=== PATIENT | female | born 1945 | race Caucasian/White ===

== ENCOUNTER → 2016-09-10 | Outpatient (CLI) | payer OTHER | END | disposition home or self-care (01) | LOC: C.CPL 12:58 | DX: Z01.810 Encounter for preprocedural cardiovascular examination (principal) ==

== ENCOUNTER → 2016-10-15 | Outpatient (CLI) | payer OTHER ==
[2016-10-15 13:09] LABS: HEMATOCRIT 36.5 % (37-47); MEAN CELL VOLUME 85.1 fL (80-100); MEAN CORPUSCULAR HEMOGLOBIN 28.9 pg (25-34); PLATELET COUNT 279 K/uL (130-400); RED BLOOD COUNT 4.29 M/uL (4.2-5.4); WHITE BLOOD COUNT 6.83 K/uL (4.8-10.8)
[2016-10-15 13:27] LABS: URINE APPEARANCE CLEAR (CLEAR); URINE BILIRUBIN NEG (NEG); URINE COLOR YELLOW; URINE NITRITE NEG (NEG); URINE SPECIFIC GRAVITY 1.014 (1.000-1.030); UROBILINOGEN NEG (NEG)
[2016-10-15 13:32] LABS: MANUAL MICROSCOPIC REQUIRED? NO; REVIEW REQ? NO
[2016-10-15 13:35] LABS: BLOOD UREA NITROGEN 19 mg/dl (7-18); CALCIUM 9.3 mg/dl (8.5-10.1); CARBON DIOXIDE 31 mmol/L (21-32); CHLORIDE 100 mmol/L (98-107); GLUCOSE 98 mg/dl (70-99); PHOSPHORUS 3.1 mg/dl (2.5-4.9); POTASSIUM 3.6 mmol/L (3.5-5.1); SODIUM 138 mmol/L (136-145)
[2016-10-15 13:52] LABS: URINE PROTIEN/CREAT RATIO 0.1 (0-0.2); URINE TOTAL PROTEIN 12.5 mg/dl (0-11.9)
== END | disposition home or self-care (01) ==
LOC: C.LAB1850 11:29
PROVIDERS: ATTEND Internal Medicine Nephrology
DX: I12.9 Hypertensive chronic kidney disease with stage 1 through stage 4 chronic kidney disease, or unspecified chronic kidney disease (principal); N18.3 Chronic kidney disease, stage 3 (moderate); E55.9 Vitamin D deficiency, unspecified; N25.81 Secondary hyperparathyroidism of renal origin; D64.9 Anemia, unspecified

== ENCOUNTER → 2016-11-20 | Outpatient (CLI) | payer OTHER ==
[2016-11-28 19:49] LABS: ALBUMIN 4.3 G/DL (3.8-4.8); ANTI-CENTROMERE AB <1.0 NEG AI (<1.0 NEG); ANTI-SS-A <1.0 NEG AI (<1.0 NEG); ANTI-SS-B <1.0 NEG AI (<1.0 NEG); Sm Antibody <1.0 NEG AI (<1.0 NEG); TOTAL PROTEIN 7.1 G/DL (6.2-8.3)
== END | disposition home or self-care (01) ==
LOC: C.LAB1850 15:03
PROVIDERS: ATTEND Internal Medicine Rheumatology
DX: R76.8 Other specified abnormal immunological findings in serum (principal)

== ENCOUNTER → 2017-04-22 | Outpatient (CLI) | payer OTHER ==
[2017-04-22 14:18] LABS: HEMATOCRIT 37.1 % (37-47); MEAN CELL VOLUME 88.1 fL (80-100); MEAN CORPUSCULAR HEMOGLOBIN 29.9 pg (25-34); PLATELET COUNT 265 K/uL (130-400); RED BLOOD COUNT 4.21 M/uL (4.2-5.4); WHITE BLOOD COUNT 6.67 K/uL (4.8-10.8)
[2017-04-22 14:27] LABS: URINE APPEARANCE CLEAR (CLEAR); URINE BILIRUBIN NEG (NEG); URINE COLOR YELLOW; URINE EPITHELIAL CELL AUTO 0-5 /lpf (0-5); URINE NITRITE NEG (NEG); URINE SPECIFIC GRAVITY 1.014 (1.000-1.030); UROBILINOGEN NEG (NEG)
[2017-04-22 14:32] LABS: ALT/SGPT 13 U/L (12-78); AST/SGOT 17 U/L (15-37); BLOOD UREA NITROGEN 21 mg/dl (7-18); CALCIUM 9.5 mg/dl (8.5-10.1); CARBON DIOXIDE 28 mmol/L (21-32); CHLORIDE 101 mmol/L (98-107); GLUCOSE 98 mg/dl (70-99); MANUAL MICROSCOPIC REQUIRED? NO; POTASSIUM 3.5 mmol/L (3.5-5.1); REVIEW REQ? NO; SODIUM 138 mmol/L (136-145)
[2017-04-22 14:35] LABS: ALB/GLOB RATIO 1.1 (0.9-2); ALKALINE PHOSPHATASE 74 U/L (45-117); URINE PROTIEN/CREAT RATIO 0.1 (0-0.2); URINE TOTAL PROTEIN 10.2 mg/dl (0-11.9)
== END | disposition home or self-care (01) ==
LOC: C.LAB1850 12:18
PROVIDERS: ATTEND Internal Medicine Nephrology
DX: I12.9 Hypertensive chronic kidney disease with stage 1 through stage 4 chronic kidney disease, or unspecified chronic kidney disease (principal); N18.3 Chronic kidney disease, stage 3 (moderate); E55.9 Vitamin D deficiency, unspecified; N25.81 Secondary hyperparathyroidism of renal origin; D64.9 Anemia, unspecified

== ENCOUNTER → 2017-07-03 | Outpatient (CLI) | payer OTHER | END | disposition home or self-care (01) | LOC: C.LAB1850 15:51 | PROVIDERS: ATTEND Internal Medicine Rheumatology | DX: R76.8 Other specified abnormal immunological findings in serum (principal) ==

== ENCOUNTER → 2017-10-18 | Outpatient (CLI) | payer OTHER ==
[2017-10-18 12:23] LABS: HEMATOCRIT 36.1 % (37-47); HEMOGLOBIN 12.1 g/dL (12.0-16.0); MEAN CELL VOLUME 87.6 fL (80-100); MEAN CORPUSCULAR HEMOGLOBIN 29.4 pg (25-34); MEAN CORPUSCULAR HGB CONC 33.5 g/dl (32-36); MEAN PLATELET VOLUME 10.1 fL (7.4-10.4); PLATELET COUNT 274 K/uL (130-400); RED CELL DISTRIBUTION WIDTH CV 13.6 % (11.5-14.5); RED CELL DISTRIBUTION WIDTH SD 43.9 fL (36.4-46.3); WHITE BLOOD COUNT 6.69 K/uL (4.8-10.8)
[2017-10-18 12:31] LABS: ALBUMIN 3.9 gm/dl (3.4-5.0); ALT/SGPT 19 U/L (12-78); AST/SGOT 18 U/L (15-37); BLOOD UREA NITROGEN 23 mg/dl (7-18); CALCIUM 10.4 mg/dl (8.5-10.1); CARBON DIOXIDE 28 mmol/L (21-32); CREATININE 1.37 mg/dl (0.60-1.20); GLUCOSE 95 mg/dl (70-99); POTASSIUM 3.5 mmol/L (3.5-5.1); SODIUM 132 mmol/L (136-145)
[2017-10-18 12:32] LABS: ALKALINE PHOSPHATASE 68 U/L (45-117); TOTAL PROTEIN 7.4 gm/dl (6.4-8.2)
== END | disposition home or self-care (01) ==
LOC: C.LAB1850 10:35
PROVIDERS: ATTEND Internal Medicine Nephrology
DX: N18.3 Chronic kidney disease, stage 3 (moderate) (principal); I12.9 Hypertensive chronic kidney disease with stage 1 through stage 4 chronic kidney disease, or unspecified chronic kidney disease; N25.81 Secondary hyperparathyroidism of renal origin; D64.9 Anemia, unspecified; I73.9 Peripheral vascular disease, unspecified; E55.9 Vitamin D deficiency, unspecified; R76.8 Other specified abnormal immunological findings in serum

== ENCOUNTER → 2017-12-17 | Outpatient (CLI) | payer OTHER ==
[2017-12-17 11:07] LABS: ALBUMIN 3.6 gm/dl (3.4-5.0); BLOOD UREA NITROGEN 23 mg/dl (7-18); CALCIUM 9.3 mg/dl (8.5-10.1); CARBON DIOXIDE 32 mmol/L (21-32); GLUCOSE 92 mg/dl (70-99); PHOSPHORUS 3.4 mg/dl (2.5-4.9); SODIUM 138 mmol/L (136-145)
== END | disposition home or self-care (01) ==
LOC: C.LAB1850 09:53
PROVIDERS: ATTEND Internal Medicine Nephrology
DX: N18.3 Chronic kidney disease, stage 3 (moderate) (principal); I12.9 Hypertensive chronic kidney disease with stage 1 through stage 4 chronic kidney disease, or unspecified chronic kidney disease; E55.9 Vitamin D deficiency, unspecified; N25.81 Secondary hyperparathyroidism of renal origin; D64.9 Anemia, unspecified; E87.1 Hypo-osmolality and hyponatremia

== ENCOUNTER 2023-08-05 08:13 | Inpatient (IN) ==
--- OUTSIDE RECORDS SUMMARY | 2023-08-05 08:34 | External Medical Summary | Continuity of Care Document ---
Author Name Unknown Organization [facility] Address [address] [place] [id number] Care Team Providers Care Blood And Plasma Laboratory Assistant Name Role Phone Peter Stark Primary Care Physician [phone] Encounter [facility] [id number] Date(s): 08/01/23 - 08/01/[address] [phone] Discharge Disposition: Home or Self Care Attending Physician: DOMINIQUE Garcia Ashley Referring Physician: DOMINIQUE Garcia Ashley Allergies, Adverse Reactions, Alerts Substance Reaction Severity Status doxycycline Heartburn Moderate Active diltiazem Active doxepin Active Macrobid Active Zestril Hives Active Tagamet Active Active Orudis Active Protonix Active IVP dye Active Cymbalta Active HYDROcodone Dizzy Moderate Active Tagamet HB Hives Moderate Active regadenoson Loss of vision of ri ght eye Loss of vision of left eye Moderate Active Immunizations Given and Recorded Vaccine Date Status Refusal Reason SARS-CoV-2 (COVID-19) mRNA-1273 vaccine 1 10/08/20 Recorded SARS-CoV-2 (COVID-19) mRNA-1273 vaccine 2 09/10/20 Recorded pneumococcal 23-valent vaccine 3 07/02/07 Recorded 1Result Comment: 2021-03-10: Historical information-source unspecified 2Result Comment: 2021-03-10: Historical information-source unspecified 3Result Comment: 2021-03-10: Historical information-source unspecified Medications amLODIPine 5 mg oral tablet Start: 04/21/20 14:48:00 EDT, 1 tab, PO, bid Start Date: 04/21/20 Status: Ordered Dulcolax Laxative 5 mg oral delayed release tablet Start: 03/11/21 10:54:00 EDT, 1 tab, PO, Daily Start Date: 03/11/21 Status: Ordered furosemide Start: 01/14/23 14:25:00 EDT Start Date: 01/14/23 Status: Ordered gabapentin 300 mg oral capsule Start: 08/30/22 10:24:00 EST, 1 cap, PO, Daily Start Date: 08/30/22 Status: Ordered Linzess 72 mcg oral capsule Start: 03/04/23 14:25:00 EDT, 1 cap, PO, Daily Start Date: 03/04/23 Status: Ordered LORazepam 0.5 mg oral tablet Start: 03/04/23 14:27:00 EDT, 1 tab, PO, Daily, PRN: as needed for anxiety Start Date: 03/04/23 Status: Ordered losartan 50 mg oral tablet Start: 08/30/22 10:25:00 EST, 1 tab, PO, Daily Start Date: 08/30/22 Status: Ordered Medrol Dosepak 4 mg oral tablet Start: 10/08/22 11:02:00 EDT, See Instructions, Disp# 21 tab, Take as directed on package labeling for 6 days., Pharmacy: [id number] Start Date: 10/08/22 Stop Date: 10/14/22 Status: Ordered metoprolol succinate 25 mg oral tablet, extended release Start: 03/09/21 13:29:00 EDT, 1 tab, PO, bid Start Date: 03/09/21 Status: Ordered simethicone 80 mg oral tablet, chewable Start: 03/11/21 10:54:00 EDT, 1 tab, PO, ac and hs, PRN: Abdominal bloating - gas pain Start Date: 03/11/21 Status: Ordered Tylenol 500 mg oral tablet Start: 03/11/21 10:54:00 EDT, 2 tab, PO, q6h, PRN: fever/mild pain (1-3) Start Date: 03/11/21 Status: Ordered Vitamin D3 50,000 intl units (1250 mcg) oral capsule Start: 04/21/20 14:49:00 EDT, 1 cap, PO, [id number] Start Date: 04/21/20 Status: Ordered Problem List Condition Confirmation Course Effective Dates Status H ealth Status Informant ANXIETY Confirmed Active Varghese esophagus Confirmed Active Constipation Confirmed Active DEPRESSION Confirmed Active GERD Confirmed Active HTN (hypertension) Confirmed Active Hyperlipidemia Confirmed Active Liver lesion Confirmed Active Low back pain Confirmed Active Right lumbar radiculopathy Confirmed Active Pain Confirmed Active Odynophagia Confirmed Active Procedures Procedure Date Related Diagnosis Body Site Status Benign tumor of breast 1982 Completed Hysterectomy 1973 Completed Appendectomy 1953 Completed Tonsillectomy 1948 Completed Colonoscopy Completed Endoscopy Completed 1removed Results Radiology Reports * Exam Date Time Procedure Performing Provider Status 08/01/23 11:09 AM NVI Epi Steroid Inj Lumb Or Sacral Spi Shira Pratt; Final Notes: (NVI Epi Steroid Inj Lumb Or Sacral Spine) Reason For Exam: L3/L4 IL TASHI lumbar spine (To use Gadavist) NVI Epi Steroid Inj Lumb Or Sacral Spine PROCEDURE: FLUOROSCOPY-GUIDED INTERLAMINAR EPIDURAL STEROID INJECTION L3-L4 LUMBOSACRAL SPINE CLINICAL HISTORY: M54.16: Radiculopathy, lumbar region; L3/L4 IL TASHI lumbar spine (To use Gadavist) PHYSICIAN: Jules Gonzalez M.D. FLUOROSCOPY TIME: 1.3 minutes TECHNIQUE: After explaining the risks which include but are not limited to pain, infection, bleeding, headacheand nerve injury, benefits, and alternatives of the procedure verbal consent was obtained from the patient. She was placed prone on the fluoroscopy table. The skin was marked at L3-L4 to target the epidural space through the interlaminar access. A timeout was performed. She was prepped and draped in the usual sterile manner. Local anesthetic was administered at the needle placement site. Next, a 3.5 inch 22-gauge spinal needle was taken and guided under fluoroscopy into the posterior epidural space through the interlaminar access at L3-L4. The needle position was verified with injection of 1cc of Gadavist. Next, 4cc mixture of Kenalog 40 mg mixed with lidocaine 1% was injected into the epidural space. The needle was withdrawn, hemostasis was achieved and sterile dressing was applied. She tolerated the procedure well. She was given a pain log to document the pain response over a period of 7 days. Finally, she left the fluoroscopy suite in stable condition. IMPRESSION: Fluoroscopy guided interlaminar epidural steroid injection lumbar spine at L3-L4 as described above. Workstation ID: [id number] Final Dictated by:MD CarlosHina Dictated DT/TM:08/01/2023 3:53 Signed by:MD Gonzalez Krishnamoorthy Signed (Electronic Signature):08/01/2023 3:52 p Social History Social History Type Response Smoking Status Never smoked cigaret richard Sex Female Patient Care team information Care Team Personnel Name: DOMINIQUE Garcia Ashley Position: Physician Campus Recruiting Coordinator - Neurosurgery Member Role: Lifetime Relationship Address: Address: [address] [place] [address] [place] [id number] Name: MD Stark Robert C Position: Referring Member Role: Primary Care Provider Address: Address: [address] [place] [address] [place] [id number] Care Team Related Persons Name: SENAIT LIMA Address: home [address] [facility] [place] [phone] Name: VAN POWELL Address: home NO ADDRESS PROVIDED
[2023-08-05 10:05] LABS: Basophils # (auto) 0.06 K/uL (0.00-0.20); Basophils % (auto) 0.6 %; Eosinophils # (auto) 0.03 K/uL (0.00-0.50); Eosinophils % (auto) 0.3 %; Hematocrit (blood only) 41.7 % (37.0-47.0); Hemoglobin 13.6 g/dl (12.0-16.0); Immature Granulocytes # (auto) 0.04 K/uL (0.01-0.20); Immature Granulocytes % (auto) 0.4 %; Lymphocytes # (auto) 2.45 K/uL (1.20-3.40); Lymphocytes % (auto) 23.8 %; Mean Corpuscular Hemoglobin 29.1 pg (25.0-34.0); Mean Corpuscular Hgb Conc 32.6 g/dL (32.0-36.0); Mean Corpuscular Volume 89.3 fL (80.0-100.0); Mean Platelet Volume 9.8 fL (9.4-12.4); Monocytes # (auto) 0.85 K/uL (0.11-0.59); Monocytes % (auto) 8.3 %; Neutrophils # (auto) 6.85 K/uL (1.40-6.50); Neutrophils % (auto) 66.6 %; Platelet Count 308 K/uL (130-400); RDW Coefficient of Variation 13.2 % (11.5-14.5); RDW Standard Deviation 43.2 fL (36.4-46.3); Red Blood Count 4.67 M/uL (4.20-5.40); White Blood Count 10.28 K/ul (4.8-10.8)
[2023-08-05 10:06] LABS: Appearance Urine Clear (Clear); Bilirubin Urine Negative (Negative); Blood Urine Negative (Negative); Color Urine Yellow; Glucose Urine UA Negative (Negative); Ketones Urine Negative (Negative); Leukocyte Esterase Urine Negative (Negative); Nitrite Urine Negative (Negative); Protein Urine Negative (Negative); Specific Gravity Urine 1.011 (1.000-1.030); Urobilinogen Urine Negative (Negative)
--- NOTE | 2023-08-05 10:25 | Emergency Department Note ---
History of Present Illness General Chief complaint: Flank Pain Stated complaint: RIGHT SIDE PAIN Time Seen by Provider: 08/05/23 10:06 Source: patient and old records reviewed Mode of arrival: ambulatory Limitations: no limitations History of Present Illness This patient is 77-year-old female who comes in complaining of right flank pain since Saturday its gotten worse overnight no shortness breath or pleurisy no injury no chest pain she felt like she could have a low-grade temperature of 98 8 which is high for her she says no nausea or vomiting. She has chronic constipation was no different no new numbness or weakness she wears a brace on her legs secondary to back pain but no acute swelling or pain in her leg. She did have an ultrasound a couple months ago for chronic bloating and she said that there were no stones but her gallbladder looked a little distended. No rash. Home Medications Medication Instructions Recorded Confirmed Type lorazepam 0.5 mg tablet 0.5 mg PO DAILY PRN Anxiety 04/14/21 08/05/23 History metoprolol succinate 25 mg 25 mg PO BID 04/14/21 08/05/23 History tablet,extended release 24 hr acetaminophen 500 mg tablet 1,000 mg PO Q6H PRN Back Pain 04/27/21 08/05/23 History (Tylenol Extra Strength) ergocalciferol (vitamin D2) 1,250 50,000 unit PO Q30D 05/13/23 08/05/23 History mcg (50,000 unit) capsule furosemide 20 mg tablet 20 - 40 mg PO DAILY PRN Fluid 05/13/23 08/05/23 History Retention linaclotide 72 mcg capsule 72 mcg PO QAM 05/13/23 08/05/23 History (Linzess) losartan 100 mg tablet 100 mg PO QAM 05/13/23 08/05/23 History amlodipine 10 mg tablet 10 mg PO DAILY 08/05/23 08/05/23 History Allergies Allergy/AdvReac Type Severity Reaction Status Date / Time atropine [From ] Allergy Intermediate Hives Verified 06/05/23 11:57 cimetidine [From Tagamet] Allergy Intermediate Hives Verified 06/05/23 11:57 hyoscyamine [From ] Allergy Intermediate Hives Verified 06/05/23 11:57 Iodinated Contrast Media Allergy Intermediate Hives Verified 06/05/23 11:57 [Iodinated Contrast- Oral and IV Dye] nitrofurantoin Allergy Intermediate Rash Verified 06/05/23 11:57 [From Macrobid] phenobarbital [From ] Allergy Intermediate Hives Verified 06/05/23 11:57 regadenoson Allergy Intermediate loss of Verified 06/05/23 11:57 vision, low Blood pressure scopolamine [From ] Allergy Intermediate Hives Verified 06/05/23 11:57 ketoprofen [From Orudis] Allergy Mild Rash Verified 06/05/23 11:57 duloxetine [From Cymbalta] AdvReac Intermediate Swelling Verified 06/05/23 11:57 diltiazem AdvReac Mild Hallucinati Verified 06/05/23 11:57 ng doxepin AdvReac Mild Hallucinati Verified 06/05/23 11:57 ng doxycycline AdvReac Mild Heartburn Verified 06/05/23 11:57 hydrocodone AdvReac Mild Dizziness Verified 06/05/23 11:57 lisinopril [From Zestril] AdvReac Mild Swelling Verified 06/05/23 11:57 pantoprazole [From Protonix] AdvReac Mild Dizziness Verified 06/05/23 11:57 Past Med/Surg History Medical History Hx of cardiac murmur has had since age 3, "it comes and goes"; f/u dr. 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"; F/U DR PATEL Surgical History History of left cataract extraction History of dilatation and curettage History of esophagogastroduodenoscopy (EGD) History of breast biopsy RIGHT BENIGN History of hysterectomy History of appendectomy History of tonsillectomy H/O colonoscopy Family History Other No known health problems Social History Smoking Status: Never smoker Second Hand Exposure: No; Do You Dip or Chew Tobacco: No; Hx Alcohol Use: No Hx Substance Use: Yes (medical marijuana) Last Used Substance Other:: none for over 1 year Substance Use Type Other:: MEDICAL MARIJUANA CARD Preferred Language: Lao Communication Ability: Effective Flake Cutter Operator Required: No Beliefs That Will Affect Care: None Current Living Situation: Spouse current occupational status: retired Feels Safe at Home: Yes Assistive Devices: Brace/Splint/Immobilizer, Cane and Glasses Review of Systems A total of 10 systems reviewed and were otherwise negative Physical Exam Vital Signs Vital Signs - 24 hr 08/05/23 08:24 08/05/23 14:20 Temperature 36.8 C Temperature Source Temporal Artery Scan Pulse Rate 65 Pulse Rate [Right Finger] 68 Respiratory Rate 18 18 Respiratory Effort / Characteristics Non-Labored Spontaneous Non-Labored Spontaneous Respiratory Depth Normal Normal Respiratory Pattern Regular Blood Pressure 211/95 H Blood Pressure [Right Arm] 198/84 H Blood Pressure Mean 133 Blood Pressure Mean [Right Arm] 122 Blood Pressure Position Sitting Pulse Oximetry 100 98 Oxygen Delivery Method Room Air Room Air Sepsis Recent Fever Within 48 Hours No Sepsis New/Unexplained Change in Mental Status N/A Sepsis Action Taken by Nursing No Action Required General: Well developed well nourished older female who appears in no acute distress, breathing comfortably on room air. Normal speech HEENT: Normal cephalic atraumatic. Pupils are equal round and reactive to light. Extraocular movements are intact. Oropharynx is pink with moist mucous membranes. No swelling of the mouth lips or tongue. Neck: Supple with a midline trachea. No meningeal signs or stiffness, no JVD or bruits. No Stridor. Chest: Clear to auscultation bilaterally. No wheezes or rhonchi. No increased work of breathing. Heart: Regular rate and rhythm without murmurs or gallops. Abdomen: Soft nontender, nondistended without rebound guarding or rigidity. She is moderately tender palpation the right lateral abdomen Extremities: No cyanosis clubbing or edema. No calf tenderness or assymetry Spine/Back. Non tender to palpation. No CVA tenderness Skin: Good turgor without rashes. Neurologic exam: Cranial nerves two through 12 are intact. Motor and sensation are intact and symmetrical throughout. Course Administered Medications Discontinued Medications Sodium Chloride (Nss) 500 mls @ 999 mls/hr IV .Q31M ONE Stop: 08/05/23 14:36 Last Admin: 08/05/23 14:17 Dose: 999 mls/hr Documented By: JAMEY Morphine Sulfate (Morphine Sulfate 2 Mg/Ml Carp) 2 mg IV NOW STA Stop: 08/05/23 13:32 Last Admin: 08/05/23 14:17 Dose: 2 mg Documented By: JAMEY Ondansetron HCl (Ondansetron Inj 2 Mg/Ml 2 Ml Vial) 4 mg IV NOW STA Stop: 08/05/23 13:32 Last Admin: 08/05/23 14:17 Dose: 4 mg Documented By: JAMEY Medical Decision Making Differential Diagnosis Kidney stone, kidney infection, gallbladder disease, musculoskeletal, pulmonary disease, electrolyte or metabolic abnormality Medical Records Attestation: I reviewed the patient's medical records. Home Medications Current Medication List: was personally reviewed by me Laboratory Data Attestation: I reviewed the patient's lab results. 08/05/23 09:45 08/05/23 Unknown Lab Results 08/05/23 08/05/23 08/05/23 Range/Units 09:45 14:53 Unknown WBC 10.28 (4.8-10.8) K/ul RBC 4.67 (4.20-5.40) M/uL Hgb 13.6 (12.0-16.0) g/dl Hct 41.7 (37.0-47.0) % MCV 89.3 (80.0-100.0) fL MCH 29.1 (25.0-34.0) pg MCHC 32.6 (32.0-36.0) g/dL RDW Std Deviation 43.2 (36.4-46.3) fL RDW Coeff of Jordi 13.2 (11.5-14.5) % Plt Count 308 (130-400) K/uL MPV 9.8 (9.4-12.4) fL Immature Gran % (Auto) 0.4 % Neut % (Auto) 66.6 % Lymph % (Auto) 23.8 % [place] % (Auto) 8.3 % Eos % (Auto) 0.3 % Baso % (Auto) 0.6 % Neut # (Auto) 6.85 H (1.40-6.50) K/uL Lymph # (Auto) 2.45 (1.20-3.40) K/uL [place] # (Auto) 0.85 H (0.11-0.59) K/uL Eos # (Auto) 0.03 (0.00-0.50) K/uL Baso # (Auto) 0.06 (0.00-0.20) K/uL Immature Gran # (Auto) 0.04 (0.01-0.20) K/uL ESR 50 H (0-30) mm/hr PT 10.5 (9.0-12.0) Seconds INR 1.0 (0.9-1.1) Sodium TNP 140 Potassium TNP 3.5 Chloride 105 (98-107) mmol/L Carbon Dioxide 24 (21-32) mmol/L Anion Gap TNP BUN 18 (6-23) mg/dl Creatinine 1.18 (0.6-1.2) mg/dl Est Cr Clr Drug Dosing 33.4 ml/min Est GFR ( Amer) 50.8 ml/min Est GFR (Non-Af Amer) 43.8 ml/min BUN/Creatinine Ratio 15.3 (10-20) Glucose 100 H (70-99(Fasting)) mg/dl Lactate 0.8 (0.4-2.0) mmol/L Calcium 10.0 (8.6-10.3) mg/dl Total Bilirubin 0.5 (0.2-1.0) mg/dl AST TNP 16 ALT 13 (7-52) U/L Alkaline Phosphatase 60 (34-104) U/L C-Reactive Protein < 0.50 (0-0.5) mg/dl Total Protein 8.3 (6.0-8.3) gm/dl Albumin 4.7 (3.4-5.0) gm/dl Globulin 3.6 (2.5-4.0) gm/dl Albumin/Globulin Ratio 1.3 (0.9-2) Triglycerides 250 H (0-150) mg/dl Lipase 487 H (11-82) U/L Urine Color Yellow Urine Appearance Clear (Clear) Urine pH 8.0 H (4.5-7.5) Ur Specific [place] 1.011 (1.000-1.030) Urine Protein Negative (Negative) Urine Glucose (UA) Negative (Negative) Urine Ketones Negative (Negative) Urine Blood Negative (Negative) Urine Nitrite Negative (Negative) Urine Bilirubin Negative (Negative) Urine Urobilinogen Negative (Negative) Ur Leukocyte Esterase Negative (Negative) Imaging Data Attestation: I personally reviewed and interpreted this imaging study as follows: My Impression: CT stone studyno obstructive uropathy seen . no gallstones seen Radiologist's Impression: Abdomen/Pelvis CT 08/05/23 10:[address] WITHOUT CONTRAST CT DOSE: 584.53 mGy.cm HISTORY: rt flank pain TECHNIQUE: Multiaxial CT images of the abdomen and pelvis were performed without contrast. A dose lowering technique was utilized adhering to the principles of ALARA. COMPARISON STUDY: Abdomen and pelvis CT 04/27/2021. FINDINGS: Mild dependent changes again noted within the lung bases. No pneumoperitoneum. No pneumatosis. Degenerative changes within the lower lumbar spine and mild levoscoliosis. No acute fractures identified. Stable 12 mm cyst within the liver. There is sludge layering within the gallbladder. No gallbladder wall thickening. Mild dilatation of the main pancreatic duct which is new compared to the prior study. This measures up to 4.5 mm in diameter. The unenhanced spleen and adrenal glands unremarkable. Moderate cortical scarring within the right kidney, unchanged. Normal left kidney. No renal or ureteral stones. No hydronephrosis. Moderate calcified plaque within the normal caliber abdominal aorta. No retroperitoneal or pelvic lymphadenopathy. No pelvic free fluid. Normal bladder. Prior hysterectomy. Suboptimal evaluation for bowel pathology due to the lack of intravenous and oral contrast. However, there is no definite bowel wall thickening or obstruction. Colonic diverticulosis. No evidence for acute diverticulitis. Submucosal fat deposition again noted within the ascending colon and transverse colon which is likely chronic. The appendix is surgically absent. IMPRESSION: 1. No renal or ureteral stones. No hydronephrosis. 2. No bowel wall thickening or obstruction. 3. Colonic diverticulosis. No evidence for acute diverticulitis. 4. There is sludge within the gallbladder, unchanged. No gallbladder wall thickening. 5. Mild dilatation of main pancreatic duct which has progressed in the interval. This measures up to 4.5 mm in diameter. Follow-up GI consultation recommended for further evaluation. ACT 112: Positive. There are findings on this exam that require communication between the performing entity and the patient following Patient Test Result Information Act ([place] Act 112) guidelines. Electronically signed by: Mukesh Nicholson M.D. 08/05/2023 12:56 PM Chest X-Ray 08/05/23 14:56 SINGLE VIEW CHEST CLINICAL HISTORY: Right sided chest/upper abdominal pain. FINDINGS: An AP, portable, upright chest radiograph is obtained. No prior studies are available for comparison at the time of dictation. The heart is enlarged. The pulmonary vasculature is noncongested. Nonspecific interstitial thickening is likely chronic. There is mild bibasilar scarring/atelectasis. The lungs and pleural spaces are otherwise clear. No pneumothorax is seen. The skeletal structures are osteopenic. The bony thorax is grossly intact. IMPRESSION: Mild cardiomegaly with no active disease in the chest. ACT 112: Negative or not required by law. Electronically signed by: Yang Wolfe M.D. 08/05/2023 3:21 PM ECG Data Attestation: I personally reviewed and interpreted this ECG as follows: Indication: + abdominal pain and + back/shoulder pain Rate (beats per minute): 64 Rhythm: + normal sinus ECG Intervals/blocks: + Normal QRS, + Normal QT and + Normal UT ECG Henriette: + Normal ECG ST segments: + Normal ST segments ECG Findings: + PACs; no PVCs Comparison ECG Date: from (09/10/16) Change: no significant change MDM Narrative This patient comes in as described above. I did see her out in triage to help expedite her care. She is having persistent pain under her right ribs laterally . She is reproducibly tender there. There is no rash. She has a history of potentially gallbladder distention she has multiple allergies to medications. IV access was established and blood work was obtained, I did order CAT scan without contrast. She has no white count or fever to suggest infection/sepsis . She has no significant anemia. Her lipase is significantly elevated in the 400 range. She has no elevation of her liver function test. She has no elevation of her white count. EKG does not show any ischemic changes or ectopy. She has no elevation of her troponin. I did discuss the case at length with Dr. Wilkins. He feels we should admit the patient to the medical team and he will talk to one of the other GI docs about doing ERCP on her given her elevated lipase as well as her dilated pancreatic duct. He did not recommend antibiotics at this point. I have consulted and discussed the case with the [facility] hospitalist team and they will see her in the ER for these measures. Impression & Plan Pancreatitis, Abdominal pain, Back pain, Chronic kidney disease, stage III (moderate) Discharge Plan Visit Data Chief Complaint: Flank Pain Stated Complaint: RIGHT SIDE PAIN ED Provider: Giuliano Ballesteros Discharge Problem: Pancreatitis, Abdominal pain, Back pain, Chronic kidney disease, stage III (moderate) Forms Stand Alone Forms: My [facility] Prescriptions Prescriptions: No Action lorazepam 0.5 mg tablet 0.5 mg PO DAILY PRN (Reason: Anxiety) metoprolol succinate 25 mg tablet extended release 24 hr 25 mg PO BID acetaminophen [Tylenol Extra Strength] 500 mg Tablet 1,000 mg PO Q6H PRN (Reason: Back Pain) furosemide 20 mg Tablet 20 - 40 mg PO DAILY PRN (Reason: Fluid Retention) losartan 100 mg Tablet 100 mg PO QAM Linzess 72 mcg capsule 72 mcg PO QAM ergocalciferol (vitamin D2) 1,250 mcg (50,000 unit) capsule 50,000 unit PO Q30D amlodipine 10 mg tablet 10 mg PO DAILY Referrals Referrals: Peter Stark [Primary Care Provider] -
[2023-08-05 10:36] LABS: Alanine Aminotransferase 13 U/L (7-52); Albumin Globulin Ratio 1.3 (0.9-2); Albumin Level 4.7 gm/dl (3.4-5.0); Alkaline Phosphatase 60 U/L (34-104); BUN Creatinine Ratio 15.3 (10-20); Bilirubin,Total 0.5 mg/dl (0.2-1.0); Blood Urea Nitrogen 18 mg/dl (6-23); Carbon Dioxide 24 mmol/L (21-32); Chloride 105 mmol/L (98-107); Creatinine Clr Calc Pharmacy 33.4 ml/min; Est GFR (African American) 50.8 ml/min; Est GFR (Non-African American) 43.8 ml/min; Globulin 3.6 gm/dl (2.5-4.0); Glucose 100 mg/dl (70-99(Fasting)); Lipase 487 U/L (11-82); Total Protein 8.3 gm/dl (6.0-8.3)
[2023-08-05 11:47] LABS: Aspartate Aminotransferase 16 U/L (13-39); Potassium 3.5 mmol/L (3.5-5.1); Sodium 140 mmol/L (136-145)
--- NOTE | 2023-08-05 12:57 | CT Scan Report ---
ABDOMEN AND PELVIS CT WITHOUT CONTRAST CT DOSE: 584.53 mGy.cm HISTORY: rt flank pain TECHNIQUE: Multiaxial CT images of the abdomen and pelvis were performed without contrast. A dose lo wering technique was utilized adhering to the principles of ALARA. COMPARISON STUDY: Abdomen and pelvis CT 04/27/2021. FINDINGS: Mild dependent changes again noted within the lung bases. No pneumoperitoneum. No pneumatos is. Degenerative changes within the lower lumbar spine and mild levoscoliosis. No acute fractures yadiel ntified. Stable 12 mm cyst within the liver. There is sludge layering within the gallbladder. No gall bladder wall thickening. Mild dilatation of the main pancreatic duct which is new compared to the ajay or study. This measures up to 4.5 mm in diameter. The unenhanced spleen and adrenal glands unremarkab le. Moderate cortical scarring within the right kidney, unchanged. Normal left kidney. No renal or ur eteral stones. No hydronephrosis. Moderate calcified plaque within the normal caliber abdominal aorta . No retroperitoneal or pelvic lymphadenopathy. No pelvic free fluid. Normal bladder. Prior hysterect zenaida. Suboptimal evaluation for bowel pathology due to the lack of intravenous and oral contrast. Love walter, there is no definite bowel wall thickening or obstruction. Colonic diverticulosis. No evidence f or acute diverticulitis. Submucosal fat deposition again noted within the ascending colon and transve rse colon which is likely chronic. The appendix is surgically absent. IMPRESSION: 1. No renal or ureteral stones. No hydronephrosis. 2. No bowel wall thickening or obstruction. 3. Colonic diverticulosis. No evidence for acute diverticulitis. 4. There is sludge within the gallbladder, unchanged. No gallbladder wall thickening. 5. Mild dilatation of main pancreatic duct which has progressed in the interval. This measures up to 4.5 mm in diameter. Follow-up GI consultation recommended for further evaluation. ACT 112: Positive. There are findings on this exam that require communication between the performing entity and the patient following Patient Test Result Information Act ([place] Act 112) guidelines. Electronically signed by: Mukesh Nicholson M.D. 08/05/2023 12:56 PM
[2023-08-05] MEDS ORDERED: MoRPHine SULFATE 2 MG/ML CARP IV STA (13:31)
[2023-08-05] MEDS ORDERED: ONDANSETRON INJ 2 MG/ML 2 ML VIAL IV STA (13:31)
[2023-08-05] MEDS ORDERED: SODIUM CHLORIDE 0.9% 500 ML IV ONE (14:06)
[2023-08-05] MEDS ORDERED: LACTATED RINGER'S 1,000 ML IV ONE (14:17)
--- NOTE | 2023-08-05 14:19 | History & Physical Report ---
Date of Service August 05, 2023 Assessment & Plan (1) Abdominal pain: Plan: -Admit to the PCU on tele -Currently hypertensive at 198/84 but otherwise stable -Presented to the ED with multiple days of progressive epigastric/right upper quadrant/right flank pain -CT of the abd/pelvis wo con shows "mild dilatation of main pancreatic duct which has progressed in the interval. This measures up to 4.5 mm in diameter" without other acute findings -Lipase is significantly elevated at 487 -Findings are concerning for possible pancreatic duct obstruction causing acute pancreatitis -Spoke with [facility], appreciate their assistance: >They confirmed that [facility] will have someone available for ERCP if needed tomorrow >Admit, NPO at midnight, pain control, no abx at this time >Agrees with obtaining MRCP on admission -Will obtain STAT MRCP for further evaluation -Will also obtain STAT CXR to rule out other possible etiologies of her pain -BISAP Score at the time of admission is 1; Patient is currently at an increased risk of mortality with pancreatitis. However, mortality does not significantly increase until a score of 3 or greater is reached. -She is without other signs of end organ damage, does not meet SIRS criteria, has been hemodynamically stable, and is non-toxic on appearing -GI consult placed -Will obtain triglyceride level, ESR, CRP -S/P 2mg IV morphine, 250 mL NSS, and 4 mg zofran in the ED -Will give 1L LR on admission and continue with LR at 100 mL/hr while NPO -Hold chemical DVT PPX for now with likely ERCP tomorrow -NPO until symptoms improve -AM CBC, CMP, mag, PT/INR (2) Acute pancreatitis: Plan: -See abdominal pain (3) Hypertension: Plan: -Patient noted to be hypertensive at 211/95 on arrival -Patient notes significant hx of white coat syndrome -Did not have her am medications which include amlodipine, metoprolol, and losartan -Likely multifactorial including acute pain, not taking am antihypertensives, and increased anxiety due to white coat syndrome -Denies other symptoms such as headache, vision changes, chest pain -Will see if her BP is better controlled after pain is adequately controlled, if still hypertensive will order IV antihypertensives while NPO (4) GERD without esophagitis: Plan: -Will start 40 mg IV pantoprazole daily while NPO (5) Chronic kidney disease, stage III (moderate): Plan: -Stable Plan The patient was discussed with Dr. Jeffers at the time of the admission History of Present Illness Chief Complaint: Right back/flank pain Primary Care Provider: Peter Joiner is a 77 year old female with a PMH significant for HTN, stage III CKD, anemia, fibromyalgia, sow transit constipation, and GERD who presented to the [facility] ED on 08/05 with complaints of right sided flank/abd pain. She was noted to be hypertensive on arrival at 211/95 but otherwise stable. Labs were significant for a lipase of 487. CT of the abd/pelvis wo con was read as "1. No renal or ureteral stones. No hydronephrosis. 2. No bowel wall thickening or obstruction. 3. Colonic diverticulosis. No evidence for acute diverticulitis. 4. There is sludge within the gallbladder, unchanged. No gallbladder wall thickening. 5. Mild dilatation of main pancreatic duct which has progressed in the interval. This measures up to 4.5 mm in diameter. Follow-up GI consultation recommended for further evaluation. ". The ED staff spoke with [facility] who is coordinating with [facility] for likely ERCP tomorrow. Prior to admission the patient was given 2gm IV morphine, 4 mg IV zofran, and 500 mL NSS. At the time of the exam the patient was sitting in bed in no acute distress with her and daughter sitting bedside. She states that she was in her normal state of health when she develop acute onset of 8/10, dull/aching RUQ/right flank pain which woke her from sleep on 08/03. Since then the pain has been constant. She denies radiation of the pain to other areas of her body. She has not had much to eat or drink since the onset of the pain, she does not think that eating exacerbates the pain. Her pain continued overnight and was severe this am causing them to come to the ED for evaluation. She did not have her am meds today prior to arrival. She states that the dose of morphine she received at the time of my exam is starting to kick in and reduce her pain. She denies recent fever, chills, chest pain, nausea, vomiting, changes in bowel habits, dysuria, hematuria, melena, worsening LE swelling, and recent trauma. She did have a lumbar spine pain injection last week but denies any complications after. She is a full code and would want her daughter and to make medical decisions for her if she cannot make them herself. She denies tobacco and alcohol use and denies a previous history of compilations with her pancreas. Please refer to Dr. Jeffers's attestation for any changes to the treatment plan Allergies Allergy/AdvReac Type Severity Reaction Status Date / Time atropine [From ] Allergy Intermediate Hives Verified 06/05/23 11:57 cimetidine [From Tagamet] Allergy Intermediate Hives Verified 06/05/23 11:57 hyoscyamine [From ] Allergy Intermediate Hives Verified 06/05/23 11:57 Iodinated Contrast Media Allergy Intermediate Hives Verified 06/05/23 11:57 [Iodinated Contrast- Oral and IV Dye] nitrofurantoin Allergy Intermediate Rash Verified 06/05/23 11:57 [From Macrobid] phenobarbital [From ] Allergy Intermediate Hives Verified 06/05/23 11:57 regadenoson Allergy Intermediate loss of Verified 06/05/23 11:57 vision, low Blood pressure scopolamine [From ] Allergy Intermediate Hives Verified 06/05/23 11:57 ketoprofen [From Orudis] Allergy Mild Rash Verified 06/05/23 11:57 duloxetine [From Cymbalta] AdvReac Intermediate Swelling Verified 06/05/23 11:57 diltiazem AdvReac Mild Hallucinati Verified 06/05/23 11:57 ng doxepin AdvReac Mild Hallucinati Verified 06/05/23 11:57 ng doxycycline AdvReac Mild Heartburn Verified 06/05/23 11:57 hydrocodone AdvReac Mild Dizziness Verified 06/05/23 11:57 lisinopril [From Zestril] AdvReac Mild Swelling Verified 06/05/23 11:57 pantoprazole [From Protonix] AdvReac Mild Dizziness Verified 06/05/23 11:57 Home Medications Medication Instructions Recorded Confirmed Type lorazepam 0.5 mg tablet 0.5 mg PO DAILY PRN Anxiety 04/14/21 08/05/23 History metoprolol succinate 25 mg 25 mg PO BID 04/14/21 08/05/23 History tablet,extended release 24 hr acetaminophen 500 mg tablet 1,000 mg PO Q6H PRN Back Pain 04/27/21 08/05/23 History (Tylenol Extra Strength) ergocalciferol (vitamin D2) 1,250 50,000 unit PO Q30D 05/13/23 08/05/23 History mcg (50,000 unit) capsule furosemide 20 mg tablet 20 - 40 mg PO DAILY PRN Fluid 05/13/23 08/05/23 History Retention linaclotide 72 mcg capsule 72 mcg PO QAM 05/13/23 08/05/23 History (Linzess) losartan 100 mg tablet 100 mg PO QAM 05/13/23 08/05/23 History amlodipine 10 mg tablet 10 mg PO DAILY 08/05/23 08/05/23 History Past Med/Surg History Medical History Hx of cardiac murmur has had since age 3, "it comes and goes"; f/u dr. 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"; F/U DR PATEL Surgical History History of left cataract extraction History of dilatation and curettage History of esophagogastroduodenoscopy (EGD) History of breast biopsy RIGHT BENIGN History of hysterectomy History of appendectomy History of tonsillectomy H/O colonoscopy Family History Other No known health problems Social History Smoking Status: Never smoker Second Hand Exposure: No; Do You Dip or Chew Tobacco: No; Hx Alcohol Use: No Hx Substance Use: Yes (medical marijuana) Last Used Substance Other:: none for over 1 year Substance Use Type Other:: MEDICAL MARIJUANA CARD Preferred Language: Burmese Communication Ability: Effective Transit Planning Manager Required: No Beliefs That Will Affect Care: None Current Living Situation: Spouse current occupational status: retired Feels Safe at Home: Yes Assistive Devices: Brace/Splint/Immobilizer, Cane and Glasses Physical Exam Physical Exam: Physical Exam: General: In no acute distress, stated age, well-nourished, non-toxic hilario earing HEENT: Normocephalic, atraumatic, no scleral icterus, pupils around round, symmetrical, and reactive to light, dry mucus membranes, trachea midline, no thyromegaly Chest/Pulm: No respiratory distress, symmetrical chest expansion, clear breath sounds throughout Cardiac: RRR, no murmurs noted Abdomen: Chronic abdominal distention, hyperactive bowel sounds, soft, tender to palpation in the epigastric region/RUQ/Right flank without rebound tenderness, otherwise non-tender Musculoskeletal: Knee brace located on the Right knee for chronic nerve damage, no acute trauma on inspection and palpation of the chest, BL upper and lower extremities, thoracic, and lumbar spine Extremities: Radial, dorsalis pedis, and posterior tibial pulses are intact and symmetrical, no edema noted in the BL LE's Skin: No signs of rash or bruising on inspection of the abdomen, right chest, and right flank/back Neuro: Alert and oriented to person, place, month, year, and president, no focal defects, CN II-XII tested and intact, no tremors noted Psych: No acute distress but mild distress due to pain, calm and cooperative during the exam Results & Data Results & Data Vital Signs (Past 12 Hours) Vital Signs Temp Pulse Resp BP Pulse Ox O2 Del Method 08/05/23 08:24 36.8 C 65 18 211/95 H 100 Room Air Laboratory Results Abnormal lab results 08/05/23 08/05/23 Range/Units 09:45 Unknown Neut # (Auto) 6.85 H (1.40-6.50) K/uL [place] # (Auto) 0.85 H (0.11-0.59) K/uL ESR 50 H (0-30) mm/hr Glucose 100 H (70-99(Fasting)) mg/dl Triglycerides 250 H (0-150) mg/dl Lipase 487 H (11-82) U/L Urine pH 8.0 H (4.5-7.5) Diagnostic Findings Abdomen/Pelvis CT 08/05/23 10:[address] WITHOUT CONTRAST CT DOSE: 584.53 mGy.cm HISTORY: rt flank pain TECHNIQUE: Multiaxial CT images of the abdomen and pelvis were performed without contrast. A dose lowering technique was utilized adhering to the principles of ALARA. COMPARISON STUDY: Abdomen and pelvis CT 04/27/2021. FINDINGS: Mild dependent changes again noted within the lung bases. No pneumoperitoneum. No pneumatosis. Degenerative changes within the lower lumbar spine and mild levoscoliosis. No acute fractures identified. Stable 12 mm cyst within the liver. There is sludge layering within the gallbladder. No gallbladder wall thickening. Mild dilatation of the main pancreatic duct which is new compared to the prior study. This measures up to 4.5 mm in diameter. The unenhanced spleen and adrenal glands unremarkable. Moderate cortical scarring within the right kidney, unchanged. Normal left kidney. No renal or ureteral stones. No hydronephrosis. Moderate calcified plaque within the normal caliber abdominal aorta. No retroperitoneal or pelvic lymphadenopathy. No pelvic free fluid. Normal bladder. Prior hysterectomy. Suboptimal evaluation for bowel pa thology due to the lack of intravenous and oral contrast. However, there is no definite bowel wall thickening or obstruction. Colonic diverticulosis. No evidence for acute diverticulitis. Submucosal fat deposition again noted within the ascending colon and transverse colon which is likely chronic. The appendix is surgically absent. IMPRESSION: 1. No renal or ureteral stones. No hydronephrosis. 2. No bowel wall thickening or obstruction. 3. Colonic diverticulosis. No evidence for acute diverticulitis. 4. There is sludge within the gallbladder, unchanged. No gallbladder wall thickening. 5. Mild dilatation of main pancreatic duct which has progressed in the interval. This measures up to 4.5 mm in diameter. Follow-up GI consultation recommended for further evaluation. ACT 112: Positive. There are findings on this exam that require communication between the performing entity and the patient following Patient Test Result Information Act ([place] Act 112) guidelines. Electronically signed by: Mukesh Nicholson M.D. 08/05/2023 12:56 PM ECG Additional Comments: Obtaining at the time of the admission Code Status & VTE Plan Code Status Full code VTE Prophylaxis Plan VTE Prophylaxis will be ordered: Yes Supervising Physician Co-Signing Physician Notes Patient seen and examined, chart reviewed, case discussed with Harjit Madrigal PA-C and I agree with the assessment and plan as above except as otherwise noted Labs and images reviewed 77-year-old female presents with abdominal pain and is found to have pancreatic duct dilation progressive from prior and gallbladder sludge. NPO. Fluid resuscitation given, and IV FM continued at 100 cc/h. GI consulted for ERCP, MRCP is pending. Gallbladder is with sludge and no obvious stones, surgical consultation deferred pending evaluation of MRCP/ERCP results. Lipase is elevated without transaminitis. Hemodynamically stable. No anginal symptoms/ shortness of breath. Pain is reproducible on palpation. Agree with assessment and management above PG Care Time/CCT Total # of Minutes Spent Total Time Spent with Patient: Total time spent is greater than 50% in coordination of care (as documented) at patient's floor/unit and/or counseling patient: Coding [place] [address] INT INP/OBS CARE 2/55MIN Patient Type Established Medical Decision Making Moderate Complexity Diagnoses Abdominal pain R10.9 Acute pancreatitis K85.90 Hypertension I10 GERD without esophagitis K21.9 Chronic kidney disease, stage III (moderate) N18.30
[2023-08-05 14:35] LABS: C Reactive Protein < 0.50 mg/dl (0-0.5); Triglycerides 250 mg/dl (0-150)
--- NOTE | 2023-08-05 15:22 | XRay Report ---
SINGLE VIEW CHEST CLINICAL HISTORY: Right sided chest/upper abdominal pain. FINDINGS: An AP, portable, upright chest radiograph is obtained. No prior studies are available for c omparison at the time of dictation. The heart is enlarged. The pulmonary vasculature is noncongested. Nonspecific interstitial thickening is likely chronic. There is mild bibasilar scarring/atelectasis. The lungs and pleural spaces are otherwise clear. No pneumothorax is seen. The skeletal structures a re osteopenic. The bony thorax is grossly intact. IMPRESSION: Mild cardiomegaly with no active disease in the chest. ACT 112: Negative or not required by law. Electronically signed by: Yang Wolfe M.D. 08/05/2023 3:21 PM
--- NOTE | 2023-08-05 15:28 | Electrocardiogram Report ---
Test Reason : Blood Pressure : / mmHG Vent. Rate : 064 BPM Atrial Rate : 064 BPM P-R Int : 166 ms QRS Dur : 070 ms QT Int : 426 ms P-R-T Axes : 000 017 111 degrees QTc Int : 439 ms Sinus rhythm with Premature supraventricular complexes Cannot rule out Old Anterior infarct Chronic T-wave inversion in Lateral leads Abnormal ECG When compared with ECG of 10-SEP-2016 13:06, Premature supraventricular complexes are now Present IL interval has decreased Minimal criteria for Inferior infarct are no longer Present Borderline Criteria for Anterior infarct now present Confirmed by Reilly Gilliland ([id number]) on 08/05/2023 3:28:38 PM Referred By: REFERRED SELF Confirmed By:Reilly Gilliland
[2023-08-05 15:42] LABS: Prothrombin Time 10.5 Seconds (9.0-12.0)
--- NOTE | 2023-08-05 16:59 | Magnetic Resonance Report ---
MR MRCP HISTORY: Concern for gallstone pancreatitis TECHNIQUE: MRCP the abdomen was performed without contrast according to standard department protocol. COMPARISON STUDY: Abdomen and pelvis CT 08/05/2023. FINDINGS: Suboptimal evaluation due to the motion artifact. Levoscoliosis and degenerative changes ag ain noted within the lumbar spine. The lung bases appear clear. Stable 11 mm cyst within the liver. T he visualized spleen and adrenal glands are unremarkable. There are few left peripelvic renal cysts. Right greater than left cortical renal scarring again noted. No retroperitoneal lymphadenopathy. Norm al caliber abdominal aorta. The visualized loops of bowel show no wall thickening or obstruction. The common bile is is not well assessed due to the motion artifact but appears to be normal in caliber m easuring 3 mm in diameter. No definite filling defects within the common bile duct. No intrahepatic b ile duct dilatation. No definite gallstones. Probable sludge within the gallbladder. No peripancreati c edema to suggest acute pancreatitis at this time. The main portal vein appears patent. There is con firmation of the dilated main pancreatic duct measuring up to 4.6 mm in diameter. There is focal sten osis within the distal main pancreatic duct at the pancreatic neck which is suboptimally assessed due to motion artifact but likely accounts for the dilated duct. This favors a stricture. An occult obst ructing pancreatic lesion also remains in the differential diagnosis. No pancreatic atrophy identifie d. IMPRESSION: 1. There is confirmation of the dilated main pancreatic duct measuring up to 4.6 mm in diameter. Ther e is focal stenosis within the distal main pancreatic duct at the pancreatic neck which is suboptimal ly assessed due to motion artifact but likely accounts for the dilated duct. This favors a stricture. An occult obstructing pancreatic lesion also remains in the differential diagnosis. Therefore, follo w-up GI consultation recommended. 2. No definite gallstones. Probable sludge within the gallbladder. 3. The common bile duct is normal in caliber. 4. Additional findings as described above. ACT 112: Positive. There are findings on this exam that require communication between the performing entity and the patient following Patient Test Result Information Act ([place] Act 112) guidelines. Electronically signed by: Mukesh Nicholson M.D. 08/05/2023 4:57 PM
[2023-08-05] MEDS: MoRPHine SULFATE 2 MG/ML CARP IV PRN (18:01)
[2023-08-05] MEDS: LABETALOL HCL IV 5 MG/ML 20ML IV PRN (18:02)
[2023-08-05] MEDS: LACTATED RINGER'S 1,000 ML IV SCH (18:41)
[2023-08-06] MEDS ORDERED: FAMOTIDINE 20 MG in SYRINGE 3 ML IV ONE (00:30)
[2023-08-06] MEDS: CALCIUM CARBONATE 500 MG CHEWABLE TAB PO PRN (00:44)
[2023-08-06] MEDS: MoRPHine SULFATE 2 MG/ML CARP IV PRN ×4 (00:46→23:54)
[2023-08-06] MEDS: LACTATED RINGER'S 1,000 ML IV SCH ×2 (00:50→10:43)
[2023-08-06] MEDS: LABETALOL HCL IV 5 MG/ML 20ML IV PRN ×2 (03:29→15:10)
[2023-08-06 07:09] LABS: Prothrombin Time 10.9 Seconds (9.0-12.0)
[2023-08-06 07:15] LABS: Albumin Globulin Ratio 1.3 (0.9-2); Albumin Level 3.5 gm/dl (3.4-5.0); BUN Creatinine Ratio 13.1 (10-20); Bilirubin,Total 0.5 mg/dl (0.2-1.0); Calcium 9.1 mg/dl (8.6-10.3); Creatinine Clr Calc Pharmacy 39.8 ml/min; Est GFR (African American) 62.8 ml/min; Est GFR (Non-African American) 54.2 ml/min; Globulin 2.6 gm/dl (2.5-4.0); Magnesium 1.8 mg/dl (1.7-2.4); Potassium 3.7 mmol/L (3.5-5.1); Total Protein 6.1 gm/dl (6.0-8.3)
[2023-08-06 07:21] LABS: Basophils # (auto) 0.02 K/uL (0.00-0.20); Basophils % (auto) 0.3 %; Eosinophils # (auto) 0.02 K/uL (0.00-0.50); Eosinophils % (auto) 0.3 %; Hematocrit (blood only) 33.3 % (37.0-47.0); Hemoglobin 10.8 g/dl (12.0-16.0); Immature Granulocytes # (auto) 0.02 K/uL (0.01-0.20); Immature Granulocytes % (auto) 0.3 %; Lymphocytes % (auto) 24.6 %; Mean Corpuscular Hemoglobin 28.8 pg (25.0-34.0); Mean Corpuscular Hgb Conc 32.4 g/dL (32.0-36.0); Mean Corpuscular Volume 88.8 fL (80.0-100.0); Mean Platelet Volume 10.1 fL (9.4-12.4); Monocytes # (auto) 0.64 K/uL (0.11-0.59); Monocytes % (auto) 8.7 %; Neutrophils # (auto) 4.83 K/uL (1.40-6.50); Neutrophils % (auto) 65.8 %; Platelet Count 235 K/uL (130-400); RDW Coefficient of Variation 13.2 % (11.5-14.5); RDW Standard Deviation 43.3 fL (36.4-46.3); Red Blood Count 3.75 M/uL (4.20-5.40); White Blood Count 7.33 K/ul (4.8-10.8)
--- NOTE | 2023-08-06 09:42 | Gastrointestinal Consultation ---
Date of Consultation August 06, 2023 Assessment & Plan (1) Pancreatitis: (2) Dilated pancreatic duct: Plan Patient is a 77 year old female admitted with new onset abdominal pain. Imaging suggestive of dilated pancreatic duct as well as stenosis. Overall, she feels pain medications are controlling pain and she does feel somewhat improved since admission. Discussed case with Dr. Wilkins, as well as Aida Menard NP and Dr. Doss of the [facility] GI team. -[facility] is going to coordinate an outpatient EUS for the patient due to findings on imaging. -For now, continue with medications for pain control and IV fluids. - Continue with pantoprazole 40mg IV once daily. Supervising Physician Co-Signing Physician Notes I saw the patient and agree with the findings as documented by KIRTI Weldon History of Present Illness Reason for Consultation: Acute pancreatitis, will likely need ERCP Requesting Physician: Harjit Madrigal PA-C Attending Physician: Angelika Saha MD History of Present Illness Patient is a 77 year old female with a past medical history significant for HTN, stage III CKD, anemia, fibromyalgia, slow transit constipation, and GERD who presented to the [facility] ED on 08/05/23 with complaints of 8/10 right sided flank/abdominal pain which developed suddenly 2 days prior to admission and gradually had gotten worse. Labs were significant for a lipase of 487. CT of the abd/pelvis was read as "1. No renal or ureteral stones. No hydronephrosis. 2. No bowel wall thickening or obstruction. 3. Colonic diverticulosis. No evidence for acute diverticulitis. 4. There is sludge within the gallbladder, unchanged. No gallbladder wall thickening. 5. Mild dilatation of main pancreatic duct which has progressed in the interval. This measures up to 4.5 mm in diameter. Follow- up GI consultation recommended for further evaluation. ". She also underwent a MRCP showing dilation of pancreatic duct of 4.6mm with focal stenosis in distal main duct favoring a stricture. she tells me she does have some baseline constipation, but this is controlled as an outpatient with linzess 72mcg as needed. she admits she uses the linzess every other day due to cost of the medication. She also admits to some rare heartburn as outpatient, but has had some since inpatient. she recently was started on protonix 40mg IV once daily. She tells me that since admission, her pain is controlled with pain medications though still present. she overall feels somewhat improved since admission. she denies any nausea, vomiting, dysphagia, unintentional weight loss, change in bowels, melena, or bright red blood per rectum. Allergies Allergy/AdvReac Type Severity Reaction Status Date / Time atropine [From ] Allergy Intermediate Hives Verified 08/05/23 16:36 cimetidine [From Tagamet] Allergy Intermediate Hives Verified 08/05/23 16:36 hyoscyamine [From ] Allergy Intermediate Hives Verified 08/05/23 16:36 Iodinated Contrast Media Allergy Intermediate Hives Verified 08/05/23 16:36 [Iodinated Contrast- Oral and IV Dye] nitrofurantoin Allergy Intermediate Rash Verified 08/05/23 16:36 [From Macrobid] phenobarbital [From ] Allergy Intermediate Hives Verified 08/05/23 16:36 regadenoson Allergy Intermediate loss of Verified 08/05/23 16:36 vision, low Blood pressure scopolamine [From ] Allergy Intermediate Hives Verified 08/05/23 16:36 ketoprofen [From Orudis] Allergy Mild Rash Verified 08/05/23 16:36 duloxetine [From Cymbalta] AdvReac Intermediate Swelling Verified 08/05/23 16:36 diltiazem AdvReac Mild Hallucinati Verified 08/05/23 16:36 ng doxepin AdvReac Mild Hallucinati Verified 08/05/23 16:36 ng doxycycline AdvReac Mild Heartburn Verified 08/05/23 16:36 hydrocodone AdvReac Mild Dizziness Verified 08/05/23 16:36 lisinopril [From Zestril] AdvReac Mild Swelling Verified 08/05/23 16:36 pantoprazole [From Protonix] AdvReac Mild Dizziness Verified 08/05/23 16:36 Home Medications Medication Instructions Recorded Confirmed Type lorazepam 0.5 mg tablet 0.5 mg PO DAILY PRN Anxiety 04/14/21 08/05/23 History metoprolol succinate 25 mg 25 mg PO BID 04/14/21 08/05/23 History tablet,extended release 24 hr acetaminophen 500 mg tablet 1,000 mg PO Q6H PRN Back Pain 04/27/21 08/05/23 History (Tylenol Extra Strength) ergocalciferol (vitamin D2) 1,250 50,000 unit PO Q30D 05/13/23 08/05/23 History mcg (50,000 unit) capsule furosemide 20 mg tablet 20 - 40 mg PO DAILY PRN Fluid 05/13/23 08/05/23 History Retention linaclotide 72 mcg capsule 72 mcg PO QAM 05/13/23 08/05/23 History (Linzess) losartan 100 mg tablet 100 mg PO QAM 05/13/23 08/05/23 History amlodipine 10 mg tablet 10 mg PO DAILY 08/05/23 08/05/23 History Patient History Medical History Hx of cardiac murmur has had since age 3, "it comes and goes"; f/u dr. 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"; F/U DR PATEL Surgical History History of left cataract extraction History of dilatation and curettage History of esophagogastroduodenoscopy (EGD) History of breast biopsy RIGHT BENIGN History of hysterectomy History of appendectomy History of tonsillectomy H/O colonoscopy Family History Other No known health problems Social History Smoking Status: Never smoker Second Hand Exposure: No; Do You Dip or Chew Tobacco: No; Hx Alcohol Use: No Hx Substance Use: No Preferred Language: Turkmen Communication Ability: Effective Material Liaison Required: No Beliefs That Will Affect Care: None Current Living Situation: Spouse current occupational status: retired Feels Safe at Home: Yes Assistive Devices: Brace/Splint/Immobilizer, Cane and Walker Review of Systems Review of Systems: All systems reviewed & are unremarkable except as noted in HPI & below Physical Exam Constitutional: WD/WN, vitals as above Respiratory: normal respiratory effort, lungs clear to auscultation Cardiovascular: RRR, no murmur, no edema Gastrointestinal (Abdomen): mild RUQ tenderness, no guarding, soft, normal bowel sounds. Skin: no rashes, warm and dry Psychiatric: Orientation: alert and oriented x 3 Affect: euthymic affect Results & Data Vital Signs (Past 12 Hours) Vital Signs Temp Pulse Pulse Resp BP BP BP 08/06/23 08:01 61 08/06/23 07:32 98.6 F 62 17 175/72 H 08/06/23 04:00 99.0 F 66 18 200/101 H 08/06/23 03:48 150/71 H 08/06/23 03:44 61 150/71 H 08/06/23 03:29 61 188/69 H 08/06/23 03:27 61 182/72 H 188/69 H 08/06/23 03:17 98.1 F 66 18 200/101 H 08/05/23 23:12 63 08/05/23 23:07 98.1 F 62 18 167/78 H Pulse Ox O2 Del Method 08/06/23 08:01 08/06/23 07:32 97 Room Air 08/06/23 04:00 96 Room Air 08/06/23 03:48 08/06/23 03:44 08/06/23 03:29 08/06/23 03:27 08/06/23 03:17 96 Room Air 08/05/23 23:12 08/05/23 23:07 95 Room Air Coding Level of Care Code 07823 INT INP/OBS CARE 2/55MIN Diagnoses Pancreatitis K85.90 Acute pancreatitis complication: unspecified Chronicity: acute Pancreatitis type: unspecified pancreatitis type Dilated pancreatic duct K86.89 Time Spent (min) 55 Comment (1) Pancreatitis Acute pancreatitis complication: unspecified Chronicity: acute Pancreatitis type: unspecified pancreatitis type Qualified Code(s): K85.90 - Acute pancreatitis without necrosis or infection, unspecified
[2023-08-06] MEDS: PANTOprazole 40 MG in SYRINGE 0 ML IV SCH (10:43)
[2023-08-06] MEDS ORDERED: PANTOprazole 40 MG in SYRINGE 0 ML IV SCH (11:00)
[2023-08-06] MEDS: ACETAMINOPHEN 1,000 MG/100 ML VIAL IV PRN (12:09)
[2023-08-06] MEDS: LORazepam 0.5 MG TAB PO PRN ×2 (16:06→21:10)
[2023-08-06] MEDS ORDERED: hydrALAZINE HCL 20 MG/ML VIAL IV ONE (16:53)
[2023-08-06] MEDS ORDERED: hydrALAZINE HCL 20 MG/ML VIAL IV PRN (16:53)
--- NOTE | 2023-08-06 16:53 | Hospitalist Progress Note ---
Date of Service August 06, 2023 Assessment & Plan (1) Abdominal pain: Plan: Secondary to acute pancreatitis MRCP confirms pancreatic ductal dilatation with concern for stenosis of the pancreatic duct Patient will eventually need an EUS/ERCP GI plans to do endoscopy procedures outpatient after this acute pancreatitis is resolved Will treat conservatively with bowel rest, analgesics, antiemetics, IV fluids N.p.o. (2) Acute pancreatitis: Plan: -See abdominal pain (3) Hypertension: Plan: Patient is noted to be quite hypertensive Ordered IV hydralazine every 8 as needed Oral medications including amlodipine, metoprolol and losartan on hold Ordered IV enalapril every 8 (4) GERD without esophagitis: Plan: -Will start 40 mg IV pantoprazole daily while NPO (5) Chronic kidney disease, stage III (moderate): Plan: -Stable Admission and Anticipated Discharge Date Admission Date: August 05, 2023 Subjective Patient feels better overall. Her belly pain is improving. Denies chest pain or shortness of breath. Review of Systems Review of Systems: All systems reviewed & are unremarkable except as noted in Subjective Physical Exam Physical Exam: General: Awake, conversant Heart: S1, S2/regular rate and rhythm, no murmur rubs or gallops Lungs: Clear to auscultation bilaterally. Normal effort Abdomen: Soft/nontender/nondistended. No hepatosplenomegaly Extremities: No clubbing/cyanosis. No edema Behavior: Appropriate, cooperative Results & Data Results & Data Vital Signs (Past 12 Hours) Vital Signs Temp Pulse Pulse Resp BP BP BP 08/06/23 15:49 65 194/71 H 08/06/23 15:42 62 08/06/23 15:10 73 212/82 H 08/06/23 15:06 36.9 C 73 18 212/82 H 08/06/23 11:32 36.7 C 63 18 189/74 H 08/06/23 08:01 61 08/06/23 07:32 37.0 C 62 17 175/72 H Pulse Ox O2 Del Method 08/06/23 15:49 08/06/23 15:42 08/06/23 15:10 08/06/23 15:06 99 Room Air 08/06/23 11:32 99 Room Air 08/06/23 08:01 08/06/23 07:32 97 Room Air Laboratory Results Abnormal lab results 08/06/23 Range/Units 06:21 RBC 3.75 L (4.20-5.40) M/uL Hgb 10.8 L (12.0-16.0) g/dl Hct 33.3 L (37.0-47.0) % [place] # (Auto) 0.64 H (0.11-0.59) K/uL Glucose 106 H (70-99(Fasting)) mg/dl AST 12 L (13-39) U/L Diagnostic Findings Cholangiopancreatography MRI 08/05/23 14:46 MR MRCP HISTORY: Concern for gallstone pancreatitis TECHNIQUE: MRCP the abdomen was performed without contrast according to standard department protocol. COMPARISON STUDY: Abdomen and pelvis CT 08/05/2023. FINDINGS: Suboptimal evaluation due to the motion artifact. Levoscoliosis and degenerative changes again noted within the lumbar spine. The lung bases appear clear. Stable 11 mm cyst within the liver. The visualized spleen and adrenal glands are unremarkable. There are few left peripelvic renal cysts. Right greater than left cortical renal scarring again noted. No retroperitoneal lymphadenopathy. Normal caliber abdominal aorta. The visualized loops of bowel show no wall thickening or obstruction. The common bile is is not well assessed due to the motion artifact but appears to be normal in caliber measuring 3 mm in diameter. No definite filling defects within the common bile duct. No intrahepatic bile duct dilatation. No definite gallstones. Probable sludge within the gallbladder. No peripancreatic edema to suggest acute pancreatitis at this time. The main portal vein appears patent. There is confirmation of the dilated main pancreatic duct measuring up to 4.6 mm in diameter. There is focal stenosis within the distal main pancreatic duct at the pancreatic neck which is suboptimally assessed due to motion artifact but likely accounts for the dilated duct. This favors a stricture. An occult obstructing pancreatic lesion also remains in the differential diagnosis. No pancreatic atrophy identified. IMPRESSION: 1. There is confirmation of the dilated main pancreatic duct measuring up to 4.6 mm in diameter. There is focal stenosis within the distal main pancreatic duct at the pancreatic neck which is suboptimally assessed due to motion artifact but likely accounts for the dilated duct. This favors a stricture. An occult obstructing pancreatic lesion also remains in the differential diagnosis. Therefore, follow-up GI consultation recommended. 2. No definite gallstones. Probable sludge within the gallbladder. 3. The common bile duct is normal in caliber. 4. Additional findings as described above. ACT 112: Positive. There are findings on this exam that require communication between the performing entity and the patient following Patient Test Result Information Act ([place] Act 112) guidelines. Electronically signed by: Mukesh Nicholson M.D. 08/05/2023 4:57 PM PG Care Time/CCT Total # of Minutes Spent Total Time Spent with Patient: Total time spent is greater than 50% in coordination of care (as documented) at patient's floor/unit and/or counseling patient: Coding Level of Care Code 34530 SUB INP/OBS CARE 2/35MIN Diagnoses Abdominal pain R10.30 Abdominal location: lower abdomen, unspecified Acute pancreatitis K85.90 Hypertension I10 GERD without esophagitis K21.9 Chronic kidney disease, stage III (moderate) N18.30 Chronic kidney disease stage 3 subtype: unspecified whether 3a or 3b (1) Abdominal pain Abdominal location: lower abdomen, unspecified Qualified Code(s): R10.30 - Lower abdominal pain, unspecified (5) Chronic kidney disease, stage III (moderate) Chronic kidney disease stage 3 subtype: unspecified whether 3a or 3b Qualified Code(s): N18.30 - Chronic kidney disease, stage 3 unspecified
[2023-08-06] MEDS ORDERED: ENALAPRILAT 1.25 MG in DEXTROSE 5% 25 ML IV SCH (22:00)
[2023-08-07] MEDS: LABETALOL HCL IV 5 MG/ML 20ML IV PRN (03:22)
[2023-08-07] MEDS: MoRPHine SULFATE 2 MG/ML CARP IV PRN ×4 (03:47→19:59)
[2023-08-07 06:40] LABS: Basophils # (auto) 0.04 K/uL (0.00-0.20); Basophils % (auto) 0.7 %; Eosinophils # (auto) 0.04 K/uL (0.00-0.50); Eosinophils % (auto) 0.7 %; Hematocrit (blood only) 34.4 % (37.0-47.0); Hemoglobin 11.2 g/dl (12.0-16.0); Immature Granulocytes # (auto) 0.02 K/uL (0.01-0.20); Immature Granulocytes % (auto) 0.3 %; Lymphocytes # (auto) 1.57 K/uL (1.20-3.40); Lymphocytes % (auto) 26.6 %; Mean Corpuscular Hgb Conc 32.6 g/dL (32.0-36.0); Mean Corpuscular Volume 89.1 fL (80.0-100.0); Mean Platelet Volume 9.6 fL (9.4-12.4); Monocytes # (auto) 0.48 K/uL (0.11-0.59); Monocytes % (auto) 8.1 %; Neutrophils # (auto) 3.75 K/uL (1.40-6.50); Neutrophils % (auto) 63.6 %; Platelet Count 233 K/uL (130-400); RDW Coefficient of Variation 13.2 % (11.5-14.5); Red Blood Count 3.86 M/uL (4.20-5.40)
[2023-08-07] MEDS: ACETAMINOPHEN 1,000 MG/100 ML VIAL IV PRN (06:47)
[2023-08-07 07:12] LABS: Albumin Globulin Ratio 1.3 (0.9-2); Albumin Level 3.6 gm/dl (3.4-5.0); BUN Creatinine Ratio 14.3 (10-20); Bilirubin,Total 0.4 mg/dl (0.2-1.0); Calcium 9.1 mg/dl (8.6-10.3); Creatinine Clr Calc Pharmacy 43.3 ml/min; Est GFR (African American) 69.5 ml/min; Globulin 2.7 gm/dl (2.5-4.0); Magnesium 1.9 mg/dl (1.7-2.4); Potassium 3.8 mmol/L (3.5-5.1); Total Protein 6.3 gm/dl (6.0-8.3)
[2023-08-07 07:14] LABS: Prothrombin Time 10.9 Seconds (9.0-12.0)
[2023-08-07] MEDS: SODIUM CHLORIDE 0.9% 1,000 ML IV SCH ×2 (09:36→19:59)
[2023-08-07] MEDS: PANTOprazole 40 MG in SYRINGE 0 ML IV SCH (11:55)
[2023-08-07] MEDS ORDERED: METOPROLOL TARTRATE 1 MG/ML VIAL IV SCH (12:00)
[2023-08-07] MEDS: hydrALAZINE HCL 20 MG/ML VIAL IV PRN (14:00)
--- NOTE | 2023-08-07 16:45 | Hospitalist Progress Note ---
Date of Service August 07, 2023 Assessment & Plan (1) Abdominal pain: Plan: Secondary to acute pancreatitis MRCP confirms pancreatic ductal dilatation with concern for stenosis of the pancreatic duct Patient will eventually need an EUS/ERCP GI plans to do endoscopy procedures outpatient after this acute pancreatitis is resolved Will treat conservatively with bowel rest, analgesics, antiemetics, IV fluids N.p.o. (2) Acute pancreatitis: Plan: -See abdominal pain (3) Hypertension: Plan: Patient is noted to be quite hypertensive Ordered IV hydralazine every 8 as needed Oral medications including amlodipine, metoprolol and losartan on hold Enalapril discontinued because of a history of swelling with GLENNA inhibitor's Ordered IV metoprolol every 4 hours (4) GERD without esophagitis: Plan: -Patient says that Protonix makes her dizzy. Discontinue (5) Chronic kidney disease, stage III (moderate): Plan: -Stable Admission and Anticipated Discharge Date Admission Date: August 05, 2023 Subjective Patient still is complaining of right upper quadrant and flank pain. She has been requiring IV morphine quite frequently. Review of Systems Review of Systems: All systems reviewed & are unremarkable except as noted in Subjective Physical Exam Physical Exam: General: Awake, conversant Heart: S1, S2/regular rate and rhythm, no murmur rubs or gallops Lungs: Clear to auscultation bilaterally. Normal effort Abdomen: Soft/nondistended. Tenderness to palpation in the right upper quadrant. No rebound, rigidity or guarding. No hepatosplenomegaly Extremities: No clubbing/cyanosis. No edema Behavior: Appropriate, cooperative Results & Data Results & Data Vital Signs (Past 12 Hours) Vital Signs Temp Pulse Pulse Resp BP BP Pulse Ox 08/07/23 15:42 36.7 C 79 18 184/72 H 98 08/07/23 12:09 67 177/80 H 08/07/23 11:54 70 186/70 H 08/07/23 11:10 37.1 C 67 16 186/68 H 97 08/07/23 07:18 36.8 C 66 16 182/77 H 98 O2 Del Method 08/07/23 15:42 Room Air 08/07/23 12:09 08/07/23 11:54 08/07/23 11:10 Room Air 08/07/23 07:18 Room Air Laboratory Results Abnormal lab results 01/10/24 Range/Units 06:16 RBC 3.86 L (4.20-5.40) M/uL Hgb 11.2 L (12.0-16.0) g/dl Hct 34.4 L (37.0-47.0) % [place] 108 H (98-107) mmol/L AST 12 L (13-39) U/L PG Care Time/CCT Total # of Minutes Spent Total Time Spent with Patient: Total time spent is greater than 50% in coordination of care (as documented) at patient's floor/unit and/or counseling patient: Coding Level of Care Code 31168 SUB INP/OBS CARE 2/35MIN Diagnoses Abdominal pain R10.30 Abdominal location: lower abdomen, unspecified Acute pancreatitis K85.90 Hypertension I10 GERD without esophagitis K21.9 Chronic kidney disease, stage III (moderate) N18.30 Chronic kidney disease stage 3 subtype: unspecified whether 3a or 3b (1) Abdominal pain Abdominal location: lower abdomen, unspecified Qualified Code(s): R10.30 - Lower abdominal pain, unspecified (5) Chronic kidney disease, stage III (moderate) Chronic kidney disease stage 3 subtype: unspecified whether 3a or 3b Qualified Code(s): N18.30 - Chronic kidney disease, stage 3 unspecified
[2023-08-07] MEDS: METOPROLOL TARTRATE 1 MG/ML VIAL IV SCH (20:04)
[2023-08-08] MEDS: METOPROLOL TARTRATE 1 MG/ML VIAL IV SCH ×6 (00:18→20:23)
[2023-08-08] MEDS: MoRPHine SULFATE 2 MG/ML CARP IV PRN ×3 (00:30→10:04)
[2023-08-08] MEDS: hydrALAZINE HCL 20 MG/ML VIAL IV PRN ×2 (04:49→18:12)
[2023-08-08] MEDS: SODIUM CHLORIDE 0.9% 1,000 ML IV SCH (06:09)
[2023-08-08] MEDS ORDERED: MoRPHine SULFATE 2 MG/ML CARP IV STA (06:17)
[2023-08-08 06:31] LABS: Basophils # (auto) 0.04 K/uL (0.00-0.20); Basophils % (auto) 0.5 %; Eosinophils # (auto) 0.11 K/uL (0.00-0.50); Eosinophils % (auto) 1.3 %; Hematocrit (blood only) 37.1 % (37.0-47.0); Hemoglobin 11.9 g/dl (12.0-16.0); Immature Granulocytes # (auto) 0.05 K/uL (0.01-0.20); Immature Granulocytes % (auto) 0.6 %; Lymphocytes # (auto) 2.08 K/uL (1.20-3.40); Mean Corpuscular Hemoglobin 29.2 pg (25.0-34.0); Mean Corpuscular Hgb Conc 32.1 g/dL (32.0-36.0); Mean Corpuscular Volume 91.2 fL (80.0-100.0); Mean Platelet Volume 9.8 fL (9.4-12.4); Monocytes # (auto) 0.75 K/uL (0.11-0.59); Monocytes % (auto) 8.7 %; Neutrophils # (auto) 5.63 K/uL (1.40-6.50); Neutrophils % (auto) 64.9 %; Platelet Count 283 K/uL (130-400); RDW Coefficient of Variation 13.5 % (11.5-14.5); RDW Standard Deviation 44.7 fL (36.4-46.3); Red Blood Count 4.07 M/uL (4.20-5.40); White Blood Count 8.66 K/ul (4.8-10.8)
[2023-08-08 07:00] LABS: Prothrombin Time 11.3 Seconds (9.0-12.0)
[2023-08-08 07:06] LABS: Albumin Globulin Ratio 1.3 (0.9-2); Albumin Level 3.6 gm/dl (3.4-5.0); BUN Creatinine Ratio 16.2 (10-20); Bilirubin,Total 0.5 mg/dl (0.2-1.0); Creatinine Clr Calc Pharmacy 39.8 ml/min; Est GFR (African American) 62.8 ml/min; Est GFR (Non-African American) 54.2 ml/min; Globulin 2.7 gm/dl (2.5-4.0); Magnesium 1.9 mg/dl (1.7-2.4); Potassium 4.3 mmol/L (3.5-5.1); Total Protein 6.3 gm/dl (6.0-8.3)
--- NOTE | 2023-08-08 14:35 | Hospitalist Progress Note ---
Date of Service August 08, 2023 Assessment & Plan (1) Abdominal pain: Plan: Secondary to acute pancreatitis MRCP confirms pancreatic ductal dilatation with concern for stenosis of the pancreatic duct Patient will eventually need an EUS/ERCP GI plans to do endoscopy procedures outpatient after this acute pancreatitis is resolved Will treat conservatively with bowel rest, analgesics, antiemetics, IV fluids N.p.o. Will change IV fluids to include D5 as her blood sugar is dropping slowly Will change from 2 mg of morphine 2.5 mg of Dilaudid to control her pain better. (2) Acute pancreatitis: Plan: -See abdominal pain (3) Hypertension: Plan: Patient is noted to be quite hypertensive Ordered IV hydralazine every 8 as needed Oral medications including amlodipine, metoprolol and losartan on hold Enalapril discontinued because of a history of swelling with GLENNA inhibitor's Ordered IV metoprolol every 4 hours Most likely reduced Will treat her pain more aggressively (4) GERD without esophagitis: Plan: -Patient says that Protonix makes her dizzy. Discontinue (5) Chronic kidney disease, stage III (moderate): Plan: -Stable Admission and Anticipated Discharge Date Admission Date: August 05, 2023 Subjective Patient is still complaining of pain that is causing her blood pressure to go up. She says that the 2 mg of morphine brings her pain down from 9/10 to 6/10 and then the pain level goes up again before she is due for her next dose. No chest pain or shortness of breath. Review of Systems Review of Systems: All systems reviewed & are unremarkable except as noted in Subjective Physical Exam Physical Exam: General: Awake, conversant Heart: S1, S2/regular rate and rhythm, no murmur rubs or gallops Lungs: Clear to auscultation bilaterally. Normal effort Abdomen: Soft/nondistended. Tenderness to palpation in the right upper quadrant. No rebound, rigidity or guarding. No hepatosplenomegaly Extremities: No clubbing/cyanosis. No edema Behavior: Appropriate, cooperative Results & Data Results & Data Vital Signs (Past 12 Hours) Vital Signs Temp Pulse Pulse Resp BP BP Pulse Ox 08/08/23 13:18 70 157/78 H 08/08/23 11:32 36.8 C 74 18 157/78 H 97 08/08/23 08:24 60 170/50 H 08/08/23 08:09 74 171/62 H 08/08/23 07:55 36.8 C 74 16 171/62 H 98 08/08/23 06:07 72 155/66 H 08/08/23 05:29 73 160/64 H 08/08/23 04:55 67 193/71 H 08/08/23 04:45 65 191/67 H 08/08/23 04:30 67 191/70 H 08/08/23 04:15 76 180/67 H 08/08/23 04:13 76 180/67 H 08/08/23 03:00 37.0 C 69 16 164/66 H 94 O2 Del Method 08/08/23 13:18 08/08/23 11:32 Room Air 08/08/23 08:24 08/08/23 08:09 08/08/23 07:55 Room Air 08/08/23 06:07 08/08/23 05:29 08/08/23 04:55 08/08/23 04:45 08/08/23 04:30 08/08/23 04:15 08/08/23 04:13 08/08/23 03:00 Room Air Laboratory Results Abnormal lab results 08/08/23 Range/Units 05:42 RBC 4.07 L (4.20-5.40) M/uL Hgb 11.9 L (12.0-16.0) g/dl [place] # (Auto) 0.75 H (0.11-0.59) K/uL Chlor[place] 108 H (98-107) mmol/L Glucose 66 L (70-99(Fasting)) mg/dl PG Care Time/CCT Total # of Minutes Spent Total Time Spent with Patient: Total time spent is greater than 50% in coordination of care (as documented) at patient's floor/unit and/or counseling patient: Coding Level of Care Code 28491 SUB INP/OBS CARE 2/35MIN Diagnoses Abdominal pain R10.30 Abdominal location: lower abdomen, unspecified Acute pancreatitis K85.90 Hypertension I10 GERD without esophagitis K21.9 Chronic kidney disease, stage III (moderate) N18.30 Chronic kidney disease stage 3 subtype: unspecified whether 3a or 3b (1) Abdominal pain Abdominal location: lower abdomen, unspecified Qualified Code(s): R10.30 - Lower abdominal pain, unspecified (5) Chronic kidney disease, stage III (moderate) Chronic kidney disease stage 3 subtype: unspecified whether 3a or 3b Qualified Code(s): N18.30 - Chronic kidney disease, stage 3 unspecified
[2023-08-08] MEDS: HYDROmorphone INJ 0.5 MG/0.5 ML SYR IV PRN ×2 (14:39→19:45)
[2023-08-08] MEDS: D5W AND NSS 1,000 ML IV SCH ×2 (15:12→23:17)
[2023-08-08] MEDS: LORazepam 0.5 MG TAB PO PRN (19:45)
[2023-08-09] MEDS: METOPROLOL TARTRATE 1 MG/ML VIAL IV SCH ×6 (00:05→20:40)
[2023-08-09] MEDS: HYDROmorphone INJ 0.5 MG/0.5 ML SYR IV PRN ×7 (00:32→20:40)
[2023-08-09] MEDS: D5W AND NSS 1,000 ML IV SCH ×2 (06:21→14:00)
[2023-08-09] MEDS: hydrALAZINE HCL 20 MG/ML VIAL IV PRN (11:48)
--- NOTE | 2023-08-09 14:02 | Hospitalist Progress Note ---
Date of Service August 09, 2023 Assessment & Plan (1) Abdominal pain: Plan: Secondary to acute pancreatitis MRCP confirms pancreatic ductal dilatation with concern for stenosis of the pancreatic duct Patient will eventually need an EUS/ERCP GI plans to do endoscopy procedures outpatient after this acute pancreatitis is resolved Will treat conservatively with bowel rest, analgesics, antiemetics, IV fluids N.p.o. Continue D5 normal saline Continue 0.5 mg of IV Dilaudid but increase the frequency to every 3 hours as needed (2) Acute pancreatitis: Plan: -See abdominal pain (3) Hypertension: Plan: Patient is noted to be quite hypertensive Ordered IV hydralazine every 8 as needed Oral medications including amlodipine, metoprolol and losartan on hold Enalapril discontinued because of a history of swelling with GLENNA inhibitor's Ordered IV metoprolol every 4 hours Most likely pain related Will treat her pain more aggressively (4) GERD without esophagitis: Plan: -Patient says that Protonix makes her dizzy. Discontinue (5) Chronic kidney disease, stage III (moderate): Plan: -Stable Admission and Anticipated Discharge Date Admission Date: August 05, 2023 Subjective Patient was in significant pain this morning with elevated blood pressures. She was given IV Dilaudid with improvement in pain. She tells me that she did not get the IV pain medications as frequently as she had wanted it yesterday. But she stated that the IV Dilaudid was more effective than the morphine for pain control but it did not last long enough for the next dose. Review of Systems Review of Systems: All systems reviewed & are unremarkable except as noted in Subjective Physical Exam Physical Exam: General: Awake, conversant Heart: S1, S2/regular rate and rhythm, no murmur rubs or gallops Lungs: Clear to auscultation bilaterally. Normal effort Abdomen: Soft/nondistended. Tenderness to palpation in the right upper quadrant. No rebound, rigidity or guarding. No hepatosplenomegaly Extremities: No clubbing/cyanosis. No edema Behavior: Appropriate, cooperative Results & Data Results & Data Vital Signs (Past 12 Hours) Vital Signs Temp Pulse Pulse Resp BP BP BP 08/09/23 12:10 36.8 C 64 17 151/62 H 08/09/23 12:07 66 08/09/23 11:55 36.8 C 72 18 205/64 H 08/09/23 11:45 76 08/09/23 09:52 69 173/61 H 08/09/23 09:00 64 08/09/23 08:33 36.7 C 69 18 173/61 H 08/09/23 08:10 36.8 C 79 18 208/74 H 204/77 H 08/09/23 08:07 78 08/09/23 04:35 62 08/09/23 04:20 64 08/09/23 03:57 37.0 C 72 16 185/68 H Pulse Ox O2 Del Method 08/09/23 12:10 97 Room Air 08/09/23 12:07 08/09/23 11:55 99 Room Air 08/09/23 11:45 08/09/23 09:52 08/09/23 09:00 08/09/23 08:33 93 Room Air 08/09/23 08:10 98 Room Air 08/09/23 08:07 08/09/23 04:35 08/09/23 04:20 08/09/23 03:57 97 Room Air PG Care Time/CCT Total # of Minutes Spent Total Time Spent with Patient: Total time spent is greater than 50% in coordination of care (as documented) at patient's floor/unit and/or counseling patient: Coding Level of Care Code 08616 SUB INP/OBS CARE 2/35MIN Diagnoses Abdominal pain R10.30 Abdominal location: lower abdomen, unspecified Acute pancreatitis K85.90 Hypertension I10 GERD without esophagitis K21.9 Chronic kidney disease, stage III (moderate) N18.30 Chronic kidney disease stage 3 subtype: unspecified whether 3a or 3b (1) Abdominal pain Abdominal location: lower abdomen, unspecified Qualified Code(s): R10.30 - Lower abdominal pain, unspecified (5) Chronic kidney disease, stage III (moderate) Chronic kidney disease stage 3 subtype: unspecified whether 3a or 3b Qualified Code(s): N18.30 - Chronic kidney disease, stage 3 unspecified
[2023-08-09] MEDS ORDERED: CALCIUM CARBONATE 500 MG CHEWABLE TAB PO PRN (18:18)
[2023-08-10] MEDS: HYDROmorphone INJ 0.5 MG/0.5 ML SYR IV PRN ×4 (01:13→11:18)
[2023-08-10] MEDS: LORazepam 0.5 MG TAB PO PRN ×3 (01:13→22:50)
[2023-08-10] MEDS: D5W AND NSS 1,000 ML IV SCH ×4 (01:15→20:54)
[2023-08-10] MEDS: METOPROLOL TARTRATE 1 MG/ML VIAL IV SCH ×6 (04:07→19:45)
[2023-08-10 08:00] LABS: Hematocrit (blood only) 30.1 % (37.0-47.0); Hemoglobin 9.7 g/dl (12.0-16.0); Mean Corpuscular Hemoglobin 29.3 pg (25.0-34.0); Mean Corpuscular Hgb Conc 32.2 g/dL (32.0-36.0); Mean Corpuscular Volume 90.9 fL (80.0-100.0); Platelet Count 218 K/uL (130-400); RDW Coefficient of Variation 13.9 % (11.5-14.5); RDW Standard Deviation 45.8 fL (36.4-46.3); Red Blood Count 3.31 M/uL (4.20-5.40); White Blood Count 6.65 K/ul (4.8-10.8)
[2023-08-10] MEDS: CALCIUM CARBONATE 500 MG CHEWABLE TAB PO PRN (09:47)
[2023-08-10] MEDS ORDERED: bisacodyL 10 MG SUPP PR STA (12:14)
[2023-08-10] MEDS: hydrALAZINE HCL 20 MG/ML VIAL IV PRN (12:50)
--- NOTE | 2023-08-10 14:21 | Hospitalist Progress Note ---
Date of Service August 10, 2023 Assessment & Plan (1) Abdominal pain: Plan: Secondary to acute pancreatitis MRCP confirms pancreatic ductal dilatation with concern for stenosis of the pancreatic duct Patient will eventually need an EUS/ERCP GI plans to do endoscopy procedures outpatient after this acute pancreatitis is resolved Will treat conservatively with bowel rest, analgesics, antiemetics, IV fluids N.p.o. Continue D5 normal saline Continue 0.5 mg of IV Dilaudid but increase the frequency to every 3 hours as needed. Added 1 mg of IV Dilaudid every 3 hours as needed for severe pain (2) Acute pancreatitis: Plan: -See abdominal pain (3) Hypertension: Plan: Patient is noted to be quite hypertensive Ordered IV hydralazine every 8 as needed Oral medications including amlodipine, metoprolol and losartan on hold Enalapril discontinued because of a history of swelling with GLENNA inhibitor's Ordered IV metoprolol every 4 hours Most likely pain related Will treat her pain more aggressively (4) GERD without esophagitis: Plan: -Patient says that Protonix makes her dizzy. Discontinue (5) Chronic kidney disease, stage III (moderate): Plan: -Stable Admission and Anticipated Discharge Date Admission Date: August 05, 2023 Subjective Patient feels better today. Says that her pain is better controlled. Dilaudid half a milligram every 3 hours is controlling her pain better. She is still not hungry. Last bowel movement was 7 days ago. Review of Systems Review of Systems: All systems reviewed & are unremarkable except as noted in Subjective Physical Exam Physical Exam: General: Awake, conversant Heart: S1, S2/regular rate and rhythm, no murmur rubs or gallops Lungs: Clear to auscultation bilaterally. Normal effort Abdomen: Soft/nondistended. Tenderness to palpation in the right upper quadrant. No rebound, rigidity or guarding. No hepatosplenomegaly Extremities: No clubbing/cyanosis. No edema Behavior: Appropriate, cooperative Results & Data Results & Data Vital Signs (Past 12 Hours) Vital Signs Temp Pulse Pulse Resp BP BP Pulse Ox 08/10/23 12:36 62 186/72 H 08/10/23 12:12 36.8 C 60 18 97 08/10/23 12:11 62 08/10/23 11:20 77 08/10/23 08:10 65 08/10/23 07:55 78 08/10/23 07:50 36.7 C 63 17 170/71 H 96 08/10/23 07:12 55 L 08/10/23 05:57 68 08/10/23 04:14 36.9 C 73 18 167/62 H 94 O2 Del Method 08/10/23 12:36 08/10/23 12:12 Room Air 08/10/23 12:11 08/10/23 11:20 08/10/23 08:10 08/10/23 07:55 08/10/23 07:50 Room Air 08/10/23 07:12 08/10/23 05:57 08/10/23 04:14 Room Air PG Care Time/CCT Total # of Minutes Spent Total Time Spent with Patient: Total time spent is greater than 50% in coordination of care (as documented) at patient's floor/unit and/or counseling patient: Coding Level of Care Code 19774 SUB INP/OBS CARE 2/35MIN Diagnoses Abdominal pain R10.30 Abdominal location: lower abdomen, unspecified Acute pancreatitis K85.90 Hypertension I10 GERD without esophagitis K21.9 Chronic kidney disease, stage III (moderate) N18.30 Chronic kidney disease stage 3 subtype: unspecified whether 3a or 3b (1) Abdominal pain Abdominal location: lower abdomen, unspecified Qualified Code(s): R10.30 - Lower abdominal pain, unspecified (5) Chronic kidney disease, stage III (moderate) Chronic kidney disease stage 3 subtype: unspecified whether 3a or 3b Qualified Code(s): N18.30 - Chronic kidney disease, stage 3 unspecified
[2023-08-10] MEDS: HYDROmorphone INJ 1 MG/ML SYRINGE IV PRN ×3 (14:54→22:51)
[2023-08-11] MEDS: HYDROmorphone INJ 1 MG/ML SYRINGE IV PRN ×7 (03:59→22:17)
[2023-08-11] MEDS: METOPROLOL TARTRATE 1 MG/ML VIAL IV SCH ×6 (04:00→19:12)
[2023-08-11] MEDS: D5W AND NSS 1,000 ML IV SCH ×3 (05:00→22:17)
[2023-08-11 07:23] LABS: Hematocrit (blood only) 31.1 % (37.0-47.0); Hemoglobin 10.1 g/dl (12.0-16.0); Mean Corpuscular Hemoglobin 29.4 pg (25.0-34.0); Mean Corpuscular Hgb Conc 32.5 g/dL (32.0-36.0); Mean Corpuscular Volume 90.7 fL (80.0-100.0); Mean Platelet Volume 9.9 fL (9.4-12.4); Platelet Count 216 K/uL (130-400); RDW Coefficient of Variation 13.8 % (11.5-14.5); Red Blood Count 3.43 M/uL (4.20-5.40); White Blood Count 7.15 K/ul (4.8-10.8)
[2023-08-11 08:24] LABS: C Reactive Protein 0.95 mg/dl (0-0.5)
--- NOTE | 2023-08-11 11:23 | CT Scan Report ---
CT SCAN OF THE ABDOMEN AND PELVIS WITHOUT IV CONTRAST CLINICAL HISTORY: Right-sided abdominal pain. Pancreatitis. COMPARISON STUDY: Abdominal CT dated 08/05/2023. MRCP dated 08/05/2023. TECHNIQUE: CT scan of the abdomen and pelvis is performed from the lung bases to the proximal femora. Images are reviewed in the axial, sagittal, and coronal planes. IV contrast was not administered for this examination as per the referring clinician. Note that the examination was performed in suboptim al fashion without oral and IV contrast. A dose lowering technique was utilized adhering to the princ iplrosio of RADHA. CT DOSE: 761.96 mGy.cm FINDINGS: Lung bases: The heart is mildly enlarged and without pericardial effusion. There are small pleural ef fusions with dependent atelectasis. A small hiatal hernia is noted. Liver: The unenhanced liver is normal in size, contour, and attenuation. There is no intrahepatic marysol iary ductal dilatation. An 11 mm hepatic cyst is incidentally noted and unchanged. Gallbladder: The gallbladder is mildly distended and there is faint pericholecystic infiltration. Spleen: Normal in size and attenuation. Pancreas: The unenhanced pancreas is mildly atrophic and grossly unremarkable. Prominence of the panc reatic duct is again noted. This measures up to 4.5 mm. No peripancreatic fluid collection is identif ied. Adrenal glands: Unremarkable. Kidneys: There is asymmetric cortical atrophy of the right kidney as compared to the left. No hydrone phrosis is seen. There are no renal calculi identified. There is no evidence of contour deforming herson al mass lesion. Abdominal vasculature: There is advanced atherosclerotic calcification and mild ectasia of the abdomi nal aorta. Bowel: No bowel obstruction is seen. There is advanced colonic diverticulosis without CT evidence of acute diverticulitis. There is mild rectal wall thickening with surrounding infiltration. The appendi x is not identified and reported surgically absent. Peritoneum: There is trace perisplenic and pelvic ascites. No intraperitoneal free air is identified. Lymphadenopathy: None. Pelvic viscera: The bladder is normal as visualized. The uterus is surgically absent. No adnexal lesi on is seen. Skeletal structures: The skeletal structures are osteopenic. There is moderate lumbosacral spondylosi s and mild scoliosis. No lytic or blastic lesions are seen. IMPRESSION: 1. There is no CT evidence of acute pancreatitis as clinically queried. Correlate with clinical and l aboratory findings. 2. Prominence of the pancreatic duct is similar to previous and was better assessed on the 08/05/2023 [employer]. 3. No peripancreatic fluid collection is seen. 4. There is minimal infiltration identified around the gallbladder. Correlate with clinical end labor atory findings. If there is clinical concern for acute cholecystitis this could be further assessed w ith a right upper quadrant ultrasound. 5. Small pleural effusions with dependent atelectasis. 6. Question a mild proctitis. Correlate clinically. 7. Advanced colonic diverticulosis without CT evidence of acute diverticulitis. 8. Trace abdominopelvic ascites. 9. Additional findings as above. ACT 112: Negative or not required by law. Electronically signed by: Yang Wolfe M.D. 08/11/2023 11:20 AM
[2023-08-11] MEDS: LORazepam 0.5 MG TAB PO PRN ×2 (11:30→22:17)
[2023-08-11] MEDS: hydrALAZINE HCL 20 MG/ML VIAL IV PRN (12:08)
[2023-08-11] MEDS ORDERED: PIPER/TAZO 4.5g in D5W MINI-B 100 ML IV ONE (12:30)
--- NOTE | 2023-08-11 13:19 | Hospitalist Progress Note ---
Date of Service August 11, 2023 Assessment & Plan (1) Abdominal pain: Plan: Initially thought to be secondary to acute pancreatitis with elevated lipase and finding of pancreatic duct stenosis MRCP confirms pancreatic ductal dilatation with concern for stenosis of the pancreatic duct Patient will eventually need an EUS/ERCP GI plans to do endoscopy procedures outpatient after this acute pancreatitis is resolved GI recommended to continue to treat acute pancreatitis conservatively However despite 6 days of conservative treatment, patient continues to have severe pain. Lipase repeated today has normalized ERCP is normal CRP is raised Abdominal CT was repeated today that did not show any findings of acute pancreatitis but raising questions about acute cholecystitis The patient was started on IV Zosyn. Right upper quadrant ultrasound ordered Consult general surgery Continue D5 normal saline Continue IV Dilaudid for pain control (2) Acute pancreatitis: Plan: -See abdominal pain (3) Hypertension: Plan: Patient is noted to be quite hypertensive Ordered IV hydralazine every 8 as needed Oral medications including amlodipine, metoprolol and losartan on hold Enalapril discontinued because of a history of swelling with GLENNA inhibitor's Ordered IV metoprolol every 4 hours Most likely pain related Will treat her pain more aggressively (4) GERD without esophagitis: Plan: -Patient says that Protonix makes her dizzy. Discontinue (5) Chronic kidney disease, stage III (moderate): Plan: -Stable Admission and Anticipated Discharge Date Admission Date: August 05, 2023 Subjective Patient says that her pain is rather slightly worse today. She has required 1 mg of Dilaudid quite frequently in the last 24 hours. She still has no appetite. Has been n.p.o. for days. Since there has been no improvement in the last 6 days, labs were repeated. Her LFTs have been normal. ESR is now normal. CRP is elevated. His lipase has normalized. CT abdomen was repeated that raise questions about acute cholecystitis. She was started on IV Zosyn. Right upper quadrant ultrasound ordered. Consulted general surgery. Review of Systems Review of Systems: All systems reviewed & are unremarkable except as noted in Subjective Physical Exam Physical Exam: General: Awake, conversant Heart: S1, S2/regular rate and rhythm, no murmur rubs or gallops Lungs: Clear to auscultation bilaterally. Normal effort Abdomen: Soft/nondistended. Tenderness to palpation in the right upper quadrant. No rebound, rigidity or guarding. No hepatosplenomegaly Extremities: No clubbing/cyanosis. No edema Behavior: Appropriate, cooperative Results & Data Results & Data Vital Signs (Past 12 Hours) Vital Signs Temp Pulse Pulse Resp BP BP BP 08/11/23 12:34 36.8 C 71 17 169/65 H 08/11/23 12:15 56 L 08/11/23 12:07 36.7 C 62 18 212/69 H 08/11/23 11:28 68 08/11/23 08:38 58 L 157/80 H 08/11/23 08:31 64 08/11/23 08:06 68 08/11/23 08:00 54 L 08/11/23 08:00 36.8 C 64 17 171/67 H 08/11/23 04:40 157/69 H 08/11/23 04:39 157/69 H 08/11/23 03:45 36.9 C 65 18 192/73 H Pulse Ox O2 Del Method 08/11/23 12:34 96 Room Air 08/11/23 12:15 08/11/23 12:07 95 Room Air 08/11/23 11:28 08/11/23 08:38 08/11/23 08:31 08/11/23 08:06 08/11/23 08:00 08/11/23 08:00 95 Room Air 08/11/23 04:40 08/11/23 04:39 08/11/23 03:45 95 Room Air Laboratory Results Abnormal lab results 08/11/23 08/11/23 Range/Units 06:27 07:56 RBC 3.43 L (4.20-5.40) M/uL Hgb 10.1 L (12.0-16.0) g/dl Hct 31.1 L (37.0-47.0) % C-Reactive Protein 0.95 H (0-0.5) mg/dl Diagnostic Findings Abdomen/Pelvis CT 08/11/23 10:22 CT SCAN OF THE ABDOMEN AND PELVIS WITHOUT IV CONTRAST CLINICAL HISTORY: Right-sided abdominal pain. Pancreatitis. COMPARISON STUDY: Abdominal CT dated 08/05/2023. MRCP dated 08/05/2023. TECHNIQUE: CT scan of the abdomen and pelvis is performed from the lung bases to the proximal femora. Images are reviewed in the axial, sagittal, and coronal planes. IV contrast was not administered for this examination as per the referring clinician. Note that the examination was performed in suboptimal fashion without oral and IV contrast. A dose lowering technique was utilized adhering to the principles of ALARA. CT DOSE: 761.96 mGy.cm FINDINGS: Lung bases: The heart is mildly enlarged and without pericardial effusion. There are small pleural effusions with dependent atelectasis. A small hiatal hernia is noted. Liver: The unenhanced liver is normal in size, contour, and attenuation. There is no intrahepatic biliary ductal dilatation. An 11 mm hepatic cyst is incidentally noted and unchanged. Gallbladder: The gallbladder is mildly distended and there is faint pericholecystic infiltration. Spleen: Normal in size and attenuation. Pancreas: The unenhanced pancreas is mildly atrophic and grossly unremarkable. Prominence of the pancreatic duct is again noted. This measures up to 4.5 mm. No peripancreatic fluid collection is identified. Adrenal glands: Unremarkable. Kidneys: There is asymmetric cortical atrophy of the right kidney as compared to the left. No hydronephrosis is seen. There are no renal calculi identified. There is no evidence of contour deforming renal mass lesion. Abdominal vasculature: There is advanced atherosclerotic calcification and mild ectasia of the abdominal aorta. Bowel: No bowel obstruction is seen. There is advanced colonic diverticulosis without CT evidence of acute diverticulitis. There is mild rectal wall thickening with surrounding infiltration. The appendix is not identified and reported surgically absent. Peritoneum: There is trace perisplenic and pelvic ascites. No intraperitoneal free air is identified. Lymphadenopathy: None. Pelvic viscera: The bladder is normal as visualized. The uterus is surgically absent. No adnexal lesion is seen. Skeletal structures: The skeletal structures are osteopenic. There is moderate lumbosacral spondylosis and mild scoliosis. No lytic or blastic lesions are seen. IMPRESSION: 1. There is no CT evidence of acute pancreatitis as clinically queried. Correlate with clinical and laboratory findings. 2. Prominence of the pancreatic duct is similar to previous and was better assessed on the 08/05/2023 MRCP. 3. No peripancreatic fluid collection is seen. 4. There is minimal infiltration identified around the gallbladder. Correlate with clinical end laboratory findings. If there is clinical concern for acute cholecystitis this could be further assessed with a right upper quadrant ultrasound. 5. Small pleural effusions with dependent atelectasis. 6. Question a mild proctitis. Correlate clinically. 7. Advanced colonic diverticulosis without CT evidence of acute diverticulitis. 8. Trace abdominopelvic ascites. 9. Additional findings as above. ACT 112: Negative or not required by law. Electronically signed by: Yang Wolfe M.D. 08/11/2023 11:20 AM PG Care Time/CCT Total # of Minutes Spent Total Time Spent with Patient: Total time spent is greater than 50% in coordination of care (as documented) at patient's floor/unit and/or counseling patient: Coding Level of Care Code 26916 SUB INP/OBS CARE 2/35MIN Diagnoses Abdominal pain R10.30 Abdominal location: lower abdomen, unspecified Acute pancreatitis K85.90 Hypertension I10 GERD without esophagitis K21.9 Chronic kidney disease, stage III (moderate) N18.30 Chronic kidney disease stage 3 subtype: unspecified whether 3a or 3b (1) Abdominal pain Abdominal location: lower abdomen, unspecified Qualified Code(s): R10.30 - Lower abdominal pain, unspecified (5) Chronic kidney disease, stage III (moderate) Chronic kidney disease stage 3 subtype: unspecified whether 3a or 3b Qualified Code(s): N18.30 - Chronic kidney disease, stage 3 unspecified
--- NOTE | 2023-08-11 13:31 | Surgery Consultation ---
Date of Consultation August 11, 2023 Assessment & Plan (1) Acute pancreatitis: sludge is possible source of pancreatitis CT scan with possible cholecystitis also has continued pain will check HIDA discuss possible lap nick on Saturday History of Present Illness Attending Physician: Angelika Saha MD History of Present Illness This is an 78YO female who came with complaints of 8/10 right sided flank/abdominal pain and a lipase of 487. CT abd with sludge within the gallbladder. It also had mild dilatation of main pancreatic duct 4.5 mm in diameter. She is scheduled for outpatient EUS to work up pancreatic duct abnormality. Still having pain and recent CT abd with some possible signs of cholecystitis although could just be reactive. Allergies Allergy/AdvReac Type Severity Reaction Status Date / Time atropine [From ] Allergy Intermediate Hives Verified 08/05/23 16:36 cimetidine [From Tagamet] Allergy Intermediate Hives Verified 08/05/23 16:36 hyoscyamine [From ] Allergy Intermediate Hives Verified 08/05/23 16:36 Iodinated Contrast Media Allergy Intermediate Hives Verified 08/05/23 16:36 [Iodinated Contrast- Oral and IV Dye] nitrofurantoin Allergy Intermediate Rash Verified 08/05/23 16:36 [From Macrobid] phenobarbital [From ] Allergy Intermediate Hives Verified 08/05/23 16:36 regadenoson Allergy Intermediate loss of Verified 08/05/23 16:36 vision, low Blood pressure scopolamine [From ] Allergy Intermediate Hives Verified 08/05/23 16:36 ketoprofen [From Orudis] Allergy Mild Rash Verified 08/05/23 16:36 duloxetine [From Cymbalta] AdvReac Intermediate Swelling Verified 08/05/23 16:36 diltiazem AdvReac Mild Hallucinati Verified 08/05/23 16:36 ng doxepin AdvReac Mild Hallucinati Verified 08/05/23 16:36 ng doxycycline AdvReac Mild Heartburn Verified 08/05/23 16:36 hydrocodone AdvReac Mild Dizziness Verified 08/05/23 16:36 lisinopril [From Zestril] AdvReac Mild Swelling Verified 08/05/23 16:36 pantoprazole [From Protonix] AdvReac Mild Dizziness Verified 08/05/23 16:36 Home Medications Medication Instructions Recorded Confirmed Type lorazepam 0.5 mg tablet 0.5 mg PO DAILY PRN Anxiety 04/14/21 08/05/23 History metoprolol succinate 25 mg 25 mg PO BID 04/14/21 08/05/23 History tablet,extended release 24 hr acetaminophen 500 mg tablet 1,000 mg PO Q6H PRN Back Pain 04/27/21 08/05/23 History (Tylenol Extra Strength) ergocalciferol (vitamin D2) 1,250 50,000 unit PO Q30D 05/13/23 08/05/23 History mcg (50,000 unit) capsule furosemide 20 mg tablet 20 - 40 mg PO DAILY PRN Fluid 05/13/23 08/05/23 History Retention linaclotide 72 mcg capsule 72 mcg PO QAM 05/13/23 08/05/23 History (Linzess) losartan 100 mg tablet 100 mg PO QAM 05/13/23 08/05/23 History amlodipine 10 mg tablet 10 mg PO DAILY 08/05/23 08/05/23 History Patient History Medical History Hx of cardiac murmur has had since age 3, "it comes and goes"; f/u dr. 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"; F/U DR PATEL Surgical History History of left cataract extraction History of dilatation and curettage History of esophagogastroduodenoscopy (EGD) History of breast biopsy RIGHT BENIGN History of hysterectomy History of appendectomy History of tonsillectomy H/O colonoscopy Family History Other No known health problems Social History Smoking Status: Never smoker Second Hand Exposure: No; Do You Dip or Chew Tobacco: No; Hx Alcohol Use: No Hx Substance Use: No Preferred Language: Hungarian Communication Ability: Effective Engine Hostler Required: No Beliefs That Will Affect Care: None Current Living Situation: Spouse current occupational status: retired Feels Safe at Home: Yes Assistive Devices: Brace/Splint/Immobilizer, Cane and Walker Review of Systems Constitutional: no fever, no chills and no anorexia Eyes: no problem reported Ear, Nose, Mouth, Throat: no problem reported Respiratory: no cough and no dyspnea Cardiovascular: no chest pain Gastrointestinal: + abdominal pain and + nausea; no vomiti ng and no diarrhea/loose stools Genitourinary: no dysuria Musculoskeletal: + back pain Integumentary: no problem reported Neurologic: no problem reported Psychiatric: no behavioral changes Hematologic / Lymphatic: no easy bleeding and no easy bruising Physical Exam Constitutional: WD/WN, vitals as above Eyes: PERRL, conjunctivae normal, anicteric sclerae Neck: trachea midline Respiratory: normal respiratory effort, lungs clear to auscultation Cardiovascular: RRR, no murmur, no edema Gastrointestinal (Abdomen): Inspection/Auscultation: abdomen normal to inspection and normal bowel sounds; abdomen not distended Percussion/Palpation: + abdomen tender and abdomen soft; no guarding and abdomen not rigid Musculoskeletal: Head/Neck/Chest: normocephalic and head atraumatic Skin: no rashes, warm and dry Results & Data Vital Signs (Past 12 Hours) Vital Signs Temp Pulse Pulse Resp BP BP BP 08/11/23 12:34 36.8 C 71 17 169/65 H 08/11/23 12:15 56 L 08/11/23 12:07 36.7 C 62 18 212/69 H 08/11/23 11:28 68 08/11/23 08:38 58 L 157/80 H 08/11/23 08:31 64 08/11/23 08:06 68 08/11/23 08:00 54 L 08/11/23 08:00 36.8 C 64 17 171/67 H 08/11/23 04:40 157/69 H 08/11/23 04:39 157/69 H 08/11/23 03:45 36.9 C 65 18 192/73 H Pulse Ox O2 Del Method 08/11/23 12:34 96 Room Air 08/11/23 12:15 08/11/23 12:07 95 Room Air 08/11/23 11:28 08/11/23 08:38 08/11/23 08:31 08/11/23 08:06 08/11/23 08:00 08/11/23 08:00 95 Room Air 08/11/23 04:40 08/11/23 04:39 08/11/23 03:45 95 Room Air Diagnostic Findings CT SCAN OF THE ABDOMEN AND PELVIS WITHOUT IV CONTRAST CLINICAL HISTORY: Right-sided abdominal pain. Pancreatitis. COMPARISON STUDY: Abdominal CT dated 08/05/2023. MRCP dated 08/05/2023. TECHNIQUE: CT scan of the abdomen and pelvis is performed from the lung bases to the proximal femora. Images are reviewed in the axial, sagittal, and coronal planes. IV contrast was not administered for this examination as per the referring clinician. Note that the examination was performed in suboptimal fashion without oral and IV contrast. A dose lowering technique was utilized adhering to the principles of ALARA. CT DOSE: 761.96 mGy.cm FINDINGS: Lung bases: The heart is mildly enlarged and without pericardial effusion. There are small pleural effusions with dependent atelectasis. A small hiatal hernia is noted. Liver: The unenhanced liver is normal in size, contour, and attenuation. There is no intrahepatic biliary ductal dilatation. An 11 mm hepatic cyst is incidentally noted and unchanged. Gallbladder: The gallbladder is mildly distended and there is faint pericholecystic infiltration. Spleen: Normal in size and attenuation. Pancreas: The unenhanced pancreas is mildly atrophic and grossly unremarkable. Prominence of the pancreatic duct is again noted. This measures up to 4.5 mm. No peripancreatic fluid collection is identified. Adrenal glands: Unremarkable. Kidneys: There is asymmetric cortical atrophy of the right kidney as compared to the left. No hydronephrosis is seen. There are no renal calculi identified. There is no evidence of contour deforming renal mass lesion. Abdominal vasculature: There is advanced atherosclerotic calcification and mild ectasia of the abdominal aorta. Bowel: No bowel obstruction is seen. There is advanced colonic diverticulosis without CT evidence of acute diverticulitis. There is mild rectal wall thickening with surrounding infiltration. The appendix is not identified and reported surgically absent. Peritoneum: There is trace perisplenic and pelvic ascites. No intraperitoneal free air is identified. Lymphadenopathy: None. Pelvic viscera: The bladder is normal as visualized. The uterus is surgically absent. No adnexal lesion is seen. Skeletal structures: The skeletal structures are osteopenic. There is moderate lumbosacral spondylosis and mild scoliosis. No lytic or blastic lesions are seen. IMPRESSION: 1. There is no CT evidence of acute pancreatitis as clinically queried. Correlate with clinical and laboratory findings. 2. Prominence of the pancreatic duct is similar to previous and was better assessed on the 08/05/2023 MRCP. 3. No peripancreatic fluid collection is seen. 4. There is minimal infiltration identified around the gallbladder. Correlate with clinical end laboratory findings. If there is clinical concern for acute cholecystitis this could be further assessed with a right upper quadrant ultrasound. 5. Small pleural effusions with dependent atelectasis. 6. Question a mild proctitis. Correlate clinically. 7. Advanced colonic diverticulosis without CT evidence of acute diverticulitis. 8. Trace abdominopelvic ascites. 9. Additional findings as above.
[2023-08-11] MEDS: PIPERACILLIN/TAZOBACTAM 4.5 GM in DEXTROSE 5% MINI-B 100 ML IV SCH (17:10)
--- NOTE | 2023-08-11 17:27 | Ultrasound Report ---
ULTRASOUND RIGHT UPPER QUADRANT ABDOMEN CLINICAL HISTORY: Right quadrant abdominal pain. COMPARISON STUDY: Abdominal CT dated 08/11/2023. TECHNIQUE: Real-time, grayscale, and color flow sonography of the right upper quadrant of the abdomen was performed. Images are reviewed in the transverse and longitudinal planes. FINDINGS: Liver: The liver is normal in size and heterogeneous in echotexture. There is no intrahepatic biliary ductal dilatation. The main portal vein is patent. Gallbladder: The gallbladder is distended, and the wall is thickened and edematous measuring up to 3. 5 cm. There is biliary sludge and small gallstones. There is trace pericholecystic fluid. A sonograph ic Ruodlph's sign is reportedly absent. The common bile duct measures up to 0.5 cm in diameter. Pancreas: Not visualized due to overlying bowel gas. Right kidney: Survey images of the right kidney demonstrate cortical atrophy/parenchymal scarring. Ec hotexture is normal. There is no hydronephrosis. Ascites: None. Pleural spaces: A right pleural effusion is noted. IMPRESSION: 1. Distended gallbladder containing stones and sludge. The wall is abnormally thickened and edematous with trace pericholecystic fluid. Acute cholecystitis is not excluded. Clinical and laboratory corre lation will be required. A nuclear hepatobiliary scan could be considered for further assessment. 2. There is no intra or extrahepatic biliary ductal dilatation. 3. Nonvisualization pancreas. 4. Right pleural effusion. ACT 112: Negative or not required by law. Electronically signed by: Yang Wolfe M.D. 08/11/2023 5:25 PM
[2023-08-12] MEDS: METOPROLOL TARTRATE 1 MG/ML VIAL IV SCH ×7 (00:10→23:27)
[2023-08-12] MEDS: PIPERACILLIN/TAZOBACTAM 4.5 GM in DEXTROSE 5% MINI-B 100 ML IV SCH ×3 (01:11→17:16)
[2023-08-12] MEDS: HYDROmorphone INJ 1 MG/ML SYRINGE IV PRN ×5 (03:57→23:23)
[2023-08-12] MEDS: D5W AND NSS 1,000 ML IV SCH ×3 (05:44→23:20)
[2023-08-12 07:40] LABS: Hematocrit (blood only) 30.1 % (37.0-47.0); Hemoglobin 9.8 g/dl (12.0-16.0); Mean Corpuscular Hemoglobin 29.4 pg (25.0-34.0); Mean Corpuscular Hgb Conc 32.6 g/dL (32.0-36.0); Mean Corpuscular Volume 90.4 fL (80.0-100.0); Mean Platelet Volume 10.3 fL (9.4-12.4); Platelet Count 193 K/uL (130-400); RDW Coefficient of Variation 14.1 % (11.5-14.5); RDW Standard Deviation 46.2 fL (36.4-46.3); Red Blood Count 3.33 M/uL (4.20-5.40); White Blood Count 6.41 K/ul (4.8-10.8)
[2023-08-12 10:02] LABS: Albumin Globulin Ratio 1.3 (0.9-2); Albumin Level 2.9 gm/dl (3.4-5.0); BUN Creatinine Ratio 2.8 (10-20); Bilirubin,Total 0.5 mg/dl (0.2-1.0); Calcium 7.9 mg/dl (8.6-10.3); Creatinine Clr Calc Pharmacy 35.9 ml/min; Est GFR (African American) 56.1 ml/min; Est GFR (Non-African American) 48.4 ml/min; Globulin 2.2 gm/dl (2.5-4.0); Potassium 3.5 mmol/L (3.5-5.1); Total Protein 5.1 gm/dl (6.0-8.3)
--- NOTE | 2023-08-12 10:42 | Surgery Progress Note ---
Date of Service August 12, 2023 Assessment & Plan (1) Acute pancreatitis: Plan: still with pain ergo HERIBERTO recommend lap nick with sludge being the likely source of her acute pancreatitis lap nick in AM Admission and Anticipated Discharge Date Admission Date: August 05, 2023 Subjective still having pain HIDA today Review of Systems Constitutional: no fever and no chills Respiratory: no cough and no dyspnea Cardiovascular: no chest pain Gastrointestinal: + abdominal pain; no nausea and no vomit ing Genitourinary: no dysuria Musculoskeletal: + back pain Psychiatric: no behavioral changes Hematologic / Lymphatic: no easy bleeding and no easy bruising Physical Exam Constitutional: WD/WN, vitals as above Neck: trachea midline Respiratory: normal respiratory effort, lungs clear to auscultation Cardiovascular: RRR, no murmur, no edema Gastrointestinal (Abdomen): Inspection/Auscultation: abdomen normal to inspection and normal bowel sounds; abdomen not distended Percussion/Palpation: + abdomen tender and abdomen soft; no guarding and abdomen not rigid Musculoskeletal: Head/Neck/Chest: normocephalic and head atraumatic Skin: no rashes, warm and dry Results & Data Vital Signs (Past 12 Hours) Vital Signs Temp Pulse Pulse Resp BP BP Pulse Ox 08/12/23 08:16 67 08/12/23 08:00 53 L 08/12/23 07:53 68 08/12/23 07:10 36.8 C 64 18 147/71 H 95 08/12/23 05:43 76 08/12/23 03:56 82 08/12/23 03:49 37.2 C 82 18 175/86 H 96 08/12/23 01:07 63 08/12/23 00:30 68 08/11/23 23:10 37.1 C 68 16 135/67 94 O2 Del Method 08/12/23 08:16 08/12/23 08:00 08/12/23 07:53 08/12/23 07:10 Room Air 08/12/23 05:43 08/12/23 03:56 08/12/23 03:49 Room Air 08/12/23 01:07 08/12/23 00:30 08/11/23 23:10 Room Air
[2023-08-12] MEDS: hydrALAZINE HCL 20 MG/ML VIAL IV PRN (11:34)
[2023-08-12] MEDS ORDERED: SINCALIDE 1.3 MCG in 0.9 % SODIUM CHLORIDE 100 ML IV ONE (12:30)
--- NOTE | 2023-08-12 13:00 | Hospitalist Progress Note ---
Date of Service August 12, 2023 Assessment & Plan (1) Gallstones: Plan: in light of clinical presentation - acute pancreatitis, abdominal symptoms, gallstones/sludge on imaging, etc - there is heavy suspicion Ms Galarza has acute cholecystitis. NPO after MN tonight for lap nick tomorrow by gen surg. cont IV zosyn. cont IV pain meds. cont IV fluids. LFTs remain stable. other labs are acceptable. (2) Abdominal pain: Plan: at time of admission symptoms were thought 2nd to acute pancreatitis. despite supportive care and improvement in her lipase level her abdominal symptoms never abated. repeat imaging yesterday with concerns for developing acute cholecystitis. antibiotics changed to IV zosyn yesterday by prior attending hospitalist. gen surg has seen in consult and has posted Mrs Galarza for lap nick tomorrow. although HIDA scan is negative her clinical picture is highly suspicious for acute cholecystitis. cont IV zosyn, pain meds, fluids, etc. NPO after MN tonight for lap nick in am by Dr Ruggiero. (3) Acute pancreatitis: Plan: peak lipase level 487 on 08/05, with normal level 08/11. despite normalization her abdominal pain persisted. imaging on 08/11 concerning for acute cholecystitis. see above. (4) Dilated pancreatic duct: Plan: imaging especially her MRCP shows a dilated pancreatic duct. cause of such is uncertain. will need EUS/ERCP by [facility] in the outpatient setting in the near-future once the gall bladder has been taken care of. need to r/o stricture vs mass vs other cause of the ductal dilatation. (5) Hypertension: Plan: Oral BP medications including amlodipine, metoprolol and losartan on hold In petros using IV lopressor 5mg q4h scheduled BPs still high - likely due to pain - but many SBPs have been >200 Thus, will schedule hydralazine 10mg IV q8h Treat abdominal pain (6) GERD without esophagitis: Plan: Has allergy / intolerance to PPIs thus, if GERD Rx is needed --> use famotidine IV (7) Chronic kidney disease, stage III (moderate): Plan: Stage 3B CrCl at baseline low 30s BMP am for stability Plan DVT proph - hold chemical means due to lap nick tomorrow daughter updated at bedside Admission and Anticipated Discharge Date Admission Date: August 05, 2023 Subjective patient lying in bed awaiting HIDA scan daughter present continues with RUQ pain - fairly constant, pain relieved with pain meds patient reports having had a reaction during a nuclear stress test years ago in [place] near-syncopal episode with blurry vision/loss of vision nothing permanent came about from that event she denies any dyspnea or chest pain no vomiting only 1 BM since admission to the hospital - needed a suppository for such Review of Systems Review of Systems: gen - no fevers cv - no chest pain pulm - no cough or dyspnea GI - ongoing RUQ pain Physical Exam Physical Exam: gen - NAD, lying comfortably in bed eyes - no icterus mouth - MMM neck - no JVD heart - RRR, s1 s2 lungs - CTA b/l abd - tender RUQ, BS+, ND, no peritoneal signs ext - no edema, pulses 2+ b/l Results & Data Results & Data Vital Signs (Past 12 Hours) Vital Signs Temp Pulse Pulse Resp BP BP Pulse Ox 08/12/23 12:10 165/77 H 08/12/23 12:09 71 08/12/23 11:34 68 08/12/23 11:26 36.7 C 67 18 209/71 H 217/77 H 97 08/12/23 08:16 67 08/12/23 08:00 53 L 08/12/23 07:53 68 08/12/23 07:10 36.8 C 64 18 147/71 H 95 08/12/23 05:43 76 08/12/23 03:56 82 08/12/23 03:49 37.2 C 82 18 175/86 H 96 08/12/23 01:07 63 O2 Del Method 08/12/23 12:10 08/12/23 12:09 08/12/23 11:34 08/12/23 11:26 Room Air 08/12/23 08:16 08/12/23 08:00 08/12/23 07:53 08/12/23 07:10 Room Air 08/12/23 05:43 08/12/23 03:56 08/12/23 03:49 Room Air 08/12/23 01:07 Laboratory Results Laboratory Results - last 24 hr 08/12/23 08/12/23 06:30 06:33 WBC 6.41 RBC 3.33 L Hgb 9.8 L Hct 30.1 L MCV 90.4 MCH 29.4 MCHC 32.6 RDW Std Deviation 46.2 RDW Coeff of Jordi 14.1 Plt Count 193 MPV 10.3 Sodium 141 Potassium 3.5 Chloride 113 H Carbon Dioxide 24 Anion Gap 4 BUN 3 L Creatinine 1.08 Est Cr Clr Drug Dosing 35.9 Est GFR ( Amer) 56.1 Est GFR (Non-Af Amer) 48.4 BUN/Creatinine Ratio 2.8 L Glucose 120 H Calcium 7.9 L Total Bilirubin 0.5 AST 12 L ALT 7 Alkaline Phosphatase 37 Total Protein 5.1 L Albumin 2.9 L Globulin 2.2 L Albumin/Globulin Ratio 1.3 Diagnostic Findings Hepatobiliary Scan Nuclear Medicine 08/12/23 13:43 NM hepatobiliary EF CLINICAL HISTORY: cholecystitis TECHNIQUE: Following the intravenous injection of 5.20 mCi of Tc-99m labeled Technetium 99m mebrofenin, multiple images of the upper abdomen were obtained in the anterior projection with uptake measurements of the gallbladder obtained. Once the gallbladder and small bowel were visualized, the patient was intravenously infused over 30 minutes with 0.02 mcg/kg of Sincalide (CCK), and imaging and uptakes were again obtained. Comparison: None available at the time of this dictation. FINDINGS: Sequential images demonstrate normal uptake in the liver, common bile duct, gallbladder, and small bowel. No defects in uptake are identified. Subsequent imaging after the administration of sincalide demonstrates prompt elimination of the radiotracer from the gallbladder. The calculated gallbladder ejection fraction based on uptake measurements is 37%. IMPRESSION: Normal uptake and excretion of contrast by the gallbladder. Reference: Normal gallbladder ejection fraction is greater than 33%. ACT 112: Negative or not required by law. Electronically signed by: Gianluca Jones M.D. 08/12/2023 4:33 PM PG Care Time/CCT Total # of Minutes Spent Total Time Spent with Patient: Total time spent is greater than 50% in coordination of care (as documented) at patient's floor/unit and/or counseling patient: Coding Level of Care Code 44060 SUB INP/OBS CARE 2/35MIN Diagnoses Gallstones K80.20 Abdominal pain R10.30 Abdominal location: lower abdomen, unspecified Acute pancreatitis K85.90 Dilated pancreatic duct K86.89 Hypertension I10 GERD without esophagitis K21.9 Chronic kidney disease, stage III (moderate) N18.30 Chronic kidney disease stage 3 subtype: unspecified whether 3a or 3b (2) Abdominal pain Abdominal location: lower abdomen, unspecified Qualified Code(s): R10.30 - Lower abdominal pain, unspecified (7) Chronic kidney disease, stage III (moderate) Chronic kidney disease stage 3 subtype: unspecified whether 3a or 3b Qualified Code(s): N18.30 - Chronic kidney disease, stage 3 unspecified
--- NOTE | 2023-08-12 16:34 | Nuclear Medicine Report ---
NM hepatobiliary EF CLINICAL HISTORY: cholecystitis TECHNIQUE: Following the intravenous injection of 5.20 mCi of Tc-99m labeled Technetium 99m mebrofen in, multiple images of the upper abdomen were obtained in the anterior projection with uptake measure ments of the gallbladder obtained. Once the gallbladder and small bowel were visualized, the patient was intravenously infused over 30 minutes with 0.02 mcg/kg of Sincalide (CCK), and imaging and uptake s were again obtained. Comparison: None available at the time of this dictation. FINDINGS: Sequential images demonstrate normal uptake in the liver, common bile duct, gallbladder, an d small bowel. No defects in uptake are identified. Subsequent imaging after the administration of si ncalide demonstrates prompt elimination of the radiotracer from the gallbladder. The calculated gallbladder ejection fraction based on uptake measurements is 37%. IMPRESSION: Normal uptake and excretion of contrast by the gallbladder. Reference: Normal gallbladder ejection fraction is greater than 33%. ACT 112: Negative or not required by law. Electronically signed by: Gianluca Jones M.D. 08/12/2023 4:33 PM
[2023-08-12] MEDS: LORazepam 0.5 MG TAB PO PRN ×2 (17:18→23:21)
[2023-08-12] MEDS: hydrALAZINE HCL 20 MG/ML VIAL IV SCH ×2 (20:21→21:45)
[2023-08-13] MEDS: PIPERACILLIN/TAZOBACTAM 4.5 GM in DEXTROSE 5% MINI-B 100 ML IV SCH ×3 (02:00→17:11)
[2023-08-13] MEDS: METOPROLOL TARTRATE 1 MG/ML VIAL IV SCH ×5 (04:15→19:40)
[2023-08-13] MEDS: HYDROmorphone INJ 1 MG/ML SYRINGE IV PRN ×3 (05:07→19:41)
[2023-08-13] MEDS ORDERED: ceFAZolin 2000MG 2,000 MG/15 ML SYR IV SCH (06:00)
[2023-08-13] MEDS: hydrALAZINE HCL 20 MG/ML VIAL IV SCH ×3 (06:11→22:47)
[2023-08-13 06:35] LABS: Hematocrit (blood only) 28.5 % (37.0-47.0); Hemoglobin 9.3 g/dl (12.0-16.0); Mean Corpuscular Hemoglobin 29.2 pg (25.0-34.0); Mean Corpuscular Hgb Conc 32.6 g/dL (32.0-36.0); Mean Corpuscular Volume 89.6 fL (80.0-100.0); Mean Platelet Volume 10.5 fL (9.4-12.4); Platelet Count 195 K/uL (130-400); Red Blood Count 3.18 M/uL (4.20-5.40); White Blood Count 7.18 K/ul (4.8-10.8)
[2023-08-13 06:58] LABS: BUN Creatinine Ratio 3.3 (10-20); Calcium 7.7 mg/dl (8.6-10.3); Creatinine Clr Calc Pharmacy 35.1 ml/min; Est GFR (African American) 49.4 ml/min; Est GFR (Non-African American) 42.7 ml/min
[2023-08-13] MEDS: D5W AND NSS 1,000 ML IV SCH (07:16)
[2023-08-13] MEDS ORDERED: POTASSIUM CHLORIDE CRTAB 20 MEQ TABCR PO STA (07:23)
[2023-08-13] MEDS: POTASSIUM CHLORIDE / WTR 10 MEQ/100 ML PLCT IV SCH ×2 (07:38→08:30)
[2023-08-13 08:49] LABS: Magnesium 1.4 mg/dl (1.7-2.4)
[2023-08-13] MEDS: MAGNESIUM SULFATE / D5W 1 GM/100 ML BAG IV SCH ×2 (09:28→13:45)
--- NOTE | 2023-08-13 09:35 | History & Physical Bridge Note ---
Date of Service August 13, 2023 History & Physical Bridge Note I have examined the patient, reviewed the History & Physical and in the interval since the performance of the History & Physical I have noted the following changes of clinical significance: no changes noted
[2023-08-13] MEDS ORDERED: LACTATED RINGER'S 1,000 ML IV SCH (10:00)
[2023-08-13] MEDS ORDERED: fentaNYL citrate PF 100 MCG/2 ML VIAL ONE (10:26)
[2023-08-13] MEDS ORDERED: ROCURONIUM BROMIDE 10 MG/ML 5 ML VIAL IV ONE (10:26)
[2023-08-13] MEDS ORDERED: PROPOFOL IV EMULSION 10 MG/ML 20 ML VIAL IV ONE (10:26)
[2023-08-13] MEDS ORDERED: BUPIVACAINE/EPINEPHRINE 0.5% MPF 1:200,000 30 ML VIAL ONE (11:11)
--- NOTE | 2023-08-13 11:16 | Anesthesiology Consultation ---
Date of Service August 13, 2023 Assessment & Plan Chart Review Chart Review: Acceptable Risk for Surgery and Patient NOT seen in Pre Admission Testing Consults Requested none History Surgery Operation Date: 08/13/23 10:40 Proposed Procedures p Laparoscopic Cholecystectomy - Alvin Ruggiero MD Height/Weight Height: 5 ft 4 in Weight: 66.6 kg Allergies Allergy/AdvReac Type Severity Reaction Status Date / Time atropine [From ] Allergy Intermediate Hives Verified 08/05/23 16:36 cimetidine [From Tagamet] Allergy Intermediate Hives Verified 08/05/23 16:36 hyoscyamine [From ] Allergy Intermediate Hives Verified 08/05/23 16:36 Iodinated Contrast Media Allergy Intermediate Hives Verified 08/05/23 16:36 [Iodinated Contrast- Oral and IV Dye] nitrofurantoin Allergy Intermediate Rash Verified 08/05/23 16:36 [From Macrobid] phenobarbital [From ] Allergy Intermediate Hives Verified 08/05/23 16:36 regadenoson Allergy Intermediate loss of Verified 08/05/23 16:36 vision, low Blood pressure scopolamine [From ] Allergy Intermediate Hives Verified 08/05/23 16:36 ketoprofen [From Orudis] Allergy Mild Rash Verified 08/05/23 16:36 duloxetine [From Cymbalta] AdvReac Intermediate Swelling Verified 08/05/23 16:36 diltiazem AdvReac Mild Hallucinati Verified 08/05/23 16:36 ng doxepin AdvReac Mild Hallucinati Verified 08/05/23 16:36 ng doxycycline AdvReac Mild Heartburn Verified 08/05/23 16:36 hydrocodone AdvReac Mild Dizziness Verified 08/05/23 16:36 lisinopril [From Zestril] AdvReac Mild Swelling Verified 08/05/23 16:36 pantoprazole [From Protonix] AdvReac Mild Dizziness Verified 08/05/23 16:36 Medications Home Medications Medication Instructions Recorded Confirmed Last Taken lorazepam 0.5 mg tablet 0.5 mg PO DAILY PRN Anxiety 04/14/21 08/05/23 05/22/23 07:30 metoprolol succinate 25 mg 25 mg PO BID 04/14/21 08/05/23 06/05/23 tablet,extended release 24 hr acetaminophen 500 mg tablet 1,000 mg PO Q6H PRN Back Pain 04/27/21 08/05/23 08/21/21 (Tylenol Extra Strength) ergocalciferol (vitamin D2) 1,250 50,000 unit PO Q30D 05/13/23 08/05/23 Unknown mcg (50,000 unit) capsule furosemide 20 mg tablet 20 - 40 mg PO DAILY PRN Fluid 05/13/23 08/05/23 05/21/23 Retention linaclotide 72 mcg capsule 72 mcg PO QAM 05/13/23 08/05/23 05/21/23 (Linzess) losartan 100 mg tablet 100 mg PO QAM 05/13/23 08/05/23 06/05/23 amlodipine 10 mg tablet 10 mg PO DAILY 08/05/23 08/05/23 Unknown Active Medications Generic Name Dose Route Start Last Admin Trade Name Freq PRN Reason Stop Dose Admin Calcium Carbonate 500 mg 08/06/23 00:23 08/10/23 09:47 Calcium Carbonate 500 Mg Chewable Tab PO 09/05/23 00:22 500 mg Q6H PRN Administration Indigestion Hydralazine HCl 10 mg 08/12/23 20:00 08/13/23 06:11 Hydralazine Hcl 20 Mg/Ml Vial IV 09/11/23 19:59 10 mg Q8 JAYLIN Administration Hydromorphone HCl 0.5 mg 08/09/23 11:49 08/10/23 11:18 Hydromorphone Inj 0.5 Mg/0.5 Ml Syr IV 08/22/23 13:48 0.5 mg Q3HWA PRN Administration Pain (1-6) Hydromorphone HCl 1 mg 08/10/23 12:13 08/13/23 07:40 Hydromorphone Inj 1 Mg/Ml Syringe IV 08/24/23 12:12 1 mg Q3H PRN Administration Severe Pain (Scale 7, 8, 9,10) Piperacillin Sod/Tazobactam 100 mls @ 25 mls/hr 08/11/23 18:00 08/13/23 09:57 Sod 4.5 gm/ Dextrose IV 08/21/23 17:59 25 mls/hr Q8H JAYLIN Administration Protocol Cefazolin Sodium 2,000 mg in 15 mls @ 3.75 mls/min 08/13/23 06:00 08/13/23 05:07 Ancef 2000mg IV 3.75 mls/min PREOP JAYLIN Administration Protocol Magnesium Sulfate/Dextrose 1 gm in 100 mls @ 50 mls/hr 08/13/23 09:15 08/13/23 09:28 Magnesium Sulfate / D5w IV 08/13/23 13:14 50 mls/hr Q2H JAYLIN Administration Lactated Ringer's 1,000 mls @ 15 mls/hr 08/13/23 10:00 08/13/23 10:38 Lr IV 09/12/23 09:59 15 mls/hr .Q24H JAYLIN Administration Lorazepam 0.5 mg 08/06/23 15:55 08/12/23 23:21 Lorazepam 0.5 Mg Tab PO 09/05/23 15:54 0.5 mg BID PRN Administration Anxiety Metoprolol Tartrate 5 mg 08/07/23 20:00 08/13/23 07:17 Metoprolol Tartrate 1 Mg/Ml Vial IV 09/06/23 19:59 5 mg Q4 JAYLIN Administration NPO Date Last Intake of Fluids: 08/12/23 Time Last Intake of Fluids: 21:00 Last Intake of Fluids Comment: sip of water 0738 w/med Date Last Intake of Solids: 08/04/23 Time Last Intake of Solids: 20:00 Past Medical History Medical History Hx of cardiac murmur has had since age 3, "it comes and goes"; f/u dr. 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"; F/U DR PATEL Past Family History Family History Other No known health problems Past Surgical History Surgical History History of left cataract extraction History of dilatation and curettage History of esophagogastroduodenoscopy (EGD) History of breast biopsy RIGHT BENIGN History of hysterectomy History of appendectomy History of tonsillectomy H/O colonoscopy Social History Smoking Status: Never smoker Do You Dip or Chew Tobacco: No Hx Alcohol Use: No alcohol intake frequency: holidays/special occasions only Hx Substance Use: No substance use type: former substance user and marijuana Substance Use Type Other:: MEDICAL MARIJUANA CARD Last Used Substance Other:: none for over 1 year Review of Systems Constitutional: no fever and no chills Eyes: no problem reported Ear, Nose, Mouth, Throat: no problem reported Respiratory: no cough and no dyspnea Cardiovascular: no chest pain Gastrointestinal: + abdominal pain; no nausea and no vomiting Genitourinary (Female): no dysuria Musculoskeletal: + back pain Integumentary: no problem reported Neurologic: no problem reported Psychiatric: no behavioral changes Hematologic / Lymphatic: no easy bleeding and no easy bruising Physical Exam Vital Signs Last Vital Signs Temp 37.3 C 08/13/23 10:30 Pulse 82 08/13/23 10:30 Resp 18 08/13/23 10:30 BP 186/80 H 08/13/23 10:30 Pulse Ox 96 08/13/23 10:30 O2 Del Method Room Air 08/13/23 10:30 Constitutional WD/WN, vitals as above Eyes PERRL, conjunctivae normal, anicteric sclerae Neck trachea midline Respiratory normal respiratory effort, lungs clear to auscultation Cardiovascular RRR, no murmur, no edema Gastrointestinal (Abdomen) Inspection/Auscultation: abdomen normal to inspection and normal bowel sounds; abdomen not distended Percussion/Palpation: + abdomen tender and abdomen soft; no guarding and abdomen not rigid Musculoskeletal Head/Neck/Chest: normocephalic and head atraumatic Skin no rashes, warm and dry Psychiatric Orientation: alert and oriented x 3 Affect: euthymic affect Testing Laboratory Results 08/13/23 05:46 08/13/23 05:46 PT 11.3 Seconds (9.0-12.0) 08/08/23 05:42 INR 1.0 (0.9-1.1) 08/08/23 05:42 Urine Color Yellow 08/05/23 09:45 Urine Appearance Clear (Clear) 01/08/24 09:45 Urine pH 8.0 (4.5-7.5) H 08/05/23 09:45 Ur Specific [place] 1.011 (1.000-1.030) 08/05/23 09:45 Urine Protein Negative (Negative) 08/05/23 09:45 Urine Glucose (UA) Negative (Negative) 08/05/23 09:45 Urine Ketones Negative (Negative) 08/05/23 09:45 Urine Nitrite Negative (Negative) 08/05/23 09:45 Ur Leukocyte Esterase Negative (Negative) 08/05/23 09:45
[2023-08-13] MEDS ORDERED: PHENYLEPHRINE HCL 10 MG/ML VIAL ONE (11:31)
[2023-08-13] MEDS ORDERED: ePHEDrine sulfate 50 MG/ML AMP IV PRN (11:38)
[2023-08-13] MEDS ORDERED: ONDANSETRON INJ 2 MG/ML 2 ML VIAL ONE (12:14)
[2023-08-13] MEDS ORDERED: DEXAMETHASONE SOD INJ 4 MG/ML VIAL ONE (12:14)
[2023-08-13] MEDS ORDERED: SUGAMMADEX SODIUM 200 MG/2 ML VIAL IV ONE (12:25)
--- NOTE | 2023-08-13 12:31 | Post Operative Brief Note ---
Immediate Post Op Note v1 Date of Surgery August 13, 2023 Pre & Post Diagnosis Operation Date: 08/13/23 10:40 Pre-Op Diagnosis: Acute pancreatitis. Post-Op Diagnosis: Acute pancreatitis. I identified the patient and participated in the time-out.: Yes Procedure Operation Date: 08/13/23 10:40 Actual Procedures p Laparoscopic Cholecystectomy - Alvin Ruggiero MD Surgeon Alvin Ruggiero MD Market Consultant none Estimated Blood Loss 10 Findings Consistent with Post-Op Diagnosis
--- NOTE | 2023-08-13 12:37 | Operative Report ---
Post Operative Report Pre & Post Diagnosis Operation Date: 08/13/23 10:40 Pre-Op Diagnosis: Acute pancreatitis. Post-Op Diagnosis: Acute pancreatitis. I identified the patient and participated in the time-out.: Yes Procedure Operation Date: 08/13/23 10:40 Actual Procedures p Laparoscopic Cholecystectomy - Alvin Ruggiero MD Surgeon Alvin Ruggiero MD Wool Buyer none Estimated Blood Loss 10 Findings Consistent with Post-Op Diagnosis Acute inflammatory changes Specimens Gallbladder to pathology Drains None Anesthesia Type General Complications None Indications This is a 78-year-old female admitted with acute pancreatitis. Her ultrasound showed sludge in her gallbladder. She continued to have pain and therefore HIDA was done which was negative. I recommended a laparoscopic cholecystectomy to remove the sludge in the likely source of her acute pancreatitis. She agrees and we will plan on doing laparoscopic cholecystectomy. Description of Procedure The patient was taken the OR and underwent excellent general endotracheal anesthesia. Their abdomen is prepped and draped normal sterile fashion. Transverse supraumbilical incision was made and dissection was taken down to identify the anterior fascia. Two Vicryl's were placed on either side of the midline and his midline was then incised. The peritoneal cavity was entered bluntly with Riana clamp. A 12mm Jackson trocar was then inserted and secured. Good pneumoperitoneum was achieved to 15 mmHg pressure. Patient is placed in head up and rolled to the left. A 11mm subxiphoid and two 5mm lateral ports were placed in the normal fashion. The gallbladder was identified and had some reactive inflammation from her pancreatitis. The fundus of the gallbladder which was retracted superiorly. The neck of the gallbladder was grasped and then retracted laterally. This splayed open the hepatocystic triangle. Attention was then to taking down the peritoneal attachments to identify the cystic duct and cystic artery. Once these were skeletonized and a medial and lateral window was created between the gallbladder fossa and the duct, thereby ensuring the critical view. Three clips were then placed distally on cystic duct 1 proximally the cystic duct was transected. Two clips were then placed approximately cystic artery one distally, the cystic artery was transected. An electrocautery hook was then used to move the gallbladder off the gallbladder fossa. There was no bile spillage. The gallbladder was then placed in Endobag and brought out through the supraumbilical incision. The pneumoperitoneum was re-established and abdomen was irrigated out until the suction fluid was clear. There were some areas on the gallbladder fossa which were raw and were cauterized. The ports were then removed and the abdomen decompressed. The fascia of the supraumbilical incision was closed with Vicryls. 0.5% Marcaine with epinephrine local was to create a local field block. Interrupted Vicryl was used to close the skin. Steri-Strips and benzoin were used to reinforce the incisions. Sterile dressings were applied. Patient tolerated the procedure without complication and sent to the postop recovery period of observation. He will then be sent to the floor for the rest of his care. I attest to the content of the Intraoperative Record and any orders documented therein. Any exceptions are noted below.
[2023-08-13] MEDS: fentaNYL citrate PF 100 MCG/2 ML VIAL IV PRN ×4 (12:47→13:10)
[2023-08-13] MEDS ORDERED: DROPERIDOL 5 MG/2 ML VIAL ONE (12:56)
[2023-08-13] MEDS ORDERED: DROPERIDOL 5 MG/2 ML VIAL IV STA (12:57)
[2023-08-13] MEDS ORDERED: MoRPHine SULFATE 2 MG/ML CARP IV PRN (13:46)
[2023-08-13] MEDS ORDERED: ACETAMINOPHEN 325 MG TAB PO PRN (13:46)
[2023-08-13] MEDS ORDERED: oxyCODONE/ACETAMINOPHEN 5mg/325mg TAB PO PRN (13:46)
[2023-08-13] MEDS ORDERED: MoRPHine SULFATE 4 MG/ML 1 ML CARP\\VIAL IV PRN (13:46)
--- NOTE | 2023-08-13 14:11 | Anesthesiology Progress Note ---
Date of Service August 13, 2023 Anesthesia Post Procedure Vital Signs Vital Signs: Temp Pulse Pulse Pulse Pulse Resp BP 08/13/23 13:55 36.7 C 74 16 08/13/23 13:45 36.7 C 82 15 08/13/23 13:20 36.7 C 70 14 08/13/23 13:10 74 14 08/13/23 13:00 78 18 08/13/23 12:50 76 18 08/13/23 12:40 37.7 C H 82 16 08/13/23 10:30 37.3 C 82 18 08/13/23 08:00 67 08/13/23 07:54 80 08/13/23 07:17 63 08/13/23 07:12 37.1 C 79 16 08/13/23 05:00 77 08/13/23 04:20 37.5 C 77 16 08/13/23 04:15 169/69 H 08/12/23 23:52 138/63 08/12/23 23:44 08/12/23 23:27 82 08/12/23 23:17 36.8 C 82 18 08/12/23 23:03 82 08/12/23 20:40 79 08/12/23 20:21 186/63 H 08/12/23 20:00 37.2 C 81 17 08/12/23 18:00 08/12/23 16:49 82 08/12/23 16:13 36.9 C 69 18 08/12/23 16:00 82 BP BP Pulse Ox O2 Del Method O2 Flow Rate 08/13/23 13:55 163/76 H 97 Nasal Cannula 2 08/13/23 13:45 189/73 H 97 Nasal Cannula 2 08/13/23 13:20 167/67 H 97 Nasal Cannula 2 08/13/23 13:10 163/69 H 97 Nasal Cannula 4 08/13/23 13:00 177/70 H 98 Nasal Cannula 4 08/13/23 12:50 174/73 H 96 Nasal Cannula 4 08/13/23 12:40 196/82 H 96 Nasal Cannula 4 08/13/23 10:30 186/80 H 96 Room Air 08/13/23 08:00 08/13/23 07:54 08/13/23 07:17 08/13/23 07:12 145/56 H 93 Room Air 08/13/23 05:00 08/13/23 04:20 169/69 H 95 Room Air 08/13/23 04:15 08/12/23 23:52 08/12/23 23:44 138/63 08/12/23 23:27 08/12/23 23:17 181/64 H 97 Room Air 08/12/23 23:03 08/12/23 20:40 08/12/23 20:21 08/12/23 20:00 186/63 H 95 Room Air 08/12/23 18:00 166/63 H 08/12/23 16:49 08/12/23 16:13 207/83 H 95 Room Air 08/12/23 16:00 Pain Intensity Right Medial Back: Pain Intensity: 7 Abdomen: Pain Intensity: 5 Transfer of Care Handoff Completed per policy Notes Mental Status: alert / awake / arousable Patient Amnestic to Procedure: Yes Nausea / Vomiting: adequately controlled Pain: adequately controlled Airway Patency, RR, SpO2: stable & adequate BP & HR: stable & adequate Hydration State: stable & adequate Anesthetic Complications: no major complications apparent and Pt Satisfied with anesthetic care
--- NOTE | 2023-08-13 17:14 | Hospitalist Progress Note ---
Date of Service August 13, 2023 Assessment & Plan (1) Gallstones: Plan: with concern for acute cholecystitis s/p lap nick by Dr Ruggiero today - appreciate his assistance cont IV zosyn for now but likely can d/c cont IV pain meds cont IV fluids but will lower the rate LFTs remain stable; repeat in am replace low K and lag mag (2) Abdominal pain: Plan: initially 2nd to acute pancreatitis which then biochemically resolved however, pain never fully resolved and ultimately settled in the RUQ - concerning for acute cholecystitis - see #1 above repeat labs in am (3) Acute pancreatitis: Plan: peak lipase level 487 on 08/05, with normal level 08/11. despite normalization her abdominal pain persisted. imaging on 08/11 concerning for acute cholecystitis. see above. (4) Dilated pancreatic duct: Plan: imaging especially her MRCP shows a dilated pancreatic duct. cause of such is uncertain. will need EUS/ERCP by [facility] in the outpatient setting in the near-future once the gall bladder has been taken care of. need to r/o stricture vs mass vs other cause of the ductal dilatation. (5) Hypertension: Plan: Oral BP medications including amlodipine, metoprolol and losartan on hold Cont IV lopressor 5mg q4h scheduled Cont scheduled hydralazine 10mg IV q8h Can likely d/c IV meds tomorrow and transition back to PO meds (6) GERD without esophagitis: Plan: Has allergy / intolerance to PPIs thus, if GERD Rx is needed --> use famotidine IV (7) Chronic kidney disease, stage III (moderate): Plan: Stage 3B CrCl at baseline low 30s BMP am for stability (8) Hypokalemia: Plan: replace PO + IV repeat BMP am replace low mag repeat mag level am (9) Hypomagnesemia: Plan: replace with IV mag sulfate 2gms repeat level am Plan DVT proph - resume heparin SC or similar tomorrow if ok with gen surg updated by phone this evening Admission and Anticipated Discharge Date Admission Date: August 05, 2023 Subjective saw patient post-op from her lap nick she was resting comfortably she c/o surgical pain over the surgical sites however, the original RUQ pain she had been having prior to surgery seemed bet ter no nausea or emesis has only had sips of liquids since returning from the OR very tired and resting since the OR denied any dyspnea or chest pain tele overnight - wnl Review of Systems Review of Systems: CV - no chest pain, no orthopnea pulm - no dyspnea, no cough GI - no vomiting Physical Exam Physical Exam: gen - NAD, lying comfortably in bed, resting mouth - MM dry neck - no JVD heart - RRR, s1 s2, no murmur lungs - CTA b/l abd - mildly distended, BS+ but decreased, tender RUQ (incisional pain), no peritoneal signs ext - no edema of ankles but mild dependent edema of hands, pulses 2+ b/l Results & Data Results & Data Vital Signs (Past 12 Hours) Vital Signs Temp Pulse Pulse Pulse Pulse Resp BP 08/13/23 15:52 36.7 C 72 20 08/13/23 15:41 70 08/13/23 15:11 70 167/77 H 08/13/23 15:01 36.2 C L 77 16 08/13/23 14:41 36.7 C 78 16 08/13/23 14:12 36.7 C 82 18 08/13/23 13:55 36.7 C 74 16 08/13/23 13:45 36.7 C 82 15 08/13/23 13:20 36.7 C 70 14 08/13/23 13:10 74 14 08/13/23 13:00 78 18 08/13/23 12:50 76 18 08/13/23 12:40 37.7 C H 82 16 08/13/23 10:30 37.3 C 82 18 08/13/23 08:00 67 08/13/23 07:54 80 08/13/23 07:17 63 08/13/23 07:12 37.1 C 79 16 BP BP Pulse Ox O2 Del Method O2 Flow Rate 08/13/23 15:52 165/75 H 98 Nasal Cannula 2 08/13/23 15:41 08/13/23 15:11 08/13/23 15:01 169/76 H 96 Nasal Cannula 2 08/13/23 14:41 168/76 H 97 Nasal Cannula 2 08/13/23 14:12 170/76 H 96 Nasal Cannula 2 08/13/23 13:55 163/76 H 97 Nasal Cannula 2 08/13/23 13:45 189/73 H 97 Nasal Cannula 2 08/13/23 13:20 167/67 H 97 Nasal Cannula 2 08/13/23 13:10 163/69 H 97 Nasal Cannula 4 08/13/23 13:00 177/70 H 98 Nasal Cannula 4 08/13/23 12:50 174/73 H 96 Nasal Cannula 4 08/13/23 12:40 196/82 H 96 Nasal Cannula 4 08/13/23 10:30 186/80 H 96 Room Air 08/13/23 08:00 08/13/23 07:54 08/13/23 07:17 08/13/23 07:12 145/56 H 93 Room Air Laboratory Results Laboratory Results - last 24 hr 08/13/23 05:46 WBC 7.18 RBC 3.18 L Hgb 9.3 L Hct 28.5 L MCV 89.6 MCH 29.2 MCHC 32.6 RDW Std Deviation 46.0 RDW Coeff of Jordi 14.0 Plt Count 195 MPV 10.5 Sodium 143 Potassium 3.0 L Chloride 115 H Carbon Dioxide 23 Anion Gap 5 BUN 4 L Creatinine 1.20 Est Cr Clr Drug Dosing 35.1 Est GFR ( Amer) 49.4 Est GFR (Non-Af Amer) 42.7 BUN/Creatinine Ratio 3.3 L Glucose 124 H Calcium 7.7 L Magnesium 1.4 L PG Care Time/CCT Total # of Minutes Spent Total Time Spent with Patient: Total time spent is greater than 50% in coordination of care (as documented) at patient's floor/unit and/or counseling patient: Coding Level of Care Code 04710 SUB INP/OBS CARE 235MIN Diagnoses Gallstones K80.20 Abdominal pain R10.30 Abdominal location: lower abdomen, unspecified Acute pancreatitis K85.90 Dilated pancreatic duct K86.89 Hypertension I10 GERD without esophagitis K21.9 Chronic kidney disease, stage III (moderate) N18.30 Chronic kidney disease stage 3 subtype: unspecified whether 3a or 3b Hypokalemia E87.6 Hypomagnesemia E83.42 (2) Abdominal pain Abdominal location: lower abdomen, unspecified Qualified Code(s): R10.30 - Lower abdominal pain, unspecified (7) Chronic kidney disease, stage III (moderate) Chronic kidney disease stage 3 subtype: unspecified whether 3a or 3b Qualified Code(s): N18.30 - Chronic kidney disease, stage 3 unspecified
[2023-08-13] MEDS ORDERED: D5W AND 1/2NSS + 20MEQ KCL 20 MEQ/1,000 ML BAG IV SCH (17:15)
[2023-08-13] MEDS: ONDANSETRON INJ 2 MG/ML 2 ML VIAL IV PRN (19:40)
[2023-08-13] MEDS: oxyCODONE/ACETAMINOPHEN 5mg/325mg TAB PO PRN (22:50)
[2023-08-13] MEDS: LORazepam 0.5 MG TAB PO PRN (22:50)
[2023-08-14] MEDS: METOPROLOL TARTRATE 1 MG/ML VIAL IV SCH ×7 (00:57→23:10)
[2023-08-14] MEDS: PIPERACILLIN/TAZOBACTAM 4.5 GM in DEXTROSE 5% MINI-B 100 ML IV SCH ×3 (00:57→17:13)
[2023-08-14] MEDS: hydrALAZINE HCL 20 MG/ML VIAL IV SCH ×3 (05:36→20:33)
[2023-08-14] MEDS: oxyCODONE/ACETAMINOPHEN 5mg/325mg TAB PO PRN (05:40)
[2023-08-14 07:17] LABS: Alanine Aminotransferase 13 U/L (7-52); Albumin Globulin Ratio 1.1 (0.9-2); Alkaline Phosphatase 37 U/L (34-104); Anion Gap 5 (3-11); BUN Creatinine Ratio 5.2 (10-20); Bilirubin,Total 0.5 mg/dl (0.2-1.0); Blood Urea Nitrogen 6 mg/dl (6-23); Calcium 8.3 mg/dl (8.6-10.3); Carbon Dioxide 20 mmol/L (21-32); Chloride 113 mmol/L (98-107); Creatinine Clr Calc Pharmacy 33.7 ml/min; Est GFR (Non-African American) 44.9 ml/min; Globulin 2.7 gm/dl (2.5-4.0); Glucose 128 mg/dl (70-99(Fasting)); Magnesium 1.9 mg/dl (1.7-2.4); Sodium 138 mmol/L (136-145); Total Protein 5.7 gm/dl (6.0-8.3)
[2023-08-14 07:55] LABS: Hematocrit (blood only) 30.9 % (37.0-47.0); Mean Corpuscular Hgb Conc 32.4 g/dL (32.0-36.0); Mean Corpuscular Volume 89.6 fL (80.0-100.0); Mean Platelet Volume 10.6 fL (9.4-12.4); Platelet Count 203 K/uL (130-400); RDW Coefficient of Variation 14.2 % (11.5-14.5); RDW Standard Deviation 45.9 fL (36.4-46.3); Red Blood Count 3.45 M/uL (4.20-5.40); White Blood Count 8.89 K/ul (4.8-10.8)
[2023-08-14 08:06] LABS: Potassium 3.4 mmol/L (3.5-5.1)
[2023-08-14] MEDS: HYDROmorphone INJ 1 MG/ML SYRINGE IV PRN (08:12)
[2023-08-14] MEDS: ONDANSETRON INJ 2 MG/ML 2 ML VIAL IV PRN ×2 (10:15→18:54)
[2023-08-14] MEDS: POTASSIUM CHLORIDE 20 MEQ in LACTATED RINGER'S 1,000 ML IV SCH ×2 (10:26→19:15)
[2023-08-14] MEDS ORDERED: PROMETHAZINE HCL 6.25 MG in SODIUM CHLORIDE 0.9% 50 ML IV STA (12:15)
--- NOTE | 2023-08-14 12:17 | Hospitalist Progress Note ---
Date of Service August 14, 2023 Assessment & Plan (1) Gallstones: Plan: with concern for acute cholecystitis POD #1 - s/p lap nick by Dr Ruggiero - appreciate his assistance path pending remains on IV zosyn but suspect we can d/c soon; however, hold off for now with her intractable nausea and emesis cont IV pain meds but lower the dose - getting large quantities of dilaudid - stop the 1mg and 0.5mg doses; lower to 0.25mg q6h prn cont IV fluids LFTs again stable today replace low K again (2) Nausea and vomiting: Plan: started this morning over her protracted hospitalization (day #9 of her stay today) she has had only 1 small stool and that was induced by use of dulcolax suppos she otherwise is passing limited flatus she is distended on examination today suspect she has ileus in the setting of an already poorly mobile GI tract (has h/o slow-transit constipation) check x-rays to r/o obstruction or impaction NPO zofran prn phenergan in tiny doses (6.25mg q6h) prn cont IV fluids unfortunately she has allergy or intolerance to H2 bruce and PPI thus add carafate 1gm qid await other recs from gen surg to ensure her nausea/emesis is not cardiac check an EKG (3) Abdominal pain: Plan: initially 2nd to acute pancreatitis which then biochemically resolved however, pain never fully resolved and ultimately settled in the RUQ - concerning for acute cholecystitis - see #1 above now POD #1 s/p lap nick (4) Acute pancreatitis: Plan: peak lipase level 487 on 08/05, with normal level 08/11. despite normalization her abdominal pain persisted. imaging on 08/11 concerning for acute cholecystitis. see above. (5) Dilated pancreatic duct: Plan: imaging especially her MRCP shows a dilated pancreatic duct. cause of such is uncertain. will need EUS/ERCP by [facility] in the outpatient setting in the near-future once the gall bladder has been taken care of. need to r/o stricture vs mass vs other cause of the ductal dilatation. (6) Hypertension: Plan: Oral BP medications including amlodipine, metoprolol and losartan on hold Cont IV lopressor 5mg q4h scheduled Cont scheduled hydralazine 10mg IV q8h Since she cannot take PO will keep IV anti-hypertensives on board for now. (7) GERD without esophagitis: Plan: Has allergy / intolerance to PPIs and H2 bruce carafate 1gm QID added see above (8) Chronic kidney disease, stage III (moderate): Plan: Stage 3B CrCl at baseline -- low 30s BMP am for stability (9) Hypokalemia: Plan: replace IV - give 20meq IV KCL x 1 basal IV fluids also has KCL in it repeat BMP am replaced low mag level now normal (10) Hypomagnesemia: Plan: replaced resolved Plan DVT proph - resume heparin SC 5000 BID updated by phone yesterday evening will update him again tonight Admission and Anticipated Discharge Date Admission Date: August 05, 2023 Subjective starting early this morning has had intractable nausea did not respond to zofran ordered small dose of IV phenergan I saw her a short time after she received the phenergan - nausea is better with such original RUQ abd pain from her acute cholecystitis is resolved; now just having mild incisional pain passing little flatus last stool was 08/10 or 08/11 - only 1 stool the entire hospitalization she has chronic constipation and takes multiple meds for such including Linzess has little appetite tried taking a few sips of liquids last pm and it "didn't go well" tele - wn overnight Review of Systems Review of Systems: cv - no chest pain pulm - no dyspnea, no cough GI - having some "heartburn"; takes tums at home prn for such; she isn't sure if she has ever taken pepcid gen - no fevers; weak Physical Exam Physical Exam: gen - NAD, but holding an emesis basis, is able to follow commands and answer questions mouth - MM more moist today neck - no JVD heart - RRR, s1 s2, no murmur lungs - CTA b/l abd - moderate distension, BS+ but decreased, tender RUQ (incisional pain), no peritoneal signs, abdominal incisions covered w/ clean dressings ext - no edema of ankles but mild dependent edema of hands, pulses 2+ b/l psych - a/o x 3 skin - no jaundice Results & Data Results & Data Vital Signs (Past 12 Hours) Vital Signs Temp Pulse Pulse Pulse Resp BP BP 08/14/23 11:17 36.5 C 69 16 08/14/23 09:31 65 151/65 H 08/14/23 09:28 65 151/65 H 08/14/23 08:13 73 166/69 H 08/14/23 08:04 36.8 C 73 17 08/14/23 05:35 70 08/14/23 03:37 36.9 C 74 18 08/14/23 01:48 70 08/14/23 00:57 68 BP Pulse Ox O2 Del Method 08/14/23 11:17 159/69 H 99 Room Air 08/14/23 09:31 08/14/23 09:28 08/14/23 08:13 08/14/23 08:04 166/69 H 98 Room Air 08/14/23 05:35 08/14/23 03:37 154/64 H 95 Room Air 08/14/23 01:48 08/14/23 00:57 Laboratory Results Laboratory Results - last 24 hr 08/14/23 08/14/23 06:20 07:36 WBC Cancelled 8.89 RBC Cancelled 3.45 L Hgb Cancelled 10.0 L Hct Cancelled 30.9 L MCV Cancelled 89.6 MCH Cancelled 29.0 MCHC Cancelled 32.4 RDW Std Deviation Cancelled 45.9 RDW Coeff of Jordi Cancelled 14.2 Plt Count Cancelled 203 MPV Cancelled 10.6 Absolute Nucleated RBC Cancelled Nucleated RBC % (auto) Cancelled Platelet Estimate Cancelled Sodium 138 Potassium TNP 3.4 L Chloride 113 H Carbon Dioxide 20 L Anion Gap 5 BUN 6 Creatinine 1.15 Est Cr Clr Drug Dosing 33.7 Est GFR ( Amer) 52.0 Est GFR (Non-Af Amer) 44.9 BUN/Creatinine Ratio 5.2 L Glucose 128 H Calcium 8.3 L Magnesium 1.9 Total Bilirubin 0.5 AST TNP 23 ALT 13 Alkaline Phosphatase 37 Total Protein 5.7 L Albumin 3.0 L Globulin 2.7 Albumin/Globulin Ratio 1.1 PG Care Time/CCT Total # of Minutes Spent Total Time Spent with Patient: Total time spent is greater than 50% in coordination of care (as documented) at patient's floor/unit and/or counseling patient: Coding Level of Care Code 80199 SUB INP/OBS CARE 2/35MIN Diagnoses Gallstones K80.20 Nausea and vomiting R11.2 Abdominal pain R10.30 Abdominal location: lower abdomen, unspecified Acute pancreatitis K85.90 Dilated pancreatic duct K86.89 Hypertension I10 GERD without esophagitis K21.9 Chronic kidney disease, stage III (moderate) N18.30 Chronic kidney disease stage 3 subtype: unspecified whether 3a or 3b Hypokalemia E87.6 Hypomagnesemia E83.42 (3) Abdominal pain Abdominal location: lower abdomen, unspecified Qualified Code(s): R10.30 - Lower abdominal pain, unspecified (8) Chronic kidney disease, stage III (moderate) Chronic kidney disease stage 3 subtype: unspecified whether 3a or 3b Qualified Code(s): N18.30 - Chronic kidney disease, stage 3 unspecified
--- NOTE | 2023-08-14 14:05 | Surgery Progress Note ---
Date of Service August 14, 2023 Assessment & Plan (1) Pancreatitis: Plan: discharge per medical team appt my clinic two weeks Admission and Anticipated Discharge Date Admission Date: August 05, 2023 Subjective c/o reflux taking po pain controlled Review of Systems Constitutional: no fever and no chills Respiratory: no cough and no dyspnea Cardiovascular: no chest pain Gastrointestinal: + abdominal pain and + heartburn; no franki sea and no vomiting Physical Exam Gastrointestinal (Abdomen): Inspection/Auscultation: abdomen normal to inspection and normal bowel sounds; abdomen not distended Percussion/Palpation: + abdomen tender and abdomen soft; no guarding and abdomen not rigid Results & Data Vital Signs (Past 12 Hours) Vital Signs Temp Pulse Pulse Pulse Resp BP BP 08/14/23 12:16 70 159/69 H 08/14/23 11:17 36.5 C 69 16 08/14/23 09:31 65 151/65 H 08/14/23 09:28 65 151/65 H 08/14/23 08:13 73 166/69 H 08/14/23 08:04 36.8 C 73 17 08/14/23 05:35 70 08/14/23 03:37 36.9 C 74 18 BP Pulse Ox O2 Del Method 08/14/23 12:16 08/14/23 11:17 159/69 H 99 Room Air 08/14/23 09:31 08/14/23 09:28 08/14/23 08:13 08/14/23 08:04 166/69 H 98 Room Air 08/14/23 05:35 08/14/23 03:37 154/64 H 95 Room Air (1) Pancreatitis Acute pancreatitis complication: unspecified Chronicity: acute Pancreatitis type: unspecified pancreatitis type Qualified Code(s): K85.90 - Acute pancreatitis without necrosis or infection, unspecified
[2023-08-14] MEDS: POTASSIUM CHLORIDE / WTR 10 MEQ/100 ML PLCT IV SCH ×2 (14:53→15:59)
[2023-08-14] MEDS: SUCRALFATE 1 GM/10 ML UDC PO SCH ×2 (15:59→20:36)
[2023-08-14] MEDS ORDERED: PROMETHAZINE HCL 6.25 MG in SODIUM CHLORIDE 0.9% 50 ML IV PRN (16:34)
[2023-08-14] MEDS ORDERED: HYDROmorphone INJ 0.5 MG/0.5 ML SYR IV PRN (18:13)
[2023-08-14] MEDS ORDERED: ACETAMINOPHEN 1,000 MG/100 ML VIAL IV PRN (18:14)
--- NOTE | 2023-08-14 20:13 | Hospitalist Progress Note ---
Date of Service August 15, 2023 Assessment & Plan (1) Gallstones: Plan: with concern for acute cholecystitis -- path report returned with chronic cholecystitis POD #2 - s/p lap nick by Dr Ruggiero - appreciate his assistance stop IV zosyn LFTs again stable today ileus improved/resolving cont clear diet as tolerated; hopefully can advance tomorrow (2) Nausea and vomiting: Plan: 2nd clinical & radiographic ileus improved today less nausea less vomiting passed numerous stools today multiple risk factors for ileus - recent acute pancreatitis, low K and low mag issues, poor mobility, prolonged hospitalization, surgery -- all in the setting of an already poorly mobile GI tract (has h/o slow-transit constipation) added reglan 5mg IV scheduled ac/hs stop phenergan zofran prn carafate + prevacid BID for GERD/upper GI symptoms re-eval tomorrow (3) Abdominal pain: Plan: initially 2nd to acute pancreatitis which then biochemically resolved however, pain never fully resolved and ultimately settled in the RUQ - concerning for cholecystitis - see #1 above now POD #2 s/p lap nick (4) Acute pancreatitis: Plan: resolved 2nd to gallstone or gall bladder sludge (5) Dilated pancreatic duct: Plan: imaging especially her MRCP shows a dilated pancreatic duct. cause of such is uncertain. will need EUS/ERCP by [facility] in the outpatient setting in the near-future once the gall bladder has been taken care of. need to r/o stricture vs mass vs other cause of the ductal dilatation. (6) Hypertension: Plan: resume amlodipine resume metoprolol cont to hold losartan stop IV lopressor cont scheduled hydralazine 10mg IV q8h likely resume the losartan tomorrow and stop IV hydralazine then (7) GERD without esophagitis: Plan: Has allergy / intolerance to PPIs and H2 bruce carafate 1gm QID added PPI is an intolerance (dizziness with protonix) will try prevacid 30mg BID (8) Chronic kidney disease, stage III (moderate): Plan: Stage 3B CrCl at baseline -- low 30s BMP again stable today (9) Hypokalemia: Plan: replaced resolved (10) Hypomagnesemia: Plan: replaced resolved Plan DVT proph - heparin SC 5000 BID updated by phone again this evening PT/OT if patient unable to advance diet beyond clears in the next 24 hours will start PPN however, she has had considerable IV fluids throughout her protracted stay, has b/l effusions on imaging, has gained considerable fluid weight - would have to do the PPN with caution Admission and Anticipated Discharge Date Admission Date: August 05, 2023 Subjective overnight she had vomiting once again still with nausea no bowel movement overnight I ordered a dulcolax suppos this am and she had a large stool with such she is trying to take sips of liquids but it is hard because of the nausea having mild incisional pain no worse than prior denies any dyspnea denies any chest pain denies orthopnea tele - stable, NSR is walking around the room per staff I performed a 2nd visit in the late afternoon and patient reports at least 4-5 stools since the morning her bloating is better - but still with nausea she did vomit up some of her jello after dinner Review of Systems Review of Systems: gen - no fevers cv - no PND/orthopnea/edema of legs GI - see HPI - no voiding issues pulm - no cough or dyspnea Physical Exam Physical Exam: gen - NAD, looks better than yesterday, looks more comfortable mouth - MMM neck - no JVD heart - RRR, s1 s2, no murmur lungs - CTA b/l but decreased BS bases abd - distension much improved today, BS+ and very active; minimal tenderness RUQ (incisional pain), no peritoneal signs, abdominal incisions covered w/ clean dressings ext - no edema of ankles but mild dependent edema of hands, pulses 2+ b/l psych - a/o x 3 Results & Data Results & Data Vital Signs (Past 12 Hours) Vital Signs Temp Pulse Pulse Pulse Pulse Resp BP 08/15/23 09:04 72 189/79 H 08/15/23 08:00 72 189/79 H 08/15/23 07:37 36.8 C 72 18 08/15/23 05:00 71 08/15/23 04:45 70 181/80 H 08/15/23 03:45 36.9 C 70 16 08/15/23 02:27 179/52 H 08/15/23 02:24 37.3 C 69 18 08/14/23 23:18 67 08/14/23 23:10 83 203/88 H 08/14/23 23:00 36.9 C 83 17 08/14/23 21:32 77 185/70 H 08/14/23 20:32 76 207/96 H 08/14/23 20:04 37.1 C 76 20 08/14/23 16:44 68 189/82 H 08/14/23 16:23 36.7 C 84 16 08/14/23 16:00 69 195/75 H 08/14/23 14:40 159/69 H 08/14/23 12:16 70 159/69 H 08/14/23 11:17 36.5 C 69 16 BP BP Pulse Ox O2 Del Method 08/15/23 09:04 08/15/23 08:00 08/15/23 07:37 186/79 H 189/79 H 97 Room Air 08/15/23 05:00 08/15/23 04:45 08/15/23 03:45 181/80 H 94 Room Air 08/15/23 02:27 08/15/23 02:24 179/52 H 94 Room Air 08/14/23 23:18 08/14/23 23:10 08/14/23 23:00 203/88 H 94 Room Air 08/14/23 21:32 08/14/23 20:32 08/14/23 20:04 207/96 H 97 Room Air 08/14/23 16:44 08/14/23 16:23 199/83 H 93 Room Air 08/14/23 16:00 08/14/23 14:40 08/14/23 12:16 08/14/23 11:17 159/69 H 99 Room Air Intake and Output 08/14/23 08/15/23 08/15/23 22:59 06:59 14:59 Intake Total 829 / 2419.25 440 / 2419.25 901 / 901 Output Total 425 / 425 Balance / 1993. 440 / 1993.25 901 / 901 Intake: IV 829 / 2179.25 200 / 2179.25 901 / 901 Acetaminophen 1,000 mg In 100 100 / 100 ml @ 400 mls/hr IV Q8H PRN Rx#: [id number] Piperacillin/Tazobactam 4.5 gm 100 / 300 100 / 300 In Dextrose 5% Mini-B 100 ml @ 25 mls/hr IV Q8H JAYLIN Rx#: [id number] Potassium Chloride / Wtr 10 meq 200 / 200 In 100 ml @ 100 mls/hr IV Q1H JAYLIN Rx#:[id number] Potassium Chloride 20 meq In 529 / 529 901 / 901 Lactated Ringer's 1,000 ml @ 60 mls/hr IV .[id number] JAYLIN Rx#: [id number] Oral 240 / 240 Output: Urine 425 / 425 Other: # Unmeasured Voids 1 Weight 67.5 kg Weight Measurement Method Built in [facility] Laboratory Results Laboratory Results - last 24 hr 08/15/23 06:34 WBC 9.99 RBC 3.40 L Hgb 9.9 L Hct 30.2 L MCV 88.8 MCH 29.1 MCHC 32.8 RDW Std Deviation 45.6 RDW Coeff of Jordi 14.0 Plt Count 221 MPV 10.3 Sodium 139 Potassium 3.7 Chloride 111 H Carbon Dioxide 22 Anion Gap 6 BUN 10 Creatinine 1.14 Est Cr Clr Drug Dosing 37.2 Est GFR ( Amer) 52.6 Est GFR (Non-Af Amer) 45.4 BUN/Creatinine Ratio 8.8 L Glucose 98 Calcium 8.2 L Total Bilirubin 0.4 Direct Bilirubin 0.1 AST 16 ALT 9 Alkaline Phosphatase 41 Total Protein 5.4 L Albumin 2.9 L Lipase 40 PG Care Time/CCT Total # of Minutes Spent Total Time Spent with Patient: Total time spent is greater than 50% in coordination of care (as documented) at patient's floor/unit and/or counseling patient: Coding Level of Care Code 62193 SUB INP/OBS CARE 3/50MIN Diagnoses Gallstones K80.20 Nausea and vomiting R11.2 Abdominal pain R10.30 Abdominal location: lower abdomen, unspecified Acute pancreatitis K85.90 Dilated pancreatic duct K86.89 Hypertension I10 GERD without esophagitis K21.9 Chronic kidney disease, stage III (moderate) N18.30 Chronic kidney disease stage 3 subtype: unspecified whether 3a or 3b Hypokalemia E87.6 Hypomagnesemia E83.42 (3) Abdominal pain Abdominal location: lower abdomen, unspecified Qualified Code(s): R10.30 - Lower abdominal pain, unspecified (8) Chronic kidney disease, stage III (moderate) Chronic kidney disease stage 3 subtype: unspecified whether 3a or 3b Qualified Code(s): N18.30 - Chronic kidney disease, stage 3 unspecified
[2023-08-14] MEDS: HEPARIN SOD 5,000 UNIT/0.5 ML VIAL SQ SCH (20:43)
[2023-08-15] MEDS: PIPERACILLIN/TAZOBACTAM 4.5 GM in DEXTROSE 5% MINI-B 100 ML IV SCH ×3 (02:34→17:11)
[2023-08-15] MEDS: METOPROLOL TARTRATE 1 MG/ML VIAL IV SCH ×4 (04:45→17:10)
[2023-08-15] MEDS: hydrALAZINE HCL 20 MG/ML VIAL IV SCH ×3 (05:09→20:43)
[2023-08-15 06:48] LABS: Hematocrit (blood only) 30.2 % (37.0-47.0); Hemoglobin 9.9 g/dl (12.0-16.0); Mean Corpuscular Hemoglobin 29.1 pg (25.0-34.0); Mean Corpuscular Hgb Conc 32.8 g/dL (32.0-36.0); Mean Corpuscular Volume 88.8 fL (80.0-100.0); Mean Platelet Volume 10.3 fL (9.4-12.4); Platelet Count 221 K/uL (130-400); RDW Standard Deviation 45.6 fL (36.4-46.3); White Blood Count 9.99 K/ul (4.8-10.8)
[2023-08-15 07:06] LABS: Albumin Level 2.9 gm/dl (3.4-5.0); BUN Creatinine Ratio 8.8 (10-20); Bilirubin Direct 0.1 mg/dl (0-0.2); Bilirubin,Total 0.4 mg/dl (0.2-1.0); Calcium 8.2 mg/dl (8.6-10.3); Creatinine Clr Calc Pharmacy 37.2 ml/min; Est GFR (African American) 52.6 ml/min; Est GFR (Non-African American) 45.4 ml/min; Potassium 3.7 mmol/L (3.5-5.1); Total Protein 5.4 gm/dl (6.0-8.3)
[2023-08-15] MEDS ORDERED: bisacodyL 10 MG SUPP PR STA (07:27)
[2023-08-15] MEDS: HEPARIN SOD 5,000 UNIT/0.5 ML VIAL SQ SCH ×2 (08:00→20:42)
[2023-08-15] MEDS: SUCRALFATE 1 GM/10 ML UDC PO SCH ×4 (08:00→20:42)
[2023-08-15] MEDS: amLODIPine BESYLATE 5 MG TAB PO SCH (09:05)
--- NOTE | 2023-08-15 09:08 | XRay Report ---
XR abdomen 2V w PA chest HISTORY: 78 years-old Female recent pancreatitis, recent lap nick, N/V acute has abdominal pain wit h nausea and vomiting COMPARISON: Chest radiograph 08/05/2023, CT 08/11/2023 TECHNIQUE: PA view of the chest with erect and supine views of the abdomen FINDINGS: Cardiac silhouette is unchanged. No pneumothorax. Small pleural effusions with mild bibasilar densiti es. The bones appear grossly intact. No free air. Nonobstructive bowel gas pattern. Right upper abdominal surgical clips. Scattered large and small bowel air-fluid levels. No acute fracture. Lumbar levoscoliosis. IMPRESSION: 1. Cardiomegaly without pulmonary edema. 2. Small pleural effusions with mild bibasilar atelectasis. 3. Suggested ileus. 4. No free air identified. ACT 112: Negative or not required by law. The above report was generated using voice recognition software. It may contain grammatical, syntax o r spelling errors. Electronically signed by: Devin Rich M.D. 08/15/2023 9:07 AM
[2023-08-15] MEDS: METOCLOPRAMIDE HCL INJ 5 MG/ML 2 ML VIAL IV SCH ×3 (11:34→20:43)
[2023-08-15] MEDS: POTASSIUM CHLORIDE 20 MEQ in LACTATED RINGER'S 1,000 ML IV SCH (14:08)
[2023-08-15] MEDS: METOPROLOL TARTRATE 50 MG TAB PO SCH (20:40)
[2023-08-15] MEDS: LANSOPRAZOLE 30 MG SOLTAB PO SCH (20:41)
[2023-08-15] MEDS: THIAMINE HCL 200 MG in SODIUM CHLORIDE 0.9% 50 ML IV SCH (21:27)
[2023-08-16] MEDS: hydrALAZINE HCL 20 MG/ML VIAL IV SCH (05:28)
[2023-08-16 07:09] LABS: BUN Creatinine Ratio 9.1 (10-20); Calcium 8.2 mg/dl (8.6-10.3); Creatinine Clr Calc Pharmacy 42.5 ml/min; Est GFR (African American) 62.4 ml/min; Est GFR (Non-African American) 53.8 ml/min
[2023-08-16 08:58] LABS: Magnesium 1.6 mg/dl (1.7-2.4)
[2023-08-16] MEDS: METOCLOPRAMIDE HCL INJ 5 MG/ML 2 ML VIAL IV SCH ×4 (09:15→20:39)
[2023-08-16] MEDS: METOPROLOL TARTRATE 50 MG TAB PO SCH ×2 (09:15→20:39)
[2023-08-16] MEDS: SUCRALFATE 1 GM/10 ML UDC PO SCH ×3 (09:15→20:39)
[2023-08-16] MEDS: HEPARIN SOD 5,000 UNIT/0.5 ML VIAL SQ SCH ×2 (09:16→20:38)
[2023-08-16] MEDS: THIAMINE HCL 200 MG in SODIUM CHLORIDE 0.9% 50 ML IV SCH ×2 (09:16→20:40)
[2023-08-16] MEDS: LOSARTAN POTASSIUM 50 MG TAB PO SCH (09:16)
[2023-08-16] MEDS: amLODIPine BESYLATE 5 MG TAB PO SCH (09:16)
[2023-08-16] MEDS: POTASSIUM CHLORIDE / WTR 10 MEQ/100 ML PLCT IV SCH ×3 (09:17→13:42)
[2023-08-16] MEDS: MAGNESIUM SULFATE / D5W 1 GM/100 ML BAG IV SCH ×2 (09:29→12:39)
--- NOTE | 2023-08-16 10:43 | Hospitalist Progress Note ---
Date of Service August 16, 2023 Assessment & Plan (1) Gallstones: Plan: POD #3 - s/p lap nick by Dr Ruggiero - appreciate his assistance stopped IV zosyn LFTs stable the entire stay path report returned with chronic cholecystitis ileus resolved advance diet to full liquids today, then low fat diet tomorrow (2) Nausea and vomiting: Plan: 2nd clinical & radiographic ileus resolved numerous stools last 24-36 hours multiple risk factors for ileus - recent acute pancreatitis, low K and low mag issues, poor mobility, prolonged hospitalization, surgery -- all in the setting of an already poorly mobile GI tract (has h/o slow-transit constipation) remains on reglan 5mg IV scheduled ac/hs - cont today, then try and d/c tomorrow zofran prn carafate + prevacid BID for GERD/upper GI symptoms (3) Abdominal pain: Plan: initially 2nd to acute pancreatitis which then biochemically resolved however, pain never fully resolved and ultimately settled in the RUQ - concerning for cholecystitis - see #1 above now POD #3 s/p lap nick (4) Acute pancreatitis: Plan: resolved 2nd to gallstone or gall bladder sludge (5) Dilated pancreatic duct: Plan: imaging especially her MRCP shows a dilated pancreatic duct. cause of such is uncertain. will need EUS/ERCP by [facility] in the outpatient setting in the near-future once the gall bladder has been taken care of. need to r/o stricture vs mass vs other cause of the ductal dilatation. (6) Hypertension: Plan: cont amlodipine 10mg qam cont metoprolol 50mg BID resume losartan 100mg daily stopped all scheduled IV BP meds follow BPs (7) GERD without esophagitis: Plan: Has allergy / intolerance to PPIs and H2 bruce carafate 1gm QID added PPI is an intolerance (dizziness with protonix) added prevacid 30mg BID and thus far tolerating such (8) Chronic kidney disease, stage III (moderate): Plan: Stage 3B CrCl at baseline -- low 30s BMP again stable today (9) Hypokalemia: Plan: replace and repeat level am replace low mag (10) Hypomagnesemia: Plan: replace with IV mag again and repeat level am (11) Weight gain: Plan: has had significant weight gain in the hospital imaging with pleural effusions, etc effusions likely due to 3rd spacing albumin is <3 tomorrow will give lasix IV and start to remove some of this volume consider echo but I don't think this is from CHF Plan DVT proph - heparin SC 5000 BID updated by phone again this evening cont PT/OT dispo - rehab? home with HH? Admission and Anticipated Discharge Date Admission Date: August 05, 2023 Subjective tele overnight wnl NSR no vomiting last pm or today thus far just minimal nausea tolerating clears minimal RUQ abd pain she overall feels better ambulating to bathroom moving bowels Review of Systems Review of Systems: cv - no chest pain, no orthopnea pulm - denies dyspnea on exertion GI - no further reflux symptoms neuro - no dizziness Physical Exam Physical Exam: gen - NAD, looks well today mouth - MMM neck - no JVD heart - RRR, s1 s2, no murmur lungs - CTA b/l but decreased BS bases abd - soft, mild incisional tenderness only, ND, no HSM, no peritoneal signs ext - no edema of ankles but mild dependent edema of hands, pulses 2+ b/l psych - a/o x 3 skin - dressings intact RUQ from recent lap nick Results & Data Results & Data Vital Signs (Past 12 Hours) Vital Signs Temp Pulse Pulse Resp BP BP Pulse Ox 08/16/23 07:38 37.0 C 68 18 171/63 H 94 08/16/23 03:25 36.7 C 67 18 185/73 H 95 08/16/23 00:17 66 08/15/23 22:58 36.8 C 64 18 172/73 H 94 O2 Del Method 08/16/23 07:38 Room Air 08/16/23 03:25 Room Air 08/16/23 00:17 08/15/23 22:58 Room Air Laboratory Results Laboratory Results - last 24 hr 08/16/23 05:43 Sodium 139 Potassium 3.0 L Chloride 108 H Carbon Dioxide 23 Anion Gap 8 BUN 9 Creatinine 0.99 Est Cr Clr Drug Dosing 42.5 Est GFR ( Amer) 62.4 Est GFR (Non-Af Amer) 53.8 BUN/Creatinine Ratio 9.1 L Glucose 90 Calcium 8.2 L Magnesium 1.6 L PG Care Time/CCT Total # of Minutes Spent Total Time Spent with Patient: Total time spent is greater than 50% in coordination of care (as documented) at patient's floor/unit and/or counseling patient: Coding Level of Care Code 22952 SUB INP/OBS CARE 2MIN Diagnoses Gallstones K80.20 Nausea and vomiting R11.2 Abdominal pain R10.30 Abdominal location: lower abdomen, unspecified Acute pancreatitis K85.90 Dilated pancreatic duct K86.89 Hypertension I10 GERD without esophagitis K21.9 Chronic kidney disease, stage III (moderate) N18.30 Chronic kidney disease stage 3 subtype: unspecified whether 3a or 3b Hypokalemia E87.6 Hypomagnesemia E83.42 Weight gain R63.5 (3) Abdominal pain Abdominal location: lower abdomen, unspecified Qualified Code(s): R10.30 - Lower abdominal pain, unspecified (8) Chronic kidney disease, stage III (moderate) Chronic kidney disease stage 3 subtype: unspecified whether 3a or 3b Qualified Code(s): N18.30 - Chronic kidney disease, stage 3 unspecified
[2023-08-16] MEDS: LANSOPRAZOLE 30 MG SOLTAB PO SCH ×2 (11:50→20:39)
[2023-08-16] MEDS ORDERED: ACETAMINOPHEN 500 MG TAB PO PRN (17:55)
--- NOTE | 2023-08-16 22:12 | Electrocardiogram Report ---
Test Reason : Blood Pressure : / mmHG Vent. Rate : 074 BPM Atrial Rate : 074 BPM P-R Int : 154 ms QRS Dur : 072 ms QT Int : 370 ms P-R-T Axes : 017 035 104 degrees QTc Int : 410 ms Normal sinus rhythm Nonspecific T wave abnormality Abnormal ECG When compared with ECG of 05-AUG-2023 15:05, Premature supraventricular complexes are no longer Present Nonspecific T wave abnormality has replaced inverted T waves in Lateral leads Confirmed by Brendan Poole ([id number] on 08/16/2023 10:12:23 PM Referred By: REFERRED SELF Confirmed By:Brendan Poole
--- NOTE | 2023-08-16 22:46 | Electrocardiogram Report ---
Test Reason : Blood Pressure : / mmHG Vent. Rate : 070 BPM Atrial Rate : 070 BPM P-R Int : 166 ms QRS Dur : 068 ms QT Int : 388 ms P-R-T Axes : 008 042 093 degrees QTc Int : 419 ms Sinus rhythm with Premature supraventricular complexes Nonspecific T wave abnormality When compared with ECG of 14-AUG-2023 15:15, Premature supraventricular complexes are now Present Confirmed by Brendan Poole ([id number] on 08/16/2023 10:46:37 PM Referred By: REFERRED SELF Confirmed By:Brendan Poole
[2023-08-17] MEDS: LORazepam 0.5 MG TAB PO PRN (03:24)
[2023-08-17] MEDS ORDERED: hydrALAZINE HCL 20 MG/ML VIAL IV STA (04:39)
[2023-08-17] MEDS ORDERED: hydrALAZINE HCL 20 MG/ML VIAL ONE (05:02)
[2023-08-17] MEDS ORDERED: FUROSEMIDE INJ 20 MG/2 ML VIAL IV ONE (08:59)
[2023-08-17] MEDS: SUCRALFATE 1 GM/10 ML UDC PO SCH ×4 (09:38→21:38)
[2023-08-17] MEDS: HEPARIN SOD 5,000 UNIT/0.5 ML VIAL SQ SCH ×2 (09:38→21:39)
[2023-08-17] MEDS: THIAMINE HCL 200 MG in SODIUM CHLORIDE 0.9% 50 ML IV SCH ×2 (09:38→21:39)
[2023-08-17] MEDS: METOCLOPRAMIDE HCL INJ 5 MG/ML 2 ML VIAL IV SCH ×2 (09:38→12:39)
[2023-08-17] MEDS: METOPROLOL TARTRATE 50 MG TAB PO SCH ×2 (09:39→21:38)
[2023-08-17] MEDS: amLODIPine BESYLATE 5 MG TAB PO SCH (09:39)
[2023-08-17] MEDS: LANSOPRAZOLE 30 MG SOLTAB PO SCH ×2 (09:39→21:38)
[2023-08-17] MEDS: LOSARTAN POTASSIUM 50 MG TAB PO SCH (09:39)
[2023-08-17] MEDS: POTASSIUM CHLORIDE CRTAB 20 MEQ TABCR PO SCH ×3 (09:46→21:38)
[2023-08-17] MEDS: MAGNESIUM OXIDE 400 MG TAB PO SCH ×2 (10:07→21:38)
[2023-08-17 11:20] LABS: BUN Creatinine Ratio 7.8 (10-20); Calcium 8.9 mg/dl (8.6-10.3); Est GFR (African American) 60.2 ml/min; Est GFR (Non-African American) 51.9 ml/min; Magnesium 1.9 mg/dl (1.7-2.4)
[2023-08-17] MEDS: SPIRONOLACTONE 12.5 MG TAB PO SCH (12:41)
[2023-08-17] MEDS ORDERED: METOCLOPRAMIDE HCL INJ 5 MG/ML 2 ML VIAL IV PRN (15:17)
[2023-08-17] MEDS ORDERED: LORazepam 0.5 MG TAB PO PRN (15:17)
--- NOTE | 2023-08-17 15:18 | Hospitalist Progress Note ---
Date of Service August 17, 2023 Assessment & Plan (1) Gallstones: Plan: POD #4 - s/p lap nick by Dr Ruggiero - appreciate his assistance LFTs stable the entire stay path report returned with chronic cholecystitis ileus resolved advanced diet to low fat diet and tolerating such making nice recovery from her lap nick (2) Nausea and vomiting: Plan: 2nd clinical & radiographic ileus resolved numerous stools last 48 hours multiple risk factors for ileus - recent acute pancreatitis, low K and low mag issues, poor mobility, prolonged hospitalization, surgery -- all in the setting of an already poorly mobile GI tract (has h/o slow-transit constipation) remains on reglan 5mg IV scheduled ac/hs - change to PRN dosing zofran prn carafate + prevacid BID for GERD/upper GI symptoms (3) Abdominal pain: Plan: present on admission --> initially 2nd to acute pancreatitis which then bio chemically resolved however, pain never fully resolved and ultimately settled in the RUQ - concerning for cholecystitis - see #1 above now POD #4 s/p lap nick (4) Acute pancreatitis: Plan: resolved 2nd to gallstone or gall bladder sludge (5) Dilated pancreatic duct: Plan: imaging especially her MRCP shows a dilated pancreatic duct. cause of such is uncertain. will need EUS/ERCP by [facility] in the outpatient setting in the near-future once the gall bladder has been taken care of. need to r/o stricture vs mass vs other cause of the ductal dilatation. (6) Hypertension: Plan: cont amlodipine 10mg qam cont metoprolol 50mg BID cont losartan 100mg daily stopped all scheduled IV BP meds BPs still high EVERY BP since admission has been high patient reports she often has high readings in medical settings her BPs at home run 120-130 systolic I am reluctant to be overly aggressive with BPs as she is not symptomatic from them will add low-dose aldactone - this will help with diuresis and help with keeping potassium level in normal range (7) GERD without esophagitis: Plan: Has allergy / intolerance to PPIs and H2 bruce carafate 1gm QID added PPI is an intolerance (dizziness with protonix) added prevacid 30mg BID and thus far tolerating such (8) Chronic kidney disease, stage III (moderate): Plan: Stage 3B CrCl at baseline -- low 30s BMP again stable today repeat BMP am (9) Hypokalemia: Plan: replace repeat BMP am mag noted to be normal today adding aldactone (10) Hypomagnesemia: Plan: replaced resolved (11) Weight gain: Plan: has had significant weight gain in the hospital imaging with pleural effusions, etc effusions likely due to 3rd spacing albumin is <3 lasix 20mg IV x 1 will obtain echo in am but I don't think this is from CHF Plan DVT proph - heparin SC 5000 BID updated by phone again this evening cont PT/OT dispo - rehab? home with HH? should be ready for d/c home - hopefully 08/19/23 Admission and Anticipated Discharge Date Admission Date: August 05, 2023 Subjective no nausea or emesis minimal surgical/incisional abd pain tolerating solids appetite has improved moving her bowels no bloating ambulating in bathroom tele overnight wnl only complaint is that of a cough but she denies dyspnea at rest or dyspnea with walking to bathroom Review of Systems Review of Systems: gen - no fevers cv - no chest pain pulm - no significant sputum Physical Exam Physical Exam: gen - NAD, best she has looked this week mouth - MMM neck - no JVD heart - RRR, s1 s2, no murmur lungs - CTA b/l; no rales; decreased BS in the bases only abd - soft, NT, ND, no HSM, no peritoneal signs ext - no edema of ankles; dependent edema of hands improved, pulses 2+ b/l psych - a/o x 3 skin - dressings intact RUQ from recent lap nick Results & Data Results & Data Vital Signs (Past 12 Hours) Vital Signs Temp Pulse Pulse Pulse Resp BP BP 08/17/23 11:44 36.6 C 71 96 H 16 182/72 H 08/17/23 07:23 37.2 C 81 17 181/76 H 08/17/23 04:31 190/77 H 08/17/23 03:33 37.0 C 63 17 200/79 H Pulse Ox O2 Del Method 08/17/23 11:44 96 Room Air 08/17/23 07:23 95 Room Air 08/17/23 04:31 08/17/23 03:33 97 Room Air Laboratory Results Laboratory Results - last 24 hr 08/17/23 10:34 Sodium 140 Potassium 3.0 L Chloride 107 Carbon Dioxide 25 Anion Gap 8 BUN 8 Creatinine 1.02 Est Cr Clr Drug Dosing 38.0 Est GFR ( Amer) 60.2 Est GFR (Non-Af Amer) 51.9 BUN/Creatinine Ratio 7.8 L Glucose 137 H Calcium 8.9 Magnesium 1.9 PG Care Time/CCT Total # of Minutes Spent Total Time Spent with Patient: Total time spent is greater than 50% in coordination of care (as documented) at patient's floor/unit and/or counseling patient: Coding Level of Care Code 58202 SUB INP/OBS CARE 2/35MIN Diagnoses Gallstones K80.20 Nausea and vomiting R11.2 Abdominal pain R10.30 Abdominal location: lower abdomen, unspecified Acute pancreatitis K85.90 Dilated pancreatic duct K86.89 Hypertension I10 GERD without esophagitis K21.9 Chronic kidney disease, stage III (moderate) N18.30 Chronic kidney disease stage 3 subtype: unspecified whether 3a or 3b Hypokalemia E87.6 Hypomagnesemia E83.42 Weight gain R63.5 (3) Abdominal pain Abdominal location: lower abdomen, unspecified Qualified Code(s): R10.30 - Lower abdominal pain, unspecified (8) Chronic kidney disease, stage III (moderate) Chronic kidney disease stage 3 subtype: unspecified whether 3a or 3b Qualified Code(s): N18.30 - Chronic kidney disease, stage 3 unspecified
[2023-08-17] MEDS: LORazepam 0.5 MG TAB PO SCH (21:38)
[2023-08-18 07:02] LABS: BUN Creatinine Ratio 10.1 (10-20); Calcium 8.9 mg/dl (8.6-10.3); Creatinine Clr Calc Pharmacy 39.1 ml/min; Est GFR (African American) 62.4 ml/min; Est GFR (Non-African American) 53.8 ml/min; Magnesium 1.8 mg/dl (1.7-2.4); Potassium 3.5 mmol/L (3.5-5.1)
[2023-08-18] MEDS ORDERED: FUROSEMIDE INJ 20 MG/2 ML VIAL IV ONE (08:16)
[2023-08-18] MEDS: THIAMINE HCL 200 MG in SODIUM CHLORIDE 0.9% 50 ML IV SCH ×2 (09:38→21:24)
[2023-08-18] MEDS: POTASSIUM CHLORIDE CRTAB 20 MEQ TABCR PO SCH ×3 (09:38→21:23)
[2023-08-18] MEDS: SUCRALFATE 1 GM/10 ML UDC PO SCH ×4 (09:38→21:23)
[2023-08-18] MEDS: LANSOPRAZOLE 30 MG SOLTAB PO SCH ×2 (09:38→21:23)
[2023-08-18] MEDS: amLODIPine BESYLATE 5 MG TAB PO SCH (09:42)
[2023-08-18] MEDS: LOSARTAN POTASSIUM 50 MG TAB PO SCH (09:42)
[2023-08-18] MEDS: SPIRONOLACTONE 12.5 MG TAB PO SCH (09:42)
[2023-08-18] MEDS: MAGNESIUM OXIDE 400 MG TAB PO SCH ×2 (09:42→21:23)
[2023-08-18] MEDS: HEPARIN SOD 5,000 UNIT/0.5 ML VIAL SQ SCH ×2 (09:42→21:22)
[2023-08-18] MEDS: METOPROLOL TARTRATE 50 MG TAB PO SCH ×2 (10:18→21:23)
--- NOTE | 2023-08-18 12:19 | XCELERA ---
[id number] [id number]
--- NOTE | 2023-08-18 14:05 | Hospitalist Progress Note ---
Date of Service August 18, 2023 Assessment & Plan (1) Gallstones: Plan: POD #5 - s/p lap nick by Dr Ruggiero - appreciate his assistance LFTs stable the entire stay path report returned with chronic cholecystitis ileus resolved tolerating low fat diet (2) Nausea and vomiting: Plan: 2nd clinical & radiographic ileus resolved (3) Abdominal pain: Plan: present on admission --> initially 2nd to acute pancreatitis which then biochemically resolved however, pain never fully resolved and ultimately settled in the RUQ - concerning for cholecystitis - see #1 above now POD #5 s/p lap nick (4) Acute pancreatitis: Plan: resolved 2nd to gallstone or gall bladder sludge (5) Dilated pancreatic duct: Plan: imaging especially her MRCP shows a dilated pancreatic duct. cause of such is uncertain. will need EUS/ERCP by [facility] in the outpatient setting in the near-future once the gall bladder has been taken care of. need to r/o stricture vs mass vs other cause of the ductal dilatation. (6) Hypertension: Plan: cont amlodipine 10mg qam cont metoprolol 50mg BID cont losartan 100mg daily BPs still high EVERY BP since admission has been high patient reports she often has high readings in medical settings c/w white-coat HTN her BPs at home run 120-130 systolic I am reluctant to be overly aggressive with BPs as she is not symptomatic from them with that said added low-dose aldactone - increase to 25mg from 12.5mg (7) GERD without esophagitis: Plan: cont prevacid 30mg BID - tolerating cont carafate QID (8) Chronic kidney disease, stage III (moderate): Plan: Stage 3B CrCl at baseline -- low 30s BMP stable repeat BMP am (9) Hypokalemia: Plan: replaced resolved (10) Hypomagnesemia: Plan: replaced resolved (11) Weight gain: Plan: has had significant weight gain in the hospital imaging with pleural effusions, etc effusions likely due to 3rd spacing albumin is <3 lasix 20mg IV x 1 again today cont aldactone - increase to 25mg echo today - LV function wnl Plan DVT proph - heparin SC 5000 BID updated by phone yesterday evening daughter updated at bedside cont PT/OT should be ready for d/c home - hopefully 08/19/23 needs PT/OT evals 1 more time Admission and Anticipated Discharge Date Admission Date: August 05, 2023 Subjective tele overnight wnl feels good dyspnea resolved eating well no n/v/abd pain +stools pt reports she has been taking 40mg of PO lasix at home pre-hospitalization Review of Systems Review of Systems: cv - no orthopnea, no edema, no chest pain pulm - no dyspnea; no [facility] - no abd pain/nausea/emesis Physical Exam Physical Exam: gen - NAD, looks well mouth - MMM neck - no JVD heart - RRR, s1 s2, no murmur lungs - CTA b/l; decreased BS in the bases only abd - soft, NT, ND, no HSM, no peritoneal signs ext - no edema of ankles; pulses 2+ b/l psych - a/o x 3 skin - dressings intact RUQ from recent lap nick Results & Data Results & Data Vital Signs (Past 12 Hours) Vital Signs Temp Pulse Pulse Resp BP Pulse Ox O2 Del Method 08/18/23 11:34 36.8 C 80 16 177/75 H 97 Room Air 08/18/23 07:59 36.8 C 65 16 194/79 H 96 Room Air 08/18/23 03:16 36.6 C 67 18 195/82 H 97 Room Air Laboratory Results Laboratory Results - last 24 hr 08/18/23 06:12 Sodium 140 Potassium 3.5 Chloride 106 Carbon Dioxide 26 Anion Gap 8 BUN 10 Creatinine 0.99 Est Cr Clr Drug Dosing 39.1 Est GFR ( Amer) 62.4 Est GFR (Non-Af Amer) 53.8 BUN/Creatinine Ratio 10.1 Glucose 101 H Calcium 8.9 Magnesium 1.8 PG Care Time/CCT Total # of Minutes Spent Total Time Spent with Patient: Total time spent is greater than 50% in coordination of care (as documented) at patient's floor/unit and/or counseling patient: Coding Level of Care Code 76931 SUB INP/OBS CARE 2/35MIN Diagnoses Gallstones K80.20 Nausea and vomiting R11.2 Abdominal pain R10.30 Abdominal location: lower abdomen, unspecified Acute pancreatitis K85.90 Dilated pancreatic duct K86.89 Hypertension I10 GERD without esophagitis K21.9 Chronic kidney disease, stage III (moderate) N18.30 Chronic kidney disease stage 3 subtype: unspecified whether 3a or 3b Hypokalemia E87.6 Hypomagnesemia E83.42 Weight gain R63.5 (3) Abdominal pain Abdominal location: lower abdomen, unspecified Qualified Code(s): R10.30 - Lower abdominal pain, unspecified (8) Chronic kidney disease, stage III (moderate) Chronic kidney disease stage 3 subtype: unspecified whether 3a or 3b Qualified Code(s): N18.30 - Chronic kidney disease, stage 3 unspecified
[2023-08-18] MEDS ORDERED: SPIRONOLACTONE 12.5 MG TAB PO ONE (16:24)
[2023-08-18] MEDS ORDERED: MELATONIN 3 MG TAB PO PRN (19:27)
[2023-08-18] MEDS: LORazepam 0.5 MG TAB PO SCH (21:24)
[2023-08-19 07:13] LABS: BUN Creatinine Ratio 11.9 (10-20); Calcium 9.3 mg/dl (8.6-10.3); Creatinine Clr Calc Pharmacy 32.8 ml/min; Est GFR (African American) 50.4 ml/min; Est GFR (Non-African American) 43.5 ml/min; Magnesium 1.9 mg/dl (1.7-2.4); Potassium 4.1 mmol/L (3.5-5.1)
[2023-08-19] MEDS ORDERED: FUROSEMIDE 40 MG TAB PO SCH (09:00)
[2023-08-19] MEDS ORDERED: THIAMINE HCL 100 MG TAB PO SCH (09:00)
[2023-08-19] MEDS: METOPROLOL TARTRATE 50 MG TAB PO SCH (09:13)
[2023-08-19] MEDS: SUCRALFATE 1 GM/10 ML UDC PO SCH ×2 (09:13→13:04)
[2023-08-19] MEDS: MAGNESIUM OXIDE 400 MG TAB PO SCH (09:13)
[2023-08-19] MEDS: SPIRONOLACTONE 12.5 MG TAB PO SCH (09:13)
[2023-08-19] MEDS: HEPARIN SOD 5,000 UNIT/0.5 ML VIAL SQ SCH (09:13)
[2023-08-19] MEDS: POTASSIUM CHLORIDE CRTAB 20 MEQ TABCR PO SCH (09:13)
[2023-08-19] MEDS: amLODIPine BESYLATE 5 MG TAB PO SCH (09:14)
[2023-08-19] MEDS: LOSARTAN POTASSIUM 50 MG TAB PO SCH (09:14)
[2023-08-19] MEDS: LANSOPRAZOLE 30 MG SOLTAB PO SCH (09:36)
--- NOTE | 2023-08-19 12:55 | Discharge Summary ---
Date of Service August 19, 2023 Admission HPI Per Admitting Provider Marisel is a 77 year old female with a PMH significant for HTN, stage III CKD, anemia, fibromyalgia, sow transit constipation, and GERD who presented to the [facility] ED on 08/05 with complaints of right sided flank/abd pain. She was noted to be hypertensive on arrival at 211/95 but otherwise stable. Labs were significant for a lipase of 487. CT of the abd/pelvis wo con was read as "1. No renal or ureteral stones. No hydronephrosis. 2. No bowel wall thickening or obstruction. 3. Colonic diverticulosis. No evidence for acute diverticulitis. 4. There is sludge within the gallbladder, unchanged. No gallbladder wall thickening. 5. Mild dilatation of main pancreatic duct which has progressed in the interval. This measures up to 4.5 mm in diameter. Follow-up GI consultation recommended for further evaluation. ". The ED staff spoke with [facility] who is coordinating with [facility] for likely ERCP tomorrow. Prior to admission the patient was given 2gm IV morphine, 4 mg IV zofran, and 500 mL NSS. At the time of the exam the patient was sitting in bed in no acute distress with her and daughter sitting bedside. She states that she was in her normal state of health when she develop acute onset of 8/10, dull/aching RUQ/right flank pain which woke her from sleep on 08/03. Since then the pain has been constant. She denies radiation of the pain to other areas of her body. She has not had much to eat or drink since the onset of the pain, she does not think that eating exacerbates the pain. Her pain continued overnight and was severe this am causing them to come to the ED for evaluation. She did not have her am meds today prior to arrival. She states that the dose of morphine she received at the time of my exam is starting to kick in and reduce her pain. She denies recent fever, chills, chest pain, nausea, vomiting, changes in bowel habits, dysuria, hematuria, melena, worsening LE swelling, and recent trauma. She did have a lumbar spine pain injection last week but denies any complications after. She is a full code and would want her daughter and to make medical decisions for her if she cannot make them herself. She denies tobacco and alcohol use and denies a previous history of compilations with her pancreas. Please refer to Dr. Jeffers's attestation for any changes to the treatment plan Discharge Exam gen - NAD, looks well mouth - MMM neck - no JVD heart - RRR, s1 s2, no murmur lungs - CTA b/l; decreased BS in the bases only abd - soft, NT, ND, no HSM, no peritoneal signs ext - no edema of ankles; pulses 2+ b/l psych - a/o x 3 skin - dressings intact RUQ from recent lap nick Discharge Data Allergies Allergy/AdvReac Type Severity Reaction Status Date / Time atropine [From ] Allergy Intermediate Hives Verified 08/05/23 16:36 cimetidine [From Tagamet] Allergy Intermediate Hives Verified 08/05/23 16:36 hyoscyamine [From ] Allergy Intermediate Hives Verified 08/05/23 16:36 Iodinated Contrast Media Allergy Intermediate Hives Verified 08/05/23 16:36 [Iodinated Contrast- Oral and IV Dye] nitrofurantoin Allergy Intermediate Rash Verified 08/05/23 16:36 [From Macrobid] phenobarbital [From ] Allergy Intermediate Hives Verified 08/05/23 16:36 regadenoson Allergy Intermediate loss of Verified 08/05/23 16:36 vision, low Blood pressure scopolamine [From ] Allergy Intermediate Hives Verified 08/05/23 16:36 ketoprofen [From Orudis] Allergy Mild Rash Verified 08/05/23 16:36 duloxetine [From Cymbalta] AdvReac Intermediate Swelling Verified 08/05/23 16:36 diltiazem AdvReac Mild Hallucinati Verified 08/05/23 16:36 ng doxepin AdvReac Mild Hallucinati Verified 08/05/23 16:36 ng doxycycline AdvReac Mild Heartburn Verified 08/05/23 16:36 hydrocodone AdvReac Mild Dizziness Verified 08/05/23 16:36 lisinopril [From Zestril] AdvReac Mild Swelling Verified 08/05/23 16:36 pantoprazole [From Protonix] AdvReac Mild Dizziness Verified 08/05/23 16:36 Consultations 08/05/23 14:04 ED Decision to Admit Stat 08/05/23 15:07 Consult Gastroenterology Routine 08/11/23 13:15 Consult General Surgery Routine Procedures Performed Operation Date: 08/13/23 10:40 Actual Procedures p Laparoscopic Cholecystectomy(Not Applicable) - Alvin Ruggiero MD Ordered Studies 08/05/23 10:22 CT stones [CT abd pelvis wo con] Stat 08/05/23 14:46 MR MRCP Stat 08/11/23 10:22 CT Abd and Pelvis [CT abd pelvis wo con] Stat 08/11/23 12:16 US RUQ [US liver] Urgent Hospital Course (1) Gallstones: POD #5 - s/p lap nick by Dr Ruggiero - appreciate his assistance LFTs stable the entire stay path report returned with chronic cholecystitis ileus resolved tolerating low fat diet (2) Nausea and vomitinnd clinical & radiographic ileus resolved (3) Abdominal pain: present on admission --> initially 2nd to acute pancreatitis which then biochemically resolved however, pain never fully resolved and ultimately settled in the RUQ - concerning for cholecystitis - see #1 above now POD #5 s/p lap nick (4) Acute pancreatitis: resolved 2nd to gallstone or gall bladder sludge (5) Dilated pancreatic duct: imaging especially her MRCP shows a dilated pancreatic duct. cause of such is uncertain. will need EUS/ERCP by [facility] in the outpatient setting in the near-future once the gall bladder has been taken care of. need to r/o stricture vs mass vs other cause of the ductal dilatation. (6) Hypertension: cont amlodipine 10mg qam cont metoprolol 50mg BID cont losartan 100mg daily BPs still high EVERY BP since admission has been high patient reports she often has high readings in medical settings c/w white-coat HTN her BPs at home run 120-130 systolic I am reluctant to be overly aggressive with BPs as she is not symptomatic from them with that said added low-dose aldactone - increase to 25mg from 12.5mg (7) GERD without esophagitis: cont prevacid 30mg BID - tolerating cont carafate QID (8) Chronic kidney disease, stage III (moderate): Stage 3B CrCl at baseline -- low 30s BMP stable repeat BMP am (9) Hypokalemia: replaced resolved (10) Hypomagnesemia: replaced resolved (11) Weight gain: has had significant weight gain in the hospital imaging with pleural effusions, etc effusions likely due to 3rd spacing albumin is <3 lasix 20mg IV x 1 again today cont aldactone - increase to 25mg echo today - LV function wnl Plan DVT proph - heparin SC 5000 BID updated by phone yesterday evening daughter updated at bedside cont PT/OT should be ready for d/c home - hopefully 08/19/23 needs PT/OT evals 1 more time Discharge Plan Discharge Items Patient Disposition: Home - Self-Care Reason For Visit: ACUTE PANCREATITIS Discharge Diagnosis: 1. acute pancreatitis likely due to passed gallstone or gall bladder sludge 2. chronic cholecystitis (chronically inflamed gall bladder with gallstones & sludge) - laparoscopic cholecystectomy by Dr Alvin Ruggiero 3. possible ileus - resolved; was likely due to your pancreatitis as well as narcotics and low potassium/low magnesium 4. chronic constipation 5. high blood pressure 6. fluid overload - resolved with diuretics 7. dilated pancreatic duct - follow-up with [facility] for this - additional tests needed 8. low potassium & low magnesium - resolved Activity: Per Instructions section Lifting: No more than 25 pounds Bathing: No limitations Sexual Activity: When tolerated Exercise/Sports: Wait until after follow-up appointment Driving/Machine Use: Resume 3 days after discharge Weightbearing: Full weightbearing Non-emergency contact: Primary Care Provider, Surgeon and Extractor And Wringer Operator Call non-emergency contact if: your pain is unusual for you, you have a fever, your wound has increased redness, your wound has increased drainage and your wound pain has increased Follow-up/Referrals: Alvin Ruggiero MD [Physician] - 08/22/23 9:30 am (7-10 days ) Peter Stark [Primary Care Provider] - 08/26/23 9:20 am (5-7 days ) Aida Rashid CRNP [Nurse Practitioner] - 10/07/23 ([facility]. Please call [facility] office with any questions pertaining to this procedure. ) Diet: Heart Healthy and Low Fat Addtl Attending Provider Instructions: Marito Zamudio were admitted to the hospital with abdominal pain that was due to acute pancreatitis. This is when the pancreas becomes inflamed. The top 2 causes of pancreatitis include alcohol abuse and gallstones/gall bladder sludge. You likely passed a small gallstone or some sludge that caused the pancreatitis. The pancreatitis was treated with bowel rest, IV fluids, and supportive care. Later in the stay it became apparent that your gall bladder was inflamed and Dr Al[facility] removed your gall bladder. During your stay it seemed as if you had an ileus. Ileus is when the bowels get very sleepy. The pancreatitis itself can cause ileus and narcotic pain killers can also contribute. You had low potassium and low magnesium at times and this also makes an ileus worse. The ileus resolved with bowel rest and time. You are now moving your bowels nicely and tolerating a low fat diet. Recommendations - 1. ok to shower at this time. The steri-strips will get wet in the shower and that is ok. The steri-strips will ultimately just fall off over time on their own. No need to remove them manually or by a certain date. 2. for any heartburn you can take lansoprazole 30mg every morning as needed. Prescription sent to your pharmacy for you. 3. resume your normal blood pressure regimen. 4. resume your normal furosemide water pill; start this tomorrow, 08/20/23. 5. follow a low-fat diet for about 5 days (see handout). After that you can resume a regular diet. Follow-up - see separate section Return to [facility] if - * you have fever over 100 degrees * you have any concerns about your abdominal wall incisions * you have shortness of breath * you have chest pains * you have persistent nausea and/or vomiting * you have recurrent abdominal pains * you have yellowing of the eyes or skin * any other concerns It was our pleasure to care for you! Best wishes for a speedy recovery! Pending Studies at Discharge: No Stand-Alone Forms: My [facility] [employer], Smoking Cessation Medications and DC Order Prescriptions: New lansoprazole [Prevacid SoluTab] 30 mg Tablet,Disintegrat, Delay Rel 30 mg PO QAM PRN (Reason: Acid Reflux) Qty: 30 1RF Continued lorazepam 0.5 mg tablet 0.5 mg PO DAILY PRN (Reason: Anxiety) metoprolol succinate 25 mg tablet extended release 24 hr 25 mg PO BID acetaminophen [Tylenol Extra Strength] 500 mg Tablet 1,000 mg PO Q6H PRN (Reason: Back Pain) losartan 100 mg Tablet 100 mg PO QAM Linzess 72 mcg capsule 72 mcg PO QAM ergocalciferol (vitamin D2) 1,250 mcg (50,000 unit) capsule 50,000 unit PO Q30D amlodipine 10 mg tablet 10 mg PO DAILY Changed furosemide 20 mg Tablet 40 mg PO DAILY Qty: 1 0RF Discharge Orders: Discharge Order (Routine); Ordered 08/19/23 Ordered By: Giovanny Murguia/Other Patient Handouts: ED Diet, Low Fat Admission Data Admit Date/Time: 08/05/23 14:19 Attending Provider: Giovanny Perry Admit Provider: Jarod Jeffers Primary Care Provider: Peter Stark Other Providers: Mike Wilkins; Alvin Ruggiero Other Interventions: Discharge Summary Assessment (RN) Last Done: 08/19/23 13:10 Coding Diagnoses Gallstones K80.20 Nausea and vomiting R11.2 Abdominal pain R10.30 Abdominal location: lower abdomen, unspecified Acute pancreatitis K85.90 Dilated pancreatic duct K86.89 Hypertension I10 GERD without esophagitis K21.9 Chronic kidney disease, stage III (moderate) N18.30 Chronic kidney disease stage 3 subtype: unspecified whether 3a or 3b Hypokalemia E87.6 Hypomagnesemia E83.42 Weight gain R63.5
--- NOTE | 2023-08-22 09:56 | Coding Query ---
MALNUTRITION To promote full compliance with coding requirements relating to patient care, physician participation is requested in all cases of head worker uncertainty. Please assist us with the question(s) below: Please place an X within the parenthesis (x). If other, please document: "Malnutrition" is documented in this record on the 08/19 Progress Note with 08/19 Addendum. If possible, please check the box that provides a more specific diagnosis: ( ) Mild malnutrition ( ) Moderate malnutrition ( ) Severe malnutrition ( ) Protein malnutrition (kwashiorkor) ( ) Severe protein calorie malnutrition (x ) Protein calorie malnutrition, unspecified ( ) Other (please specify): Was this diagnosis present on admission? Please place an X within the parenthesis (x). ( ) Present on admission ( x) Not present on admission ( ) Unable to be clinically determined Thank you Sharon Mays [facility]
== END 2023-08-19 13:51 | disposition home or self-care (01) | DRG 418 ==
LOC: ED 08:13 → EDINP 14:19 → SUATTDRO 14:19 → 2S 17:19

== ENCOUNTER 2024-01-04 16:51 | Inpatient (IN) ==
--- NOTE | 2024-01-04 17:20 | Emergency Department Note ---
Impression & Plan LLQ abdominal pain, Lyme disease, Diverticulitis, Leukocytosis, Failure of outpatient treatment, Hypokalemia, GINA (acute kidney injury) ED Provider Note NAME: LULÚ LIMA AGE: 78 SEX: F : 1945 ARRIVES VIA: Walk-In INFORMANT: [Patient] ED PROVIDER(S): [Yang Hairston MD] CHIEF COMPLAINT: Abdominal pain HISTORY OF PRESENT ILLNESS: The patient is an 78-year-old female who states that she just finished Augmentin for diverticulitis. Her last pill was yesterday. She was feeling fairly well and then this morning, developed increased left lower quadrant abdominal pain and some bloating. She had a low-grade fever. There has been no vomiting, she has had some diarrhea she thinks from the Augmentin. No urinary complaints. The patient adds that about a week ago, she was bitten by a tick. Today, she was referred by her doctors office for workup. PMHx/PSHx/Social Hx: See Below PHYSICAL EXAM: GENERAL: Patient is in no acute distress. HEENT: No acute trauma, normocephalic atraumatic, mucous membranes moist, no nasal congestion. NECK: No stridor, no adenopathy, no meningismus, trachea is midline. LUNGS: Clear to auscultation bilaterally, no wheeze, no rhonchi, breath sounds equal. HEART: 2/6 systolic murmur, regular rate and rhythm. ABDOMEN: Soft, mildly tender in the left lower quadrant, there is some mild abdominal distention. EXTREMITIES: No cyanosis, full range of motion of all the joints without pain or difficulty. NEUROLOGIC: Oriented x 3, no acute motor or sensory deficits, no focal weakness. SKIN: No jaundice, no diaphoresis. DIFFERENTIAL DIAGNOSIS: Diverticulitis, abscess, colitis, UTI, obstruction, constipation, tickborne illness, among others. EMERGENCY DEPARTMENT PROCEDURES: MEDICAL DECISION MAKING: There is a moderate leukocytosis, this would be consistent with infection. No concerning anemia. There was a normal platelet count. Potassium is low at 3.1, creatinine somewhat elevated at 1.29. The creatinine elevation is consistent with some dehydration and mild acute kidney injury. No liver enzyme elevation. No evidence for pancreatitis. Cardiac enzyme testing x 1 is not consistent with acute cardiac injury. Urinalysis did not show findings of infection. Lyme disease testing returned positive, the breakdown showed a positive IgG, this would be more consistent with previous Lyme infection. Anaplasmosis and Babesia smears were negative. Abdominal and pelvis CT shows diverticulitis without abscess. On exam, the patient was tender in the left lower quadrant. She was not febrile or toxic. The patient was given IV saline, IV potassium. The patient is in need of a hospital stay. She will require IV antibiotic therapy. She may even require treatment for Lyme disease. I did speak with case management, I spoke with the patient, the on-call hospitalist has been consulted. In short, the patient has failed outpatient treatment for diverticulitis. Prior/Outside records/notes reviewed: Today's note from the outpatient services describing her presentation and the reason for the ED referral. Imaging/x-ray results per my interpretation: Chronic Medical/Social conditions affecting care: Advanced age Care/Management discussed with: Case management, the on-call hospitalist. Level of care consideration(s): After review of the information above and other included data: --I believe the patient requires escalation of care to admission DISPOSITION: Admission Past Med/Surg History Problem List (Updated 01/04/24 @ 21:26 by Yang Hairston MD) GINA (acute kidney injury) (Acute) Hypokalemia (Acute) Failure of outpatient treatment (Acute) Leukocytosis (Acute) Diverticulitis (Acute) Lyme disease (Acute) LLQ abdominal pain (Acute) Lyme disease Cholecystitis Weight gain Nausea and vomiting Hypomagnesemia Hypokalemia Gallstones Dilated pancreatic duct Back pain (Acute) Pancreatitis (Acute) Acute pancreatitis Abdominal pain (Acute) Abnormal weight loss Odynophagia Encounter for pre-operative examination Acute diverticulitis Chronic kidney disease, stage III (moderate) (Acute) Peripheral vascular disease Hyperlipidemia GERD without esophagitis Fibromyalgia Depression Scleroderma Hyponatremia (Chronic) Slow transit constipation Vitamin D deficiency (Chronic) Chronic kidney disease, stage III (moderate) (Chronic) 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 augustine, s Scleroderma Diverticulitis hx Peripheral vascular disease Depression Fibromyalgia GERD (gastroesophageal reflux disease) Spinal stenosis Anxiety "has white coat syndrome and blood pressure can get really high" Secondary hyperparathyroidism Positive NAREN (antinuclear antibody) Hyperkalemia Hypercalcemia Anemia HX Hypertension Surgical History History of left cataract extraction History of dilatation and curettage History of esophagogastroduodenoscopy (EGD) History of breast biopsy RIGHT BENIGN History of hysterectomy History of appendectomy History of tonsillectomy H/O colonoscopy Family History Other No known health problems Social History Smoking Status: Never smoker Second Hand Exposure: No; Do You Dip or Chew Tobacco: No; Hx Alcohol Use: No Hx Substance Use: No Preferred Language: Maltese Communication Ability: Effective 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 Beliefs That Will Affect Care: None Current Living Situation: Spouse current occupational status: retired Feels Safe at Home: Yes Assistive Devices: Brace/Splint/Immobilizer, Cane and Walker Allergies Allergies Allergy/AdvReac Type Severity Reaction Status Date / Time atropine [From ] Allergy Intermediate Hives Verified 01/04/24 17:53 cimetidine [From Tagamet] Allergy Intermediate Hives Verified 01/04/24 17:53 hyoscyamine [From ] Allergy Intermediate Hives Verified 01/04/24 17:53 Iodinated Contrast Media Allergy Intermediate Hives Verified 01/04/24 17:53 [Iodinated Contrast- Oral and IV Dye] nitrofurantoin Allergy Intermediate Rash Verified 01/04/24 17:53 [From Macrobid] phenobarbital [From ] Allergy Intermediate Hives Verified 01/04/24 17:53 regadenoson Allergy Intermediate loss of Verified 01/04/24 17:53 vision, low Blood pressure scopolamine [From ] Allergy Intermediate Hives Verified 01/04/24 17:53 ketoprofen [From Orudis] Allergy Mild Rash Verified 01/04/24 17:53 diltiazem AdvReac Intermediate Hallucinati Verified 01/04/24 17:53 ng doxepin AdvReac Intermediate Hallucinati Verified 01/04/24 17:53 ng doxycycline AdvReac Intermediate Heartburn Verified 01/04/24 17:53 duloxetine [From Cymbalta] AdvReac Intermediate Swelling Verified 01/04/24 17:53 hydrocodone AdvReac Intermediate Dizziness Verified 01/04/24 17:53 lisinopril [From Zestril] AdvReac Intermediate Swelling Verified 01/04/24 17:53 pantoprazole [From Protonix] AdvReac Intermediate Dizziness Verified 01/04/24 17:53 Home Meds Home Medications Medication Instructions Recorded Confirmed lorazepam 0.5 mg tablet 0.5 mg PO DAILY PRN Anxiety 04/14/21 01/04/24 metoprolol succinate 25 mg 25 mg PO BID 04/14/21 01/04/24 tablet,extended release 24 hr acetaminophen 500 mg tablet 1,000 mg PO Q6H PRN Back Pain 04/27/21 01/04/24 (Tylenol Extra Strength) ergocalciferol (vitamin D2) 1,250 50,000 unit PO MONTHLY 05/13/23 01/04/24 mcg (50,000 unit) capsule linaclotide 72 mcg capsule 72 mcg PO QAM 05/13/23 01/04/24 (Linzess) losartan 100 mg tablet 100 mg PO QAM 05/13/23 01/04/24 amlodipine 10 mg tablet 10 mg PO DAILY 08/05/23 01/04/24 lansoprazole 30 mg delayed 30 mg PO QPM 01/04/24 01/04/24 release,disintegrating tablet (Prevacid SoluTab) Previous Rx's Medication Instructions Recorded furosemide 20 mg tablet 40 mg (2 x 20 mg) PO DAILY Fluid 08/19/23 Retention #1 tab Results & Data (ED) Vital Signs Vital Signs - 24 hr 01/04/24 16:59 01/04/24 17:22 01/04/24 17:23 Temperature 36.5 C Temperature Source Temporal Artery Scan Pulse Rate 83 87 Pulse Rate [Apical] 80 Pulse Rhythm Regular Pulse Rhythm [Apical] Regular Pulse Strength [Apical] Normal Respiratory Rate 18 16 Respiratory Effort / Characteristics Non-Labored Non-Labored Spontaneous Respiratory Depth Normal Normal Respiratory Pattern Regular Regular Blood Pressure 160/81 H Blood Pressure [Right Arm] 173/88 H Blood Pressure Mean 107 Blood Pressure Mean [Right Arm] 116 Blood Pressure Position [Right Arm] Sitting Pulse Oximetry 98 99 99 Oxygen Delivery Method Room Air Room Air Room Air Sepsis Recent Fever Within 48 Hours No Sepsis New/Unexplained Change in Mental Status N/A Sepsis Action Taken by Nursing No Action Required 01/04/24 17:24 Temperature Temperature Source Pulse Rate 84 Pulse Rate [Apical] Pulse Rhythm Pulse Rhythm [Apical] Pulse Strength [Apical] Respiratory Rate Respiratory Effort / Characteristics Respiratory Depth Respiratory Pattern Blood Pressure Blood Pressure [Right Arm] Blood Pressure Mean Blood Pressure Mean [Right Arm] Blood Pressure Position [Right Arm] Pulse Oximetry Oxygen Delivery Method Sepsis Recent Fever Within 48 Hours Sepsis New/Unexplained Change in Mental Status Sepsis Action Taken by [facility] Medications Current Medication List: was personally reviewed by nd Laboratory Data Attestation: I reviewed the patient's lab results. 01/04/24 17:25 01/04/24 17:25 Lab Results 01/04/24 01/04/24 Range/Units 17:25 19:44 WBC 18.43 H (4.8-10.8) K/ul RBC 4.04 L (4.20-5.40) M/uL Hgb 11.8 L (12.0-16.0) g/dl Hct 35.2 L (37.0-47.0) % MCV 87.1 (80.0-100.0) fL MCH 29.2 (25.0-34.0) pg MCHC 33.5 (32.0-36.0) g/dL RDW Std Deviation 41.4 (36.4-46.3) fL RDW Coeff of Jordi 13.1 (11.5-14.5) % Plt Count 217 (130-400) K/uL MPV 10.1 (9.4-12.4) fL Immature Gran % (Auto) 0.4 % Neut % (Auto) 79.9 % Lymph % (Auto) 10.7 % Tompkins % (Auto) 8.1 % Eos % (Auto) 0.6 % Baso % (Auto) 0.3 % Neut # (Auto) 14.72 H (1.40-6.50) K/uL Lymph # (Auto) 1.98 (1.20-3.40) K/uL Tompkins # (Auto) 1.49 H (0.11-0.59) K/uL Eos # (Auto) 0.11 (0.00-0.50) K/uL Baso # (Auto) 0.06 (0.00-0.20) K/uL Immature Gran # (Auto) 0.07 (0.01-0.20) K/uL Sodium 138 (136-145) mmol/L Potassium 3.1 L (3.5-5.1) mmol/L Chloride 102 (98-107) mmol/L Carbon Dioxide 29 (21-32) mmol/L Anion Gap 7 (3-11) BUN 14 (6-23) mg/dl Creatinine 1.29 H (0.6-1.2) mg/dl Est Cr Clr Drug Dosing 30.0 ml/min Est GFR ( Amer) 45.3 ml/min Est GFR (Non-Af Amer) 39.1 ml/min BUN/Creatinine Ratio 10.9 (10-20) Glucose 111 H (70-99(Fasting)) mg/dl Calcium 9.5 (8.6-10.3) mg/dl Magnesium 1.7 (1.7-2.4) mg/dl Total Bilirubin 0.5 (0.2-1.0) mg/dl AST 18 (13-39) U/L ALT 14 (7-52) U/L Alkaline Phosphatase 77 (34-104) U/L Troponin I High Sens 10.6 (0-14) pg/ml Total Protein 7.6 (6.0-8.3) gm/dl Albumin 4.2 (3.4-5.0) gm/dl Globulin 3.4 (2.5-4.0) gm/dl Albumin/Globulin Ratio 1.2 (0.9-2) Lipase 18 (11-82) U/L Urine Color Yellow Urine Appearance Clear (Clear) Urine pH 7.0 (4.5-7.5) Ur Specific [place] 1.008 (1.000-1.030) Urine Protein Negative (Negative) Urine Glucose (UA) Negative (Negative) Urine Ketones Negative (Negative) Urine Blood Negative (Negative) Urine Nitrite Negative (Negative) Urine Bilirubin Negative (Negative) Urine Urobilinogen Negative (Negative) Ur Leukocyte Esterase Negative (Negative) Anaplasma Smear See Comment Babesia Smear See Comment Lyme Disease Screen Positive H (Negative) Lyme Disease IgG Ab Positive H (Negative) Lyme Disease IgM Ab Negative (Negative) Administered Medications Discontinued Medications Sodium Chloride (Nss) 1,000 mls @ 999 mls/hr IV .Q1H1M ONE Stop: 01/04/24 19:23 Last Infusion: 01/04/24 19:34 Dose: Infused Documented By: Admin: 01/04/24 18:34 Dose: 999 mls/hr Documented By: RAYNA Potassium Chloride (K Ravi / Wtr) 10 meq in 100 mls @ 100 mls/hr IV ONE ONE Stop: 01/04/24 19:22 Last Infusion: 01/04/24 20:24 Dose: Infused Documented By: Admin: 01/04/24 18:34 Dose: 100 mls/hr Documented By: RAYNA Ceftriaxone Sodium (Rocephin) 2,000 mg in 50 mls @ 100 mls/hr IV NOW STA Stop: 01/04/24 19:55 Last Admin: 01/04/24 20:35 Dose: 100 mls/hr Documented By: DAVID Imaging Data Radiologist's Impression: Abdomen/Pelvis CT 01/04/24 17:10 CT SCAN OF THE ABDOMEN AND PELVIS WITHOUT IV CONTRAST CLINICAL HISTORY: Generalized abdominal pain. COMPARISON STUDY: Prior abdominal CT scans, most recently dated 08/11/2023. TECHNIQUE: CT scan of the abdomen and pelvis is performed from the lung bases to the proximal femora. Images are reviewed in the axial, sagittal, and coronal planes. IV contrast was not administered for this examination due to a reported history of contrast allergy. Note that the examination is suboptimal without oral and IV contrast. A dose lowering technique was utilized adhering to the principles of ALARA. CT DOSE: 592.47 mGy.cm FINDINGS: Lung bases: The heart is mildly enlarged and without pericardial effusion. There is bibasilar scarring/atelectasis. No airspace consolidation or pleural effusion is identified. A small hiatal hernia is noted. Liver: The unenhanced liver is normal in size, contour, and attenuation. There is no intrahepatic biliary ductal dilatation. An 11 mm hepatic cyst is incidentally noted and unchanged. Gallbladder: Surgically absent noting clips in the gallbladder fossa. This is new from previous Spleen: Normal in size and attenuation. Pancreas: The unenhanced pancreas is mildly atrophic and grossly unremarkable. Prominence of the pancreatic duct is less apparent than previous. Adrenal glands: Unremarkable. Kidneys: There is asymmetric cortical atrophy of the right kidney as compared to the left. No hydronephrosis is seen. There are no renal calculi identified. There is no evidence of contour deforming renal mass lesion. Abdominal vasculature: There is advanced atherosclerotic calcification and mild ectasia of the abdominal aorta. Bowel: No bowel obstruction is seen. There is advanced colonic diverticulosis. Mild inflammatory change is seen around the proximal sigmoid colon. This likely represents mild acute diverticulitis. No fluid collection is seen to suggest abscess. The appendix is not identified and reported surgically absent. Peritoneum: No intraperitoneal free air or abdominal ascites is seen. Lymphadenopathy: None. Pelvic viscera: The bladder is normal as visualized. The uterus is surgically absent. No adnexal lesion is seen. Skeletal structures: The skeletal structures are osteopenic. There is moderate lumbosacral spondylosis and mild scoliosis. No lytic or blastic lesions are seen. IMPRESSION: 1. There is advanced colonic diverticulosis. Mild inflammation around the proximal sigmoid colon likely represents acute diverticulitis. 2. No intraperitoneal free air is identified and no fluid collection is seen to suggest abscess. 3. There is no postsurgical change from interval cholecystectomy. 4. Additional findings as above. ACT 112: Negative or not required by law. Electronically signed by: Yang Wolfe M.D. 01/04/2024 6:25 PM Discharge Plan Visit Data Chief Complaint: Abdominal Pain Stated Complaint: BLOATING IN ABD/CRAMPING ED Provider: Yang Hairston Discharge Problem: LLQ abdominal pain, Lyme disease, Diverticulitis, Leukocytosis, Failure of outpatient treatment, Hypokalemia, GINA (acute kidney injury) Patient Disposition: Admitted As Inpatient Condition: Fair Forms Stand Alone Forms: [facility] Prescriptions Prescriptions: No Action lorazepam 0.5 mg tablet 0.5 mg PO DAILY PRN (Reason: Anxiety) metoprolol succinate 25 mg tablet extended release 24 hr 25 mg PO BID acetaminophen [Tylenol Extra Strength] 500 mg Tablet 1,000 mg PO Q6H PRN (Reason: Back Pain) losartan 100 mg Tablet 100 mg PO QAM Linzess 72 mcg capsule 72 mcg PO QAM ergocalciferol (vitamin D2) 1,250 mcg (50,000 unit) capsule 50,000 unit PO MONTHLY Rx Instructions: MIDDLE OF THE MONTH amlodipine 10 mg tablet 10 mg PO DAILY furosemide 20 mg Tablet 40 mg PO DAILY Qty: 1 0RF lansoprazole [Prevacid SoluTab] 30 mg tablet,disintegrat, delay rel 30 mg PO QPM Referrals Referrals: Peter Stark [Primary Care Provider] - Discharge Problem: Leukocytosis Qualifiers: Leukocytosis type: unspecified Qualified Code(s): D72.829 - Elevated white blood cell count, unspecified
[2024-01-04 17:41] LABS: Basophils # (auto) 0.06 K/uL (0.00-0.20); Basophils % (auto) 0.3 %; Eosinophils # (auto) 0.11 K/uL (0.00-0.50); Eosinophils % (auto) 0.6 %; Hematocrit (blood only) 35.2 % (37.0-47.0); Hemoglobin 11.8 g/dl (12.0-16.0); Immature Granulocytes # (auto) 0.07 K/uL (0.01-0.20); Immature Granulocytes % (auto) 0.4 %; Lymphocytes # (auto) 1.98 K/uL (1.20-3.40); Lymphocytes % (auto) 10.7 %; Mean Corpuscular Hemoglobin 29.2 pg (25.0-34.0); Mean Corpuscular Hgb Conc 33.5 g/dL (32.0-36.0); Mean Corpuscular Volume 87.1 fL (80.0-100.0); Mean Platelet Volume 10.1 fL (9.4-12.4); Monocytes # (auto) 1.49 K/uL (0.11-0.59); Monocytes % (auto) 8.1 %; Neutrophils # (auto) 14.72 K/uL (1.40-6.50); Neutrophils % (auto) 79.9 %; Platelet Count 217 K/uL (130-400); RDW Coefficient of Variation 13.1 % (11.5-14.5); RDW Standard Deviation 41.4 fL (36.4-46.3); Red Blood Count 4.04 M/uL (4.20-5.40); White Blood Count 18.43 K/ul (4.8-10.8)
[2024-01-04 17:58] LABS: Albumin Globulin Ratio 1.2 (0.9-2); Albumin Level 4.2 gm/dl (3.4-5.0); BUN Creatinine Ratio 10.9 (10-20); Bilirubin,Total 0.5 mg/dl (0.2-1.0); Calcium 9.5 mg/dl (8.6-10.3); Est GFR (African American) 45.3 ml/min; Est GFR (Non-African American) 39.1 ml/min; Globulin 3.4 gm/dl (2.5-4.0); Magnesium 1.7 mg/dl (1.7-2.4); Potassium 3.1 mmol/L (3.5-5.1); Total Protein 7.6 gm/dl (6.0-8.3)
[2024-01-04 18:04] LABS: Troponin I High Sensitivity 10.6 pg/ml (0-14)
--- NOTE | 2024-01-04 18:27 | CT Scan Report ---
CT SCAN OF THE ABDOMEN AND PELVIS WITHOUT IV CONTRAST CLINICAL HISTORY: Generalized abdominal pain. COMPARISON STUDY: Prior abdominal CT scans, most recently dated 08/11/2023. TECHNIQUE: CT scan of the abdomen and pelvis is performed from the lung bases to the proximal femora. Images are reviewed in the axial, sagittal, and coronal planes. IV contrast was not administered for this examination due to a reported history of contrast allergy. Note that the examination is subopti mal without oral and IV contrast. A dose lowering technique was utilized adhering to the principles o f ALARA. CT DOSE: 592.47 mGy.cm FINDINGS: Lung bases: The heart is mildly enlarged and without pericardial effusion. There is bibasilar scarrin g/atelectasis. No airspace consolidation or pleural effusion is identified. A small hiatal hernia is noted. Liver: The unenhanced liver is normal in size, contour, and attenuation. There is no intrahepatic marysol iary ductal dilatation. An 11 mm hepatic cyst is incidentally noted and unchanged. Gallbladder: Surgically absent noting clips in the gallbladder fossa. This is new from previous Spleen: Normal in size and attenuation. Pancreas: The unenhanced pancreas is mildly atrophic and grossly unremarkable. Prominence of the panc reatic duct is less apparent than previous. Adrenal glands: Unremarkable. Kidneys: There is asymmetric cortical atrophy of the right kidney as compared to the left. No hydrone phrosis is seen. There are no renal calculi identified. There is no evidence of contour deforming herson al mass lesion. Abdominal vasculature: There is advanced atherosclerotic calcification and mild ectasia of the abdomi nal aorta. Bowel: No bowel obstruction is seen. There is advanced colonic diverticulosis. Mild inflammatory lizama ge is seen around the proximal sigmoid colon. This likely represents mild acute diverticulitis. No fl uid collection is seen to suggest abscess. The appendix is not identified and reported surgically ab sent. Peritoneum: No intraperitoneal free air or abdominal ascites is seen. Lymphadenopathy: None. Pelvic viscera: The bladder is normal as visualized. The uterus is surgically absent. No adnexal lesi on is seen. Skeletal structures: The skeletal structures are osteopenic. There is moderate lumbosacral spondylosi s and mild scoliosis. No lytic or blastic lesions are seen. IMPRESSION: 1. There is advanced colonic diverticulosis. Mild inflammation around the proximal sigmoid colon like ly represents acute diverticulitis. 2. No intraperitoneal free air is identified and no fluid collection is seen to suggest abscess. 3. There is no postsurgical change from interval cholecystectomy. 4. Additional findings as above. ACT 112: Negative or not required by law. Electronically signed by: Yang Wolfe M.D. 01/04/2024 6:25 PM
[2024-01-04 18:31] LABS: Lyme Screen Rflx Confirmation Positive (Negative)
[2024-01-04] MEDS: SODIUM CHLORIDE 0.9% 1,000 ML IV ONE (18:34)
[2024-01-04] MEDS: POTASSIUM CHLORIDE / WTR 10 MEQ/100 ML PLCT IV ONE ×2 (18:34→23:46)
--- OUTSIDE RECORDS SUMMARY | 2024-01-04 18:48 | External Medical Summary | Summary of Care ---
Author Name Unknown Organization [facility] Address [address] [facility] [place] [address] Phone [phone] Care Team Providers Care Electric Deicer Inspector Name Role Phone Peter Stark MD Primary Care Provider [phone] Reason for Visit * Reason Onset Date Comments Information 11/28/2023 Encounter Details Date Type Department Care Team (Late st Contact Info) Description 11/28/2023 Telephone Gastroenterology, [address] [address] She Garcia MD [address] [place] [address] Information Allergies Active Allergy Reactions Criticality Noted Date Comments Atropine 07/13/2022 Cimetidine Medium 07/13/2022 Other reaction(s): Hives Duloxetine Hcl 12/12/2018 swelling Diltiazem 07/19/2005 Nightmares Doxepin 07/19/2005 Nightmares Doxycycline 06/17/2020 " severe heartburn" Duloxetine 07/13/2022 Hydrocodone Medium 07/13/2022 Other reaction(s): Dizziness, Dizzy Hyoscyamine Hives High 07/13/2022 Iodinated Contrast Media Hives High 12/12/2018 Iodine 07/13/2022 Ketoprofen Rash Low 06/17/2020 Lisinopril Low 07/19/2005 Swelling Other Reaction(s): Swelling Nitrofuran Derivatives 07/19/2005 rash Nitrofurantoin Rash High 05/22/2023 Nsaids 07/19/2005 Pantoprazole Low 07/19/2005 Dizzy Other Reaction(s): Dizziness Phenobarbital-Belladonna Alk 020 Phenobarbital-Belladonna Alk 023 Regadenoson High 12/12/2018 Loss of vision, B/P dropped Other Reaction(s): loss of vision, low Blood pressure Scopolamine Hives High 07/13/2022 Cimetidine 07/19/2005 Hydrocodone-Acetaminophen 12/12/2018 Dizziness, diaphoretic documented as of this encounter (statuses as of 11/28/2023) Medications Medication Sig Dispensed Refills Start Date End Date Status NEXIUM 40 MG PO CPDR Take by mouth daily before dinner. 30 0 07/19/2005 Active LORAzepam (ATIVAN) 0.5 MG Tablet 1 twice daily 0 11/24/2018 Active Cholecalciferol (VITAMIN D3) 60113 units Capsule Take 1 Capsule by mouth. 1 monthly 0 Active amLODIPine Besylate 5 MG Oral Tablet (NORVASC) 1 Tablet every morning. 1 daily 0 04/21/2020 Active Metoprolol Succinate ER 25 MG Oral Tablet Extended Release 24 Hour (toPROL XL) 2 times a day. 0 02/01/2021 Acti ve Amoxicillin 500 MG Oral Capsule (Amoxil) As needed for dentist 0 06/12/2021 Active Linzess 145 MCG Oral Capsule 1 daily 0 05/29/2021 Active Gabapentin 300 MG Oral Capsule (Neurontin) As needed 0 07/04/2022 Activ e Losartan Potassium 50 MG Oral Tablet (Cozaar) at bedtime. 0 05/09/2022 Active Furosemide 20 MG Oral Tablet (Lasix) Take by mouth daily. 0 Active documented as of this encounter (statuses as of 11/28/2023) Active Problems Problem Noted Date Diagnosed Date Medical marijuana use 06/16/2021 Raynaud's disease without gangrene 06/12/2019 Primary osteoarthritis of both knees 12/12/2018 Scleroderma 12/12/2018 Fibromyalgia Kidney disease, chronic, stage III (GFR 30-59 ml /min) IBS (irritable bowel syndrome) HTN (hypertension) GERD (gastroesophageal reflux disease) Anxiety documented as of this encounter (statuses as of 11/28/2023) Immunizations Name Administration Dates Next Due COVID-19 mRNA, LNP-s, No Pre serve, 2-Dose Series (Moderna) 10/08/2020,09/10/2020 Pneumococcal Polysaccharide PPV23 (Pneumovax) 07/02/2007 Season Influenza, Quad, PF, Adjuvanted, 65+ Yrs, IM (FLUAD) 06/12/2023 Seasonal Influenza Virus Vac cine, Unspecified Formulation 04/28/2018,05/29/2017,07/02/2007,06/19,05/28/2005,08/29/2004 Seasonal Influenza, Quadriva lent Hd, 65+ Yrs 05/07/2022 Seasonal Influenza, Trivalen t, Adjuvanted, 65+ yrs 05/31/2020 documented as of this encounter Social History Tobacco Use Types Packs/Day Years Used Date Smoking Tobacco: Never Smokeless Tobacco: Never Alcohol Use Standard Drinks/Week Comments No 0 (1 standard drink = 0.6 oz pur e alcohol) AUDIT-C Answer Date Recorded Frequency of Alcohol Consumption Never 12/12/2018 Average Number of Drinks Not on file 019 Frequency of Binge Drinking Not on file 11/26 Sex and Gender Information Value Date Recorded Sex Assigned at Not on file Gender Identity Not on file Sexual Orientation Not on file Job Start Date Occupation Industry Not on file Not on file Not on file documented as of this encounter Miscellaneous Notes * Telephone Encounter - Adriana Francisco OSA - 11/28/2023 10:40 AM EDT Received new notes from [facility]. Please review and see what patient needs. Thank you.(Sending to scanning) documented in this encounter Plan of Treatment Upcoming Encounters Date Type Department Care Team (Late st Contact Info) Description 01/07/2024 11:00 AM EDT Imaging Radiology [facility] [address] [facility], [place] [address] [place] [address] 07/17/2024 1:00 PM EST Office Visit Rheumatology [place] Federico Felix [address] [place] [address] Giuliano Tolentino MD [address] [facility] [place] [address] Health Maintenance Due Date Last Done Comments DXA Scan 1945 GFR 1943 Depression Screening 1955 Albumin/Creatinine Ratio 1961 CKD HGB USE SMARTSET 64923 1961 CKD PHOS USE SMARTSET 25512 1961 DTaP,Tdap,and Td Vaccines (1 - Tdap) 1962 Zoster Vaccines (1 of 2) 1993 Pneumococcal Vaccine: 65+ Years (2 of 2 - PCV) 2008 07/02/2007 COVID-19 Vaccine (3 - season) 2023 10/08/2020, 09/10/2020 Influenza Vaccine (FLU shot) Completed , 05/07/2022, 05/31/2020, Additional history exists GARDASIL-HPV IMMUNIZATION SERIES Aged Out No longer eligible based on patient's age to complete this topic Hepatitis B Aged Out No longer eligi ble based on patient's age to complete this topic MENINGOCOCCAL (MENACTRA/MENVEO) Aged Out No longer eligible based on patient's age to complete this topic documented as of this encounter Medical Devices Not on filedocumented as of this encounter Care Teams Electric Deicer Inspector Relationship Specialty Start Date End Date Peter Stark MD [address] [place] [address] PCP - General 07/12/05 documented as of this encounter
--- OUTSIDE RECORDS SUMMARY | 2024-01-04 18:48 | External Medical Summary | Summary of Care ---
Author Name Unknown Organization [facility] Address [address] [facility] [place] [address] Phone [phone] Care Team Providers Care Design Sales Consultant Name Role Phone Peter Stark MD Primary Care Provider [phone] Reason for Visit * Reason Onset Date Comments Information 11/28/2023 Encounter Details Date Type Department Care Team (Late st Contact Info) Description 11/28/2023 Telephone Gastroenterology, [address] [address] She Garcia MD [address] [place] [address] Information Allergies Active Allergy Reactions Criticality Noted [...] daily 0 11/24/2018 Active Cholecalciferol (VITAMIN D3) 69574 units Capsule Take 1 Capsule by mouth. [...] Encounter - Adriana Francisco OSA - 11/28/2023 12:42 PM EDT Notes pt scheduled for MRI. Thank you * Telephone Encounter - She Garcia MD - 11/28/2023 12:05 PM EDT Records reviewed, no change in plan which is MRI of the pancreas next month. * Telephone Encounter - Bonnie Suarez OSA - 11/28/2023 11:57 AM EDT Notes scanned. * Telephone Encounter - Adriana Francisco OSA - 11/28/2023 10:40 AM EDT Received new notes from [facility]. Please review and see what patient needs. Thank you.(Sending to scanning) documented in this encounter Plan of Treatment Upcoming Encounters Date Type Department Care Team (Late st Contact Info) Description 01/07/2024 11:00 AM EDT Imaging Radiology [facility] [address] [facility], [place] [address] [place] [address] 07/17/2024 1:00 PM EST Office Visit Rheumatology [place] Federico Felix [address] [place] [address] Giuliano Tolentino MD [address] [place] [address] Health Maintenance Due Date Last Done Comments DXA Scan 1943 GFR 1943 Depression Screening 1955 Albumin/Creatinine Ratio 1961 CKD HGB USE SMARTSET 81718 1961 CKD PHOS USE SMARTSET 96378 1961 DTaP,Tdap,and Td Vaccines (1 - Tdap) [...] filedocumented as of this encounter Care Teams Design Sales Consultant Relationship Specialty Start Date End Date Peter Stark MD [address] [place] [address] PCP - General 07/12/05 documented as of this encounter
--- OUTSIDE RECORDS SUMMARY | 2024-01-04 18:48 | External Medical Summary | Summary of Care ---
Author Name Unknown Organization [facility] Address [address] [facility] [place] [address] Phone [phone] Care Team Providers Care Service Crew Leader Name Role Phone Peter Stark MD Primary Care Provider [phone] Reason for Visit * Reason Onset Date Comments Information 11/28/2023 Encounter Details Date Type Department Care Team (Late st Contact Info) Description 11/28/2023 Telephone Gastroenterology, [address] [address] She Garcia MD [address] [place] [address] Information Allergies Active Allergy Reactions Criticality Noted [...] daily 0 11/24/2018 Active Cholecalciferol (VITAMIN D3) 63246 units Capsule Take 1 Capsule by mouth. [...] encounter Miscellaneous Notes * Telephone Encounter - Bonnie Suarez OSA - 11/28/2023 11:57 AM EDT Notes scanned. * Telephone Encounter - Adriana Francisco OSA - 11/28/2023 10:40 AM EDT Received new notes from [facility]. Please review and see what patient needs. Thank you.(Sending to scanning) documented in this encounter Plan of Treatment Upcoming Encounters Date Type Department Care Team (Late st Contact Info) Description 01/07/2024 11:00 AM EDT Imaging Radiology [address] [place] [address] 07/17/2024 1:00 PM EST Office Visit [facility] [place] [address] [facility] [address] Giuliano Tolentino MD [address] [place] [address] Health Maintenance Due Date Last Done Comments DXA Scan 1943 GFR 1943 Depression Screening 1955 Albumin/Creatinine Ratio 1961 CKD HGB USE SMARTSET 23880 1961 CKD PHOS USE SMARTSET 69924 1961 DTaP,Tdap,and Td Vaccines (1 - Tdap) [...] filedocumented as of this encounter Care Teams Service Crew Leader Relationship Specialty Start Date End Date [facility] Stark [facility] [address] [facility] [address] PCP - General 07/12/05 documented as of this encounter
--- OUTSIDE RECORDS SUMMARY | 2024-01-04 18:48 | External Medical Summary | Summary of Care ---
Author Name Unknown Organization [facility] [address] [facility] [address] Phone [phone] Care Team Providers Care Electronic Musical Instrument Repairer Name Role Phone Peter Stark MD Primary Care Provider [phone] Reason for Visit * Auth/Cert Specialty Diagnoses / Procedures Referred By Andrew hickey Referred To Contact Diagnoses Pancreatitis Pancreatitis [K85.90] Procedures EGD, W/ENDOSCOPIC US ESOPHAGOGASTRODUODENOSCOPY (EGD), FLEXIBLE, TRANSORAL, ENDOSCOPIC ULTRASOUND Referral ID Status Reason Start Date Expiration Date Visits Re quested Visits Authorized [id number] Encounter Details Date Type Department Care Team (Latest Contact Info) Description 10/07/2023 9:52 AM EDT - 10/07/2023 11:50 AM EDT Hospital Encounter [facility], Endoscopy Room [facility] [address] [place] [address] She Garcia MD [address] [place] [id number] Upper Endoscopic US Discharge Disposition: Home - Self Care Allergies Active Allergy Reactions Criticality Noted Date [...] as of this encounter (statuses as of 10/08/2023) Medications Medication Sig Dispensed Refills Start Date End Date Status NEXIUM 40 MG PO CPDR Take by mouth daily before dinner. 30 0 07/19/2005 Active LORAzepam (ATIVAN) 0.5 MG Tablet 1 twice daily 0 11/24/2018 Active Cholecalciferol (VITAMIN D3) 30680 units Capsule Take 1 Capsule by mouth. [...] as of this encounter (statuses as of 10/08/2023) Active Problems Problem Noted Date Diagnosed Date Medical marijuana use 06/16/2021 Raynaud's disease without gangrene 06/12/2019 Primary osteoarthritis of both knees 12/12/2018 Scleroderma 12/12/2018 Fibromyalgia Kidney disease, chronic, stage III (GFR 30-59 ml /min) IBS (irritable bowel syndrome) HTN (hypertension) GERD (gastroesophageal reflux disease) Anxiety documented as of this encounter (statuses as of 10/08/2023) Immunizations Name Administration Dates Next Due COVID-19 [...] on file documented as of this encounter Last Filed Vital Signs Vital Sign Reading Time Taken Comments Blood Pressure 116/49 10/07/2023 11:28 AM EDT Pulse 60 10/07/2023 11:28 AM EDT Temperature 36.4 C (97.6 F) 10/07/2023 11:13 AM E DT Respiratory Rate 16 10/07/2023 11:28 AM EDT Oxygen Saturation 97% 10/07/2023 11:28 AM EDT Inhaled Oxygen Concentration - - Weight 54 kg (119 lb 0.8 oz) 10/07/2023 10:17 AM EDT Height 162.6 cm (5' 4.02") 10/07/2023 10:17 AM E DT Body Mass Index 20.42 10/07/2023 10:17 AM EDT documented in this encounter H&P Notes * She Garcia MD - 10/07/2023 10:18 AM EDT Endoscopy Pre-Procedure Assessment Name: Marisel Galarza Date: 10/07/2023 Time: 10:18 AM Procedure(s): Endoscopic Ultrasound; with Indication(s) of evaluation of abnormalities on radiologic study Endoscopy Pre-Procedure Assessment: Prior to the procedure, the patient was identified. The patient's history, medications and allergies were reviewed as per the Anesthesia Assessment. The patient is competent. The risks and benefits of the proposed procedure and the planned sedation were discussed with the patient. All questions were answered and informed consent for the procedure was obtained. BP 159/60 | Pulse 67 | Temp 36.3 C (97.4 F) (Tympanic) | Resp 16 | Ht 1.626 m (5' 4.02") | Wt 54 kg (119 lb 0.8 oz) | SpO2 100% | BMI 20.42 kg/m | BSA 1.56 m Review of patient's allergies indicates: Allergen Reactions Hyoscyamine Hives Iodinated Contrast Media Hives Nitrofurantoin Rash Regadenoson Loss of vision, B/P dropped Other Reaction(s): loss of vision, low Blood pressure Scopolamine Hives Cimetidine Other reaction(s): Hives Hydrocodone Other reaction(s): Dizziness, Dizzy Atropine Cymbalta [Duloxetine Hcl] swelling Diltiazem Nightmares Doxepin Nightmares Doxycycline " severe heartburn" Duloxetine Iodine Macrobid [Nitrofuran Derivatives] rash Orudis [Nsaids] Phenobarbital-Belladonna Alk Phenobarbital-Belladonna Alk Tagamet [Cimetidine] Vicodin [Hydrocodone-Acetaminophen] Dizziness, diaphoretic Ketoprofen Rash Lisinopril Swelling Other Reaction(s): Swelling Pantoprazole Dizzy Other Reaction(s): Dizziness Prior to Admission medications Medication Sig Last Dose Discont. Furosemide 20 MG Oral Tablet (Lasix) Take by mouth daily. 10/06/2023 Gabapentin 300 MG Oral Capsule (Neurontin) As needed Past Month Losartan Potassium 50 MG Oral Tablet (Cozaar) at bedtime. 10/06/2023 Linzess 145 MCG Oral Capsule 1 daily Past Week Metoprolol Succinate ER 25 MG Oral Tablet Extended Release 24 Hour (toPROL XL) 2 times a day. 10/07/2023 amLODIPine Besylate 5 MG Oral Tablet (NORVASC) 1 Tablet every morning. 1 daily 10/07/2023 Cholecalciferol (VITAMIN D3) 57178 units Capsule Take 1 Capsule by mouth. 1 monthly Past Month LORAzepam (ATIVAN) 0.5 MG Tablet 1 twice daily 10/06/2023 NEXIUM 40 MG PO CPDR Take by mouth daily before dinner. 10/06/2023 Amoxicillin 500 MG Oral Capsule (Amoxil) As needed for dentist Patient not taking: Reported on 07/13/2022 Physical Exam: Mental Status Examination: alert and oriented. Airway Examination: normal oropharyngeal airway and neck mobility. Respiratory Examination: clear to auscultation. CV Examination: Regular rate and rythm, no murmurs. ASA Grade: II - A patient with mild systemic disease. After reviewing the risks and benefits, the patient was deemed in satisfactory condition to undergothe procedure. The anesthesia plan was to use sedation. Patient was explained in detail regarding risks, benefits, limitations and alternatives of the above endoscopic procedure. Risks of intravenous sedation used for procedure were also explained. Risks include, but not limited to perforation, bleeding, infection, respiratory distress, cardiac arrest and . Risk of acute pancreatitis and necrosis if ERCP is done. Patient is also aware about the possibility of missed lesion. Patient's questions were answered. The patient verbalized understandingthe information and agreed to undergo the procedure. Discussed with the patient that he/she is at an explicit higher risk for complications in comparison to other patients She Garcia MD 10/07/2023 documented in this encounter Procedure Notes * Peter Stark MD - 10/07/2023 10:35 AM EDTAssociated Order(s): UPPER ENDOSCOPIC U/S [facility] Patient Name: Marisel Galarza Procedure Date: 10/07/2023 10:35 AM Date of : 1945 Admit Type: Outpatient Note Status: Finalized Date of : 1945 Admit Type: Outpatient Age: 78 Room: Advanced Endo Gender: Female Note Status: Finalized Procedure: Upper EUS Indications: Dilated pancreatic duct on CT scan Providers: She Garcia MD (Doctor), Cayetano Easley RN Referring MD: Peter Stark MD (Referring MD) Medicines: Propofol per Anesthesia Complications: No immediate complications. Procedure: Pre-Anesthesia Assessment: - Prior to the procedure, a History and Physical was performed, and patient medications, allergies and sensitivities were reviewed. The patient's tolerance of previous anesthesia was reviewed. - The risks and benefits of the procedure and the sedation options and risks were discussed with the patient. All questions were answered and informed consent was obtained. - Patient identification and proposed procedure were verified prior to the procedure by the physician and the nurse. The procedure was verified in the procedure room. - Pre-procedure physical examination revealed no contraindications to sedation. After obtaining informed consent, the endoscope was passed under direct vision. All instruments were visually inspected immediately before and after removal from the patient to ensure they are fully intact. Throughout the procedure, the patient's blood pressure, pulse, and oxygen saturations were monitored continuously. The Endosonoscope was introduced through the mouth, and advanced to the second part of duodenum. The upper EUS was accomplished without difficulty. The patient tolerated the procedure well. The [id number]-[id number] Endoscope ([id number]) was introduced through the mouth, and advanced to the second part of duodenum. Findings & Specimens: ENDOSCOPIC FINDING: : The examined esophagus was normal. The entire examined stomach was normal. The duodenal bulb and second portion of the duodenum were normal. ENDOSONOGRAPHIC FINDING: : There was no sign of significant endosonographic abnormality in the ampulla. No masses were identified. There was no sign of significant endosonographic abnormality in the common bile duct. The maximum diameter of the duct was 5 mm. No stones were identified. Evidence of a previous cholecystectomy was identified endosonographically. There was no sign of significant endosonographic abnormality in the visualized portion of the liver. Homogeneous parenchyma was identified. Pancreatic parenchymal abnormalities were noted in the entire pancreas. These consisted of atrophy, hyperechoic strands and hyperechoic foci. PD measured 4 mm in the head and 3 mm in the body. No mass seen in the neck and the duct had normal caliber there. Impression: - Normal esophagus. - Normal stomach. - Normal duodenal bulb and second portion of the duodenum. - There was no sign of significant pathology in the ampulla. - There was no sign of significant pathology in the common bile duct. - Evidence of a cholecystectomy. - There was no evidence of significant pathology in the visualized portion of the liver. - Pancreatic parenchymal abnormalities consisting of atrophy, hyperechoic strands and hyperechoic foci were noted in the entire pancreas. PD slightly prominent but no discrete mass seen. - No specimens collected. Recommendation: - Discharge patient to home. - Obtain CT scan or MRI of the pancreas in 3 months for follow up. - Return to referring physician. She Garcia MD 10/07/2023 11:11:57 AM This report has been signed electronically. documented in this encounter Nursing Notes * Jonatan Loya RN - 10/07/2023 11:39 AM EDT Patient is alert, pain free and tolerating po fluids prior to discharge. Patient has been visited by Dr. Garcia. Patient has received and demonstrates understanding of discharge instructions. Patient ambulated to private auto accompanied by endo staff. * Jonatan Loya RN - 10/07/2023 11:18 AM EDT Patient transferred to post endo s/p EUS. Patient awake, sleepy Respirations are even and unlabored on room air. NSR on the monitor. Abdomen soft and non distended. Vital signs stable. * Jarod Leija RN - 10/07/2023 11:09 AM EDT See anesthesia record for medication administered during procedure. Jarod Leija RN Pre cleaning of scope at the bedside started by chemical waste management technician. * Maria Esther Segundo RN - 10/07/2023 10:19 AM EDT The following pt discharge instructions reviewed with pt prior to prodedure: No driving today. No alcohol today. No signing of legal documents. Rest as much as possible today and can return to normal activities tomorrow. No operating any heavy equipment today. Diet as tolerated. Pt verbalized understanding. documented in this encounter Plan of Treatment Upcoming Encounters Date Type Department Care Team (Late st Contact Info) Description 07/17/2024 1:00 PM EST Office Visit Rheumatology [facility] Federico Felix [address] [facility] [place] [address] Giuliano Tolentino MD [address] [place] [address] Health Maintenance Due Date Last Done Comments DXA Scan 1945 GFR 1945 Depression Screening 1955 Albumin/Creatinine Ratio 1961 CKD HGB USE SMARTSET 22886 1961 CKD PHOS USE SMARTSET 15238 1961 DTaP,Tdap,and Td Vaccines (1 - Tdap) [...] Not on filedocumented as of this encounter Procedures Procedure Name Priority Date/Time Associated Diagnosis Comments UPPER ENDOSCOPIC U/S 10/07/2023 10:35 AM EDT documented in this encounter Results * UPPER ENDOSCOPIC U/S (10/07/2023 10:35 AM EDT) 10/07/2023 10:3 5 AM EDT Narrative Procedure Note Peter Stark MD - 10/07/2023 10:35 AM EDT [facility] Patient Name: Marisel Galarza Procedure Date: 10/07/2023 10:35 AM Date of : 1945 Admit Type: Outpatient Note Status:Finalized Date of : 1945 Admit Type: Outpatient Age: 78 Room: Advanced Endo Gender: Female Note Status: Finalized Procedure: Upper EUS Indications: Dilated pancreatic duct on CT scan Providers: She Garcia MD (Doctor), Cayetano Easley RN Referring MD: Peter Stark MD (Referring MD) Medicines: Propofol per Anesthesia Complications: No immediate complications. Procedure: Pre-Anesthesia Assessment: - Prior to the procedure, a History and Physicalwas performed, and patient medications, allergies and sensitivities werereviewed. The patient's tolerance of previous anesthesia was reviewed. - The risks and benefits of the procedure and thesedation options and risks were discussed with the patient. All questions wereanswered and informed consent was obtained. - Patient identification and proposed procedurewere verified prior to the procedure by the physician and the nurse. The procedure wasverified in the procedure room. - Pre-procedure physical examination revealed nocontraindications to sedation. After obtaining informed consent, the endoscope waspassed under direct vision. All instruments were visually inspected immediatelybefore and after removal from the patient to ensure they are fully intact. Throughout the procedure, the patient's bloodpressure, pulse, and oxygen saturations were monitored continuously. The Endosonoscope wasintroduced through the mouth, and advanced to the second part of duodenum. The upperEUS was accomplished without difficulty. The patient tolerated the procedurewell. The [id number]-[id number] Endoscope ([id number]) was introduced through the mouth, andadvanced to the second part of duodenum. Findings & Specimens: ENDOSCOPIC FINDING: : The examined esophagus was normal. The entire examined stomach was normal. The duodenal bulb and second portion of the duodenum were normal. ENDOSONOGRAPHIC FINDING: : There was no sign of significant endosonographic abnormality in theampulla. No masses were identified. There was no sign of significant endosonographic abnormality in thecommon bile duct. The maximum diameter of the duct was 5 mm. No stones were identified. Evidence of a previous cholecystectomy was identifiedendosonographically. There was no sign of significant endosonographic abnormality in thevisualized portion of the liver. Homogeneous parenchyma was identified. Pancreatic parenchymal abnormalities were noted in the entirepancreas. These consisted of atrophy, hyperechoic strands and hyperechoic foci. PD measured 4 mm in thehead and 3 mm in the body. No mass seen in the neck and the duct had normal caliber there. Impression: - Normal esophagus. - Normal stomach. - Normal duodenal bulb and second portion of theduodenum. - There was no sign of significant pathology in theampulla. - There was no sign of significant pathology in thecommon bile duct. - Evidence of a cholecystectomy. - There was no evidence of significant pathology inthe visualized portion of the liver. - Pancreatic parenchymal abnormalities consistingof atrophy, hyperechoic strands and hyperechoic foci were noted in the entire pancreas.PD slightly prominent but no discrete mass seen. - No specimens collected. Recommendation: - Discharge patient to home. - Obtain CT scan or MRI of the pancreas in 3 monthsfor follow up. - Return to referring physician. She Garcia MD 10/07/2023 11:11:57 AM This report has been signed electronically. Peter Stark MD GASTRO [facility]ER documented in this encounter Administered Medications Inactive Administered Medications - up to 3 most recent administrations Medication Order MAR Action Action Date Dose Rate Site isolyte-S pH 7.4 infusion Intravenous, at 100 mL/hr, Plasma-LYTE 148, isolyte-S, and isolyte-S pH 7.4 are considered equivalent - including for MAR barcode scanning., CONTINUOUS, Starting on Sat10/07/23 at 1030, Until Sat10/07/23 at 1646, Pre-Op New Bag 10/07/2023 10:44 AM EDT 100 mL/hr documented in this encounter Active and Recently Administered Medications Due to Daylight Saving Time, this section may contain times in both EST and EDT. Continuous Medication Order 10/05/2023 10/06/2023 10/07/2023 isolyte-S pH 7.4 infusion Intravenous, at 100 mL/hr, Plasma-LYTE 148, isolyte-S, and isolyte-S pH 7.4 are considered equivalent - including for MAR barcode scanning., CONTINUOUS, Starting on Sat10/07/23 at 1030, Until Sat10/07/23 at 1646, Pre-Op 1044 (New Bag - Prov ider: Yang Gann CRNA)1115 (Anes Intra-Op Fluid - Provider: Yang Gann CRNA) documented in this encounter Care Teams Electronic Musical Instrument Repairer Relationship Specialty Start Date End Date Peter Stark MD [address] [facility] [place] [address] PCP - General 07/12/05 documented as of this encounter
--- OUTSIDE RECORDS SUMMARY | 2024-01-04 18:48 | External Medical Summary | Summary of Care ---
Author Name Unknown Organization [facility] Address [address] [facility] [place] [address] Phone [phone] Care Team Providers Care Province Archivist Name Role Phone Peter Stark MD Primary Care Provider [phone] Reason for Referral * Precert (Within 10 days (routine)) - Authorized Specialty Diagnoses / Procedures Referred By Andrew ihckey Referred To Contact Radiology Diagnoses Other acute pancreatitis without infection or necrosis Procedures MRI PANCREAS W WO CONTRAST She Garcia MD [address] [place] [address] Referral ID Status Reason Start Date Expiration Date V isits Requested Visits Authorized [id number] Authorized 01/07/[phone] Encounter Details Date Type Department Care Team (Late st Contact Info) Description 10/07/2023 Telephone Gastroenterology, [facility] [address] [place] [address] She Garcia MD [address] [place] [address] Allergies Active Allergy Reactions Criticality Noted Date [...] as of this encounter (statuses as of 10/25/2023) Medications Medication Sig Dispensed Refills Start Date End Date Status NEXIUM 40 MG PO CPDR Take by mouth daily before dinner. 30 0 07/19/2005 Active LORAzepam (ATIVAN) 0.5 MG Tablet 1 twice daily 0 11/24/2018 Active Cholecalciferol (VITAMIN D3) 27372 units Capsule Take 1 Capsule by mouth. [...] as of this encounter (statuses as of 10/25/2023) Active Problems Problem Noted Date Diagnosed Date Medical marijuana use 06/16/2021 Raynaud's disease without gangrene 06/12/2019 Primary osteoarthritis of both knees 12/12/2018 Scleroderma 12/12/2018 Fibromyalgia Kidney disease, chronic, stage III (GFR 30-59 ml /min) IBS (irritable bowel syndrome) HTN (hypertension) GERD (gastroesophageal reflux disease) Anxiety documented as of this encounter (statuses as of 10/25/2023) Immunizations Name Administration Dates Next Due COVID-19 [...] encounter Miscellaneous Notes * Telephone Encounter - Digna Schafer OSA - 10/25/2023 12:05 PM EDT Pt is scheduled on 01/07/24 @ 11 AM for MRI * Telephone Encounter - She Garcia MD - 10/07/2023 11:12 AM EDT Please schedule MRI of the pancreas in 3 months. documented in this encounter Plan of Treatment Upcoming Encounters Date Type Department Care Team (Late st Contact Info) Description 01/07/2024 11:00 AM EDT Imaging Radiology [address] [place] [address] 07/17/2024 1:00 PM EST Office Visit Rheumatology [place], Federico [address] [place] [place] [address] Giuliano Tolentino MD [address] [facility] [place] [address] Scheduled Orders Name Type Priority Associated Diagnoses Orde r Schedule MRI PANCREAS W WO CONTRAST Medical Imaging Routine Other acute pancreatitis without infection or necrosis Expected: 01/07/2024, Expires: 11/06/2024 Health Maintenance Due Date Last Done Comments DXA Scan 1945 GFR 1945 Depression Screening 1955 Albumin/Creatinine Ratio 1961 CKD HGB USE SMARTSET 78488 1961 CKD PHOS USE SMARTSET 55448 1961 DTaP,Tdap,and Td Vaccines (1 - Tdap) [...] Not on filedocumented as of this encounter Visit Diagnoses Diagnosis Other acute pancreatitis without infection or necrosis- Primary documented in this encounter Care Teams Province Archivist Relationship Specialty Start Date End Date Peter Stark MD [address] [place] [address] PCP - General 07/12/05 documented as of this encounter
--- OUTSIDE RECORDS SUMMARY | 2024-01-04 18:48 | External Medical Summary | Summary of Care ---
Author Name Unknown Organization [facility] Address [address] [place] [address] Phone [phone] Care Team Providers Care Director [employer] Name Role Phone Peter Stark MD Primary Care Provider [phone] Reason for Visit * Reason Onset Date Comments Other 10/02/2023 Encounter Details Date Type Department Care Team (Late st Contact Info) Description 10/02/2023 Telephone Gastroenterology, [address] [place] [address] Services, Scheduling [address] [place] [address] Other Allergies Active Allergy Reactions Criticality Noted Date [...] as of this encounter (statuses as of 01/01/2024) Medications Medication Sig Dispensed Refills Start Date End Date Status NEXIUM 40 MG PO CPDR Take by mouth daily before dinner. 30 0 07/19/2005 Active LORAzepam (ATIVAN) 0.5 MG Tablet 1 twice daily 11/24/2018 Active Cholecalciferol (VITAMIN D3) 31236 units Capsule Take 1 Capsule by mouth. 1 monthly Active amLODIPine Besylate 5 MG Oral Tablet (NORVASC) 1 Tablet every morning. 1 daily 04/21/2020 Active Metoprolol Succinate ER 25 MG Oral Tablet Extended Release 24 Hour (toPROL XL) 2 times a day. 02/01/2021 Acti ve Amoxicillin 500 MG Oral Capsule (Amoxil) As needed for dentist 06/12/2021 Active Linzess 145 MCG Oral Capsule 1 daily 05/29/2021 Active Gabapentin 300 MG Oral Capsule (Neurontin) As needed 07/04/2022 Activ e Losartan Potassium 50 MG Oral Tablet (Cozaar) at bedtime. 05/09/2022 Active Furosemide 20 MG Oral Tablet (Lasix) Take by mouth daily. Active documented as of this encounter (statuses as of 01/01/2024) Active Problems Problem Noted Date Diagnosed Date Medical marijuana use 06/16/2021 Raynaud's disease without gangrene 06/12/2019 Primary osteoarthritis of both knees 12/12/2018 Scleroderma 12/12/2018 Fibromyalgia Kidney disease, chronic, stage III (GFR 30-59 ml /min) IBS (irritable bowel syndrome) HTN (hypertension) GERD (gastroesophageal reflux disease) Anxiety documented as of this encounter (statuses as of 01/01/2024) Immunizations Name Administration Dates Next Due COVID-19 [...] encounter Miscellaneous Notes * Telephone Encounter - Darlyn Piña RN - 10/02/2023 1:19 PM EST Reviewed med list. This is on there. * Telephone Encounter - Melissa Caicedo OSA - 10/02/2023 9:45 AM EST Patient is just calling to make sure that they are aware she is allergic to the dye used for Cat scans she is having a procedure done on 10/[address] Garcia, she is having a EUS, she said it wasscheduled and ordered by [facility] documented in this encounter Plan of Treatment Upcoming Encounters Date Type Department Care Team (Late st Contact Info) Description 01/07/2024 11:00 AM EDT Imaging Radiology [address] [place] [address] 07/17/2024 1:00 PM EST Office [address] [address] [place] [address] Giuliano Tolentino MD [address] [place] [address] Health Maintenance Due Date Last Done Comments DXA Scan 1945 GFR 1945 Depression Screening 1955 Albumin/Creatinine Ratio 1961 CKD HGB USE SMARTSET 27467 1961 CKD PHOS USE SMARTSET 61362 1961 DTaP,Tdap,and Td Vaccines (1 - Tdap) [...] filedocumented as of this encounter Care Teams Director [employer] Relationship Specialty Start Date End Date Peter Stark MD [address] [facility] [place] [address] PCP - General 07/12/05 documented as of this encounter
--- OUTSIDE RECORDS SUMMARY | 2024-01-04 18:48 | External Medical Summary | Summary of Care ---
Author Name Unknown Organization [facility] Address [address] [facility] [place] [address] Phone [phone] Care Team Providers Care Glass Designer Name Role Phone Peter Stark MD Primary Care Provider [phone] [phone] Reason for Visit * Reason Onset Date Comments Information 11/28/2023 Encounter Details Date Type Department Care Team (Late st Contact Info) Description 11/28/2023 Telephone Gastroenterology, [address] [address] She Garcia MD [address] [place] [address] Information Allergies Active Allergy Reactions Criticality Noted [...] daily 0 11/24/2018 Active Cholecalciferol (VITAMIN D3) 75928 units Capsule Take 1 Capsule by mouth. [...] encounter Miscellaneous Notes * Telephone Encounter - She Garcia MD - 11/28/2023 12:05 PM EDT Records reviewed, no change in plan which is MRI of the pancreas next month. * Telephone Encounter - Bonnie Suarez OSA - 11/28/2023 11:57 AM EDT Notes scanned. * Telephone Encounter - Adriana Francisco OSA - 11/28/2023 10:40 AM EDT Received new notes from [facility]. Please review and see what patient needs. Thank you.(Sending to scanning) documented in this encounter Plan of Treatment Upcoming Encounters Date Type Department Care Team (Late st Contact Info) Description 01/07/2024 11:00 AM EDT Imaging Radiology [facility] [place] [address] [place] [address] 07/17/2024 1:00 PM EST Office Visit Rheumatology [place] Federico Felix [address] [facility] [place] [address] Giuliano Tolentino MD [address] [facility] [address] Health Maintenance Due Date Last Done Comments DXA Scan 1943 GFR 1943 Depression Screening 1955 Albumin/Creatinine Ratio 1961 CKD HGB USE SMARTSET 35444 1961 CKD PHOS USE SMARTSET 69361 1961 DTaP,Tdap,and Td Vaccines (1 - Tdap) [...] filedocumented as of this encounter Care Teams Glass Designer Relationship Specialty Start Date End Date Peter Stark MD [address] [place] [address] PCP - General 07/12/05 documented as of this encounter
--- OUTSIDE RECORDS SUMMARY | 2024-01-04 18:49 | External Medical Summary | Summary of Care ---
Author Name Unknown Organization [facility] Address [address] [facility] 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 Encounter Details Date Type Department Care Team (Latest Contact Info) Description 07/12/2023 10:40 AM EST Office Visit Rheumatology [place] Federico Felix [address] [facility] [place] [address] Giuliano Tolentino MD [address] [place] [address] Scleroderma (HCC)*; Stage 3 chronic kidney disease, unspecified whether stage 3a or 3b CKD (HCC); Raynaud's disease without gangrene; Primary osteoarthritis of both knees Allergies Active Allergy Reactions Criticality Noted Date Comments Atropine 07/13/2022 Cimetidine Medium 07/13/2022 Other reaction(s): Hives Duloxetine Hcl 12/12/2018 swelling Diltiazem 07/19/2005 Nightmares Doxepin 07/19/2005 Nightmares Doxycycline 06/17/2020 " severe heartburn" Duloxetine 07/13/2022 Hydrocodone Medium 07/13/2022 Other reaction(s): Dizziness, Dizzy Hyoscyamine 07/13/2022 Iodinated Contrast Media 12/12/2018 Iodine 07/13/2022 Ketoprofen 06/17/2020 Nitrofuran Derivatives 07/19/2005 rash Nsaids 07/19/2005 Phenobarbital-Belladonna Alk 06/17/2020 Phenobarbital-Belladonna Alk 07/12/2023 Pantoprazole 07/19/2005 Dizzy Regadenoson 12/12/2018 Loss of vision, B/P dropped Scopolamine 07/13/2022 Cimetidine 07/19/2005 Hydrocodone-Acetaminophen 12/12/2018 Dizziness, diaphoretic Lisinopril 07/19/2005 Swelling documented as of this encounter (statuses as of 07/12/2023) Medications Medication Sig Dispensed Refills Start Date End Date Status NEXIUM 40 MG PO CPDR 1 tablet daily 30 0 07/19/2005 Active LORAzepam (ATIVAN) 0.5 MG Tablet 1 twice daily 0 11/24/2018 Active Cholecalciferol (VITAMIN D3) 58537 units Capsule Take 1 Capsule by mouth. 1 monthly 0 Active amLODIPine Besylate 5 MG Oral Tablet (NORVASC) 1 Tablet. 1 daily 0 04/21/2020 Active Metoprolol Succinate ER 25 MG Oral Tablet Extended Release 24 Hour (toPROL XL) 0 02/01/2021 Active Amoxicillin 500 MG Oral Capsule (Amoxil) As needed for dentist 0 06/12/2021 Active Linzess 145 MCG Oral Capsule 1 daily 0 05/29/2021 Active Gabapentin 300 MG Oral Capsule (Neurontin) 0 07/04/2022 Active Losartan Potassium 50 MG Oral Tablet (Cozaar) 0 05/09/2022 Active Furosemide 20 MG Oral Tablet (Lasix) Take by mouth daily. 0 Active hydrochlorothiazid e (HYDRODIURIL) 12.5 MG Tablet Take 1 Tablet by mouth in the morning. 0 07/12/2023 Discontinued( Medication List Clean Up) documented as of this encounter (statuses as of 07/12/2023) Active Problems Problem Noted Date Diagnosed Date Medical marijuana use 06/16/2021 Raynaud's disease without gangrene 06/12/2019 Primary osteoarthritis of both knees 12/12/2018 Scleroderma 12/12/2018 Fibromyalgia Kidney disease, chronic, stage III (GFR 30-59 ml /min) IBS (irritable bowel syndrome) HTN (hypertension) GERD (gastroesophageal reflux disease) Anxiety documented as of this encounter (statuses as of 07/12/2023) Immunizations Name Administration Dates Next Due COVID-19 [...] Date Smoking Tobacco: Never Smokeless Tobacco: Never Tobacco Cessation:Counseling Given: Not Answered Alcohol Use Standard Drinks/Week Comments No 0 [...] Sign Reading Time Taken Comments Blood Pressure 160/70 07/12/2023 10:47 AM EST Pulse - - Temperature 36.6 C (97.9 F) 07/12/2023 10:[address] Respiratory Rate - - Oxygen Saturation - - Inhaled Oxygen Concentration - - Weight - - Height - - Body Mass Index - - documented in this encounter Progress Notes * Giuliano Tolentino MD - 07/12/2023 10:56 AM EST Subjective: Patient seen today for further follow up evaluation of osteoarthritis, raynaud's, scleroderma - limited. Since the last visit she is now wearing a knee brace. She was having issues with falls and sees ortho ([facility]) for her knees and then evaluated for the weakness and noted to have back disease. She states [place] neurosurgery suggested surgery but she is holding off. Getting epidurals. Note scanned in stated L3-4 radiculopathy. She has numbness around her right knee. As for her scleroderma - raynaud's is pretty stable. Remains on Norvasc. She does not have any shortness of breath or dysphagia.No significant skin thickening to her hands. She does not recall the last time she had a bone density test but seeing her PCP shortly. Reports that she did get her flu vaccine but not any recent COVID vaccines. No RSV vaccine. Musculoskeletal ROS: . Abnormal: joint pain and back pain . Pain scale (0-10): 0 Other ROS: . Constitutional: normal . Head normal . Eyes: normal . Ears, nose, throat, mouth: normal . Cardiovascular: normal . Respiratory: normal . Gastrointestinal: normal . Genitourinary: normal . Skin: fingers turning white and cyanosis of fingers . Neurologic: numbness All other ROS reviewed and negative Social History: Social History Tobacco Use Smoking status: Never Smokeless tobacco: Never Substance Use Topics Alcohol use: No Vaping/E-Cigarette Use Vaping/E-Cigarette Use Never User Vaping/E-Cigarette Substances Vaping/E-Cigarette Devices Current Outpatient Medications Medication Sig Dispense Refill LORAzepam (ATIVAN) 0.5 MG Tablet 1 twice daily Cholecalciferol (VITAMIN D3) 17477 units Capsule Take 1 Capsule by mouth. 1 monthly amLODIPine Besylate 5 MG Oral Tablet (NORVASC) 1 Tablet. 1 daily Metoprolol Succinate ER 25 MG Oral Tablet Extended Release 24 Hour (toPROL XL) Linzess 145 MCG Oral Capsule 1 daily Gabapentin 300 MG Oral Capsule (Neurontin) Losartan Potassium 50 MG Oral Tablet (Cozaar) Furosemide 20 MG Oral Tablet (Lasix) Take by mouth daily. NEXIUM 40 MG PO CPDR 1 tablet daily (Patient not taking: Reported on 07/13/2022) 30 0 Amoxicillin 500 MG Oral Capsule (Amoxil) As needed for dentist (Patient not taking: Reported on 07/13/2022) No current facility-administered medications for this visit. Physical Exam: BP 160/70 (BP Site: Right Arm, BP Position: Sitting) | Temp 36.6 C (97.9 F) (Tympanic) General: alert, no distress, and well nourished HENT: normocephalic, external ears normal, no mucosal erythema, no mucosal edema, moist mucosa, no oral ulcers Eye Exam: PERRL, EOMI, conjunctiva are pink and non-injected, sclera clear Neck: supple, no adenopathy, thyroid normal size, non-tender, without nodularity Lymph: no palpable lymphadenopathy Heart: regular rate & rhythm and no gallops Lungs: clear to auscultation , no rales, wheezes or rhonchi Abdomen: abdomen soft, non-tender, and normal bowel sounds Skin: No significant skin thickening noted to the hands. No white color or bluish discoloration to the fingers. Musculoskeletal Exam: \\Right knee in hinged brace Good hip flexor strength along with deltoid strength Mild thoracic kyphosis Assessment: M34.9 Scleroderma ([facility]) (primary encounter diagnosis) N18.30 Stage 3 chronic kidney disease, unspecified whether stage 3a or 3b CKD ([facility]) I73.00 Raynaud's disease without gangrene M17.0 Primary osteoarthritis of both knees Her Raynaud's and scleroderma are stable. She will continue with Norvasc and conservative measures for Raynaud's. Continue care with Orthopedics and Neurosurgery for her back and knee. Asked her to discuss bone density testing with her PCP given her falls. She may need to consider treatment for oste oporosis pending DEXA results. Also spent time discussing getting the updated COVID vaccine and RSVvaccine. Plan: 1. Continue conservative measures for Raynaud's 2. Continue Norvasc 3. Continue care with Orthopedics and Neurosurgery 4. Would get updated DEXA if she has not had 1 in the last 2 years has given her fall risk she may need treatment for osteoporosis. 5. Return to clinic in 1 year Giuliano Tolentino MD Department of Rheumatology documented in this encounter Nursing Notes * Desire Alvares LPN - 07/12/2023 10:45 AM EST Chief Complaint Patient presents with Rheum Follow Up Follow up - scleroderma documented in this encounter Plan of Treatment Upcoming Encounters Date Type Department Care Team (Late st Contact Info) Description 07/17/2024 1:00 PM EST Office [place] [address] [place] [address] Giuliano Tolentino MD [address] [facility] [address] Health Maintenance Due Date Last Done Comments DXA Scan 1943 GFR 1943 Depression Screening 1955 Albumin/Creatinine Ratio 1961 CKD HGB USE SMARTSET 90264 1961 CKD PHOS USE SMARTSET 75255 1961 Hepatitis C Screening 1961 DTaP,Tdap,and Td Vaccines (1 - Tdap) 1962 Zoster Vaccines (1 of 2) 1993 Pneumococcal Vaccine: 65+ Years (2 - PCV) 2008 07/02/2007 COVID-19 Vaccine (3 [...] as of this encounter Visit Diagnoses Diagnosis Scleroderma (HCC)- Primary Systemic sclerosis Stage 3 chronic kidney disease, unspecified whether stage 3a or 3b CKD (HCC) Raynaud's disease without gangrene Primary osteoarthritis of both knees Primary localized osteoarthrosis, lower leg documented in this encounter Care Teams Panel Machine Tender Relationship Specialty Start Date End Date Peter Stark MD [address] [facility] [address] PCP - General 07/12/05 documented as of this encounter
--- OUTSIDE RECORDS SUMMARY | 2024-01-04 18:49 | External Medical Summary | Summary of Care ---
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 Encounter Details Date Type Department Care Team (Latest Contact Info) Description 07/12/2023 10:40 AM EST Office Visit Rheumatology [place] Federico Felix [address] [facility] [place] [address] Giuliano Tolentino MD [address] [place] [address] Scleroderma (HCC)*; Stage 3 chronic kidney disease, [...] as of this encounter (statuses as of 07/18/2023) Medications Medication Sig Dispensed Refills Start Date End Date Status NEXIUM 40 MG PO CPDR 1 tablet daily 30 0 07/19/2005 Active LORAzepam (ATIVAN) 0.5 MG Tablet 1 twice daily 0 11/24/2018 Active Cholecalciferol (VITAMIN D3) 76287 units Capsule Take 1 Capsule by mouth. [...] as of this encounter (statuses as of 07/18/2023) Active Problems Problem Noted Date Diagnosed Date Medical marijuana use 06/16/2021 Raynaud's disease without gangrene 06/12/2019 Primary osteoarthritis of both knees 12/12/2018 Scleroderma 12/12/2018 Fibromyalgia Kidney disease, chronic, stage III (GFR 30-59 ml /min) IBS (irritable bowel syndrome) HTN (hypertension) GERD (gastroesophageal reflux disease) Anxiety documented as of this encounter (statuses as of 07/18/2023) Immunizations Name Administration Dates Next Due COVID-19 [...] noted to have back disease. She states [place] neurosurgery suggested surgery but she is holding [...] Tablet 1 twice daily Cholecalciferol (VITAMIN D3) 42970 units Capsule Take 1 Capsule by mouth. [...] strength Mild thoracic kyphosis Assessment: M34.9 Scleroderma ([facility]) (primary encounter diagnosis) N18.30 Stage 3 chronic kidney disease, unspecified whether stage 3a or 3b CKD ([facility]) I73.00 Raynaud's disease without gangrene M17.0 Primary [...] 07/17/2024 1:00 PM EST Office [address]ology [address] [place] [address] Giuliano Tolentino MD [address] [facility] [address] Health Maintenance Due Date Last Done Comments DXA Scan 1943 GFR 1943 Depression Screening 1955 Albumin/Creatinine Ratio 1961 CKD HGB USE SMARTSET 35664 1961 CKD PHOS USE SMARTSET 49742 1961 Hepatitis C Screening 1961 DTaP,Tdap,and Td [...] leg documented in this encounter Care Teams House Steward/Stewardess Relationship Specialty Start Date End Date Peter Stark MD [address] [facility] [address] PCP - General 07/12/05 documented as of this encounter
--- OUTSIDE RECORDS SUMMARY | 2024-01-04 18:49 | External Medical Summary | Summary of Care ---
Author Name Unknown Organization [facility] Address [address] [facility] [address] Phone [phone] Care Team Providers Care Mower Sharpener Name Role Phone Peter Stark MD Primary Care Provider [phone] Reason for Visit * Reason Onset Date Comments Appointment 08/06/2023 Encounter Details Date Type Department Care Team (Late st Contact Info) Description 08/06/2023 Telephone Gastroenterology, [facility] [address] [place] [address] Aida Rashid CRNP [address] [place] [address] Appointment Allergies Active Allergy Reactions Criticality Noted Date [...] as of this encounter (statuses as of 08/06/2023) Medications Medication Sig Dispensed Refills Start Date End Date Status NEXIUM 40 MG PO CPDR 1 tablet daily 30 0 07/19/2005 Active LORAzepam (ATIVAN) 0.5 MG Tablet 1 twice daily 0 11/24/2018 Active Cholecalciferol (VITAMIN D3) 91606 units Capsule Take 1 Capsule by mouth. [...] 300 MG Oral Capsule (Neurontin) 0 07/04/2022 Activ e Losartan Potassium 50 MG Oral Tablet (Cozaar) 0 05/09/2022 Active Furosemide 20 MG Oral Tablet (Lasix) Take by mouth daily. 0 Active documented as of this encounter (statuses as of 08/06/2023) Active Problems Problem Noted Date Diagnosed Date Medical marijuana use 06/16/2021 Raynaud's disease without gangrene 06/12/2019 Primary osteoarthritis of both knees 12/12/2018 Scleroderma 12/12/2018 Fibromyalgia Kidney disease, chronic, stage III (GFR 30-59 ml /min) IBS (irritable bowel syndrome) HTN (hypertension) GERD (gastroesophageal reflux disease) Anxiety documented as of this encounter (statuses as of 08/06/2023) Immunizations Name Administration Dates Next Due COVID-19 [...] encounter Miscellaneous Notes * Telephone Encounter - Aida Rashid CRNP - 08/06/2023 9:23 AM EST Pls arrange EUS in 6 to 8 weeks for this pt. Admitted recently at [facility] w pancreatitis, MRCP showed pancreas duct dilation w stricture. FILIPPO Alexander documented in this encounter Plan of Treatment Upcoming Encounters Date Type Department Care Team (Late st Contact Info) Description 07/17/2024 1:00 PM EST Office Visit Rheumatology [place] Federico Felix [address] [place] [address] Giuliano Tolentino MD [address] [facility], [place] [id number] Scheduled Orders Name Type Priority Associated Diagnoses Orde r Schedule US ENDOSCOPIC Medical Imaging Routine Other acute pancreatitis without infection or necrosis Ordered: 08/06/2023 Health Maintenance Due Date Last Done Comments DXA Scan 1943 GFR 1943 Depression Screening 1955 Albumin/Creatinine Ratio 1961 CKD HGB USE SMARTSET 66849 1961 CKD PHOS USE SMARTSET 32495 1961 Hepatitis C Screening 1961 DTaP,Tdap,and Td [...] Primary documented in this encounter Care Teams Mower Sharpener Relationship Specialty Start Date End Date Peter Stark MD [address] [place] [address] PCP - General 07/12/05 documented as of this encounter
--- OUTSIDE RECORDS SUMMARY | 2024-01-04 18:49 | External Medical Summary | Summary of Care ---
Author Name Unknown Organization [facility] Address [address] [facility] [address] Phone [phone] Care Team Providers Care Supervisor Riprap Placing Name Role Phone Peter Stark MD Primary Care Provider [phone] [phone] Reason for Visit * Reason Onset Date Comments Appointment 08/06/2023 Encounter Details Date Type Department Care Team (Late st Contact Info) Description 08/06/2023 Telephone Gastroenterology, [facility] [address] [place] [address] Aida Rashid CRNP [address] [place] [address] Appointment Allergies Active Allergy Reactions Criticality Noted [...] as of this encounter (statuses as of 08/08/2023) Medications Medication Sig Dispensed Refills Start Date End Date Status NEXIUM 40 MG PO CPDR 1 tablet daily 30 0 07/19/2005 Active LORAzepam (ATIVAN) 0.5 MG Tablet 1 twice daily 0 11/24/2018 Active Cholecalciferol (VITAMIN D3) 94438 units Capsule Take 1 Capsule by mouth. [...] as of this encounter (statuses as of 08/08/2023) Active Problems Problem Noted Date Diagnosed Date Medical marijuana use 06/16/2021 Raynaud's disease without gangrene 06/12/2019 Primary osteoarthritis of both knees 12/12/2018 Scleroderma 12/12/2018 Fibromyalgia Kidney disease, chronic, stage III (GFR 30-59 ml /min) IBS (irritable bowel syndrome) HTN (hypertension) GERD (gastroesophageal reflux disease) Anxiety documented as of this encounter (statuses as of 08/08/2023) Immunizations Name Administration Dates Next Due COVID-19 [...] Telephone Encounter - Bonnie Suarez OSA - 08/08/2023 3:11 PM EST Per PAT can be done at . Spoke to pt's , states pt is still inpt at [facility] and doesn't expect her to be discharged for several days. Pollo'd EUS 10/07/23 at . * Telephone Encounter - Bonnie Suarez OSA - 08/08/2023 1:47 PM EST Checking with PAT to see where pt needs to be done, or [facility]. * Telephone Encounter - Aida Rashid CRNP - 08/06/2023 9:23 AM EST Pls arrange EUS in 6 to 8 weeks for this pt. Admitted recently at [facility] w pancreatitis, MRCP showed pancreas duct dilation w stricture. FILIPPO Alexander documented in this encounter Plan of Treatment Upcoming Encounters Date Type Department Care Team (Latest Contact Info) Description 10/07/2023 11:15 AM EDT Hospital Encounter ENDO [facility], Endoscopy Room [facility] [address] [place] [phone] She Garcia MD [address] [place] [address] 10/07/2023 11:15 AM EDT - 10/07/2023 12:15 PM EDT Surgery ENDO [facility], Endoscopy Room [facility] [address] [place] [phone] She Garcia MD [address] [place] [address] ESOPHAGOGASTRODUODENOSCOPY (EGD), FLEXIBLE, TRANSORAL, ENDOSCOPIC ULTRASOUND 07/17/2024 1:00 PM EST Office Visit Rheumatology [place] Federico Felix [address] [place] [address] Giuliano Tolentino MD [address] [facility], [place] [address] Scheduled Orders Name Type Priority Associated Diagnoses Orde r Schedule US ENDOSCOPIC Medical Imaging Routine Other acute pancreatitis without infection or necrosis Ordered: 08/06/2023 Scheduled Procedures Name Priority Associated Diagnoses Date/Ti me ESOPHAGOGASTRODUODENOSCOPY ( EGD), FLEXIBLE, TRANSORAL, ENDOSCOPIC ULTRASOUND Pancreatitis 10/07/2023 11:15 AM EDT Health Maintenance Due Date Last Done Comments DXA Scan 1943 GFR 1943 Depression Screening 1955 Albumin/Creatinine Ratio 1961 CKD HGB USE SMARTSET 71877 1961 CKD PHOS USE SMARTSET 08641 1961 Hepatitis C Screening 1961 DTaP,Tdap,and Td Vaccines (1 - Tdap) 1962 Zoster Vaccines (1 of 2) 1993 Pneumococcal Vaccine: 65+ Years (2 - PCV) 2008 07/02/2007 COVID-19 Vaccine (3 - 2022-24 season) 2023 10/08/2020, 09/10/2020 Influenza Vaccine (FLU [...] acute pancreatitis without infection or necrosis- Primary Pancreatitis Acute pancreatitis documented in this encounter Care Teams Supervisor Riprap Placing Relationship Specialty Start Date End Date Peter Stark MD [address] [place] [address] PCP - General 07/12/05 documented as of this encounter
--- OUTSIDE RECORDS SUMMARY | 2024-01-04 18:49 | External Medical Summary | Summary of Care ---
Author Name Unknown Organization [facility] Address [address] [facility] [place] [address] Phone [phone] Care Team Providers Care Cut Off Saw Operator Name Role Phone Peter Stark MD Primary Care Provider [phone] Reason for Referral * Precert (Within 10 days (routine)) - Authorized Specialty Diagnoses / Procedures Referred By Andrew hickey Referred To Contact Radiology Diagnoses Other acute pancreatitis without infection or necrosis Procedures MRI PANCREAS W WO CONTRAST She Garcia MD [email or web address] [place] [id number] Referral ID Status Reason Start Date Expiration Date V isits Requested Visits Authorized [id number] Authorized 01/07/2024 999 [id number] Encounter Details Date Type Department Care Team (Late st Contact Info) Description 10/07/2023 Telephone Gastroenterology, [facility] [address] [place] [address] She Garcia MD [email or web address] [place] [address] Allergies Active Allergy Reactions Criticality Noted Date [...] as of this encounter (statuses as of 10/07/2023) Medications Medication Sig Dispensed Refills Start Date End Date Status NEXIUM 40 MG PO CPDR Take by mouth daily before dinner. 30 0 07/19/2005 Suspended LORAzepam (ATIVAN) 0.5 MG Tablet 1 twice daily 0 11/24/2018 Suspende d Cholecalciferol (VITAMIN D3) 60227 units Capsule Take 1 Capsule by mouth. 1 monthly 0 Suspended amLODIPine Besylate 5 MG Oral Tablet (NORVASC) 1 Tablet every morning. 1 daily 0 04/21/2020 Suspended Metoprolol Succinate ER 25 MG Oral Tablet Extended Release 24 Hour (toPROL XL) 2 times a day. 0 02/01/2021 Susp ended Amoxicillin 500 MG Oral Capsule (Amoxil) As needed for dentist 0 06/12/2021 Suspended Linzess 145 MCG Oral Capsule 1 daily 0 05/29/2021 Suspended Gabapentin 300 MG Oral Capsule (Neurontin) As needed 0 07/04/2022 Suspended Losartan Potassium 50 MG Oral Tablet (Cozaar) at bedtime. 0 05/09/2022 Suspended Furosemide 20 MG Oral Tablet (Lasix) Take by mouth daily. 0 Suspended documented as of this encounter (statuses as of 10/07/2023) Active Problems Problem Noted Date Diagnosed Date Medical marijuana use 06/16/2021 Raynaud's disease without gangrene 06/12/2019 Primary osteoarthritis of both knees 12/12/2018 Scleroderma 12/12/2018 Fibromyalgia Kidney disease, chronic, stage III (GFR 30-59 ml /min) IBS (irritable bowel syndrome) HTN (hypertension) GERD (gastroesophageal reflux disease) Anxiety documented as of this encounter (statuses as of 10/07/2023) Immunizations Name Administration Dates Next Due COVID-19 [...] 07/17/2024 1:00 PM EST Office Visit Rheumatology [address], [place] [address] [place] [address] Giuliano Tolentino MD [address] [place] [address] Scheduled Orders Name Type Priority Associated Diagnoses Orde r Schedule MRI PANCREAS W WO CONTRAST Medical Imaging Routine Other acute pancreatitis without infection or necrosis Expected: 01/07/2024, Expires: 11/06/2024 Scheduled Procedures Name Priority Associated Diagnoses Date/Ti me ESOPHAGOGASTRODUODENOSCOPY ( EGD), FLEXIBLE, TRANSORAL, ENDOSCOPIC ULTRASOUND Pancreatitis 10/07/2023 10:49 AM EDT Health Maintenance Due Date Last Done Comments DXA Scan 1943 GFR 1943 Depression Screening 1955 Albumin/Creatinine Ratio 1961 CKD HGB USE SMARTSET 26600 1961 CKD PHOS USE SMARTSET 92958 1961 DTaP,Tdap,and Td Vaccines (1 - Tdap) [...] Primary documented in this encounter Care Teams Cut Off Saw Operator Relationship Specialty Start Date End Date Peter Stark MD [address] [facility] [place] [address] PCP - General 07/12/05 documented as of this encounter
--- OUTSIDE RECORDS SUMMARY | 2024-01-04 18:49 | External Medical Summary | Summary of Care ---
Author Name Unknown Organization [facility] Address [address] [facility] [place] [address] Phone [phone] Care Team Providers Care Telehealth Case Manager Name Role Phone Peter Stark MD Primary Care Provider [phone] Reason for Visit * Reason Comments Post-Op Lap nick Encounter Details Date Type Department Care Team (Late st Contact Info) Description 08/22/2023 9:30 AM EST Office Visit General Surgery, [facility] [address] [place] [address] Alvin Ruggiero MD [address] [place] [address] S/P laparoscopic cholecystectomy* Allergies Active Allergy Reactions Criticality Noted Date [...] as of this encounter (statuses as of 08/22/2023) Medications Medication Sig Dispensed Refills Start Date End Date Status NEXIUM 40 MG PO CPDR Take by mouth. 30 0 07/19/2005 Active LORAzepam (ATIVAN) 0.5 MG Tablet 1 twice daily 0 11/24/2018 Active Cholecalciferol (VITAMIN D3) 72891 units Capsule Take 1 Capsule by mouth. [...] as of this encounter (statuses as of 08/22/2023) Active Problems Problem Noted Date Diagnosed Date Medical marijuana use 06/16/2021 Raynaud's disease without gangrene 06/12/2019 Primary osteoarthritis of both knees 12/12/2018 Scleroderma 12/12/2018 Fibromyalgia Kidney disease, chronic, stage III (GFR 30-59 ml /min) IBS (irritable bowel syndrome) HTN (hypertension) GERD (gastroesophageal reflux disease) Anxiety documented as of this encounter (statuses as of 08/22/2023) Immunizations Name Administration Dates Next Due COVID-19 [...] Sign Reading Time Taken Comments Blood Pressure 193/77 08/22/2023 9:28 AM EST Pulse 69 08/22/2023 9:28 AM EST Temperature 36.2 C (97.2 F) 08/22/2023 9:28 AM ES T Respiratory Rate - - Oxygen Saturation 100% 08/22/2023 9:28 AM EST Inhaled Oxygen Concentration - - Weight 55.1 kg (121 lb 6.4 oz) 08/22/2023 9:28 A M EST Height - - Body Mass Index 20.84 02/23/2021 8:27 AM EDT documented in this encounter Progress Notes * Alvin Ruggiero MD - 08/22/2023 9:36 AM EST Marisel Galarza is s/p a laparascopic cholecystectomy on 08/13/2023. This female is doing well post-op. Pt. is tolerating a regular diet, having bowel movements, and has good pain control. No postoperative concerns. PE: Blood pressure 193/77, pulse 69, temperature 36.2 C (97.2 F), weight 55.1 kg (121 lb 6.4 oz), SpO2 100%. Gen: looks well, alert Abdomen: soft, nontender, non-distended, incisions clean, dry and intact Path: Chronic cholecystitis Assessment: No issues following laparascopic cholecystectomy. Return to full activity in three weeks following surgery. If diarrhea occurs, discussed benefit of a low fat diet for six weeks. Plan: Followup in the office PRN or if questions arise. Alvin Ruggiero MD 08/22/2023 9:36 AM documented in this encounter Nursing Notes * Andreia Vasquez LPN - 08/22/2023 9:25 AM EST Patient is s/p lap nick on 08/13. C/o weakness, mild nausea without vomiting. Stools have been loose but patient states that is her baseline. documented in this encounter Plan of Treatment Upcoming Encounters Date Type Department Care Team (Latest Contact Info) Description 10/07/2023 11:15 AM EDT Hospital Encounter ENDO [facility], Endoscopy Room [facility] [address] [place] [phone] She Garcia MD [address] [place] [address] 10/07/2023 11:15 AM EDT - 10/07/2023 12:15 PM EDT Surgery ENDO [facility], Endoscopy Room [facility] [address] [phone] She Garcia MD [address] [place] [address] ESOPHAGOGASTRODUODENOSCOPY (EGD), FLEXIBLE, TRANSORAL, ENDOSCOPIC ULTRASOUND 07/17/2024 1:00 PM EST Office Visit Rheumatology [employer] Federico Felix [address] [place] [address] Giul[facility] [address] [facility] [address] Scheduled Procedures Name Priority Associated Diagnoses Date/Ti me ESOPHAGOGASTRODUODENOSCOPY ( EGD), FLEXIBLE, TRANSORAL, ENDOSCOPIC ULTRASOUND Pancreatitis 10/07/2023 11:15 AM EDT Health Maintenance Due Date Last Done Comments DXA Scan 1943 GFR 1943 Depression Screening 1955 Albumin/Creatinine Ratio 1961 CKD HGB USE SMARTSET 21202 1961 CKD PHOS USE SMARTSET 36926 1961 DTaP,Tdap,and Td Vaccines (1 - Tdap) [...] as of this encounter Visit Diagnoses Diagnosis S/P laparoscopic cholecystectomy- Primary Other postprocedural status Pancreatitis Acute pancreatitis documented in this encounter Care Teams Telehealth Case Manager Relationship Specialty Start Date End Date ePter Stark MD [address] [place] [address] PCP - General 07/12/05 documented as of this encounter
--- OUTSIDE RECORDS SUMMARY | 2024-01-04 18:49 | External Medical Summary | Summary of Care ---
Author Name Unknown Organization [facility] [address] [facility] [place] [address] Phone [phone] Care Team Providers Care Merchandising Lead Name Role Phone Peter Stark MD Primary Care Provider [phone] Reason for Visit * Reason Onset Date Comments Appointment 08/06/2023 Encounter Details Date Type Department Care Team (Late st Contact Info) Description 08/06/2023 Telephone Gastroenterology, [facility] [address] [place] [address] Aida Rashid CRNP [address] [place] [address] Appointment Allergies Active Allergy Reactions Criticality Noted [...] daily 0 11/24/2018 Active Cholecalciferol (VITAMIN D3) 87542 units Capsule Take 1 Capsule by mouth. [...] see where pt needs to be done, [place] or [place]. * Telephone Encounter - Aida Rashid CRNP - 08/06/2023 9:23 AM EST Pls arrange EUS in 6 to 8 weeks for this pt. Admitted recently at [facility] w pancreatitis, MRCP showed pancreas duct dilation w stricture. FILIPPO Alexander documented in this encounter Plan of Treatment Upcoming Encounters Date Type Department Care Team (Late st Contact Info) Description 07/17/2024 1:00 PM EST Office Visit Rheumatology [address] [place] [address] [place] [address] Giuliano Tolentino MD [address] [facility] [place] [address] Scheduled Orders Name Type Priority Associated Diagnoses Orde r Schedule US ENDOSCOPIC Medical Imaging Routine Other acute pancreatitis without infection or necrosis Ordered: 08/06/2023 Health Maintenance Due Date Last Done Comments DXA Scan 1943 GFR 1943 Depression Screening 1955 Albumin/Creatinine Ratio 1961 CKD HGB USE SMARTSET 41712 1961 CKD PHOS USE SMARTSET 68247 1961 Hepatitis C Screening 1961 DTaP,Tdap,and Td [...] Primary documented in this encounter Care Teams Merchandising Lead Relationship Specialty Start Date End Date Peter Stark MD [address] [place] [address] PCP - General 07/12/05 documented as of this encounter
--- OUTSIDE RECORDS SUMMARY | 2024-01-04 18:49 | External Medical Summary | Summary of Care ---
Author Name Unknown Organization [facility] Address [address] [facility] [place] [address] Phone [phone] Care Team Providers Care Conveyor Weigher Operator Name Role Phone Peter Stark MD Primary Care Provider [phone] [phone] Reason for Visit * Reason Onset Date Comments Pre Op Discussion 09/24/2023 Encounter Details Date Type Department Care Team (Late st Contact Info) Description 09/24/2023 Telephone OR [facility], Operating Room [facility] [address] [place] [phone] She Garcia MD [address] [place] [address] Pre Op Discussion Allergies Active Allergy Reactions Criticality Noted Date [...] as of this encounter (statuses as of 09/26/2023) Medications Medication Sig Dispensed Refills Start Date End Date Status NEXIUM 40 MG PO CPDR Take by mouth daily before dinner. 30 0 07/19/2005 Active LORAzepam (ATIVAN) 0.5 MG Tablet 1 twice daily 0 11/24/2018 Active Cholecalciferol (VITAMIN D3) 48192 units Capsule Take 1 Capsule by mouth. [...] as of this encounter (statuses as of 09/26/2023) Active Problems Problem Noted Date Diagnosed Date Medical marijuana use 06/16/2021 Raynaud's disease without gangrene 06/12/2019 Primary osteoarthritis of both knees 12/12/2018 Scleroderma 12/12/2018 Fibromyalgia Kidney disease, chronic, stage III (GFR 30-59 ml /min) IBS (irritable bowel syndrome) HTN (hypertension) GERD (gastroesophageal reflux disease) Anxiety documented as of this encounter (statuses as of 09/26/2023) Immunizations Name Administration Dates Next Due COVID-19 [...] on file documented as of this encounter Plan of Treatment Upcoming Encounters Date Type Department Care Team (Latest Contact Info) Description 10/07/2023 11:15 AM EDT Hospital Encounter ENDO [facility], Endoscopy Room [facility] [address] [place] [phone] She Garcia MD [address] [place] [address] 10/07/2023 11:15 AM EDT - 10/07/2023 12:15 PM EDT Surgery ENDO [facility], Endoscopy Room [facility] [address] [place] [phone] She Garcia MD [address] [place] [address] ESOPHAGOGASTRODUODENOSCOPY (EGD), FLEXIBLE, TRANSORAL, ENDOSCOPIC ULTRASOUND 07/17/2024 1:00 PM EST [facility] [place] [address] [place] [address] Giuliano Tolentino MD [facility] [facility], [place] [address] Scheduled Procedures Name Priority Associated Diagnoses Date/Ti me ESOPHAGOGASTRODUODENOSCOPY ( EGD), FLEXIBLE, TRANSORAL, ENDOSCOPIC ULTRASOUND Pancreatitis 10/07/2023 11:15 AM EDT Health Maintenance Due Date Last Done Comments DXA Scan 1943 GFR 1943 Depression Screening 1955 Albumin/Creatinine Ratio 1961 CKD HGB USE SMARTSET 03412 1961 CKD PHOS USE SMARTSET 95395 1961 DTaP,Tdap,and Td Vaccines (1 - Tdap) [...] filedocumented as of this encounter Care Teams Conveyor Weigher Operator Relationship Specialty Start Date End Date Peter Stark MD [address] [place] [address] PCP - General 07/12/05 documented as of this encounter
--- NOTE | 2024-01-04 19:01 | History & Physical Report ---
Date of Service January 04, 2024 Assessment & Plan (1) Acute diverticulitis: Plan: Abdominal pain x 2 weeks, with an acute exacerbation the evening of 01/02 Patient recently completed an outpatient course of Augmentin x 7 days for diverticulitis; failure of outpatient treatment Leukocytosis at 18.43 with neutrophil predominance; afebrile, but patient reports low-grade fever at home before coming in A/P CT re-confirmed acute diverticulitis Keep n.p.o. for now except p.o. meds IVF resuscitation with Plasma-Lyte at 100mL/hr x 4 bags Ceftriaxone 2000 mg IV q24h Metronidazole 500 mg IV q8h Pain control: Acetaminophen IV q8h as needed for pain 15 Dilaudid IV q4h as needed for pain 6-10 A.m. CBC, BMP, mag (2) Lyme disease: Plan: Patient was bit by a tick 1 week ago Intial Lyme screen (+) on arrival Tickborne panel ordered, pending Doxycycline 100 mg IV BID (3) Hypokalemia: Plan: Mild; K 3.1 on arrival K rider 10mEq x 1 Hold am Lasix AM BMP (4) Chronic kidney disease, stage III (moderate): Plan: BUN 14, creatinine 1.29 (around baseline), EGFR 39.1 Avoid nephrotoxic agents where possible Hold losartan for now (CrCl ~ 30.0) (5) GERD without esophagitis: Plan: Continue lansoprazole or equivalent Tums as needed for heartburn Plan [facility]: [facility] Full code Keep n.p.o. except p.o. medications, then advance diet in 24-48 hours as tolerated VTE PX: Heparin 5000u SQ q12h History of Present Illness Chief Complaint: Abdominal pain Primary Care Provider: Peter Joiner is a pleasant 78-year-old female with PMH stage III CKD, PVD, hyperlipidemia, GERD, fibromyalgia, depression, pancreatitis, gallstones, and diverticulitis. She presented for fever, bloating, diarrhea, and abdominal pain that began yesterday on 01/02. Patient first developed abdominal pain 2 weeks ago and was diagnosed with diverticulitis. She was given a course of Augmentin for her diverticulitis which she completed yesterday. She endorses LLQ pain, which she rates 6/10 in the ED, and even worse when she has intermittent abdominal cramping. She characterized the pain as dull, achy, and constant. She took Tylenol last night for the fever, which helped with the fever but not the pain. Pain is not positional. She has not had anything to eat since last night. No recent change in diet since July. Patient is normally on a low fiber diet. She does have a history of diverticulitis, with the last occurrence occurring 2 years ago at [place]. Temperature last night at home was low-grade (99.3 F), but she normally runs fairly low. Of note, she also notes that she was bit by a tick bite 1 week ago. She was not prescribed doxycycline by her PCP, she does have a history of severe heartburn when taking doxycycline; instead was covered with Augmentin. No history of Lyme disease to her knowledge. She has not noticed any rashes or bull's-eye's on her body. She does have an upcoming appointment on Saturday; she was post to have an MRI outpatient to follow-up for her pancreatitis, which she had in July 2023. She denies smoking, tobacco use, and alcohol use. Patient is hypertensive at 173/88 at time of admission; vitals otherwise stable. ED course: Maribel blackwell 10mEq x 1 NSS 1000 mL IV ROS: Patient endorses fever, chills, PORTILLO, bloating, LLQ abdominal pain, abdominal cramping, intermittent heartburn (a couple times per week; often resolves with Tums or GasEx), or diarrhea (started after Augmentin; was constipated before this). Patient denies night-sweats, dizziness, lightheadedness, change in vision, rashes, new joint pain, chest pain, chest palpitations, SOB, cough, N/V, blood in urine/stool, dysuria, burning with urination, or numbness/tingling in the arms or legs. Allergies Allergy/AdvReac Type Severity Reaction Status Date / Time atropine [From ] Allergy Intermediate Hives Verified 01/04/24 17:53 cimetidine [From Tagamet] Allergy Intermediate Hives Verified 01/04/24 17:53 hyoscyamine [From ] Allergy Intermediate Hives Verified 01/04/24 17:53 Iodinated Contrast Media Allergy Intermediate Hives Verified 01/04/24 17:53 [Iodinated Contrast- Oral and IV Dye] nitrofurantoin Allergy Intermediate Rash Verified 01/04/24 17:53 [From Macrobid] phenobarbital [From ] Allergy Intermediate Hives Verified 01/04/24 17:53 regadenoson Allergy Intermediate loss of Verified 01/04/24 17:53 vision, low Blood pressure scopolamine [From ] Allergy Intermediate Hives Verified 01/04/24 17:53 ketoprofen [From Orudis] Allergy Mild Rash Verified 01/04/24 17:53 diltiazem AdvReac Intermediate Hallucinati Verified 01/04/24 17:53 ng doxepin AdvReac Intermediate Hallucinati Verified 01/04/24 17:53 ng doxycycline AdvReac Intermediate Heartburn Verified 01/04/24 17:53 duloxetine [From Cymbalta] AdvReac Intermediate Swelling Verified 01/04/24 17:53 hydrocodone AdvReac Intermediate Dizziness Verified 01/04/24 17:53 lisinopril [From Zestril] AdvReac Intermediate Swelling Verified 01/04/24 17:53 pantoprazole [From Protonix] AdvReac Intermediate Dizziness Verified 01/04/24 17:53 Home Medications Medication Instructions Recorded Confirmed Type lorazepam 0.5 mg tablet 0.5 mg PO DAILY PRN Anxiety 04/14/21 01/04/24 History metoprolol succinate 25 mg 25 mg PO BID 04/14/21 01/04/24 History tablet,extended release 24 hr acetaminophen 500 mg tablet 1,000 mg PO Q6H PRN Back Pain 04/27/21 01/04/24 History (Tylenol Extra Strength) ergocalciferol (vitamin D2) 1,250 50,000 unit PO MONTHLY 05/13/23 01/04/24 History mcg (50,000 unit) capsule linaclotide 72 mcg capsule 72 mcg PO QAM 05/13/23 01/04/24 History (Linzess) losartan 100 mg tablet 100 mg PO QAM 05/13/23 01/04/24 History amlodipine 10 mg tablet 10 mg PO DAILY 08/05/23 01/04/24 History furosemide 20 mg tablet 40 mg (2 x 20 mg) PO DAILY Fluid 08/19/23 01/04/24 Rx Retention #1 tab lansoprazole 30 mg delayed 30 mg PO QPM 01/04/24 01/04/24 History release,disintegrating tablet (Prevacid SoluTab) Past Med/Surg History Problem List (Updated 01/04/24 @ 19:47 by Mukesh Echevarria PA-C) Lyme disease Cholecystitis Weight gain Nausea and vomiting Hypomagnesemia Hypokalemia Gallstones Dilated pancreatic duct Back pain (Acute) Pancreatitis (Acute) Acute pancreatitis Abdominal pain (Acute) Abnormal weight loss Odynophagia Encounter for pre-operative examination Acute diverticulitis Chronic kidney disease, stage III (moderate) (Acute) Peripheral vascular disease Hyperlipidemia GERD without esophagitis Fibromyalgia Depression Scleroderma Hyponatremia (Chronic) Slow transit constipation Vitamin D deficiency (Chronic) Chronic kidney disease, stage III (moderate) (Chronic) 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"; F/U DR PATEL Surgical History History of left cataract extraction History of dilatation and curettage History of esophagogastroduodenoscopy (EGD) History of breast biopsy RIGHT BENIGN History of hysterectomy History of appendectomy History of tonsillectomy H/O colonoscopy Family History Other No known health problems Social History Smoking Status: Never smoker Second Hand Exposure: No; Do You Dip or Chew Tobacco: No; Hx Alcohol Use: No Hx Substance Use: No Preferred Language: [place] Island[place] Communication Ability: Effective Legal Counsel Required: No Beliefs That Will Affect Care: None Current Living Situation: Spouse current occupational status: retired Feels Safe at Home: Yes Assistive Devices: Brace/Splint/Immobilizer, Cane and Walker Review of Systems Review of Systems: See HPI above Physical Exam Physical Exam: General: no acute distress; pleasant affect; non-toxic appearing; well- nourished; cooperative; SpO2 99% on RA HEENT: normocephalic, atraumatic; no scleral icterus; PERRLA; moist mucus membrane; vision and hearing intact Neck: supple; no lymphadenopathy; trachea midline Skin: warm, dry without signs of tenting; no cyanosis; no rashes, bruising, lesions, or erythema noted CV: chest wall NTP; RRR; S1/S2 normal; no murmurs/rubs/gallops; pulses intact and symmetric at radial, DP, and PT Lungs: no acute respiratory distress; symmetrical chest wall expansion; clear breath sounds across all lung jaffe w/o adventitious sounds; no wheezing ABD: Soft; LLQ is TTP; BS present; no rebound/guarding; moderate abdominal distention and bloating; no signs of rashes, bruising, or erythema on the abdomen or flanks MSK: no tics or fasciculations; no edema noted in the LEs b/l, nonerythematous Neuro: A&Ox3; normal mood and affect; fluent speech; no focal deficits; sensation intact in the LEs b/l Results & Data Results & Data Vital Signs (Past 12 Hours) Vital Signs Temp Pulse Pulse Resp BP BP Pulse Ox 01/04/24 17:24 84 01/04/24 17:23 80 16 173/88 H 99 01/04/24 17:22 87 99 01/04/24 16:59 36.5 C 83 18 160/81 H 98 O2 Del Method 01/04/24 17:24 01/04/24 17:23 Room Air 01/04/24 17:22 Room Air 01/04/24 16:59 Room Air Laboratory Results Abnormal lab results 01/04/24 Range/Units 17:25 WBC 18.43 H (4.8-10.8) K/ul RBC 4.04 L (4.20-5.40) M/uL Hgb 11.8 L (12.0-16.0) g/dl Hct 35.2 L (37.0-47.0) % Neut # (Auto) 14.72 H (1.40-6.50) K/uL [place] # (Auto) 1.49 H (0.11-0.59) K/uL Potassium 3.1 L (3.5-5.1) mmol/L Creatinine 1.29 H (0.6-1.2) mg/dl Glucose 111 H (70-99(Fasting)) mg/dl Lyme Disease Screen Positive H (Negative) Diagnostic Findings Abdomen/Pelvis CT 01/04/24 17:10 CT SCAN OF THE ABDOMEN AND PELVIS WITHOUT IV CONTRAST CLINICAL HISTORY: Generalized abdominal pain. COMPARISON STUDY: Prior abdominal CT scans, most recently dated 08/11/2023. TECHNIQUE: CT scan of the abdomen and pelvis is performed from the lung bases to the proximal femora. Images are reviewed in the axial, sagittal, and coronal planes. IV contrast was not administered for this examination due to a reported history of contrast allergy. Note that the examination is suboptimal without oral and IV contrast. A dose lowering technique was utilized adhering to the principles of ALARA. CT DOSE: 592.47 mGy.cm FINDINGS: Lung bases: The heart is mildly enlarged and without pericardial effusion. There is bibasilar scarring/atelectasis. No airspace consolidation or pleural effusion is identified. A small hiatal hernia is noted. Liver: The unenhanced liver is normal in size, contour, and attenuation. There is no intrahepatic biliary ductal dilatation. An 11 mm hepatic cyst is incidentally noted and unchanged. Gallbladder: Surgically absent noting clips in the gallbladder fossa. This is new from previous Spleen: Normal in size and attenuation. Pancreas: The unenhanced pancreas is mildly atrophic and grossly unremarkable. Prominence of the pancreatic duct is less apparent than previous. Adrenal glands: Unremarkable. Kidneys: There is asymmetric cortical atrophy of the right kidney as compared to the left. No hydronephrosis is seen. There are no renal calculi identified. There is no evidence of contour deforming renal mass lesion. Abdominal vasculature: There is advanced atherosclerotic calcification and mild ectasia of the abdominal aorta. Bowel: No bowel obstruction is seen. There is advanced colonic diverticulosis. Mild inflammatory change is seen around the proximal sigmoid colon. This likely represents mild acute diverticulitis. No fluid collection is seen to suggest abscess. The appendix is not identified and reported surgically absent. Peritoneum: No intraperitoneal free air or abdominal ascites is seen. Lymphadenopathy: None. Pelvic viscera: The bladder is normal as visualized. The uterus is surgically absent. No adnexal lesion is seen. Skeletal structures: The skeletal structures are osteopenic. There is moderate lumbosacral spondylosis and mild scoliosis. No lytic or blastic lesions are seen. IMPRESSION: 1. There is advanced colonic diverticulosis. Mild inflammation around the proximal sigmoid colon likely represents acute diverticulitis. 2. No intraperitoneal free air is identified and no fluid collection is seen to suggest abscess. 3. There is no postsurgical change from interval cholecystectomy. 4. Additional findings as above. ACT 112: Negative or not required by law. Electronically signed by: Yang Wolfe M.D. 01/04/2024 6:25 PM ECG Additional Comments: ECG revealed NSR at 80 bpm; QTc 429 Code Status & VTE Plan Code Status Full code VTE Prophylaxis Plan VTE Prophylaxis will be ordered: Yes Supervising Physician Co-Signing Physician Notes Patient seen and examined, chart reviewed, case discussed with Mukesh Echevarria PA-C and I agree with the assessment and plan as above except as otherwise noted Labs and images reviewed 78-year-old female who presents with diverticulitis without abscess or perforation which has persisted despite outpatient Augmentin treatment. She is also found to be Lyme positive. Anaplasma testing is pending. Transition to IV antibiotics, ceftriaxone/Flagyl with adjunct Doxy for tickborne coverage. Patient is nontoxic and nondistressed at the bedside. Does endorse lower abdominal tenderness at bedside. No other questions or concerns. Initially was concerned about doxycycline as she had an episode of heartburn/gastritis from this, discussed pill esophagitis in particular with doxycycline and that this is unlikely to represent an allergy and in the future doxycycline should be taken with a full glass of water and food. For now can use IV formulation. No other questions. Agree with assessment and management above PG Care Time/CCT Total # of Minutes Spent Total Time Spent with Patient: Total time spent is greater than 50% in coordination of care (as documented) at patient's floor/unit and/or counseling patient: C[place] [address] INT INP/OBS CARE 3/75MIN Patient Type Established Medical Decision Making High Complexity Diagnoses Acute diverticulitis K57.92 Lyme disease A69.20 Hypokalemia E87.6 Chronic kidney disease, stage III (moderate) N18.30 Chronic kidney disease stage 3 subtype: unspecified whether 3a or 3b GERD without esophagitis K21.9 (4) Chronic kidney disease, stage III (moderate) Chronic kidney disease stage 3 subtype: unspecified whether 3a or 3b Qualified Code(s): N18.30 - Chronic kidney disease, stage 3 unspecified
[2024-01-04 19:05] LABS: Lyme Ab IgG 2nd Tier Confirm Positive (Negative)
[2024-01-04 19:06] LABS: Lyme Ab IgM 2nd Tier Confirm Negative (Negative)
[2024-01-04 20:00] LABS: Appearance Urine Clear (Clear); Bilirubin Urine Negative (Negative); Blood Urine Negative (Negative); Color Urine Yellow; Glucose Urine UA Negative (Negative); Ketones Urine Negative (Negative); Leukocyte Esterase Urine Negative (Negative); Nitrite Urine Negative (Negative); Protein Urine Negative (Negative); Specific Gravity Urine 1.008 (1.000-1.030); Urobilinogen Urine Negative (Negative)
[2024-01-04] MEDS: cefTRIAXone SODIUM 2,000 MG/50 ML BAG IV STA (20:35)
[2024-01-04] MEDS: DOXYCYCLINE HYCLATE 100 MG in DEXTROSE 5% MINI-B 100 ML IV STA (21:14)
[2024-01-04] MEDS ORDERED: LORazepam 0.5 MG TAB PO PRN (21:42)
[2024-01-04] MEDS ORDERED: CALCIUM CARBONATE 500 MG CHEWABLE TAB PO PRN (21:42)
[2024-01-04] MEDS: LANSOPRAZOLE 30 MG SOLTAB PO SCH (22:08)
[2024-01-04] MEDS: METOPROLOL SUCC 25MG EXT REL TAB PO SCH (22:09)
[2024-01-04] MEDS: HEPARIN SOD 5,000 UNIT/0.5 ML VIAL SQ SCH (22:10)
[2024-01-04] MEDS: metroNIDAZOLE 500 MG/100 ML BAG IV STA (23:21)
[2024-01-04] MEDS: MAGNESIUM SULFATE / D5W 1 GM/100 ML BAG IV ONE (23:47)
[2024-01-05] MEDS: PLASMA-LYTE A 1,000 ML IV SCH (01:47)
[2024-01-05] MEDS: metroNIDAZOLE 500 MG/100 ML BAG IV SCH (05:18)
[2024-01-05 07:14] LABS: Basophils # (auto) 0.04 K/uL (0.00-0.20); Basophils % (auto) 0.2 %; Eosinophils # (auto) 0.02 K/uL (0.00-0.50); Eosinophils % (auto) 0.1 %; Hematocrit (blood only) 32.5 % (37.0-47.0); Hemoglobin 10.9 g/dl (12.0-16.0); Immature Granulocytes # (auto) 0.15 K/uL (0.01-0.20); Immature Granulocytes % (auto) 0.7 %; Lymphocytes # (auto) 1.69 K/uL (1.20-3.40); Mean Corpuscular Hemoglobin 29.6 pg (25.0-34.0); Mean Corpuscular Hgb Conc 33.5 g/dL (32.0-36.0); Mean Corpuscular Volume 88.3 fL (80.0-100.0); Mean Platelet Volume 10.2 fL (9.4-12.4); Monocytes # (auto) 1.49 K/uL (0.11-0.59); Monocytes % (auto) 7.1 %; Neutrophils # (auto) 17.63 K/uL (1.40-6.50); Neutrophils % (auto) 83.9 %; Platelet Count 192 K/uL (130-400); RDW Coefficient of Variation 13.2 % (11.5-14.5); RDW Standard Deviation 42.9 fL (36.4-46.3); Red Blood Count 3.68 M/uL (4.20-5.40); White Blood Count 21.02 K/ul (4.8-10.8)
--- NOTE | 2024-01-05 07:18 | Electrocardiogram Report ---
Test Reason : Blood Pressure : / mmHG Vent. Rate : 080 BPM Atrial Rate : 080 BPM P-R Int : 160 ms QRS Dur : 070 ms QT Int : 372 ms P-R-T Axes : 055 033 105 degrees QTc Int : 429 ms Normal sinus rhythm with sinus arrhythmia Nonspecific ST and T wave abnormality Abnormal ECG When compared with ECG of 14-AUG-2023 20:50, Premature supraventricular complexes are no longer Present Confirmed by Zen Bender ([id number]) on 01/05/2024 7:17:57 AM Referred By: REFERRED SELF Confirmed By:Lauro Bender
[2024-01-05 07:36] LABS: Calcium 8.5 mg/dl (8.6-10.3); Magnesium 1.9 mg/dl (1.7-2.4); Potassium 3.3 mmol/L (3.5-5.1)
[2024-01-05 07:41] LABS: BUN Creatinine Ratio 11.7 (10-20); Creatinine Clr Calc Pharmacy 37.6 ml/min; Est GFR (African American) 59.5 ml/min; Est GFR (Non-African American) 51.3 ml/min
[2024-01-05] MEDS ORDERED: LORazepam 0.5 MG TAB PO PRN (07:46)
[2024-01-05] MEDS ORDERED: DOXYCYCLINE HYCLATE 100 MG in DEXTROSE 5% MINI-B 100 ML IV SCH (08:00)
[2024-01-05] MEDS: linaCLOtide 72 MCG CAPSULE PO SCH (08:05)
[2024-01-05] MEDS: amLODIPine BESYLATE 5 MG TAB PO SCH (08:05)
[2024-01-05] MEDS: POTASSIUM CHLORIDE 10 MEQ TABCR PO SCH (08:17)
[2024-01-05] MEDS: D5NSS + 20MEQ KCL 20 MEQ/1,000 ML BAG IV SCH (09:08)
[2024-01-05] MEDS: HYDROmorphone INJ 0.5 MG/0.5 ML SYR IV PRN (11:58)
[2024-01-05] MEDS: ACETAMINOPHEN 1,000 MG/100 ML VIAL IV PRN (15:37)
[2024-01-05] MEDS: ONDANSETRON INJ 2 MG/ML 2 ML VIAL IV PRN (15:37)
--- NOTE | 2024-01-05 15:44 | Hospitalist Progress Note ---
Date of Service January 05, 2024 Assessment & Plan (1) Acute diverticulitis: Plan: Continue Rocephin and Flagyl, day 2. Clear liquids for now. Continue IV fluids. If white blood cell count continues to trend upward, she will need repeat abdominal CT scan (2) Lyme disease: Plan: IgM is negative. Doxycycline has been discontinued. (3) Hypokalemia: Plan: Continue oral and IV replacement. Serial labs. Lasix is on hold (4) Chronic kidney disease, stage III (moderate): Plan: Monitor intake and output. Serial labs. Losartan and Lasix are on hold (5) GERD without esophagitis: Plan: Stable. Continue PPI therapy Plan Hopeful discharge to home within the next 2 to 3 days Admission and Anticipated Discharge Date Admission Date: January 04, 2024 Subjective Alert and oriented. She does not feel any better since admission. Son is at the bedside. White count on admission was 18,000. Today, January 05, 2020 1000, will monitor again tomorrow. If white count continues to go up, abdomen CT scan will need to be repeated. Potassium remains low and she is receiving replacement in the IV fluids along with oral potassium. She remains on Rocephin and Flagyl, day 2. Lyme IgM is negative. Intravenous doxycycline has been discontinued. Review of Systems 2 Review of Systems: Constitutional-no fever or chills ENT-no blurred vision, no double vision, no epistaxis, no sore throat Respiratory-no cough, no wheezing, no shortness of breath Cardiac-no palpitations, no chest pain, no syncope GI-nausea and anorexia. Abdominal distention and diffuse discomfort. No melena, no hematochezia -no urinary retention, no urinary incontinence, no dysuria, no hematuria Musculoskeletal-no joint pain, no muscle tenderness Skin-no bruising, no rashes, no pruritus Neuro-no isolated weakness, no paresthesia Psych-no depression, no anxiety Physical Exam 2 Physical Exam: General-alert and oriented x3, no fever, no chills HEENT-head atraumatic and normocephalic, pupils equal and reactive to light, extraocular muscles intact Neck-no lymphadenopathy or thyromegaly, trachea midline Chest-clear to auscultation. No rales, wheezing or rhonchi Cardiac-regular rate and rhythm, normal S1 and S2 Abdomen-normal bowel sounds, no hepatosplenomegaly. Left lower quadrant tenderness to palpation. No masses. No rebound or guarding Extremities-no cyanosis, clubbing, or edema Neuro-cranial nerves II through XII intact, motor and sensory function within normal limits, strength symmetrical, no focal deficits Psych-normal affect, normal mood Results & Data Results & Data Vital Signs (Past 12 Hours) Vital Signs Temp Pulse Pulse Resp BP Pulse Ox O2 Del Method 01/05/24 15:33 38.1 C H 76 18 136/67 94 Room Air 01/05/24 11:29 37.9 C H 82 18 130/69 94 Room Air 01/05/24 07:39 38.0 C H 80 18 126/70 95 Room Air 01/05/24 07:21 76 Laboratory Results 01/05/24 06:20 01/05/24 06:20 PG Care Time/CCT Total # of Minutes Spent Total Time Spent with Patient: Total time spent is greater than 50% in coordination of care (as documented) at patient's floor/unit and/or counseling patient: Coding Level of Care Code 16901 SUB INP/OBS CARE 3/50MIN Diagnoses Acute diverticulitis K57.92 Lyme disease A69.20 Hypokalemia E87.6 Chronic kidney disease, stage III (moderate) N18.30 Chronic kidney disease stage 3 subtype: unspecified whether 3a or 3b GERD without esophagitis K21.9 (4) Chronic kidney disease, stage III (moderate) Chronic kidney disease stage 3 subtype: unspecified whether 3a or 3b Qualified Code(s): N18.30 - Chronic kidney disease, stage 3 unspecified
[2024-01-05] MEDS: cefTRIAXone SODIUM 2,000 MG/50 ML BAG IV SCH (20:03)
[2024-01-06 07:27] LABS: Basophils # (auto) 0.07 K/uL (0.00-0.20); Basophils % (auto) 0.3 %; Eosinophils # (auto) 0.02 K/uL (0.00-0.50); Eosinophils % (auto) 0.1 %; Hematocrit (blood only) 33.6 % (37.0-47.0); Hemoglobin 10.9 g/dl (12.0-16.0); Immature Granulocytes % (auto) 1.3 %; Lymphocytes # (auto) 1.67 K/uL (1.20-3.40); Lymphocytes % (auto) 7.1 %; Mean Corpuscular Hemoglobin 29.3 pg (25.0-34.0); Mean Corpuscular Hgb Conc 32.4 g/dL (32.0-36.0); Mean Corpuscular Volume 90.3 fL (80.0-100.0); Mean Platelet Volume 10.2 fL (9.4-12.4); Monocytes # (auto) 1.62 K/uL (0.11-0.59); Monocytes % (auto) 6.9 %; Neutrophils # (auto) 19.76 K/uL (1.40-6.50); Neutrophils % (auto) 84.3 %; Platelet Count 195 K/uL (130-400); RDW Coefficient of Variation 13.4 % (11.5-14.5); RDW Standard Deviation 44.2 fL (36.4-46.3); Red Blood Count 3.72 M/uL (4.20-5.40); White Blood Count 23.44 K/ul (4.8-10.8)
[2024-01-06 07:43] LABS: BUN Creatinine Ratio 9.9 (10-20); Calcium 8.4 mg/dl (8.6-10.3); Creatinine Clr Calc Pharmacy 34.9 ml/min; Est GFR (African American) 54.3 ml/min; Est GFR (Non-African American) 46.9 ml/min; Potassium 3.1 mmol/L (3.5-5.1)
[2024-01-06] MEDS: POTASSIUM CHLORIDE / WTR 10 MEQ/100 ML PLCT IV SCH (08:28)
--- NOTE | 2024-01-06 09:49 | CT Scan Report ---
CT abd pelvis wo con CLINICAL HISTORY: diverticulitis, rising WBC TECHNIQUE: Helical axial images of the abdomen and pelvis were obtained. Automated dose lowering tech niques and/or adjustment according to patient size were utilized for this exam. This exam was perfor med without intravenous contrast. CT DOSE: 633.22 mGy.cm COMPARISON: Comparison is made to CT chest 01/04/2024 FINDINGS: Lower chest: Bibasilar atelectasis versus scarring is seen. Liver: Hepatic cyst is seen. Gallbladder and biliary tree: Patient is status post cholecystectomy. No intra- or extrahepatic bilia ry ductal dilation. Pancreas: Unremarkable, no focal lesions. Spleen: Unremarkable. Adrenals: Unremarkable. Kidneys and ureters: Perinephric stranding is noted bilaterally. Bladder: Unremarkable. Reproductive organs: Patient is status post hysterectomy. Bowel: Prominent thickening of the rectum and sigmoid colon is seen with numerous diverticula and sydney rounding fat stranding. Lymph nodes Retroperitoneal: A hernia is seen. Pelvic: Unremarkable. Mesenteric: Mesenteric lymph nodes are seen in the left lower quadrant. Peritoneum: Fat stranding is seen in the left lower quadrant. There is trace free fluid. No drainable fluid collection or pneumoperitoneum is seen. Vessels: Unremarkable. Abdominal wall: Unremarkable. Bones: Degenerative changes in the visualized spine. IMPRESSION: Interval worsening of bowel wall thickening, particularly in the rectum, with increased fat stranding about the sigmoid colon as well. Findings are compatible with worsening diverticulitis, however ther e is no evidence of perforation or abscess formation. ACT 112: Negative or not required by law. Electronically signed by: Gianluca Jones M.D. 01/06/2024 9:48 AM
[2024-01-06] MEDS: AMPICILLIN/SULBACTAM SOD 3,000 MG in SODIUM CHLOR 0.9% MINI-B 100 ML IV SCH (10:31)
--- NOTE | 2024-01-06 12:56 | Hospitalist Progress Note ---
Date of Service January 06, 2024 Assessment & Plan (1) Acute diverticulitis: Plan: Repeat abdominal CT scan done today, January 05, looks worse. Antibiotics have been switched over to Unasyn, day 1. Clear liquids only for now. Continue IV fluids. (2) Lyme disease: Plan: IgM is negative. Doxycycline has been discontinued. (3) Hypokalemia: Plan: Parenteral replacement. Serial labs. Lasix is on hold (4) Chronic kidney disease, stage III (moderate): Plan: Monitor intake and output. Serial labs. Losartan and Lasix are on hold (5) GERD without esophagitis: Plan: Stable. Continue PPI therapy Plan To be determined. Admission and Anticipated Discharge Date Admission Date: January 04, 2024 Subjective Alert and oriented. No distress. Unfortunately, her white blood cell count increased further today, January 05. Abdominal pelvic CT scan was repeated and it appears worse but there is no perforation. Rocephin and Flagyl have been switched to Unasyn, day 1. Potassium replacement continues parenterally. Review of Systems 2 Review of Systems: Constitutional-no fever or chills ENT-no blurred vision, no double vision, no epistaxis, no sore throat Respiratory-no cough, no wheezing, no shortness of breath Cardiac-no palpitations, no chest pain, no syncope GI-nausea and anorexia. Abdominal distention and diffuse discomfort. No melena, no hematochezia -no urinary retention, no urinary incontinence, no dysuria, no hematuria Musculoskeletal-no joint pain, no muscle tenderness Skin-no bruising, no rashes, no pruritus Neuro-no isolated weakness, no paresthesia Psych-no depression, no anxiety Physical Exam 2 Physical Exam: General-alert and oriented x3, no fever, no chills HEENT-head atraumatic and normocephalic, pupils equal and reactive to light, extraocular muscles intact Neck-no lymphadenopathy or thyromegaly, trachea midline Chest-clear to auscultation. No rales, wheezing or rhonchi Cardiac-regular rate and rhythm, normal S1 and S2 Abdomen-hypoactive bowel sounds, no hepatosplenomegaly. Left lower quadrant tenderness to palpation. Distended. No masses. No rebound or guarding Extremities-no cyanosis, clubbing, or edema Neuro-cranial nerves II through XII intact, motor and sensory function within normal limits, strength symmetrical, no focal deficits Psych-normal affect, normal mood Results & Data Results & Data Vital Signs (Past 12 Hours) Vital Signs Temp Pulse Pulse Resp BP Pulse Ox O2 Del Method 01/06/24 12:18 71 01/06/24 11:52 38.0 C H 91 H 18 165/55 H 94 Room Air 01/06/24 07:37 36.7 C 97 H 125/60 96 Room Air 01/06/24 03:45 79 01/06/24 02:43 38.9 C H 84 16 130/58 L 92 Room Air Laboratory Results 01/06/24 06:55 01/06/24 06:55 PG Care Time/CCT Total # of Minutes Spent Total Time Spent with Patient: Total time spent is greater than 50% in coordination of care (as documented) at patient's floor/unit and/or counseling patient: Coding Level of Care Code 27094 SUB INP/OBS CARE 3/50MIN Diagnoses Acute diverticulitis K57.92 Lyme disease A69.20 Hypokalemia E87.6 Chronic kidney disease, stage III (moderate) N18.30 Chronic kidney disease stage 3 subtype: unspecified whether 3a or 3b GERD without esophagitis K21.9 (4) Chronic kidney disease, stage III (moderate) Chronic kidney disease stage 3 subtype: unspecified whether 3a or 3b Qualified Code(s): N18.30 - Chronic kidney disease, stage 3 unspecified
[2024-01-07 06:22] LABS: Basophils # (auto) 0.05 K/uL (0.00-0.20); Basophils % (auto) 0.3 %; Eosinophils # (auto) 0.07 K/uL (0.00-0.50); Eosinophils % (auto) 0.4 %; Hematocrit (blood only) 31.3 % (37.0-47.0); Hemoglobin 10.2 g/dl (12.0-16.0); Immature Granulocytes # (auto) 0.13 K/uL (0.01-0.20); Immature Granulocytes % (auto) 0.7 %; Lymphocytes # (auto) 1.46 K/uL (1.20-3.40); Lymphocytes % (auto) 7.3 %; Mean Corpuscular Hemoglobin 29.3 pg (25.0-34.0); Mean Corpuscular Hgb Conc 32.6 g/dL (32.0-36.0); Mean Corpuscular Volume 89.9 fL (80.0-100.0); Mean Platelet Volume 10.5 fL (9.4-12.4); Monocytes # (auto) 1.23 K/uL (0.11-0.59); Monocytes % (auto) 6.2 %; Neutrophils # (auto) 17.02 K/uL (1.40-6.50); Neutrophils % (auto) 85.1 %; Platelet Count 198 K/uL (130-400); RDW Coefficient of Variation 13.4 % (11.5-14.5); RDW Standard Deviation 44.2 fL (36.4-46.3); Red Blood Count 3.48 M/uL (4.20-5.40); White Blood Count 19.96 K/ul (4.8-10.8)
[2024-01-07 06:30] LABS: BUN Creatinine Ratio 7.1 (10-20); Calcium 7.9 mg/dl (8.6-10.3); Creatinine Clr Calc Pharmacy 39.5 ml/min; Est GFR (African American) 63.1 ml/min; Est GFR (Non-African American) 54.5 ml/min; Potassium 3.3 mmol/L (3.5-5.1)
[2024-01-07] MEDS: POTASSIUM CHLORIDE / WTR 10 MEQ/100 ML PLCT IV SCH (10:30)
--- NOTE | 2024-01-07 14:02 | Hospitalist Progress Note ---
Date of Service January 07, 2024 Assessment & Plan (1) Acute diverticulitis: Plan: Repeat abdominal CT scan done on January 05 looked worse. Antibiotics were switched to Unasyn, day 2. White blood cell count today looks better, January 06. She also feels better. (2) Lyme disease: Plan: IgM is negative. Doxycycline has been discontinued. (3) Hypokalemia: Plan: Continue parenteral replacement. Serial labs. Lasix is on hold (4) Chronic kidney disease, stage III (moderate): Plan: Monitor intake and output. Serial labs. Losartan and Lasix are on hold (5) GERD without esophagitis: Plan: Stable. Continue PPI therapy Plan To be determined. Admission and Anticipated Discharge Date Admission Date: January 04, 2024 Subjective Alert and oriented. She states she is beginning to feel better. Fortunately, the white blood cell count is now trending down. She is on Unasyn, day 2. Potassium remains low at 3.3. Parenteral potassium replacement ordered. She remains on a clear liquid diet and IV fluids. Her oral intake is not very good however Review of Systems 2 Review of Systems: Constitutional-no fever or chills ENT-no blurred vision, no double vision, no epistaxis, no sore throat Respiratory-no cough, no wheezing, no shortness of breath Cardiac-no palpitations, no chest pain, no syncope GI-nausea and anorexia. Abdominal distention and diffuse discomfort. No melena, no hematochezia -no urinary retention, no urinary incontinence, no dysuria, no hematuria Musculoskeletal-no joint pain, no muscle tenderness Skin-no bruising, no rashes, no pruritus Neuro-no isolated weakness, no paresthesia Psych-no depression, no anxiety Physical Exam 2 Physical Exam: General-alert and oriented x3, no fever, no chills HEENT-head atraumatic and normocephalic, pupils equal and reactive to light, extraocular muscles intact Neck-no lymphadenopathy or thyromegaly, trachea midline Chest-clear to auscultation. No rales, wheezing or rhonchi Cardiac-regular rate and rhythm, normal S1 and S2 Abdomen-hypoactive bowel sounds, no hepatosplenomegaly. Left lower quadrant tenderness to palpation. Distended. No masses. No rebound or guarding Extremities-no cyanosis, clubbing, or edema Neuro-cranial nerves II through XII intact, motor and sensory function within normal limits, strength symmetrical, no focal deficits Psych-normal affect, normal mood Results & Data Results & Data Vital Signs (Past 12 Hours) Vital Signs Temp Pulse Pulse Resp BP Pulse Ox O2 Del Method 01/07/24 12:03 37.5 C 85 18 129/64 94 Room Air 01/07/24 11:02 01/07/24 09:52 80 01/07/24 08:04 37.1 C 78 18 129/67 99 Room Air O2 Del Method O2 Flow Rate 01/07/24 12:03 01/07/24 11:02 Nasal Cannula 3 01/07/24 09:52 01/07/24 08:04 Laboratory Results 01/07/24 05:45 01/07/24 05:45 PG Care Time/CCT Total # of Minutes Spent Total Time Spent with Patient: Total time spent is greater than 50% in coordination of care (as documented) at patient's floor/unit and/or counseling patient: Coding Level of Care Code 09429 SUB INP/OBS CARE 3/50MIN Diagnoses Acute diverticulitis K57.92 Lyme disease A69.20 Hypokalemia E87.6 Chronic kidney disease, stage III (moderate) N18.30 Chronic kidney disease stage 3 subtype: unspecified whether 3a or 3b GERD without esophagitis K21.9 (4) Chronic kidney disease, stage III (moderate) Chronic kidney disease stage 3 subtype: unspecified whether 3a or 3b Qualified Code(s): N18.30 - Chronic kidney disease, stage 3 unspecified
[2024-01-07] MEDS: POTASSIUM CHLORIDE CRTAB 20 MEQ TABCR PO SCH (20:33)
[2024-01-08 07:18] LABS: BUN Creatinine Ratio 5.4 (10-20); Calcium 7.7 mg/dl (8.6-10.3); Creatinine Clr Calc Pharmacy 42.1 ml/min; Est GFR (African American) 68.2 ml/min; Est GFR (Non-African American) 58.8 ml/min; Potassium 3.6 mmol/L (3.5-5.1)
[2024-01-08 07:44] LABS: Basophils # (auto) 0.05 K/uL (0.00-0.20); Basophils % (auto) 0.3 %; Eosinophils # (auto) 0.14 K/uL (0.00-0.50); Eosinophils % (auto) 0.8 %; Hematocrit (blood only) 28.7 % (37.0-47.0); Hemoglobin 9.3 g/dl (12.0-16.0); Immature Granulocytes % (auto) 0.5 %; Lymphocytes # (auto) 1.61 K/uL (1.20-3.40); Lymphocytes % (auto) 8.8 %; Mean Corpuscular Hemoglobin 28.8 pg (25.0-34.0); Mean Corpuscular Hgb Conc 32.4 g/dL (32.0-36.0); Mean Corpuscular Volume 88.9 fL (80.0-100.0); Monocytes # (auto) 1.36 K/uL (0.11-0.59); Monocytes % (auto) 7.4 %; Neutrophils # (auto) 15.06 K/uL (1.40-6.50); Neutrophils % (auto) 82.2 %; Platelet Count 188 K/uL (130-400); RDW Coefficient of Variation 13.5 % (11.5-14.5); RDW Standard Deviation 44.2 fL (36.4-46.3); Red Blood Count 3.23 M/uL (4.20-5.40); White Blood Count 18.32 K/ul (4.8-10.8)
[2024-01-08] MEDS: PSYLLIUM or GUAR GUM FIBER 4GM PACKET PO SCH (11:17)
--- NOTE | 2024-01-08 13:24 | Hospitalist Progress Note ---
Date of Service January 08, 2024 Assessment & Plan (1) Acute diverticulitis: Plan: Repeat abdominal CT scan done on January 05 looked worse. Antibiotics were switched to Unasyn, now day 3. She appears to be getting better. White blood cell count is downtrending now. Diet has been advanced to full liquids and IV fluids taper down. (2) Lyme disease: Plan: IgM is negative. Doxycycline has been discontinued. (3) Hypokalemia: Plan: Improved with parenteral replacement. Serial labs. Lasix is on hold (4) Chronic kidney disease, stage III (moderate): Plan: Monitor intake and output. Serial labs. Losartan and Lasix are on hold (5) GERD without esophagitis: Plan: Stable. Continue PPI therapy Plan Will request OT and PT assessments tomorrow, January 08. To be determined. Admission and Anticipated Discharge Date Admission Date: January 04, 2024 Subjective Complaining of frequent loose stools. This is not unexpected with underlying diverticulitis and antibiotic therapy. C. difficile toxin assay requested. Metamucil twice daily has been added. Will advance diet and taper down IV fluids further. OT and PT have been requested. Review of Systems 2 Review of Systems: Constitutional-no fever or chills ENT-no blurred vision, no double vision, no epistaxis, no sore throat Respiratory-no cough, no wheezing, no shortness of breath Cardiac-no palpitations, no chest pain, no syncope GI-nausea and anorexia. Abdominal distention and diffuse discomfort. No melena, no hematochezia -no urinary retention, no urinary incontinence, no dysuria, no hematuria Musculoskeletal-no joint pain, no muscle tenderness Skin-no bruising, no rashes, no pruritus Neuro-no isolated weakness, no paresthesia Psych-no depression, no anxiety Physical Exam 2 Physical Exam: General-alert and oriented x3, no fever, no chills HEENT-head atraumatic and normocephalic, pupils equal and reactive to light, extraocular muscles intact Neck-no lymphadenopathy or thyromegaly, trachea midline Chest-clear to auscultation. No rales, wheezing or rhonchi Cardiac-regular rate and rhythm, normal S1 and S2 Abdomen-active bowel sounds, no hepatosplenomegaly. Left lower quadrant tenderness to palpation. Mildly distended. No masses. No rebound or guarding Extremities-no cyanosis, clubbing, or edema Neuro-cranial nerves II through XII intact, motor and sensory function within normal limits, strength symmetrical, no focal deficits Psych-normal affect, normal mood Results & Data Results & Data Vital Signs (Past 12 Hours) Vital Signs Temp Pulse Pulse Resp BP Pulse Ox O2 Del Method 01/08/24 13:00 37.5 C 86 20 143/66 H 94 Room Air 01/08/24 12:38 01/08/24 08:23 85 01/08/24 07:46 37.2 C 78 18 129/63 93 Room Air 01/08/24 02:47 37.0 C 87 18 153/66 H 94 Room Air O2 Del Method 01/08/24 13:00 01/08/24 12:38 Room Air 01/08/24 08:23 01/08/24 07:46 01/08/24 02:47 Laboratory Results 01/08/24 06:14 01/08/24 06:14 PG Care Time/CCT Total # of Minutes Spent Total Time Spent with Patient: Total time spent is greater than 50% in coordination of care (as documented) at patient's floor/unit and/or counseling patient: Coding Level of Care Code 20151 SUB INP/OBS CARE 3/50MIN Diagnoses Acute diverticulitis K57.92 Lyme disease A69.20 Hypokalemia E87.6 Chronic kidney disease, stage III (moderate) N18.30 Chronic kidney disease stage 3 subtype: unspecified whether 3a or 3b GERD without esophagitis K21.9 (4) Chronic kidney disease, stage III (moderate) Chronic kidney disease stage 3 subtype: unspecified whether 3a or 3b Qualified Code(s): N18.30 - Chronic kidney disease, stage 3 unspecified
[2024-01-08 16:23] LABS: Cdiff Toxin B Gene (2yr or >) Positive Cdiff Gene (Neg)
[2024-01-08 16:24] LABS: Cdiff Antigen Positive; Cdiff Toxin A+B Negative Cdiff Toxin (Negative)
[2024-01-08 20:18] LABS: Babesia microti DNA Not Detected (Not Detected)
[2024-01-09 07:28] LABS: Basophils # (auto) 0.05 K/uL (0.00-0.20); Basophils % (auto) 0.4 %; Eosinophils # (auto) 0.29 K/uL (0.00-0.50); Eosinophils % (auto) 2.4 %; Hematocrit (blood only) 29.7 % (37.0-47.0); Hemoglobin 9.6 g/dl (12.0-16.0); Immature Granulocytes # (auto) 0.07 K/uL (0.01-0.20); Immature Granulocytes % (auto) 0.6 %; Lymphocytes # (auto) 1.65 K/uL (1.20-3.40); Lymphocytes % (auto) 13.7 %; Mean Corpuscular Hemoglobin 28.8 pg (25.0-34.0); Mean Corpuscular Hgb Conc 32.3 g/dL (32.0-36.0); Mean Corpuscular Volume 89.2 fL (80.0-100.0); Monocytes # (auto) 0.91 K/uL (0.11-0.59); Monocytes % (auto) 7.5 %; Neutrophils # (auto) 9.09 K/uL (1.40-6.50); Neutrophils % (auto) 75.4 %; Platelet Count 247 K/uL (130-400); RDW Coefficient of Variation 13.7 % (11.5-14.5); Red Blood Count 3.33 M/uL (4.20-5.40); White Blood Count 12.06 K/ul (4.8-10.8)
[2024-01-09 07:46] LABS: BUN Creatinine Ratio 3.1 (10-20); Calcium 7.8 mg/dl (8.6-10.3); Creatinine Clr Calc Pharmacy 43.4 ml/min; Est GFR (African American) 63.1 ml/min; Est GFR (Non-African American) 54.5 ml/min; Potassium 3.7 mmol/L (3.5-5.1)
--- NOTE | 2024-01-09 12:04 | Hospitalist Progress Note ---
Date of Service January 09, 2024 Assessment & Plan (1) Acute diverticulitis: Plan: Repeat abdominal CT scan done on January 05 looked worse. Antibiotics were switched to Unasyn, now day 4. She appears to be getting better. White blood cell count is downtrending now. Diet has been advanced to full liquids and IV fluids tapered down. (2) Lyme disease: Plan: IgM is negative. Doxycycline has been discontinued. (3) Hypokalemia: Plan: Improved with parenteral replacement. Serial labs. Lasix is on hold (4) Chronic kidney disease, stage III (moderate): Plan: Monitor intake and output. Serial labs. Losartan and Lasix are on hold (5) GERD without esophagitis: Plan: Stable. Continue PPI therapy (6) Diarrhea: Plan: Metamucil has helped. She has reason to have loose stools with intravenous antibiotics accompanied by diverticulitis. C. difficile gene is positive but the C. difficile toxin is negative. Will follow along for now Plan OT and PT evaluations pending. I suspect she will need short-term SNF placement in the [facility]. Admission and Anticipated Discharge Date Admission Date: January 04, 2024 Subjective Alert and oriented. She appears to be getting better. White blood cell count has decreased further to 12,000. She remains on Unasyn, day 4. Metamucil has helped slow down frequency of loose stools. Her C. difficile gene is positive but the toxin is negative. Will follow along for now. OT and PT evaluations pending. I believe she will need short-term SNF placement in the [facility] when she leaves in the next 24-48 hours Review of Systems 2 Review of Systems: Constitutional-no fever or chills ENT-no blurred vision, no double vision, no epistaxis, no sore throat Respiratory-no cough, no wheezing, no shortness of breath Cardiac-no palpitations, no chest pain, no syncope GI-nausea and anorexia. Abdominal distention and diffuse discomfort. No melena, no hematochezia -no urinary retention, no urinary incontinence, no dysuria, no hematuria Musculoskeletal-no joint pain, no muscle tenderness Skin-no bruising, no rashes, no pruritus Neuro-no isolated weakness, no paresthesia Psych-no depression, no anxiety Physical Exam 2 Physical Exam: General-alert and oriented x3, no fever, no chills HEENT-head atraumatic and normocephalic, pupils equal and reactive to light, extraocular muscles intact Neck-no lymphadenopathy or thyromegaly, trachea midline Chest-clear to auscultation. No rales, wheezing or rhonchi Cardiac-regular rate and rhythm, normal S1 and S2 Abdomen-active bowel sounds, no hepatosplenomegaly. Left lower quadrant tenderness to palpation. Mildly distended. No masses. No rebound or guarding Extremities-no cyanosis, clubbing, or edema Neuro-cranial nerves II through XII intact, motor and sensory function within normal limits, strength symmetrical, no focal deficits Psych-normal affect, normal mood Results & Data Results & Data Vital Signs (Past 12 Hours) Vital Signs Temp Pulse Pulse Resp BP BP Pulse Ox 01/09/24 11:38 36.6 C 78 18 153/74 H 95 01/09/24 07:30 69 01/09/24 07:30 36.8 C 78 18 143/69 H 92 01/09/24 03:54 37.1 C 70 16 123/69 93 O2 Del Method 01/09/24 11:38 Room Air 01/09/24 07:30 01/09/24 07:30 Room Air 01/09/24 03:54 Room Air Laboratory Results 01/09/24 06:34 01/09/24 06:34 PG Care Time/CCT Total # of Minutes Spent Total Time Spent with Patient: Total time spent is greater than 50% in coordination of care (as documented) at patient's floor/unit and/or counseling patient: Coding Level of Care Code 03047 SUB INP/OBS CARE 2/35MIN Diagnoses Acute diverticulitis K57.92 Lyme disease A69.20 Hypokalemia E87.6 Chronic kidney disease, stage III (moderate) N18.30 Chronic kidney disease stage 3 subtype: unspecified whether 3a or 3b GERD without esophagitis K21.9 Diarrhea R19.7 (4) Chronic kidney disease, stage III (moderate) Chronic kidney disease stage 3 subtype: unspecified whether 3a or 3b Qualified Code(s): N18.30 - Chronic kidney disease, stage 3 unspecified
[2024-01-10 07:04] LABS: Basophils # (auto) 0.06 K/uL (0.00-0.20); Basophils % (auto) 0.8 %; Eosinophils # (auto) 0.41 K/uL (0.00-0.50); Eosinophils % (auto) 5.7 %; Hematocrit (blood only) 29.9 % (37.0-47.0); Hemoglobin 9.7 g/dl (12.0-16.0); Immature Granulocytes % (auto) 1.4 %; Lymphocytes # (auto) 1.76 K/uL (1.20-3.40); Lymphocytes % (auto) 24.4 %; Mean Corpuscular Hemoglobin 28.8 pg (25.0-34.0); Mean Corpuscular Hgb Conc 32.4 g/dL (32.0-36.0); Mean Corpuscular Volume 88.7 fL (80.0-100.0); Mean Platelet Volume 9.9 fL (9.4-12.4); Monocytes # (auto) 0.68 K/uL (0.11-0.59); Monocytes % (auto) 9.4 %; Neutrophils # (auto) 4.21 K/uL (1.40-6.50); Neutrophils % (auto) 58.3 %; Platelet Count 263 K/uL (130-400); RDW Coefficient of Variation 13.6 % (11.5-14.5); RDW Standard Deviation 44.2 fL (36.4-46.3); Red Blood Count 3.37 M/uL (4.20-5.40); White Blood Count 7.22 K/ul (4.8-10.8)
[2024-01-10 07:25] LABS: BUN Creatinine Ratio 2.1 (10-20); Creatinine Clr Calc Pharmacy 44.3 ml/min; Est GFR (African American) 64.7 ml/min; Est GFR (Non-African American) 55.9 ml/min; Potassium 4.1 mmol/L (3.5-5.1)
--- NOTE | 2024-01-10 16:34 | Hospitalist Progress Note ---
Date of Service January 10, 2024 Assessment & Plan (1) Acute diverticulitis: Plan: Repeat abdominal CT scan done on January 05 looked worse. Antibiotics were switched to Unasyn, now day 5. She is getting better. White blood cell count has decreased to a normal range now. Diet has been advanced. (2) Lyme disease: Plan: IgM is negative. Doxycycline has been discontinued. (3) Hypokalemia: Plan: Corrected with parenteral replacement. Serial labs. Lasix is on hold (4) Chronic kidney disease, stage III (moderate): Plan: Monitor intake and output. Serial labs. Losartan and Lasix are on hold (5) GERD without esophagitis: Plan: Stable. Continue PPI therapy (6) Diarrhea: Plan: Metamucil has helped. She has reason to have loose stools with intravenous antibiotics accompanied by diverticulitis. C. difficile gene is positive but the C. difficile toxin is negative. Will follow along for now Plan Hopeful discharge to home tomorrow, January 10 Admission and Anticipated Discharge Date Admission Date: January 04, 2024 Subjective Alert and oriented. No distress. White blood cell count has dropped further down to 7000. She remains on Unasyn, day 5. Metamucil has helped slow down the frequency of her diarrhea. OT and PT both agree that she can go home with home health services at the time of discharge. She will be switched to an oral antibiotic at discharge. Hopefully home tomorrow, January 10 Review of Systems 2 Review of Systems: Constitutional-no fever or chills ENT-no blurred vision, no double vision, no epistaxis, no sore throat Respiratory-no cough, no wheezing, no shortness of breath Cardiac-no palpitations, no chest pain, no syncope GI-nausea and anorexia. Abdominal distention and diffuse discomfort. No melena, no hematochezia -no urinary retention, no urinary incontinence, no dysuria, no hematuria Musculoskeletal-no joint pain, no muscle tenderness Skin-no bruising, no rashes, no pruritus Neuro-no isolated weakness, no paresthesia Psych-no depression, no anxiety Physical Exam 2 Physical Exam: General-alert and oriented x3, no fever, no chills HEENT-head atraumatic and normocephalic, pupils equal and reactive to light, extraocular muscles intact Neck-no lymphadenopathy or thyromegaly, trachea midline Chest-clear to auscultation. No rales, wheezing or rhonchi Cardiac-regular rate and rhythm, normal S1 and S2 Abdomen-active bowel sounds, no hepatosplenomegaly. Left lower quadrant tenderness to palpation. Mildly distended. No masses. No rebound or guarding Extremities-no cyanosis, clubbing, or edema Neuro-cranial nerves II through XII intact, motor and sensory function within normal limits, strength symmetrical, no focal deficits Psych-normal affect, normal mood Results & Data Results & Data Vital Signs (Past 12 Hours) Vital Signs Temp Pulse Pulse Resp BP BP Pulse Ox 01/10/24 16:07 80 01/10/24 15:24 36.5 C 74 18 162/65 H 95 01/10/24 12:22 36.5 C 67 18 147/69 H 94 01/10/24 08:37 36.8 C 79 18 149/69 H 97 01/10/24 07:30 78 O2 Del Method 01/10/24 16:07 01/10/24 15:24 Room Air 01/10/24 12:22 Room Air 01/10/24 08:37 Room Air 01/10/24 07:30 Laboratory Results 01/10/24 06:01 01/10/24 06:01 PG Care Time/CCT Total # of Minutes Spent Total Time Spent with Patient: Total time spent is greater than 50% in coordination of care (as documented) at patient's floor/unit and/or counseling patient: Coding Level of Care Code 65085 SUB INP/OBS CARE 3/50MIN Diagnoses Acute diverticulitis K57.92 Lyme disease A69.20 Hypokalemia E87.6 Chronic kidney disease, stage III (moderate) N18.30 Chronic kidney disease stage 3 subtype: unspecified whether 3a or 3b GERD without esophagitis K21.9 Diarrhea R19.7 (4) Chronic kidney disease, stage III (moderate) Chronic kidney disease stage 3 subtype: unspecified whether 3a or 3b Qualified Code(s): N18.30 - Chronic kidney disease, stage 3 unspecified
[2024-01-10] MEDS: oxyCODONE HCL IR 5 MG TAB (IMMEDIATE RELEASE) PO PRN (19:25)
[2024-01-11 07:47] LABS: Basophils # (auto) 0.07 K/uL (0.00-0.20); Eosinophils # (auto) 0.45 K/uL (0.00-0.50); Eosinophils % (auto) 6.1 %; Hematocrit (blood only) 31.4 % (37.0-47.0); Hemoglobin 10.2 g/dl (12.0-16.0); Immature Granulocytes # (auto) 0.14 K/uL (0.01-0.20); Immature Granulocytes % (auto) 1.9 %; Lymphocytes # (auto) 1.67 K/uL (1.20-3.40); Lymphocytes % (auto) 22.7 %; Mean Corpuscular Hemoglobin 28.5 pg (25.0-34.0); Mean Corpuscular Hgb Conc 32.5 g/dL (32.0-36.0); Mean Corpuscular Volume 87.7 fL (80.0-100.0); Mean Platelet Volume 9.8 fL (9.4-12.4); Monocytes # (auto) 0.72 K/uL (0.11-0.59); Monocytes % (auto) 9.8 %; Neutrophils # (auto) 4.31 K/uL (1.40-6.50); Neutrophils % (auto) 58.5 %; Platelet Count 316 K/uL (130-400); RDW Coefficient of Variation 13.6 % (11.5-14.5); RDW Standard Deviation 43.8 fL (36.4-46.3); Red Blood Count 3.58 M/uL (4.20-5.40); White Blood Count 7.36 K/ul (4.8-10.8)
[2024-01-11 08:07] LABS: BUN Creatinine Ratio 2.9 (10-20); Calcium 8.6 mg/dl (8.6-10.3); Creatinine Clr Calc Pharmacy 41.2 ml/min; Est GFR (African American) 59.5 ml/min; Est GFR (Non-African American) 51.3 ml/min; Potassium 4.2 mmol/L (3.5-5.1)
--- NOTE | 2024-01-11 12:14 | Discharge Summary ---
Date of Service January 11, 2024 Admission HPI Per Admitting Provider Marisel is a pleasant 78-year-old female with PMH stage III CKD, PVD, hyperlipidemia, GERD, fibromyalgia, depression, pancreatitis, gallstones, and diverticulitis. She presented for fever, bloating, diarrhea, and abdominal pain that began yesterday on 01/02. Patient first developed abdominal pain 2 weeks ago and was diagnosed with diverticulitis. She was given a course of Augmentin for her diverticulitis which she completed yesterday. She endorses LLQ pain, which she rates 6/10 in the ED, and even worse when she has intermittent abdominal cramping. She characterized the pain as dull, achy, and constant. She took Tylenol last night for the fever, which helped with the fever but not the pain. Pain is not positional. She has not had anything to eat since last night. No recent change in diet since July. Patient is normally on a low fiber diet. She does have a history of diverticulitis, with the last occurrence occurring 2 years ago at [facility]. Temperature last night at home was low-grade (99.3 F), but she normally runs fairly low. Of note, she also notes that she was bit by a tick bite 1 week ago. She was not prescribed doxycycline by her PCP, she does have a history of severe heartburn when taking doxycycline; instead was covered with Augmentin. No history of Lyme disease to her knowledge. She has not noticed any rashes or bull's-eye's on her body. She does have an upcoming appointment on Saturday; she was post to have an MRI outpatient to follow-up for her pancreatitis, which she had in July 2023. She denies smoking, tobacco use, and alcohol use. Patient is hypertensive at 173/88 at time of admission; vitals otherwise stable. ED course: K rider 10mEq x 1 NSS 1000 mL IV ROS: Patient endorses fever, chills, PORTILLO, bloating, LLQ abdominal pain, abdominal cramping, intermittent heartburn (a couple times per week; often resolves with Tums or GasEx), or diarrhea (started after Augmentin; was constipated before this). Patient denies night-sweats, dizziness, lightheadedness, change in vision, rashes, new joint pain, chest pain, chest palpitations, SOB, cough, N/V, blood in urine/stool, dysuria, burning with urination, or numbness/tingling in the arms or legs. Principal Diagnosis Acute sigmoid diverticulitis, hypokalemia Discharge Exam General-alert and oriented x3, no fever, no chills HEENT-head atraumatic and normocephalic, pupils equal and reactive to light, extraocular muscles intact Neck-no lymphadenopathy or thyromegaly, trachea midline Chest-clear to auscultation. No rales, wheezing or rhonchi Cardiac-regular rate and rhythm, normal S1 and S2 Abdomen-active bowel sounds, no hepatosplenomegaly. Left lower quadrant tenderness to palpation. Mildly distended. No masses. No rebound or guarding Extremities-no cyanosis, clubbing, or edema Neuro-cranial nerves II through XII intact, motor and sensory function within normal limits, strength symmetrical, no focal deficits Psych-normal affect, normal mood Discharge Data Allergies Allergy/AdvReac Type Severity Reaction Status Date / Time atropine [From ] Allergy Intermediate Hives Verified 01/04/24 17:53 cimetidine [From Tagamet] Allergy Intermediate Hives Verified 01/04/24 17:53 hyoscyamine [From ] Allergy Intermediate Hives Verified 01/04/24 17:53 Iodinated Contrast Media Allergy Intermediate Hives Verified 01/04/24 17:53 [Iodinated Contrast- Oral and IV Dye] nitrofurantoin Allergy Intermediate Rash Verified 01/04/24 17:53 [From Macrobid] phenobarbital [From ] Allergy Intermediate Hives Verified 01/04/24 17:53 regadenoson Allergy Intermediate loss of Verified 01/04/24 17:53 vision, low Blood pressure scopolamine [From ] Allergy Intermediate Hives Verified 01/04/24 17:53 ketoprofen [From Orudis] Allergy Mild Rash Verified 01/04/24 17:53 diltiazem AdvReac Intermediate Hallucinati Verified 01/04/24 17:53 ng doxepin AdvReac Intermediate Hallucinati Verified 01/04/24 17:53 ng doxycycline AdvReac Intermediate Heartburn Verified 01/04/24 17:53 duloxetine [From Cymbalta] AdvReac Intermediate Swelling Verified 01/04/24 17:53 hydrocodone AdvReac Intermediate Dizziness Verified 01/04/24 17:53 lisinopril [From Zestril] AdvReac Intermediate Swelling Verified 01/04/24 17:53 pantoprazole [From Protonix] AdvReac Intermediate Dizziness Verified 01/04/24 17:53 Consultations 01/04/24 18:58 ED Decision to Admit Stat Ordered Studies 01/04/24 17:10 CT abd pelvis wo con Stat 01/06/24 07:53 CT Abdomen and Pelvis [CT abd pelvis wo con] Urgent Hospital Course (1) Acute diverticulitis: Repeat abdominal CT scan done on January 05 looked worse. Antibiotics were switched to Unasyn, now day 6. She is getting better. White blood cell count has decreased to a normal range now. Diet has been advanced. She will be discharged on Augmentin (2) Lyme disease: IgM is negative. Doxycycline has been discontinued. (3) Hypokalemia: Corrected with parenteral replacement. Serial labs. Lasix is on hold and will be resumed at discharge (4) Chronic kidney disease, stage III (moderate): Monitor intake and output. Serial labs. Losartan and Lasix are on hold and will be resumed at discharge (5) GERD without esophagitis: Stable. Continue PPI therapy (6) Diarrhea: Metamucil has helped. She has reason to have loose stools with intravenous antibiotics accompanied by diverticulitis. C. difficile gene is positive but the C. difficile toxin is negative. She wants to discontinue her Linzess at discharge. Plan Home today, January 10 Total Time Total Time Spent Total Time Spent (In Minutes): 45 minutes Discharge Plan Discharge Items Patient Disposition: Home - Self-Care Reason For Visit: ABDOMINAL PAIN Discharge Diagnosis: Acute sigmoid diverticulosis, hypokalemia Condition on Discharge: Good Activity: Resume your previous activity Non-emergency contact: Primary Care Provider Call non-emergency contact if: your symptoms worsen Follow-up/Referrals: Peter Stark [Primary Care Provider] - Diet: Regular and Heart Healthy Addtl Attending Provider Instructions: Take amoxicillin/clavulanate antibiotic twice daily for 10 more days. Use oxycodone as needed for abdominal pain Pending Studies at Discharge: No Stand-Alone Forms: My eleni, Smoking Cessation Medications and DC Order Prescriptions: New oxycodone 5 mg Tablet 5 mg PO Q6H PRN (Reason: pain) Qty: 20 0RF Psyllium Or Guar Gum Fiber Sup [Metamucil Or Nutrisource Fiber Supplement] 4 g PO BID Qty: 0 0RF Continued lorazepam 0.5 mg tablet 0.5 mg PO DAILY PRN (Reason: Anxiety) metoprolol succinate 25 mg tablet extended release 24 hr 25 mg PO BID acetaminophen [Tylenol Extra Strength] 500 mg Tablet 1,000 mg PO Q6H PRN (Reason: Back Pain) losartan 100 mg Tablet 100 mg PO QAM ergocalciferol (vitamin D2) 1,250 mcg (50,000 unit) capsule 50,000 unit PO MONTHLY Rx Instructions: MIDDLE OF THE MONTH amlodipine 10 mg tablet 10 mg PO DAILY furosemide 20 mg Tablet 40 mg PO DAILY Qty: 1 0RF lansoprazole [Prevacid SoluTab] 30 mg tablet,disintegrat, delay rel 30 mg PO QPM Discontinued Linzess 72 mcg capsule 72 mcg PO QAM Discharge Orders: Discharge Order (Routine); Ordered 01/11/24 Ordered By: Peter Venegas Admission Data Admit Date/Time: 01/04/24 19:40 Attending Provider: Peter Venegas Admit Provider: Jarod Jeffers Primary Care Provider: Peter Stark Other Providers: Jarod Jeffers Coding Level of Care Code 02000 INP/OBS DISCH >30 MIN Diagnoses Acute diverticulitis K57.92 Lyme disease A69.20 Hypokalemia E87.6 Chronic kidney disease, stage III (moderate) N18.30 Chronic kidney disease stage 3 subtype: unspecified whether 3a or 3b GERD without esophagitis K21.9 Diarrhea R19.7
== END 2024-01-11 14:59 | disposition home or self-care (01) | DRG 392 ==
LOC: ED 16:51 → SUATTDRO 19:40 → EDINP 19:40 → 2N 21:43

== ENCOUNTER 2024-01-19 09:27 | Inpatient (IN) ==
--- NOTE | 2024-01-19 09:54 | Emergency Department Note ---
ED Provider Note History of Present Illness Chief Complaint: Illness Time Seen by Provider: 01/19/24 09:38 78-year-old female presents to the emergency department with complaints of abdominal pain and bloating. Patient reports that she was admitted to the hospital and discharged last Saturday for diverticulitis. Patient reports that she started feeling better and then over the last couple days has been having increasing abdominal pain and bloating. Patient notes minimal diarrhea denies nausea and vomiting at this time. Patient has a history of recurring diverticulitis. Home Medications Medication Instructions Recorded Confirmed Type lorazepam 0.5 mg tablet 0.5 mg PO DAILY PRN Anxiety 04/14/21 01/19/24 History metoprolol succinate 25 mg 25 mg PO BID 04/14/21 01/19/24 History tablet,extended release 24 hr acetaminophen 500 mg tablet 1,000 mg PO Q6H PRN Back Pain 04/27/21 01/19/24 History (Tylenol Extra Strength) ergocalciferol (vitamin D2) 1,250 50,000 unit PO MONTHLY 05/13/23 01/19/24 History mcg (50,000 unit) capsule losartan 100 mg tablet 100 mg PO QAM 05/13/23 01/19/24 History amlodipine 10 mg tablet 10 mg PO DAILY 08/05/23 01/19/24 History furosemide 20 mg tablet 40 mg (2 x 20 mg) PO DAILY Fluid 08/19/23 01/19/24 Rx Retention #1 tab lansoprazole 30 mg delayed 30 mg PO QPM 01/04/24 01/19/24 History release,disintegrating tablet (Prevacid SoluTab) PSYLLIUM or GUAR GUM FIBER SUP 4 g PO BID ##0 01/11/24 01/19/24 Rx [METAMUCIL or NUTRISOURCE FIBER SUPPLEMENT] amoxicillin 875 mg-potassium 1 tab PO BID #20 tabs 01/11/24 01/19/24 Rx clavulanate 125 mg tablet oxycodone 5 mg tablet 5 mg PO Q6H PRN pain #20 tabs 01/11/24 01/19/24 Rx Allergies Allergy/AdvReac Type Severity Reaction Status Date / Time atropine [From ] Allergy Intermediate Hives Verified 01/04/24 17:53 cimetidine [From Tagamet] Allergy Intermediate Hives Verified 01/04/24 17:53 hyoscyamine [From ] Allergy Intermediate Hives Verified 01/04/24 17:53 Iodinated Contrast Media Allergy Intermediate Hives Verified 01/04/24 17:53 [Iodinated Contrast- Oral and IV Dye] nitrofurantoin Allergy Intermediate Rash Verified 01/04/24 17:53 [From Macrobid] phenobarbital [From ] Allergy Intermediate Hives Verified 01/04/24 17:53 regadenoson Allergy Intermediate loss of Verified 01/04/24 17:53 vision, low Blood pressure scopolamine [From ] Allergy Intermediate Hives Verified 01/04/24 17:53 ketoprofen [From Orudis] Allergy Mild Rash Verified 01/04/24 17:53 diltiazem AdvReac Intermediate Hallucinati Verified 01/04/24 17:53 ng doxepin AdvReac Intermediate Hallucinati Verified 01/04/24 17:53 ng doxycycline AdvReac Intermediate Heartburn Verified 01/04/24 17:53 duloxetine [From Cymbalta] AdvReac Intermediate Swelling Verified 01/04/24 17:53 hydrocodone AdvReac Intermediate Dizziness Verified 01/04/24 17:53 lisinopril [From Zestril] AdvReac Intermediate Swelling Verified 01/04/24 17:53 pantoprazole [From Protonix] AdvReac Intermediate Dizziness Verified 01/04/24 17:53 Past Med/Surg History Problem List (Updated 01/19/24 @ 15:39 by FILIPPO Jefferson) Colitis (Acute) Hypertension C. difficile colitis Proctocolitis Diarrhea GINA (acute kidney injury) (Acute) Hypokalemia (Acute) Failure of outpatient treatment (Acute) Leukocytosis (Acute) Diverticulitis (Acute) Lyme disease (Acute) LLQ abdominal pain (Acute) Lyme disease Cholecystitis Weight gain Nausea and vomiting Hypomagnesemia Hypokalemia Gallstones Dilated pancreatic duct Back pain (Acute) Pancreatitis (Acute) Acute pancreatitis Abdominal pain (Acute) Abnormal weight loss Odynophagia Encounter for pre-operative examination Acute diverticulitis Chronic kidney disease, stage III (moderate) (Acute) Peripheral vascular disease Hyperlipidemia GERD without esophagitis Fibromyalgia Depression Scleroderma Hyponatremia (Chronic) Slow transit constipation Vitamin D deficiency (Chronic) Chronic kidney disease, stage III (moderate) (Chronic) 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 augustine, [facility] Scleroderma Diverticulitis hx Peripheral vascular disease Depression Fibromyalgia GERD (gastroesophageal reflux disease) Spinal stenosis Anxiety "has white coat syndrome and blood pressure can get really high" Secondary hyperparathyroidism Positive NAREN (antinuclear antibody) Hyperkalemia Hypercalcemia Anemia HX Hypertension Surgical History History of left cataract extraction History of dilatation and curettage History of esophagogastroduodenoscopy (EGD) History of breast biopsy RIGHT BENIGN History of hysterectomy History of appendectomy History of tonsillectomy H/O colonoscopy Family History Other No known health problems Social History Smoking Status: Never smoker Second Hand Exposure: No; Do You Dip or Chew Tobacco: No; Hx Alcohol Use: No Hx Substance Use: No Preferred Language: Yi Communication Ability: Effective Bandsaw Operator Required: No Beliefs That Will Affect Care: None Current Living Situation: Spouse current occupational status: retired Feels Safe at Home: Yes Assistive Devices: Brace/Splint/Immobilizer, Cane, Glasses and Walker Physical Exam Vital Signs Vital Signs - 24 hr 01/19/24 09:27 01/19/24 10:09 01/19/24 12:42 Temperature 37.3 C Temperature Source Temporal Artery Scan Pulse Rate 91 H 87 Pulse Rate [Apical] 89 Respiratory Rate 16 15 Blood Pressure 134/58 L Blood Pressure [Left Arm] 137/58 L Blood Pressure Mean 83 Blood Pressure Mean [Left Arm] 84 Pulse Oximetry 100 96 Sepsis Recent Fever Within 48 Hours No Sepsis New/Unexplained Change in Mental Status N/A Sepsis Action Taken by Nursing No Action Required VITAL SIGNS - Vital signs and nursing notes were reviewed. GENERAL -78-year-old female appearing her stated age who is in no acute distress. Communicates well with provider and answers questions appropriately. HEAD - NC/AT. EYES - PERRL with EOMI bilaterally. Conjunctiva pink and moist with no injection noted. EARS - No deformities of external structures noted on gross examination bilaterally. NOSE - Midline and without cyanosis. No epistaxis or purulent drainage noted. LUNGS - Chest wall symmetric without accessory muscle use, intercostals retractions, or central cyanosis. Breath sounds clear throughout all jaffe. No wheezes, rales, or rhonchi appreciated. CARDIAC - RRR with S1/S2. No murmur, rubs, or gallops appreciated. ABDOMEN - Abdominal contour round without pulsations or visible masses. BS hyperactive all four quadrants. Moderate tenderness to palpation appreciated. Positive guarding. No palpable masses. NEUROLOGIC - Cranial nerves II through XII grossly intact. Sensory intact to light touch throughout. PSYCH - A&Ox3 and cooperates fully with examiner. Pt is very pleasant and interacts well with examiner. Course Course Patient was evaluated by myself. Patient is complaining of abdominal pain and bloating, consistent with symptoms she was experiencing with her previous hospital admission for diverticulitis. Patient was ordered IV and lab work. Patient was also ordered an abdominal CT with IV contrast. Patient denies any need for pain or nausea medication at this time, reports it being tolerable. 12:00-patient's lab results came back with a critical white blood cell count at 35.38. With patient's clinical presentation, history, and lab results, IV antibiotics and additional blood work was ordered. 12:30-patient returned from CT and I spoke with patient regarding lab results and probable stay in the hospital. Patient was understanding that admission to the hospital was likely. Patient requested medication for nausea and pain at this time. 12:45-I spoke with Dr. Ponce regarding admission to the hospital. Dr. Ponce was familiar with the case as she was involved with the patient previously. Patient to be admitted under [facility]. 13:00-please see Dr. Ponce's documentation for further treatment of this patient Consultations Consultation #1: Dr. Ponce was consulted for admission. Time: 12:45 Administered Medications Magnesium Sulfate/Dextrose (Magnesium Sulfate / D5w) 1 gm in 100 mls @ 50 mls/hr IV Q2H JAYLIN Stop: 01/19/24 18:14 Last Admin: 01/19/24 16:28 Dose: 50 mls/hr Documented By: Infusion: 01/19/24 16:28 Dose: Infused Documented By: Admin: 01/19/24 14:39 Dose: 50 mls/hr Documented By: PRISCILLA Discontinued Medications Dorado Syrup (Dorado Syrup 5 Ml Udp) 5 ml PO ONE STA Stop: 01/19/24 13:29 Last Admin: 01/19/24 14:31 Dose: 5 ml Documented By: PRISCILLA Sodium Chloride (Nss) 500 mls @ 999 mls/hr IV .Q31M JAYLIN Stop: 01/19/24 10:15 Last Infusion: 01/19/24 11:57 Dose: Infused Documented By: Admin: 01/19/24 11:18 Dose: 999 mls/hr Documented By: PRISCILLA Sodium Chloride (Nss) 1,000 mls @ 999 mls/hr IV .Q1H1M JAYLIN Stop: 01/19/24 13:15 Last Infusion: 01/19/24 16:46 Dose: Infused Documented By: Admin: 01/19/24 15:38 Dose: 999 mls/hr Documented By: ROMELIA Piperacillin Sod/Tazobactam Sod (Zosyn) 4.5 gm in 100 mls @ 200 mls/hr IV NOW ONE Stop: 01/19/24 12:41 Last Infusion: 01/19/24 13:41 Dose: Infused Documented By: Admin: 01/19/24 12:56 Dose: 200 mls/hr Documented By: PRISCILLA Potassium Chloride (K Ravi / Wtr) 10 meq in 100 mls @ 100 mls/hr IV Q1H JAYLIN Stop: 01/19/24 15:29 Last Infusion: 01/19/24 16:46 Dose: Infused Documented By: Admin: 01/19/24 15:38 Dose: 100 mls/hr Documented By: Infusion: 01/19/24 15:34 Dose: Infused Documented By: Admin: 01/19/24 14:34 Dose: 100 mls/hr Documented By: PRISCILLA Morphine Sulfate (Morphine Sulfate 4 Mg/Ml 1 Ml Carp\\Vial) 4 mg IV NOW STA Stop: 01/19/24 12:43 Last Admin: 01/19/24 12:55 Dose: 4 mg Documented By: PRISCILLA Ondansetron HCl (Ondansetron Inj 2 Mg/Ml 2 Ml Vial) 4 mg IV NOW STA Stop: 01/19/24 12:43 Last Admin: 01/19/24 12:55 Dose: 4 mg Documented By: PRISCILLA Vancomycin HCl (Vancomycin Hcl 125 Mg/2.5ml Soln) 125 mg PO ONE STA Stop: 01/19/24 13:29 Last Admin: 01/19/24 14:32 Dose: 125 mg Documented By: PRISCILLA Medical Decision Making Differential Diagnosis Gastroenteritis, diverticulitis, pancreatitis, inflammatory bowel disease Medical Records Attestation: I reviewed the patient's medical records. Home Medications was personally reviewed by me Laboratory Data 01/19/24 10:59 01/19/24 10:59 Lab Results 01/19/24 Range/Units 10:59 WBC 35.38 H* (4.8-10.8) K/ul RBC 3.99 L (4.20-5.40) M/uL Hgb 11.6 L (12.0-16.0) g/dl Hct 34.6 L (37.0-47.0) % MCV 86.7 (80.0-100.0) fL MCH 29.1 (25.0-34.0) pg MCHC 33.5 (32.0-36.0) g/dL RDW Std Deviation 42.8 (36.4-46.3) fL RDW Coeff of Jordi 13.5 (11.5-14.5) % Plt Count 341 (130-400) K/uL MPV 10.4 (9.4-12.4) fL Immature Gran % (Auto) 1.2 % Neut % (Auto) 91.5 % Lymph % (Auto) 3.1 % Addison % (Auto) 3.8 % Eos % (Auto) 0.1 % Baso % (Auto) 0.3 % Neut # (Auto) 32.39 H (1.40-6.50) K/uL Lymph # (Auto) 1.10 L (1.20-3.40) K/uL Addison # (Auto) 1.35 H (0.11-0.59) K/uL Eos # (Auto) 0.04 (0.00-0.50) K/uL Baso # (Auto) 0.09 (0.00-0.20) K/uL Immature Gran # (Auto) 0.41 H (0.01-0.20) K/uL RBC Morphology Unremarkable Sodium 134 L (136-145) mmol/L Potassium 3.3 L (3.5-5.1) mmol/L Chloride 95 L (98-107) mmol/L Carbon Dioxide 29 (21-32) mmol/L Anion Gap 10 (3-11) BUN 12 (6-23) mg/dl Creatinine 1.19 (0.6-1.2) mg/dl Est Cr Clr Drug Dosing 32.6 ml/min Est GFR ( Amer) 49.9 ml/min Est GFR (Non-Af Amer) 43.1 ml/min BUN/Creatinine Ratio 10.1 (10-20) Glucose 118 H (70-99(Fasting)) mg/dl Calcium 8.9 (8.6-10.3) mg/dl Magnesium 1.6 L (1.7-2.4) mg/dl Total Bilirubin 0.6 (0.2-1.0) mg/dl AST 16 (13-39) U/L ALT 9 (7-52) U/L Alkaline Phosphatase 58 (34-104) U/L Total Protein 6.8 (6.0-8.3) gm/dl Albumin 3.7 (3.4-5.0) gm/dl Globulin 3.1 (2.5-4.0) gm/dl Albumin/Globulin Ratio 1.2 (0.9-2) Lipase 7 L (11-82) U/L Imaging Data Radiologist's Impression: Abdomen/Pelvis CT 01/19/24 09:45 CT SCAN OF THE ABDOMEN AND PELVIS WITHOUT IV CONTRAST CLINICAL HISTORY: Generalized abdominal pain. Bloating. COMPARISON STUDY: Prior abdominal CT scans, most recently dated 01/06/2024. TECHNIQUE: CT scan of the abdomen and pelvis is performed from the lung bases to the proximal femora. Images are reviewed in the axial, sagittal, and coronal planes. IV contrast was not administered for this examination due to a reported history of contrast allergy. Note that the examination is suboptimal without oral and IV contrast. A dose lowering technique was utilized adhering to the principles of ALARA. CT DOSE: 623.68 mGy.cm FINDINGS: Lung bases: The heart is mildly enlarged and without pericardial effusion. There are small right and trace left pleural effusions with dependent atelectasis. A punctate calcified granuloma is seen in the right lower lobe. A small hiatal hernia is noted. Liver: The unenhanced liver is enlarged, measuring 20.2 cm in length. The liver is otherwise normal in contour and attenuation. There is no intrahepatic biliary ductal dilatation. A 13 mm hepatic cyst is incidentally noted and unchanged. Gallbladder: Surgically absent noting clips in the gallbladder fossa. Spleen: Normal in size and attenuation. Pancreas: The unenhanced pancreas is mildly atrophic and grossly unremarkable. Adrenal glands: Unremarkable. Kidneys: There is asymmetric cortical atrophy of the right kidney as compared to the left. No hydronephrosis is seen. There are no renal calculi identified. There is no evidence of contour deforming renal mass lesion. Abdominal vasculature: There is advanced atherosclerotic calcification and mild ectasia of the abdominal aorta. Bowel: No bowel obstruction is seen. There is no bowel obstruction. Advanced colonic diverticulosis is observed. There is a long segment of colonic wall thickening and edema which extends from the splenic flexure to the rectosigmoid with faint surrounding inflammation and fluid. Findings favor nonspecific proctocolitis. Liquid stool is seen in the right colon. The appendix is not identified and reported surgically absent. Peritoneum: No intraperitoneal free air or abdominal ascites is seen. Lymphadenopathy: None. Pelvic viscera: The bladder is distended but otherwise normal as visualized. The uterus is surgically absent. No adnexal lesion is seen. There is a small fat- containing right groin hernia. Skeletal structures: The skeletal structures are osteopenic. There is moderate lumbosacral spondylosis and mild scoliosis. No lytic or blastic lesions are seen. IMPRESSION: 1. Findings are consistent with a nonspecific proctocolitis of the left colon. Correlate clinically. 2. There is advanced colonic diverticulosis without definitive CT evidence of acute diverticulitis. The length of involvement strongly favors a colitis. A superimposed diverticulitis would be impossible to exclude. No fluid collection is seen to suggest abscess on this unenhanced examination and no intraperitoneal free air is identified. 3. Small right and trace left pleural effusions with dependent atelectasis. 4. Additional findings as above. ACT 112: Negative or not required by law. Electronically signed by: Yang Wolfe M.D. 01/19/2024 12:29 PM MDM Narrative Patient was evaluated by myself. Patient is complaining of abdominal pain and bloating, consistent with symptoms she was experiencing with her previous hospital admission for diverticulitis. Patient was ordered IV and lab work. Patient was also ordered an abdominal CT with IV contrast. Patient denies any need for pain or nausea medication at this time, reports it being tolerable. Patient's lab work shows leukocytosis so IV antibiotics were ordered. Due to lab results, history, and CT [facility] Impression Colitis Discharge Plan Visit Data Chief Complaint: Illness ED Provider: Vasu Lemus ED Midlevel Provider: Vivien Posada Discharge Problem: Colitis Patient Disposition: Admitted As Inpatient Discharge Instructions Interventions: ED Discharge Assessment Last Done: 01/19/24 15:55
[2024-01-19] MEDS: SODIUM CHLORIDE 0.9% 500 ML IV SCH (11:18)
[2024-01-19 11:34] LABS: Albumin Globulin Ratio 1.2 (0.9-2); Albumin Level 3.7 gm/dl (3.4-5.0); BUN Creatinine Ratio 10.1 (10-20); Bilirubin,Total 0.6 mg/dl (0.2-1.0); Calcium 8.9 mg/dl (8.6-10.3); Creatinine Clr Calc Pharmacy 32.6 ml/min; Est GFR (African American) 49.9 ml/min; Est GFR (Non-African American) 43.1 ml/min; Globulin 3.1 gm/dl (2.5-4.0); Potassium 3.3 mmol/L (3.5-5.1); Total Protein 6.8 gm/dl (6.0-8.3)
[2024-01-19 11:50] LABS: Hematocrit (blood only) 34.6 % (37.0-47.0); Hemoglobin 11.6 g/dl (12.0-16.0); Mean Corpuscular Hemoglobin 29.1 pg (25.0-34.0); Mean Corpuscular Hgb Conc 33.5 g/dL (32.0-36.0); Mean Corpuscular Volume 86.7 fL (80.0-100.0); Mean Platelet Volume 10.4 fL (9.4-12.4); Platelet Count 341 K/uL (130-400); RDW Coefficient of Variation 13.5 % (11.5-14.5); RDW Standard Deviation 42.8 fL (36.4-46.3); Red Blood Count 3.99 M/uL (4.20-5.40); White Blood Count 35.38 K/ul (4.8-10.8)
[2024-01-19 11:51] LABS: Basophils # (auto) 0.09 K/uL (0.00-0.20); Basophils % (auto) 0.3 %; Eosinophils # (auto) 0.04 K/uL (0.00-0.50); Eosinophils % (auto) 0.1 %; Immature Granulocytes # (auto) 0.41 K/uL (0.01-0.20); Immature Granulocytes % (auto) 1.2 %; Lymphocytes % (auto) 3.1 %; Monocytes # (auto) 1.35 K/uL (0.11-0.59); Monocytes % (auto) 3.8 %; Neutrophils # (auto) 32.39 K/uL (1.40-6.50); Neutrophils % (auto) 91.5 %; RBC Morphology Unremarkable
--- NOTE | 2024-01-19 12:31 | CT Scan Report ---
CT SCAN OF THE ABDOMEN AND PELVIS WITHOUT IV CONTRAST CLINICAL HISTORY: Generalized abdominal pain. Bloating. COMPARISON STUDY: Prior abdominal CT scans, most recently dated 01/06/2024. TECHNIQUE: CT scan of the abdomen and pelvis is performed from the lung bases to the proximal femora. Images are reviewed in the axial, sagittal, and coronal planes. IV contrast was not administered for this examination due to a reported history of contrast allergy. Note that the examination is subopti mal without oral and IV contrast. A dose lowering technique was utilized adhering to the principles o f ALARA. CT DOSE: 623.68 mGy.cm FINDINGS: Lung bases: The heart is mildly enlarged and without pericardial effusion. There are small right and trace left pleural effusions with dependent atelectasis. A punctate calcified granuloma is seen in th e right lower lobe. A small hiatal hernia is noted. Liver: The unenhanced liver is enlarged, measuring 20.2 cm in length. The liver is otherwise normal i n contour and attenuation. There is no intrahepatic biliary ductal dilatation. A 13 mm hepatic cyst i s incidentally noted and unchanged. Gallbladder: Surgically absent noting clips in the gallbladder fossa. Spleen: Normal in size and attenuation. Pancreas: The unenhanced pancreas is mildly atrophic and grossly unremarkable. Adrenal glands: Unremarkable. Kidneys: There is asymmetric cortical atrophy of the right kidney as compared to the left. No hydrone phrosis is seen. There are no renal calculi identified. There is no evidence of contour deforming herson al mass lesion. Abdominal vasculature: There is advanced atherosclerotic calcification and mild ectasia of the abdomi nal aorta. Bowel: No bowel obstruction is seen. There is no bowel obstruction. Advanced colonic diverticulosis i s observed. There is a long segment of colonic wall thickening and edema which extends from the splen ic flexure to the rectosigmoid with faint surrounding inflammation and fluid. Findings favor nonspeci fic proctocolitis. Liquid stool is seen in the right colon. The appendix is not identified and repor adelaida surgically absent. Peritoneum: No intraperitoneal free air or abdominal ascites is seen. Lymphadenopathy: None. Pelvic viscera: The bladder is distended but otherwise normal as visualized. The uterus is surgically absent. No adnexal lesion is seen. There is a small fat-containing right groin hernia. Skeletal structures: The skeletal structures are osteopenic. There is moderate lumbosacral spondylosi s and mild scoliosis. No lytic or blastic lesions are seen. IMPRESSION: 1. Findings are consistent with a nonspecific proctocolitis of the left colon. Correlate clinically. 2. There is advanced colonic diverticulosis without definitive CT evidence of acute diverticulitis. T he length of involvement strongly favors a colitis. A superimposed diverticulitis would be impossible to exclude. No fluid collection is seen to suggest abscess on this unenhanced examination and no int raperitoneal free air is identified. 3. Small right and trace left pleural effusions with dependent atelectasis. 4. Additional findings as above. ACT 112: Negative or not required by law. Electronically signed by: Yang Wolfe M.D. 01/19/2024 12:29 PM
--- NOTE | 2024-01-19 12:53 | History & Physical Report ---
Date of Service January 19, 2024 Assessment & Plan (1) Proctocolitis: Plan: With sepsis, POA with leukocytosis, tachycardia, fever, with source being colitis. Lactate normal, not hypotensive Abdominal pain, bloating, nausea, and diarrhea that began on 01/15 Recent [place] hospitalization for acute diverticulitis 01/03-01/10 (recent use of rocephin, flagyl, Unasyn, and doxycycline inpatient; augmentin outpatient) Significant leukocytosis of 35.38 with a neutrophil predominance; reported fever of 103 F this morning A/P CT revealed nonspecific proctocolitis of the left colon; no abscess; no free intraperitoneal air PCR stool ordered, pending C. diff ordered but was gene positive/toxin negative last admission Blood cultures pending Empiric Zosyn 4.5 g IV x 1 given in the ED but none further needed Supportive care IVF resuscitation with LR at 100mL/hr x 3 Acetaminophen as needed for pain/fever Oxycodone 5 mg p.o. q6h as needed for breakthrough pain Zofran as needed for nausea/vomiting A.m. CBC, BMP, mag (2) Sepsis: Plan: as above (3) C. difficile colitis: Plan: Patient's C. difficile was gene (+) toxin (-) on 01/08/2024 during her most recent hospital admission Repeat C. difficile ordered, pending Suspect C. difficile given leukocytosis, recent hospitalization with use of antibiotics for diverticulitis Will treat empirically with p.o. vancomycin 125 mg q6h; non-fulminant Contact isolation precautions for now (4) Hypokalemia: Plan: Mild; K 3.3 on arrival Likely secondary to GI losses K rider 20 mill equivalents IV Hold Lasix Recheck a.m. K (5) Hypomagnesemia: Plan: Mild; Mag 1.6 on arrival Magnesium sulfate 1g IV x 2 Recheck a.m. Mag (6) Chronic kidney disease, stage III (moderate): Plan: Monitor intake and output Hold losartan if CrCl drops to <30.0 (7) Hypertension: Plan: Continue metoprolol, losartan, and amlodipine Plan Disposition: Admit to [facility] telemetry Full code VTE PPx: Heparin 5000u SQ q12h History of Present Illness Chief Complaint: Abdominal pain, bloating, fever, diarrheal illness Primary Care Provider: Peter Joiner is a pleasant 78-year-old female with PMH of HTN, CKD stage III, fibromyalgia, depression, GERD, hyperlipidemia, diverticulitis, pancreatitis, and gallstones. She presented for abdominal pain, bloating, chills, and diarrhea that began again on 01/15. Recent [place] hospitalization from 01/03- 01/10 for acute diverticulitis. She was discharged on Metamucil for the diarrhea, as well as oxycodone for the abdominal pain. She initially thought the bloating was secondary to Metamucil use, as she is not accustomed to taking it, but then she developed fever and chills in addition to the abdominal pain. She endorses abdominal located in the lower quadrants transversely (LLQ worse than RLQ). She characterizes it as a dull, cramping, burning pain that is constant, but ramps up at times. She rates the pain 7/10 at present after receiving pain medicine in the ED; 9/10 at worst. She has been taking oxycodone 5 mg 1 tablet daily at bedtime for the pain. Patient has stayed on a full liquid diet since she was discharged from the hospital on 01/10; has not tried to tolerate solids yet. Patient also endorses fever/chills at home that would get up to 100 F over the weekend, but then was around 103 F on the morning of 01/18 before coming in. She has been taking Tylenol for the fever. Her stool has also become loose again after she stopped taking Metamucil on Saturday; she denies any blood in her stool. Her stool is not liquid or dark like it was when she came into the hospital the last time. No sick contacts. No history of IBS, Crohn's, or ulcerative colitis. She denies history of C. difficile in the past. She does not believe her stool has changed and smell, or has become malodorous. In the past she has had problems with constipation, and was on Linzess/85. She denies smoking, tobacco use, recent alcohol use. No supplemental oxygen at baseline, or CPAP at night. Patient's vital signs are stable at time of admission. ED course: Zosyn 4.5 g IV Morphine sulfate 4 mg IV NSS 500 mL IV Zofran 4 mg IV ROS: Patient endorses fever, chills, night-sweats, dizziness last night (resolved), low transverse abd pain, abdominal bloating/cramping, and recurrence of loose stools. Patient denies lightheadedness, PORTILLO, chest pain, SOB, chest palpitations, cough, pleuritic CP, blood in stool, melena, burning with urination, dysuria, blood in urine, or numbness/tingling in arms or legs. Allergies Allergy/AdvReac Type Severity Reaction Status Date / Time atropine [From ] Allergy Intermediate Hives Verified 01/04/24 17:53 cimetidine [From Tagamet] Allergy Intermediate Hives Verified 01/04/24 17:53 hyoscyamine [From ] Allergy Intermediate Hives Verified 01/04/24 17:53 Iodinated Contrast Media Allergy Intermediate Hives Verified 01/04/24 17:53 [Iodinated Contrast- Oral and IV Dye] nitrofurantoin Allergy Intermediate Rash Verified 01/04/24 17:53 [From Macrobid] phenobarbital [From ] Allergy Intermediate Hives Verified 01/04/24 17:53 regadenoson Allergy Intermediate loss of Verified 01/04/24 17:53 vision, low Blood pressure scopolamine [From ] Allergy Intermediate Hives Verified 01/04/24 17:53 ketoprofen [From Orudis] Allergy Mild Rash Verified 01/04/24 17:53 diltiazem AdvReac Intermediate Hallucinati Verified 01/04/24 17:53 ng doxepin AdvReac Intermediate Hallucinati Verified 01/04/24 17:53 ng doxycycline AdvReac Intermediate Heartburn Verified 01/04/24 17:53 duloxetine [From Cymbalta] AdvReac Intermediate Swelling Verified 01/04/24 17:53 hydrocodone AdvReac Intermediate Dizziness Verified 01/04/24 17:53 lisinopril [From Zestril] AdvReac Intermediate Swelling Verified 01/04/24 17:53 pantoprazole [From Protonix] AdvReac Intermediate Dizziness Verified 01/04/24 17:53 Home Medications Medication Instructions Recorded Confirmed Type lorazepam 0.5 mg tablet 0.5 mg PO DAILY PRN Anxiety 04/14/21 01/19/24 History metoprolol succinate 25 mg 25 mg PO BID 04/14/21 01/19/24 History tablet,extended release 24 hr acetaminophen 500 mg tablet 1,000 mg PO Q6H PRN Back Pain 04/27/21 01/19/24 History (Tylenol Extra Strength) ergocalciferol (vitamin D2) 1,250 50,000 unit PO MONTHLY 05/13/23 01/19/24 History mcg (50,000 unit) capsule losartan 100 mg tablet 100 mg PO QAM 05/13/23 01/19/24 History amlodipine 10 mg tablet 10 mg PO DAILY 08/05/23 01/19/24 History furosemide 20 mg tablet 40 mg (2 x 20 mg) PO DAILY Fluid 08/19/23 01/19/24 Rx Retention #1 tab lansoprazole 30 mg delayed 30 mg PO QPM 01/04/24 01/19/24 History release,disintegrating tablet (Prevacid SoluTab) PSYLLIUM or GUAR GUM FIBER SUP 4 g PO BID ##0 01/11/24 01/19/24 Rx [METAMUCIL or NUTRISOURCE FIBER SUPPLEMENT] amoxicillin 875 mg-potassium 1 tab PO BID #20 tabs 01/11/24 01/19/24 Rx clavulanate 125 mg tablet oxycodone 5 mg tablet 5 mg PO Q6H PRN pain #20 tabs 01/11/24 01/19/24 Rx Past Med/Surg History Problem List (Updated 01/19/24 @ 18:40 by Trang Ponce MD) Sepsis Colitis (Acute) Hypertension C. difficile colitis Proctocolitis Diarrhea GINA (acute kidney injury) (Acute) Hypokalemia (Acute) Failure of outpatient treatment (Acute) Leukocytosis (Acute) Diverticulitis (Acute) Lyme disease (Acute) LLQ abdominal pain (Acute) Lyme disease Cholecystitis Weight gain Nausea and vomiting Hypomagnesemia Hypokalemia Gallstones Dilated pancreatic duct Back pain (Acute) Pancreatitis (Acute) Acute pancreatitis Abdominal pain (Acute) Abnormal weight loss Odynophagia Encounter for pre-operative examination Acute diverticulitis Chronic kidney disease, stage III (moderate) (Acute) Peripheral vascular disease Hyperlipidemia GERD without esophagitis Fibromyalgia Depression Scleroderma Hyponatremia (Chronic) Slow transit constipation Vitamin D deficiency (Chronic) Chronic kidney disease, stage III (moderate) (Chronic) 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 augustine, s Scleroderma Diverticulitis hx Peripheral vascular disease Depression Fibromyalgia GERD (gastroesophageal reflux disease) Spinal stenosis Anxiety "has white coat syndrome and blood pressure can get really high" Secondary hyperparathyroidism Positive NAREN (antinuclear antibody) Hyperkalemia Hypercalcemia Anemia HX Hypertension Surgical History History of left cataract extraction History of dilatation and curettage History of esophagogastroduodenoscopy (EGD) History of breast biopsy RIGHT BENIGN History of hysterectomy History of appendectomy History of tonsillectomy H/O colonoscopy Family History Other No known health problems Social History Smoking Status: Never smoker Second Hand Exposure: No; Do You Dip or Chew Tobacco: No; Hx Alcohol Use: No Hx Substance Use: No Preferred Language: Yakut Communication Ability: Effective Candles Pourer Required: No Beliefs That Will Affect Care: None Current Living Situation: Spouse current occupational status: retired Feels Safe at Home: Yes Assistive Devices: Glasses and Walker Review of Systems Review of Systems: See HPI above Physical Exam Physical Exam: General: no acute distress; pleasant affect; non-toxic appearing; frail appearing; cooperative; SpO2 96% on RA HEENT: normocephalic, atraumatic; no scleral icterus; PERRLA; moist mucus membrane; vision and hearing grossly intact Neck: supple; no lymphadenopathy; trachea midline Skin: warm, dry without signs of tenting; no cyanosis; no rashes, bruising, lesions, or erythema noted CV: chest wall NTP; RRR; S1/S2 normal; no murmurs/rubs/gallops; pulses intact and symmetric at radial, DP, and PT Lungs: no acute respiratory distress; symmetrical chest wall expansion; clear breath sounds across all lung jaffe w/o adventitious sounds; no wheezing ABD: Soft; RLQ is tender, LLQ is very tender; moderate bloating/distention; BS present; no rebound/guarding; no rashes or bruising on the abdomen or flanks MSK: no tics or fasciculations; no edema noted in the LEs b/l, nonerythematous Neuro: A&Ox3; normal mood and affect; fluent speech; no focal deficits; sensation grossly intact in the LEs b/l Results & Data Results & Data Vital Signs (Past 12 Hours) Vital Signs Temp Pulse Pulse Resp BP BP Pulse Ox 01/19/24 12:42 87 01/19/24 10:09 89 15 137/58 L 96 01/19/24 09:27 37.3 C 91 H 16 134/58 L 100 Laboratory Results Abnormal lab results 01/19/24 Range/Units 10:59 WBC 35.38 H* (4.8-10.8) K/ul RBC 3.99 L (4.20-5.40) M/uL Hgb 11.6 L (12.0-16.0) g/dl Hct 34.6 L (37.0-47.0) % Neut # (Auto) 32.39 H (1.40-6.50) K/uL Lymph # (Auto) 1.10 L (1.20-3.40) K/uL Gaines # (Auto) 1.35 H (0.11-0.59) K/uL Immature Gran # (Auto) 0.41 H (0.01-0.20) K/uL Sodium 134 L (136-145) mmol/L Potassium 3.3 L (3.5-5.1) mmol/L Chloride 95 L (98-107) mmol/L Glucose 118 H (70-99(Fasting)) mg/dl Lipase 7 L (11-82) U/L Diagnostic Findings Abdomen/Pelvis CT 01/19/24 09:45 CT SCAN OF THE ABDOMEN AND PELVIS WITHOUT IV CONTRAST CLINICAL HISTORY: Generalized abdominal pain. Bloating. COMPARISON STUDY: Prior abdominal CT scans, most recently dated 01/06/2024. TECHNIQUE: CT scan of the abdomen and pelvis is performed from the lung bases to the proximal femora. Images are reviewed in the axial, sagittal, and coronal planes. IV contrast was not administered for this examination due to a reported history of contrast allergy. Note that the examination is suboptimal without oral and IV contrast. A dose lowering technique was utilized adhering to the principles of ALARA. CT DOSE: 623.68 mGy.cm FINDINGS: Lung bases: The heart is mildly enlarged and without pericardial effusion. There are small right and trace left pleural effusions with dependent atelectasis. A punctate calcified granuloma is seen in the right lower lobe. A small hiatal hernia is noted. Liver: The unenhanced liver is enlarged, measuring 20.2 cm in length. The liver is otherwise normal in contour and attenuation. There is no intrahepatic biliary ductal dilatation. A 13 mm hepatic cyst is incidentally noted and unchanged. Gallbladder: Surgically absent noting clips in the gallbladder fossa. Spleen: Normal in size and attenuation. Pancreas: The unenhanced pancreas is mildly atrophic and grossly unremarkable. Adrenal glands: Unremarkable. Kidneys: There is asymmetric cortical atrophy of the right kidney as compared to the left. No hydronephrosis is seen. There are no renal calculi identified. There is no evidence of contour deforming renal mass lesion. Abdominal vasculature: There is advanced atherosclerotic calcification and mild ectasia of the abdominal aorta. Bowel: No bowel obstruction is seen. There is no bowel obstruction. Advanced co lonic diverticulosis is observed. There is a long segment of colonic wall thickening and edema which extends from the splenic flexure to the rectosigmoid with faint surrounding inflammation and fluid. Findings favor nonspecific proctocolitis. Liquid stool is seen in the right colon. The appendix is not identified and reported surgically absent. Peritoneum: No intraperitoneal free air or abdominal ascites is seen. Lymphadenopathy: None. Pelvic viscera: The bladder is distended but otherwise normal as visualized. The uterus is surgically absent. No adnexal lesion is seen. There is a small fat- containing right groin hernia. Skeletal structures: The skeletal structures are osteopenic. There is moderate lumbosacral spondylosis and mild scoliosis. No lytic or blastic lesions are seen. IMPRESSION: 1. Findings are consistent with a nonspecific proctocolitis of the left colon. Correlate clinically. 2. There is advanced colonic diverticulosis without definitive CT evidence of ac [place]anda diverticulitis. The length of involvement strongly favors a colitis. A superimposed diverticulitis would be impossible to exclude. No fluid collection is seen to suggest abscess on this unenhanced examination and no intraperitoneal free air is identified. 3. Small right and trace left pleural effusions with dependent atelectasis. 4. Additional findings as above. ACT 112: Negative or not required by law. Electronically signed by: Yang Wolfe M.D. 01/19/2024 12:29 PM Code Status & VTE Plan Code Status Full code VTE Prophylaxis Plan VTE Prophylaxis will be ordered: Yes Supervising Physician Co-Signing Physician Notes JAMISON Buck Note: I personally saw and examined the patient. I verified all zavala points and agree with JAMISON Echevarria with the following exceptions and/or additions: S-patient presents with loose stools at home after recent discharge for acute diverticulitis and received antibiotics. She has really not been able to eat much at all over the last 3 days and typically has a history of chronic constipation. She has not had any further diarrhea since she stopped taking Metamucil 3 days ago, but has had worsening left lower quadrant abdominal pain, abdominal bloating, very poor appetite, and fevers and chills. No nausea or vomiting. No chest pains or shortness of breath. She is making urine but less today than previously. History and ROS otherwise reviewed as above O- Vitals reviewed Gen: AAOx3, NAD HEENT: Anicteric sclerae, EOMI CV: RRR no mgr nl S1S2 Pulm: CTAB no wcr Abd: +BS soft mild TTP in LLQ without guarding or rebound, ND no masses or hernias Ext: No edema Skin: No rashes, warm/dry Neuro: Full strength throughout CBC, CMP, lactate,Magnesium, lipase reviewed CT abdomen/pelvis reviewed A/C-49-rnul-old female here with sepsis most likely from colitis, likely C. difficile colitis. Check C. difficile and stool PCR panel, but start p.o. vancomycin empirically. She does not need any further IV antibiotics at this time. Volume resuscitate with IV fluids and hold home diuretics Patient would like to try some mashed potatoes and soft foods-advance diet PG Care Time/CCT Total # of Minutes Spent Total Time Spent with Patient: Total time spent is greater than 50% in coordination of care (as documented) at patient's floor/unit and/or counseling patient: Coding [place] [address] INT INP/OBS CARE 3/75MIN Patient Type Established Medical Decision Making High Complexity Diagnoses Proctocolitis K52.9 Sepsis A41.9 C. difficile colitis A04.72 Hypokalemia E87.6 Hypomagnesemia E83.42 Chronic kidney disease, stage III (moderate) N18.3 Hypertension I10
[2024-01-19] MEDS: ONDANSETRON INJ 2 MG/ML 2 ML VIAL IV STA (12:55)
[2024-01-19] MEDS: MoRPHine SULFATE 4 MG/ML 1 ML CARP\\VIAL IV STA (12:55)
[2024-01-19] MEDS: PIPERACILLIN/TAZOBACTAM 4.5 GM/100 ML BAG IV ONE (12:56)
[2024-01-19 14:06] LABS: Magnesium 1.6 mg/dl (1.7-2.4)
[2024-01-19] MEDS: CHERRY SYRUP 5 ML UDP PO STA (14:31)
[2024-01-19] MEDS: VANCOMYCIN HCL 125 MG/2.5ML SOLN PO STA (14:32)
[2024-01-19] MEDS: POTASSIUM CHLORIDE / WTR 10 MEQ/100 ML PLCT IV SCH (14:34)
[2024-01-19] MEDS: MAGNESIUM SULFATE / D5W 1 GM/100 ML BAG IV SCH (14:39)
[2024-01-19] MEDS: SODIUM CHLORIDE 0.9% 1,000 ML IV SCH (15:38)
[2024-01-19] MEDS: ACETAMINOPHEN 325 MG TAB PO PRN (18:26)
[2024-01-19] MEDS: LACTATED RINGER'S 1,000 ML IV SCH (18:26)
[2024-01-19] MEDS: OPTIRAY 320 100ml IV ONE (19:28)
[2024-01-19] MEDS: VANCOMYCIN HCL 125 MG/2.5ML SOLN PO SCH (19:49)
[2024-01-19] MEDS: CHERRY SYRUP 5 ML UDP PO SCH (19:49)
[2024-01-19] MEDS: LANSOPRAZOLE 30 MG SOLTAB PO SCH (19:50)
[2024-01-19] MEDS: METOPROLOL SUCC 25MG EXT REL TAB PO SCH (19:51)
[2024-01-19] MEDS: HEPARIN SOD 5,000 UNIT/0.5 ML VIAL SQ SCH (19:52)
[2024-01-19 21:16] LABS: Adenovirus F 40/41 PCR Not Detected (NotDetected); Astrovirus PCR Not Detected (NotDetected); Campylobacter PCR Not Detected (NotDetected); Cryptosporidium PCR Not Detected (NotDetected); Cyclospora cayetanensis PCR Not Detected (NotDetected); Entamoeba histolytica PCR Not Detected (NotDetected); Enteroaggregative E.coli(EAEC) Not Detected (NotDetected); Enteropathogenic E.coli (EPEC) Not Detected (NotDetected); Enterotoxigenic E.coli (ETEC) Not Detected (NotDetected); Giardia lamblia PCR Not Detected (NotDetected); Norovirus GI/GII PCR Not Detected (NotDetected); Plesiomonas shigelloides PCR Not Detected (NotDetected); Rotavirus A PCR Not Detected (NotDetected); Salmonella PCR Not Detected (NotDetected); Sapovirus PCR Not Detected (NotDetected); Shiga-like Toxin E.coli (STEC) Not Detected (NotDetected); Shigella/Enteroinvasive E.coli Not Detected (NotDetected); Vibrio cholerae PCR Not Detected (NotDetected); Vibrio species PCR Not Detected (NotDetected); Yersinia enterocolitica PCR Not Detected (NotDetected)
[2024-01-19 21:18] LABS: Cdiff Toxin B Gene (2yr or >) Positive Cdiff Gene (Neg)
[2024-01-19] MEDS: oxyCODONE HCL IR 5 MG TAB (IMMEDIATE RELEASE) PO PRN (21:30)
[2024-01-19] MEDS: ONDANSETRON INJ 2 MG/ML 2 ML VIAL IV PRN (21:32)
[2024-01-19 22:16] LABS: Cdiff Antigen Positive
[2024-01-19 22:17] LABS: Cdiff Toxin A+B Positive Cdiff Toxin (Negative)
[2024-01-20 07:07] LABS: Hematocrit (blood only) 28.9 % (37.0-47.0); Hemoglobin 9.4 g/dl (12.0-16.0); Mean Corpuscular Hemoglobin 28.5 pg (25.0-34.0); Mean Corpuscular Hgb Conc 32.5 g/dL (32.0-36.0); Mean Corpuscular Volume 87.6 fL (80.0-100.0); Mean Platelet Volume 9.8 fL (9.4-12.4); Platelet Count 322 K/uL (130-400); RDW Coefficient of Variation 13.7 % (11.5-14.5); RDW Standard Deviation 43.7 fL (36.4-46.3); White Blood Count 30.02 K/ul (4.8-10.8)
[2024-01-20 07:17] LABS: BUN Creatinine Ratio 9.5 (10-20); Creatinine Clr Calc Pharmacy 30.8 ml/min; Est GFR (African American) 46.6 ml/min; Est GFR (Non-African American) 40.2 ml/min; Magnesium 1.9 mg/dl (1.7-2.4); Potassium 3.4 mmol/L (3.5-5.1)
[2024-01-20 07:23] LABS: Basophils # (auto) 0.07 K/uL (0.00-0.20); Basophils % (auto) 0.2 %; Eosinophils # (auto) 0.11 K/uL (0.00-0.50); Eosinophils % (auto) 0.4 %; Hypersegmented Neutrophils 1+; Immature Granulocytes # (auto) 0.68 K/uL (0.01-0.20); Immature Granulocytes % (auto) 2.3 %; Lymphocytes # (auto) 1.44 K/uL (1.20-3.40); Lymphocytes % (auto) 4.8 %; Monocytes # (auto) 0.53 K/uL (0.11-0.59); Monocytes % (auto) 1.8 %; Neutrophils # (auto) 27.19 K/uL (1.40-6.50); Neutrophils % (auto) 90.5 %; Toxic Vacuolation 1+
[2024-01-20] MEDS: LOSARTAN POTASSIUM 50 MG TAB PO SCH (08:22)
[2024-01-20] MEDS: amLODIPine BESYLATE 5 MG TAB PO SCH (08:22)
[2024-01-20] MEDS: POTASSIUM CHLORIDE CRTAB 20 MEQ TABCR PO STA (10:02)
[2024-01-20] MEDS: MAGNESIUM SULFATE / D5W 1 GM/100 ML BAG IV ONE (10:03)
--- NOTE | 2024-01-20 20:36 | Hospitalist Progress Note ---
Date of Service January 20, 2024 Assessment & Plan (1) Proctocolitis: Plan: With sepsis, POA -with leukocytosis, tachycardia, fever, with source being colitis. Lactate normal, not hypotensive Abdominal pain, bloating, nausea, and diarrhea that began on 01/15 after recent [place] hospitalization for acute diverticulitis 01/03-01/10 (recent use of rocephin, flagyl, Unasyn, and doxycycline inpatient; augmentin outpatient) A/P CT revealed nonspecific proctocolitis of the left colon; no abscess; no free intraperitoneal air PCR stool negative, but C. diff gene and toxin positive Remains with fevers and abd pain, diarrhea but appetite improving, leukocytosis improving, Blood cultures remain NGTD Received 3 L LR-none further needed as has improved po intake Continue Vanco 125mg po qid x 10 day course through 01/28/24 Acetaminophen as needed for pain/fever, Oxycodone 5 mg p.o. q6h as needed for breakthrough pain Zofran as needed for nausea/vomiting Follow CBC, BMP, mag and replace lytes as needed--> give IV mag and po KCl today (2) Sepsis: Plan: as above (3) C. difficile colitis: Plan: as above (4) Hypokalemia: Plan: Secondary to GI losses Remains mildly low, replace with po KCl Continue to hold home Lasix and follow BMP (5) Chronic kidney disease, stage III (moderate): Plan: Renal function at baseline, sessions clerk 1.26, has one functioning kidney Continue losartan, holding lasix avoid nephrotoxins and renally dose meds Follow BMP (6) Hypertension: Plan: BPs controlled Continue metoprolol, losartan, and amlodipine Holding lasix Plan GERD-continue PPI Axiety-continue ativan prn Disposition:continued stay MedSurg telemetry Full code VTE PPx: Heparin 5000u SQ q12h Admission and Anticipated Discharge Date Admission Date: January 19, 2024 Subjective Pt reports ongoing LLQ pain and 6-8 loose, foul smelling stools today. Having chills. Appetite has improved and she is eating solid foods Tele with NSR rates 70-80s Physical Exam Constitutional: WD/WN, vitals as above Respiratory: normal respiratory effort, lungs clear to auscultation Cardiovascular: RRR, no murmur, no edema Gastrointestinal (Abdomen): Inspection/Auscultation: + abdomen distended (mild) and normal bowel sounds Percussion/Palpation: + abdomen tender (+TTP LLQ w/o guarding or rebound) and abdomen soft Psychiatric: A+Ox3, euthymic affect Results & Data Results & Data Vital Signs (Past 12 Hours) Vital Signs Temp Pulse Pulse Resp BP BP Pulse Ox 01/20/24 19:11 36.4 C L 18 95/45 L 84/45 L 98 01/20/24 16:00 01/20/24 15:43 38.2 C H 92 H 18 124/61 90 01/20/24 13:57 86 01/20/24 12:03 38.0 C H 92 H 18 114/62 94 01/20/24 10:41 Pulse Ox O2 Del Method O2 Del Method 01/20/24 19:11 Room Air 01/20/24 16:00 95 Room Air 01/20/24 15:43 Room Air 01/20/24 13:57 01/20/24 12:03 Room Air 01/20/24 10:41 Room Air Laboratory Results CBC,BMP, magnesium, blood cxs, Stool PCR, and C. diff test reviewed PG Care Time/CCT Total # of Minutes Spent Total Time Spent with Patient: Total time spent is greater than 50% in coordination of care (as documented) at patient's floor/unit and/or counseling patient: Coding Level of Care Code 27951 SUB INP/OBS CARE 235MIN Diagnoses Proctocolitis K52.9 Sepsis A41.9 C. difficile colitis A04.72 Hypokalemia E87.6 Chronic kidney disease, stage III (moderate) N18.3 Hypertension I10
[2024-01-20] MEDS: LORazepam 0.5 MG TAB PO PRN (22:47)
[2024-01-21 07:34] LABS: Hematocrit (blood only) 27.5 % (37.0-47.0); Mean Corpuscular Hemoglobin 28.5 pg (25.0-34.0); Mean Corpuscular Hgb Conc 32.7 g/dL (32.0-36.0); Mean Platelet Volume 10.3 fL (9.4-12.4); Platelet Count 323 K/uL (130-400); RDW Coefficient of Variation 13.6 % (11.5-14.5); RDW Standard Deviation 43.3 fL (36.4-46.3); Red Blood Count 3.16 M/uL (4.20-5.40); White Blood Count 26.86 K/ul (4.8-10.8)
[2024-01-21 07:49] LABS: BUN Creatinine Ratio 11.8 (10-20); Calcium 7.5 mg/dl (8.6-10.3); Creatinine Clr Calc Pharmacy 28.5 ml/min; Est GFR (African American) 42.5 ml/min; Est GFR (Non-African American) 36.7 ml/min; Magnesium 1.9 mg/dl (1.7-2.4); Potassium 2.8 mmol/L (3.5-5.1)
[2024-01-21 08:02] LABS: Basophils # (auto) 0.04 K/uL (0.00-0.20); Basophils % (auto) 0.1 %; Immature Granulocytes # (auto) 2.31 K/uL (0.01-0.20); Immature Granulocytes % (auto) 8.6 %; Lymphocytes # (auto) 0.95 K/uL (1.20-3.40); Lymphocytes % (auto) 3.5 %; Monocytes # (auto) 1.16 K/uL (0.11-0.59); Monocytes % (auto) 4.3 %; Neutrophils % (auto) 83.5 %
--- NOTE | 2024-01-21 08:03 | Hospitalist Progress Note ---
Date of Service January 21, 2024 Assessment & Plan (1) Proctocolitis: Plan: With sepsis, POA -with leukocytosis, tachycardia, fever, with source being colitis. Lactate normal, not hypotensive Abdominal pain, bloating, nausea, and diarrhea that began on 01/15 after recent [place] hospitalization for acute diverticulitis 01/03-01/10 (recent use of rocephin, flagyl, Unasyn, and doxycycline inpatient; augmentin outpatient) A/P CT revealed nonspecific proctocolitis of the left colon; no abscess; no free intraperitoneal air PCR stool negative, but C. diff gene and toxin positive Remains with fevers and abd pain, diarrhea but appetite improving, leukocytosis improving, Blood cultures remain negative Received 3 L LR-none further needed as has improved po intake however appearing dry/dehydrated on exam and reporting 6BM overnight, 2-3 this morning during eval 01/20 Cr elevated 1.36, suspect from diarrhea loses. Losartan placed on hold (got dose this morning) 1L IVF + 10meq KCL @ 80cc/hr for today. Additional 40meq Kcl for K 2.8 this mor tatianna, again suspected from diarrhea losses Zofran prn, tylenol as needed for pain, oxycodone for breakthrough Continue Vanco 125mg po qid x 10 day course through 01/28/24 WBC 30k--> 26.8k Last fever 38.2C afternoon 01/19 blood cultures remain NGTD and has been afebrile since last evening ?consideration for Dificid, however will continue vanco for now given first occurrence and in setting of recent abx for diverticulitis this past month. Monitor labs/exam on repeat (2) Sepsis: Plan: as above (3) C. difficile colitis: Plan: as above (4) Hypokalemia: Plan: Secondary to GI losses, additional 40meq kcl this morning along with IVF ordered. Home lasix remains on hold, losartan placed on hold given GINA from dehydration/diarrhea. Mag wnl BMP in AM (5) GINA (acute kidney injury): Plan: GINA on CKD, ?diarrheal losses. Was provided 3L LR on admission, holding further. Placed losartan on hold, did get dose this morning. Lasix on hold on admission. O2 sat drop w/ sleeping but no significant pulm congestion on CXR and on room air this afternoon during eval, no SOB reported. ?underlying MARIAELENA (prior ECHO w/ elevated RVSP) Renal dose meds/avoid nephrotoxins as able BMP in AM (6) Chronic kidney disease, stage III (moderate): Plan: Renal function at baseline on admission, slightly above prior Cr to 1.26 on 01/19 and continued on losartan, lasix remained on hold Cr to 1.36, dehydrated on exam. 1L IVF ordered as above, losartan placed on hold for AM (BP 104-59) Renal dose meds/avoid nephrotoxins BMP in AM (7) Hypertension: Plan: BPs controlled and remains on metoprolol, amlodipine Lasix on hold as above, placed losartan on hold given elevated Cr and was given this morning -- BP low normal 104/59 but no dizziness and will monitor w/ IVF Chronic problems GERD-continue PPI, on lansoprazole and appears on home med list. Prior admission w/ reported allergy to PPI/H2 but tolerating lansoprazole and no dizziness reported. Anxiety-continue ativan prn Plan VTE PPx: Heparin 5000u SQ q12h while inpatient Dispo: continued inpatient stay Admission and Anticipated Discharge Date Admission Date: January 19, 2024 Supervising Physician Co-Signing Physician Notes The patient was not seen by me. The chart was reviewed. Case discussed with JAMISON Baker. Agree with assessment and plan Subjective Evaluated after lunch, daughter Erica in room. Had a little rough night, feeling washed out. 6 BM overnight, 2-3 this mrtracy. No blood. Little less diarrhea since admission but ongoing crampiness/sensation, no overt pain/need for pain medication. Discussed continuing Vancomycin PO but if ineffective could consider dificid. No known prior hx cdiff but was on recent antibiotics. Physical Exam Physical Exam: General: 78yo female sitting up in bed, daughter in room, NAD but fatigued/was hed out appearing HEENT: head atraumatic, mm DRY, trachea midline Resp: even/unlabored, slightly diminished in the bases but no w/c, on room air CV: RRR, no significant m/r/g, no pitting edema/calf tenderness GI: +BS, DISTENDED, no overt tenderness but generalized cramping MSK/Neuro: nonfocal, no slurred speech, answering questions appropriately Psych: AOx3, cooperative with exam Results & Data Results & Data Vital Signs (Past 12 Hours) Vital Signs Temp Pulse Pulse Resp BP Pulse Ox O2 Del Method 01/21/24 07:37 37.0 C 88 18 101/57 L 97 Nasal Cannula 01/21/24 02:00 36.7 C 98 H 22 118/69 98 Nasal Cannula 01/21/24 00:00 37.0 C 105 H 20 142/51 H 93 Nasal Cannula 01/20/24 21:55 84 O2 Flow Rate 01/21/24 07:37 2 01/21/24 02:00 2 01/21/24 00:00 2 01/20/24 21:55 Laboratory Results 01/21/24 Range/Units 06:46 WBC 26.86 H (4.8-10.8) K/ul RBC 3.16 L (4.20-5.40) M/uL Hgb 9.0 L (12.0-16.0) g/dl Hct 27.5 L (37.0-47.0) % MCV 87.0 (80.0-100.0) fL MCH 28.5 (25.0-34.0) pg MCHC 32.7 (32.0-36.0) g/dL RDW Std Deviation 43.3 (36.4-46.3) fL RDW Coeff of Jordi 13.6 (11.5-14.5) % Plt Count 323 (130-400) K/uL MPV 10.3 (9.4-12.4) fL Immature Gran % (Auto) 8.6 % Neut % (Auto) 83.5 % Lymph % (Auto) 3.5 % [place] % (Auto) 4.3 % Eos % (Auto) 0.0 % Baso % (Auto) 0.1 % Neut # (Auto) 22.40 H (1.40-6.50) K/uL Lymph # (Auto) 0.95 L (1.20-3.40) K/uL [place] # (Auto) 1.16 H (0.11-0.59) K/uL Eos # (Auto) 0.00 (0.00-0.50) K/uL Baso # (Auto) 0.04 (0.00-0.20) K/uL Immature Gran # (Auto) 2.31 H (0.01-0.20) K/uL Sodium 131 L (136-145) mmol/L Potassium 2.8 L (3.5-5.1) mmol/L Chloride 100 (98-107) mmol/L Carbon Dioxide 23 (21-32) mmol/L Anion Gap 8 (3-11) BUN 16 (6-23) mg/dl Creatinine 1.36 H (0.6-1.2) mg/dl Est Cr Clr Drug Dosing 28.5 ml/min Est GFR ( Amer) 42.5 ml/min Est GFR (Non-Af Amer) 36.7 ml/min BUN/Creatinine Ratio 11.8 (10-20) Glucose 125 H (70-99(Fasting)) mg/dl Calcium 7.5 L (8.6-10.3) mg/dl Magnesium 1.9 (1.7-2.4) mg/dl Diagnostic Findings Chest X-Ray 01/21/24 08:07 XR chest 1V portable CLINICAL HISTORY: hypoxia, leukocystosis COMPARISON STUDY: Chest radiograph August 14, 2023. FINDINGS: Lung volumes are normal. There is no pneumothorax or pleural effusion. Small left pleural effusion is present. Linear bibasilar opacities favor atelectasis. There is no consolidation to suggest pneumonia. Heart and mediastinal silhouette is unremarkable. No evidence for pulmonary edema. IMPRESSION: 1. Small left pleural effusion. 2. Bibasilar opacities suggestive of atelectasis. ACT 112: Negative or not required by law. Electronically signed by: Sam Cardona M.D. 01/21/2024 8:52 AM PG Care Time/CCT Total # of Minutes Spent Total Time Spent with Patient: Total time spent is greater than 50% in coordination of care (as documented) at patient's floor/unit and/or counseling patient: Coding Level of Care Code 91683 SUB INP/OBS CARE 3/50MIN Diagnoses Proctocolitis K52.9 Sepsis A41.9 C. difficile colitis A04.72 Hypokalemia E87.6 GINA (acute kidney injury) N17.9 Chronic kidney disease, stage III (moderate) N18.3 Hypertension I10
--- NOTE | 2024-01-21 08:54 | XRay Report ---
XR chest 1V portable CLINICAL HISTORY: hypoxia, leukocystosis COMPARISON STUDY: Chest radiograph August 14, 2023. FINDINGS: Lung volumes are normal. There is no pneumothorax or pleural effusion. Small left pleural e ffusion is present. Linear bibasilar opacities favor atelectasis. There is no consolidation to sugges t pneumonia. Heart and mediastinal silhouette is unremarkable. No evidence for pulmonary edema. IMPRESSION: 1. Small left pleural effusion. 2. Bibasilar opacities suggestive of atelectasis. ACT 112: Negative or not required by law. Electronically signed by: Sam Cardona M.D. 01/21/2024 8:52 AM
[2024-01-21] MEDS: POTASSIUM CHLORIDE CRTAB 20 MEQ TABCR PO STA (10:29)
[2024-01-21] MEDS: POTASSIUM CHLORIDE 10 MEQ in SODIUM CHLORIDE 0.9% 1,000 ML IV SCH (14:55)
[2024-01-21] MEDS: PSYLLIUM or GUAR GUM FIBER 4GM PACKET PO SCH (14:56)
--- NOTE | 2024-01-22 08:09 | Hospitalist Progress Note ---
Date of Service January 22, 2024 Assessment & Plan (1) Proctocolitis: Plan: With sepsis, POA -with leukocytosis, tachycardia, fever, with source being colitis. Lactate normal, not hypotensive Abdominal pain, bloating, nausea, and diarrhea that began on 01/15 after recent [place] hospitalization for acute diverticulitis 01/03-01/10 (recent use of rocephin, flagyl, Unasyn, and doxycycline inpatient; augmentin outpatient) A/P CT revealed nonspecific proctocolitis of the left colon; no abscess; no free intraperitoneal air PCR stool negative, but C. diff gene and toxin positive Remains with fevers and abd pain, diarrhea but appetite improving, leukocytosis improving, Blood cultures remain negative Received 3 L LR, and no further ordered however then having 6BM overnight 01/20 and 3 additional AM 01/20 and additional 1L IVF w/ Kcl ordered however ongoing diarrhea overnight Did have temp 38C last evening, nothing further WBC trending down, 18k and blood cultures remaining NGTD Did have n/v x 1 this mornig w/ pain medication but reported needing zofran w/ pain med last time and asked RN to provide KUB w/ distended loops, no obstruction/free air. Supervising provider req for metamucil added yesterday to help bulk stools, will place further on hold for now Given fever last evening, low threshold to repeat CTAP given LLQ findings but if ongoing issues/worsened pain likely will obtain ID consultation placed for assistance/input. Messaged, consult pending. ?need for repeat CTAP for now given improvement in WBC. Monitor labs/exam on repeat (2) Sepsis: Plan: as above (3) C. difficile colitis: Plan: as above (4) Hypokalemia: Plan: ongoing issues 2nd to diarrheal losses Hold lasix on hold, losartan placed on hold given GINA K 2.9 today, PO replacement ordered as well as in her IVF. Repeat labs this afternoon/electrolyte replacement as needed. Mag wnl (5) GINA (acute kidney injury): Plan: GINA on CKD, ?diarrheal losses. Was provided 3L LR on admission, holding further. Placed losartan on hold, did get dose AM 01/20 however, Cr 1.44 on AM labs and continue to hold IVF as above, lasix remains on hold Renal dose meds/avoid nephrotoxins as able BMP in AM (6) Chronic kidney disease, stage III (moderate): Plan: Renal function elevated above baseline as above. Lasix on hold on admission, did continue losartan which has been placed on hold (last dose AM 01/21 w/ BP 104/59) IVF as above, renal dose meds and avoid nephrotoxins and will continue to monitor (7) Hypertension: Plan: BPs controlled and remains on metoprolol, amlodipine Lasix on hold as above, placed losartan on hold given elevated Cr and was given this morning -- BP low normal 104/59 but no dizziness and will monitor w/ IVF Chronic problems GERD-continue PPI, on lansoprazole and appears on home med list. Prior admission w/ reported allergy to PPI/H2 but tolerating lansoprazole and no dizziness reported however was a little dizzy with getting up this morning however w/ hypokalemia/ongoing dehydration/diarrhea will continue to monitor for now Anxiety-continue ativan prn O2 sat drop w/ sleeping but no significant pulm congestion on CXR and on room air this afternoon during eval, no SOB reported. ?underlying MARIAELENA (prior ECHO w/ elevated RVSP) Overnight pulse ox w/ drops, will place order for 2L HS can continue at dc, outpt sleep study Plan VTE PPx: Heparin 5000u SQ q12h while inpatient Dispo: continued inpatient stay, ID consult pending Admission and Anticipated Discharge Date Admission Date: January 19, 2024 Supervising Physician Co-Signing Physician Notes The patient was not seen by me. The chart was reviewed. Case discussed with JAMISON Baker. Agree with assessment and plan Subjective Evaluated around lunch, feeling washed out. Reports frequency of diarrhea slowed but amount during bowel movements increased. Remains on PO Vancomycin, WBC improving. Daughter in room inquiring about potential ID consultation, can be consider for AM if ongoing issues. Did have episode of nausea/vomiting x 1 this morning after pain medications. Prior admission they gave zofran with pain meds, instructed RN to provide Oxycodone 10mg x 1 and zofran and will monitor for pain to her lower abdominal jaffe, worse on the left lower quadrant. No CP/SOB. Repeat labs for this afternoon/electrolyte replacement as needed. Questions/concerns addressed. Physical Exam Physical Exam: General: 78yo female sitting up in bed, appears more fatigued today but NAD HEENT: head atraumatic, mm DRY, trachea midline Resp: even/unlabored, slightly diminished in the bases but no w/c, on room air CV: RRR, no significant m/r/g, no pitting edema/calf tenderness GI: +BS, slightly more DISTENDED, LLQ tenderness to deep palpation, no overt guarding/rigidity MSK/Neuro: nonfocal, no slurred speech, answering questions appropriately Psych: AOx3, cooperative with exam Results & Data Results & Data Vital Signs (Past 12 Hours) Vital Signs Temp Pulse Pulse Pulse Resp BP BP 01/22/24 07:05 36.8 C 78 16 104/63 01/22/24 05:10 37.0 C 01/22/24 03:02 38.0 C H 93 H 18 116/56 L 01/22/24 01:34 87 01/21/24 23:11 37.4 C 84 18 102/57 L 01/21/24 22:25 80 01/21/24 22:20 87 Pulse Ox Pulse Ox O2 Del Method O2 Del Method O2 Flow Rate 01/22/24 07:05 91 Room Air 01/22/24 05:10 01/22/24 03:02 92 Room Air 01/22/24 01:34 91 Room Air 01/21/24 23:11 97 Nasal Cannula 2 01/21/24 22:25 92 Room Air 01/21/24 22:20 Laboratory Results 01/22/24 Range/Units 07:44 WBC 18.83 H (4.8-10.8) K/ul RBC 3.18 L (4.20-5.40) M/uL Hgb 9.1 L (12.0-16.0) g/dl Hct 27.4 L (37.0-47.0) % MCV 86.2 (80.0-100.0) fL MCH 28.6 (25.0-34.0) pg MCHC 33.2 (32.0-36.0) g/dL RDW Std Deviation 43.9 (36.4-46.3) fL RDW Coeff of Jordi 13.9 (11.5-14.5) % Plt Count 363 (130-400) K/uL MPV 10.0 (9.4-12.4) fL Immature Gran % (Auto) 0.7 % Neut % (Auto) 84.7 % Lymph % (Auto) 6.0 % [place] % (Auto) 8.1 % Eos % (Auto) 0.2 % Baso % (Auto) 0.3 % Neut # (Auto) 15.97 H (1.40-6.50) K/uL Lymph # (Auto) 1.13 L (1.20-3.40) K/uL [place] # (Auto) 1.52 H (0.11-0.59) K/uL Eos # (Auto) 0.03 (0.00-0.50) K/uL Baso # (Auto) 0.05 (0.00-0.20) K/uL Immature Gran # (Auto) 0.13 (0.01-0.20) K/uL Sodium 132 L (136-145) mmol/L Potassium 2.9 L (3.5-5.1) mmol/L Chloride 103 (98-107) mmol/L Carbon Dioxide 22 (21-32) mmol/L Anion Gap 7 (3-11) BUN 19 (6-23) mg/dl Creatinine 1.44 H (0.6-1.2) mg/dl Est Cr Clr Drug Dosing 26.9 ml/min Est GFR ( Amer) 39.7 ml/min Est GFR (Non-Af Amer) 34.2 ml/min BUN/Creatinine Ratio 13.2 (10-20) Glucose 114 H (70-99(Fasting)) mg/dl Calcium 7.6 L (8.6-10.3) mg/dl Magnesium 1.9 (1.7-2.4) mg/dl Diagnostic Findings KUB X-Ray 01/22/24 09:55 KUB CLINICAL HISTORY: Nausea and vomiting. FINDINGS: 2 AP, portable, supine abdominal radiographs are correlated with abdominal CT dated 01/19/2024. There is diffuse gaseous distention of the colon with mild wall thickening. There are also mildly distended gas-filled loops of small bowel. There is no evidence of high-grade obstruction. No evidence of intervertebral free air is seen on these supine images. Cholecystectomy clips are noted in the right upper quadrant. There are phleboliths in the pelvis. The skeletal structures are osteopenic and appear intact. There is moderate lumbosacral spondylosis. IMPRESSION: 1. There is gaseous distention of the colon which appears thick walled. This likely corresponds to a proctocolitis when correlated with the recent CT scan. 2. There is also mild gaseous distention of several small bowel loops. This may represent an associated ileus or enteritis. 3. There is no radiographic evidence of high-grade obstruction. Electronically signed by: Yang Wolfe M.D. 01/22/2024 12:01 PM PG Care Time/CCT Total # of Minutes Spent Total Time Spent with Patient: Total time spent is greater than 50% in coordination of care (as documented) at patient's floor/unit and/or counseling patient: Coding Level of Care Code 57999 SUB INP/OBS CARE 3/50MIN Diagnoses Proctocolitis K52.9 Sepsis A41.9 C. difficile colitis A04.72 Hypokalemia E87.6 GINA (acute kidney injury) N17.9 Chronic kidney disease, stage III (moderate) N18.3 Hypertension I10
[2024-01-22 08:15] LABS: Basophils # (auto) 0.05 K/uL (0.00-0.20); Basophils % (auto) 0.3 %; Eosinophils # (auto) 0.03 K/uL (0.00-0.50); Eosinophils % (auto) 0.2 %; Hematocrit (blood only) 27.4 % (37.0-47.0); Hemoglobin 9.1 g/dl (12.0-16.0); Immature Granulocytes # (auto) 0.13 K/uL (0.01-0.20); Immature Granulocytes % (auto) 0.7 %; Lymphocytes # (auto) 1.13 K/uL (1.20-3.40); Mean Corpuscular Hemoglobin 28.6 pg (25.0-34.0); Mean Corpuscular Hgb Conc 33.2 g/dL (32.0-36.0); Mean Corpuscular Volume 86.2 fL (80.0-100.0); Monocytes # (auto) 1.52 K/uL (0.11-0.59); Monocytes % (auto) 8.1 %; Neutrophils # (auto) 15.97 K/uL (1.40-6.50); Neutrophils % (auto) 84.7 %; Platelet Count 363 K/uL (130-400); RDW Coefficient of Variation 13.9 % (11.5-14.5); RDW Standard Deviation 43.9 fL (36.4-46.3); Red Blood Count 3.18 M/uL (4.20-5.40); White Blood Count 18.83 K/ul (4.8-10.8)
[2024-01-22 08:34] LABS: BUN Creatinine Ratio 13.2 (10-20); Calcium 7.6 mg/dl (8.6-10.3); Creatinine Clr Calc Pharmacy 26.9 ml/min; Est GFR (African American) 39.7 ml/min; Est GFR (Non-African American) 34.2 ml/min; Magnesium 1.9 mg/dl (1.7-2.4); Potassium 2.9 mmol/L (3.5-5.1)
[2024-01-22] MEDS: POTASSIUM CHLORIDE CRTAB 20 MEQ TABCR PO STA ×2 (09:02→17:14)
[2024-01-22] MEDS: NSS + 20MEQ KCL 20 MEQ/1,000 ML BAG IV SCH (09:47)
--- NOTE | 2024-01-22 12:02 | XRay Report ---
KUB CLINICAL HISTORY: Nausea and vomiting. FINDINGS: 2 AP, portable, supine abdominal radiographs are correlated with abdominal CT dated 01/19/20 24. There is diffuse gaseous distention of the colon with mild wall thickening. There are also mildly distended gas-filled loops of small bowel. There is no evidence of high-grade obstruction. No eviden ce of intervertebral free air is seen on these supine images. Cholecystectomy clips are noted in the right upper quadrant. There are phleboliths in the pelvis. The skeletal structures are osteopenic and appear intact. There is moderate lumbosacral spondylosis. IMPRESSION: 1. There is gaseous distention of the colon which appears thick walled. This likely corresponds to a proctocolitis when correlated with the recent CT scan. 2. There is also mild gaseous distention of several small bowel loops. This may represent an associat ed ileus or enteritis. 3. There is no radiographic evidence of high-grade obstruction. Electronically signed by: Yang Wolfe M.D. 01/22/2024 12:01 PM
[2024-01-22] MEDS: oxyCODONE HCL IR 5 MG TAB (IMMEDIATE RELEASE) PO PRN ×2 (14:38→21:28)
--- NOTE | 2024-01-22 14:42 | Infectious Disease Consult ---
Date of Consultation January 22, 2024 Assessment & Plan (1) C. difficile colitis: (2) Sepsis: (3) Proctocolitis: (4) GINA (acute kidney injury): (5) Chronic kidney disease, stage III (moderate): Plan 78yo F with h/o CKD III, GERD, fibromyalgia, diverticulitis, gallstone pancreatitis 07/2023, chronic cholecystitis s/p lap CCY, GERD, recent admission 01/03-01/10 with acute diverticulitis (tx with CTX/flagyl, abx changed to unasyn and dcd on augmentin) who presented on 01/18 with lower abdominal pain, bloating, chills, and diarrhea that started 01/15 along with fevers x 1d. Here she has been febrile. WBC 35.38>>18.83, Cr 1.19>>1.44. LFT wnl. GIPP positive for C diff gene and toxin. CTAP without IV contrast with findings c/f nonspecific proctocolitis of left colon, advanced colonic diverticulosis w/o acute diverticulitis, favor colitis, superimposed diverticulitis impossible to exclude, no fluid collection seen. CXR with bibasilar opacities suggestive of atelectasis. She was started on PO vancomycin. Course notable for fever on 01/20 and 01/21. KUB on 01/21 with gaseous distention of the colon, mild gaseous distention of several small bowel loops, may represent associated ileus or enteritis. She reported improving diarrhea frequency. Her exam by primary team on 01/21 was notable for LLQ tenderness, more distention. ID consulted 01/21. There is some question of ileus on KUB. Per primary team, patients abdominal pain is now improving this afternoon and less distended. Would monitor for any complications for C diff (ileus, shock, megacolon). Will keep her on PO vancomycin at current dose. # Severe C diff colitis # GINA rising Cr # Recent diverticulitis # CKD III - serial abdominal exams to monitor for any developing ileus or s/o fulminant C diff if so, then would repeat imaging (KUB or CTAP will avoid IV contrast given her worsening GINA), increase vancomycin to 500mg PO q6h, and consult surgery - will continue on current regimen of PO vancomycin - will see patient with telepresenter tomorrow ID will continue to follow. If questions or concerns, contact Infectious Disease Call Center . Maryam Francois MD [facility], Division of Infectious Diseases IDConnect: [phone] Consultation Information This patient recommendation is based on a telemedicine consult request which was completed asynchronously through chart review and information provided by the primary physician. The patient was not seen or examined today. The evaluation is consultative in nature and all patient care and treatment decisions can either be accepted or rejected by the patient's primary hospital-based treating physi aleja using their own independent medical judgment for their patient. Concrete Pouring Supervisor contact information: Please call ID Connect Call Center . (Phone Number For Physician Use Only) Time Spent Reviewing Chart: 31+ minutes History of Present Illness Reason for Consultation: C diff, 1st occurrence, recurrent diverticulitis, ?dificid Attending Physician: Peter Venegas MD History of Present Illness 78yo F with h/o CKD III, GERD, fibromyalgia, diverticulitis, gallstone pancreatitis 07/2023, chronic cholecystitis s/p lap CCY, GERD, recent admission 01/03-01/10 with acute diverticulitis (tx with CTX/flagyl, abx changed to unasyn and dcd on augmentin) who presented on 01/18 with abdominal pain, bloating, chills, and diarrhea that started 01/15. She had initially though her bloating was related to Metamucil, but then developed fever and chills with LLQ>RLQ abdominal pain. She reported developing a temp up to 103 on day of admission. She stopped Metamucil on 01/16 and stools became loose again. No sick contacts. Here she has been febrile. WBC 35.38>>18.83, Cr 1.19>>1.44. LFT wnl. GIPP positive for C diff gene and toxin. CTAP without IV contrast with findings c/f nonspecific proctocolitis of left colon, advanced colonic diverticulosis w/o acute diverticulitis, favor colitis, superimposed diverticulitis impossible to exclude, no fluid collection seen. CXR with bibasilar opacities suggestive of atelectasis. She was started on PO vancomycin. Course notable for fever on 01/20 and 01/21. KUB on 01/21 with gaseous distention of the colon, mild gaseous distention of several small bowel loops, may represent associated ileus or enteritis. She reported improving diarrhea frequency. Her exam by primary team on 01/21 was notable for LLQ tenderness, more distention. ID consulted 01/21. Allergies Allergy/AdvReac Type Severity Reaction Status Date / Time atropine [From ] Allergy Intermediate Hives Verified 01/04/24 17:53 cimetidine [From Tagamet] Allergy Intermediate Hives Verified 01/04/24 17:53 hyoscyamine [From ] Allergy Intermediate Hives Verified 01/04/24 17:53 Iodinated Contrast Media Allergy Intermediate Hives Verified 01/04/24 17:53 [Iodinated Contrast- Oral and IV Dye] nitrofurantoin Allergy Intermediate Rash Verified 01/04/24 17:53 [From Macrobid] phenobarbital [From ] Allergy Intermediate Hives Verified 01/04/24 17:53 regadenoson Allergy Intermediate loss of Verified 01/04/24 17:53 vision, low Blood pressure scopolamine [From ] Allergy Intermediate Hives Verified 01/04/24 17:53 ketoprofen [From Orudis] Allergy Mild Rash Verified 01/04/24 17:53 diltiazem AdvReac Intermediate Hallucinati Verified 01/04/24 17:53 ng doxepin AdvReac Intermediate Hallucinati Verified 01/04/24 17:53 ng doxycycline AdvReac Intermediate Heartburn Verified 01/04/24 17:53 duloxetine [From Cymbalta] AdvReac Intermediate Swelling Verified 01/04/24 17:53 hydrocodone AdvReac Intermediate Dizziness Verified 01/04/24 17:53 lisinopril [From Zestril] AdvReac Intermediate Swelling Verified 01/04/24 17:53 pantoprazole [From Protonix] AdvReac Intermediate Dizziness Verified 01/04/24 17:53 Home Medications Medication Instructions Recorded Confirmed Type lorazepam 0.5 mg tablet 0.5 mg PO DAILY PRN Anxiety 04/14/21 01/19/24 History metoprolol succinate 25 mg 25 mg PO BID 04/14/21 01/19/24 History tablet,extended release 24 hr acetaminophen 500 mg tablet 1,000 mg PO Q6H PRN Back Pain 04/27/21 01/19/24 History (Tylenol Extra Strength) ergocalciferol (vitamin D2) 1,250 50,000 unit PO MONTHLY 05/13/23 01/19/24 History mcg (50,000 unit) capsule losartan 100 mg tablet 100 mg PO QAM 05/13/23 01/19/24 History amlodipine 10 mg tablet 10 mg PO DAILY 08/05/23 01/19/24 History furosemide 20 mg tablet 40 mg (2 x 20 mg) PO DAILY Fluid 08/19/23 01/19/24 Rx Retention #1 tab lansoprazole 30 mg delayed 30 mg PO QPM 01/04/24 01/19/24 History release,disintegrating tablet (Prevacid SoluTab) PSYLLIUM or GUAR GUM FIBER SUP 4 g PO BID ##0 01/11/24 01/19/24 Rx [METAMUCIL or NUTRISOURCE FIBER SUPPLEMENT] amoxicillin 875 mg-potassium 1 tab PO BID #20 tabs 01/11/24 01/19/24 Rx clavulanate 125 mg tablet oxycodone 5 mg tablet 5 mg PO Q6H PRN pain #20 tabs 01/11/24 01/19/24 Rx Patient History Medical History Hx of cardiac murmur has had since age 3, "it comes and goes"; f/u dr. augustine, [facility] Scleroderma Diverticulitis hx Peripheral vascular disease Depression Fibromyalgia GERD (gastroesophageal reflux disease) Spinal stenosis Anxiety "has white coat syndrome and blood pressure can get really high" Secondary hyperparathyroidism Positive NAREN (antinuclear antibody) Hyperkalemia Hypercalcemia Anemia HX Hypertension Surgical History History of left cataract extraction History of dilatation and curettage History of esophagogastroduodenoscopy (EGD) History of breast biopsy RIGHT BENIGN History of hysterectomy History of appendectomy History of tonsillectomy H/O colonoscopy Family History Other No known health problems Social History Smoking Status: Never smoker Second Hand Exposure: No; Do You Dip or Chew Tobacco: No; Hx Alcohol Use: No Hx Substance Use: No Preferred Language: Georgian Communication Ability: Effective Electrical Cad Technician Required: No Beliefs That Will Affect Care: None Current Living Situation: Spouse current occupational status: retired Feels Safe at Home: Yes Assistive Devices: Brace/Splint/Immobilizer, Cane and Walker Results & Data Vital Signs (Past 12 Hours) Vital Signs Temp Pulse Resp BP BP Pulse Ox O2 Del Method 01/22/24 11:08 36.9 C 83 16 110/62 94 Room Air 01/22/24 07:05 36.8 C 78 16 104/63 91 Room Air 01/22/24 05:10 37.0 C 01/22/24 03:02 38.0 C H 93 H 18 116/56 L 92 Room Air Laboratory Results Labs reviewed. Diagnostic Findings Imaging reviewed. (5) Chronic kidney disease, stage III (moderate) Chronic kidney disease stage 3 subtype: unspecified whether 3a or 3b Qualified Code(s): N18.30 - Chronic kidney disease, stage 3 unspecified
[2024-01-22 16:00] LABS: Calcium 7.8 mg/dl (8.6-10.3); Creatinine Clr Calc Pharmacy 29.1 ml/min; Est GFR (African American) 43.6 ml/min; Est GFR (Non-African American) 37.7 ml/min; Potassium 3.5 mmol/L (3.5-5.1)
[2024-01-22] MEDS: MAGNESIUM SULFATE / D5W 1 GM/100 ML BAG IV ONE (17:14)
[2024-01-22] MEDS: SODIUM CHLORIDE 1 GM TABLET PO ONE (18:03)
--- NOTE | 2024-01-23 08:08 | Hospitalist Progress Note ---
Date of Service January 23, 2024 Assessment & Plan (1) Proctocolitis: Plan: With sepsis, POA -with leukocytosis, tachycardia, fever, with source being colitis. Lactate normal, not hypotensive Abdominal pain, bloating, nausea, and diarrhea that began on 01/15 after recent [place] hospitalization for acute diverticulitis 01/03-01/10 (recent use of rocephin, flagyl, Unasyn, and doxycycline inpatient; augmentin outpatient) A/P CT revealed nonspecific proctocolitis of the left colon; no abscess; no free intraperitoneal air PCR stool negative, but C. diff gene and toxin positive Remains with fevers and abd pain, diarrhea but appetite improving, leukocytosis improving, Blood cultures remain negative Received 3 L LR, additional 1L ordered 01/20 and 01/21 for diarrheal losses Temp 38C 01/20, 01/21, blood cultures remain NGTD and WBC trending down, currently 12k IVF w/ NaHCO3 today for diarrheal losses KUB w/ distension of loops, possible ileus but is moving her bowels. No further vomiting today Discussed w/ ID and Vancomycin increased to 500mg Q6H for now, serial exams, no need for CTAP at this time but will continue to monitor. Trial NPO for bowel rest and continue IVF for today, can do some clears if arlyn red Low threshold to consult general surgery. Monitor KUB/exam/labs on repeat (2) Sepsis: Plan: as above, WBC improving but low threshold to repeat CTAp if any further fever. ID consulted/Vanco increased as above (3) C. difficile colitis: Plan: as above (4) Hypokalemia: Plan: ongoing issues 2nd to diarrheal losses K 3.4, additional PO ordered, Mag 2.1 Monitor (5) GINA (acute kidney injury): Plan: GINA on CKD, ?diarrheal losses. Was provided 3L LR on admission, holding further. Placed losartan on hold, did get dose AM 01/20 however, Cr 1.44 on AM IVF as above, BUN/Cr improved 16/1.13 and continues IVF for now Renal dose meds/avoid nephrotoxins as able and monitor (6) Chronic kidney disease, stage III (moderate): Plan: Renal function elevated above baseline as above. Lasix on hold on admission, did continue losartan which has been placed on hold (last dose AM 01/21 w/ BP 104/59) IVF as above, renal dose meds and avoid nephrotoxins and will continue to monitor (7) Hypertension: Plan: BPs controlled and remains on metoprolol, amlodipine Lasix on hold as above, placed losartan on hold given elevated Cr and was given this morning -- BP low normal 104/59 but no dizziness and will monitor w/ IVF Chronic problems GERD-continue PPI, on lansoprazole and appears on home med list. --Prior admission w/ reported allergy to PPI/H2 but tolerating lansoprazole and no dizziness reported however was a little dizzy with getting up AM 01/21 and placed on hold for now Anxiety-continue ativan prn O2 sat drop w/ sleeping but no significant pulm congestion on CXR and on room air this afternoon during eval, no SOB reported. ?underlying MARIAELENA (prior ECHO w/ elevated RVSP) Overnight pulse ox w/ drops, will place order for 2L HS can continue at dc, outpt sleep study Plan VTE PPx: Heparin 5000u SQ q12h while inpatient Updated daughter and at bedside 01/22 Dispo: continued inpatient stay, Vancomycin dosing increased Admission and Anticipated Discharge Date Admission Date: January 19, 2024 Supervising Physician Co-Signing Physician Notes The patient was not seen by me. The chart was reviewed. Case discussed with JAMISON Baker. Agree with assessment and plan Subjective Eval this morning, daughter and in room. Did have additional bowel movement overnight/this morning, less frequent. Does have increased distension/discomfort today and KUB appears much unchanged. She reports seeing ID provider this morning w/ nurse and reports about possible increasing Vanco but waiting another day about adding an additional agent. Discussed note not yet in but will message ID for discussion. No further fevers, WBC improving and blood cultures negative. Added IVF w/ bicarb for labs/diarrheal losses x 1L for today and will continue to monitor. Renal function improved on AM labs. Pain controlled w/ oxycodone 5mg x 1 this morning w/ zofran. Questions/conerns addressed at this time. Physical Exam Physical Exam: General: 78yo female sitting up in bed, fatigued appearing, daughter/ in room HEENT: head atraumatic, mm slightly dry/improved though, trachea midline Resp: even/unlabored, slightly diminished in the bases but no w/c, on room air CV: RRR, no significant m/r/g, no pitting edema/calf tenderness GI: +BS, slightly more DISTENDED, LLQ tenderness to deep palpation similar to yesterday morning (improved last evening), no overt guarding/rigidity MSK/Neuro: nonfocal, no slurred speech, answering questions appropriately Psych: AOx3, cooperative with exam Results & Data Results & Data Vital Signs (Past 12 Hours) Vital Signs Temp Pulse Pulse Resp BP Pulse Ox O2 Del Method 01/23/24 07:23 Room Air 01/23/24 07:05 80 01/23/24 03:47 36.8 C 83 14 104/61 91 Room Air 01/22/24 22:00 82 01/22/24 22:00 36.7 C 84 16 110/69 97 Room Air 01/22/24 20:24 36.3 C L 91 H 16 103/56 L 91 Room Air Laboratory Results 01/23/24 01/22/24 Range/Units 07:57 14:59 WBC 12.94 H (4.8-10.8) K/ul RBC 3.56 L (4.20-5.40) M/uL Hgb 10.1 L (12.0-16.0) g/dl Hct 31.4 L (37.0-47.0) % MCV 88.2 (80.0-100.0) fL MCH 28.4 (25.0-34.0) pg MCHC 32.2 (32.0-36.0) g/dL RDW Std Deviation 46.5 H (36.4-46.3) fL RDW Coeff of Jordi 14.4 (11.5-14.5) % Plt Count 408 H (130-400) K/uL MPV 10.7 (9.4-12.4) fL Immature Gran % (Auto) 0.6 % Neut % (Auto) 77.9 % Lymph % (Auto) 11.1 % [place] % (Auto) 9.4 % Eos % (Auto) 0.6 % Baso % (Auto) 0.4 % Neut # (Auto) 10.07 H (1.40-6.50) K/uL Lymph # (Auto) 1.44 (1.20-3.40) K/uL [place] # (Auto) 1.22 H (0.11-0.59) K/uL Eos # (Auto) 0.08 (0.00-0.50) K/uL Baso # (Auto) 0.05 (0.00-0.20) K/uL Immature Gran # (Auto) 0.08 (0.01-0.20) K/uL Sodium 133 L 131 L (136-145) mmol/L Potassium 3.4 L 3.5 D (3.5-5.1) mmol/L Chloride 106 102 (98-107) mmol/L Carbon Dioxide 20 L 23 (21-32) mmol/L Anion Gap 7 6 (3-11) BUN 16 20 (6-23) mg/dl Creatinine 1.13 1.33 H (0.6-1.2) mg/dl Est Cr Clr Drug Dosing 34.3 29.1 ml/min Est GFR ( Amer) 53.2 43.6 ml/min Est GFR (Non-Af Amer) 45.9 37.7 ml/min BUN/Creatinine Ratio 14.2 15.0 (10-20) Glucose 102 H 151 H (70-99(Fasting)) mg/dl Calcium 7.8 L 7.8 L (8.6-10.3) mg/dl Magnesium 2.1 (1.7-2.4) mg/dl Total Bilirubin 0.3 (0.2-1.0) mg/dl AST 9 L (13-39) U/L ALT 6 L (7-52) U/L Alkaline Phosphatase 59 (34-104) U/L Total Protein 5.5 L (6.0-8.3) gm/dl Albumin 2.7 L (3.4-5.0) gm/dl Globulin 2.8 (2.5-4.0) gm/dl Albumin/Globulin Ratio 1.0 (0.9-2) Diagnostic Findings KUB X-Ray 01/23/24 07:00 KUB CLINICAL HISTORY: Nausea and vomiting. FINDINGS: 2 AP, portable, supine abdominal radiographs are compared to study dated 01/22/2024 and correlated with abdominal CT dated 01/19/2024. Again seen is diffuse gaseous distention of the colon with mild wall thickening. There are also mildly distended gas-filled loops of small bowel. There is no evidence of high-grade obstruction. No evidence of intervertebral free air is seen on these supine images. Cholecystectomy clips are noted in the right upper quadrant. There are phleboliths in the pelvis. The skeletal structures are osteopenic and appear intact. There is moderate lumbosacral spondylosis. Small pleural effusions are suggested at the lung bases. IMPRESSION: 1. There is gaseous distention of the colon which appears thick walled. This likely corresponds to a proctocolitis when correlated with the recent CT scan. This is unchanged from yesterday's x-ray. 2. There is also mild gaseous distention of several small bowel loops. This may represent an associated ileus or enteritis. 3. There is no radiographic evidence of high-grade small bowel obstruction. Electronically signed by: Yang Wolfe M.D. 01/23/2024 8:12 AM PG Care Time/CCT Total # of Minutes Spent Total Time Spent with Patient: Total time spent is greater than 50% in coordination of care (as documented) at patient's floor/unit and/or counseling patient: Coding Level of Care Code 83809 SUB INP/OBS CARE 3/50MIN Diagnoses Proctocolitis K52.9 Sepsis A41.9 C. difficile colitis A04.72 Hypokalemia E87.6 GINA (acute kidney injury) N17.9 Chronic kidney disease, stage III (moderate) N18.3 Hypertension I10
--- NOTE | 2024-01-23 08:13 | XRay Report ---
KUB CLINICAL HISTORY: Nausea and vomiting. FINDINGS: 2 AP, portable, supine abdominal radiographs are compared to study dated 01/22/2024 and min elated with abdominal CT dated 01/19/2024. Again seen is diffuse gaseous distention of the colon with mild wall thickening. There are also mildly distended gas-filled loops of small bowel. There is no ev idence of high-grade obstruction. No evidence of intervertebral free air is seen on these supine imag es. Cholecystectomy clips are noted in the right upper quadrant. There are phleboliths in the pelvis. The skeletal structures are osteopenic and appear intact. There is moderate lumbosacral spondylosis. Small pleural effusions are suggested at the lung bases. IMPRESSION: 1. There is gaseous distention of the colon which appears thick walled. This likely corresponds to a proctocolitis when correlated with the recent CT scan. This is unchanged from yesterday's x-ray. 2. There is also mild gaseous distention of several small bowel loops. This may represent an associat ed ileus or enteritis. 3. There is no radiographic evidence of high-grade small bowel obstruction. Electronically signed by: Yang Wolfe M.D. 01/23/2024 8:12 AM
[2024-01-23 09:01] LABS: Basophils # (auto) 0.05 K/uL (0.00-0.20); Basophils % (auto) 0.4 %; Eosinophils # (auto) 0.08 K/uL (0.00-0.50); Eosinophils % (auto) 0.6 %; Hematocrit (blood only) 31.4 % (37.0-47.0); Hemoglobin 10.1 g/dl (12.0-16.0); Immature Granulocytes # (auto) 0.08 K/uL (0.01-0.20); Immature Granulocytes % (auto) 0.6 %; Lymphocytes # (auto) 1.44 K/uL (1.20-3.40); Lymphocytes % (auto) 11.1 %; Mean Corpuscular Hemoglobin 28.4 pg (25.0-34.0); Mean Corpuscular Hgb Conc 32.2 g/dL (32.0-36.0); Mean Corpuscular Volume 88.2 fL (80.0-100.0); Mean Platelet Volume 10.7 fL (9.4-12.4); Monocytes # (auto) 1.22 K/uL (0.11-0.59); Monocytes % (auto) 9.4 %; Neutrophils # (auto) 10.07 K/uL (1.40-6.50); Neutrophils % (auto) 77.9 %; Platelet Count 408 K/uL (130-400); RDW Coefficient of Variation 14.4 % (11.5-14.5); RDW Standard Deviation 46.5 fL (36.4-46.3); Red Blood Count 3.56 M/uL (4.20-5.40); White Blood Count 12.94 K/ul (4.8-10.8)
[2024-01-23 09:18] LABS: Albumin Level 2.7 gm/dl (3.4-5.0); BUN Creatinine Ratio 14.2 (10-20); Bilirubin,Total 0.3 mg/dl (0.2-1.0); Calcium 7.8 mg/dl (8.6-10.3); Creatinine Clr Calc Pharmacy 34.3 ml/min; Est GFR (African American) 53.2 ml/min; Est GFR (Non-African American) 45.9 ml/min; Globulin 2.8 gm/dl (2.5-4.0); Magnesium 2.1 mg/dl (1.7-2.4); Potassium 3.4 mmol/L (3.5-5.1); Total Protein 5.5 gm/dl (6.0-8.3)
--- NOTE | 2024-01-23 10:17 | Infectious Disease Progress Nt ---
Date of Service January 23, 2024 Assessment & Plan (1) C. difficile colitis: (2) Sepsis: (3) Proctocolitis: (4) GINA (acute kidney injury): (5) Chronic kidney disease, stage III (moderate): Plan 78yo F with h/o CKD III, GERD, fibromyalgia, diverticulitis, gallstone pancreatitis 07/2023, chronic cholecystitis s/p lap CCY, GERD, recent admission 01/03-01/10 with acute diverticulitis (tx with CTX/flagyl, abx changed to unasyn and dcd on augmentin) who presented on 01/18 with lower abdominal pain, bloating, chills, and diarrhea that started 01/15 along with fevers x 1d. Here she has been febrile. WBC 35.38>>18.83, Cr 1.19>>1.44. LFT wnl. GIPP positive for C diff gene and toxin. CTAP without IV contrast with findings c/f nonspecific proctocolitis of left colon, advanced colonic diverticulosis w/o acute diverticulitis, favor colitis, superimposed diverticulitis impossible to exclude, no fluid collection seen. CXR with bibasilar opacities suggestive of atelectasis. She was started on PO vancomycin. Course notable for fever on 01/20 and 01/21. KUB on 01/21 with gaseous distention of the colon, mild gaseous distention of several small bowel loops, may represent associated ileus or enteritis. She reported improving diarrhea frequency. Her exam by primary team on 01/21 was notable for LLQ tenderness, more distention. ID consulted 01/21. Per primary team, abdomen is more distended today. Patient is diffusely tender. Given concerns for ileus on imaging (vs enteritis) and clinical exam, Im going to go ahead and increase vancomycin to 500mg to be safe, though she is still making stools. Would continue to monitor closely with low threshold to consult surgery if any worsening. # C diff colitis - ?associated ileus # GINA # Recent diverticulitis # CKD III - serial abdominal exams to monitor for any clinical worsening - Nayeli increased vancomycin to 500mg PO q6h for now to be safe - low threshold to consult surgery if there is any worsening of her abdominal exam with c/f ileus/megacolon ID will continue to follow. If questions or concerns, contact Infectious Disease Call Center . Maryam Francois MD [facility], Division of Infectious Diseases [facility]: [phone] Admission and Anticipated Discharge Date Admission Date: January 19, 2024 Subjective Subsequent visit was provided via telemedicine using two-way real-time interactive telecommunication between the patient and the telemedicine provider. For the duration of the visit, the provider was performing the assessment from a different facility than the patient. This includesuse of bluetooth stethoscope forauscultationperformed by the telepresenter that the telemedicine provider can hear if described in the physical exam. Shake Table Operator contact information: Please call ID Connect Call Center . (Phone Number For Physician Use Only) After establishing a telemedicine visit, patient was: Patient was verified with two unique identifiers, Patient/authorized rep acknowledged consent and understanding and Gave permission to continue telehealth session Time Spent with Patient: Subsequent => 55 min Patient reports having nausea and discomfort with PO intake. She notes diffuse abdominal pain that is worse in left lower quadrant along with distention. She is having 6-7 BMs per day, which is unchanged. She does note that the abdominal pain is similar to before along with the bloating. Physical Exam Physical Exam: General: Awake, alert, no acute distress HEENT: NC/AT, EOMI, mmm Neck: supple, Lungs: respirations non-labored Heart: nl peripheral perfusion Abdomen: soft, distended, diffusely tender, worse in LLQ Ext: no LE edema Neuro: moving all extremities Results & Data Vital Signs (Past 12 Hours) Vital Signs Temp Pulse Pulse Resp BP Pulse Ox O2 Del Method 01/23/24 08:24 36.7 C 82 17 114/61 90 Room Air 01/23/24 07:23 Room Air 01/23/24 07:05 80 01/23/24 03:47 36.8 C 83 14 104/61 91 Room Air Laboratory Results Labs reviewed. Diagnostic Findings Imaging reviewed. (5) Chronic kidney disease, stage III (moderate) Chronic kidney disease stage 3 subtype: unspecified whether 3a or 3b Qualified Code(s): N18.30 - Chronic kidney disease, stage 3 unspecified
[2024-01-23] MEDS: CHERRY SYRUP 5 ML UDP PO SCH (11:00)
[2024-01-23] MEDS: D5W IV SCH (11:02)
[2024-01-23] MEDS: [UNRECOGNIZED DRUG - OTHER] IV SCH (11:02)
[2024-01-23] MEDS: SODIUM BICARBONATE IV SCH (11:02)
[2024-01-23] MEDS: VANCOMYCIN HCL 500 MG/10 ML SOLN PO SCH (13:00)
[2024-01-24 08:01] LABS: Basophils # (auto) 0.04 K/uL (0.00-0.20); Basophils % (auto) 0.6 %; Eosinophils # (auto) 0.13 K/uL (0.00-0.50); Eosinophils % (auto) 1.9 %; Hematocrit (blood only) 30.1 % (37.0-47.0); Hemoglobin 9.9 g/dl (12.0-16.0); Immature Granulocytes # (auto) 0.12 K/uL (0.01-0.20); Immature Granulocytes % (auto) 1.8 %; Lymphocytes # (auto) 1.38 K/uL (1.20-3.40); Lymphocytes % (auto) 20.2 %; Mean Corpuscular Hemoglobin 28.4 pg (25.0-34.0); Mean Corpuscular Hgb Conc 32.9 g/dL (32.0-36.0); Mean Corpuscular Volume 86.2 fL (80.0-100.0); Mean Platelet Volume 9.5 fL (9.4-12.4); Monocytes # (auto) 0.87 K/uL (0.11-0.59); Monocytes % (auto) 12.8 %; Neutrophils # (auto) 4.28 K/uL (1.40-6.50); Neutrophils % (auto) 62.7 %; Platelet Count 375 K/uL (130-400); RDW Coefficient of Variation 14.4 % (11.5-14.5); RDW Standard Deviation 44.7 fL (36.4-46.3); Red Blood Count 3.49 M/uL (4.20-5.40); White Blood Count 6.82 K/ul (4.8-10.8)
--- NOTE | 2024-01-24 08:01 | Hospitalist Progress Note ---
Date of Service January 24, 2024 Assessment & Plan (1) Proctocolitis: Plan: With sepsis, POA -with leukocytosis, tachycardia, fever, with source being colitis. Lactate normal, not hypotensive Abdominal pain, bloating, nausea, and diarrhea that began on 01/15 after recent [place] hospitalization for acute diverticulitis 01/03-01/10 (recent use of rocephin, flagyl, Unasyn, and doxycycline inpatient; augmentin outpatient) A/P CT revealed nonspecific proctocolitis of the left colon; no abscess; no free intraperitoneal air PCR stool negative, but C. diff gene and toxin positive 3L IVF on admission, continued as below w/ NaHCO3 for acidosis on labs w/ improvement and transition back to LR Temp 38C 01/21, blood cultures remained NGTD. ID consulted given ongoing issues/KUB findings, increased Vancomycin to 500mg Q6H on 01/22 w/ improvement WBC NORMALIZED on AM labs, did back diet down to NPO x meds/sips and can try some clear if wanting. Has been moving her bowels, doubt obstruction. +BM this morning and again after I saw her and will monitor. Electrolyte stable/improved and renal function back to baseline. Consideration for repeat CTAP however ALLERGY to contrast and reported last tech in [place] when had contrast said would "never give again". Does not appear had been pre-medicated and if needed could attempt but given moving bowels and WBC normalized without further fevers would do w/ oral for eval obstruction (but again, moving bowels, doubt obstruction) vs w/ IV for eval abscess and again WBC normalized/no further fevers but does have LLQ/distension and recent diverticulitis and low threshold to consult surgery/persue CTAP w/ pre- medication attempt if needed (2) Sepsis: Plan: as above, WBC normalized/no further fevers and blood cultures remain NGTD. ID consulted as above and remains on INCREASED VANCOMYCIN 500mg Q6H for today w/ consideration to back to 125mg tomorrow pending repeat eval/exam/labs (3) C. difficile colitis: Plan: as above, continue inc Vanco dosing (4) Hypokalemia: Plan: ongoing issues 2nd to diarrheal losses w/ less diarrhea/more formed of stools and K 3.5 on AM labs. Additional 20meq x 1 to keep stores replete. Mag 1.8 and additional 1gm IV ordered and will monitor labs in AM (5) GINA (acute kidney injury): Plan: RESOLVED GINA on CKD, ?diarrheal losses. IVF x 3L on admission, continued as above while NPO/bowel rest and moving bowels BUN/Cr 10/0.97 on AM labs and will monitor. Renal dose/avoid toxins as able BMP in AM (6) Chronic kidney disease, stage III (moderate): Plan: Renal function elevated above baseline as above. Lasix on hold on admission, did continue losartan which has been placed on hold (last dose AM 01/21 w/ BP 104/59) IVF as above, renal dose meds and avoid nephrotoxins and will continue to monitor (7) Hypertension: Plan: BPs controlled and remains on metoprolol, amlodipine Lasix on hold as above as well as losartan and GINA now resolved but will continue to hold losartan given borderline BP/above and monitor to resume if remains stable renal function Chronic problems GERD-continue PPI, on lansoprazole and appears on home med list. --Prior admission w/ reported allergy to PPI/H2 but tolerating lansoprazole and no dizziness reported however was a little dizzy with getting up AM 01/21 and placed on hold for now and no further episodes reported Anxiety-continue ativan prn O2 sat drop w/ sleeping but no significant pulm congestion on CXR and on room air this afternoon during eval, no SOB reported. ?underlying MARIAELENA (prior ECHO w/ elevated RVSP) Overnight pulse ox w/ drops, will place order for 2L HS can continue at dc, outpt sleep study Plan VTE PPx: Heparin 5000u SQ q12h while inpatient Updated daughter and at bedside 01/23 Dispo: continued inpatient stay, Vancomycin dosing increased for now. Monitor for need for CTAP if worsened WBC/fever/pain on exam Admission and Anticipated Discharge Date Admission Date: January 19, 2024 Supervising Physician Co-Signing Physician Notes The patient was not seen by me. The chart was reviewed. Case discussed with JAMISON Baker. Agree with assessment and plan Subjective Evaluated this morning, resting in bed. Ongoing distension but continues to move her bowels. Needing to have bowel movement at time of entry. Discussed increased Vanco and WBC normalized today, no further fevers. Consideration for CTAP w/ contrast discussed however prior tech in [place] per patient reports such severe hives reaction she would never give contrast again but hasn't attempted pre-medication and if needing/worsened at all tomorrow will consider/attempt and also surgery consult if needed. Discussed continued bowel rest for now, will downgrade off telemetry as had some right sided discomfort but in site of tele pack and resolved w/ moving and wires. Physical Exam Physical Exam: General: 78yo female sitting up in bed, appears slightly improved but fatigued appearing HEENT: head atraumatic, mm slightly dry/improved though, trachea midline Resp: even/unlabored, slightly diminished in the bases but no w/c, on room air CV: RRR, no significant m/r/g, no pitting edema/calf tenderness GI: +BS/slightly hypoactive LUQ, soft, +distension (slightly decreased from day prior), +LLQ tenderness, slightly improved but no overt guarding/rigidity or peritoneal signs MSK/Neuro: nonfocal, no slurred speech, answering questions appropriately Psych: AOx3, cooperative with exam Results & Data Results & Data Vital Signs (Past 12 Hours) Vital Signs Temp Pulse Pulse Resp BP BP Pulse Ox 01/24/24 07:29 71 01/24/24 03:40 36.4 C L 73 18 105/61 92 01/23/24 22:52 36.6 C 80 18 115/54 L 92 01/23/24 22:00 82 01/23/24 20:05 01/23/24 20:01 86 121/56 L 92 O2 Del Method 01/24/24 07:29 01/24/24 03:40 Room Air 01/23/24 22:52 Room Air 01/23/24 22:00 01/23/24 20:05 Room Air 01/23/24 20:01 Room Air Laboratory Results 01/24/24 Range/Units 07:34 WBC 6.82 (4.8-10.8) K/ul RBC 3.49 L (4.20-5.40) M/uL Hgb 9.9 L (12.0-16.0) g/dl Hct 30.1 L (37.0-47.0) % MCV 86.2 (80.0-100.0) fL MCH 28.4 (25.0-34.0) pg MCHC 32.9 (32.0-36.0) g/dL RDW Std Deviation 44.7 (36.4-46.3) fL RDW Coeff of Jordi 14.4 (11.5-14.5) % Plt Count 375 (130-400) K/uL MPV 9.5 (9.4-12.4) fL Immature Gran % (Auto) 1.8 % Neut % (Auto) 62.7 % Lymph % (Auto) 20.2 % Edmonson % (Auto) 12.8 % Eos % (Auto) 1.9 % Baso % (Auto) 0.6 % Neut # (Auto) 4.28 (1.40-6.50) K/uL Lymph # (Auto) 1.38 (1.20-3.40) K/uL Edmonson # (Auto) 0.87 H (0.11-0.59) K/uL Eos # (Auto) 0.13 (0.00-0.50) K/uL Baso # (Auto) 0.04 (0.00-0.20) K/uL Immature Gran # (Auto) 0.12 (0.01-0.20) K/uL Sodium 135 L (136-145) mmol/L Potassium 3.5 (3.5-5.1) mmol/L Chloride 107 (98-107) mmol/L Carbon Dioxide 24 (21-32) mmol/L Anion Gap 4 (3-11) BUN 10 (6-23) mg/dl Creatinine 0.97 (0.6-1.2) mg/dl Est Cr Clr Drug Dosing 39.9 ml/min Est GFR ( Amer) 63.9 ml/min Est GFR (Non-Af Amer) 55.2 ml/min BUN/Creatinine Ratio 10.3 (10-20) Glucose 110 H (70-99(Fasting)) mg/dl Calcium 7.7 L (8.6-10.3) mg/dl Magnesium 1.8 (1.7-2.4) mg/dl Total Bilirubin 0.2 (0.2-1.0) mg/dl AST 9 L (13-39) U/L ALT 6 L (7-52) U/L Alkaline Phosphatase 43 (34-104) U/L Total Protein 4.9 L (6.0-8.3) gm/dl Albumin 2.4 L (3.4-5.0) gm/dl Globulin 2.5 (2.5-4.0) gm/dl Albumin/Globulin Ratio 1.0 (0.9-2) PG Care Time/CCT Total # of Minutes Spent Total Time Spent with Patient: Total time spent is greater than 50% in coordination of care (as documented) at patient's floor/unit and/or counseling patient: Coding Level of Care Code 11701 SUB INP/OBS CARE 3/50MIN Diagnoses Proctocolitis K52.9 Sepsis A41.9 C. difficile colitis A04.72 Hypokalemia E87.6 GINA (acute kidney injury) N17.9 Chronic kidney disease, stage III (moderate) N18.3 Hypertension I10
[2024-01-24 08:13] LABS: Albumin Level 2.4 gm/dl (3.4-5.0); BUN Creatinine Ratio 10.3 (10-20); Bilirubin,Total 0.2 mg/dl (0.2-1.0); Calcium 7.7 mg/dl (8.6-10.3); Creatinine Clr Calc Pharmacy 39.9 ml/min; Est GFR (African American) 63.9 ml/min; Est GFR (Non-African American) 55.2 ml/min; Globulin 2.5 gm/dl (2.5-4.0); Magnesium 1.8 mg/dl (1.7-2.4); Potassium 3.5 mmol/L (3.5-5.1); Total Protein 4.9 gm/dl (6.0-8.3)
[2024-01-24] MEDS: LACTATED RINGER'S 1,000 ML IV SCH (08:16)
--- NOTE | 2024-01-24 09:59 | Infectious Disease Progress Nt ---
Date of Service January 24, 2024 Assessment & Plan (1) C. difficile colitis: (2) Sepsis: (3) Proctocolitis: (4) GINA (acute kidney injury): (5) Chronic kidney disease, stage III (moderate): Plan 78yo F with h/o CKD III, GERD, fibromyalgia, diverticulitis, gallstone pancreatitis 07/2023, chronic cholecystitis s/p lap CCY, GERD, recent admission 01/03-01/10 with acute diverticulitis (tx with CTX/flagyl, abx changed to unasyn and dcd on augmentin) who presented on 01/18 with lower abdominal pain, bloating, chills, and diarrhea that started 01/15 along with fevers x 1d. Here she has been febrile. WBC 35.38>>18.83, Cr 1.19>>1.44. LFT wnl. GIPP positive for C diff gene and toxin. CTAP without IV contrast with findings c/f nonspecific proctocolitis of left colon, advanced colonic diverticulosis w/o acute diverticulitis, favor colitis, superimposed diverticulitis impossible to exclude, no fluid collection seen. CXR with bibasilar opacities suggestive of atelectasis. She was started on PO vancomycin. Course notable for fever on 01/20 and 01/21. KUB on 01/21 with gaseous distention of the colon, mild gaseous distention of several small bowel loops, may represent associated ileus or enteritis. She reported improving diarrhea frequency. Her exam by primary team on 01/21 was notable for LLQ tenderness, more distention. ID consulted 01/21. PO vanc increased to 500mg dose given developing ileus. WBC now downtrending as is Cr. Labs improving but still with abdominal pain/distention. Will keep on higher dose of vancomycin today. If over the weekend, she is improving clinically, can decrease dose back down to 125mg. However, if any worsening, may consider repeating CTAP. Apparently she has had an allergy to IV dye and was told never to get it again. # C diff colitis - ?associated ileus, initial episode # GINA - improving # Recent diverticulitis # CKD III - continue vancomycin to 500mg PO q6h for now - monitor clinically - if clinically improving, would change vancomycin back to 125mg PO q6h over the weekend - if any worsening, then may consider repeating CTAP ID will continue to follow. If questions or concerns, contact Infectious Disease Call Center . Maryam Francois MD [facility], Division of Infectious Diseases [facility]: [phone] Admission and Anticipated Discharge Date Admission Date: January 19, 2024 Subjective Subsequent visit was provided via telemedicine using two-way real-time interactive telecommunication between the patient and the telemedicine provider. For the duration of the visit, the provider was performing the assessment from a different facility than the patient. This includesuse of bluetooth stethoscope forauscultationperformed by the telepresenter that the telemedicine provider can hear if described in the physical exam. Claims Director contact information: Please call [facility] Call Center [phone]. (Phone Number For Physician Use Only) After establishing a telemedicine visit, patient was: Patient was verified with two unique identifiers, Patient/authorized rep acknowledged consent and understanding and Gave permission to continue telehealth session Time Spent with Patient: Subsequent => 55 min Patient notes unchanged abdominal pain. But does have improvement of the diarrhea. Only 2 today, had 1 last night. She does get some nausea with PO intake. Physical Exam Physical Exam: General: Awake, alert, no acute distress HEENT: NC/AT, EOMI, mmm Neck: supple, Lungs: respirations non-labored Heart: nl peripheral perfusion Abdomen: soft, distended, diffusely tender, worse in LLQ Ext: no LE edema Neuro: moving all extremities Results & Data Vital Signs (Past 12 Hours) Vital Signs Temp Pulse Pulse Resp BP BP Pulse Ox 01/24/24 08:08 37 C 89 17 117/63 91 01/24/24 07:29 71 01/24/24 03:40 36.4 C L 73 18 105/61 92 01/23/24 22:52 36.6 C 80 18 115/54 L 92 01/23/24 22:00 82 O2 Del Method 01/24/24 08:08 Room Air 01/24/24 07:29 01/24/24 03:40 Room Air 01/23/24 22:52 Room Air 01/23/24 22:00 Laboratory Results Labs reviewed. Diagnostic Findings Imaging reviewed. (5) Chronic kidney disease, stage III (moderate) Chronic kidney disease stage 3 subtype: unspecified whether 3a or 3b Qualified Code(s): N18.30 - Chronic kidney disease, stage 3 unspecified
[2024-01-24] MEDS: POTASSIUM CHLORIDE CRTAB 20 MEQ TABCR PO STA ×2 (10:30→18:24)
--- NOTE | 2024-01-24 10:48 | XRay Report ---
KUB CLINICAL HISTORY: follow up COMPARISON STUDY: CT of the abdomen and pelvis January 19, 2024. KUB January 23, 2024. FINDINGS: Cholecystectomy clips are present. Evidence for left colon wall thickening is again noted. There is no radiographic evidence for a bowel obstruction. No evidence for free air on supine exam. IMPRESSION: 1. No radiographic evidence for a bowel obstruction. 2. Evidence for left colon wall thickening consistent with a nonspecific colitis, as shown on prior C T. ACT 112: Negative or not required by law. Electronically signed by: Sam Cardona M.D. 01/24/2024 10:47 AM
[2024-01-24] MEDS: MAGNESIUM SULFATE / D5W 1 GM/100 ML BAG IV ONE (12:58)
[2024-01-24] MEDS: FUROSEMIDE INJ 20 MG/2 ML VIAL IV ONE ×2 (18:11→18:25)
--- NOTE | 2024-01-24 19:41 | XRay Report ---
XR chest 1V portable CLINICAL HISTORY: eval atelectasis/pulm edema TECHNIQUE: Single frontal radiograph of the chest was obtained. Comparison: Comparison is made to chest radiograph 01/21/2024 FINDINGS: No lines and tubes are seen. Calcified aortic knob is seen. Left lower lung airspace opacity is seen. Small left pleural effusion. IMPRESSION: Small left pleural effusion. No evidence of pulmonary edema. ACT 112: Negative or not required by law. Electronically signed by: Gianluca Jones M.D. 01/24/2024 7:39 PM
[2024-01-24] MEDS: DICLOFENAC SOD 1% GEL 100 GM TUBE EXT SCH (21:12)
[2024-01-25 06:28] LABS: Hematocrit (blood only) 29.4 % (37.0-47.0); Hemoglobin 9.6 g/dl (12.0-16.0); Mean Corpuscular Hemoglobin 28.1 pg (25.0-34.0); Mean Corpuscular Hgb Conc 32.7 g/dL (32.0-36.0); Mean Platelet Volume 9.9 fL (9.4-12.4); Platelet Count 381 K/uL (130-400); RDW Coefficient of Variation 14.1 % (11.5-14.5); RDW Standard Deviation 44.8 fL (36.4-46.3); Red Blood Count 3.42 M/uL (4.20-5.40); White Blood Count 5.64 K/ul (4.8-10.8)
[2024-01-25 06:55] LABS: Calcium 7.9 mg/dl (8.6-10.3); Est GFR (African American) 71.9 ml/min; Est GFR (Non-African American) 62.1 ml/min; Magnesium 1.8 mg/dl (1.7-2.4); Potassium 4.1 mmol/L (3.5-5.1)
--- NOTE | 2024-01-25 07:48 | Hospitalist Progress Note ---
Date of Service January 25, 2024 Assessment & Plan (1) Proctocolitis: Plan: With sepsis, POA -with leukocytosis, tachycardia, fever, with source being colitis. Lactate normal, not hypotensive Abdominal pain, bloating, nausea, and diarrhea that began on 01/15 after recent [place] hospitalization for acute diverticulitis 01/03-01/10 (recent use of rocephin, flagyl, Unasyn, and doxycycline inpatient; augmentin outpatient) A/P CT revealed nonspecific proctocolitis of the left colon; no abscess; no free intraperitoneal air PCR stool negative, but C. diff gene and toxin positive 3L IVF on admission, continued as below w/ NaHCO3 for acidosis on labs w/ improvement and transition back to LR Temp 38C 01/21, blood cultures remained NGTD. ID consulted given ongoing issues/KUB findings, increased Vancomycin to 500mg Q6H on 01/22 w/ improvement WBC NORMALIZED on AM labs 01/23, did back diet down to NPO x meds/sips and can try some clear if wanting. Has been moving her bowels, doubt obstruction. +BM AM 01/23 and following encounter. Renal function/electrolytes stable/improved Consideration for repeat CTAP however ALLERGY to contrast and reported last tech in [place] when had contrast said would "never give again". Does not appear had been pre-medicated and if needed could attempt but given moving bowels and WBC normalized without further fevers would do w/ oral for eval obstruction (but again, moving bowels, doubt obstruction) vs w/ IV for eval abscess and again WBC normalized/no further fevers but does have LLQ/distension and recent diverticulitis and low threshold to consult surgery/persue CTAP w/ pre- medication attempt if needed 01/24 WBC 5.6k, no further fevers. Blood cultures final NEG x 5 days Continues on Vancomycin 500mg q6h, consideration to back down to 125mg dosing pending status however given clinical course and improvement overnight today and finally looking like turning the corner without need for CTAP at this time and will continue another 24hr of the increased dosing Na to 126, no acidosis, BUN/Cr 7/0.88. K 4.1. Mag 1.8 (will order 1gm IV) Diet adv as jv to low fiber, nutritional supplements to be provided. Incentive spirometer encouraged, L basilar opacity, incentive spirometer encouraged and will f/u 2v cxr in am. CAUTIOUS use of any abx Gentle IVF continued, decreased rate while advancing diet/monitor PO intake (2) Sepsis: Plan: as above, WBC normalized/no further fevers and blood cultures remain NGTD. ID consulted as above and remains on INCREASED VANCOMYCIN 500mg Q6H w/ consideration to back to 125mg tomorrow pending repeat eval/exam/labs (3) C. difficile colitis: Plan: as above, continue inc Vanco dosing for another 24hr (4) Hypokalemia: Plan: resolved but monitoring w/ diarrhea to keep repleted. K 4.1 on am labs and will monitor. Mag 1.8 and additional 1gm ordered (5) GINA (acute kidney injury): Plan: RESOLVED GINA on CKD suspected 2nd to diarrhea/above. IVF hydration and home lasix on hold. NO LE edema on exam BUN/Cr 7/0.88. IVF decreased and hopefully able to dc if increased PO intake/less diarrheal losses BMP (6) Chronic kidney disease, stage III (moderate): Plan: ABOVE, however losartan remains on hold given BPs to prevent hypotension at time. Monitor in AM to see about resuming. Lasix remains on hold and would only resume if needing for now (7) Hypertension: Plan: BPs controlled and remains on metoprolol, amlodipine Lasix on hold as above as well as losartan and GINA now resolved but will continue to hold losartan given borderline BP/above and monitor to resume if remains stable renal function Chronic problems GERD-continue PPI, on lansoprazole and appears on home med list. Prior admission w/ reported allergy to PPI/H2 but tolerating lansoprazole and no dizziness reported however was a little dizzy with getting up AM 01/21 and placed on hold for now and no further episodes reported pepcid trial Anxiety-continue ativan prn O2 sat drop w/ sleeping but no significant pulm congestion on CXR and on room air this afternoon during eval, no SOB reported. ?underlying MARIAELENA (prior ECHO w/ elevated RVSP) Overnight pulse ox w/ drops, will place order for 2L HS can continue at dc, outpt sleep study Plan VTE PPx: Heparin 5000u SQ q12h while inpatient Dispo: continued inpatient stay, Vancomycin dosing increased for now and pos sible decrease to 125mg dosing in AM. Appears able to hold off repeating CTAP w/ improvement in distension/discomfort today but will monitor and would obtain if any worsening abdominal pain/fever/leukocytosis but will need to discuss about premedication given prior hives reaction and told not to get contrast again Updated daughter and at bedside 01/24 Admission and Anticipated Discharge Date Admission Date: January 19, 2024 Supervising Physician Co-Signing Physician Notes The patient was not seen by me. The chart was reviewed. Case discussed with JAMISON Baker. Agree with assessment and plan Subjective Eval this morning, daughter in room. Continued bowel movements, abdominal does appear less distended today, softer, less painful. Discussed ID consideration to decrease vanco dosing but will continue through today and monitor. Does have some R rib discomfort, reproducible on exam and increased with deep breathing but has been on heparin SQ inpatient and not hypoxic so low suspicion for PE at this time. Incentive spirometer encouraged, topical voltaren effective. Monitoring for any shingles rash/lesions but none at this time. EKG stable, no CP at rest. Discussed nutrition/boost, will order. Diet to be advanced/as tolerated. Physical Exam Physical Exam: General: 78yo female sitting up in bed, daughter in room, appears slightly improved today/less fatigued HEENT: head atraumatic, mm slightly dry/improved though, trachea midline Chest: R chest pain reproducible to palpation, increased w/ taking breath but improved w/ voltaren gel, no obvious rash/lesion at this time Resp: even/unlabored, slightly diminished in the bases but no w/c, on room air CV: RRR, no significant m/r/g, no pitting edema/calf tenderness, skin dry/flaky GI: +BS throughout, LESS DISTENSION, softer, LESS tenderness to palpation LLQ (only w/ deep palpation), no further grimacing w/ such, no wamrth/rigidity MSK/Neuro: nonfocal, no slurred speech, answering questions appropriately Psych: AOx3, cooperative with exam Results & Data Results & Data Vital Signs (Past 12 Hours) Vital Signs Temp Pulse Resp BP BP Pulse Ox O2 Del Method 01/25/24 07:27 36.5 C 74 17 114/68 92 Room Air 01/25/24 04:09 36.7 C 75 20 129/62 92 Room Air 01/24/24 23:59 37.1 C 74 18 130/65 94 Room Air 01/24/24 23:29 36.9 C 66 20 112/67 97 Room Air 01/24/24 23:11 Room Air Laboratory Results 01/25/24 Range/Units 05:52 WBC 5.64 (4.8-10.8) K/ul RBC 3.42 L (4.20-5.40) M/uL Hgb 9.6 L (12.0-16.0) g/dl Hct 29.4 L (37.0-47.0) % MCV 86.0 (80.0-100.0) fL MCH 28.1 (25.0-34.0) pg MCHC 32.7 (32.0-36.0) g/dL RDW Std Deviation 44.8 (36.4-46.3) fL RDW Coeff of Jordi 14.1 (11.5-14.5) % Plt Count 381 (130-400) K/uL MPV 9.9 (9.4-12.4) fL Sodium 136 (136-145) mmol/L Potassium 4.1 (3.5-5.1) mmol/L Chloride 108 H (98-107) mmol/L Carbon Dioxide 24 (21-32) mmol/L Anion Gap 4 (3-11) BUN 7 (6-23) mg/dl Creatinine 0.88 (0.6-1.2) mg/dl Est Cr Clr Drug Dosing 44.0 ml/min Est GFR ( Amer) 71.9 ml/min Est GFR (Non-Af Amer) 62.1 ml/min BUN/Creatinine Ratio 8.0 L (10-20) Glucose 94 (70-99(Fasting)) mg/dl Calcium 7.9 L (8.6-10.3) mg/dl Ionized Calcium 1.22 (1.12-1.32) mmol/L Magnesium 1.8 (1.7-2.4) mg/dl Diagnostic Findings Chest X-Ray 01/24/24 17:39 XR chest 1V portable CLINICAL HISTORY: eval atelectasis/pulm edema TECHNIQUE: Single frontal radiograph of the chest was obtained. Comparison: Comparison is made to chest radiograph 01/21/2024 FINDINGS: No lines and tubes are seen. Calcified aortic knob is seen. Left lower lung airspace opacity is seen. Small left pleural effusion. IMPRESSION: Small left pleural effusion. No evidence of pulmonary edema. ACT 112: Negative or not required by law. Electronically signed by: Gianluca Jones M.D. 01/24/2024 7:39 PM PG Care Time/CCT Total # of Minutes Spent Total Time Spent with Patient: Total time spent is greater than 50% in coordination of care (as documented) at patient's floor/unit and/or counseling patient: Coding Level of Care Code 03044 SUB INP/OBS CARE 3/50MIN Diagnoses Proctocolitis K52.9 Sepsis A41.9 C. difficile colitis A04.72 Hypokalemia E87.6 GINA (acute kidney injury) N17.9 Chronic kidney disease, stage III (moderate) N18.3 Hypertension I10
--- NOTE | 2024-01-25 07:54 | Electrocardiogram Report ---
Test Reason : Blood Pressure : / mmHG Vent. Rate : 077 BPM Atrial Rate : 077 BPM P-R Int : 184 ms QRS Dur : 080 ms QT Int : 382 ms P-R-T Axes : 003 023 038 degrees QTc Int : 432 ms Normal sinus rhythm Cannot rule out Anterior infarct , age undetermined Abnormal ECG When compared with ECG of 04-JAN-2024 17:18, Nonspecific T wave abnormality no longer evident in Lateral leads Confirmed by Brendan Poole ([id number]) on 01/25/2024 7:54:08 AM Referred By: REFERRED SELF Confirmed By:Brendan Poole
[2024-01-25] MEDS: MAGNESIUM SULFATE / D5W 1 GM/100 ML BAG IV ONE (07:59)
[2024-01-25] MEDS: FAMOTIDINE 20MG IV PUSH 20 MG/5 ML SYR IV SCH (09:39)
--- NOTE | 2024-01-25 13:31 | XRay Report ---
XR chest 2V PA/lateral CLINICAL HISTORY: f/u L opacity COMPARISON STUDY: Chest radiograph January 24, 2024. FINDINGS: [id number] left and small right pleural fusions are present. Bibasilar opacities are noted. Similar findings were shown on prior chest radiograph. There is no evidence for pulmonary avery ma. There is no pneumothorax. Cardiomediastinal silhouette is unremarkable. IMPRESSION: No significant change in small to moderate left and small right pleural effusions with as sociated bibasilar opacities suggestive of atelectasis. ACT 112: Negative or not required by law. Electronically signed by: Sam Cardona M.D. 01/25/2024 1:29 PM
[2024-01-26 07:28] LABS: Hematocrit (blood only) 32.3 % (37.0-47.0); Hemoglobin 10.3 g/dl (12.0-16.0); Mean Corpuscular Hemoglobin 27.8 pg (25.0-34.0); Mean Corpuscular Hgb Conc 31.9 g/dL (32.0-36.0); Mean Corpuscular Volume 87.1 fL (80.0-100.0); Mean Platelet Volume 9.9 fL (9.4-12.4); Platelet Count 379 K/uL (130-400); RDW Coefficient of Variation 14.3 % (11.5-14.5); RDW Standard Deviation 45.9 fL (36.4-46.3); Red Blood Count 3.71 M/uL (4.20-5.40); White Blood Count 6.41 K/ul (4.8-10.8)
[2024-01-26 07:49] LABS: Albumin Level 2.3 gm/dl (3.4-5.0); BUN Creatinine Ratio 8.2 (10-20); Bilirubin,Total 0.2 mg/dl (0.2-1.0); Calcium 7.9 mg/dl (8.6-10.3); Creatinine Clr Calc Pharmacy 45.6 ml/min; Est GFR (Non-African American) 64.7 ml/min; Globulin 2.3 gm/dl (2.5-4.0); Magnesium 1.7 mg/dl (1.7-2.4); Potassium 3.8 mmol/L (3.5-5.1); Total Protein 4.6 gm/dl (6.0-8.3)
--- NOTE | 2024-01-26 08:13 | Hospitalist Progress Note ---
Date of Service January 26, 2024 Assessment & Plan (1) Proctocolitis: Plan: With sepsis, POA -with leukocytosis, tachycardia, fever, with source being colitis. Lactate normal, not hypotensive Abdominal pain, bloating, nausea, and diarrhea that began on 01/15 after recent [place] hospitalization for acute diverticulitis 01/03-01/10 (recent use of rocephin, flagyl, Unasyn, and doxycycline inpatient; augmentin outpatient) A/P CT revealed nonspecific proctocolitis of the left colon; no abscess; no free intraperitoneal air PCR stool negative, but C. diff gene and toxin positive 3L IVF on admission, continued as below w/ NaHCO3 for acidosis on labs w/ improvement and transition back to LR Temp 38C 01/21, blood cultures remained NGTD. ID consulted given ongoing issues/KUB findings, increased Vancomycin to 500mg Q6H on 01/22 w/ improvement WBC NORMALIZED 01/23, did back diet down to NPO x meds/sips and can try some clear if wanting. Has been moving her bowels, doubt obstruction. +BM AM 01/23 and following encounter. Renal function/electrolytes stable/improved Consideration for repeat CTAP however ALLERGY to contrast and reported last tech in [place] when had contrast said would "never give again". Does not appear had been pre-medicated and if needed could attempt but given moving bowels and WBC normalized without further fevers would do w/ oral for eval obstruction (but again, moving bowels, doubt obstruction) vs w/ IV for eval abscess and again WBC normalized/no further fevers but does have LLQ/distension and recent diverticulitis and low threshold to consult surgery/persue CTAP w/ pre- medication attempt if needed 01/24 WBC 5.6k, no further fevers. Blood cultures final NEG x 5 days Continues on Vancomycin 500mg q6h, consideration to back down to 125mg dosing pending status however given clinical course and improvement overnight today and finally looking like turning the corner without need for CTAP at this time and will continue another 24hr of the increased dosing Na to 126, no acidosis, BUN/Cr 7/0.88. K 4.1. Mag 1.8 (will order 1gm IV) Diet adv as jv to low fiber, nutritional supplements to be provided. Incentive spirometer encouraged, L basilar opacity, incentive spirometer en couraged and will f/u 2v cxr in am. CAUTIOUS use of any abx Gentle IVF continued, decreased rate while advancing diet/monitor PO intake 01/25 WBC 6k, afebrile. Hgb 10.3. IVF discontinued. BUN/Cr 7/0.85. Na 137, K 3.8 (20meq KCl PO ordered), Mag 1.7 (2gm IV ordered). Blood cultures NGTD x 5 days Diet advanced to low fiber, supplements as tolerated KUB w/o obstruction and moving bowels, less loose. CXR pending but decreased discomfort w/ deep breathing and continued incentive spirometry encouraged Continuing Vanco increased dosing for now per discussion w/ supervising provider and will touch base w/ ID in am pending repeat eval about decreasing dosing back to 125 to complete course of treatment (2) Sepsis: Plan: as above, WBC normalized/no further fevers and blood cultures remain NGTD. ID consulted as above and remains on INCREASED VANCOMYCIN 500mg Q6H w/ consideration to back to 125mg tomorrow pending repeat eval/exam/labs (3) C. difficile colitis: Plan: as above, continue inc Vanco dosing for another 24hr through 01/26 (4) Hypokalemia: Plan: resolved but monitoring w/ diarrhea to keep repleted. K 3.8 on am labs and PO ordered and additional IV mag to keep stable (5) GINA (acute kidney injury): Plan: RESOLVED GINA on CKD suspected 2nd to diarrhea/above. IVF hydration and home lasix on hold. NO LE edema on exam BUN/Cr 7/0.88. IVF discontinued and remaining stable and will monitor w/ diarrheal losses (6) Chronic kidney disease, stage III (moderate): Plan: ABOVE, however losartan remains on hold given BPs to prevent hypotension at time but today are finally improving and if stable will plan for losartan resume in AM. Lasix remains on hold for now, no LE edema/hypoxia or pulm congestion on CXR/ Wts remain stable (7) Hypertension: Plan: BPs controlled and remains on metoprolol, amlodipine Lasix on hold as above as well as losartan and GINA now resolved but will continue to hold losartan given borderline BP/above and monitor to resume if remains stable renal function Chronic problems GERD-continue PPI, on lansoprazole and appears on home med list. Prior admission w/ reported allergy to PPI/H2 but tolerating lansoprazole and no dizziness reported however was a little dizzy with getting up AM 01/21 and placed on hold for now and no further episodes reported pepcid trial w/ effectiveness and will continue Anxiety-continue ativan prn O2 sat drop w/ sleeping prior but no significant pulm congestion on CXR and on room air this afternoon during eval, no SOB reported. ?underlying MARIAELENA (prior ECHO w/ elevated RVSP) Overnight pulse ox w/ drops, will place order for 2L HS and can have outpt sleep study Plan VTE PPx: Heparin 5000u SQ q12h while inpatient Dispo: continued inpatient stay, Vancomycin dosing increased for now and possible decrease to 125mg dosing in AM 01/26 Updated daughter in room 01/25, will touch base w/ ID in AM Admission and Anticipated Discharge Date Admission Date: January 19, 2024 Supervising Physician Co-Signing Physician Notes The patient was not seen by me. The chart was reviewed. Case discussed with JAMISON Baker. Agree with assessment and plan Subjective Eval this morning, had larger bowel movement last night, passing gas. Some cramping, oxycodone effective but would like a dose if able. Abdomen slightly more distended today but remains soft. Pain w/ inspiration to her right improving w/ incentive spirometer. Off IVF, electrolyte replacement ordered to keep stores replete w/ bowel movements. Discussed continuing increased Vanco for now and will plan to decrease in AM pending status and if remaining stable ~48hr on decreased dosing can plan for dc to rehab. No further fevers, no chills. Daughter updated in room. Questions/concerns addressed at this time. Physical Exam Physical Exam: General: 78yo female sitting up in bed, daughter in room, appears slightly improved today/less fatigued HEENT: head atraumatic, mm slightly dry/improved though, trachea midline Chest: R chest pain reproducible to palpation, decreased today/improvement w/ deep breathing. voltaren gel in place, no obvious rash/lesion at this time Resp: even/unlabored, slightly diminished in the bases but no w/c, on room air CV: RRR, no significant m/r/g, no pitting edema/calf tenderness, skin dry/flaky GI: +BS throughout, slightly more distended today but remains soft, no increased tenderness to LLQ, no wamrth/rigidity/guarding MSK/Neuro: nonfocal, no slurred speech, answering questions appropriately Psych: AOx3, cooperative with exam Results & Data Results & Data Vital Signs (Past 12 Hours) Vital Signs Temp Pulse Resp BP BP Pulse Ox O2 Del Method 01/26/24 07:48 36.7 C 67 18 129/64 96 Room Air 01/25/24 23:15 Room Air 01/25/24 22:53 36.8 C 99 H 18 123/70 96 Room Air Laboratory Results 01/26/24 Range/Units 06:30 WBC 6.41 (4.8-10.8) K/ul RBC 3.71 L (4.20-5.40) M/uL Hgb 10.3 L (12.0-16.0) g/dl Hct 32.3 L (37.0-47.0) % MCV 87.1 (80.0-100.0) fL MCH 27.8 (25.0-34.0) pg MCHC 31.9 L (32.0-36.0) g/dL RDW Std Deviation 45.9 (36.4-46.3) fL RDW Coeff of Jordi 14.3 (11.5-14.5) % Plt Count 379 (130-400) K/uL MPV 9.9 (9.4-12.4) fL Immature Gran % (Auto) 5.9 % Neut % (Auto) 54.1 % Lymph % (Auto) 21.7 % [place] % (Auto) 14.4 % Eos % (Auto) 2.7 % Baso % (Auto) 1.2 % Neut # (Auto) 3.47 (1.40-6.50) K/uL Lymph # (Auto) 1.39 (1.20-3.40) K/uL [place] # (Auto) 0.92 H (0.11-0.59) K/uL Eos # (Auto) 0.17 (0.00-0.50) K/uL Baso # (Auto) 0.08 (0.00-0.20) K/uL Immature Gran # (Auto) 0.38 H (0.01-0.20) K/uL Sodium 137 (136-145) mmol/L Potassium 3.8 (3.5-5.1) mmol/L Chloride 107 (98-107) mmol/L Carbon Dioxide 26 (21-32) mmol/L Anion Gap 4 (3-11) BUN 7 (6-23) mg/dl Creatinine 0.85 (0.6-1.2) mg/dl Est Cr Clr Drug Dosing 45.6 ml/min Est GFR ( Amer) 75.0 ml/min Est GFR (Non-Af Amer) 64.7 ml/min BUN/Creatinine Ratio 8.2 L (10-20) Glucose 110 H (70-99(Fasting)) mg/dl Calcium 7.9 L (8.6-10.3) mg/dl Magnesium 1.7 (1.7-2.4) mg/dl Total Bilirubin 0.2 (0.2-1.0) mg/dl AST 11 L (13-39) U/L ALT 6 L (7-52) U/L Alkaline Phosphatase 33 L (34-104) U/L Total Protein 4.6 L (6.0-8.3) gm/dl Albumin 2.3 L (3.4-5.0) gm/dl Globulin 2.3 L (2.5-4.0) gm/dl Albumin/Globulin Ratio 1.0 (0.9-2) PG Care Time/CCT Total # of Minutes Spent Total Time Spent with Patient: Total time spent is greater than 50% in coordination of care (as documented) at patient's floor/unit and/or counseling patient: Coding Level of Care Code 87968 SUB INP/OBS CARE 3/50MIN Diagnoses Proctocolitis K52.9 Sepsis A41.9 C. difficile colitis A04.72 Hypokalemia E87.6 GINA (acute kidney injury) N17.9 Chronic kidney disease, stage III (moderate) N18.3 Hypertension I10
[2024-01-26 08:28] LABS: Basophils # (auto) 0.08 K/uL (0.00-0.20); Basophils % (auto) 1.2 %; Eosinophils # (auto) 0.17 K/uL (0.00-0.50); Eosinophils % (auto) 2.7 %; Immature Granulocytes # (auto) 0.38 K/uL (0.01-0.20); Immature Granulocytes % (auto) 5.9 %; Lymphocytes # (auto) 1.39 K/uL (1.20-3.40); Lymphocytes % (auto) 21.7 %; Monocytes # (auto) 0.92 K/uL (0.11-0.59); Monocytes % (auto) 14.4 %; Neutrophils # (auto) 3.47 K/uL (1.40-6.50); Neutrophils % (auto) 54.1 %
[2024-01-26] MEDS: POTASSIUM CHLORIDE CRTAB 20 MEQ TABCR PO STA (08:55)
[2024-01-26] MEDS: MAGNESIUM SULFATE / D5W 1 GM/100 ML BAG IV SCH (09:00)
[2024-01-26] MEDS: oxyCODONE HCL IR 5 MG TAB (IMMEDIATE RELEASE) PO STA (10:54)
--- NOTE | 2024-01-26 10:59 | XRay Report ---
KUB CLINICAL HISTORY: f/u COMPARISON STUDY: CT of the abdomen and pelvis January 19, 2024 and KUB January 24, 2024. FINDINGS: There are cholecystectomy clips. The bowel gas pattern is within normal limits. Evidence fo r left colon wall thickening is again noted. No evidence for free air supine exam. IMPRESSION: 1. No radiographic evidence for a bowel obstruction. 2. Evidence for left colon wall thickening consistent with a nonspecific colitis. ACT 112: Negative or not required by law. Electronically signed by: Sam Cardona M.D. 01/26/2024 10:57 AM
[2024-01-27 06:31] LABS: Hematocrit (blood only) 31.9 % (37.0-47.0); Hemoglobin 10.3 g/dl (12.0-16.0); Mean Corpuscular Hgb Conc 32.3 g/dL (32.0-36.0); Mean Corpuscular Volume 86.7 fL (80.0-100.0); Mean Platelet Volume 9.3 fL (9.4-12.4); Platelet Count 382 K/uL (130-400); RDW Coefficient of Variation 14.3 % (11.5-14.5); RDW Standard Deviation 45.5 fL (36.4-46.3); Red Blood Count 3.68 M/uL (4.20-5.40); White Blood Count 8.43 K/ul (4.8-10.8)
[2024-01-27 06:53] LABS: Basophils # (auto) 0.05 K/uL (0.00-0.20); Basophils % (auto) 0.6 %; Eosinophils # (auto) 0.23 K/uL (0.00-0.50); Eosinophils % (auto) 2.7 %; Immature Granulocytes # (auto) 0.63 K/uL (0.01-0.20); Immature Granulocytes % (auto) 7.5 %; Lymphocytes # (auto) 1.65 K/uL (1.20-3.40); Lymphocytes % (auto) 19.6 %; Monocytes # (auto) 0.82 K/uL (0.11-0.59); Monocytes % (auto) 9.7 %; Neutrophils # (auto) 5.05 K/uL (1.40-6.50); Neutrophils % (auto) 59.9 %; Toxic Granulation 1+
[2024-01-27 07:29] LABS: Albumin Level 2.4 gm/dl (3.4-5.0); Bilirubin,Total 0.2 mg/dl (0.2-1.0); Calcium 7.7 mg/dl (8.6-10.3); Magnesium 1.6 mg/dl (1.7-2.4)
[2024-01-27 07:35] LABS: BUN Creatinine Ratio 11.3 (10-20); Creatinine Clr Calc Pharmacy 39.9 ml/min; Est GFR (African American) 63.9 ml/min; Est GFR (Non-African American) 55.2 ml/min; Globulin 2.3 gm/dl (2.5-4.0); Total Protein 4.7 gm/dl (6.0-8.3)
--- NOTE | 2024-01-27 08:07 | Hospitalist Progress Note ---
Date of Service January 27, 2024 Assessment & Plan (1) Proctocolitis: Plan: With sepsis, POA -with leukocytosis, tachycardia, fever, with source being colitis. Lactate normal, not hypotensive Abdominal pain, bloating, nausea, and diarrhea that began on 01/[address] hospitalization for acute diverticulitis 01/03-01/10 (recent use of rocephin, flagyl, Unasyn, and doxycycline inpatient; augmentin outpatient) A/P CT revealed nonspecific proctocolitis of the left colon; no abscess; no free intraperitoneal air PCR stool negative, but C. diff gene and toxin positive 3L IVF on admission, continued as below w/ NaHCO3 for acidosis on labs w/ improvement and transition back to LR Temp 38C 01/21 ID consulted given ongoing issues/KUB findings --> increased Vancomycin to 500mg Q6H on 01/22 w/ improvement WBC NORMALIZED 01/23 however had made NPO for some bowel rest however had been continuing to move her bowels and doubt obstruction/ileus and was resumed/advanced as tolerated Vancomycin continued 500mg q6h over weekend given improvement WBC remains wnl, afebrile and blood cultures NGTD x 5 days Low fiber diet ordered and tolerating. IVF discontinued. -Mag replacement ordered for this morning Improvement on exam today and decreased vancomycin dosing to 125mg q6h and continuing to monitor over next 24-48 hrs and potential sd Ogema Cares pending If any worsening pain/distension/fevers, will need to consider CTAP WITH con trast and pre-medication however notable last imaging w/ contrast patient reported tech told her "never again" but does not appear had any premedications and could be considered w/ close monitoring Monitor status overnight (2) Sepsis: Plan: Improving, vitals stable, tolerating diet. WBC wnl and afebrile/negative blood cultures vanco dosing decreased back to 125mg for today and will monitor (3) C. difficile colitis: Plan: as above, vanco dosing increased through weekend, backing down to 125mg q7 as above. ?vanco enema consideration (4) Hypokalemia: Plan: resolved/stable monitor (5) GINA (acute kidney injury): Plan: RESOLVED GINA on CKD suspected 2nd to diarrhea/above. IVF hydration and home lasix on hold. NO LE edema on exam IVF discontinued but doesn't appear significantly volume overloaded and lasix remains on hold for now but likely could resume in AM given CXR findings/continued incentive spirometer recd Monitor (6) Chronic kidney disease, stage III (moderate): Plan: as above, losartan on hold for now/can resume in AM (7) Hypertension: Plan: BPs controlled Continues on metoprolol, amlodipine Lasix on hold as above, GINA resolved and can resume losartan for AM given improvement in BPs/stable over past 24-48hrs Chronic problems GERD-continue PPI, on lansoprazole and appears on home med list. Prior admission w/ reported allergy to PPI/H2 but tolerating lansoprazole and no dizziness reported however was a little dizzy with getting up AM 01/21 and placed on hold for now and no further episodes reported pepcid trial w/ effectiveness and will continue Anxiety-continue ativan prn O2 sat drop w/ sleeping prior but no significant pulm congestion on CXR and on room air this afternoon during eval, no SOB reported. ?underlying MARIAELENA (prior ECHO w/ elevated RVSP) Overnight pulse ox w/ drops, will place order for 2L HS and can have outpt sleep study continued improvement w/ incentive spirometer --does have some small b/l effusions on f/u xray and hopefully able to resume home lasix in AM pending volume status (wts down though) Plan VTE PPx: Heparin 5000u SQ q12h while inpatient Vanco dosing backed down and monitoring overnight on reduced dosing but consideration for [place] Cares next 24-48hrs if remaining stable Updated daughter in room/daily, last update 01/25 and was not in room today but can update as needed but should call prior to dc for discussion given concerns for readmission Admission and Anticipated Discharge Date Admission Date: January 19, 2024 Supervising Physician Co-Signing Physician Notes The patient was not seen by me. The chart was reviewed. Case discussed with JAMISON Baker. Agree with assessment and plan Subjective Eval this afternoon following lunch. Some cramping but pain overall improved. Less diarrhea, bowel movements w/ some form to them. WBC wnl and remains afebrile, slightly less distension today and planning to decrease vanco to 125mg dosing and monitor for another 24hrs to ensure remaining stable but instructed if any worsening to alert and we can pursue benadryl/steroids if needing CTAP. R sided rib discomfort not bad at all/almost resolved, continues incentive spirometer/topical voltaren as needed. Og[place] Care 24-48hrs planned. Questions/concerns addressed at this time. Physical Exam Physical Exam: General: 78yo female sitting up in recliner, appears improved, NAD and eating lunch HEENT: head atraumatic, mmm, trachea midline Resp: even/unlabored, slightly diminished in the bases but no w/c, on room air CV: RRR, no significant m/r/g, no pitting edema/calf tenderness, skin dry/flaky GI: +BS throughout, LESS distension, LLQ tenderness to deep palpation IMPROVED, no warmth/rigidity MSK/Neuro: nonfocal, no slurred speech, answering questions appropriately Psych: AOx3, cooperative with exam Results & Data Results & Data Vital Signs (Past 12 Hours) Vital Signs Temp Pulse Resp BP BP Pulse Ox O2 Del Method 01/27/24 07:17 36.4 C L 69 16 118/70 96 Room Air 01/26/24 21:00 Room Air 01/26/24 20:43 36.9 C 86 18 139/74 96 Room Air Laboratory Results 01/27/24 01/26/24 Range/Units 05:48 06:30 WBC 8.43 (4.8-10.8) K/ul RBC 3.68 L (4.20-5.40) M/uL Hgb 10.3 L (12.0-16.0) g/dl Hct 31.9 L (37.0-47.0) % MCV 86.7 (80.0-100.0) fL MCH 28.0 (25.0-34.0) pg MCHC 32.3 (32.0-36.0) g/dL RDW Std Deviation 45.5 (36.4-46.3) fL RDW Coeff of Jordi 14.3 (11.5-14.5) % Plt Count 382 (130-400) K/uL MPV 9.3 L (9.4-12.4) fL Immature Gran % (Auto) 7.5 5.9 % Neut % (Auto) 59.9 54.1 % Lymph % (Auto) 19.6 21.7 % [place] % (Auto) 9.7 14.4 % Eos % (Auto) 2.7 2.7 % Baso % (Auto) 0.6 1.2 % Neut # (Auto) 5.05 3.47 (1.40-6.50) K/uL Lymph # (Auto) 1.65 1.39 (1.20-3.40) K/uL [place] # (Auto) 0.82 H 0.92 H (0.11-0.59) K/uL Eos # (Auto) 0.23 0.17 (0.00-0.50) K/uL Baso # (Auto) 0.05 0.08 (0.00-0.20) K/uL Immature Gran # (Auto) 0.63 H 0.38 H (0.01-0.20) K/uL Toxic Granulation 1+ Sodium 137 (136-145) mmol/L Potassium 4.0 (3.5-5.1) mmol/L Chloride 108 H (98-107) mmol/L Carbon Dioxide 24 (21-32) mmol/L Anion Gap 5 (3-11) BUN 11 (6-23) mg/dl Creatinine 0.97 (0.6-1.2) mg/dl Est Cr Clr Drug Dosing 39.9 ml/min Est GFR ( Amer) 63.9 ml/min Est GFR (Non-Af Amer) 55.2 ml/min BUN/Creatinine Ratio 11.3 (10-20) Glucose 109 H (70-99(Fasting)) mg/dl Calcium 7.7 L (8.6-10.3) mg/dl Magnesium 1.6 L (1.7-2.4) mg/dl Total Bilirubin 0.2 (0.2-1.0) mg/dl AST 10 L (13-39) U/L ALT 5 L (7-52) U/L Alkaline Phosphatase 41 (34-104) U/L Total Protein 4.7 L (6.0-8.3) gm/dl Albumin 2.4 L (3.4-5.0) gm/dl Globulin 2.3 L (2.5-4.0) gm/dl Albumin/Globulin Ratio 1.0 (0.9-2) Diagnostic Findings Chest X-Ray 01/26/24 08:12 XR chest 2V PA/lateral CLINICAL HISTORY: f/u atelectasis vs pna COMPARISON STUDY: Chest radiograph January 25, 2024. FINDINGS: There is no pneumothorax. Small to moderate left and small right pleural effusions with associated bibasilar opacities are unchanged. There is no evidence for pulmonary edema. Cardiomediastinal silhouette is normal. IMPRESSION: No change in small moderate left and small right pleural effusions. Bibasilar opacities favor atelectasis although pneumonia could appear similar. ACT 112: Negative or not required by law. Electronically signed by: Sam Cardona M.D. 01/26/2024 11:49 AM PG Care Time/CCT Total # of Minutes Spent Total Time Spent with Patient: Total time spent is greater than 50% in coordination of care (as documented) at patient's floor/unit and/or counseling patient: Coding Level of Care Code 02349 SUB INP/OBS CARE 3/50MIN Diagnoses Proctocolitis K52.9 Sepsis A41.9 C. difficile colitis A04.72 Hypokalemia E87.6 GINA (acute kidney injury) N17.9 Chronic kidney disease, stage III (moderate) N18.3 Hypertension I10
--- NOTE | 2024-01-27 08:25 | XRay Report ---
XR chest 2V PA/lateral CLINICAL HISTORY: f/u atelectasis vs pna COMPARISON STUDY: Chest radiograph January 25, 2024. FINDINGS: There is no pneumothorax. Small to moderate left and small right pleural effusions with ass ociated bibasilar opacities are unchanged. There is no evidence for pulmonary edema. Cardiomediastina l silhouette is normal. IMPRESSION: No change in small moderate left and small right pleural effusions. Bibasilar opacities f avor atelectasis although pneumonia could appear similar. ACT 112: Negative or not required by law. Electronically signed by: Sam Cardona M.D. 01/26/2024 11:49 AM
[2024-01-27] MEDS: DICLOFENAC SOD 1% GEL 100 GM TUBE EXT SCH (08:39)
[2024-01-27] MEDS: MAGNESIUM SULFATE / D5W 1 GM/100 ML BAG IV SCH (08:40)
--- NOTE | 2024-01-27 11:17 | Infectious Disease Progress Nt ---
Date of Service January 27, 2024 Assessment & Plan (1) C. difficile colitis: (2) Sepsis: (3) Proctocolitis: (4) GINA (acute kidney injury): (5) Chronic kidney disease, stage III (moderate): Plan 78yo F with h/o CKD III, GERD, fibromyalgia, diverticulitis, gallstone pancreatitis 07/2023, chronic cholecystitis s/p lap CCY, GERD, recent admission 01/03-01/10 with acute diverticulitis (tx with CTX/flagyl, abx changed to unasyn and dcd on augmentin) who presented on 01/18 with lower abdominal pain, bloating, chills, and diarrhea that started 01/15 along with fevers x 1d. Here she has been febrile. WBC 35.38>>18.83, Cr 1.19>>1.44. LFT wnl. GIPP positive for C diff gene and toxin. CTAP without IV contrast with findings c/f nonspecific proctocolitis of left colon, advanced colonic diverticulosis w/o acute diverticulitis, favor colitis, superimposed diverticulitis impossible to exclude, no fluid collection seen. CXR with bibasilar opacities suggestive of atelectasis. She was started on PO vancomycin. Course notable for fever on 01/20 and 01/21. KUB on 01/21 with gaseous distention of the colon, mild gaseous distention of several small bowel loops, may represent associated ileus or enteritis. She reported improving diarrhea frequency. Her exam by primary team on 01/21 was notable for LLQ tenderness, more distention. ID consulted 01/21. PO vanc increased to 500mg dose given developing ileus. WBC now downtrending as is Cr. Labs improving 01/23 but still had abdominal pain/distention so she was kept on higher dose of vancomycin. Plan was that if over the weekend, she improving clinically, could decrease dose back down to 125mg. However, if any worsening, may consider repeating CTAP. Apparently she has had an allergy to IV dye and was told never to get it again. # C diff colitis - ?associated ileus, initial episode # GINA - improving # Recent diverticulitis # CKD III WBC normalized, cr stable, afebrile. Ab xray without bowel obstruction. Ab pain less, diarrhea less frequent and more formed - appears to be clinically improving, would change vancomycin back to 125mg PO q6h from 500mg PO q6h and monitor clinically - if any worsening, then may consider repeating CTAP d/w team ID will continue to follow. Rica Dickey MD, MPH Infectious Disease ID Connect [facility], ID Division Call [phone] with questions. Admission and Anticipated Discharge Date Admission Date: January 19, 2024 Subjective This patient recommendation is based on a telemedicine consult request which was completed asynchronously through chart review and information provided by the primary physician. The patient was not seen or examined today. The evaluation is consultative in nature and all patient care and treatment decisions can either be accepted or rejected by the patient's primary hospital-based treating physician using their own independent medical judgment for their patient. Time Spent Reviewing Chart: 11 - 20 minutes Afebrile. WBC 8.43, cr 0.97 Per dw team , she has Less abd pain Results & Data Vital Signs (Past 12 Hours) Vital Signs Temp Pulse Resp BP Pulse Ox O2 Del Method 01/27/24 07:17 36.4 C L 69 16 118/70 96 Room Air Laboratory Results Short CBC 01/27/24 Range/Units 05:48 WBC 8.43 (4.8-10.8) K/ul Hgb 10.3 L (12.0-16.0) g/dl Hct 31.9 L (37.0-47.0) % Plt Count 382 (130-400) K/uL BMP 01/27/24 05:48 Sodium 137 Potassium 4.0 Chloride 108 H Carbon Dioxide 24 BUN 11 Creatinine 0.97 Glucose 109 H Calcium 7.7 L Liver Function 01/27/24 Range/Units 05:48 Total Bilirubin 0.2 (0.2-1.0) mg/dl AST 10 L (13-39) U/L ALT 5 L (7-52) U/L Alkaline Phosphatase 41 (34-104) U/L Albumin 2.4 L (3.4-5.0) gm/dl Diagnostic Findings Chest X-Ray 01/24/24 17:39 XR chest 1V portable CLINICAL HISTORY: eval atelectasis/pulm edema TECHNIQUE: Single frontal radiograph of the chest was obtained. Comparison: Comparison is made to chest radiograph 01/21/2024 FINDINGS: No lines and tubes are seen. Calcified aortic knob is seen. Left lower lung airspace opacity is seen. Small left pleural effusion. IMPRESSION: Small left pleural effusion. No evidence of pulmonary edema. ACT 112: Negative or not required by law. Electronically signed by: Gianluca Jones M.D. 01/24/2024 7:39 PM Chest X-Ray 01/25/24 12:29 XR chest 2V PA/lateral CLINICAL HISTORY: f/u L opacity COMPARISON STUDY: Chest radiograph January 24, 2024. FINDINGS: [id number] left and small right pleural fusions are present. Bibasilar opacities are noted. Similar findings were shown on prior chest radiograph. There is no evidence for pulmonary edema. There is no pneumothorax. Cardiomediastinal silhouette is unremarkable. IMPRESSION: No significant change in small to moderate left and small right pleural effusions with associated bibasilar opacities suggestive of atelectasis. ACT 112: Negative or not required by law. Electronically signed by: Sam Cardona M.D. 01/25/2024 1:29 PM Chest X-Ray 01/26/24 08:12 XR chest 2V PA/lateral CLINICAL HISTORY: f/u atelectasis vs pna COMPARISON STUDY: Chest radiograph January 25, 2024. FINDINGS: There is no pneumothorax. Small to moderate left and small right pleural effusions with associated bibasilar opacities are unchanged. There is no evidence for pulmonary edema. Cardiomediastinal silhouette is normal. IMPRESSION: No change in small moderate left and small right pleural effusions. Bibasilar opacities favor atelectasis although pneumonia could appear similar. ACT 112: Negative or not required by law. Electronically signed by: Sam Cardona M.D. 01/26/2024 11:49 AM KUB X-Ray 01/26/24 10:01 KUB CLINICAL HISTORY: f/u COMPARISON STUDY: CT of the abdomen and pelvis January 19, 2024 and KUB January 24, 2024. FINDINGS: There are cholecystectomy clips. The bowel gas pattern is within normal limits. Evidence for left colon wall thickening is again noted. No evidence for free air supine exam. IMPRESSION: 1. No radiographic evidence for a bowel obstruction. 2. Evidence for left colon wall thickening consistent with a nonspecific colitis. ACT 112: Negative or not required by law. Electronically signed by: Sam Cardona M.D. 01/26/2024 10:57 AM Medications Administered Home Medications Medication Instructions Recorded Confirmed Last Taken lorazepam 0.5 mg tablet 0.5 mg PO DAILY PRN Anxiety 04/14/21 01/19/24 05/22/23 07:30 metoprolol succinate 25 mg 25 mg PO BID 04/14/21 01/19/24 01/04/24 08:00 tablet,extended release 24 hr acetaminophen 500 mg tablet 1,000 mg PO Q6H PRN Back Pain 04/27/21 01/19/24 08/21/21 (Tylenol Extra Strength) ergocalciferol (vitamin D2) 1,250 50,000 unit PO MONTHLY 05/13/23 01/19/24 Unknown mcg (50,000 unit) capsule losartan 100 mg tablet 100 mg PO QAM 05/13/23 01/19/24 01/04/24 amlodipine 10 mg tablet 10 mg PO DAILY 08/05/23 01/19/24 01/04/24 furosemide 20 mg tablet 40 mg (2 x 20 mg) PO DAILY Fluid 08/19/23 01/19/24 01/04/24 Retention #1 tab lansoprazole 30 mg delayed 30 mg PO QPM 01/04/24 01/19/24 01/03/24 release,disintegrating tablet (Prevacid SoluTab) PSYLLIUM or GUAR GUM FIBER SUP 4 g PO BID ##0 01/11/24 01/19/24 Unknown [METAMUCIL or NUTRISOURCE FIBER SUPPLEMENT] amoxicillin 875 mg-potassium 1 tab PO BID #20 tabs 01/11/24 01/19/24 Unknown clavulanate 125 mg tablet oxycodone 5 mg tablet 5 mg PO Q6H PRN pain #20 tabs 01/11/24 01/19/24 Unknown Active Medications Generic Name Dose Route Start Last Admin Trade Name Freq PRN Reason Stop Dose Admin Acetaminophen 650 mg 01/19/24 15:54 01/22/24 03:05 Acetaminophen 325 Mg Tab PO 02/18/24 15:53 650 mg Q4H PRN Administration Pain or Fever Amlodipine Besylate 10 mg 01/20/24 09:00 01/27/24 08:37 Amlodipine Besylate 5 Mg Tab PO 02/19/24 08:59 10 mg DAILY JAYLIN Administration Dorado Syrup 5 ml 01/23/24 12:00 01/27/24 05:27 Dorado Syrup 5 Ml Udp PO 01/29/24 20:29 5 ml Q6 JAYLIN Administration Diclofenac Sodium 2 gm 01/27/24 09:00 01/27/24 08:39 Diclofenac Sod 1% Gel 100 Gm Tube EXT 02/26/24 08:59 2 gm TID JAYLIN Administration Protocol Heparin Sodium (Porcine) 5,000 units 01/19/24 21:00 01/27/24 08:38 Heparin Sod 5,000 Unit/0.5 Ml Vial SQ 02/18/24 20:59 5,000 units Q12 JAYLIN Administration Famotidine 20 mg in 5 mls @ 2.5 mls/min 01/25/24 09:15 01/27/24 08:42 Pepcid 20mg Iv Push IV 02/24/24 09:14 2.5 mls/min QAM JAYLIN Administration Magnesium Sulfate/Dextrose 1 gm in 100 mls @ 50 mls/hr 01/27/24 08:15 01/27/24 10:43 Magnesium Sulfate / D5w IV 01/27/24 12:14 50 mls/hr Q2H JAYLIN Administration Lansoprazole 30 mg 01/19/24 21:00 01/21/24 20:03 Lansoprazole 30 Mg Soltab PO 02/18/24 20:59 30 mg QPM JAYLIN Administration Lorazepam 0.5 mg 01/19/24 15:54 01/20/24 22:47 Lorazepam 0.5 Mg Tab PO 02/18/24 15:53 0.5 mg DAILY PRN Administration Anxiety Losartan Potassium 100 mg 01/20/24 09:00 01/21/24 08:20 Losartan Potassium 50 Mg Tab PO 02/19/24 08:59 100 mg QAM JAYLIN Administration Metoprolol Succinate 25 mg 01/19/24 21:00 01/27/24 08:38 Metoprolol Succ 25mg Ext Rel Tab PO 02/18/24 20:59 25 mg BID JAYLIN Administration Ondansetron HCl 4 mg 01/19/24 15:54 01/26/24 05:57 Ondansetron Inj 2 Mg/Ml 2 Ml Vial IV 02/18/24 15:53 4 mg Q6H PRN Administration Nausea Oxycodone HCl 5 mg 01/22/24 16:32 01/27/24 08:37 Oxycodone Hcl Ir 5 Mg Tab (Immediate Release) PO 02/05/24 12:18 5 mg Q4H PRN Administration pain Vancomycin HCl 500 mg 01/23/24 12:00 01/27/24 05:27 Vancomycin Hcl 500 Mg/10 Ml Soln PO 02/02/24 11:59 500 mg Q6 JAYLIN Administration (5) Chronic kidney disease, stage III (moderate) Chronic kidney disease stage 3 subtype: unspecified whether 3a or 3b Qual ified Code(s): N18.30 - Chronic kidney disease, stage 3 unspecified
[2024-01-27] MEDS: MAGNESIUM CHLORIDE W/CALCIUM 64MG DELAYED REL TAB PO SCH (14:04)
[2024-01-27] MEDS: VANCOMYCIN HCL 500 MG/10 ML SOLN PO SCH (18:05)
[2024-01-28] MEDS: VANCOMYCIN HCL 125 MG/2.5ML SOLN PO SCH (00:12)
[2024-01-28 06:34] LABS: Hematocrit (blood only) 29.5 % (37.0-47.0); Hemoglobin 9.7 g/dl (12.0-16.0); Mean Corpuscular Hemoglobin 28.5 pg (25.0-34.0); Mean Corpuscular Hgb Conc 32.9 g/dL (32.0-36.0); Mean Corpuscular Volume 86.8 fL (80.0-100.0); Mean Platelet Volume 9.2 fL (9.4-12.4); Platelet Count 317 K/uL (130-400); RDW Coefficient of Variation 14.3 % (11.5-14.5); RDW Standard Deviation 45.1 fL (36.4-46.3)
[2024-01-28 07:19] LABS: Albumin Level 2.2 gm/dl (3.4-5.0); Bilirubin,Total 0.1 mg/dl (0.2-1.0); Calcium 7.3 mg/dl (8.6-10.3); Magnesium 1.6 mg/dl (1.7-2.4); Potassium 3.9 mmol/L (3.5-5.1)
[2024-01-28 07:25] LABS: Albumin Globulin Ratio 1.1 (0.9-2); Creatinine Clr Calc Pharmacy 38.7 ml/min; Est GFR (African American) 61.6 ml/min; Est GFR (Non-African American) 53.2 ml/min; Total Protein 4.2 gm/dl (6.0-8.3)
[2024-01-28 07:30] LABS: Basophils # (auto) 0.07 K/uL (0.00-0.20); Basophils % (auto) 0.8 %; Eosinophils # (auto) 0.16 K/uL (0.00-0.50); Eosinophils % (auto) 1.9 %; Immature Granulocytes # (auto) 0.83 K/uL (0.01-0.20); Immature Granulocytes % (auto) 9.7 %; Lymphocytes # (auto) 1.62 K/uL (1.20-3.40); Lymphocytes % (auto) 18.8 %; Monocytes # (auto) 0.66 K/uL (0.11-0.59); Monocytes % (auto) 7.7 %; Neutrophils # (auto) 5.26 K/uL (1.40-6.50); Neutrophils % (auto) 61.1 %; Polychromasia 1+
[2024-01-28] MEDS: MAGNESIUM SULFATE / D5W 1 GM/100 ML BAG IV SCH (10:19)
--- NOTE | 2024-01-28 11:45 | Hospitalist Progress Note ---
Date of Service January 28, 2024 Assessment & Plan (1) Proctocolitis: Plan: With sepsis, POA -with leukocytosis, tachycardia, fevers, with source being colitis. Lactate normal, not hypotensive Abdominal pain, bloating, nausea, and diarrhea that began on 01/15 after recent MD hospitalization for acute diverticulitis 01/03-01/10 (recent use of rocephin, flagyl, Unasyn, and doxycycline inpatient; augmentin outpatient) A/P CT revealed nonspecific proctocolitis of the left colon; no abscess; no free intraperitoneal air PCR stool negative, but C. diff gene and toxin positive Leukocytosis resolved within a few days, afebrile after 2 days of treatment. With ongoing abd distension and pain, had numerous KUBs which show gaseous loops of bowel, no obstruction and proctocolitis as expected. No megacolon ID consulted and recommended increased dose of po Vanco to 500mg q6 which she had for a few days Now with 4 BMs per day, eating low fiber diet, remains with abd distension which may be from volume overload given peripheral edema and pleural effusions on CXR Extend po Vanco to 125mg po qid x total 14 days Decrease oxycodone to 5mg q6h and discouraged use as can cause ileus, add tylenol 1000mg po tid scheduled Giving lasix (2) Sepsis: Plan: Resolved, blood cultures negative secondary to C. diff colitis (3) C. difficile colitis: Plan: as above (4) GINA (acute kidney injury): Plan: RESOLVED GINA on CKD stage 3 suspected 2nd to diarrhea/above. IVF hydration and home losartan and lasix on hold but with pleural effusions, abd distension, peripheral edema--> resume lasix 20mg po daily Follow BMP (5) Chronic kidney disease, stage III (moderate): Plan: losartan on hold -no need for this currently as BPs normal (6) Hypertension: Plan: BPs controlled Continues on metoprolol, amlodipine Lasix to be resumed continue to hold losartan GERD-has lansoprazole on home med list, but thinks PPIs make her dizzy-change Pepcid to po Anxiety-continue ativan prn Plan VTE PPx: Heparin 5000u SQ q12h while inpatient Dispo-continued stay as pt does not feel ready to return home yet, possible discharge tomorrow Admission and Anticipated Discharge Date Admission Date: January 19, 2024 Subjective Pt c/o ongoing abdominal bloating and continues to take oxycodone, but not taking tylenol at all. Has 4 BMs daily and small amounts. Feels her ankles are getting swollen. Does not feel ready to go home yet Physical Exam Constitutional: WD/WN, vitals as above Respiratory: normal respiratory effort, lungs clear to auscultation Cardiovascular: RRR, no murmur, no edema Gastrointestinal (Abdomen): Inspection/Auscultation: + abdomen distended (mild) and normal bowel sounds Percussion/Palpation: + abdomen tender (+TTP LLQ w/o guarding or rebound) and abdomen soft Psychiatric: A+Ox3, euthymic affect Results & Data Results & Data Vital Signs (Past 12 Hours) Vital Signs Temp Pulse Resp BP Pulse Ox O2 Del Method 01/28/24 08:41 83 120/64 01/28/24 07:55 Room Air 01/28/24 07:00 36.7 C 72 14 115/64 95 Room Air Laboratory Results CBC, BMP, magnesium reviewed PG Care Time/CCT Total # of Minutes Spent Total Time Spent with Patient: Total time spent is greater than 50% in coordination of care (as documented) at patient's floor/unit and/or counseling patient: Coding Level of Care Code 15901 SUB INP/OBS CARE 2/35MIN Diagnoses Proctocolitis K52.9 Sepsis A41.9 C. difficile colitis A04.72 GINA (acute kidney injury) N17.9 Chronic kidney disease, stage III (moderate) N18.3 Hypertension I10
[2024-01-28] MEDS: ACETAMINOPHEN 500 MG TAB PO SCH (12:09)
[2024-01-28] MEDS: FUROSEMIDE 20 MG TAB PO SCH (12:42)
--- NOTE | 2024-01-28 14:47 | Infectious Disease Progress Nt ---
Date of Service January 28, 2024 Assessment & Plan (1) C. difficile colitis: (2) Sepsis: (3) Proctocolitis: (4) GINA (acute kidney injury): (5) Chronic kidney disease, stage III (moderate): Plan 78yo F with h/o CKD III, GERD, fibromyalgia, diverticulitis, gallstone pancreatitis 07/2023, chronic cholecystitis s/p lap CCY, GERD, recent admission 01/03-01/10 with acute diverticulitis (tx with CTX/flagyl, abx changed to unasyn and dcd on augmentin) who presented on 01/18 with lower abdominal pain, bloating, chills, and diarrhea that started 01/15 along with fevers x 1d. Here she was febrile. WBC 35.38>>18.83, Cr 1.19>>1.44. LFT wnl. GIPP positive for C diff gene and toxin. CTAP without IV contrast with findings c/f nonspecific proctocolitis of left colon, advanced colonic diverticulosis w/o acute diverticulitis, favor colitis, superimposed diverticulitis impossible to exclude , no fluid collection seen. CXR with bibasilar opacities suggestive of atelectasis. She was started on PO vancomycin. Course notable for fever on 01/20 and 01/21. KUB on 01/21 with gaseous distention of the colon, mild gaseous distention of several small bowel loops, may represent associated ileus or enteritis. She reported improving diarrhea frequency. Her exam by primary team on 01/21 was notable for LLQ tenderness, more distention. ID consulted 01/21. PO vanc increased to 500mg dose given developing ileus. WBC normalized as Cr improved. Labs improving 01/23 but still had abdominal pain/distention so she was kept on higher dose of vancomycin. Plan was that if over the weekend, she improving clinically, could decrease dose back down to 125mg. However, if any worsening, may consider repeating CTAP. Apparently she has had an allergy to IV dye and was told never to get it again. # C diff colitis - ?associated ileus, initial episode # GINA - improving # Recent diverticulitis # CKD III WBC normalized, cr stable, afebrile. Ab xray without bowel obstruction. Ab pain less, diarrhea less frequent and more formed - appears to be clinically improving. Vancomycin dose was changed from from 500mg PO q6h --back to 125 mg PO q 6 on 01/26 [id number] d of vancomycin 125mg PO q6h. EOT 02/02. monitor clinically, if any worsening, then may consider repeating CTAP ID will sign off. Please call with questions. Rica Dickey MD, MPH Infectious Disease ID Connect [facility], ID Division Call [phone] with questions. Admission and Anticipated Discharge Date Admission Date: January 19, 2024 Subjective This patient recommendation is based on a telemedicine consult request which was completed asynchronously through chart review and information provided by the primary physician. The patient was not seen or examined today. The evaluation is consultative in nature and all patient care and treatment decisions can either be accepted or rejected by the patient's primary hospital-based treating physician using their own independent medical judgment for their patient. Time Spent Reviewing Chart: 11 - 20 minutes Afebrile,Normal WBC Results & Data Vital Signs (Past 12 Hours) Vital Signs Temp Pulse Resp BP Pulse Ox O2 Del Method 01/28/24 14:00 36.6 C 72 14 107/62 96 Room Air 01/28/24 12:42 101/63 01/28/24 08:41 83 120/64 01/28/24 07:55 Room Air 01/28/24 07:00 36.7 C 72 14 115/64 95 Room Air Laboratory Results Short CBC 01/28/24 Range/Units 05:54 WBC 8.60 (4.8-10.8) K/ul Hgb 9.7 L (12.0-16.0) g/dl Hct 29.5 L (37.0-47.0) % Plt Count 317 (130-400) K/uL BMP 01/28/24 05:54 Sodium 134 L Potassium 3.9 Chloride 105 Carbon Dioxide 26 BUN 17 Creatinine 1.00 Glucose 112 H Calcium 7.3 L Liver Function 01/28/24 Range/Units 05:54 Total Bilirubin 0.1 L (0.2-1.0) mg/dl AST 11 L (13-39) U/L ALT 5 L (7-52) U/L Alkaline Phosphatase 32 L (34-104) U/L Albumin 2.2 L (3.4-5.0) gm/dl Diagnostic Findings Microbiology 01/19/24 10:59 Blood Aerobic Blood Culture - Final No growth in Aerobic bottle after 5 days. 01/19/24 10:59 Blood Anaerobic Blood Culture - Final No growth in Anaerobic bottle after 5 days. 01/19/24 14:55 Blood Aerobic Blood Culture - Final No growth in Aerobic bottle after 5 days. 01/19/24 14:55 Blood Anaerobic Blood Culture - Final No growth in Anaerobic bottle after 5 days. Chest X-Ray 01/26/24 08:12 XR chest 2V PA/lateral CLINICAL HISTORY: f/u atelectasis vs pna COMPARISON STUDY: Chest radiograph January 25, 2024. FINDINGS: There is no pneumothorax. Small to moderate left and small right pleural effusions with associated bibasilar opacities are unchanged. There is no evidence for pulmonary edema. Cardiomediastinal silhouette is normal. IMPRESSION: No change in small moderate left and small right pleural effusions. Bibasilar opacities favor atelectasis although pneumonia could appear similar. ACT 112: Negative or not required by law. Electronically signed by: Sam Cardona M.D. 01/26/2024 11:49 AM KUB X-Ray 01/26/24 10:01 KUB CLINICAL HISTORY: f/u COMPARISON STUDY: CT of the abdomen and pelvis January 19, 2024 and KUB January 24, 2024. FINDINGS: There are cholecystectomy clips. The bowel gas pattern is within normal limits. Evidence for left colon wall thickening is again noted. No evidence for free air supine exam. IMPRESSION: 1. No radiographic evidence for a bowel obstruction. 2. Evidence for left colon wall thickening consistent with a nonspecific colitis. ACT 112: Negative or not required by law. Electronically signed by: Sam Cardona M.D. 01/26/2024 10:57 AM (5) Chronic kidney disease, stage III (moderate) Chronic kidney disease stage 3 subtype: unspecified whether 3a or 3b Qualified Code(s): N18.30 - Chronic kidney disease, stage 3 unspecified
[2024-01-28] MEDS: oxyCODONE HCL IR 5 MG TAB (IMMEDIATE RELEASE) PO PRN (17:27)
[2024-01-28] MEDS: FAMOTIDINE 20 MG TAB PO SCH (20:10)
[2024-01-29 06:32] LABS: Hematocrit (blood only) 31.6 % (37.0-47.0); Hemoglobin 10.3 g/dl (12.0-16.0); Mean Corpuscular Hemoglobin 28.4 pg (25.0-34.0); Mean Corpuscular Hgb Conc 32.6 g/dL (32.0-36.0); Mean Corpuscular Volume 87.1 fL (80.0-100.0); Platelet Count 303 K/uL (130-400); RDW Coefficient of Variation 14.4 % (11.5-14.5); RDW Standard Deviation 45.4 fL (36.4-46.3); Red Blood Count 3.63 M/uL (4.20-5.40); White Blood Count 10.28 K/ul (4.8-10.8)
[2024-01-29 06:44] LABS: BUN Creatinine Ratio 14.9 (10-20); Calcium 7.5 mg/dl (8.6-10.3); Est GFR (African American) 52.6 ml/min; Est GFR (Non-African American) 45.4 ml/min; Magnesium 1.7 mg/dl (1.7-2.4); Potassium 4.1 mmol/L (3.5-5.1)
[2024-01-29 07:22] LABS: Basophils # (auto) 0.07 K/uL (0.00-0.20); Basophils % (auto) 0.7 %; Eosinophils # (auto) 0.12 K/uL (0.00-0.50); Eosinophils % (auto) 1.2 %; Immature Granulocytes # (auto) 0.84 K/uL (0.01-0.20); Immature Granulocytes % (auto) 8.2 %; Lymphocytes # (auto) 1.18 K/uL (1.20-3.40); Lymphocytes % (auto) 11.5 %; Monocytes # (auto) 0.57 K/uL (0.11-0.59); Monocytes % (auto) 5.5 %; Neutrophils % (auto) 72.9 %
--- NOTE | 2024-01-29 13:56 | Discharge Summary ---
Discharge Summary Date of Service January 29, 2024 Principal Dx & Hospital Course #1 = Principal Diagnosis (1) Proctocolitis: With sepsis, POA -with leukocytosis, tachycardia, fevers, with source being colitis. Lactate normal, not hypotensive Abdominal pain, bloating, nausea, and diarrhea that began on 01/15 after recent [place] hospitalization for acute diverticulitis 01/03-01/10 (recent use of rocephin, flagyl, Unasyn, and doxycycline inpatient; augmentin outpatient) A/P CT revealed nonspecific proctocolitis of the left colon; no abscess; no free intraperitoneal air PCR stool negative, but C. diff gene and toxin positive Leukocytosis resolved within a few days, afebrile after 2 days of treatment. With ongoing abd distension and pain, had numerous KUBs which show gaseous loops of bowel, no obstruction and proctocolitis as expected. No megacolon ID consulted and recommended increased dose of po Vanco to 500mg q6 which she had for a few days Now with 2 BMs per day, eating low fiber diet, remains with abd distension which may be from volume overload given peripheral edema and pleural effusions on CXR and also some gaseous distention from taking oxycodone Gaseous distention is improved on the day of discharge but she feels comfortable enough to go home and is taking Tylenol with occasional oxycodone for pain Extend po Vanco to 125mg po qid x total 14 days through 02/02/2024 Decrease oxycodone to 5mg q6h and discouraged use as can cause ileus, add tylenol 1000mg po tid scheduled-did give a small supply of oxycodone to take home Resumed Lasix which will also help with abdominal distention and peripheral edema Follow-up with GI after discharge as will need colonoscopy in 6 to 8 weeks given diverticulitis-I have sent a message to Dr. Melissa through [employer] notifying him of this (2) Sepsis: Resolved, blood cultures negative secondary to C. diff colitis (3) C. difficile colitis: as above (4) GINA (acute kidney injury): RESOLVED GINA on CKD stage 3 suspected 2nd to diarrhea/above. IVF hydration and home losartan and lasix on hold but with pleural effusions, abd distension, peripheral edema--> resumed lasix 20mg po daily and can resume 40 mg daily on discharge Can resume home losartan as blood pressures are becoming elevated Follow BMP as an outpatient (5) Chronic kidney disease, stage III (moderate): losartan on hold -resume as an outpatient as blood pressures are becoming more elevated and renal function stable (6) Hypertension: BPs becoming elevated as above Continues on metoprolol, amlodipine Lasix and losartan resumed GERD-has lansoprazole on home med list, but thinks PPIs make her dizzy-change Pepcid to po Anxiety-continue ativan prn Plan VTE PPx: Heparin 5000u SQ q12h while inpatient Dispo-DC to home today with home health. Discussed care with daughter at the bedside on the day of discharge Notes For Next Care Provider Follow BMP as an outpatient Needs colonoscopy in 6 to 8 weeks and follow-up with GI Medication Changes From Visit Added vancomycin 125 mg p.o. 4 times daily x 4 more days Discontinued Metamucil Discontinue lansoprazole and started famotidine 20 Mg p.o. twice daily Refilled oxycodone 5 Mg p.o. every 6 hours as needed moderate pain #15 Admission HPI Per Admitting Provider Marisel is a pleasant 78-year-old female with PMH of HTN, CKD stage III, fibromyalgia, depression, GERD, hyperlipidemia, diverticulitis, pancreatitis, and gallstones. She presented for abdominal pain, bloating, chills, and diarrhea that began again on 01/15. Recent [place] hospitalization from 01/03- 01/10 for acute diverticulitis. She was discharged on Metamucil for the diarrhea, as well as oxycodone for the abdominal pain. She initially thought the bloating was secondary to Metamucil use, as she is not accustomed to taking it, but then she developed fever and chills in addition to the abdominal pain. She endorses abdominal located in the lower quadrants transversely (LLQ worse than RLQ). She characterizes it as a dull, cramping, burning pain that is constant, but ramps up at times. She rates the pain 7/10 at present after receiving pain medicine in the ED; 9/10 at worst. She has been taking oxycodone 5 mg 1 tablet daily at bedtime for the pain. Patient has stayed on a full liquid diet since she was discharged from the hospital on 01/10; has not tried to tolerate solids yet. Patient also endorses fever/chills at home that would get up to 100 F over the weekend, but then was around 103 F on the morning of 01/18 before coming in. She has been taking Tylenol for the fever. Her stool has also become loose again after she stopped taking Metamucil on Saturday; she denies any blood in her stool. Her stool is not liquid or dark like it was when she came into the hospital the last time. No sick contacts. No history of IBS, Crohn's, or ulcerative colitis. She denies history of C. difficile in the past. She does not believe her stool has changed and smell, or has become malodorous. In the past she has had problems with constipation, and was on Linzess/85. She denies smoking, tobacco use, recent alcohol use. No supplemental oxygen at baseline, or CPAP at night. Patient's vital signs are stable at time of admission. ED course: Zosyn 4.5 g IV Morphine sulfate 4 mg IV NSS 500 mL IV Zofran 4 mg IV ROS: Patient endorses fever, chills, night-sweats, dizziness last night (resolved), low transverse abd pain, abdominal bloating/cramping, and recurrence of loose stools. Patient denies lightheadedness, PORTILLO, chest pain, SOB, chest palpitations, cough, pleuritic CP, blood in stool, melena, burning with urination, dysuria, blood in urine, or numbness/tingling in arms or legs. Discharge Exam Constitutional WD/WN, vitals as above Respiratory normal respiratory effort, lungs clear to auscultation Cardiovascular Rate/Rhythm: regular rate and regular rhythm Heart Sounds: no murmur Extremities: + edema (Trace pitting edema legs bilaterally) Gastrointestinal (Abdomen) Inspection/Auscultation: + abdomen distended (mild and improved from previous) and normal bowel sounds Percussion/Palpation: + abdomen tender (+TTP LLQ very mild and improved from previous w/o guarding or rebound) and abdomen soft Psychiatric A+Ox3, euthymic affect Updated Medication List Medication Instructions Recorded Confirmed Type lorazepam 0.5 mg tablet 0.5 mg PO DAILY PRN Anxiety 04/14/21 01/19/24 History metoprolol succinate 25 mg 25 mg PO BID 04/14/21 01/19/24 History tablet,extended release 24 hr acetaminophen 500 mg tablet 1,000 mg PO Q6H PRN Back Pain 04/27/21 01/19/24 History (Tylenol Extra Strength) ergocalciferol (vitamin D2) 1,250 50,000 unit PO MONTHLY 05/13/23 01/19/24 History mcg (50,000 unit) capsule losartan 100 mg tablet 100 mg PO QAM 05/13/23 01/19/24 History amlodipine 10 mg tablet 10 mg PO DAILY 08/05/23 01/19/24 History furosemide 20 mg tablet 40 mg (2 x 20 mg) PO DAILY Fluid 08/19/23 01/19/24 Rx Retention #1 tab famotidine 20 mg tablet 20 mg PO BID #60 tabs 01/29/24 Rx oxycodone 5 mg tablet 5 mg PO Q6H PRN pain, moderate #15 01/29/24 Rx tabs vancomycin 125 mg capsule 125 mg PO QID #18 caps 01/29/24 Rx Hospital Stay Data Consultations 01/22/24 12:24 Consult Infectious Diseases Routine Diagnostic Imagining Performed 01/19/24 09:45 CT abd pelvis wo con Stat Numerous chest x-rays and KUBs Pending Results Patient Have Any Pending Studies at Discharge: No Discharge Instructions Given to Patient (Per Discharging Provider) You were admitted with Clostridium difficile colitis which was brought on by taking antibiotics for your diverticulitis. You are improving and need to finish out 4 more days of the antibiotic called vancomycin to be taken 4 times a day. 4-year ongoing abdominal pain from the colitis, this should continue to get better. You can take Tylenol 3 times a day and take oxycodone sparingly as needed for more significant pain. We do want you to try to avoid taking the oxycodone if possible because this binds up the bowels and may cause increased bloating. Some of your bloating is also from not taking your Lasix for the last week. You can resume your usual doses of Lasix. An appointment will also need to be made with Dr. Melissa. His office should be contacting you with this appointment date and time. If you have not heard from them within the next week, please call them to schedule. If you have any questions through the weekend, please feel free to call back into the hospital batt machine operator and ask for Dr. Ponce to be paged. Total Time Total Time Spent Total Time Spent (In Minutes): 40 minutes Total Time Includes: Examination of the Patient, Discharge Planning and Medication Reconciliation Coding Level of Care Code 62223 INP/OBS DISCH >30 MIN Diagnoses Proctocolitis K52.9 Sepsis A41.9 C. difficile colitis A04.72 GINA (acute kidney injury) N17.9 Chronic kidney disease, stage III (moderate) N18.3 Hypertension I10
== END 2024-01-29 14:50 | disposition home health service (06) | DRG 872 ==
LOC: ED 09:27 → EDINP 13:27 → SUATTDRO 13:27 → 2W 15:55 → 3E 01-25 23:19

== ENCOUNTER 2024-02-25 14:12 | Inpatient (IN) ==
--- NOTE | 2024-02-25 14:34 | ED Triage Note ---
Date of Service February 25, 2024 Provider in Triage Author: Vinh Narayan History of Present Illness This patient was briefly evaluated while in triage. An abbreviated physical exam was performed. This patient is a 78-year-old Female who presents to the ED for evaluation here early December for diverticulitis then subsequent C Diff off antibiotics now having continued lower abdominal pain, cramping now increased urination low grade fevers Dr. Melissa's office thought it could be a UTI Physical Exam GENERAL: NAD, ambulatory into triage in a right knee brace and with a cane. CARDIOVASCULAR: RRR RESPIRATORY: CTA ABDOMEN: BS x 4. Lower abdominal TTP. Initial orders for labs and / or imaging were placed and patient was placed in the waiting area until a bed is available. Please see further documentation for the full ED course.
--- NOTE | 2024-02-25 15:43 | Emergency Department Note ---
Impression & Plan Colitis, Abdominal pain, lower ED Provider Note Provider: Vinh Narayan MD DATE OF SERVICE: 02/25/2024 CHIEF COMPLAINT: Lower abdominal discomfort and vomiting with urinary frequency HISTORY OF PRESENT ILLNESS: Patient is a 78-year-old female past medical history significant for recent diverticulitis and then developed C. difficile colitis presenting here today reporting lower abdominal cramping and discomfort with some vomiting and urinary frequency. No syncope or trauma. States that about 5 or 6 days having some increased urinary frequency even when reducing her furosemide usage. She feels dehydrated but has been trying to hydrate. No significant vomiting. Still with some loose stools but nonbloody stools since C. difficile several weeks ago. Temperature of 99 2 yesterday some cramping in the suprapubic region to the left lower quadrant region. No real upper abdominal pain. PAST MEDICAL HISTORY: As noted above MEDICATIONS: Reviewed home medication list SOCIAL HISTORY: Non-smoker PHYSICAL EXAM: GENERAL: alert and oriented in no acute distress on stretcher Head: normocephalic and atraumatic EYES: No injection, discharge or icterus. NECK: Trachea midline. ENT: Mucous membranes pink and moist. LUNGS: Airway patent. No retractions. Breath sounds clear with good air entry bilaterally. HEART: Regular rate and rhythm. No chest wall tenderness ABDOMEN: Soft some slight suprapubic tenderness to left lower quadrant. No guarding. No appreciable masses. SKIN: Acyanotic, warm, dry, without rashes EXTREMITIES: Without swelling, tenderness or deformity NEUROLOGICAL: No focal deficits. No aphasia. No facial droop or slurred speech. Normal strength and tone in the extremities. Sensation to gross touch normal. Ambulatory. CONTINUOUS CARDIAC MONITORING: was ordered and showed a heart rate of 70s bpm in normal sinus rhythm Patient's laboratory studies and imaging reviewed. Differential includes Appendicitis, C. difficile, infections, diverticulitis, UTI, obstruction, mesenteric ischemia, aortic pathology, inflammatory bowel disease, renal colic, PUD, pancreatitis, biliary pathology, hernia, volvulus, constipation, as well as other pathologies. IMPRESSION/MEDICAL DECISION MAKING: No severe diarrhea and doubt recurrence of C. difficile at this time.. Slight suprapubic and left lower quadrant tenderness. Given her complex history CT scan given pelvis be obtained. Without contrast given her allergy profile. Some difficulty getting blood work IV team had to be utilized. Doubt this represents pancreatitis or hepatitis. Doubt perforation. Obtain urine sample to exclude UTI as component of this. Trying to avoid antibiotics if able given history of recent C. difficile. Does not appear febrile or tachycardic or hypotensive here and doubt sepsis. Blood work here without anemia but increased white blood cell count of 16.2 today. Slightly creatinine bump 1.3 and given a small IV fluid bolus. No evidence of acute hepatitis. Borderline hypokalemia 3.3. CT imaging with a slightly improved nonspecific proctocolitis of the left colon not excluding diverticulitis without perforation or abscess. Urinalysis still pending. Do question if she still has some ongoing C. difficile component to her symptoms. Will restart vancomycin given leukocytosis recommend we bring her in for further monitoring with her age and comorbidities for monitor improvement. If urinalysis positive would consider antibiotics empirically. Repeat stool C. difficile testing pending. Patient agreeable and hospitalist contacted. DIAGNOSIS: Proctocolitis DISPOSITION: Discharge Patient was agreeable with this plan. Discussed return precautions and advised follow up. Past Med/Surg History Problem List (Updated 02/25/24 @ 20:57 by Mukesh Echevarria PA-C) Acute kidney injury superimposed on chronic kidney disease Abdominal pain, lower (Acute) Colitis (Acute) Sepsis Colitis (Acute) Hypertension C. difficile colitis Proctocolitis Diarrhea GINA (acute kidney injury) (Acute) Hypokalemia (Acute) Diverticulitis (Acute) Cholecystitis Weight gain Nausea and vomiting Hypomagnesemia Hypokalemia Gallstones Dilated pancreatic duct Back pain (Acute) Pancreatitis (Acute) Acute pancreatitis Abdominal pain (Acute) Abnormal weight loss Odynophagia Encounter for pre-operative examination Acute diverticulitis Peripheral vascular disease Hyperlipidemia Fibromyalgia Depression Scleroderma Hyponatremia (Chronic) Slow transit constipation Vitamin D deficiency (Chronic) Chronic kidney disease, stage III (moderate) (Chronic) 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"; F/U DR PATEL Medical History Chronic kidney disease, stage III (moderate) GERD without esophagitis Hx of cardiac murmur Scleroderma Diverticulitis Peripheral vascular disease Depression Fibromyalgia GERD (gastroesophageal reflux disease) Spinal stenosis Anxiety Secondary hyperparathyroidism Positive NAREN (antinuclear antibody) Hyperkalemia Hypercalcemia Anemia Surgical History History of left cataract extraction History of dilatation and curettage History of esophagogastroduodenoscopy (EGD) History of breast biopsy History of hysterectomy History of appendectomy History of tonsillectomy H/O colonoscopy Family History Other No known health problems Social History Smoking Status: Never smoker Second Hand Exposure: No; Do You Dip or Chew Tobacco: No; Hx Alcohol Use: No Hx Substance Use: No Preferred Language: Serbian Communication Ability: Effective 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 Beliefs That Will Affect Care: None Current Living Situation: Spouse current occupational status: retired Feels Safe at Home: Yes Assistive Devices: Brace/Splint/Immobilizer, Cane and Walker Allergies Allergies Allergy/AdvReac Type Severity Reaction Status Date / Time atropine [From ] Allergy Intermediate Hives Verified 02/25/24 17:54 cimetidine [From Tagamet] Allergy Intermediate Hives Verified 02/25/24 17:54 hyoscyamine [From ] Allergy Intermediate Hives Verified 02/25/24 17:54 Iodinated Contrast Media Allergy Intermediate Hives Verified 02/25/24 17:54 [Iodinated Contrast- Oral and IV Dye] nitrofurantoin Allergy Intermediate Rash Verified 02/25/24 17:54 [From Macrobid] phenobarbital [From ] Allergy Intermediate Hives Verified 02/25/24 17:54 regadenoson Allergy Intermediate loss of Verified 02/25/24 17:54 vision, low Blood pressure scopolamine [From ] Allergy Intermediate Hives Verified 02/25/24 17:54 ketoprofen [From Orudis] Allergy Mild Rash Verified 02/25/24 17:54 diltiazem AdvReac Intermediate Hallucinati Verified 02/25/24 17:54 ng doxepin AdvReac Intermediate Hallucinati Verified 02/25/24 17:54 ng doxycycline AdvReac Intermediate Heartburn Verified 02/25/24 17:54 duloxetine [From Cymbalta] AdvReac Intermediate Swelling Verified 02/25/24 17:54 hydrocodone AdvReac Intermediate Dizziness Verified 02/25/24 17:54 lisinopril [From Zestril] AdvReac Intermediate Swelling Verified 02/25/24 17:54 pantoprazole [From Protonix] AdvReac Intermediate Dizziness Verified 02/25/24 17:54 Home Meds Home Medications Medication Instructions Recorded Confirmed lorazepam 0.5 mg tablet 0.5 mg PO DAILY PRN Anxiety 04/14/21 02/25/24 metoprolol succinate 25 mg 25 mg PO BID 04/14/21 02/25/24 tablet,extended release 24 hr acetaminophen 500 mg tablet 1,000 mg PO Q6H PRN Back Pain 04/27/21 02/25/24 (Tylenol Extra Strength) ergocalciferol (vitamin D2) 1,250 50,000 unit PO MONTHLY 05/13/23 02/25/24 mcg (50,000 unit) capsule losartan 100 mg tablet 100 mg PO QAM 05/13/23 02/25/24 amlodipine 10 mg tablet 10 mg PO DAILY 08/05/23 02/25/24 Previous Rx's Medication Instructions Recorded furosemide 20 mg tablet 40 mg (2 x 20 mg) PO DAILY Fluid 08/19/23 Retention #1 tab famotidine 20 mg tablet 20 mg PO BID #60 tabs 01/29/24 oxycodone 5 mg tablet 5 mg PO Q6H PRN pain, moderate #15 01/29/24 tabs Results & Data (ED) Vital Signs Vital Signs - 24 hr 02/25/24 14:30 02/25/24 17:50 02/25/24 19:28 Temperature 36.8 C Temperature Source Temporal Artery Scan Pulse Rate 78 Pulse Rate [Apical] 73 71 Respiratory Rate 17 18 20 Respiratory Effort / Characteristics Non-Labored Spontaneous Non-Labored Spontaneous Respiratory Depth Normal Normal Normal Respiratory Pattern Regular Blood Pressure 181/69 H Blood Pressure [Right Arm] 173/82 H 163/75 H Blood Pressure Mean 106 Blood Pressure Mean [Right Arm] 112 104 Blood Pressure Position Sitting Pulse Oximetry 99 99 100 Oxygen Delivery Method Room Air Room Air Room Air Sepsis Recent Fever Within 48 Hours No Sepsis New/Unexplained Change in Mental Status No Sepsis Action Taken by Nursing No Action Required 02/25/24 20:08 02/25/24 20:10 Temperature Temperature Source Pulse Rate 67 67 Pulse Rate [Apical] Respiratory Rate 20 Respiratory Effort / Characteristics Respiratory Depth Respiratory Pattern Blood Pressure 140/91 Blood Pressure [Right Arm] Blood Pressure Mean 107 Blood Pressure Mean [Right Arm] Blood Pressure Position Pulse Oximetry 98 Oxygen Delivery Method Room Air Sepsis Recent Fever Within 48 Hours Sepsis New/Unexplained Change in Mental Status Sepsis Action Taken by Nursing Laboratory Data 02/25/24 17:52 02/25/24 17:16 Lab Results 02/25/24 02/25/24 02/25/24 Range/Units 17:16 17:52 19:20 WBC Cancelled 16.23 H RBC Cancelled 3.74 L Hgb Cancelled 10.4 L Hct Cancelled 31.5 L MCV Cancelled 84.2 MCH Cancelled 27.8 MCHC Cancelled 33.0 RDW Std Deviation Cancelled 44.2 RDW Coeff of Jordi Cancelled 14.3 Plt Count Cancelled 249 MPV Cancelled 9.8 Immature Gran % (Auto) Cancelled 0.4 Neut % (Auto) Cancelled 72.7 Lymph % (Auto) Cancelled 18.6 [place] % (Auto) Cancelled 7.6 Eos % (Auto) Cancelled 0.2 Baso % (Auto) Cancelled 0.5 Neut # (Auto) Cancelled 11.79 H Lymph # (Auto) Cancelled 3.02 [place] # (Auto) Cancelled 1.24 H Eos # (Auto) Cancelled 0.04 Baso # (Auto) Cancelled 0.08 Immature Gran # (Auto) Cancelled 0.06 Absolute Nucleated RBC Cancelled Nucleated RBC % (auto) Cancelled Neutrophils % (Manual) Cancelled Band Neutrophils % Cancelled Lymphocytes % (Manual) Cancelled Prolymphocyte % Cancelled Reactive Lymphs % (Man) Cancelled Monocytes % (Manual) Cancelled Eosinophils % (Manual) Cancelled Basophils % (Manual) Cancelled Metamyelocytes % (Man) Cancelled Myelocytes % (Man) Cancelled Promyelocytes % (Man) Cancelled Blast Cells % (Manual) Cancelled Plasma Cell % (Manual) Cancelled Other Cells % Cancelled Nucleated RBC % Cancelled Neutrophils # (Manual) Cancelled Band Neutrophils # Cancelled Total Absolute Neuts Cancelled Lymphocytes # (Manual) Cancelled Prolymphocyte # Cancelled Reactive Lymphs # Cancelled Total Abs Lymphocytes Cancelled Monocytes # (Manual) Cancelled Eosinophils # (Manual) Cancelled Basophils # (Manual) Cancelled Metamyelocytes # (Man) Cancelled Myelocytes # (Manual) Cancelled Promyelocytes # (Man) Cancelled Blast Cells # (Man) Cancelled Plasma Cell # (Manual) Cancelled Other Cells # Cancelled Nucleated RBCs # (Man) Cancelled Hypersegmented Neuts Cancelled Hyposegmented Neuts Cancelled Hypogranular Neuts Cancelled Large Granular Lymphs Cancelled # Lrg Granular Lymphs Cancelled Hairy Cells Cancelled Smudge Cells Cancelled Toxic Granulation Cancelled Toxic Vacuolation Cancelled Dohle Bodies Cancelled Tj Rods Cancelled Platelet Estimate Cancelled Hypogranular Platelets Cancelled Giant Platelets Cancelled Platelet Satelliting Cancelled RBC Morphology Cancelled Polychromasia Cancelled Hypochromasia Cancelled Poikilocytosis Cancelled Basophilic Stippling Cancelled Anisocytosis Cancelled Microcytosis Cancelled Macrocytosis Cancelled Spherocytes Cancelled Pappenheimer Bodies Cancelled Sickle Cells Cancelled Target Cells Cancelled Tear Drop Cells Cancelled Ovalocytes Cancelled Stomatocytes Cancelled [place] Bodies Cancelled Echinocytes Cancelled Acanthocytes (Spur) Cancelled Rouleaux Cancelled RBC Agglutinates Cancelled Schistocytes Cancelled Sezary Cell Cancelled Sodium 138 (136-145) mmol/L Potassium 3.3 L (3.5-5.1) mmol/L Chloride 100 (98-107) mmol/L Carbon Dioxide 28 (21-32) mmol/L Anion Gap 10 (3-11) BUN 18 (6-23) mg/dl Creatinine 1.38 H (0.6-1.2) mg/dl Est Cr Clr Drug Dosing 27.3 ml/min Est GFR ( Amer) 41.7 ml/min Est GFR (Non-Af Amer) 36.0 ml/min BUN/Creatinine Ratio 13.0 (10-20) Glucose 107 H (70-99(Fasting)) mg/dl Calcium 9.7 (8.6-10.3) mg/dl Magnesium 1.9 (1.7-2.4) mg/dl Total Bilirubin 0.6 (0.2-1.0) mg/dl AST 16 (13-39) U/L ALT 6 L (7-52) U/L Alkaline Phosphatase 81 (34-104) U/L Total Protein 7.6 (6.0-8.3) gm/dl Albumin 4.2 (3.4-5.0) gm/dl Globulin 3.4 (2.5-4.0) gm/dl Albumin/Globulin Ratio 1.2 (0.9-2) Urine Color Yellow Urine Appearance Clear (Clear) Urine pH 7.0 (4.5-7.5) Ur Specific Damon 1.014 (1.000-1.030) Urine Protein Trace H (Negative) Urine Glucose (UA) Negative (Negative) Urine Ketones Negative (Negative) Urine Blood Negative (Negative) Urine Nitrite Negative (Negative) Urine Bilirubin Negative (Negative) Urine Urobilinogen Negative (Negative) Ur Leukocyte Esterase Trace H (Negative) Urine WBC (Auto) 0-5 (0-5) /hpf Urine RBC (Auto) 0-2 (0-2) /hpf U Hyaline Cast (Auto) 0-2 (0-2) /lpf U Epithel Cells (Auto) 0-2 (0-2) /hpf Urine Bacteria (Auto) None Seen (None Seen) Blood Parasites ID Cancelled Administered Medications Discontinued Medications Dorado Syrup (Dorado Syrup 5 Ml Udp) 5 ml PO ONE STA Stop: 02/25/24 19:33 Last Admin: 02/25/24 20:11 Dose: 5 ml Documented By: ESTER Sodium Chloride (Nss) 250 mls @ 999 mls/hr IV .Q16M ONE Stop: 02/25/24 17:20 Last Infusion: 02/25/24 18:10 Dose: Infused Documented By: Admin: 02/25/24 17:25 Dose: 999 mls/hr Documented By: AMARILYS Vancomycin HCl (Vancomycin Hcl 125 Mg/2.5ml Soln) 125 mg PO ONE STA Stop: 02/25/24 19:33 Last Admin: 02/25/24 20:11 Dose: 125 mg Documented By: ESTER Imaging Data Radiologist's Impression: Abdomen/Pelvis CT 02/25/24 15:[address] WITHOUT CONTRAST CT DOSE: 468.75 mGy.cm HISTORY: lower abd cramping, nausea TECHNIQUE: Multiaxial CT images of the abdomen and pelvis were performed without contrast. A dose lowering technique was utilized adhering to the principles of ALARA. COMPARISON STUDY: Abdomen and pelvis CT 01/19/2024. FINDINGS: There are small bilateral pleural effusions with associated mild compressive atelectasis within the lower lobes. No pneumoperitoneum. No pneumatosis. No acute fractures. Prior cholecystectomy. Stable 12 mm hypodense lesion within the liver. This favors a cyst. The unenhanced spleen, adrenal glands, and pancreas are unremarkable. No renal stones or hydronephrosis. Moderate calcified plaque within the normal caliber abdominal aorta. No retroperitoneal or pelvic lymphadenopathy. The bladder is unremarkable. Prior hysterectomy. Trace pelvic free fluid. There is mild circumferential thickening involving the descending colon, sigmoid colon, and rectum with mild pericolonic fat stranding. This has slightly improved in the interval and is consistent with a nonspecific proctocolitis. There are 2 adjacent inflamed diverticulum within the proximal sigmoid colon with mild surrounding fat stranding best seen on image 250. This may correspond to the suspected proctocolitis. A superimposed acute diverticulitis is not excluded. No perforation or abscess identified. The appendix is surgically absent. IMPRESSION: 1. Above findings consistent with a nonspecific proctocolitis within the left colon. This has slightly improved. 2. There are 2 adjacent inflamed diverticulum within the proximal sigmoid colon with mild surrounding fat stranding. This may correspond to the suspected proctocolitis. A superimposed acute diverticulitis is not excluded. No perforation or abscess at this time. 3. No evidence for bowel obstruction. 4. Postoperative changes as described above. 5. Small bilateral pleural effusions. ACT 112: Negative or not required by law. Electronically signed by: Mukesh Nicholson M.D. 02/25/2024 6:04 PM Discharge Plan Visit Data Chief Complaint: Referred by Doctor Stated Complaint: CRAMPS, PAIN, FVER ED Provider: Vinh Narayan Discharge Problem: Colitis, Abdominal pain, lower Patient Disposition: Being Evaluated by Hospitalist Forms Stand Alone Forms: [facility] Prescriptions Prescriptions: No Action lorazepam 0.5 mg tablet 0.5 mg PO DAILY PRN (Reason: Anxiety) metoprolol succinate 25 mg tablet extended release 24 hr 25 mg PO BID acetaminophen [Tylenol Extra Strength] 500 mg Tablet 1,000 mg PO Q6H PRN (Reason: Back Pain) losartan 100 mg Tablet 100 mg PO QAM ergocalciferol (vitamin D2) 1,250 mcg (50,000 unit) capsule 50,000 unit PO MONTHLY Rx Instructions: MIDDLE OF THE MONTH amlodipine 10 mg tablet 10 mg PO DAILY furosemide 20 mg Tablet 40 mg PO DAILY Qty: 1 0RF famotidine 20 mg Tablet 20 mg PO BID Qty: 60 0RF oxycodone 5 mg Tablet 5 mg PO Q6H PRN (Reason: pain, moderate) Qty: 15 0RF Referrals Referrals: Peter Stark [Primary Care Provider] -
[2024-02-25] MEDS: SODIUM CHLORIDE 0.9% 250 ML IV ONE (17:25)
[2024-02-25 17:54] LABS: Albumin Globulin Ratio 1.2 (0.9-2); Albumin Level 4.2 gm/dl (3.4-5.0); Bilirubin,Total 0.6 mg/dl (0.2-1.0); Calcium 9.7 mg/dl (8.6-10.3); Creatinine Clr Calc Pharmacy 27.3 ml/min; Est GFR (African American) 41.7 ml/min; Globulin 3.4 gm/dl (2.5-4.0); Potassium 3.3 mmol/L (3.5-5.1); Total Protein 7.6 gm/dl (6.0-8.3)
--- NOTE | 2024-02-25 18:07 | CT Scan Report ---
ABDOMEN AND PELVIS CT WITHOUT CONTRAST CT DOSE: 468.75 mGy.cm HISTORY: lower abd cramping, nausea TECHNIQUE: Multiaxial CT images of the abdomen and pelvis were performed without contrast. A dose lo wering technique was utilized adhering to the principles of ALARA. COMPARISON STUDY: Abdomen and pelvis CT 01/19/2024. FINDINGS: There are small bilateral pleural effusions with associated mild compressive atelectasis wi thin the lower lobes. No pneumoperitoneum. No pneumatosis. No acute fractures. Prior cholecystectomy. Stable 12 mm hypodense lesion within the liver. This favors a cyst. The unenhanced spleen, adrenal g lands, and pancreas are unremarkable. No renal stones or hydronephrosis. Moderate calcified plaque wi thin the normal caliber abdominal aorta. No retroperitoneal or pelvic lymphadenopathy. The bladder is unremarkable. Prior hysterectomy. Trace pelvic free fluid. There is mild circumferential thickening involving the descending colon, sigmoid colon, and rectum with mild pericolonic fat stranding. This h as slightly improved in the interval and is consistent with a nonspecific proctocolitis. There are 2 adjacent inflamed diverticulum within the proximal sigmoid colon with mild surrounding fat stranding best seen on image 250. This may correspond to the suspected proctocolitis. A superimposed acute dive rticulitis is not excluded. No perforation or abscess identified. The appendix is surgically absent. IMPRESSION: 1. Above findings consistent with a nonspecific proctocolitis within the left colon. This has slightl y improved. 2. There are 2 adjacent inflamed diverticulum within the proximal sigmoid colon with mild surrounding fat stranding. This may correspond to the suspected proctocolitis. A superimposed acute diverticulit is is not excluded. No perforation or abscess at this time. 3. No evidence for bowel obstruction. 4. Postoperative changes as described above. 5. Small bilateral pleural effusions. ACT 112: Negative or not required by law. Electronically signed by: Mukesh Nicholson M.D. 02/25/2024 6:04 PM
[2024-02-25 18:18] LABS: Basophils # (auto) 0.08 K/uL (0.00-0.20); Basophils % (auto) 0.5 %; Eosinophils # (auto) 0.04 K/uL (0.00-0.50); Eosinophils % (auto) 0.2 %; Hematocrit (blood only) 31.5 % (37.0-47.0); Hemoglobin 10.4 g/dl (12.0-16.0); Immature Granulocytes # (auto) 0.06 K/uL (0.01-0.20); Immature Granulocytes % (auto) 0.4 %; Lymphocytes # (auto) 3.02 K/uL (1.20-3.40); Lymphocytes % (auto) 18.6 %; Mean Corpuscular Hemoglobin 27.8 pg (25.0-34.0); Mean Corpuscular Volume 84.2 fL (80.0-100.0); Mean Platelet Volume 9.8 fL (9.4-12.4); Monocytes # (auto) 1.24 K/uL (0.11-0.59); Monocytes % (auto) 7.6 %; Neutrophils # (auto) 11.79 K/uL (1.40-6.50); Neutrophils % (auto) 72.7 %; Platelet Count 249 K/uL (130-400); RDW Coefficient of Variation 14.3 % (11.5-14.5); RDW Standard Deviation 44.2 fL (36.4-46.3); Red Blood Count 3.74 M/uL (4.20-5.40); White Blood Count 16.23 K/ul (4.8-10.8)
--- NOTE | 2024-02-25 19:36 | History & Physical Report ---
Date of Service February 25, 2024 Assessment & Plan (1) Proctocolitis: Plan: Patient returns for recurrence of lower, transverse abdominal pain x 1 week Ongoing diarrhea Recent [place] hospitalization for C. difficile colitis; completed 14-day course of vancomycin Repeat C. difficile, pending A/P CT on arrival revealed nonspecific proctocolitis within the left colon; superimposed acute diverticulitis cannot be excluded While patient has a hx of diverticulitis, suspect this is a recurrence of her C. Diff infection Leukocytosis at 16.23 with neutrophil predominance; afebrile but reported low- grade fevers at home Monitor K and Mag levels Acetaminophen as needed for pain/fever Discussed with both pharmacy and patient regarding cost of Dificid vs vancomycin Given patient is hemodynamically stable/nontoxic appearing, will continue with vancomycin p.o. 125mg q6h for now despite recurrence Will plan for pulsed-tapered regimen Infectious disease consulted Contact isolation precautions A.m. CBC, BMP, Mag (2) C. difficile colitis: Plan: Recurrent; see #1 (3) Diverticulitis: Plan: Superimposed acute diverticulitis cannot be excluded at this time While suspect C. difficile is the leading cause of patient's symptoms, will keep on bowel rest for now N.p.o. except for p.o. medications + IVF (4) Acute kidney injury superimposed on chronic kidney disease: Plan: Creatinine 1.38 (baseline ~0.8) on arrival Right kidney does not function; follows with [place] [facility] outpatient Avoid nephrotoxic agents IVF resuscitation with LR at 100mL/hr x 2 L Vancomycin okay in p.o. form Hold losartan (5) Hypokalemia: Plan: Mild; K 3.3 on arrival K rider 10mEq x 2 Hold lasix Recheck am K (6) Hypertension: Plan: Continue metoprolol, amlodipine Plan [facility] Full code NPO for now and advance diet as tolerated VTE PPx: Heparin 5000u SQ q12h History of Present Illness Chief Complaint: Ongoing lower abdominal pain and diarrhea, low-grade fevers Primary Care Provider: Peter Joiner is an 78-year-old female with PMH of C. difficile colitis, diverticulitis, HTN, fibromyalgia, HLD, depression, scleroderma, vitamin D deficiency, and CKD stage III. She presented on 02/24 for recurrence of lower abdominal cramping and diarrhea with low-grade fever. Patient was recently hospitalized from 01/18 -to 01/28 for a C. difficile colitis. She completed a 14- day course of p.o. vancomycin and infectious disease was consulted. She reports that her abdominal cramping then returned around 1 week ago. Her diarrhea has been intermittent and ongoing. No blood in her stool. She is having diarrhea with a frequency of twice daily, but reports it is not as loose as it was previously; she describes it looks like a "cowpat", but more mushy. No dark tarry stool. Her abdominal cramping is transverse across her lower quadrants; intermittent and can last for hours at a time; she is unable to rate the pain, but reports that it is so bad at times that she feels like she will "pass out". Pain is exacerbated by eating and moving bowels. She denies any recent fainting. No recent injuries or trauma to the abdomen or pelvis. She did not take her regular morning medications today; no recent change in medications. She does not have a history of UTIs. She denies smoking, tobacco use, recent alcohol use. Patient's vitals are stable at time of admission. ED course: NSS 250 mL IV Vancomycin 125 mg p.o. ROS: Patient endorses low-grade fever 99.3 at home (runs low), chills, abdominal cramping, diarrhea, and increased urinary frequency. Patient denies night-sweats, dizziness, lightheadedness, PORTILLO, chest pain, chest palpitations, SOB, cough, nausea, vomiting, lower back pain, burning with urination, blood in urine/stool, saddle anesthesia, or numbness/tingling in the arms or legs. Allergies Allergy/AdvReac Type Severity Reaction Status Date / Time atropine [From ] Allergy Intermediate Hives Verified 02/25/24 17:54 cimetidine [From Tagamet] Allergy Intermediate Hives Verified 02/25/24 17:54 hyoscyamine [From ] Allergy Intermediate Hives Verified 02/25/24 17:54 Iodinated Contrast Media Allergy Intermediate Hives Verified 02/25/24 17:54 [Iodinated Contrast- Oral and IV Dye] nitrofurantoin Allergy Intermediate Rash Verified 02/25/24 17:54 [From Macrobid] phenobarbital [From ] Allergy Intermediate Hives Verified 02/25/24 17:54 regadenoson Allergy Intermediate loss of Verified 02/25/24 17:54 vision, low Blood pressure scopolamine [From ] Allergy Intermediate Hives Verified 02/25/24 17:54 ketoprofen [From Orudis] Allergy Mild Rash Verified 02/25/24 17:54 diltiazem AdvReac Intermediate Hallucinati Verified 02/25/24 17:54 ng doxepin AdvReac Intermediate Hallucinati Verified 02/25/24 17:54 ng doxycycline AdvReac Intermediate Heartburn Verified 02/25/24 17:54 duloxetine [From Cymbalta] AdvReac Intermediate Swelling Verified 02/25/24 17:54 hydrocodone AdvReac Intermediate Dizziness Verified 02/25/24 17:54 lisinopril [From Zestril] AdvReac Intermediate Swelling Verified 02/25/24 17:54 pantoprazole [From Protonix] AdvReac Intermediate Dizziness Verified 02/25/24 17:54 Home Medications Medication Instructions Recorded Confirmed Type lorazepam 0.5 mg tablet 0.5 mg PO DAILY PRN Anxiety 04/14/21 02/25/24 History metoprolol succinate 25 mg 25 mg PO BID 04/14/21 02/25/24 History tablet,extended release 24 hr acetaminophen 500 mg tablet 1,000 mg PO Q6H PRN Back Pain 04/27/21 02/25/24 History (Tylenol Extra Strength) ergocalciferol (vitamin D2) 1,250 50,000 unit PO MONTHLY 05/13/23 02/25/24 History mcg (50,000 unit) capsule losartan 100 mg tablet 100 mg PO QAM 05/13/23 02/25/24 History amlodipine 10 mg tablet 10 mg PO DAILY 08/05/23 02/25/24 History furosemide 20 mg tablet 40 mg (2 x 20 mg) PO DAILY Fluid 08/19/23 02/25/24 Rx Retention #1 tab famotidine 20 mg tablet 20 mg PO BID #60 tabs 01/29/24 02/25/24 Rx oxycodone 5 mg tablet 5 mg PO Q6H PRN pain, moderate #15 01/29/24 02/25/24 Rx tabs Past Med/Surg History Problem List (Updated 02/25/24 @ 20:57 by Mukesh Echevarria PA-C) Acute kidney injury superimposed on chronic kidney disease Abdominal pain, lower (Acute) Colitis (Acute) Sepsis Colitis (Acute) Hypertension C. difficile colitis Proctocolitis Diarrhea GINA (acute kidney injury) (Acute) Hypokalemia (Acute) Diverticulitis (Acute) Cholecystitis Weight gain Nausea and vomiting Hypomagnesemia Hypokalemia Gallstones Dilated pancreatic duct Back pain (Acute) Pancreatitis (Acute) Acute pancreatitis Abdominal pain (Acute) Abnormal weight loss Odynophagia Encounter for pre-operative examination Acute diverticulitis Peripheral vascular disease Hyperlipidemia Fibromyalgia Depression Scleroderma Hyponatremia (Chronic) Slow transit constipation Vitamin D deficiency (Chronic) Chronic kidney disease, stage III (moderate) (Chronic) 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"; F/U DR PATEL Medical History Chronic kidney disease, stage III (moderate) GERD without esophagitis Hx of cardiac murmur Scleroderma Diverticulitis Peripheral vascular disease Depression Fibromyalgia GERD (gastroesophageal reflux disease) Spinal stenosis Anxiety Secondary hyperparathyroidism Positive NAREN (antinuclear antibody) Hyperkalemia Hypercalcemia Anemia Surgical History History of left cataract extraction History of dilatation and curettage History of esophagogastroduodenoscopy (EGD) History of breast biopsy History of hysterectomy History of appendectomy History of tonsillectomy H/O colonoscopy Family History Other No known health problems Social History Smoking Status: Never smoker Second Hand Exposure: No; Do You Dip or Chew Tobacco: No; Hx Alcohol Use: No Hx Substance Use: No Preferred Language: Armenian Communication Ability: Effective Package Checker Required: No Beliefs That Will Affect Care: None Current Living Situation: Spouse current occupational status: retired Feels Safe at Home: Yes Safety Concerns: Feels Safe At This Time Assistive Devices: Brace/Splint/Immobilizer, Cane and Walker Review of Systems Review of Systems: See HPI above Physical Exam Physical Exam: General: no acute distress; pleasant affect; non-toxic appearing; well- nourished; cooperative HEENT: normocephalic, atraumatic; no scleral icterus; PERRLA w/ EOMs intact; vision and hearing grossly intact Neck: supple; no lymphadenopathy; trachea midline Skin: warm, dry without signs of tenting; no cyanosis; no rashes, bruising, lesions, or erythema noted CV: chest wall NTP; RRR; S1/S2 normal; no murmurs/rubs/gallops; pulses intact and symmetric at radial, DP, and PT Lungs: no acute respiratory distress; symmetrical chest wall expansion; clear breath sounds across all lung jaffe w/o adventitious sounds; no wheezing ABD: Soft; left lower quadrant is tender to palpation; all other quadrants nontender; BS present; no rebound/guarding; no distention MSK: no tics or fasciculations; no edema noted in the LEs b/l, nonerythematous Neuro: A&Ox3; normal mood and affect; fluent speech; no focal deficits; sensation grossly intact in the LEs b/l Results & Data Results & Data Vital Signs (Past 12 Hours) Vital Signs Temp Pulse Pulse Resp BP BP Pulse Ox 02/25/24 19:28 71 20 163/75 H 100 02/25/24 17:50 73 18 173/82 H 99 02/25/24 14:30 36.8 C 78 17 181/69 H 99 O2 Del Method 02/25/24 19:28 Room Air 02/25/24 17:50 Room Air 02/25/24 14:30 Room Air Laboratory Results Abnormal lab results 02/25/24 02/25/24 Range/Units 17:16 17:52 WBC 16.23 H (4.8-10.8) K/ul RBC 3.74 L (4.20-5.40) M/uL Hgb 10.4 L (12.0-16.0) g/dl Hct 31.5 L (37.0-47.0) % Neut # (Auto) 11.79 H (1.40-6.50) K/uL [place] # (Auto) 1.24 H (0.11-0.59) K/uL Potassium 3.3 L (3.5-5.1) mmol/L Creatinine 1.38 H (0.6-1.2) mg/dl Glucose 107 H (70-99(Fasting)) mg/dl ALT 6 L (7-52) U/L Diagnostic Findings Abdomen/Pelvis CT 02/25/24 15:[address] WITHOUT CONTRAST CT DOSE: 468.75 mGy.cm HISTORY: lower abd cramping, nausea TECHNIQUE: Multiaxial CT images of the abdomen and pelvis were performed without contrast. A dose lowering technique was utilized adhering to the principles of ALARA. COMPARISON STUDY: Abdomen and pelvis CT 01/19/2024. FINDINGS: There are small bilateral pleural effusions with associated mild compressive atelectasis within the lower lobes. No pneumoperitoneum. No pneumatosis. No acute fractures. Prior cholecystectomy. Stable 12 mm hypodense lesion within the liver. This favors a cyst. The unenhanced spleen, adrenal glands, and pancreas are unremarkable. No renal stones or hydronephrosis. Moderate calcified plaque within the normal caliber abdominal aorta. No retroperitoneal or pelvic lymphadenopathy. The bladder is unremarkable. Prior hysterectomy. Trace pelvic free fluid. There is mild circumferential thickening involving the descending colon, sigmoid colon, and rectum with mild pericolonic fat stranding. This has slightly improved in the interval and is consistent with a nonspecific proctocolitis. There are 2 adjacent inflamed diverticulum within the proximal sigmoid colon with mild surrounding fat stranding best seen on image 250. This may correspond to the suspected proctocolitis. A superimposed acute diverticulitis is not excluded. No perforation or abscess identified. The appendix is surgically absent. IMPRESSION: 1. Above findings consistent with a nonspecific proctocolitis within the left colon. This has slightly improved. 2. There are 2 adjacent inflamed diverticulum within the proximal sigmoid colon with mild surrounding fat stranding. This may correspond to the suspected proctocolitis. A superimposed acute diverticulitis is not excluded. No perforation or abscess at this time. 3. No evidence for bowel obstruction. 4. Postoperative changes as described above. 5. Small bilateral pleural effusions. ACT 112: Negative or not required by law. Electronically signed by: Mukesh Nicholson M.D. 02/25/2024 6:04 PM Code Status & VTE Plan Code Status Full code (discussed with both patient and patient's daughter at bedside) VTE Prophylaxis Plan VTE Prophylaxis will be ordered: Yes Supervising Physician Co-Signing Physician Notes Attending addendum: I have physically seen this patient, have supervised the medical residents activities, and agree with the H&P unless as otherwise noted. Assessment and Plan: Proctocolitis involving left colon/question superimposed acute diverticulitis- CT scan with findings as above Recent hospitalization for C. difficile colitis, having completed a 14-day course of oral vancomycin Repeat C. difficile testing pending Stool PCR testing pending Leukocytosis with left shift Begin empiric treatment with vancomycin 125 mg p.o. every 6 hours. If C. difficile colitis has returned, should be considered on a long-term maintenance dose prevention if appropriate Follow CBC with differential, chemistry profile and magnesium level Acute kidney injury/hypokalemia Creatinine 1.38, with base 1.14 Potassium 3.3 on admission Hold Lasix Oral potassium supplement as noted IV fluids as noted Recheck laboratories in a.m. Hypertension- Continue metoprolol and amlodipine with hold parameters PG Care Time/CCT Total # of Minutes Spent Total Time Spent with Patient: Total time spent is greater than 50% in coordination of care (as documented) at patient's floor/unit and/or counseling patient: Coding [place] [address] INT INP/OBS CARE 3/75MIN Patient Type Established Medical Decision Making High Complexity Diagnoses Proctocolitis K52.9 C. difficile colitis A04.72 Diverticulitis K57.92 Acute kidney injury superimposed on chronic kidney disease N17.9; N18.9 Hypokalemia E87.6 Hypertension I10
[2024-02-25 19:41] LABS: Appearance Urine Clear (Clear); Bacteria Urine Automated None Seen (None Seen); Bilirubin Urine Negative (Negative); Blood Urine Negative (Negative); Cast Urine Automated 0-2 /lpf (0-2); Color Urine Yellow; Epithelial Cell Urine Auto 0-2 /hpf (0-2); Glucose Urine UA Negative (Negative); Ketones Urine Negative (Negative); Leukocyte Esterase Urine Trace (Negative); Nitrite Urine Negative (Negative); Protein Urine Trace (Negative); RBC Urine Automated 0-2 /hpf (0-2); Specific Gravity Urine 1.014 (1.000-1.030); Urobilinogen Urine Negative (Negative); WBC Urine Automated 0-5 /hpf (0-5)
[2024-02-25] MEDS: CHERRY SYRUP 5 ML UDP PO STA (20:11)
[2024-02-25] MEDS: VANCOMYCIN HCL 125 MG/2.5ML SOLN PO STA (20:11)
[2024-02-25 20:46] LABS: Magnesium 1.9 mg/dl (1.7-2.4)
[2024-02-25] MEDS: POTASSIUM CHLORIDE / WTR 10 MEQ/100 ML PLCT IV SCH (21:25)
[2024-02-25] MEDS: LACTATED RINGER'S 1,000 ML IV SCH (22:32)
[2024-02-25 22:34] LABS: Cdiff Toxin B Gene (2yr or >) Positive Cdiff Gene (Neg)
[2024-02-25 22:52] LABS: Adenovirus F 40/41 PCR Not Detected (NotDetected); Astrovirus PCR Not Detected (NotDetected); Campylobacter PCR Not Detected (NotDetected); Cryptosporidium PCR Not Detected (NotDetected); Cyclospora cayetanensis PCR Not Detected (NotDetected); Entamoeba histolytica PCR Not Detected (NotDetected); Enteroaggregative E.coli(EAEC) Not Detected (NotDetected); Enteropathogenic E.coli (EPEC) Not Detected (NotDetected); Enterotoxigenic E.coli (ETEC) Not Detected (NotDetected); Giardia lamblia PCR Not Detected (NotDetected); Norovirus GI/GII PCR Not Detected (NotDetected); Plesiomonas shigelloides PCR Not Detected (NotDetected); Rotavirus A PCR Not Detected (NotDetected); Salmonella PCR Not Detected (NotDetected); Sapovirus PCR Not Detected (NotDetected); Shiga-like Toxin E.coli (STEC) Not Detected (NotDetected); Shigella/Enteroinvasive E.coli Not Detected (NotDetected); Vibrio cholerae PCR Not Detected (NotDetected); Vibrio species PCR Not Detected (NotDetected); Yersinia enterocolitica PCR Not Detected (NotDetected)
[2024-02-25 22:54] LABS: Cdiff Toxin A+B Negative Cdiff Toxin (Negative)
[2024-02-25 23:01] LABS: Cdiff Antigen Positive
[2024-02-26] MEDS ORDERED: ACETAMINOPHEN 325 MG TAB PO PRN (00:49)
[2024-02-26] MEDS ORDERED: LORazepam 0.5 MG TAB PO PRN (00:49)
[2024-02-26] MEDS: FAMOTIDINE 20 MG TAB PO SCH (01:22)
[2024-02-26] MEDS: VANCOMYCIN HCL 125 MG/2.5ML SOLN PO SCH (01:22)
[2024-02-26] MEDS: CHERRY SYRUP 5 ML UDP PO SCH (01:23)
[2024-02-26] MEDS: METOPROLOL SUCC 25MG EXT REL TAB PO SCH (01:23)
[2024-02-26] MEDS: HEPARIN SOD 5,000 UNIT/0.5 ML VIAL SQ SCH (01:25)
[2024-02-26] MEDS: CALCIUM CARBONATE 500 MG CHEWABLE TAB PO PRN (06:13)
[2024-02-26 06:34] LABS: Basophils # (auto) 0.06 K/uL (0.00-0.20); Basophils % (auto) 0.5 %; Eosinophils # (auto) 0.06 K/uL (0.00-0.50); Eosinophils % (auto) 0.5 %; Hematocrit (blood only) 30.4 % (37.0-47.0); Hemoglobin 9.9 g/dl (12.0-16.0); Immature Granulocytes # (auto) 0.04 K/uL (0.01-0.20); Immature Granulocytes % (auto) 0.3 %; Lymphocytes # (auto) 3.23 K/uL (1.20-3.40); Lymphocytes % (auto) 26.8 %; Mean Corpuscular Hemoglobin 27.7 pg (25.0-34.0); Mean Corpuscular Hgb Conc 32.6 g/dL (32.0-36.0); Mean Corpuscular Volume 85.2 fL (80.0-100.0); Mean Platelet Volume 10.2 fL (9.4-12.4); Monocytes % (auto) 6.6 %; Neutrophils # (auto) 7.86 K/uL (1.40-6.50); Neutrophils % (auto) 65.3 %; Platelet Count 227 K/uL (130-400); RDW Coefficient of Variation 14.3 % (11.5-14.5); RDW Standard Deviation 44.1 fL (36.4-46.3); Red Blood Count 3.57 M/uL (4.20-5.40); White Blood Count 12.05 K/ul (4.8-10.8)
[2024-02-26 06:57] LABS: BUN Creatinine Ratio 11.1 (10-20); Calcium 8.6 mg/dl (8.6-10.3); Creatinine Clr Calc Pharmacy 34.6 ml/min; Est GFR (African American) 56.1 ml/min; Est GFR (Non-African American) 48.4 ml/min; Magnesium 1.7 mg/dl (1.7-2.4); Potassium 3.4 mmol/L (3.5-5.1)
[2024-02-26] MEDS: amLODIPine BESYLATE 5 MG TAB PO SCH (08:38)
--- NOTE | 2024-02-26 11:51 | Hospitalist Progress Note ---
Date of Service February 26, 2024 Assessment & Plan (1) Proctocolitis: Plan: Patient returns with lower abd pain and diarrhea Could be a reccurence of her C diff or a smouldering infection of her previous C diff and diverticulitis Recent [place] hospitalization for C. difficile colitis; completed 14-day course of vancomycin Repeat C. difficile also positive A/P CT on arrival revealed nonspecific proctocolitis within the left colon; superimposed acute diverticulitis cannot be excluded Restarted PO vancomycin, added PO Flagyl Some improvement in abd pain and leucocytosis (2) C. difficile colitis: Plan: Recurrent; see #1 (3) Diverticulitis: Plan: Superimposed acute diverticulitis cannot be excluded at this time Will add PO Flagyl 500mg BID (4) Acute kidney injury superimposed on chronic kidney disease: Plan: Avoid nephrotoxics Hold losartan (5) Hypokalemia: Plan: Replace (6) Hypertension: Plan: Continue metoprolol, amlodipine Plan Disposition: Continue hospitalization Full code NPO for now and advance diet as tolerated VTE PPx: Heparin 5000u SQ q12h Admission and Anticipated Discharge Date Admission Date: February 25, 2024 Subjective Patient seen and examined, abdominal pain much improved, no episode of diarrhea today yet. Review of Systems Review of Systems: All systems reviewed are negative, apart from the ones contained in the history. Physical Exam Physical Exam: The patient is awake, alert and oriented 3, well developed and well nourished, normocephalic and atraumatic, lying in bed and in no acute distress. HEENT--PERRL, EOMI, mucous membranes and oropharynx mildly dry Neck--supple. No JVD. No bruits. Thyroid normal, trachea midline, no adenopathy. Heart--normal S1 and S2. No murmurs, rubs or gallops. Lungs--clear bilaterally, no respiratory distress, no accessory muscle use. Abdomen--normal bowel sounds and soft. Extremities--no cyanosis or clubbing. No edema. Dermatologic--normal skin turgor, normal color, no abnormal lymph nodes, no rash. Neurologic--cranial nerves II through XII grossly intact. Rheumatologic--normal range of motion. Psychiatric--normal affect. Results & Data Results & Data Vital Signs (Past 12 Hours) Vital Signs Temp Pulse Pulse Pulse Resp BP BP 02/26/24 11:34 98.4 F 69 18 143/51 H 02/26/24 07:42 98.6 F 72 17 152/71 H 02/26/24 05:48 62 02/26/24 02:43 98.1 F 63 14 130/74 02/26/24 02:00 70 02/26/24 01:14 02/26/24 00:49 98.1 F 72 18 170/70 H 02/26/24 00:49 Pulse Ox Pulse Ox O2 Del Method O2 Del Method 02/26/24 11:34 98 Room Air 02/26/24 07:42 94 Room Air 02/26/24 05:48 02/26/24 02:43 98 Room Air 02/26/24 02:00 02/26/24 01:14 Room Air 02/26/24 00:49 02/26/24 00:49 97 Room Air PG Care Time/CCT Total # of Minutes Spent Total Time Spent with Patient: Total time spent is greater than 50% in coordination of care (as documented) at patient's floor/unit and/or counseling patient: Coding Level of Care Code 32260 SUB INP/OBS CARE 2MIN Diagnoses Proctocolitis K52.9 C. difficile colitis A04.72 Diverticulitis K57.92 Acute kidney injury superimposed on chronic kidney disease N17.9; N18.9 Hypokalemia E87.6 Hypertension I10 Time Spent (min) 35
--- NOTE | 2024-02-26 12:01 | Infectious Disease Consult ---
Date of Consultation February 26, 2024 Assessment & Plan (1) Proctocolitis: (2) Abdominal pain, lower: Plan This is an 78-year-old female with a past medical history of GERD, fibromyalgia, diverticulitis, gallstone pancreatitis (07/2023), chronic cholecystitis status post lap cholecystectomy, admitted 01/03 - 01/10 with acute diverticulitis (treated with ceftriaxone/Flagyl--> Unasyn inpatient)and discharged on Augmentin who then presented 01/18 - 01/28 with abdominal pain, diarrhea, fevers and diagnosed with C. difficile colitis. CTAP at the time w/ findings concerning for nonspecific proctocolitis of the left colon, advanced colon diverticulosis without acute diverticulitis. She completed a 14-day course of oral vancomycin on 02/02. On therapy she reports intermittent abdominal cramping, but less frequent stools. Stools were soft to loose but not watery. Post therapy she complained of mild bilateral lower quadrant abdominal cramping and bloating. She was seen by GI in follow-up on 02/11. She returns to the ED on 02/24 with decreased p.o. intake, increased abdominal pain and cramping.. Stools are soft. She denied diarrhea. She noted low-grade temperatures at 99.9 as welll as increased urination without dysuria, hematuria, or back pain. In the ED she was afebrile, HR 78, RR 17, blood pressure 173/82, 98% O2 sats on room air. Labs: WBC 16.23, BUN 18, creatinine 1.38. UA without nitrites, trace leukocyte esterase, 0-5 WBC, no bacteria seen. CTAP showed a nonspecific proctocolitis within the left colon which has slightly improved. There were 2 adjacent inflamed diverticulum within the proximal sigmoid colon with mild surrounding fat stranding. No evidence of bowel obstruction. GI PCR panel negative except for positive C. difficile gene, negative C. difficile toxin a and B and C. difficile PCR positive, concerning for C diff carrier state. She was started on oral vancomycin and Flagyl. ID consulted for possible recurrent C. difficile. On my initial exam she complains of abdominal pain and soft stools. She denies fever, chills, sweats. She denies nausea or vomiting. She has po appetite. She reports some tick exposures in the last few months. Of note in December 2023, Lyme screen and confirmatory testing positive. She denies treatment in the past for Lyme disease. 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 02/24ongoing Metronidazole 02/25 It is unclear if her presentation represents relapse or recurrence of C. difficile infection. C. difficile testing is consistent with C. difficile colonization/carrier state. However given her abdominal pain,continued pancolitis on imaging ( although improved), leukocytosis on admission, would treat as a possible second C. difficile episode.There are 2 adjacent inflamed diverticulum within the proximal sigmoid colon with mild surrounding fat stranding. This may may be 2/2 superimposed acute diverticulitis but likely corresponds to the suspected proctocolitis She has urine frequency in the setting of lower abdominal pain, however her urinalysis is not consistent with infection. She denies hematuria or dysuria. Lyme testing in late December 2023 positive for Lyme on screen and confirmation testing. She admits to tick exposure, but has never been treated for Lyme disease. Recommendations: Discontinued oral vancomycin and started fidaxomicin 200 mg p.o. every 12 hours for the possible second episode of C. difficile. Anticipate 10 days of therapy. Discontinued Flagyl Started doxycycline 100 mg p.o. every 12 hours for 14 days for untreated Lyme disease. Will monitor clinically. If her abdominal pain persists and stool does not become more formed. Will consider possible superimposed diverticulitis. Thank you for this consult. ID will continue to follow Rica Dickey MD, MPH Infectious Disease [facility], [facility] Call [phone] with questions. Consultation Information Consultation was provided via telemedicine using two-way real-time interactive telecommunication between the patient and the telemedicine provider. For the duration of the visit, the provider was performing the assessment from a different facility than the patient. This includesuse of bluetooth stethoscope forauscultationperformed by the telepresenter that the telemedicine provider can hear if described in the physical exam. [employer] Representative contact information: Please call [facility] [phone]. (Phone Number For Physician Use Only) After establishing a telemedicine visit, patient was: Patient was verified with two unique identifiers Time Spent with Patient: Initial => 75 min History of Present Illness Reason for Consultation: ? recurrent C difficile Requesting Physician: JAMISON Wagner Attending Physician: Bonnie Beavers MD History of Present Illness This is an 78-year-old female with a past medical history of GERD, fibromyalgia, diverticulitis, gallstone pancreatitis (07/2023), chronic cholecystitis status post lap cholecystectomy, admitted 01/03 - 01/10 with acute diverticulitis (treated with ceftriaxone/Flagyl--> Unasyn inpatient)and discharged on Augmentin who then presented 01/18 - 01/28 with abdominal pain, diarrhea, fevers and diagnosed with C. difficile colitis. CTAP at the time w/ findings concerning for nonspecific proctocolitis of the left colon, advanced colon diverticulosis without acute diverticulitis. She completed a 14-day course of oral vancomycin on 02/02. On therapy she reports intermittent abdominal cramping, but less frequent stools. Stools were soft to loose but not watery. Post therapy she complained of mild bilateral lower quadrant abdominal cramping and bloating. She was seen by GI in follow-up on 02/11. She returns to the ED on 02/24 with decreased p.o. intake, increased abdominal pain and cramping.. Stools are soft. She denied diarrhea. She noted low-grade temperatures at 99.9 as welll as increased urination without dysuria, hematuria, or back pain. In the ED she was afebrile, HR 78, RR 17, blood pressure 173/82, 98% O2 sats on room air. Labs: WBC 16.23, BUN 18, creatinine 1.38. UA without nitrites, trace leukocyte esterase, 0-5 WBC, no bacteria seen. CTAP showed a nonspecific proctocolitis within the left colon which has slightly improved. There were 2 adjacent inflamed diverticulum within the proximal sigmoid colon with mild surrounding fat stranding. No evidence of bowel obstruction. GI PCR panel negative except for positive C. difficile gene, negative C. difficile toxin a a nd B and C. difficile PCR positive, concerning for C diff carrier state. She was started on oral vancomycin and Flagyl. ID consulted for possible recurrent C. difficile. On my initial exam she complains of abdominal pain and soft stools. She denies fever, chills, sweats. She denies nausea or vomiting. She has po appetite. She reports some tick exposures in the last few months. Of note in December 2023, Lyme screen and confirmatory testing positive. She denies treatment in the past for Lyme disease. Allergies Allergy/AdvReac Type Severity Reaction Status Date / Time atropine [From ] Allergy Intermediate Hives Verified 02/25/24 17:54 cimetidine [From Tagamet] Allergy Intermediate Hives Verified 02/25/24 17:54 hyoscyamine [From ] Allergy Intermediate Hives Verified 02/25/24 17:54 Iodinated Contrast Media Allergy Intermediate Hives Verified 02/25/24 17:54 [Iodinated Contrast- Oral and IV Dye] nitrofurantoin Allergy Intermediate Rash Verified 02/25/24 17:54 [From Macrobid] phenobarbital [From ] Allergy Intermediate Hives Verified 02/25/24 17:54 regadenoson Allergy Intermediate loss of Verified 02/25/24 17:54 vision, low Blood pressure scopolamine [From ] Allergy Intermediate Hives Verified 02/25/24 17:54 ketoprofen [From Orudis] Allergy Mild Rash Verified 02/25/24 17:54 diltiazem AdvReac Intermediate Hallucinati Verified 02/25/24 17:54 ng doxepin AdvReac Intermediate Hallucinati Verified 02/25/24 17:54 ng doxycycline AdvReac Intermediate Heartburn Verified 02/25/24 17:54 duloxetine [From Cymbalta] AdvReac Intermediate Swelling Verified 02/25/24 17:54 hydrocodone AdvReac Intermediate Dizziness Verified 02/25/24 17:54 lisinopril [From Zestril] AdvReac Intermediate Swelling Verified 02/25/24 17:54 pantoprazole [From Protonix] AdvReac Intermediate Dizziness Verified 02/25/24 17:54 Home Medications Medication Instructions Recorded Confirmed Type lorazepam 0.5 mg tablet 0.5 mg PO DAILY PRN Anxiety 04/14/21 02/25/24 History metoprolol succinate 25 mg 25 mg PO BID 04/14/21 02/25/24 History tablet,extended release 24 hr acetaminophen 500 mg tablet 1,000 mg PO Q6H PRN Back Pain 04/27/21 02/25/24 History (Tylenol Extra Strength) ergocalciferol (vitamin D2) 1,250 50,000 unit PO MONTHLY 05/13/23 02/25/24 History mcg (50,000 unit) capsule losartan 100 mg tablet 100 mg PO QAM 05/13/23 02/25/24 History amlodipine 10 mg tablet 10 mg PO DAILY 08/05/23 02/25/24 History furosemide 20 mg tablet 40 mg (2 x 20 mg) PO DAILY Fluid 08/19/23 02/25/24 Rx Retention #1 tab famotidine 20 mg tablet 20 mg PO BID #60 tabs 01/29/24 02/25/24 Rx oxycodone 5 mg tablet 5 mg PO Q6H PRN pain, moderate #15 01/29/24 02/25/24 Rx tabs Patient History Medical History Chronic kidney disease, stage III (moderate) GERD without esophagitis Hx of cardiac murmur Scleroderma Diverticulitis Peripheral vascular disease Depression Fibromyalgia GERD (gastroesophageal reflux disease) Spinal stenosis Anxiety Secondary hyperparathyroidism Positive NAREN (antinuclear antibody) Hyperkalemia Hypercalcemia Anemia Surgical History History of left cataract extraction History of dilatation and curettage History of esophagogastroduodenoscopy (EGD) History of breast biopsy History of hysterectomy History of appendectomy History of tonsillectomy H/O colonoscopy Family History Other No known health problems Social History Smoking Status: Never smoker Second Hand Exposure: No; Do You Dip or Chew Tobacco: No; Hx Alcohol Use: No Hx Substance Use: No Preferred Language: Upper Sorbian Communication Ability: Effective Patient Office Rep Required: No Beliefs That Will Affect Care: None Current Living Situation: Spouse current occupational status: retired Feels Safe at Home: Yes Safety Concerns: Feels Safe At This Time Assistive Devices: Brace/Splint/Immobilizer, Cane and Walker Review of System A 10 point ROS obtained. Pertinent positives as per HPI. Physical Exam Physical Exam: Gen- NAD HEENT- Anicteric sclera Neck- supple Lung- No increased work of breathing. Abdomen- Soft. RLQ, RUQ and LLQ tenderness - No CVA tenderness Ext- No edema Neuro-AAO*3 Psych- Normal mood Results & Data Vital Signs (Past 12 Hours) Vital Signs Temp Pulse Pulse Pulse Resp BP BP 02/26/24 11:34 36.9 C 69 18 143/51 H 02/26/24 07:42 37 C 72 17 152/71 H 02/26/24 05:48 62 02/26/24 02:43 36.7 C 63 14 130/74 02/26/24 02:00 70 02/26/24 01:14 02/26/24 00:49 36.7 C 72 18 170/70 H 02/26/24 00:49 Pulse Ox Pulse Ox O2 Del Method O2 Del Method 02/26/24 11:34 98 Room Air 02/26/24 07:42 94 Room Air 02/26/24 05:48 02/26/24 02:43 98 Room Air 02/26/24 02:00 02/26/24 01:14 Room Air 02/26/24 00:49 02/26/24 00:49 97 Room Air Laboratory Results Laboratory Results - last 48 hr 02/25/24 02/25/24 02/25/24 17:16 17:52 19:20 WBC Cancelled 16.23 H RBC Cancelled 3.74 L Hgb Cancelled 10.4 L Hct Cancelled 31.5 L MCV Cancelled 84.2 MCH Cancelled 27.8 MCHC Cancelled 33.0 RDW Std Deviation Cancelled 44.2 RDW Coeff of Jordi Cancelled 14.3 Plt Count Cancelled 249 MPV Cancelled 9.8 Immature Gran % (Auto) Cancelled 0.4 Neut % (Auto) Cancelled 72.7 Lymph % (Auto) Cancelled 18.6 [place] % (Auto) Cancelled 7.6 Eos % (Auto) Cancelled 0.2 Baso % (Auto) Cancelled 0.5 Neut # (Auto) Cancelled 11.79 H Lymph # (Auto) Cancelled 3.02 [place] # (Auto) Cancelled 1.24 H Eos # (Auto) Cancelled 0.04 Baso # (Auto) Cancelled 0.08 Immature Gran # (Auto) Cancelled 0.06 Absolute Nucleated RBC Cancelled Nucleated RBC % (auto) Cancelled Neutrophils % (Manual) Cancelled Band Neutrophils % Cancelled Lymphocytes % (Manual) Cancelled Prolymphocyte % Cancelled Reactive Lymphs % (Man) Cancelled Monocytes % (Manual) Cancelled Eosinophils % (Manual) Cancelled Basophils % (Manual) Cancelled Metamyelocytes % (Man) Cancelled Myelocytes % (Man) Cancelled Promyelocytes % (Man) Cancelled Blast Cells % (Manual) Cancelled Plasma Cell % (Manual) Cancelled Other Cells % Cancelled Nucleated RBC % Cancelled Neutrophils # (Manual) Cancelled Band Neutrophils # Cancelled Total Absolute Neuts Cancelled Lymphocytes # (Manual) Cancelled Prolymphocyte # Cancelled Reactive Lymphs # Cancelled Total Abs Lymphocytes Cancelled Monocytes # (Manual) Cancelled Eosinophils # (Manual) Cancelled Basophils # (Manual) Cancelled Metamyelocytes # (Man) Cancelled Myelocytes # (Manual) Cancelled Promyelocytes # (Man) Cancelled Blast Cells # (Man) Cancelled Plasma Cell # (Manual) Cancelled Other Cells # Cancelled Nucleated RBCs # (Man) Cancelled Hypersegmented Neuts Cancelled Hyposegmented Neuts Cancelled Hypogranular Neuts Cancelled Large Granular Lymphs Cancelled # Lrg Granular Lymphs Cancelled Hairy Cells Cancelled Smudge Cells Cancelled Toxic Granulation Cancelled Toxic Vacuolation Cancelled Dohle Bodies Cancelled Tj Rods Cancelled Platelet Estimate Cancelled Hypogranular Platelets Cancelled Giant Platelets Cancelled Platelet Satelliting Cancelled RBC Morphology Cancelled Polychromasia Cancelled Hypochromasia Cancelled Poikilocytosis Cancelled Basophilic Stippling Cancelled Anisocytosis Cancelled Microcytosis Cancelled Macrocytosis Cancelled Spherocytes Cancelled Pappenheimer Bodies Cancelled Sickle Cells Cancelled Target Cells Cancelled Tear Drop Cells Cancelled Ovalocytes Cancelled Stomatocytes Cancelled Alva-Pringle Bodies Cancelled Echinocytes Cancelled Acanthocytes (Spur) Cancelled Rouleaux Cancelled RBC Agglutinates Cancelled Schistocytes Cancelled Sezary Cell Cancelled Sodium 138 Potassium 3.3 L Chloride 100 Carbon Dioxide 28 Anion Gap 10 BUN 18 Creatinine 1.38 H Est Cr Clr Drug Dosing 27.3 Est GFR ( Amer) 41.7 Est GFR (Non-Af Amer) 36.0 BUN/Creatinine Ratio 13.0 Glucose 107 H Calcium 9.7 Magnesium 1.9 Total Bilirubin 0.6 AST 16 ALT 6 L Alkaline Phosphatase 81 Total Protein 7.6 Albumin 4.2 Globulin 3.4 Albumin/Globulin Ratio 1.2 Urine Color Yellow Urine Appearance Clear Urine pH 7.0 Ur Specific [place] 1.014 Urine Protein Trace H Urine Glucose (UA) Negative Urine Ketones Negative Urine Blood Negative Urine Nitrite Negative Urine Bilirubin Negative Urine Urobilinogen Negative Ur Leukocyte Esterase Trace H Urine WBC (Auto) 0-5 Urine RBC (Auto) 0-2 U Hyaline Cast (Auto) 0-2 U Epithel Cells (Auto) 0-2 Urine Bacteria (Auto) None Seen Stl C. cayetanensis PCR Stool Rotavirus A PCR Stl Adenov F PCR Stool Astrovirus (PCR) Stool Campylobacter PCR Stl C. diff Tox B Gene Stl C.difficile Tox A&B Stool Cryptosporidium PCR Stl E.coli Shiga Tox PCR Stl Enterotoxigenic E PCR Stool EPEC (PCR) Stool EAEC (PCR) Stl E. histolytica PCR Stool Giardia Lamblia PCR Stool Salmonella PCR Stool Sapovirus (PCR) Stl P. shigelloides PCR Stl Shigella/EIEC PCR St Y.enterocolitica PCR Stool Vibrio (PCR) Stl Vibrio cholerae PCR Stl Norovirus GI/GII PCR Blood Parasites ID Cancelled 02/25/24 02/26/24 21:25 06:08 WBC 12.05 H RBC 3.57 L Hgb 9.9 L Hct 30.4 L MCV 85.2 MCH 27.7 MCHC 32.6 RDW Std Deviation 44.1 RDW Coeff of Jordi 14.3 Plt Count 227 MPV 10.2 Immature Gran % (Auto) 0.3 Neut % (Auto) 65.3 Lymph % (Auto) 26.8 [place] % (Auto) 6.6 Eos % (Auto) 0.5 Baso % (Auto) 0.5 Neut # (Auto) 7.86 H Lymph # (Auto) 3.23 [place] # (Auto) 0.80 H Eos # (Auto) 0.06 Baso # (Auto) 0.06 Immature Gran # (Auto) 0.04 Absolute Nucleated RBC Nucleated RBC % (auto) Neutrophils % (Manual) Band Neutrophils % Lymphocytes % (Manual) Prolymphocyte % Reactive Lymphs % (Man) Monocytes % (Manual) Eosinophils % (Manual) Basophils % (Manual) Metamyelocytes % (Man) Myelocytes % (Man) Promyelocytes % (Man) Blast Cells % (Manual) Plasma Cell % (Manual) Other Cells % Nucleated RBC % Neutrophils # (Manual) Band Neutrophils # Total Absolute Neuts Lymphocytes # (Manual) Prolymphocyte # Reactive Lymphs # Total Abs Lymphocytes Monocytes # (Manual) Eosinophils # (Manual) Basophils # (Manual) Metamyelocytes # (Man) Myelocytes # (Manual) Promyelocytes # (Man) Blast Cells # (Man) Plasma Cell # (Manual) Other Cells # Nucleated RBCs # (Man) Hypersegmented Neuts Hyposegmented Neuts Hypogranular Neuts Large Granular Lymphs # Lrg Granular Lymphs Hairy Cells Smudge Cells Toxic Granulation Toxic Vacuolation Dohle Bodies Tj Rods Platelet Estimate Hypogranular Platelets Giant Platelets Platelet Satelliting RBC Morphology Polychromasia Hypochromasia Poikilocytosis Basophilic Stippling Anisocytosis Microcytosis Macrocytosis Spherocytes Pappenheimer Bodies Sickle Cells Target Cells Tear Drop Cells Ovalocytes Stomatocytes Alva-Pringle Bodies Echinocytes Acanthocytes (Spur) Rouleaux RBC Agglutinates Schistocytes Sezary Cell Sodium 141 Potassium 3.4 L Chloride 106 Carbon Dioxide 31 Anion Gap 4 BUN 12 Creatinine 1.08 D Est Cr Clr Drug Dosing 34.6 Est GFR ( Amer) 56.1 Est GFR (Non-Af Amer) 48.4 BUN/Creatinine Ratio 11.1 Glucose 92 Calcium 8.6 Magnesium 1.7 Total Bilirubin AST ALT Alkaline Phosphatase Total Protein Albumin Globulin Albumin/Globulin Ratio Urine Color Urine Appearance Urine pH Ur Specific [place] Urine Protein Urine Glucose (UA) Urine Ketones Urine Blood Urine Nitrite Urine Bilirubin Urine Urobilinogen Ur Leukocyte Esterase Urine WBC (Auto) Urine RBC (Auto) U Hyaline Cast (Auto) U Epithel Cells (Auto) Urine Bacteria (Auto) Stl C. cayetanensis PCR Not Detected Stool Rotavirus A PCR Not Detected Stl Adenov F 40/41 PCR Not Detected Stool Astrovirus (PCR) Not Detected Stool Campylobacter PCR Not Detected Stl C. diff Tox B Gene Positive Cdiff Gene H Stl C.difficile Tox A&B Negative Cdiff Toxin Stool Cryptosporidium PCR Not Detected Stl E.coli Shiga Tox PCR Not Detected Stl Enterotoxigenic E PCR Not Detected Stool EPEC (PCR) Not Detected Stool EAEC (PCR) Not Detected Stl E. histolytica PCR Not Detected Stool Giardia Lamblia PCR Not Detected Stool Salmonella PCR Not Detected Stool Sapovirus (PCR) Not Detected Stl P. shigelloides PCR Not Detected Stl Shigella/EIEC PCR Not Detected St Y.enterocolitica PCR Not Detected Stool Vibrio (PCR) Not Detected Stl Vibrio cholerae PCR Not Detected Stl Norovirus GI/GII PCR Not Detected Blood Parasites ID Diagnostic Findings Abdomen/Pelvis CT 02/25/24 15:[address] WITHOUT CONTRAST CT DOSE: 468.75 mGy.cm HISTORY: lower abd cramping, nausea TECHNIQUE: Multiaxial CT images of the abdomen and pelvis were performed without contrast. A dose lowering technique was utilized adhering to the principles of ALARA. COMPARISON STUDY: Abdomen and pelvis CT 01/19/2024. FINDINGS: There are small bilateral pleural effusions with associated mild compressive atelectasis within the lower lobes. No pneumoperitoneum. No pneumatosis. No acute fractures. Prior cholecystectomy. Stable 12 mm hypodense lesion within the liver. This favors a cyst. The unenhanced spleen, adrenal glands, and pancreas are unremarkable. No renal stones or hydronephrosis. Moderate calcified plaque within the normal caliber abdominal aorta. No retroperitoneal or pelvic lymphadenopathy. The bladder is unremarkable. Prior hysterectomy. Trace pelvic free fluid. There is mild circumferential thickening involving the descending colon, sigmoid colon, and rectum with mild pericolonic fat stranding. This has slightly improved in the interval and is consistent with a nonspecific proctocolitis. There are 2 adjacent inflamed diverticulum within the proximal sigmoid colon with mild surrounding fat stranding best seen on image 250. This may correspond to the suspected proctocolitis. A superimposed acute diverticulitis is not excluded. No perforation or abscess identified. The appendix is surgically absent. IMPRESSION: 1. Above findings consistent with a nonspecific proctocolitis within the left colon. This has slightly improved. 2. There are 2 adjacent inflamed diverticulum within the proximal sigmoid colon with mild surrounding fat stranding. This may correspond to the suspected proctocolitis. A superimposed acute diverticulitis is not excluded. No perforation or abscess at this time. 3. No evidence for bowel obstruction. 4. Postoperative changes as described above. 5. Small bilateral pleural effusions. ACT 112: Negative or not required by law. Electronically signed by: Mukesh Nicholson M.D. 02/25/2024 6:04 PM Medications Administered Home Medications Medication Instructions Recorded Confirmed Last Taken lorazepam 0.5 mg tablet 0.5 mg PO DAILY PRN Anxiety 04/14/21 02/25/24 05/22/23 07:30 metoprolol succinate 25 mg 25 mg PO BID 04/14/21 02/25/24 02/25/24 08:00 tablet,extended release 24 hr acetaminophen 500 mg tablet 1,000 mg PO Q6H PRN Back Pain 04/27/21 02/25/24 08/21/21 (Tylenol Extra Strength) ergocalciferol (vitamin D2) 1,250 50,000 unit PO MONTHLY 05/13/23 02/25/24 Unknown mcg (50,000 unit) capsule losartan 100 mg tablet 100 mg PO QAM 05/13/23 02/25/24 02/25/24 amlodipine 10 mg tablet 10 mg PO DAILY 08/05/23 02/25/24 02/25/24 furosemide 20 mg tablet 40 mg (2 x 20 mg) PO DAILY Fluid 08/19/23 02/25/24 02/25/24 Retention #1 tab famotidine 20 mg tablet 20 mg PO BID #60 tabs 01/29/24 02/25/24 02/25/24 08:00 oxycodone 5 mg tablet 5 mg PO Q6H PRN pain, moderate #15 01/29/24 02/25/24 Unknown tabs Active Medications Generic Name Dose Route Start Last Admin Trade Name Freq PRN Reason Stop Dose Admin Amlodipine Besylate 10 mg 02/26/24 09:00 02/26/24 08:38 Amlodipine Besylate 5 Mg Tab PO 03/27/24 08:59 10 mg DAILY JAYLIN Administration Calcium Carbonate 1,500 mg 02/26/24 06:02 02/26/24 06:13 Calcium Carbonate 500 Mg Chewable Tab PO 03/27/24 06:01 1,500 mg Q6H PRN Administration Indigestion Dorado Syrup 5 ml 02/26/24 00:49 02/26/24 11:08 Dorado Syrup 5 Ml Udp PO 03/07/24 00:48 5 ml Q6 JAYLIN Administration Famotidine 20 mg 02/26/24 00:49 02/26/24 08:37 Famotidine 20 Mg Tab PO 03/27/24 00:48 20 mg BID JAYLIN Administration Heparin Sodium (Porcine) 5,000 units 02/26/24 00:49 02/26/24 08:38 Heparin Sod 5,000 Unit/0.5 Ml Vial SQ 03/27/24 00:48 5,000 units Q12 JAYLIN Administration Lactated Ringer's 1,000 mls @ 100 mls/hr 02/25/24 21:45 02/26/24 07:27 Lr IV 02/26/24 17:44 100 mls/hr .Q10H JAYLIN Administration Metoprolol Succinate 25 mg 02/26/24 00:49 02/26/24 08:38 Metoprolol Succ 25mg Ext Rel Tab PO 03/27/24 00:48 25 mg BID JAYLIN Administration Vancomycin HCl 125 mg 02/26/24 00:49 02/26/24 11:08 Vancomycin Hcl 125 Mg/2.5ml Soln PO 03/07/24 00:48 125 mg Q6 JAYLIN Administration
[2024-02-26] MEDS ORDERED: Nursing to Pharmacy Communication SCH (12:30)
[2024-02-26] MEDS: DOXYCYCLINE HYCLATE 100 MG CAP PO SCH (12:44)
[2024-02-26] MEDS: FIDAXOMICIN 200 MG TAB PO SCH (12:44)
--- NOTE | 2024-02-26 15:51 | Gastrointestinal Consultation ---
<Statement entered by Nida Garcia MD - 02/26/24 17:12> I have examined the patient, reviewed the History & Physical and in the interval since the performance of the History & Physical I have noted the following changes of clinical significance: no changes noted. I agree with the documentation provided by JAMISON Trevino with no additional comments. Dificid is quite costly for the patient. Recommend treating with IV abx for diverticulitis. Ok to treat w dificid while in house since its been started as prevention for recurrent C diff but please transition to PO vancomycin on discharge. Date of Consultation February 26, 2024 Assessment & Plan (1) Proctocolitis: C diff testing negative this admission; CT concerning for proctocolitis vs diverticulitis. Considering patient is currently being treated with Dificid by the primary team, we could consider treating patient with antibiotics for diverticulitis in the interim and assessing for improvement of her pain. If pain worsens, consider a CT enhanced with po contrast. History of Present Illness Reason for Consultation: C diff recurrence Attending Physician: Bonnie Beavers MD History of Present Illness Patient is an 78 yo female with PMH of C diff, diverticulitis, HTN, fibromyalgia, HLD, depression, scleroderma, Vitamin D deficiency, & CKD3. She presented to the ED on 02/25/24 with abdominal pain, occasional loose stools, & fever. She was hospitalized in December and early January for C diff. She completed a 14 day course of po Vanco per ID recs. She notes that 1 week ago she developed abdominal pain that was in the LLQ and suprapubic region. The pain is intermittent and worsened to the point where she was directed to seek ED eval uation by Elvie BARKLEY. She had been having meaningful improvement of her C diff infection with having "mushy" but formed stool. She notes that her current pain was exacerbated by moving her bowels and eating. CT imaging suggestive of a proctocolitis vs diverticulitis. It appears she is currently on Dificid. Stool PCR was obtained by her primary service and she was noted to have a positive gene for C diff, but negative toxin. Allergies Allergy/AdvReac Type Severity Reaction Status Date / Time atropine [From ] Allergy Intermediate Hives Verified 02/25/24 17:54 cimetidine [From Tagamet] Allergy Intermediate Hives Verified 02/25/24 17:54 hyoscyamine [From ] Allergy Intermediate Hives Verified 02/25/24 17:54 Iodinated Contrast Media Allergy Intermediate Hives Verified 02/25/24 17:54 [Iodinated Contrast- Oral and IV Dye] nitrofurantoin Allergy Intermediate Rash Verified 02/25/24 17:54 [From Macrobid] phenobarbital [From ] Allergy Intermediate Hives Verified 02/25/24 17:54 regadenoson Allergy Intermediate loss of Verified 02/25/24 17:54 vision, low Blood pressure scopolamine [From ] Allergy Intermediate Hives Verified 02/25/24 17:54 ketoprofen [From Orudis] Allergy Mild Rash Verified 02/25/24 17:54 diltiazem AdvReac Intermediate Hallucinati Verified 02/25/24 17:54 ng doxepin AdvReac Intermediate Hallucinati Verified 02/25/24 17:54 ng doxycycline AdvReac Intermediate Heartburn Verified 02/25/24 17:54 duloxetine [From Cymbalta] AdvReac Intermediate Swelling Verified 02/25/24 17:54 hydrocodone AdvReac Intermediate Dizziness Verified 02/25/24 17:54 lisinopril [From Zestril] AdvReac Intermediate Swelling Verified 02/25/24 17:54 pantoprazole [From Protonix] AdvReac Intermediate Dizziness Verified 02/25/24 17:54 Home Medications Medication Instructions Recorded Confirmed Type lorazepam 0.5 mg tablet 0.5 mg PO DAILY PRN Anxiety 04/14/21 02/25/24 History metoprolol succinate 25 mg 25 mg PO BID 04/14/21 02/25/24 History tablet,extended release 24 hr acetaminophen 500 mg tablet 1,000 mg PO Q6H PRN Back Pain 04/27/21 02/25/24 History (Tylenol Extra Strength) ergocalciferol (vitamin D2) 1,250 50,000 unit PO MONTHLY 05/13/23 02/25/24 History mcg (50,000 unit) capsule losartan 100 mg tablet 100 mg PO QAM 05/13/23 02/25/24 History amlodipine 10 mg tablet 10 mg PO DAILY 08/05/23 02/25/24 History furosemide 20 mg tablet 40 mg (2 x 20 mg) PO DAILY Fluid 08/19/23 02/25/24 Rx Retention #1 tab famotidine 20 mg tablet 20 mg PO BID #60 tabs 01/29/24 02/25/24 Rx oxycodone 5 mg tablet 5 mg PO Q6H PRN pain, moderate #15 01/29/24 02/25/24 Rx tabs Patient History Medical History Chronic kidney disease, stage III (moderate) GERD without esophagitis Hx of cardiac murmur Scleroderma Diverticulitis Peripheral vascular disease Depression Fibromyalgia GERD (gastroesophageal reflux disease) Spinal stenosis Anxiety Secondary hyperparathyroidism Positive NAREN (antinuclear antibody) Hyperkalemia Hypercalcemia Anemia Surgical History History of left cataract extraction History of dilatation and curettage History of esophagogastroduodenoscopy (EGD) History of breast biopsy History of hysterectomy History of appendectomy History of tonsillectomy H/O colonoscopy Family History Other No known health problems Social History Smoking Status: Never smoker Second Hand Exposure: No; Do You Dip or Chew Tobacco: No; Hx Alcohol Use: No Hx Substance Use: No Preferred Language: Occitan Communication Ability: Effective Laborer/Key Man Required: No Beliefs That Will Affect Care: None Current Living Situation: Spouse current occupational status: retired Feels Safe at Home: Yes Safety Concerns: Feels Safe At This Time Assistive Devices: Brace/Splint/Immobilizer, Cane and Walker Review of Systems Constitutional: no fever and no chills Respiratory: no cough and no dyspnea Cardiovascular: no chest pain Gastrointestinal: + abdominal pain; no coffee ground emesi s, no hematemesis, no blood in stools and no melena Psychiatric: no problem reported Physical Exam Constitutional: well developed Respiratory: normal respiratory effort Cardiovascular: Rate/Rhythm: regular rate Gastrointestinal (Abdomen): Inspection/Auscultation: abdomen normal to inspection Percussion/Palpation: + abdomen tender and abdomen soft Psychiatric: Orientation: alert and oriented x 3 Results & Data Vital Signs (Past 12 Hours) Vital Signs Temp Pulse Pulse Resp BP BP Pulse Ox 02/26/24 15:41 36.7 C 69 18 145/65 H 98 02/26/24 13:00 70 02/26/24 11:34 36.9 C 69 18 143/51 H 98 02/26/24 07:42 37 C 72 17 152/71 H 94 02/26/24 05:48 62 O2 Del Method 02/26/24 15:41 Room Air 02/26/24 13:00 02/26/24 11:34 Room Air 02/26/24 07:42 Room Air 02/26/24 05:48 PG Care Time/CCT Total # of Minutes Spent Total Time Spent with Patient: Total time spent is greater than 50% in coordination of care (as documented) at patient's floor/unit and/or counseling patient: Coding Level of Care Code 02131 INT INP/OBS CARE 3/75MIN Diagnoses Proctocolitis K52.9
[2024-02-26] MEDS: metroNIDAZOLE 500 MG/100 ML BAG IV SCH (16:46)
[2024-02-26] MEDS: CIPROFLOXACIN / D5W 400 MG/200 ML BAG IV SCH (16:46)
[2024-02-26] MEDS ORDERED: metroNIDAZOLE 500 MG TAB PO SCH (21:00)
[2024-02-26] MEDS ORDERED: CIPROFLOXACIN / D5W 200 MG/100 ML BAG IV SCH (21:00)
[2024-02-26] MEDS: ONDANSETRON INJ 2 MG/ML 2 ML VIAL IV PRN (21:22)
[2024-02-27 08:19] LABS: Basophils # (auto) 0.06 K/uL (0.00-0.20); Basophils % (auto) 0.6 %; Eosinophils # (auto) 0.05 K/uL (0.00-0.50); Eosinophils % (auto) 0.5 %; Hematocrit (blood only) 34.4 % (37.0-47.0); Hemoglobin 11.3 g/dl (12.0-16.0); Immature Granulocytes # (auto) 0.03 K/uL (0.01-0.20); Immature Granulocytes % (auto) 0.3 %; Lymphocytes # (auto) 2.36 K/uL (1.20-3.40); Lymphocytes % (auto) 22.1 %; Mean Corpuscular Hemoglobin 28.3 pg (25.0-34.0); Mean Corpuscular Hgb Conc 32.8 g/dL (32.0-36.0); Mean Corpuscular Volume 86.2 fL (80.0-100.0); Monocytes # (auto) 0.68 K/uL (0.11-0.59); Monocytes % (auto) 6.4 %; Neutrophils # (auto) 7.48 K/uL (1.40-6.50); Neutrophils % (auto) 70.1 %; Platelet Count 243 K/uL (130-400); RDW Standard Deviation 44.2 fL (36.4-46.3); Red Blood Count 3.99 M/uL (4.20-5.40); White Blood Count 10.66 K/ul (4.8-10.8)
[2024-02-27 08:34] LABS: BUN Creatinine Ratio 8.6 (10-20); Calcium 8.5 mg/dl (8.6-10.3); Creatinine Clr Calc Pharmacy 35.3 ml/min; Est GFR (African American) 58.1 ml/min; Est GFR (Non-African American) 50.1 ml/min; Magnesium 1.5 mg/dl (1.7-2.4); Potassium 2.9 mmol/L (3.5-5.1)
--- NOTE | 2024-02-27 11:31 | Gastroenterology Progress Note ---
<Statement entered by Nida Garcia MD - 02/27/24 15:21> I have examined the patient, reviewed the History & Physical and in the interval since the performance of the History & Physical I have noted the following changes of clinical significance: no changes noted. I agree with the documentation provided by JAMISON Trevino with no additional comments. Dificid outpatient would be very expensive; switch to vanco if we continue cdiff ppx post-d/c. Date of Service February 27, 2024 Assessment & Plan (1) Acute diverticulitis: Plan: -Continue IV Cipro & Flagyl -She is on a liquid diet at present -Add Miralax due to constipation concerns (2) C. difficile colitis: Plan: -Patient's testing does not indicate acute infection though she remains on Dificid for prophylaxis in the setting of antibiotic use. Admission and Anticipated Discharge Date Admission Date: February 25, 2024 Subjective Patient is an 78 yo female with diverticulitis. She notes that she is having some improvement of her LLQ pain. She denies diarrhea--actually notes const ipation and feels that her pain would improve if she moved her bowels. She continues on IV Cipro & Flagyl. No new complaints. Review of Systems Gastrointestinal: + abdominal pain and + constipation Physical Exam Constitutional: well developed Respiratory: normal respiratory effort Cardiovascular: Rate/Rhythm: regular rate Gastrointestinal (Abdomen): normal bowel sounds, soft, nontender, no hepatosplenomegaly Results & Data Results & Data Vital Signs (Past 12 Hours) Vital Signs Temp Pulse Pulse Resp BP Pulse Ox O2 Del Method 02/27/24 07:12 36.8 C 66 18 132/68 96 Room Air 02/27/24 05:47 60 02/27/24 03:12 36.7 C 65 18 112/61 96 Room Air PG Care Time/CCT Total # of Minutes Spent Total Time Spent with Patient: Total time spent is greater than 50% in coordination of care (as documented) at patient's floor/unit and/or counseling patient: Coding Level of Care Code 28461 SUB INP/OBS CARE 3/50MIN Diagnoses Acute diverticulitis K57.92 C. difficile colitis A04.72
--- NOTE | 2024-02-27 11:35 | Hospitalist Progress Note ---
Date of Service February 27, 2024 Assessment & Plan (1) Proctocolitis: Plan: Patient returns with lower abd pain and diarrhea Could be a recurrence of her C diff or a smouldering infection of her previous C diff and diverticulitis Recent [place] hospitalization for C. difficile colitis; completed 14-day course of vancomycin Repeat C. difficile Negative A/P CT on arrival revealed nonspecific proctocolitis within the left colon; superimposed acute diverticulitis cannot be excluded Started on fidaxomicin 200 mg every 12 hours, will transition back to p.o. vancomycin upon discharge (2) C. difficile colitis: Plan: Recurrent; see #1 (3) Diverticulitis: Plan: Superimposed acute diverticulitis cannot be excluded at this time Initially on p.o. Flagyl however discontinued by ID (4) Lyme disease: Plan: Patient tested positive for Lyme screening and confirmatory test Started on p.o. doxycycline, will need a 14-day course (5) Acute kidney injury superimposed on chronic kidney disease: Plan: Now resolved Hold losartan (6) Hypokalemia: Plan: Now resolved (7) Hypertension: Plan: Continue metoprolol, amlodipine Plan Disposition: Continue hospitalization Full code NPO for now and advance diet as tolerated VTE PPx: Heparin 5000u SQ q12h Admission and Anticipated Discharge Date Admission Date: February 25, 2024 Subjective Patient seen and examined, states she feels overall better, abdominal pain is much improved, no episode of diarrhea today Review of Systems Review of Systems: All systems reviewed are negative, apart from the ones contained in the history. Physical Exam Physical Exam: The patient is awake, alert and oriented 3, well developed and well nourished, normocephalic and atraumatic, lying in bed and in no acute distress. HEENT--PERRL, EOMI, mucous membranes and oropharynx mildly dry Neck--supple. No JVD. No bruits. Thyroid normal, trachea midline, no adenopathy. Heart--normal S1 and S2. No murmurs, rubs or gallops. Lungs--clear bilaterally, no respiratory distress, no accessory muscle use. Abdomen--normal bowel sounds and soft. Extremities--no cyanosis or clubbing. No edema. Dermatologic--normal skin turgor, normal color, no abnormal lymph nodes, no rash. Neurologic--cranial nerves II through XII grossly intact. Rheumatologic--normal range of motion. Psychiatric--normal affect. Results & Data Results & Data Vital Signs (Past 12 Hours) Vital Signs Temp Pulse Pulse Resp BP Pulse Ox O2 Del Method 02/27/24 07:12 98.2 F 66 18 132/68 96 Room Air 02/27/24 05:47 60 02/27/24 03:12 98.1 F 65 18 112/61 96 Room Air PG Care Time/CCT Total # of Minutes Spent Total Time Spent with Patient: Total time spent is greater than 50% in coordination of care (as documented) at patient's floor/unit and/or counseling patient: Coding Level of Care Code 54265 SUB INP/OBS CARE 2/35MIN Diagnoses Proctocolitis K52.9 C. difficile colitis A04.72 Diverticulitis K57.92 Lyme disease A69.20 Acute kidney injury superimposed on chronic kidney disease N17.9; N18.9 Hypokalemia E87.6 Hypertension I10 Time Spent (min) 35
[2024-02-27] MEDS: POLYETHYLENE (MIRALAX) 17 GM PACK PO SCH (11:52)
[2024-02-27] MEDS: DOCUSATE SODIUM 100 MG CAP PO SCH (11:52)
--- NOTE | 2024-02-27 12:50 | Infectious Disease Progress Nt ---
Date of Service February 27, 2024 Assessment & Plan (1) Proctocolitis: (2) Abdominal pain, lower: Plan This is an 78-year-old female with a past medical history of GERD, fibromyalgia, diverticulitis, gallstone pancreatitis (07/2023), chronic cholecystitis status post lap cholecystectomy, admitted 01/03 - 01/10 with acute diverticulitis (treated with ceftriaxone/Flagyl--> Unasyn inpatient)and discharged on Augmentin who then presented 01/18 - 01/28 with abdominal pain, diarrhea, fevers and diagnosed with C. difficile colitis. CTAP at the time w/ findings concerning for nonspecific proctocolitis of the left colon, advanced colon diverticulosis without acute diverticulitis. She completed a 14-day course of oral vancomycin on 02/02. On therapy she reports intermittent abdominal cramping, but less frequent stools. Stools were soft to loose but not watery. Post therapy she complained of mild bilateral lower quadrant abdominal cramping and bloating. She was seen by GI in follow-up on 02/11. She returns to the ED on 02/24 with decreased p.o. intake, increased abdominal pain and cramping.. Stools are soft. She denied diarrhea. She noted low-grade temperatures at 99.9 as welll as increased urination without dysuria, hematuria, or back pain. In the ED she was afebrile, HR 78, RR 17, blood pressure 173/82, 98% O2 sats on room air. Labs: WBC 16.23, BUN 18, creatinine 1.38. UA without nitrites, trace leukocyte esterase, 0-5 WBC, no bacteria seen. CTAP showed a nonspecific proctocolitis within the left colon which has slightly improved. There were 2 adjacent inflamed diverticulum within the proximal sigmoid colon with mild surrounding fat stranding. No evidence of bowel obstruction. GI PCR panel negative except for positive C. difficile gene, negative C. difficile toxin a and B and C. difficile PCR positive, concerning for C diff carrier state. She was started on oral vancomycin and Flagyl. ID consulted for possible recurrent C. difficile. On my initial exam she complains of abdominal pain and soft stools. She denies fever, chills, sweats. She denies nausea or vomiting. She has po appetite. She reports some tick exposures in the last few months. Of note in December 2023, Lyme screen and confirmatory testing positive. She denies treatment in the past for Lyme disease. # Increased abdominal Pain, cramping #C diff colonization, per testing, rule out recurrent Cdiff infection #History of C Diff, Colitis, first episode 12/2023-01/2024 # History of recent diverticulitis #Lyme disease, untreated #Leukocytosis, resolving # CKD III Antibiotics Vancomycin p.o. Metronidazole 02/25,02/26-ongoing Fidaxomicin 02/25- ongoing Doxy 02/25- ongoing Cipro 02/26- ongoing It is unclear if her presentation represents relapse or recurrence of C. difficile infection. C. difficile testing is consistent with C. difficile colonization/carrier state. However given her abdominal pain,continued pancolitis on imaging ( although improved), leukocytosis on admission, would treat as a possible second C. difficile episode.There are 2 adjacent inflamed diverticulum within the proximal sigmoid colon with mild surrounding fat stranding. This may may be 2/2 superimposed acute diverticulitis but likely corresponds to the suspected proctocolitis. She has urine frequency in the setting of lower abdominal pain, however her urinalysis is not consistent with infection. She denies hematuria or dysuria. Lyme testing in late December 2023 positive for Lyme on screen and confirmation testing. She admits to tick exposure, but has never been treated for Lyme disease. Fidaxomicin started 02/25 for ? SECOND episode cdiff. but per d/w team pt will not be able to afford outpt. Will switch to po VANCOtaper Seen by GI and started on Cipro/Flagyl for ? superimposed diverticulitis. 02/26 WBC decreasing and Ab pain improved . WBC trending down prior to initiation of GI rhonda abx coverage Recommendations: -Per D/w team pt will not be able to afford fidaxomicin outpatient. For st recurrence , usually treat with a different agent, but since Fidaxomicin cost is an issue, can restart PO vancomycin as a TAPER: 125 mg po qid for 10 days, then 125 mg po tid for 7 d, then 125 mg po bid for 7 d, then 125 mg po q24 for 7 d, then 125 mg po q 48h for 7 d , then 125 mg po every 3rd day for 7 d. - agree with continued treatment for ? diverticulitis; Cipro/Flagyl started by GI Would CHECK ekg to ensure QtC < 500. -Continue doxycycline 100 mg p.o. every 12 hours for 14 days for untreated Lyme disease. Will monitor clinically. If her abdominal pain persists and stool does not become more formed. Will consider possible superimposed diverticulitis. -ORdered PROCAL , follow up results. D/w hospitalist ID will continue to follow Rica Dickey MD, MPH Infectious Disease [facility], [facility] Call [phone] with questions. Admission and Anticipated Discharge Date Admission Date: February 25, 2024 Subjective Subsequent visit was provided via telemedicine using two-way real-time interactive telecommunication between the patient and the telemedicine provider. For the duration of the visit, the provider was performing the assessment from a different facility than the patient. This includesuse of bluetooth stethoscope forauscultationperformed by the telepresenter that the telemedici ne provider can hear if described in the physical exam. Curtain Supervisor contact information: Please call [facility] Call Center . (Phone Number For Physician Use Only) After establishing a telemedicine visit, patient was: Patient was verified with two unique identifiers Time Spent with Patient: Subsequent => 35 min She has less abd pain Started on Cipro/ flagyl for possible diverticulosis by GI Appetitite still poor but better than yesterday Physical Exam Physical Exam: Gen- NAD HEENT- Anicteric sclera Neck- supple Lung- No increased work of breathing. Abdomen- Softly distended, NO RLQ, RUQ today but LLQ tenderness persists ( but less) - No CVA tenderness Ext- No edema Neuro-AAO*3 Psych- Normal mood Results & Data Vital Signs (Past 12 Hours) Vital Signs Temp Pulse Pulse Resp BP BP Pulse Ox 02/27/24 11:45 36.9 C 67 17 138/71 97 02/27/24 07:12 36.8 C 66 18 132/68 96 02/27/24 05:47 60 02/27/24 03:12 36.7 C 65 18 112/61 96 O2 Del Method 02/27/24 11:45 Room Air 02/27/24 07:12 Room Air 02/27/24 05:47 02/27/24 03:12 Room Air Laboratory Results Short CBC 02/27/24 Range/Units 07:47 WBC 10.66 (4.8-10.8) K/ul Hgb 11.3 L (12.0-16.0) g/dl Hct 34.4 L (37.0-47.0) % Plt Count 243 (130-400) K/uL BMP 02/27/24 07:47 Sodium 140 Potassium 2.9 L Chloride 105 Carbon Dioxide 27 BUN 9 Creatinine 1.05 Glucose 87 Calcium 8.5 L Diagnostic Findings Abdomen/Pelvis CT 02/25/24 15:[address] WITHOUT CONTRAST CT DOSE: 468.75 mGy.cm HISTORY: lower abd cramping, nausea TECHNIQUE: Multiaxial CT images of the abdomen and pelvis were performed without contrast. A dose lowering technique was utilized adhering to the principles of ALARA. COMPARISON STUDY: Abdomen and pelvis CT 01/19/2024. FINDINGS: There are small bilateral pleural effusions with associated mild compressive atelectasis within the lower lobes. No pneumoperitoneum. No pneumatosis. No acute fractures. Prior cholecystectomy. Stable 12 mm hypodense lesion within the liver. This favors a cyst. The unenhanced spleen, adrenal glands, and pancreas are unremarkable. No renal stones or hydronephrosis. Moderate calcified plaque within the normal caliber abdominal aorta. No retroperitoneal or pelvic lymphadenopathy. The bladder is unremarkable. Prior hysterectomy. Trace pelvic free fluid. There is mild circumferential thickening involving the descending colon, sigmoid colon, and rectum with mild pericolonic fat stranding. This has slightly improved in the interval and is consistent with a nonspecific proctocolitis. There are 2 adjacent inflamed diverticulum within the proximal sigmoid colon with mild surrounding fat stranding best seen on image 250. This may correspond to the suspected proctocolitis. A superimposed acute diverticulitis is not excluded. No perforation or abscess identified. The appendix is surgically absent. IMPRESSION: 1. Above findings consistent with a nonspecific proctocolitis within the left colon. This has slightly improved. 2. There are 2 adjacent inflamed diverticulum within the proximal sigmoid colon with mild surrounding fat stranding. This may correspond to the suspected proctocolitis. A superimposed acute diverticulitis is not excluded. No perforation or abscess at this time. 3. No evidence for bowel obstruction. 4. Postoperative changes as described above. 5. Small bilateral pleural effusions. ACT 112: Negative or not required by law. Electronically signed by: Mukesh Nicholson M.D. 02/25/2024 6:04 PM Medications Administered Home Medications Medication Instructions Recorded Confirmed Last Taken lorazepam 0.5 mg tablet 0.5 mg PO DAILY PRN Anxiety 04/14/21 02/25/24 05/22/23 07:30 metoprolol succinate 25 mg 25 mg PO BID 04/14/21 02/25/24 02/25/24 08:00 tablet,extended release 24 hr acetaminophen 500 mg tablet 1,000 mg PO Q6H PRN Back Pain 04/27/21 02/25/24 08/21/21 (Tylenol Extra Strength) ergocalciferol (vitamin D2) 1,250 50,000 unit PO MONTHLY 05/13/23 02/25/24 Unknown mcg (50,000 unit) capsule losartan 100 mg tablet 100 mg PO QAM 05/13/23 02/25/24 02/25/24 amlodipine 10 mg tablet 10 mg PO DAILY 08/05/23 02/25/24 02/25/24 furosemide 20 mg tablet 40 mg (2 x 20 mg) PO DAILY Fluid 08/19/23 02/25/24 02/25/24 Retention #1 tab famotidine 20 mg tablet 20 mg PO BID #60 tabs 01/29/24 02/25/24 02/25/24 08:00 oxycodone 5 mg tablet 5 mg PO Q6H PRN pain, moderate #15 01/29/24 02/25/24 Unknown tabs Active Medications Generic Name Dose Route Start Last Admin Trade Name Freq PRN Reason Stop Dose Admin Amlodipine Besylate 10 mg 02/26/24 09:00 02/27/24 08:40 Amlodipine Besylate 5 Mg Tab PO 03/27/24 08:59 10 mg DAILY JAYLIN Administration Calcium Carbonate 1,500 mg 02/26/24 06:02 02/26/24 06:13 Calcium Carbonate 500 Mg Chewable Tab PO 03/27/24 06:01 1,500 mg Q6H PRN Administration Indigestion Docusate Sodium 100 mg 02/27/24 11:30 02/27/24 11:52 Docusate Sodium 100 Mg Cap PO 03/28/24 11:29 100 mg BID JAYLIN Administration Doxycycline Hyclate 100 mg 02/26/24 12:15 02/27/24 08:40 Doxycycline Hyclate 100 Mg Cap PO 03/07/24 12:14 100 mg BID JAYLIN Administration Famotidine 20 mg 02/26/24 00:49 02/27/24 08:40 Famotidine 20 Mg Tab PO 03/27/24 00:48 20 mg BID JAYLIN Administration Fidaxomicin 200 mg 02/26/24 12:15 02/27/24 09:11 Fidaxomicin 200 Mg Tab PO 03/07/24 12:14 200 mg Q12H JAYLIN Administration Heparin Sodium (Porcine) 5,000 units 02/26/24 00:49 02/27/24 08:40 Heparin Sod 5,000 Unit/0.5 Ml Vial SQ 03/27/24 00:48 5,000 units Q12 JAYLIN Administration Metronidazole 500 mg in 100 mls @ 100 mls/hr 02/26/24 16:00 02/27/24 08:17 Flagyl IV 03/07/24 15:59 Infused Q8H JAYLIN Infusion Protocol Ciprofloxacin 400 mg in 200 mls @ 100 mls/hr 02/26/24 16:15 02/27/24 06:01 Cipro / D5w IV 03/07/24 16:14 Infused Q12H JAYLIN Infusion Metoprolol Succinate 25 mg 02/26/24 00:49 02/27/24 08:40 Metoprolol Succ 25mg Ext Rel Tab PO 03/27/24 00:48 25 mg BID JAYLIN Administration Ondansetron HCl 4 mg 02/26/24 00:49 02/27/24 08:44 Ondansetron Inj 2 Mg/Ml 2 Ml Vial IV 03/27/24 00:48 4 mg Q6H PRN Administration Nausea Polyethylene Glycol 17 gm 02/27/24 11:30 02/27/24 11:52 Polyethylene (Miralax) 17 Gm Pack PO 03/28/24 11:29 17 gm DAILY JAYLIN Administration
[2024-02-28 06:24] LABS: Basophils # (auto) 0.05 K/uL (0.00-0.20); Basophils % (auto) 0.7 %; Eosinophils # (auto) 0.08 K/uL (0.00-0.50); Eosinophils % (auto) 1.1 %; Hemoglobin 9.7 g/dl (12.0-16.0); Immature Granulocytes # (auto) 0.02 K/uL (0.01-0.20); Immature Granulocytes % (auto) 0.3 %; Lymphocytes # (auto) 2.73 K/uL (1.20-3.40); Lymphocytes % (auto) 37.6 %; Mean Corpuscular Hemoglobin 27.8 pg (25.0-34.0); Mean Corpuscular Hgb Conc 33.4 g/dL (32.0-36.0); Mean Corpuscular Volume 83.1 fL (80.0-100.0); Mean Platelet Volume 9.9 fL (9.4-12.4); Monocytes # (auto) 0.56 K/uL (0.11-0.59); Monocytes % (auto) 7.7 %; Neutrophils # (auto) 3.83 K/uL (1.40-6.50); Neutrophils % (auto) 52.6 %; Platelet Count 244 K/uL (130-400); RDW Standard Deviation 42.5 fL (36.4-46.3); Red Blood Count 3.49 M/uL (4.20-5.40); White Blood Count 7.27 K/ul (4.8-10.8)
[2024-02-28 06:42] LABS: BUN Creatinine Ratio 5.6 (10-20); Calcium 8.4 mg/dl (8.6-10.3); Creatinine Clr Calc Pharmacy 29.7 ml/min; Est GFR (Non-African American) 40.6 ml/min; Magnesium 1.4 mg/dl (1.7-2.4); Potassium 2.7 mmol/L (3.5-5.1)
[2024-02-28] MEDS: POTASSIUM CHLORIDE CRTAB 20 MEQ TABCR PO STA (08:13)
[2024-02-28] MEDS: MAGNESIUM SULFATE / D5W 1 GM/100 ML BAG IV SCH (08:14)
--- NOTE | 2024-02-28 11:10 | Hospitalist Progress Note ---
Date of Service February 28, 2024 Assessment & Plan (1) Proctocolitis: Plan: Secondary to C. difficile Patient returns with lower abd pain and diarrhea Could be a recurrence of her C diff or a smouldering infection of her previous C diff and diverticulitis Recent [place] hospitalization for C. difficile colitis; completed 14-day course of vancomycin Repeat C. difficile Negative A/P CT on arrival revealed nonspecific proctocolitis within the left colon; superimposed acute diverticulitis cannot be excluded Given the cost of fidaxomicin outpatient, ID recommends p.o. vancomycin taper. 125 mg po qid for 10 days, then 125 mg po tid for 7 d, then 125 mg po bid for 7 d, then 125 mg po q24 for 7 d, then 125 mg po q 48h for 7 d , then 125 mg po every 3rd day for 7 d. (2) C. difficile colitis: Plan: Recurrent; see #1 (3) Diverticulitis: Plan: Superimposed acute diverticulitis cannot be excluded at this time Also continue combination of Cipro and Flagyl for possible diverticulitis (4) Lyme disease: Plan: Patient tested positive for Lyme screening and confirmatory test Started on p.o. doxycycline, will need a 14-day course (5) Acute kidney injury superimposed on chronic kidney disease: Plan: Now resolved Hold losartan (6) Hypokalemia: Plan: Now resolved (7) Hypertension: Plan: Continue metoprolol, amlodipine Plan Disposition: Continue hospitalization, Hopefully discharge in next 24 to 48 hours Full code NPO for now and advance diet as tolerated VTE PPx: Heparin 5000u SQ q12h Admission and Anticipated Discharge Date Admission Date: February 25, 2024 Subjective Patient seen and examined, no bowel movements for today. Review of Systems Review of Systems: All systems reviewed are negative, apart from the ones contained in the history. Physical Exam Physical Exam: The patient is awake, alert and oriented 3, well developed and well nourished, normocephalic and atraumatic, lying in bed and in no acute distress. HEENT--PERRL, EOMI, mucous membranes and oropharynx mildly dry Neck--supple. No JVD. No bruits. Thyroid normal, trachea midline, no adenopathy. Heart--normal S1 and S2. No murmurs, rubs or gallops. Lungs--clear bilaterally, no respiratory distress, no accessory muscle use. Abdomen--normal bowel sounds and soft. Extremities--no cyanosis or clubbing. No edema. Dermatologic--normal skin turgor, normal color, no abnormal lymph nodes, no rash. Neurologic--cranial nerves II through XII grossly intact. Rheumatologic--normal range of motion. Psychiatric--normal affect. Results & Data Results & Data Vital Signs (Past 12 Hours) Vital Signs Temp Pulse Pulse Resp BP Pulse Ox O2 Del Method 02/28/24 08:09 98.1 F 60 20 145/70 H 94 Room Air 02/28/24 08:00 Room Air 02/28/24 07:14 55 L 02/28/24 02:57 97.5 F L 62 16 128/70 99 Room Air 02/27/24 23:37 98.1 F 64 16 134/74 96 Room Air 02/27/24 23:22 58 L PG Care Time/CCT Total # of Minutes Spent Total Time Spent with Patient: Total time spent is greater than 50% in coordination of care (as documented) at patient's floor/unit and/or counseling patient: Coding Level of Care Code 62971 SUB INP/OBS CARE 2/35MIN Diagnoses Proctocolitis K52.9 C. difficile colitis A04.72 Diverticulitis K57.92 Lyme disease A69.20 Acute kidney injury superimposed on chronic kidney disease N17.9; N18.9 Hypokalemia E87.6 Hypertension I10 Time Spent (min) 35
--- NOTE | 2024-02-28 11:56 | Gastroenterology Progress Note ---
<Statement entered by Nida Garcia MD - 02/28/24 15:28> I have examined the patient, reviewed the History & Physical and in the interval since the performance of the History & Physical I have noted the following changes of clinical significance: no changes noted. I agree with the documentation provided by JAMISON Trevino with no additional comments. Date of Service February 28, 2024 Assessment & Plan (1) Diverticulitis: Plan: Patient is an 78 yo female with diverticulitis vs proctocolitis -Continue IV Cipro & Flagyl; plan to transition to po for discharge and treat for 10 days. -Continue Miralax; can titrate as needed -Continue Colace 100 mg BID -Can use Vanco for C diff prophylaxis while on antibiotics; refer to ID consult as well -Colonoscopy in 6-8 weeks for further assessment Admission and Anticipated Discharge Date Admission Date: February 25, 2024 Subjective Patient is an 78 yo with proctocolitis vs diverticulitis. She notes improvement of abdominal pain since beginning IV antibiotics. She denies diarrhea and is constipated, though she notes Miralax & stool softeners did seem to allow her to move her bowels. She takes Linzess at home, but will need an outpatient appointment to discuss other options as she notes her insurance is not covering it. She denies new issues. She is afebrile. Leukocytosis is resolved. She is on a full liquid diet. Review of Systems Gastrointestinal: + abdominal pain (improving) and + const ipation (constipation) Physical Exam Constitutional: well developed Respiratory: normal respiratory effort Gastrointestinal (Abdomen): normal bowel sounds, soft, nontender, no hepatosplenomegaly Results & Data Results & Data Vital Signs (Past 12 Hours) Vital Signs Temp Pulse Pulse Resp BP Pulse Ox O2 Del Method 02/28/24 11:28 36.6 C 64 20 143/70 H 97 Room Air 02/28/24 08:09 36.7 C 60 20 145/70 H 94 Room Air 02/28/24 08:00 Room Air 02/28/24 07:14 55 L 02/28/24 02:57 36.4 C L 62 16 128/70 99 Room Air PG Care Time/CCT Total # of Minutes Spent Total Time Spent with Patient: Total time spent is greater than 50% in coordination of care (as documented) at patient's floor/unit and/or counseling patient: Coding Level of Care Code 42162 SUB INP/OBS CARE MIN Diagnoses Diverticulitis K57.92
[2024-02-28] MEDS: CHERRY SYRUP 5 ML UDP PO SCH (12:19)
[2024-02-28] MEDS: VANCOMYCIN HCL 125 MG/2.5ML SOLN PO SCH (12:19)
--- NOTE | 2024-02-28 12:36 | Infectious Disease Progress Nt ---
Date of Service February 28, 2024 Assessment & Plan (1) Proctocolitis: (2) Abdominal pain, lower: Plan This is an 78-year-old female with a past medical history of GERD, fibromyalgia, diverticulitis, gallstone pancreatitis (07/2023), chronic cholecystitis status post lap cholecystectomy, admitted 01/03 - 01/10 with acute diverticulitis (treated with ceftriaxone/Flagyl--> Unasyn inpatient)and discharged on Augmentin who then presented 01/18 - 01/28 with abdominal pain, diarrhea, fevers and diagnosed with C. difficile colitis. CTAP at the time w/ findings concerning for nonspecific proctocolitis of the left colon, advanced colon diverticulosis without acute diverticulitis. She completed a 14-day course of oral vancomycin on 02/02. On therapy she reports intermittent abdominal cramping, but less frequent stools. Stools were soft to loose but not watery. Post therapy she complained of mild bilateral lower quadrant abdominal cramping and bloating. She was seen by GI in follow-up on 02/11. She returns to the ED on 02/24 with decreased p.o. intake, increased abdominal pain and cramping.. Stools are soft. She denied diarrhea. She noted low-grade temperatures at 99.9 as well as increased urination without dysuria, hematuria, or back pain. In the ED she was afebrile, HR 78, RR 17, blood pressure 173/82, 98% O2 sats on room air. Labs: WBC 16.23, BUN 18, creatinine 1.38. UA without nitrites, trace leukocyte esterase, 0-5 WBC, no bacteria seen. CTAP showed a nonspecific proctocolitis within the left colon which has slightly improved. There were 2 adjacent inflamed diverticulum within the proximal sigmoid colon with mild surrounding fat stranding. No evidence of bowel obstruction. GI PCR panel negative except for positive C. difficile gene, negative C. difficile toxin a and B and C. difficile PCR positive, concerning for C diff carrier state. She was started on oral vancomycin and Flagyl. ID consulted for possible recurrent C. difficile. On my initial exam she complained of abdominal pain and soft stools. She denied fever, chills, sweats,nausea or vomiting. She complained of poor appetite. She reported some tick exposures in the last few months. Of note in December 2023, Lyme screen and confirmatory testing positive. She denied treatment in the past for Lyme disease. # Increased abdominal Pain, cramping ( ? 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 , 02-26-ongoing Metronidazole 02/25,02/26-ongoing Fidaxomicin 02/25- 02/26 Doxy 02/25- ongoing Cipro 02/26- ongoing It is unclear if her presentation represents relapse or recurrence of C. difficile infection or diverticulitis.. C. difficile testing is consistent with C. difficile colonization/carrier state. However given her abdominal pain,continued pancolitis on imaging ( although improved), leukocytosis on admission, would treat as a possible second C. difficile episode.There are 2 adjacent inflamed diverticulum within the proximal sigmoid colon with mild surrounding fat stranding. This may may be 2/2 superimposed acute diverticuliti s but likely corresponds to the suspected proctocolitis. She has urine frequency in the setting of lower abdominal pain, however her urinalysis is not consistent with infection. She denies hematuria or dysuria. Lyme testing in late December 2023 positive for Lyme on screen and confirmation testing. She admits to tick exposure, but has never been treated for Lyme disease. Fidaxomicin started 02/25 for ? SECOND episode cdiff. but per d/w team and pt will not be able to afford outpt. Switched to po VANCO taper Seen by GI and started on Cipro/Flagyl for ? superimposed diverticulitis. 02/26 WBC decreasing and Ab pain improved . WBC trending down prior to initiation of GI rhonda abx coverage 02/27 Leukocytosis resolved. Less abdominal pain. More loose stools but team started her on laxatives. Procal 0.03 Recommendations: -Continue PO vancomycin as a TAPER: 125 mg po qid for 10 days ( started 02/24), then 125 mg po tid for 7 d, then 125 mg po bid for 7 d, then 125 mg po q24 for 7 d, then 125 mg po q 48h for 7 d , then 125 mg po every 3rd day for 7 d. - agree with continued treatment for ? diverticulitis; Cipro/Flagyl started by GI on 02/26. Would CHECK ekg to ensure QtC < 500. If QTC >500, then switch cipro to cefpodoxime 400 mg po daily ( CR CL is 29.7 ) and continue Flagyl 500 mg po q12h.Complete 10 d ( EOT 03/07). -Continue doxycycline 100 mg p.o. every 12h for 14 days for untreated Lyme disease. EOT 03/11 -Monitor renal function and adjust antibiotic dosing accordingly. ID will sign off Call with questions. Rica Dickey MD, MPH Infectious Disease [facility], [facility] Call [phone] with questions. Admission and Anticipated Discharge Date Admission Date: February 25, 2024 Subjective Subsequent visit was provided via telemedicine using two-way real-time interactive telecommunication between the patient and the telemedicine provider. For the duration of the visit, the provider was performing the assessment from a different facility than the patient. This includesuse of bluetooth stethoscope forauscultationperformed by the telepresenter that the telemedicine provider can hear if described in the physical exam. [employer] contact information: Please call [facility] . (Phone Number For Physician Use Only) After establishing a telemedicine visit, patient was: Patient was verified with two unique identifiers Time Spent with Patient: Subsequent => 35 min She has less abd pain Appetite is better. Had 4-5 loose stools but she was started on laxatives Tolerated liquid diet yesterday Physical Exam Physical Exam: Gen- NAD HEENT- Anicteric sclera Neck- supple Lung- No increased work of breathing. Abdomen- Softly distended, NO RLQ, RUQ today, less LLQ tenderness - No CVA tenderness Ext- No edema Neuro-AAO*3 Psych- Normal mood Results & Data Vital Signs (Past 12 Hours) Vital Signs Temp Pulse Pulse Resp BP Pulse Ox O2 Del Method 02/28/24 11:28 36.6 C 64 20 143/70 H 97 Room Air 02/28/24 08:09 36.7 C 60 20 145/70 H 94 Room Air 02/28/24 08:00 Room Air 02/28/24 07:14 55 L 02/28/24 02:57 36.4 C L 62 16 128/70 99 Room Air Laboratory Results Short CBC 02/28/24 Range/Units 05:56 WBC 7.27 (4.8-10.8) K/ul Hgb 9.7 L (12.0-16.0) g/dl Hct 29.0 L (37.0-47.0) % Plt Count 244 (130-400) K/uL BMP 02/28/24 05:56 Sodium 140 Potassium 2.7 L Chloride 106 Carbon Dioxide 27 BUN 7 Creatinine 1.25 H Glucose 112 H Calcium 8.4 L Diagnostic Findings Abdomen/Pelvis CT 02/25/24 15:[address] WITHOUT CONTRAST CT DOSE: 468.75 mGy.cm HISTORY: lower abd cramping, nausea TECHNIQUE: Multiaxial CT images of the abdomen and pelvis were performed without contrast. A dose lowering technique was utilized adhering to the principles of ALARA. COMPARISON STUDY: Abdomen and pelvis CT 01/19/2024. FINDINGS: There are small bilateral pleural effusions with associated mild compressive atelectasis within the lower lobes. No pneumoperitoneum. No pneumatosis. No acute fractures. Prior cholecystectomy. Stable 12 mm hypodense lesion within the liver. This favors a cyst. The unenhanced spleen, adrenal glands, and pancreas are unremarkable. No renal stones or hydronephrosis. Moderate calcified plaque within the normal caliber abdominal aorta. No retroperitoneal or pelvic lymphadenopathy. The bladder is unremarkable. Prior hysterectomy. Trace pelvic free fluid. There is mild circumferential thickening involving the descending colon, sigmoid colon, and rectum with mild pericolonic fat stranding. This has slightly improved in the interval and is consistent with a nonspecific proctocolitis. There are 2 adjacent inflamed diverticulum within the proximal sigmoid colon with mild surrounding fat stranding best seen on image 250. This may correspond to the suspected proctocolitis. A superimposed acute diverticulitis is not excluded. No perforation or abscess identified. The appendix is surgically absent. IMPRESSION: 1. Above findings consistent with a nonspecific proctocolitis within the left colon. This has slightly improved. 2. There are 2 adjacent inflamed diverticulum within the proximal sigmoid colon with mild surrounding fat stranding. This may correspond to the suspected proctocolitis. A superimposed acute diverticulitis is not excluded. No perforation or abscess at this time. 3. No evidence for bowel obstruction. 4. Postoperative changes as described above. 5. Small bilateral pleural effusions. ACT 112: Negative or not required by law. Electronically signed by: Mukesh Nicholson M.D. 02/25/2024 6:04 PM Medications Administered Home Medications Medication Instructions Recorded Confirmed Last Taken lorazepam 0.5 mg tablet 0.5 mg PO DAILY PRN Anxiety 04/14/21 02/25/24 05/22/23 07:30 metoprolol succinate 25 mg 25 mg PO BID 04/14/21 02/25/24 02/25/24 08:00 tablet,extended release 24 hr acetaminophen 500 mg tablet 1,000 mg PO Q6H PRN Back Pain 04/27/21 02/25/24 08/21/21 (Tylenol Extra Strength) ergocalciferol (vitamin D2) 1,250 50,000 unit PO MONTHLY 05/13/23 02/25/24 Unknown mcg (50,000 unit) capsule losartan 100 mg tablet 100 mg PO QAM 05/13/23 02/25/24 02/25/24 amlodipine 10 mg tablet 10 mg PO DAILY 08/05/23 02/25/24 02/25/24 furosemide 20 mg tablet 40 mg (2 x 20 mg) PO DAILY Fluid 08/19/23 02/25/24 02/25/24 Retention #1 tab famotidine 20 mg tablet 20 mg PO BID #60 tabs 01/29/24 02/25/24 02/25/24 08:00 oxycodone 5 mg tablet 5 mg PO Q6H PRN pain, moderate #15 01/29/24 02/25/24 Unknown tabs Active Medications Generic Name Dose Route Start Last Admin Trade Name Mc PRN Reason Stop Dose Admin Amlodipine Besylate 10 mg 02/26/24 09:00 02/28/24 08:13 Amlodipine Besylate 5 Mg Tab PO 03/27/24 08:59 10 mg DAILY JAYLIN Administration Calcium Carbonate 1,500 mg 02/26/24 06:02 02/26/24 06:13 Calcium Carbonate 500 Mg Chewable Tab PO 03/27/24 06:01 1,500 mg Q6H PRN Administration Indigestion Dorado Syrup 5 ml 02/28/24 12:00 02/28/24 12:19 Dorado Syrup 5 Ml Udp PO 03/09/24 11:59 5 ml Q6 JAYLIN Administration Docusate Sodium 100 mg 02/27/24 11:30 02/28/24 08:13 Docusate Sodium 100 Mg Cap PO 03/28/24 11:29 100 mg BID JAYLIN Administration Doxycycline Hyclate 100 mg 02/26/24 12:15 02/28/24 08:13 Doxycycline Hyclate 100 Mg Cap PO 03/07/24 12:14 100 mg BID JAYLIN Administration Famotidine 20 mg 02/26/24 00:49 02/28/24 08:13 Famotidine 20 Mg Tab PO 03/27/24 00:48 20 mg BID JAYLIN Administration Heparin Sodium (Porcine) 5,000 units 02/26/24 00:49 02/28/24 08:14 Heparin Sod 5,000 Unit/0.5 Ml Vial SQ 03/27/24 00:48 5,000 units Q12 JAYLIN Administration Metronidazole 500 mg in 100 mls @ 100 mls/hr 02/26/24 16:00 02/28/24 09:14 Flagyl IV 03/07/24 15:59 Infused Q8H JAYLIN Infusion Protocol Ciprofloxacin 400 mg in 200 mls @ 100 mls/hr 02/26/24 16:15 02/28/24 06:50 Cipro / D5w IV 03/07/24 16:14 Infused Q12H JAYLIN Infusion Metoprolol Succinate 25 mg 02/26/24 00:49 02/28/24 08:14 Metoprolol Succ 25mg Ext Rel Tab PO 03/27/24 00:48 25 mg BID JAYLIN Administration Ondansetron HCl 4 mg 02/26/24 00:49 02/27/24 21:17 Ondansetron Inj 2 Mg/Ml 2 Ml Vial IV 03/27/24 00:48 4 mg Q6H PRN Administration Nausea Polyethylene Glycol 17 gm 02/27/24 11:30 02/28/24 08:20 Polyethylene (Miralax) 17 Gm Pack PO 03/28/24 11:29 Not Given DAILY JAYLIN Vancomycin HCl 125 mg 02/28/24 12:00 02/28/24 12:19 Vancomycin Hcl 125 Mg/2.5ml Soln PO 03/09/24 11:59 125 mg Q6 JAYLIN Administration
[2024-02-29 06:26] LABS: Hematocrit (blood only) 29.4 % (37.0-47.0); Hemoglobin 9.8 g/dl (12.0-16.0); Mean Corpuscular Hemoglobin 27.8 pg (25.0-34.0); Mean Corpuscular Hgb Conc 33.3 g/dL (32.0-36.0); Mean Corpuscular Volume 83.3 fL (80.0-100.0); Mean Platelet Volume 9.8 fL (9.4-12.4); Platelet Count 268 K/uL (130-400); RDW Standard Deviation 42.8 fL (36.4-46.3); Red Blood Count 3.53 M/uL (4.20-5.40); White Blood Count 6.24 K/ul (4.8-10.8)
[2024-02-29 06:55] LABS: BUN Creatinine Ratio 4.4 (10-20); Calcium 8.3 mg/dl (8.6-10.3); Creatinine Clr Calc Pharmacy 27.2 ml/min; Est GFR (African American) 42.1 ml/min; Est GFR (Non-African American) 36.3 ml/min
[2024-02-29] MEDS: POTASSIUM CHLORIDE CRTAB 20 MEQ TABCR PO STA (08:24)
[2024-02-29] MEDS: POTASSIUM CHLORIDE CRTAB 20 MEQ TABCR PO SCH (09:55)
[2024-02-29] MEDS: MAGNESIUM SULFATE / D5W 1 GM/100 ML BAG IV SCH (09:55)
--- NOTE | 2024-02-29 12:42 | Hospitalist Progress Note ---
Date of Service February 29, 2024 Assessment & Plan (1) Proctocolitis: Plan: Secondary to C. difficile Patient returns with lower abd pain and diarrhea Could be a recurrence of her C diff or a smouldering infection of her previous C diff and diverticulitis Recent [place] hospitalization for C. difficile colitis; completed 14-day course of vancomycin Repeat C. difficile Negative A/P CT on arrival revealed nonspecific proctocolitis within the left colon; superimposed acute diverticulitis cannot be excluded Given the cost of fidaxomicin outpatient, ID recommends p.o. vancomycin taper. Per ID "Continue PO vancomycin as a TAPER: 125 mg po qid for 10 days ( started 02/24), then 125 mg po tid for 7 d, then 125 mg po bid for 7 d, then 125 mg po q24 for 7 d, then 125 mg po q 48h for 7 d , then 125 mg po every 3rd day for 7 d. agree with continued treatment for ? diverticulitis; Cipro/Flagyl started by GI on 02/26. Would CHECK ekg to ensure QtC < 500. If QTC >500, then switch cipro to cefpodoxime 400 mg po daily ( CR CL is 29.7 ) and continue Flagyl 500 mg po q12h.Complete 10 d ( EOT 03/07). Continue doxycycline 100 mg p.o. every 12h for 14 days for untreated Lyme disease. EOT 03/11 Monitor renal function and adjust antibiotic dosing" Will hopefully discharge patient tomorrow so she can meet up with her appointment on Saturday for MRI (2) C. difficile colitis: Plan: Recurrent; see #1 (3) Diverticulitis: Plan: Superimposed acute diverticulitis cannot be excluded at this time Also continue combination of Cipro and Flagyl for possible diverticulitis (4) Lyme disease: Plan: Patient tested positive for Lyme screening and confirmatory test Started on p.o. doxycycline, will need a 14-day course (5) Acute kidney injury superimposed on chronic kidney disease: Plan: Now resolved Hold losartan (6) Hypokalemia: Plan: Now resolved (7) Hypertension: Plan: Continue metoprolol, amlodipine Plan Disposition: Continue hospitalization, Hopefully discharge in next 24 to 48 hours Full code NPO for now and advance diet as tolerated VTE PPx: Heparin 5000u SQ q12h Admission and Anticipated Discharge Date Admission Date: February 25, 2024 Subjective Patient seen and examined, was having loose bowel movements however she has been on laxative, will stop that. Review of Systems Review of Systems: All systems reviewed are negative, apart from the ones contained in the history. Physical Exam Physical Exam: The patient is awake, alert and oriented 3, well developed and well nourished, normocephalic and atraumatic, lying in bed and in no acute distress. HEENT--PERRL, EOMI, mucous membranes and oropharynx mildly dry Neck--supple. No JVD. No bruits. Thyroid normal, trachea midline, no adenopathy. Heart--normal S1 and S2. No murmurs, rubs or gallops. Lungs--clear bilaterally, no respiratory distress, no accessory muscle use. Abdomen--normal bowel sounds and soft. Extremities--no cyanosis or clubbing. No edema. Dermatologic--normal skin turgor, normal color, no abnormal lymph nodes, no rash. Neurologic--cranial nerves II through XII grossly intact. Rheumatologic--normal range of motion. Psychiatric--normal affect. Results & Data Results & Data Vital Signs (Past 12 Hours) Vital Signs Temp Pulse Pulse Resp BP Pulse Ox O2 Del Method 02/29/24 11:14 97.9 F 64 17 132/60 98 Room Air 02/29/24 08:29 98.2 F 62 18 169/71 H 99 Room Air 02/29/24 07:19 64 02/29/24 02:31 98.1 F 62 18 125/66 97 Room Air PG Care Time/CCT Total # of Minutes Spent Total Time Spent with Patient: Total time spent is greater than 50% in coordination of care (as documented) at patient's floor/unit and/or counseling patient: Coding Level of Care Code 21863 SUB INP/OBS CARE 2/35MIN Diagnoses Proctocolitis K52.9 C. difficile colitis A04.72 Diverticulitis K57.92 Lyme disease A69.20 Acute kidney injury superimposed on chronic kidney disease N17.9; N18.9 Hypokalemia E87.6 Hypertension I10 Time Spent (min) 35
[2024-03-01] MEDS: CIPROFLOXACIN / D5W 400 MG/200 ML BAG IV SCH (05:23)
[2024-03-01 07:15] LABS: Hematocrit (blood only) 30.1 % (37.0-47.0); Hemoglobin 9.8 g/dl (12.0-16.0); Mean Corpuscular Hemoglobin 27.7 pg (25.0-34.0); Mean Corpuscular Hgb Conc 32.6 g/dL (32.0-36.0); Mean Platelet Volume 10.5 fL (9.4-12.4); Platelet Count 264 K/uL (130-400); RDW Coefficient of Variation 14.3 % (11.5-14.5); RDW Standard Deviation 44.3 fL (36.4-46.3); Red Blood Count 3.54 M/uL (4.20-5.40); White Blood Count 6.59 K/ul (4.8-10.8)
[2024-03-01 07:26] LABS: BUN Creatinine Ratio 7.6 (10-20); Calcium 8.4 mg/dl (8.6-10.3); Est GFR (African American) 44.1 ml/min; Potassium 3.9 mmol/L (3.5-5.1)
[2024-03-01] MEDS: SIMETHICONE 80 MG CHEW PO ONE (11:16)
--- NOTE | 2024-03-01 11:43 | Discharge Summary ---
Date of Service March 01, 2024 Admission HPI Per Admitting Provider Marisel is an 78-year-old female with PMH of C. difficile colitis, diverticulitis, HTN, fibromyalgia, HLD, depression, scleroderma, vitamin D deficiency, and CKD stage III. She presented on 02/24 for recurrence of lower abdominal cramping and diarrhea with low-grade fever. Patient was recently hospitalized from 01/18 -to 01/28 for a C. difficile colitis. She completed a 14- day course of p.o. vancomycin and infectious disease was consulted. She reports that her abdominal cramping then returned around 1 week ago. Her diarrhea has been intermittent and ongoing. No blood in her stool. She is having diarrhea with a frequency of twice daily, but reports it is not as loose as it was previously; she describes it looks like a "cowpat", but more mushy. No dark tarry stool. Her abdominal cramping is transverse across her lower quadrants; intermittent and can last for hours at a time; she is unable to rate the pain, but reports that it is so bad at times that she feels like she will "pass out". Pain is exacerbated by eating and moving bowels. She denies any recent fainting. No recent injuries or trauma to the abdomen or pelvis. She did not take her regular morning medications today; no recent change in medications. She does not have a history of UTIs. She denies smoking, tobacco use, recent alcohol use. Patient's vitals are stable at time of admission. ED course: NSS 250 mL IV Vancomycin 125 mg p.o. ROS: Patient endorses low-grade fever 99.3 at home (runs low), chills, abdominal cramping, diarrhea, and increased urinary frequency. Patient denies night-sweats, dizziness, lightheadedness, PORTILLO, chest pain, chest palpitations, SOB, cough, nausea, vomiting, lower back pain, burning with urination, blood in urine/stool, saddle anesthesia, or numbness/tingling in the arms or legs. Admission Exam (Per Admitting) Constitutional The patient is awake, alert and oriented 3, well developed and well nourished, normocephalic and atraumatic, lying in bed and in no acute distress. HEENT--PERRL, EOMI, mucous membranes and oropharynx mildly dry Neck--supple. No JVD. No bruits. Thyroid normal, trachea midline, no adenopath y. Heart--normal S1 and S2. No murmurs, rubs or gallops. Lungs--clear bilaterally, no respiratory distress, no accessory muscle use. Abdomen--normal bowel sounds and soft. Extremities--no cyanosis or clubbing. No edema. Dermatologic--normal skin turgor, normal color, no abnormal lymph nodes, no rash. Neurologic--cranial nerves II through XII grossly intact. Rheumatologic--normal range of motion. Psychiatric--normal affect. Discharge Data Consultations 02/25/24 19:34 ED Decision to Admit Stat 02/26/24 00:49 Consult Infectious Diseases Routine Hospital Course (1) Proctocolitis: Secondary to C. difficile Patient returns with lower abd pain and diarrhea Could be a recurrence of her C diff or a smouldering infection of her previous C diff and diverticulitis Recent [place] hospitalization for C. difficile colitis; completed 14-day course of vancomycin Repeat C. difficile Negative A/P CT on arrival revealed nonspecific proctocolitis within the left colon; superimposed acute diverticulitis cannot be excluded Given the cost of fidaxomicin outpatient, ID recommends p.o. vancomycin taper. Per ID "Continue PO vancomycin as a TAPER: 125 mg po qid for 10 days ( started 02/24), then 125 mg po tid for 7 d, then 125 mg po bid for 7 d, then 125 mg po q24 for 7 d, then 125 mg po q 48h for 7 d , then 125 mg po every 3rd day for 7 d. agree with continued treatment for ? diverticulitis; Cipro/Flagyl started by GI on 02/26. Would CHECK ekg to ensure QtC < 500. If QTC >500, then switch cipro to cefpodoxime 400 mg po daily ( CR CL is 29.7 ) and continue Flagyl 500 mg po q12h.Complete 10 d ( EOT 03/07). Continue doxycycline 100 mg p.o. every 12h for 14 days for untreated Lyme disease. EOT 03/11 Monitor renal function and adjust antibiotic dosing" Will hopefully discharge patient today so she can meet up with her appointment on Saturday for MRI (2) C. difficile colitis: Recurrent; see #1 (3) Diverticulitis: Superimposed acute diverticulitis cannot be excluded at this time Also continue combination of Cipro and Flagyl for possible diverticulitis (4) Lyme disease: Patient tested positive for Lyme screening and confirmatory test Started on p.o. doxycycline, will need a 14-day course (5) Acute kidney injury superimposed on chronic kidney disease: Now resolved Hold losartan (6) Hypokalemia: Now resolved (7) Hypertension: Continue metoprolol, amlodipine Plan Disposition: disicharge Full code NPO for now and advance diet as tolerated VTE PPx: Heparin 5000u SQ q12h Coding Level of Care Code 03582 INP/OBS DISCH >30 MIN Diagnoses Proctocolitis K52.9 C. difficile colitis A04.72 Diverticulitis K57.92 Lyme disease A69.20 Acute kidney injury superimposed on chronic kidney disease N17.9; N18.9 Hypokalemia E87.6 Hypertension I10 Time Spent (min) 35
== END 2024-03-01 12:00 | disposition home health service (06) | DRG 372 ==
LOC: ED 14:12 → SUATTDRO 20:22 → 2W 20:22

== ENCOUNTER 2024-07-26 10:40 | Inpatient (IN) ==
--- OUTSIDE RECORDS SUMMARY | 2024-07-26 10:44 | External Medical Summary ---
Author Name Unknown Address Unknown Organization [id number]:LABORATORY [facility] [place] - [address] [address] Laboratory Report Ordering Provider Test Date Status ZEE HIRSCH 07/17/2024 13:37:36 Final Deficient: <20 ng/mL
Ins ufficient: 20-29 ng/mL
Recommended/Optimum:30-50 ng/mL

Vitamin D intoxication is rare. If suspicious of Vitamin D toxicity, evaluation of serum Calcium and PTH is recommended. Observation Date Value Abnormality Reference (Units ) Status 25-OH Vitamin D total 07/17/2024 13:37:36 24 >19 (ng/mL) Final Performing Location LABORATORY [facility] - [address] [address]
--- OUTSIDE RECORDS SUMMARY | 2024-07-26 10:44 | External Medical Summary ---
Author Name Unknown Address Unknown Organization [id number]:[place] [facility] [place] [address] [address] Laboratory Report Ordering Provider Test Date Status ZEE HIRSCH 07/17/2024 13:37:36 Final Observation Date Value Abnormality Reference (Units ) Status Erythrocyte sedimentation rate by Photometric method 07/17/2024 13:37:36 50 Above high normal <30 (mm/hour) Final Performing Location LAB[facility]ATORY [facility] - [address] [place] [address]
--- OUTSIDE RECORDS SUMMARY | 2024-07-26 10:44 | External Medical Summary | Summary of Care ---
Author Name Unknown Organization [facility] Address [address] [facility] [place] [address] Phone [phone] Care Team Providers Care Computer Systems Support Specialist Name Role Phone Peter Stark MD Primary Care Provider [phone] Reason for Visit * Reason Comments Rheum Follow Up Scleroderma Encounter Details Date Type Department Care Team (Latest Contact Info) Description 07/17/2024 1:00 PM EST [facility] [address] [facility] [place] [address] Giuliano Tolentino MD [address] [place] [address] Scleroderma (HCC)*; Primary osteoarthritis of both knees; Raynaud's disease without gangrene; Senile osteoporosis Allergies Active Allergy Reactions Criticality Noted Date [...] as of this encounter (statuses as of 07/17/2024) Medications NEXIUM 40 MG PO CPDR Take by mouth daily before dinner. 30 0 5 Active LORAzepam (ATIVAN) 0.5 MG Tablet 1 twice daily 9 Active Cholecalciferol (VITAMIN D3) 94174 units Capsule Take 1 Capsule by mouth. 1 monthly Active amLODIPine Besylate 5 MG Oral Tablet (NORVASC) 1 Tablet every morning. 1 daily 0 Active Metoprolol Succinate ER 25 MG Oral Tablet Extended Release 24 Hour (toPROL XL) 2 times a day. 1 Active Amoxicillin 500 MG Oral Capsule (Amoxil) As needed for dentist 1 Active Linzess 145 MCG Oral Capsule 1 daily 1 Active Losartan Potassium 50 MG Oral Tablet (Cozaar) at bedtime. 2 Active Furosemide 20 MG Oral Tablet (Lasix) Take by mouth daily. Active Gabapentin 300 MG Oral Capsule (Neurontin) As needed 2 07/17/20 24 Discontinu ed(Medicat ion List Clean Up) documented as of this encounter (statuses as of 07/17/2024) Active Problems Problem Noted Date Diagnosed Date Medical marijuana use 06/16/2021 Raynaud's disease without gangrene 06/12/2019 Primary osteoarthritis of both knees 12/12/2018 Scleroderma 12/12/2018 Fibromyalgia Kidney disease, chronic, stage III (GFR 30-59 ml /min) IBS (irritable bowel syndrome) HTN (hypertension) GERD (gastroesophageal reflux disease) Anxiety documented as of this encounter (statuses as of 07/17/2024) Immunizations Name Administration Dates Next Due COVID-19 mRNA, LNP-s, No Pre serve, 2-Dose Series (Moderna) 10/08/2020,09/10/2020 Pneumococcal Polysaccharide PPV23 (Pneumovax) 07/02/2007 Season Influenza, Quad, PF, Adjuvanted, 65+ Yrs, IM (FLUAD) 06/12/2023 Seasonal Influenza Virus Vac cine, Unspecified Formulation 04/28/2018,05/29/2017,07/02/2007,06/19,05/28/2005,08/29/2004 Seasonal Influenza, Quadriva lent Hd (Fluzone Hd) 06/02/2024 Seasonal Influenza, Quadriva lent Hd, 65+ Yrs 05/07/2022 Seasonal Influenza, Trivalen t, Adjuvanted, 65+ YRS, PF, (Fluad) 05/31/2020 documented as of this encounter Social [...] of Binge Drinking Not on file 11/26 Comments No Sex and Gender Information Value Date Recorded Sex Assigned at Not on file Legal Sex Female 6:22 AM EST Gender Identity Not on file Sexual Orientation Not on file documented as of this encounter Last Filed Vital Signs Vital Sign Reading Time Taken Comments Blood Pressure 128/72 07/17/2024 1:00 PM EST Pulse - - Temperature - - Respiratory Rate - - Oxygen Saturation - - Inhaled Oxygen Concentration - - Weight - - Height - - Body Mass Index - - documented in this encounter Progress Notes * Giuliano Tolentino MD - 07/17/2024 1:09 PM EST Subjective: Patient seen today for further follow up evaluation of osteoarthritis, raynaud's, scleroderma - limited. Since the last visit she reports that her raynaud's has been stable. No MILLER or dysphagia. She reports since last visit she spent 30+ days in the hospital over the last year. She had pancreatitisfrom gall stones and then diverticulitis and c diff. She was treated with 1 month of vanco after being diagnosed with C diff. She continues to deal with her back and knee pains. Sees ortho in [place]. She has a brace for the right leg but that is more for weakness in that leg from her back. She hassome numbness to the her right leg. She does get back injections that help the back pain more than her right knee pain. She thinks it has been several yrs since she had a dexa Musculoskeletal ROS: . Abnormal: joint pain and back pain . Pain scale (0-10): 5 Other ROS: . Constitutional: normal . Head normal . Eyes: normal . Ears, nose, throat, mouth: normal . Cardiovascular: normal . Respiratory: normal . Gastrointestinal: normal . Genitourinary: normal . Skin: see above . Neuro: see above All other ros reviewed and negative Social History: Social History Tobacco Use Smoking status: Never Smokeless tobacco: Never Substance Use Topics Alcohol use: No Vaping/E-Cigarette Use Vaping/E-Cigarette Use Never User Vaping/E-Cigarette Substances Vaping/E-Cigarette Devices Current Outpatient Medications Medication Sig Dispense Refill NEXIUM 40 MG PO CPDR Take by mouth daily before dinner. 30 0 LORAzepam (ATIVAN) 0.5 MG Tablet 1 twice daily Cholecalciferol (VITAMIN D3) 89645 units Capsule Take 1 Capsule by mouth. 1 monthly amLODIPine Besylate 5 MG Oral Tablet (NORVASC) 1 Tablet every morning. 1 daily Metoprolol Succinate ER 25 MG Oral Tablet Extended Release 24 Hour (toPROL XL) 2 times a day. Amoxicillin 500 MG Oral Capsule (Amoxil) As needed for dentist Losartan Potassium 50 MG Oral Tablet (Cozaar) at bedtime. Furosemide 20 MG Oral Tablet (Lasix) Take by mouth daily. Linzess 145 MCG Oral Capsule 1 daily (Patient not taking: Reported on 07/17/2024) No current facility-administered medications for this visit. Physical Exam: BP 128/72 General: alert, no distress, and well nourished Neck: supple, no adenopathy, thyroid normal size, non-tender, without nodularity Lymph: no palpable lymphadenopathy Heart: regular rate & rhythm and no gallops Lungs: clear to auscultation , no rales, wheezes or rhonchi Abdomen: abdomen soft, non-tender, and normal bowel sounds Extremities: no clubbing, no cyanosis Skin: skin color, texture, turgor are normal, no rashes or significant lesions Musculoskeletal Exam: Wearing a right leg/knee brace Good muscle strength for hip flexors and deltoids No synovitis of the hands Assessment: (M34.9) Scleroderma (HCC) (primary encounter diagnosis) (M17.0) Primary osteoarthritis of both knees (I73.00) Raynaud's disease without gangrene (M81.0) Senile osteoporosis Most of her issues is related to osteoarthritis of her knees and low back. Scleroderma and Raynaud's are stable. She thinks it has been several years since she had a DEXA so will get an updated scan. Plan: 1. Will get updated labs-orders placed 2. Will update DEXA 3. Remains on Norvas 4. Return to clinic in 1 year Giuliano Tolentino MD Department of Rheumatology documented in this encounter Nursing Notes * Jaclyn Alvares LPN - 07/17/2024 1:02 PM EST Chief Complaint Patient presents with Rheum Follow Up Scleroderma documented in this encounter Plan of Treatment Upcoming Encounters Date Type Department Care Team (Late st Contact Info) Description 08/13/2025 10:20 AM EST Office Visit Rheumatology [address] [place] [address] Giuliano Tolentino MD [email or web address] [facility], [place] [address] Pending Results Name Type Priority Associated Diagnoses Date /Time CBC WITH WBC DIFFERENTIAL Lab Routine Scleroderma ([facility]) 07/17/2024 1:37 PM EST COMPREHENSIVE METABOLIC PANEL Lab Routine Scleroderma ([facility]) 07/17/2024 1:37 PM EST 25-HYDROXY VITAMIN D Lab Routine Scleroderma ([facility]) Senile osteoporosis 07/17/2024 1:37 PM EST ERYTHROCYTE SEDIMENTATION RATE (ESR) Lab Routine Scleroderma ([facility]) 07/17/2024 1:37 PM EST Scheduled Orders Name Type Priority Associated Diagnoses Orde r Schedule DEXA SCAN/BONE MINERAL AXIAL Medical Imaging Routine Senile osteoporosis Expected: 07/17/2024, Expires: 08/17/2025 CBC WITH WBC DIFFERENTIAL Lab Routine Scleroderma ([facility]) Expected: 07/17/2024, Expires: 07/17/2025 COMPREHENSIVE METABOLIC PANEL Lab Routine Scleroderma ([facility]) Expected: 07/17/2024, Expires: 07/17/2025 25-HYDROXY VITAMIN D Lab Routine Scleroderma ([facility]) Senile osteoporosis Expected: 07/17/2024, Expires: 07/17/2025 ERYTHROCYTE SEDIMENTATION RATE (ESR) Lab Routine Scleroderma ([facility]) Expected: 07/17/2024, Expires: 07/17/2025 Health Maintenance Due Date Last Done Comments DXA Scan 1943 GFR 1943 Depression Screening 1955 Albumin/Creatinine Ratio 1961 CKD HGB USE SMARTSET 93021 1961 CKD PHOS USE SMARTSET 30076 1961 DTap/Tdap Vaccines (1 - Tdap) 1962 Zoster Vaccines (1 of 2) 1993 Pneumococcal Vaccine: 65+ Years (2 of 2 - PCV) 07/02/2008 07/02/2007 COVID-19 Vaccine (3 - season) 2024 10/08/2020, 09/10/2020 Influenza Vaccine (FLU shot) Completed 11/2023, 06/12/2023, 05/07/2022, Additional history exists HPV (Gardasil) Vaccine Aged Out No lo nger eligible based on patient's age to complete this topic Hepatitis B Vaccine Aged Out No longe r eligible based on patient's age to complete this topic MENINGOCOCCAL (MENACTRA/MENVEO) Aged Out No longer eligible based on patient's age to complete this topic documented as of this encounter Medical Devices Not on filedocumented as of this encounter Visit Diagnoses Diagnosis Scleroderma (HCC)- Primary Systemic sclerosis Primary osteoarthritis of both knees Primary localized osteoarthrosis, lower leg Raynaud's disease without gangrene Senile osteoporosis documented in this encounter Care Teams Computer Systems Support Specialist Relationship Specialty Start Date End Date Peter Stark MD [address] [place] [address] PCP - General 07/12/05 documented as of this encounter
--- OUTSIDE RECORDS SUMMARY | 2024-07-26 10:44 | External Medical Summary ---
Author Name Unknown Address Unknown Organization [id number]:[place] [facility] [place] [address] [facility] [address] [place] [address] Laboratory Report Ordering Provider Test Date Status ZEE HIRSCH 07/17/2024 13:37:36 Final Observation Date Value Abnormality Reference (Units ) Status SYNC LEUKOCYTES IN BLOOD BY AUTOMATED COUNT 07/17/2024 13:37:36 13.94 Above high normal 4.00-10.80 (K/uL) Final Segs 07/17/2024 13:37:36 71.8 40.0-75.0 (%) Final Lymphs % 07/17/2024 13:37:36 18.7 18.0-42.0 (%) Final Monos 07/17/2024 13:37:36 8.2 1.0-11.0 (%) Final Eosinophils 07/17/2024 13:37:36 0.4 0.0-6.0 (%) Final Basos 07/17/2024 13:37:36 0.6 0.0-2.0 (%) Final Immature Granulocyte, Percent 07/17/2024 13:37:36 0.3 0.0-2.0 (%) Final Absolute Segs 07/17/2024 13:37:36 10.02 Above high normal 1.80-7.70 (K/uL) Final Lymphs, absolute 07/17/2024 13:37:36 2.60 1.00-4.80 (K/ul) Final Monos, Abs 07/17/2024 13:37:36 1.14 Above high normal 0.00-1.10 (K/uL) Final Eos, Abs 07/17/2024 13:37:36 0.06 0.00-0.70 (K/uL) Final Basos, Abs 07/17/2024 13:37:36 0.08 0.00-0.20 (K/uL) Final Immature Granulocytes, Number 07/17/2024 13:37:36 0.04 0.00-0.20 (K/uL) Final Performing Location [place] [facility] [place] [facility] [address] [facility] [address]
--- OUTSIDE RECORDS SUMMARY | 2024-07-26 10:44 | External Medical Summary ---
Author Name Unknown Address Unknown Organization K01:LABORATORY [facility] [place] - [facility] [address] [facility] [address] Laboratory Report Ordering Provider Test Date Status ZEE HIRSCH 07/17/2024 13:37:36 Final Observation Date Value Abnormality Reference (Units ) Status WBC, Total 07/17/2024 13:37:36 13.94 Above high normal 4.00-10.80 (K/uL) Final RBC 07/17/2024 13:37:36 3.85 3.85-5.15 (M/uL) Final Hemoglobin 07/17/2024 13:37:36 11.2 Below low normal 12.0-15.3 (g/dL) Final HCT 07/17/2024 13:37:36 35.5 Below low normal 36.0-45.2 (%) Final MCV 07/17/2024 13:37:36 92.2 81.5-97.5 (fL) Final MCH 07/17/2024 13:37:36 29.1 27.0-34.0 (pg) Final MCHC 07/17/2024 13:37:36 31.5 32.0-36.0 (g/dL) Final RDW 07/17/2024 13:37:36 12.5 11.5-15.5 (%) Final Platelets 07/17/2024 13:37:36 274 140-400 (K/uL) Final MPV 07/17/2024 13:37:36 10.5 6.6-11.1 (fL) Final Nucleated erythrocytes/100 leukocytes [Ratio] in Blood by Automated count 07/17/2024 13:37:36 0 <=0 (/100 WBCs) Final Performing Location LABORATORY [facility] [place] - [address] [place] [address]
--- OUTSIDE RECORDS SUMMARY | 2024-07-26 10:44 | External Medical Summary | Summary of Care ---
Author Name Unknown Organization [facility] Address [address] [facility] [place] [address] Phone [phone] Care Team Providers Care Victim Witness Administrator Name Role Phone Peter Stark MD Primary Care Provider [phone] Reason for Visit * Reason Comments Outpatient Testing Encounter Details Date Type Department Care Team (Late st Contact Info) Description 07/17/2024 1:30 PM EST [facility] [address] [facility] [place] [phone] [facility] [address] [facility] [place] [address] Scleroderma (HCC); Senile osteoporosis Allergies Active Allergy Reactions Criticality [...] twice daily 11/24/2018 Active Cholecalciferol (VITAMIN D3) 23522 units Capsule Take 1 Capsule by mouth. 1 monthly Active amLODIPine Besylate 5 MG Oral Tablet (NORVASC) 1 Tablet every morning. 1 daily 04/21/2020 Active Metoprolol Succinate ER 25 MG Oral Tablet Extended Release 24 Hour (toPROL XL) 2 times a day. 02/01/2021 Active Amoxicillin 500 MG Oral Capsule (Amoxil) As needed for dentist 06/12/2021 Active Linzess 145 MCG Oral Capsule 1 daily 05/29/2021 Active Losartan Potassium 50 MG Oral Tablet [...] 08/13/2025 10:20 AM EST Office Visit Rheumatology [facility] [address] [facility] [place] [address] Giuliano Tolentino MD [address] [place] [address] Pending Results Name Type Priority Associated Diagnoses Date /Time CBC WITH WBC DIFFERENTIAL Lab Routine Scleroderma ([facility]) 07/17/2024 1:37 PM EST COMPREHENSIVE METABOLIC PANEL Lab Routine Scleroderma ([facility]) 07/17/2024 1:37 PM EST 25-HYDROXY VITAMIN D Lab Routine Scleroderma ([facility]) Senile osteoporosis 07/17/2024 1:37 PM EST ERYTHROCYTE SEDIMENTATION RATE (ESR) Lab Routine Scleroderma ([facility]) 07/17/2024 1:37 PM EST CBC Lab Routine Scleroderma ([facility]) 07/17/2024 1:37 PM EST DIFFERENTIAL, AUTOMATED Lab Routine Scleroderma ([facility]) 07/17/2024 1:37 PM EST Health Maintenance Due Date Last Done Comments DXA Scan 1943 GFR 1943 Depression Screening 1955 Albumin/Creatinine Ratio 1961 CKD HGB USE SMARTSET 32016 1961 CKD PHOS USE SMARTSET 83056 1961 DTap/Tdap Vaccines (1 - Tdap) 1962 [...] of this encounter Visit Diagnoses Diagnosis Scleroderma (HCC) Systemic sclerosis Senile osteoporosis documented in this encounter Care Teams Victim Witness Administrator Relationship Specialty Start Date End Date Peter Stark MD [address] [place] [address] PCP - General 07/12/05 documented as of this encounter
--- OUTSIDE RECORDS SUMMARY | 2024-07-26 10:44 | External Medical Summary ---
Author Name Unknown Address Unknown Organization [id number]:LABORATORY [facility] [place] - [address] [facility] [address] [address] Laboratory Report Ordering Provider Test Date Status ZEE HIRSCH 07/17/2024 13:37:36 Final Observation Date Value Abnormality Reference (Units ) Status BUN 07/17/2024 13:37:36 14 6-20 (mg/dL) Final Creatinine 07/17/2024 13:37:36 1.3 Above high normal 0.5-1.0 (mg/dL) Final Glomerular filtration rate/1.73 sq M.predicted [Volume Rate/Area] in Serum, Plasma or Blood by Creatinine-based formula (CKD-EPI) 07/17/2024 13:37:36 42 Below low normal >=60 (mL/min) Final eGFR is calculated based on the CKD-EPI 2020 equation. Sodium 07/17/2024 13:37:36 139 135-146 (m mol/L) Final Potassium 07/17/2024 13:37:36 3.9 3.5-5.1 (m mol/L) Final Cl 07/17/2024 13:37:36 103 98-107 (mm ol/L) Final CO2 07/17/2024 13:37:36 23 22-32 (mmo l/L) Final Anion gap 07/17/2024 13:37:36 13 7-15 (mmol /L) Final Glucose 07/17/2024 13:37:36 91 70-120 (mg /dL) Final Albumin 07/17/2024 13:37:36 4.1 3.8-5.0 (g /dL) Final AST (Aspartate aminotransferase) 07/17/2024 13:37:36 16 10-35 (U/L) Fin al Alk Phos 07/17/2024 13:37:36 95 35-130 (U/ L) Final Bilirubin, Total 07/17/2024 13:37:36 0.3 <=1 .2 (mg/dL) Final Calcium 07/17/2024 13:37:36 9.4 8.4-10.2 ( mg/dL) Final Protein 07/17/2024 13:37:36 7.0 6.0-8.3 (g /dL) Final ALT (Alanine aminotransferase) 07/17/2024 13:37:36 7 Below low normal 10-35 (U/L) Final Performing Location LABORATORY [facility] [place] - [address] [facility] [address]
--- NOTE | 2024-07-26 11:55 | Emergency Department Note ---
Impression & Plan Diverticulitis, Abdominal pain, acute, left lower quadrant ED Provider Note NAME: LULÚ LIMA AGE: 78 SEX: F : 1945 ARRIVES VIA: Walk-In INFORMANT: Patient, ED PROVIDER(S): David Gandhi DO CHIEF COMPLAINT: Abdominal pain HPI: The patient is an 78-year-old female who presented to the emergency department for an evaluation of abdominal pain. The patient noticed left side abdominal pain this been going on for the last few days. It worsened over the last 24 hours. The patient has a history of similar episode in the past. She was treated with antibiotics but also developed C. difficile. The patient denies having any diarrhea or rectal bleeding at this time. She denies having any chest pain or difficulty breathing. She states the pain is worsened with ambulation as well as palpation of her lower abdomen. ROS: See above HPI for pertinent positives & negatives. A total of 10 systems reviewed and were otherwise negative. PAST MEDICAL HISTORY: See Below PAST SURGICAL HISTORY: See Below FAMILY HISTORY: See Below SOCIAL HISTORY: See Below HOME MEDICATIONS: See Below ALLERGIES: See Below VITALS: See Below PHYSICAL EXAMINATION: GENERAL: Patient is awake alert in no acute distress patient is resting comfortably and showing no signs of anxiety EYES: The conjunctivae are clear. The pupils are round and reactive. EARS, NOSE, MOUTH AND THROAT: The nose is without any evidence of any deformity. NECK: The neck is nontender and supple. RESPIRATORY: Normal respiratory effort is noted there is no evidence of wheezing rhonchi or rales CARDIOVASCULAR: Regular rate and rhythm noted there no murmurs rubs or gallops normal S1 normal S2. GASTROINTESTINAL: The abdomen is distended. There is tenderness in the left abdomen. There is mild guarding in the left lower quadrant. MUSCULOSKELETAL/EXTREMITIES: There is no evidence of gross deformity full range of motion is noted in the hips and shoulders. SKIN: There is no obvious evidence of any rash. There are no petechiae, pallor or cyanosis noted. NEUROLOGIC: Patient is awake alert and oriented x3 MEDICAL DECISION MAKING: The patient is an 78-year-old female who presented to the emergency department for an evaluation of abdominal pain. The patient has a history of diverticulitis in the past. She started noticing the lower abdominal tenderness and then it started to localize on her left side. The patient was found to have a very elevated white blood cell count. Given her age and comorbidities further radiographic studies were obtained and the patient was started on IV antibiotics. She was also treated with IV fluids and IV pain medication. She was somewhat improved but given her findings I do feel the patient might require inpatient management to ensure this does not get worse. For this reason I discussed her condition with the on-call [facility] hospitalist. They have agreed to evaluate the patient in the emergency department for further management and disposition. Triage Nursing notes reviewed. Prior medical records reviewed Vital Signs: reviewed and remarkable for no significant abnormalities Differential diagnosis: Etiologies such as appendicitis, diverticulitis, obstruction, inflammatory bowel disease, renal colic, PUD, biliary pathology, pancreatitis, mesenteric ischemia, aortic pathology, infections, genitourinary, UTI, perforated viscus, as well as others were entertained. ER treatment provided: See below Diagnostics interpreted by me: ECG: EKG was obtained in the emergency department. My interpretation is sinus rhythm at 82 bpm. Ectopic atrial beats were noted. There is no acute ST segment abnormalities noted. This was compared to a tracing from March 15, 2024. The ectopic atrial beats are new compared to previous otherwise no changes were noted. Cardiac Monitoring: An order was placed for continuous cardiac monitoring. The monitor shows a rate of 85 bpm with sinus rhythm. Laboratory studies: As stated above and show below. Imaging studies: See below. Radiographic imaging was reviewed by myself Consultation(s): I discussed this case with Dr. Ponce who is on-call for the [facility] group. Past Med/Surg History Problem List (Updated 07/26/24 @ 16:13 by David Gandhi DO) Abdominal pain, acute, left lower quadrant (Acute) Diverticulitis (Acute) Chronic constipation History of diverticulitis Lyme disease Acute kidney injury superimposed on chronic kidney disease Abdominal pain, lower (Acute) Colitis (Acute) Sepsis Colitis (Acute) C. difficile colitis Proctocolitis Diarrhea GINA (acute kidney injury) (Acute) Hypokalemia (Acute) Diverticulitis (Acute) Cholecystitis Weight gain Nausea and vomiting Hypomagnesemia Hypokalemia Gallstones Dilated pancreatic duct Back pain (Acute) Pancreatitis (Acute) Acute pancreatitis Abdominal pain (Acute) Abnormal weight loss Odynophagia Encounter for pre-operative examination Acute diverticulitis Slow transit constipation Peripheral vascular disease Hyperlipidemia Fibromyalgia Depression Scleroderma Hyponatremia (Chronic) Vitamin D deficiency (Chronic) Hypertension Chronic kidney disease, stage III (moderate) (Chronic) 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"; F/U DR PATEL Medical History Chronic back pain Poor intravenous access veins roll and are very small, also pt has been dehyrated at times due to the Cdiff, veins have been very difficult to find since Cdiff infection > U.S machine had to be used in recent past White coat syndrome with diagnosis of hypertension HTN (hypertension) Hx of Lyme disease unsure when it happened, discovered during hospital stay Hx of pancreatitis hospitalized at [place] Jul 2023, had sepsis with it Diverticular disease C. difficile colitis dx 02/28/24, [facility] for this, still some loose stool but much improved since start of [place] Chronic kidney disease, stage III (moderate) follows with Dr. Patel GERD without esophagitis Hx of cardiac murmur has had since age 3, "it comes and goes"; f/u dr. augustine, s Scleroderma Peripheral vascular disease Depression Fibromyalgia GERD (gastroesophageal reflux disease) Spinal stenosis Anxiety "has white coat syndrome and blood pressure can get really high" Secondary hyperparathyroidism Positive NAREN (antinuclear antibody) Hyperkalemia Hypercalcemia Anemia Surgical History S/P epidural steroid injection Hx of right cataract extraction History of cholecystectomy History of left cataract extraction History of dilatation and curettage History of esophagogastroduodenoscopy (EGD) History of breast biopsy RIGHT BENIGN History of hysterectomy History of appendectomy History of tonsillectomy H/O colonoscopy Family History Other No known health problems Social History Smoking Status: Never smoker Second Hand Exposure: No; Do You Dip or Chew Tobacco: No; Hx Alcohol Use: No Hx Substance Use: No Preferred Language: [place] Communication Ability: Effective Medic Technician Required: No Beliefs That Will Affect Care: None Current Living Situation: Spouse current occupational status: retired Feels Safe at Home: Yes Assistive Devices: Glasses and Walker Allergies Allergies Allergy/AdvReac Type Severity Reaction Status Date / Time atropine [From ] Allergy Intermediate Hives Verified 05/06/24 10:09 cimetidine [From Tagamet] Allergy Intermediate Hives Verified 05/06/24 10:09 hyoscyamine [From ] Allergy Intermediate Hives Verified 05/06/24 10:09 Iodinated Contrast Media Allergy Intermediate Hives Verified 05/06/24 10:09 [Iodinated Contrast- Oral and IV Dye] nitrofurantoin Allergy Intermediate Rash Verified 05/06/24 10:09 [From Macrobid] phenobarbital [From ] Allergy Intermediate Hives Verified 05/06/24 10:09 regadenoson Allergy Intermediate loss of Verified 05/06/24 10:09 vision, low Blood pressure scopolamine [From ] Allergy Intermediate Hives Verified 05/06/24 10:09 ketoprofen [From Orudis] Allergy Mild Rash Verified 05/06/24 10:09 diltiazem AdvReac Intermediate Hallucinati Verified 05/06/24 10:09 ng doxepin AdvReac Intermediate Hallucinati Verified 05/06/24 10:09 ng doxycycline AdvReac Intermediate Heartburn Verified 05/06/24 10:09 duloxetine [From Cymbalta] AdvReac Intermediate Swelling Verified 05/06/24 10:09 hydrocodone AdvReac Intermediate Dizziness Verified 05/06/24 10:09 lisinopril [From Zestril] AdvReac Intermediate Swelling Verified 05/06/24 10:09 pantoprazole [From Protonix] AdvReac Intermediate Dizziness Verified 05/06/24 10:09 Home Meds Home Medications Medication Instructions Recorded Confirmed lorazepam 0.5 mg tablet 0.5 mg PO DAILY PRN Anxiety 04/14/21 07/26/24 metoprolol succinate 25 mg 25 mg PO BID 04/14/21 07/26/24 tablet,extended release 24 hr acetaminophen 500 mg tablet 1,000 mg PO Q6H PRN Back Pain 04/27/21 07/26/24 (Tylenol Extra Strength) losartan 100 mg tablet 100 mg PO QAM 05/13/23 07/26/24 amlodipine 10 mg tablet 10 mg PO QAM 08/05/23 07/26/24 famotidine 20 mg tablet 20 mg PO BID 03/16/24 07/26/24 furosemide 20 mg tablet 20 mg PO QAM Fluid Retention 03/16/24 07/26/24 potassium gluconate 500 mg (83 mg) 500 mg PO QAM 04/16/24 07/26/24 tablet polyethylene glycol 3350 17 gram 17 g PO DAILY PRN Constipation 07/26/24 07/26/24 oral powder packet (Miralax) Results & Data (ED) Vital Signs Vital Signs - 24 hr 07/26/24 11:00 07/26/24 11:35 07/26/24 11:35 Temperature 36.6 C Temperature Source Temporal Artery Scan Pulse Rate 82 83 Pulse Rate [Right Finger] 82 Pulse Rhythm Regular Regular Pulse Rhythm [Right Finger] Regular Pulse Strength Normal Pulse Strength [Right Finger] Normal Respiratory Rate 20 22 17 Respiratory Effort / Characteristics Non-Labored Spontaneous Non-Labored Respiratory Depth Normal Normal Respiratory Pattern Regular Regular Blood Pressure 201/77 H Blood Pressure [Left Arm] 176/84 H Blood Pressure Mean 118 Blood Pressure Mean [Left Arm] 114 Blood Pressure Position Lying Blood Pressure Position [Left Arm] Lying Pulse Oximetry 99 97 97 Oxygen Delivery Method Room Air Room Air Room Air Sepsis Recent Fever Within 48 Hours No Sepsis New/Unexplained Change in Mental Status No Sepsis Action Taken by Nursing No Action Required 07/26/24 11:37 07/26/24 13:05 07/26/24 15:06 Temperature Temperature Source Pulse Rate 82 Pulse Rate [Right Finger] 99 H 87 Pulse Rhythm Pulse Rhythm [Right Finger] Regular Regular Pulse Strength Pulse Strength [Right Finger] Normal Normal Respiratory Rate 19 Respiratory Effort / Characteristics Non-Labored Respiratory Depth Normal Respiratory Pattern Regular Blood Pressure Blood Pressure [Left Arm] 165/75 H 141/65 H Blood Pressure Mean Blood Pressure Mean [Left Arm] 105 90 Blood Pressure Position Blood Pressure Position [Left Arm] Lying Lying Pulse Oximetry 93 Oxygen Delivery Method Room Air Sepsis Recent Fever Within 48 Hours Sepsis New/Unexplained Change in Mental Status Sepsis Action Taken by Nursing 07/26/24 15:46 Temperature Temperature Source Pulse Rate 85 Pulse Rate [Right Finger] Pulse Rhythm Pulse Rhythm [Right Finger] Pulse Strength Pulse Strength [Right Finger] Respiratory Rate Respiratory Effort / Characteristics Respiratory Depth Respiratory Pattern Blood Pressure Blood Pressure [Left Arm] Blood Pressure Mean Blood Pressure Mean [Left Arm] Blood Pressure Position Blood Pressure Position [Left Arm] Pulse Oximetry Oxygen Delivery Method Sepsis Recent Fever Within 48 Hours Sepsis New/Unexplained Change in Mental Status Sepsis Action Taken by [facility] Medications Current Medication List: was personally reviewed by me Laboratory Data Attestation: I reviewed the patient's lab results. 07/26/24 11:04 07/26/24 11:04 Lab Results 07/26/24 07/26/24 Range/Units 11:04 12:56 WBC 24.32 H (4.8-10.8) K/ul RBC 3.86 L (4.20-5.40) M/uL Hgb 10.8 L (12.0-16.0) g/dl Hct 33.1 L (37.0-47.0) % MCV 85.8 (80.0-100.0) fL MCH 28.0 (25.0-34.0) pg MCHC 32.6 (32.0-36.0) g/dL RDW Std Deviation 39.7 (36.4-46.3) fL RDW Coeff of Jordi 12.8 (11.5-14.5) % Plt Count 312 (130-400) K/uL MPV 9.3 L (9.4-12.4) fL Immature Gran % (Auto) 0.6 % Neut % (Auto) 82.8 % Lymph % (Auto) 8.9 % [place] % (Auto) 7.3 % Eos % (Auto) 0.1 % Baso % (Auto) 0.3 % Neut # (Auto) 20.15 H (1.40-6.50) K/uL Lymph # (Auto) 2.16 (1.20-3.40) K/uL [place] # (Auto) 1.77 H (0.11-0.59) K/uL Eos # (Auto) 0.03 (0.00-0.50) K/uL Baso # (Auto) 0.07 (0.00-0.20) K/uL Immature Gran # (Auto) 0.14 (0.01-0.20) K/uL Sodium 137 (136-145) mmol/L Potassium 4.1 (3.5-5.1) mmol/L Chloride 102 (98-107) mmol/L Carbon Dioxide 27 (21-32) mmol/L Anion Gap 8 (3-11) BUN 16 (6-23) mg/dl Creatinine 1.23 H (0.6-1.2) mg/dl Est Cr Clr Drug Dosing 31.5 ml/min eGFR 44.42 BUN/Creatinine Ratio 13.0 (10-20) Glucose 110 H (70-99(Fasting)) mg/dl Calcium 9.3 (8.6-10.3) mg/dl Total Bilirubin 0.5 (0.2-1.0) mg/dl AST 13 (13-39) U/L ALT 7 (7-52) U/L Alkaline Phosphatase 83 (34-104) U/L Troponin I High Sens 18.6 H (0-14) pg/ml Total Protein 7.5 (6.0-8.3) gm/dl Albumin 3.7 (3.4-5.0) gm/dl Globulin 3.8 (2.5-4.0) gm/dl Albumin/Globulin Ratio 1.0 (0.9-2) Lipase 20 (11-82) U/L Urine Color Yellow Urine Appearance Clear (Clear) Urine pH 6.0 (4.5-7.5) Ur Specific [place] 1.007 (1.000-1.030) Urine Protein Trace H (Negative) Urine Glucose (UA) Negative (Negative) Urine Ketones Negative (Negative) Urine Blood Negative (Negative) Urine Nitrite Negative (Negative) Urine Bilirubin Negative (Negative) Urine Urobilinogen Negative (Negative) Ur Leukocyte Esterase Negative (Negative) Urine WBC (Auto) 0-5 (0-5) /hpf Urine RBC (Auto) 0-2 (0-2) /hpf U Hyaline Cast (Auto) 0-2 (0-2) /lpf U Epithel Cells (Auto) 0-2 (0-2) /hpf Urine Bacteria (Auto) None Seen (None Seen) Administered Medications Hydromorphone HCl (Hydromorphone Inj 0.5 Mg/0.5 Ml Syr) 0.5 mg IV Q15M PRN PRN Reason: Pain Stop: 08/09/24 14:48 Last Admin: 07/26/24 14:54 Dose: 0.5 mg Documented By: MARIA ESTHER Discontinued Medications Sodium Chloride (Nss) 500 mls @ 999 mls/hr IV .Q31M ONE Stop: 07/26/24 12:20 Last Infusion: 07/26/24 12:41 Dose: Infused Documented By: Admin: 07/26/24 12:07 Dose: 999 mls/hr Documented By: ADONAY Piperacillin Sod/Tazobactam Sod (Zosyn) 4.5 gm in 100 mls @ 200 mls/hr IV NOW ONE; Protocol Stop: 07/26/24 13:19 Last Infusion: 07/26/24 14:09 Dose: Infused Documented By: Admin: 07/26/24 12:59 Dose: 200 mls/hr Documented By: ADONAY Morphine Sulfate (Morphine Sulfate 4 Mg/Ml 1 Ml Carp\\Vial) 4 mg IV NOW STA Stop: 07/26/24 11:51 Last Admin: 07/26/24 12:02 Dose: 4 mg Documented By: ADONAY Ondansetron HCl (Ondansetron Inj 2 Mg/Ml 2 Ml Vial) 4 mg IV NOW STA Stop: 07/26/24 11:51 Last Admin: 07/26/24 12:02 Dose: 4 mg Documented By: ADONAY Imaging Data Attestation: I personally reviewed and interpreted this imaging study as follows: My Impression: See T of the abdomen and pelvis was obtained in the emergency department. My interpretation is no free air, stranding in the left colon was noted, final report below. Radiologist's Impression: Abdomen/Pelvis CT 07/26/24 11:37 CT abd pelvis wo con CLINICAL HISTORY: left flank pain TECHNIQUE: Helical axial images of the abdomen and pelvis were obtained. Automated dose lowering techniques and/or adjustment according to patient size were utilized for this exam. This exam was performed without intravenous contrast. CT DOSE: 483.96 mGy.cm COMPARISON: Comparison is made to CT abdomen pelvis 02/25/2024 FINDINGS: Lower chest: Bibasilar atelectasis versus scarring is seen. Liver: Hepatic cysts are seen. Gallbladder and biliary tree: Patient is status post cholecystectomy. No intra- or extrahepatic biliary ductal dilation. Pancreas: Unremarkable, no focal lesions. Spleen: Unremarkable. Adrenals: Unremarkable. Kidneys and ureters: Unremarkable. Bladder: Unremarkable. Reproductive organs: Patient is status post hysterectomy. Bowel: Numerous diverticula are seen. There is bowel wall thickening, fat stranding, and increased vascularity and regional mesenteric lymphadenopathy in the sigmoid colon. A small hiatal hernia is seen. Lymph nodes Retroperitoneal: Unremarkable. Pelvic: Unremarkable. Mesenteric: Subcentimeter left lower quadrant lymph nodes are seen. Peritoneum: Increased vascularity and fat stranding in the left lower quadrant about the sigmoid colon. No drainable fluid collection is seen. No pneumoperitoneum. Vessels: Atherosclerotic calcifications are seen. Abdominal wall: Unremarkable. Bones: Degenerative changes in the visualized spine. IMPRESSION: Findings are compatible with acute diverticulitis without evidence of perforation or abscess. ACT 112: Negative or not required by law. Electronically signed by: Gianluca Jones M.D. 07/26/2024 12:45 PM Discharge Plan Visit Data Chief Complaint: Abdominal Pain Stated Complaint: L SIDE PAIN, BOWELS NOT MOVING NORMAL ED Provider: David Gandhi Discharge Problem: Diverticulitis, Abdominal pain, acute, left lower quadrant Patient Disposition: Being Evaluated by Hospitalist Forms Stand Alone Forms: [facility] Records Management Prescriptions Prescriptions: No Action lorazepam 0.5 mg tablet 0.5 mg PO DAILY PRN (Reason: Anxiety) metoprolol succinate 25 mg tablet extended release 24 hr 25 mg PO BID acetaminophen [Tylenol Extra Strength] 500 mg Tablet 1,000 mg PO Q6H PRN (Reason: Back Pain) losartan 100 mg Tablet 100 mg PO QAM amlodipine 10 mg tablet 10 mg PO QAM potassium gluconate 500 mg (83 mg) Tablet 500 mg PO QAM famotidine 20 mg tablet 20 mg PO BID furosemide 20 mg tablet 20 mg PO QAM polyethylene glycol 3350 [Miralax] 17 gram Powder In Packet 17 g PO DAILY PRN (Reason: Constipation) Referrals Referrals: Peter Stark [Primary Care Provider] -
[2024-07-26] MEDS: ONDANSETRON INJ 2 MG/ML 2 ML VIAL IV STA (12:02)
[2024-07-26] MEDS: MoRPHine SULFATE 4 MG/ML 1 ML CARP\\VIAL IV STA (12:02)
[2024-07-26 12:05] LABS: Hematocrit (blood only) 33.1 % (37.0-47.0); Hemoglobin 10.8 g/dl (12.0-16.0); Mean Corpuscular Hgb Conc 32.6 g/dL (32.0-36.0); Mean Corpuscular Volume 85.8 fL (80.0-100.0); Mean Platelet Volume 9.3 fL (9.4-12.4); Platelet Count 312 K/uL (130-400); RDW Coefficient of Variation 12.8 % (11.5-14.5); RDW Standard Deviation 39.7 fL (36.4-46.3); Red Blood Count 3.86 M/uL (4.20-5.40); White Blood Count 24.32 K/ul (4.8-10.8)
[2024-07-26] MEDS: SODIUM CHLORIDE 0.9% 500 ML IV ONE (12:07)
[2024-07-26 12:19] LABS: Albumin Level 3.7 gm/dl (3.4-5.0); Bilirubin,Total 0.5 mg/dl (0.2-1.0); Calcium 9.3 mg/dl (8.6-10.3); Creatinine Clr Calc Pharmacy 31.5 ml/min; Globulin 3.8 gm/dl (2.5-4.0); Potassium 4.1 mmol/L (3.5-5.1); Total Protein 7.5 gm/dl (6.0-8.3)
[2024-07-26 12:23] LABS: Basophils # (auto) 0.07 K/uL (0.00-0.20); Basophils % (auto) 0.3 %; Eosinophils # (auto) 0.03 K/uL (0.00-0.50); Eosinophils % (auto) 0.1 %; Immature Granulocytes # (auto) 0.14 K/uL (0.01-0.20); Immature Granulocytes % (auto) 0.6 %; Lymphocytes # (auto) 2.16 K/uL (1.20-3.40); Lymphocytes % (auto) 8.9 %; Monocytes # (auto) 1.77 K/uL (0.11-0.59); Monocytes % (auto) 7.3 %; Neutrophils # (auto) 20.15 K/uL (1.40-6.50); Neutrophils % (auto) 82.8 %
[2024-07-26 12:26] LABS: Troponin I High Sensitivity 18.6 pg/ml (0-14)
--- NOTE | 2024-07-26 12:47 | CT Scan Report ---
CT abd pelvis wo con CLINICAL HISTORY: left flank pain TECHNIQUE: Helical axial images of the abdomen and pelvis were obtained. Automated dose lowering tech niques and/or adjustment according to patient size were utilized for this exam. This exam was perfor med without intravenous contrast. CT DOSE: 483.96 mGy.cm COMPARISON: Comparison is made to CT abdomen pelvis 02/25/2024 FINDINGS: Lower chest: Bibasilar atelectasis versus scarring is seen. Liver: Hepatic cysts are seen. Gallbladder and biliary tree: Patient is status post cholecystectomy. No intra- or extrahepatic bilia ry ductal dilation. Pancreas: Unremarkable, no focal lesions. Spleen: Unremarkable. Adrenals: Unremarkable. Kidneys and ureters: Unremarkable. Bladder: Unremarkable. Reproductive organs: Patient is status post hysterectomy. Bowel: Numerous diverticula are seen. There is bowel wall thickening, fat stranding, and increased va scularity and regional mesenteric lymphadenopathy in the sigmoid colon. A small hiatal hernia is seen . Lymph nodes Retroperitoneal: Unremarkable. Pelvic: Unremarkable. Mesenteric: Subcentimeter left lower quadrant lymph nodes are seen. Peritoneum: Increased vascularity and fat stranding in the left lower quadrant about the sigmoid colo n. No drainable fluid collection is seen. No pneumoperitoneum. Vessels: Atherosclerotic calcifications are seen. Abdominal wall: Unremarkable. Bones: Degenerative changes in the visualized spine. IMPRESSION: Findings are compatible with acute diverticulitis without evidence of perforation or abscess. ACT 112: Negative or not required by law. Electronically signed by: Gianluca Jones M.D. 07/26/2024 12:45 PM
[2024-07-26] MEDS: PIPERACILLIN/TAZOBACTAM 4.5 GM/100 ML BAG IV ONE (12:59)
[2024-07-26 13:27] LABS: Appearance Urine Clear (Clear); Bacteria Urine Automated None Seen (None Seen); Bilirubin Urine Negative (Negative); Blood Urine Negative (Negative); Cast Urine Automated 0-2 /lpf (0-2); Color Urine Yellow; Epithelial Cell Urine Auto 0-2 /hpf (0-2); Glucose Urine UA Negative (Negative); Ketones Urine Negative (Negative); Leukocyte Esterase Urine Negative (Negative); Nitrite Urine Negative (Negative); Protein Urine Trace (Negative); RBC Urine Automated 0-2 /hpf (0-2); Specific Gravity Urine 1.007 (1.000-1.030); Urobilinogen Urine Negative (Negative); WBC Urine Automated 0-5 /hpf (0-5)
[2024-07-26] MEDS: HYDROmorphone INJ 0.5 MG/0.5 ML SYR IV PRN ×2 (14:54→23:25)
--- NOTE | 2024-07-26 15:23 | Electrocardiogram Report ---
Test Reason : Blood Pressure : */* mmHG Vent. Rate : 82 BPM Atrial Rate : 82 BPM P-R Int : 156 ms QRS Dur : 72 ms QT Int : 340 ms P-R-T Axes : 60 34 79 degrees QTcB Int : 397 ms Sinus rhythm with Premature atrial complexes left atrial abnormality Cannot rule out Anterior infarct (cited on or before 24-Jan-2024) Abnormal ECG When compared with ECG of 16-Mar-2024 12:14, Premature atrial complexes are now Present Confirmed by Mary Allred (Amarilis) on 07/26/2024 3:23:26 PM Referred By: REFERRED SELF Confirmed By: Mary Allred
--- NOTE | 2024-07-26 16:43 | History & Physical Report ---
Date of Service July 26, 2024 Assessment & Plan (1) Diverticulitis: (2) Elevated troponin: (3) Chronic constipation: Admission and Anticipated Discharge Date Admission Date: This patient is an 78-year-old female with a history of recurrent acute diverticulitis, C. difficile colitis, chronic constipation/dyssynergic defecation, CKD stage III, HTN, GERD, anxiety who presents to the ER with severe left lower quadrant abdominal pain that started 1 day prior. She was found to have significant leukocytosis and acute sigmoid diverticulitis without abscess or microperforation on CT. #Acute diverticulitis/history of C. difficile colitis/chronic constipation This will be the patient's third episode of acute diverticulitis this year. She also has a history of C. difficile colitis after treatment with antibiotics for diverticulitis in 01/2024. She had a colonoscopy in 03/2024 which showed diverticulosis in the sigmoid colon and internal hemorrhoids but otherwise normal. She does follow with [facility] for her diverticulitis as well as chronic constipation, but also sees [facility] for follow-up on pancreatic cysts and a history of pancreatitis. Lipase here negative and pain in LLQ obviously corresponds with her diverticulitis. With leukocytosis of 24K, but otherwise no signs of sepsis. -Admit to medical floor with telemetry due to elevated troponin -Continue IV Zosyn -Start prophylactic vancomycin 125 Mg p.o. once daily to help prevent C. difficile given her history of such -Keep n.p.o. for now and reassess for advancement of diet based on clinical status -Continue maintenance IV fluids with normal saline with 20 mEq KCl at 80 mL/h -Follow CBC, CMP, magnesium and keep electrolytes replete -Check vitamin D level as low vitamin D can be associated with recurrent acute diverticulitis -Continue MiraLAX daily as needed as chronic constipation is also likely contributing to her recurrent acute diverticulitis #Elevated troponin Troponin minimally elevated 18. She has no chest pain. Her ECG is without ischemic changes. -Monitor on telemetry for 24 hours and if normal and serial troponin stabilizes or trends back downward, can downgrade off telemetry #CKD stage III Creatinine is around baseline at 1.23. She follows with [facility] neph[facility]. No acute issues at this time -Okay to continue home losartan -Avoid nephrotoxins and renally dose medications when necessary -Follow BMP in a.m. #HTN Blood pressures are quite elevated here secondary to pain and she reports whitecoat hypertension. She also did not take her morning medications -Continue home amlodipine, losartan, but hold home furosemide and potassium while n.p.o. -Monitor blood pressures #GERD No acute issues -Continue Pepcid DVT prophylaxis-SQ Lovenox, SCDs Disposition-admit to medical floor with telemetry. Discussed care with emma omalley/EVELINE at the bedside at the time of admission History of Present Illness Chief Complaint: Abdominal pain Primary Care Provider: Peter Stark This patient is an 78-year-old female with a history of recurrent acute diverticulitis, C. difficile colitis, chronic constipation/dyssynergic defecation, CKD stage III, HTN, GERD, anxiety who presents to the ER with severe left lower quadrant abdominal pain that started 1 day prior. She reports 3 to 4 days of not moving her bowels at all which is a chronic issue for her and initially she thought the abdominal pain was secondary to constipation. However it became severe and she presented to the ER. Tylenol was not helping the pain at home. She denies fevers or chills. She has a mild headache. Denies nausea/vomiting. Denies chest pains or shortness of breath. In the ER, she was found to have acute sigmoid diverticulitis, a significant leukocytosis of 24, and a mild elevation in troponin of 18. ECG without ischemic changes. Allergies Allergy/AdvReac Type Severity Reaction Status Date / Time atropine [From ] Allergy Intermediate Hives Verified 05/06/24 10:09 cimetidine [From Tagamet] Allergy Intermediate Hives Verified 05/06/24 10:09 hyoscyamine [From ] Allergy Intermediate Hives Verified 05/06/24 10:09 Iodinated Contrast Media Allergy Intermediate Hives Verified 05/06/24 10:09 [Iodinated Contrast- Oral and IV Dye] nitrofurantoin Allergy Intermediate Rash Verified 05/06/24 10:09 [From Macrobid] phenobarbital [From ] Allergy Intermediate Hives Verified 05/06/24 10:09 regadenoson Allergy Intermediate loss of Verified 05/06/24 10:09 vision, low Blood pressure scopolamine [From ] Allergy Intermediate Hives Verified 05/06/24 10:09 ketoprofen [From Orudis] Allergy Mild Rash Verified 05/06/24 10:09 diltiazem AdvReac Intermediate Hallucinati Verified 05/06/24 10:09 ng doxepin AdvReac Intermediate Hallucinati Verified 05/06/24 10:09 ng doxycycline AdvReac Intermediate Heartburn Verified 05/06/24 10:09 duloxetine [From Cymbalta] AdvReac Intermediate Swelling Verified 05/06/24 10:09 hydrocodone AdvReac Intermediate Dizziness Verified 05/06/24 10:09 lisinopril [From Zestril] AdvReac Intermediate Swelling Verified 05/06/24 10:09 pantoprazole [From Protonix] AdvReac Intermediate Dizziness Verified 05/06/24 10:09 Home Medications Medication Instructions Recorded Confirmed Type lorazepam 0.5 mg tablet 0.5 mg PO DAILY PRN Anxiety 04/14/21 07/26/24 History metoprolol succinate 25 mg 25 mg PO BID 04/14/21 07/26/24 History tablet,extended release 24 hr acetaminophen 500 mg tablet 1,000 mg PO Q6H PRN Back Pain 04/27/21 07/26/24 History (Tylenol Extra Strength) losartan 100 mg tablet 100 mg PO QAM 05/13/23 07/26/24 History amlodipine 10 mg tablet 10 mg PO QAM 08/05/23 07/26/24 History famotidine 20 mg tablet 20 mg PO BID 03/16/24 07/26/24 History furosemide 20 mg tablet 20 mg PO QAM Fluid Retention 03/16/24 07/26/24 History potassium gluconate 500 mg (83 mg) 500 mg PO QAM 04/16/24 07/26/24 History tablet polyethylene glycol 3350 17 gram 17 g PO DAILY PRN Constipation 07/26/24 07/26/24 History oral powder packet (Miralax) Past Med/Surg History Problem List (Updated 07/26/24 @ 16:46 by Trang Ponce MD) Elevated troponin Abdominal pain, acute, left lower quadrant (Acute) Diverticulitis (Acute) Chronic constipation History of diverticulitis Lyme disease Acute kidney injury superimposed on chronic kidney disease Abdominal pain, lower (Acute) Colitis (Acute) Sepsis Colitis (Acute) C. difficile colitis Proctocolitis Diarrhea GINA (acute kidney injury) (Acute) Hypokalemia (Acute) Diverticulitis (Acute) Cholecystitis Weight gain Nausea and vomiting Hypomagnesemia Hypokalemia Gallstones Dilated pancreatic duct Back pain (Acute) Pancreatitis (Acute) Acute pancreatitis Abdominal pain (Acute) Abnormal weight loss Odynophagia Encounter for pre-operative examination Acute diverticulitis Slow transit constipation Peripheral vascular disease Hyperlipidemia Fibromyalgia Depression Scleroderma Hyponatremia (Chronic) Vitamin D deficiency (Chronic) Hypertension Chronic kidney disease, stage III (moderate) (Chronic) 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"; F/U DR PATEL Medical History Chronic back pain Poor intravenous access veins roll and are very small, also pt has been dehyrated at times due to the Cdiff, veins have been very difficult to find since Cdiff infection > U.S machine had to be used in recent past White coat syndrome with diagnosis of hypertension HTN (hypertension) Hx of Lyme disease unsure when it happened, discovered during hospital stay Hx of pancreatitis hospitalized at [place] Jul 2023, had sepsis with it Diverticular disease C. difficile colitis dx 02/28/24, [facility] for this, still some loose stool but much improved since start of Vanco Chronic kidney disease, stage III (moderate) follows with Dr. Patel GERD without esophagitis Hx of cardiac murmur has had since age 3, "it comes and goes"; f/u dr. augustine, [facility] Scleroderma Peripheral vascular disease Depression Fibromyalgia GERD (gastroesophageal reflux disease) Spinal stenosis Anxiety "has white coat syndrome and blood pressure can get really high" Secondary hyperparathyroidism Positive NAREN (antinuclear antibody) Hyperkalemia Hypercalcemia Anemia Surgical History S/P epidural steroid injection Hx of right cataract extraction History of cholecystectomy History of left cataract extraction History of dilatation and curettage History of esophagogastroduodenoscopy (EGD) History of breast biopsy RIGHT BENIGN History of hysterectomy History of appendectomy History of tonsillectomy H/O colonoscopy Family History Other No known health problems Social History Smoking Status: Never smoker Second Hand Exposure: No; Do You Dip or Chew Tobacco: No; Hx Alcohol Use: No Hx Substance Use: No Preferred Language: Belarusian Communication Ability: Effective [employer] Required: No Beliefs That Will Affect Care: None Current Living Situation: Spouse current occupational status: retired Feels Safe at Home: Yes Assistive Devices: Glasses and Walker Review of Systems Review of Systems: All systems reviewed & are unremarkable except as noted in HPI & below Physical Exam Constitutional: WD/WN, vitals as above ENMT: external ear and nose normal, oropharynx normal Neck: trachea midline, no thyromegaly Respiratory: normal respiratory effort, lungs clear to auscultation Cardiovascular: RRR, no murmur, no edema Chest (Breasts): Chest: normal inspection of chest Gastrointestinal (Abdomen): Inspection/Auscultation: abdomen normal to inspection, + abdomen distended (Mild) and + hypoactive bowel sounds Percussion/Palpation: + abdomen tender (Positive TTP in LLQ with mild voluntary guarding, no rebound) and abdomen soft Musculoskeletal: Extremities: extremities normal to inspection; no cyanosis and no clubbing Skin: no rashes, warm and dry Neurologic: moves all extremities and awake; no focal motor deficits Psychiatric: A+Ox3, euthymic affect Lymphatic: no lymphedema Results & Data Results & Data Vital Signs (Past 12 Hours) Vital Signs Temp Pulse Pulse Resp BP BP Pulse Ox 07/26/24 15:46 85 07/26/24 15:06 87 19 141/65 H 93 07/26/24 13:05 99 H 165/75 H 07/26/24 11:37 82 07/26/24 11:35 83 17 97 07/26/24 11:35 82 22 176/84 H 97 07/26/24 11:00 36.6 C 82 20 201/77 H 99 O2 Del Method 07/26/24 15:46 07/26/24 15:06 Room Air 07/26/24 13:05 07/26/24 11:37 07/26/24 11:35 Room Air 07/26/24 11:35 Room Air 07/26/24 11:00 Room Air Laboratory Results CBC, CMP, troponin, lipase, UA reviewed Diagnostic Findings CT A/P reviewed ECG Additional Comments: ECG on 07/26/2024 at 1134 with sinus rhythm with PACs, rate 82, no ischemic changes Code Status & VTE Plan Code Status Full code VTE Prophylaxis Plan VTE Prophylaxis will be ordered: Yes PG Care Time/CCT Total # of Minutes Spent Total Time Spent with Patient: Total time spent is greater than 50% in coordination of care (as documented) at patient's floor/unit and/or counseling patient: Coding Level of Care Code 89100 INT INP/OBS CARE MIN Diagnoses Diverticulitis K57.92 Elevated troponin R79.89 Chronic constipation K59.09
[2024-07-26] MEDS ORDERED: LORazepam 0.5 MG TAB PO PRN (18:21)
[2024-07-26] MEDS ORDERED: ONDANSETRON INJ 2 MG/ML 2 ML VIAL IV PRN (18:21)
[2024-07-26] MEDS ORDERED: ACETAMINOPHEN 500 MG TAB PO PRN (18:21)
[2024-07-26] MEDS: PIPERACILLIN/TAZOBACTAM 4.5 GM/100 ML BAG IV SCH (19:11)
[2024-07-26] MEDS: NSS + 20MEQ KCL 20 MEQ/1,000 ML BAG IV SCH (19:11)
[2024-07-26] MEDS: CHERRY SYRUP 5 ML UDP PO SCH (20:05)
[2024-07-26] MEDS: VANCOMYCIN HCL 125 MG/2.5ML SOLN PO SCH (20:06)
[2024-07-26] MEDS: FAMOTIDINE 20 MG TAB PO SCH (20:06)
[2024-07-26] MEDS: ENOXAPARIN INJ 40 MG/0.4 ML SYR SQ SCH (20:06)
[2024-07-26] MEDS: METOPROLOL SUCC 25MG EXT REL TAB PO SCH (20:06)
[2024-07-27 05:08] LABS: Hematocrit (blood only) 32.1 % (37.0-47.0); Hemoglobin 10.2 g/dl (12.0-16.0); Mean Corpuscular Hemoglobin 27.7 pg (25.0-34.0); Mean Corpuscular Hgb Conc 31.8 g/dL (32.0-36.0); Mean Corpuscular Volume 87.2 fL (80.0-100.0); Mean Platelet Volume 9.6 fL (9.4-12.4); Platelet Count 260 K/uL (130-400); RDW Coefficient of Variation 12.8 % (11.5-14.5); RDW Standard Deviation 40.9 fL (36.4-46.3); Red Blood Count 3.68 M/uL (4.20-5.40); White Blood Count 24.81 K/ul (4.8-10.8)
[2024-07-27 05:24] LABS: Albumin Level 3.1 gm/dl (3.4-5.0); BUN Creatinine Ratio 10.8 (10-20); Bilirubin,Total 0.7 mg/dl (0.2-1.0); Calcium 8.3 mg/dl (8.6-10.3); Creatinine Clr Calc Pharmacy 32.3 ml/min; Globulin 3.2 gm/dl (2.5-4.0); Magnesium 1.6 mg/dl (1.7-2.4); Potassium 3.7 mmol/L (3.5-5.1); Total Protein 6.3 gm/dl (6.0-8.3)
[2024-07-27 05:31] LABS: Troponin I High Sensitivity 27.4 pg/ml (0-14)
[2024-07-27 05:39] LABS: Basophils # (auto) 0.06 K/uL (0.00-0.20); Basophils % (auto) 0.2 %; Eosinophils # (auto) 0.01 K/uL (0.00-0.50); Immature Granulocytes # (auto) 0.13 K/uL (0.01-0.20); Immature Granulocytes % (auto) 0.5 %; Lymphocytes # (auto) 1.87 K/uL (1.20-3.40); Lymphocytes % (auto) 7.5 %; Monocytes % (auto) 7.3 %; Neutrophils # (auto) 20.94 K/uL (1.40-6.50); Neutrophils % (auto) 84.5 %; Polychromasia 1+
[2024-07-27 05:45] LABS: Ferritin 62.6 ng/ml (8-388)
[2024-07-27] MEDS: CHOLECALCIFEROL 25 MCG (1000 UNITS) TAB PO SCH (10:03)
[2024-07-27] MEDS: amLODIPine BESYLATE 5 MG TAB PO SCH (10:56)
[2024-07-27] MEDS: LOSARTAN POTASSIUM 50 MG TAB PO SCH (11:17)
[2024-07-27] MEDS: HYDROmorphone INJ 0.5 MG/0.5 ML SYR IV STA (13:57)
[2024-07-27] MEDS: ACETAMINOPHEN 500 MG TAB PO PRN (15:49)
[2024-07-27] MEDS: POLYETHYLENE (MIRALAX) 17 GM PACK PO PRN (15:50)
--- NOTE | 2024-07-27 18:48 | Hospitalist Progress Note ---
Date of Service July 27, 2024 Assessment & Plan (1) Diverticulitis: Plan: Bowel rest, Abx, IVF, analgesics Bowel regimen for constipation (2) Elevated troponin: Plan: no ACS (3) Chronic constipation: Plan: Bowel regimen started Admission and Anticipated Discharge Date Admission Date: July 26, 2024 Subjective continues to have left sided abdominal pain, No nausea or vomiting, last BM last Saturday, passing flatus Physical Exam Physical Exam: resting comfortably Non toxic AAO#3, Non focal Lungs clear to auscultation b/l Heart RRR PA Soft, full, left sided tenderness, no palpable masses Results & Data Results & Data Vital Signs (Past 12 Hours) Vital Signs Temp Pulse Pulse Resp BP BP Pulse Ox 07/27/24 17:30 37.4 C 66 18 109/55 L 93 07/27/24 16:04 94 H 07/27/24 15:30 07/27/24 15:24 37.8 C H 92 H 18 159/67 H 91 07/27/24 14:00 78 18 127/63 95 07/27/24 10:58 83 22 135/72 95 07/27/24 08:00 84 17 129/58 L 90 07/27/24 06:55 82 O2 Del Method O2 Flow Rate 07/27/24 17:30 Room Air 07/27/24 16:04 07/27/24 15:30 Room Air 07/27/24 15:24 Room Air 07/27/24 14:00 Nasal Cannula 1 07/27/24 10:58 Room Air 07/27/24 08:00 Room Air 07/27/24 06:55 Laboratory Results reviewed Diagnostic Findings reviewed PG Care Time/CCT Total # of Minutes Spent Total Time Spent with Patient: Total time spent is greater than 50% in coordination of care (as documented) at patient's floor/unit and/or counseling patient: Coding Level of Care Code 87776 SUB INP/OBS CARE 235MIN Diagnoses Diverticulitis K57.92 Elevated troponin R79.89 Chronic constipation K59.09
[2024-07-27] MEDS: MAGNESIUM SULFATE / D5W 1 GM/100 ML BAG IV SCH (22:41)
[2024-07-28 09:40] LABS: Basophils # (auto) 0.05 K/uL (0.00-0.20); Basophils % (auto) 0.2 %; Eosinophils # (auto) 0.15 K/uL (0.00-0.50); Eosinophils % (auto) 0.7 %; Hematocrit (blood only) 31.4 % (37.0-47.0); Hemoglobin 10.1 g/dl (12.0-16.0); Immature Granulocytes % (auto) 0.5 %; Lymphocytes # (auto) 1.54 K/uL (1.20-3.40); Lymphocytes % (auto) 7.2 %; Mean Corpuscular Hemoglobin 27.7 pg (25.0-34.0); Mean Corpuscular Hgb Conc 32.2 g/dL (32.0-36.0); Mean Platelet Volume 9.6 fL (9.4-12.4); Monocytes # (auto) 0.97 K/uL (0.11-0.59); Monocytes % (auto) 4.6 %; Neutrophils # (auto) 18.45 K/uL (1.40-6.50); Neutrophils % (auto) 86.8 %; Platelet Count 265 K/uL (130-400); RDW Coefficient of Variation 12.7 % (11.5-14.5); Red Blood Count 3.65 M/uL (4.20-5.40); White Blood Count 21.26 K/ul (4.8-10.8)
[2024-07-28 09:47] LABS: BUN Creatinine Ratio 11.5 (10-20); Calcium 8.4 mg/dl (8.6-10.3); Creatinine Clr Calc Pharmacy 34.3 ml/min; Magnesium 2.2 mg/dl (1.7-2.4); Potassium 3.8 mmol/L (3.5-5.1)
--- NOTE | 2024-07-28 10:14 | Electrocardiogram Report ---
Test Reason : Blood Pressure : */* mmHG Vent. Rate : 70 BPM Atrial Rate : 70 BPM P-R Int : 170 ms QRS Dur : 74 ms QT Int : 402 ms P-R-T Axes : -11 10 80 degrees QTcB Int : 434 ms Poor data quality, interpretation may be adversely affected Normal sinus rhythm Poor R wave progression, consider anterior AR vs. lead placement vs. LVH Abnormal ECG When compared with ECG of 26-Jul-2024 11:34, Premature atrial complexes are no longer Present Confirmed by David Campos ([id number]) on 07/28/2024 10:13:58 AM Referred By: REFERRED SELF Confirmed By: David Campos
[2024-07-28] MEDS: POLYETHYLENE (MIRALAX) 17 GM PACK PO SCH ×2 (10:19→20:00)
[2024-07-28] MEDS: SODIUM CHLORIDE 0.9% 500 ML IV SCH (14:17)
[2024-07-28] MEDS: bisacodyL 5 MG TABEC PO ONE (14:17)
--- NOTE | 2024-07-28 17:28 | Hospitalist Progress Note ---
Date of Service July 28, 2024 Assessment & Plan (1) Diverticulitis: Plan: Bowel rest - will advance to clear liquids for dinner, Abx, IVF, analgesics Bowel regimen for constipation, added Dulcolax, increase Miralax to BID Monitor Leukocytosis / slight improvement (2) Elevated troponin: Plan: no ACS (3) Chronic constipation: Plan: Bowel regimen started / adjusted Plan OOB as tolerated DVT Px Admission and Anticipated Discharge Date Admission Date: July 26, 2024 Subjective continues to have left sided abdominal pain - says not any better but seems to be less tender compared to yesterday, No nausea or vomiting, last BM last Saturday, small BM yesterday Physical Exam Physical Exam: resting comfortably Non toxic AAO#3, Non focal Lungs clear to auscultation b/l Heart RRR PA Soft, full, left sided tenderness, no palpable masses Results & Data Results & Data Vital Signs (Past 12 Hours) Vital Signs Temp Pulse Pulse Resp BP Pulse Ox O2 Del Method 07/28/24 15:57 36.8 C 69 17 122/64 91 Room Air 07/28/24 14:48 77 07/28/24 11:35 36.6 C 63 17 147/67 H 96 Room Air 07/28/24 08:00 Room Air 07/28/24 07:37 36.8 C 68 17 116/65 94 Room Air 07/28/24 07:30 66 Laboratory Results reviewed PG Care Time/CCT Total # of Minutes Spent Total Time Spent with Patient: Total time spent is greater than 50% in coordination of care (as documented) at patient's floor/unit and/or counseling patient: Coding Level of Care Code 88876 SUB INP/OBS CARE 2/35MIN Diagnoses Diverticulitis K57.92 Elevated troponin R79.89 Chronic constipation K59.09
[2024-07-29 07:21] LABS: Basophils # (auto) 0.05 K/uL (0.00-0.20); Basophils % (auto) 0.4 %; Eosinophils # (auto) 0.17 K/uL (0.00-0.50); Eosinophils % (auto) 1.3 %; Hematocrit (blood only) 28.9 % (37.0-47.0); Hemoglobin 9.4 g/dl (12.0-16.0); Immature Granulocytes # (auto) 0.03 K/uL (0.01-0.20); Immature Granulocytes % (auto) 0.2 %; Lymphocytes # (auto) 1.51 K/uL (1.20-3.40); Lymphocytes % (auto) 11.2 %; Mean Corpuscular Hemoglobin 28.1 pg (25.0-34.0); Mean Corpuscular Hgb Conc 32.5 g/dL (32.0-36.0); Mean Corpuscular Volume 86.3 fL (80.0-100.0); Mean Platelet Volume 9.9 fL (9.4-12.4); Monocytes # (auto) 0.71 K/uL (0.11-0.59); Monocytes % (auto) 5.3 %; Neutrophils # (auto) 10.99 K/uL (1.40-6.50); Neutrophils % (auto) 81.6 %; Platelet Count 285 K/uL (130-400); RDW Coefficient of Variation 12.5 % (11.5-14.5); RDW Standard Deviation 39.4 fL (36.4-46.3); Red Blood Count 3.35 M/uL (4.20-5.40); White Blood Count 13.46 K/ul (4.8-10.8)
[2024-07-29 07:23] LABS: BUN Creatinine Ratio 9.4 (10-20); Calcium 8.1 mg/dl (8.6-10.3); Creatinine Clr Calc Pharmacy 36.6 ml/min; Magnesium 1.9 mg/dl (1.7-2.4); Potassium 3.2 mmol/L (3.5-5.1)
--- NOTE | 2024-07-29 19:15 | Hospitalist Progress Note ---
Date of Service July 29, 2024 Assessment & Plan (1) Diverticulitis: Plan: Bowel rest - will advance to low fat diet for dinner, Abx, IVF, analgesics Bowel regimen - cont Miralax BID Monitor Leukocytosis - much improved (2) Elevated troponin: Plan: no ACS (3) Chronic constipation: Plan: Bowel regimen started / adjusted Plan OOB as tolerated DVT Px Admission and Anticipated Discharge Date Admission Date: July 26, 2024 Subjective still wityh abdominal pain but better, no nausea or vomiting, tolerating clears, had a large BM Physical Exam Physical Exam: resting comfortably Non toxic AAO#3, Non focal Lungs clear to auscultation b/l Heart RRR PA Soft, full, left sided tenderness, no palpable masses Results & Data Results & Data Vital Signs (Past 12 Hours) Vital Signs Temp Pulse Pulse Resp BP Pulse Ox O2 Del Method 07/29/24 16:34 36.8 C 77 20 136/63 96 Room Air 07/29/24 15:49 75 07/29/24 11:48 36.8 C 69 18 127/54 L 95 Room Air 07/29/24 07:47 36.9 C 76 20 131/67 94 Room Air 07/29/24 07:18 77 PG Care Time/CCT Total # of Minutes Spent Total Time Spent with Patient: Total time spent is greater than 50% in coordination of care (as documented) at patient's floor/unit and/or counseling patient: Coding Level of Care Code 50922 SUB INP/OBS CARE 235MIN Diagnoses Diverticulitis K57.92 Elevated troponin R79.89 Chronic constipation K59.09
[2024-07-30 08:57] LABS: Basophils # (auto) 0.04 K/uL (0.00-0.20); Basophils % (auto) 0.7 %; Eosinophils # (auto) 0.19 K/uL (0.00-0.50); Eosinophils % (auto) 3.2 %; Hematocrit (blood only) 31.8 % (37.0-47.0); Hemoglobin 10.3 g/dl (12.0-16.0); Immature Granulocytes # (auto) 0.02 K/uL (0.01-0.20); Immature Granulocytes % (auto) 0.3 %; Lymphocytes # (auto) 1.47 K/uL (1.20-3.40); Lymphocytes % (auto) 24.9 %; Mean Corpuscular Hemoglobin 27.8 pg (25.0-34.0); Mean Corpuscular Hgb Conc 32.4 g/dL (32.0-36.0); Mean Corpuscular Volume 85.7 fL (80.0-100.0); Mean Platelet Volume 9.4 fL (9.4-12.4); Monocytes # (auto) 0.41 K/uL (0.11-0.59); Monocytes % (auto) 6.9 %; Neutrophils # (auto) 3.77 K/uL (1.40-6.50); Platelet Count 337 K/uL (130-400); RDW Coefficient of Variation 12.5 % (11.5-14.5); RDW Standard Deviation 39.2 fL (36.4-46.3); Red Blood Count 3.71 M/uL (4.20-5.40)
[2024-07-30 09:32] LABS: BUN Creatinine Ratio 6.3 (10-20); Calcium 8.6 mg/dl (8.6-10.3); Creatinine Clr Calc Pharmacy 34.6 ml/min; Potassium 2.9 mmol/L (3.5-5.1)
--- NOTE | 2024-07-30 09:49 | Hospitalist Progress Note ---
Date of Service July 30, 2024 Assessment & Plan (1) Diverticulitis: Plan: Diverticulitis Switch to low fiber Continue antibiotics. Patient with slow progression and some residual pain and electrolyte instability. Will switch to Unasyn with Augmentin as target for discharge when ready Will continue observation for a day as patient does not feel ready for discharge, is slow to tolerate a regular diet, and is hypokalemia MiraLAX continued Leukocytosis resolved Patient has a history of C. difficile and C. difficile gene positive. Is not having liquid bowel movements but has had some loose bowel movements today. Continue vancomycin daily prophylaxis. This should be extended for 1 week past the completion of her diverticulitis antibiotic regimen. Elevated troponin Minimally elevated and stable, no chest pain. No signs of ACS at time of re assessment DVT prophylaxis: Lovenox CODE STATUS: Full code Disposition planning: Pending ability to tolerate oral nutrition, electrolyte stability. PT/OT are pending. (2) Elevated troponin: (3) Chronic constipation: Admission and Anticipated Discharge Date Admission Date: July 26, 2024 Subjective Seen this morning. Pain is tolerable and slightly improving all still crampy in her lower abdomen. Is trying solid food for breakfast for the first time this morning, eating fairly slowly. Bowel movements are loose but not liquid. She is hypokalemic this morning at 2.9. Renal function is stable. Patient feels she is improving but does not yet feel that she is ready for discharge, has a slow time tolerating meals and reasonable to continue watching giving hypokalemia and electrolyte instability. Physical Exam Physical Exam: General: A&Ox3. NAD. Cooperative. HEENT: Atraumatic, normocephalic. Pulm: CTAB A&P. -wheezes, -rales, -rhonchi. Symmetrical chest rise. No increased work of breathing. No respiratory distress. Cardiac: RRR, -mrg. Radial pulses intact and symmetrical. Abdominal: Softly tender in the lower left quadrant without rebound/involuntary guarding. Results & Data Results & Data Vital Signs (Past 12 Hours) Vital Signs Temp Pulse Pulse Resp BP Pulse Ox O2 Del Method 07/30/24 07:47 36.9 C 63 18 148/72 H 96 Room Air 07/30/24 02:44 36.8 C 60 20 131/74 96 Room Air 07/29/24 22:56 36.7 C 64 20 145/70 H 97 Room Air 07/29/24 22:00 Room Air 07/29/24 21:55 65 PG Care Time/CCT Total # of Minutes Spent Total Time Spent with Patient: Total time spent is greater than 50% in coordination of care (as documented) at patient's floor/unit and/or counseling patient: Coding Level of Care Code 51619 SUB INP/OBS CARE 2/35MIN Diagnoses Diverticulitis K57.92 Elevated troponin R79.89 Chronic constipation K59.09
[2024-07-30] MEDS: AMPICILLIN/SULBACTAM SOD 3,000 MG/100 ML BAG IV SCH (10:27)
[2024-07-30] MEDS: POTASSIUM CHLORIDE / WTR 10 MEQ/100 ML PLCT IV SCH (11:29)
[2024-07-30] MEDS: POTASSIUM CHLORIDE CRTAB 20 MEQ TABCR PO SCH (13:48)
[2024-07-31 06:56] LABS: Basophils # (auto) 0.03 K/uL (0.00-0.20); Basophils % (auto) 0.6 %; Eosinophils # (auto) 0.17 K/uL (0.00-0.50); Eosinophils % (auto) 3.3 %; Hemoglobin 9.8 g/dl (12.0-16.0); Immature Granulocytes # (auto) 0.03 K/uL (0.01-0.20); Immature Granulocytes % (auto) 0.6 %; Lymphocytes % (auto) 28.9 %; Mean Corpuscular Hemoglobin 27.5 pg (25.0-34.0); Mean Corpuscular Hgb Conc 31.6 g/dL (32.0-36.0); Mean Corpuscular Volume 87.1 fL (80.0-100.0); Mean Platelet Volume 9.4 fL (9.4-12.4); Monocytes # (auto) 0.47 K/uL (0.11-0.59); Monocytes % (auto) 9.1 %; Neutrophils # (auto) 2.99 K/uL (1.40-6.50); Neutrophils % (auto) 57.5 %; Platelet Count 300 K/uL (130-400); RDW Coefficient of Variation 12.7 % (11.5-14.5); RDW Standard Deviation 40.6 fL (36.4-46.3); Red Blood Count 3.56 M/uL (4.20-5.40); White Blood Count 5.19 K/ul (4.8-10.8)
[2024-07-31 07:15] LABS: BUN Creatinine Ratio 8.3 (10-20); Calcium 8.2 mg/dl (8.6-10.3); Potassium 3.6 mmol/L (3.5-5.1)
--- NOTE | 2024-07-31 14:02 | Hospitalist Progress Note ---
Date of Service July 31, 2024 Assessment & Plan (1) Diverticulitis: Plan: Diverticulitis low fiber/low fat. If continued pain --> clears + IVFM. Continue Unasyn - Inadequate PO intake for discharge, still needing IV pain control. Continue scaled hydromorphine 0.25-0.5mg q6h prn. MiraLAX continued Leukocytosis resolved Continue C diff ppx - If not progressing in next day or so, or +leukocytosis consider rescan for abscess. This is not currently indicated Elevated troponin Minimally elevated and stable, no chest pain. No signs of ACS at time of reassessment DVT prophylaxis: Lovenox CODE STATUS: Full code Disposition planning: Pending ability to tolerate oral nutrition, electrolyte stability. (2) Elevated troponin: (3) Chronic constipation: Admission and Anticipated Discharge Date Admission Date: July 26, 2024 Subjective Continued cramping/discomfort poor PO intake. No fevers, chills, or sweats. Abd feels stable, still some pain in LLQ better than initial admit but not much better from last 2 days. Passing loose but not completely liquid brown stools. Would like to try low far/low fiber diet before regressing to clears if possible. Physical Exam Physical Exam: General: A&Ox3. NAD. Cooperative. HEENT: Atraumatic, normocephalic. Pulm: CTAB A&P. -wheezes, -rales, -rhonchi. Symmetrical chest rise. No increased work of breathing. No respiratory distress. Cardiac: RRR, -mrg. Radial pulses intact and symmetrical. Abdominal: LLQ TTP. No guarding/rebound/rigidity. Results & Data Results & Data Vital Signs (Past 12 Hours) Vital Signs Temp Pulse Resp BP BP Pulse Ox O2 Del Method 07/31/24 12:03 36.6 C 61 18 124/63 98 Room Air 07/31/24 09:12 71 07/31/24 07:43 36.9 C 54 L 18 149/76 H 97 Room Air 07/31/24 02:51 36.8 C 57 L 16 123/57 L 95 Room Air PG Care Time/CCT Total # of Minutes Spent Total Time Spent with Patient: Total time spent is greater than 50% in coordination of care (as documented) at patient's floor/unit and/or counseling patient: Coding Level of Care Code 46283 SUB INP/OBS CARE MIN Diagnoses Diverticulitis K57.92 Elevated troponin R79.89 Chronic constipation K59.09
[2024-08-01] MEDS: HYDROmorphone INJ 0.5 MG/0.5 ML SYR IV PRN (04:55)
[2024-08-01 06:15] LABS: Basophils # (auto) 0.04 K/uL (0.00-0.20); Basophils % (auto) 0.6 %; Eosinophils # (auto) 0.14 K/uL (0.00-0.50); Eosinophils % (auto) 2.1 %; Hematocrit (blood only) 32.5 % (37.0-47.0); Hemoglobin 10.3 g/dl (12.0-16.0); Immature Granulocytes # (auto) 0.04 K/uL (0.01-0.20); Immature Granulocytes % (auto) 0.6 %; Lymphocytes # (auto) 1.18 K/uL (1.20-3.40); Lymphocytes % (auto) 17.7 %; Mean Corpuscular Hemoglobin 27.1 pg (25.0-34.0); Mean Corpuscular Hgb Conc 31.7 g/dL (32.0-36.0); Mean Corpuscular Volume 85.5 fL (80.0-100.0); Mean Platelet Volume 9.2 fL (9.4-12.4); Monocytes % (auto) 7.5 %; Neutrophils # (auto) 4.75 K/uL (1.40-6.50); Neutrophils % (auto) 71.5 %; Platelet Count 305 K/uL (130-400); RDW Coefficient of Variation 12.7 % (11.5-14.5); RDW Standard Deviation 39.4 fL (36.4-46.3); White Blood Count 6.65 K/ul (4.8-10.8)
[2024-08-01 06:33] LABS: BUN Creatinine Ratio 7.9 (10-20); Calcium 8.4 mg/dl (8.6-10.3); Potassium 3.7 mmol/L (3.5-5.1)
--- NOTE | 2024-08-01 11:03 | Hospitalist Progress Note ---
Date of Service August 01, 2024 Assessment & Plan (1) Diverticulitis: Plan: Diverticulitis Continue Unasyn - Inadequate PO intake for discharge, still needing IV pain control and diet progression. Somewhat improved on clears but diet has progressed. Some slight improvement this morning, will continue on clears today and reevaluate for progression tomorrow. If she is not progressing then will repeat CT for abscess MiraLAX continued Leukocytosis resolved Continue C diff ppx Elevated troponin Minimally elevated and stable, no chest pain. No signs of ACS at time of reassessment DVT prophylaxis: Lovenox CODE STATUS: Full code Disposition planning: Pending ability to tolerate oral nutrition, electrolyte stability. (2) Elevated troponin: (3) Chronic constipation: Admission and Anticipated Discharge Date Admission Date: July 26, 2024 Subjective Seen the bedside this morning. Doing okay on clears, still had some pain with clears last night but feels slightly improved this morning. No fevers chills or sweats. No chest pain. Physical Exam Physical Exam: General: A&Ox3. NAD. Cooperative. HEENT: Atraumatic, normocephalic. Vision and hearing grossly intact Pulm: CTAB A&P. -wheezes, -rales, -rhonchi. Symmetrical chest rise. No increased work of breathing. No respiratory distress. Cardiac: RRR, -mrg. Radial pulses intact and symmetrical. Abdominal: LLQ TTP, slightly improved from prior. No guarding/rebound/rigidity. Results & Data Results & Data Vital Signs (Past 12 Hours) Vital Signs Temp Pulse Pulse Resp BP BP Pulse Ox 08/01/24 07:56 55 L 08/01/24 07:37 36.7 C 62 20 166/70 H 97 08/01/24 03:34 36.7 C 85 20 172/55 H 96 07/31/24 23:41 36.9 C 64 18 150/70 H 95 O2 Del Method 08/01/24 07:56 08/01/24 07:37 Room Air 08/01/24 03:34 Room Air 07/31/24 23:41 Room Air PG Care Time/CCT Total # of Minutes Spent Total Time Spent with Patient: Total time spent is greater than 50% in coordination of care (as documented) at patient's floor/unit and/or counseling patient: Coding Level of Care Code 24826 SUB INP/OBS CARE 2/35MIN Diagnoses Diverticulitis K57.92 Elevated troponin R79.89 Chronic constipation K59.09
[2024-08-02 06:44] LABS: Basophils # (auto) 0.03 K/uL (0.00-0.20); Basophils % (auto) 0.5 %; Eosinophils # (auto) 0.16 K/uL (0.00-0.50); Eosinophils % (auto) 2.7 %; Hematocrit (blood only) 35.8 % (37.0-47.0); Hemoglobin 11.5 g/dl (12.0-16.0); Immature Granulocytes # (auto) 0.04 K/uL (0.01-0.20); Immature Granulocytes % (auto) 0.7 %; Lymphocytes # (auto) 1.32 K/uL (1.20-3.40); Lymphocytes % (auto) 22.4 %; Mean Corpuscular Hemoglobin 27.6 pg (25.0-34.0); Mean Corpuscular Hgb Conc 32.1 g/dL (32.0-36.0); Mean Corpuscular Volume 85.9 fL (80.0-100.0); Mean Platelet Volume 9.5 fL (9.4-12.4); Monocytes % (auto) 8.5 %; Neutrophils # (auto) 3.85 K/uL (1.40-6.50); Neutrophils % (auto) 65.2 %; Platelet Count 338 K/uL (130-400); RDW Coefficient of Variation 12.6 % (11.5-14.5); RDW Standard Deviation 39.7 fL (36.4-46.3); Red Blood Count 4.17 M/uL (4.20-5.40)
--- NOTE | 2024-08-02 10:41 | Hospitalist Progress Note ---
Date of Service August 02, 2024 Assessment & Plan (1) Diverticulitis: Plan: Diverticulitis Continue Unasyn - Not progressing 1/. Still with poor appetite, mild LLQ pain and now mild RLQ pain. Overall feels poorly. Diarrhea persists. On c diff daily ppx, will test due to hx of severe infection. Given no progression over 2 days and RLQ mild TTP will repeat CT. Discussed IV contrast, she has a history of severe allergy with facial swelling and prefers to perform without contrast. Offered pretreatment protocol, on shared DM pt strongly prefers to avoid contrast unless absolutely necessary and as she is not toxic reasonable to defer at this time. - Inadequate PO intake for discharge, still needing IV pain control and diet progression. - CTA/P: Repeat CT shows extensive left colon diverticulosis, no change in pericolonic inflammation favoring acute diverticulitis. Interval development of nonspecific superimposed proctitis No progression on current abx, although no abscess/perf noted. Has had complicated prolonged courses of diverticulitis prior. CT not improved on Zosyn/Unasyn will switch to Cipro/Flagyl. C. difficile test is negative we will continue prophylactic vancomycin dose MiraLAX continued Leukocytosis resolved Continue C diff ppx Elevated troponin Minimally elevated and stable, no chest pain. No signs of ACS at time of reassessment DVT prophylaxis: Lovenox CODE STATUS: Full code Disposition planning: Pending ability to tolerate oral nutrition, electrolyte stability. (2) Elevated troponin: (3) Chronic constipation: Admission and Anticipated Discharge Date Admission Date: July 26, 2024 Subjective Still feels poorly. +liquid diarrhea unchanged. No fevers/chills. Ab pain feels a little more in RLQ and LLQ today. Poor appetite. Not much worse, but also not progressing. +fatigue Physical Exam Physical Exam: General: A&Ox3. NAD. Cooperative. HEENT: Atraumatic, normocephalic. Vision and hearing grossly intact Pulm: CTAB A&P. -wheezes, -rales, -rhonchi. Symmetrical chest rise. No increased work of breathing. No respiratory distress. Cardiac: RRR, -mrg. Radial pulses intact and symmetrical. Abdominal:RLQ/LLQ TTP No guarding/rebound/rigidity. Results & Data Results & Data Vital Signs (Past 12 Hours) Vital Signs Temp Pulse Pulse Resp BP Pulse Ox O2 Del Method 08/02/24 08:35 Room Air 08/02/24 07:32 36.7 C 57 L 16 166/67 H 98 Room Air 08/02/24 07:20 57 L 08/02/24 03:36 36.6 C 65 18 157/67 H 97 Room Air 08/01/24 23:02 36.5 C 68 17 161/73 H 93 Room Air PG Care Time/CCT Total # of Minutes Spent Total Time Spent with Patient: Total time spent is greater than 50% in coordination of care (as documented) at patient's floor/unit and/or counseling patient: Coding Level of Care Code 26103 SUB INP/OBS CARE 3/50MIN Diagnoses Diverticulitis K57.92 Elevated troponin R79.89 Chronic constipation K59.09
--- NOTE | 2024-08-02 11:15 | CT Scan Report ---
CT OF THE ABDOMEN AND PELVIS WITHOUT CONTRAST CLINICAL HISTORY: diverticulitis, failure to progress COMPARISON STUDY: CT of the abdomen and pelvis July 26, 2024. TECHNIQUE: Axial images of the abdomen and pelvis were obtained without IV contrast. Images were revi ewed in the axial, sagittal, and coronal planes. Automated exposure control was utilized for the eliel dy. A dose lowering technique was utilized adhering to the principles of ALARA. FINDINGS: Small bilateral pleural effusions have developed. No pneumatosis, free air or portal venous gas is present. A hypodense 1.2 cm hepatic lesion represents a cyst. There is no biliary ductal dila tation status post cholecystectomy. Unenhanced images of the spleen, adrenal glands, left kidney and pancreas are unremarkable. Moderate right renal cortical thinning with atrophy is present. There is n o hydronephrosis. There are no urinary calculi. There is no evidence for a bowel obstruction. Extensi ve left colon diverticulosis is present. Wall thickening with inflammation adjacent to the mid to dis jesenia descending colon and proximal sigmoid colon is similar to CT of July 26, 2024. There is no fr ee air. There is no fluid collection to suggest abscess. Rectal wall thickening with mild perirectal inflammation has developed. IMPRESSION: 1. Extensive left colon diverticulosis. No significant change in mild wall thickening with moderate p ericolonic inflammation involving the mid to distal descending colon and proximal sigmoid colon since prior CT. This favors acute diverticulitis. A nonspecific colitis could appear similar. No free air or abscess. 2. Interval development of mild rectal wall thickening with perirectal inflammation. This represents a nonspecific superimposed proctitis. ACT 112: Negative or not required by law. Electronically signed by: Sam Cardona M.D. 08/02/2024 11:13 AM
[2024-08-02 11:29] LABS: BUN Creatinine Ratio 5.9 (10-20); Creatinine Clr Calc Pharmacy 38.4 ml/min; Potassium 3.6 mmol/L (3.5-5.1)
[2024-08-02] MEDS: CIPROFLOXACIN / D5W 400 MG/200 ML BAG IV SCH (16:54)
[2024-08-02] MEDS: metroNIDAZOLE 500 MG/100 ML BAG IV SCH (16:54)
[2024-08-02] MEDS: PLASMA-LYTE A 1,000 ML IV SCH (18:02)
[2024-08-03 08:07] LABS: BUN Creatinine Ratio 4.7 (10-20); Creatinine Clr Calc Pharmacy 36.6 ml/min; Magnesium 2.1 mg/dl (1.7-2.4); Potassium 3.3 mmol/L (3.5-5.1)
[2024-08-03 08:36] LABS: Basophils # (auto) 0.06 K/uL (0.00-0.20); Basophils % (auto) 0.9 %; Eosinophils % (auto) 4.5 %; Hematocrit (blood only) 36.1 % (37.0-47.0); Hemoglobin 11.5 g/dl (12.0-16.0); Immature Granulocytes # (auto) 0.03 K/uL (0.01-0.20); Immature Granulocytes % (auto) 0.4 %; Lymphocytes # (auto) 1.48 K/uL (1.20-3.40); Lymphocytes % (auto) 22.1 %; Mean Corpuscular Hemoglobin 27.4 pg (25.0-34.0); Mean Corpuscular Hgb Conc 31.9 g/dL (32.0-36.0); Mean Platelet Volume 9.7 fL (9.4-12.4); Monocytes # (auto) 0.56 K/uL (0.11-0.59); Monocytes % (auto) 8.3 %; Neutrophils # (auto) 4.28 K/uL (1.40-6.50); Neutrophils % (auto) 63.8 %; Platelet Count 390 K/uL (130-400); RDW Coefficient of Variation 12.7 % (11.5-14.5); RDW Standard Deviation 39.6 fL (36.4-46.3); White Blood Count 6.71 K/ul (4.8-10.8)
--- NOTE | 2024-08-03 09:49 | Hospitalist Progress Note ---
Date of Service August 03, 2024 Assessment & Plan (1) Diverticulitis: Plan: Diverticulitis On zosyn --> unasyn initially. - Did not progress, CT repeated w/o contrast due to severe allergy and pt preferred to defer pretreatment protocol - CTA/P: Repeat CT shows extensive left colon diverticulosis, no change in pericolonic inflammation favoring acute diverticulitis. Interval development of nonspecific superimposed proctitis - Switched to cipro/flagyl - Unchanged 08/03. Will observe for improvement over 24-36 hours on abx change. has had prolonged courses of diverticulitis before. C diff remains neg. Ppx continued.IV hydration +clears continued. - Miralax held - +20meq IV KCl due to poor PO tolerance any hypokalemia given Cough - Dry cough, congestion without fever developed 08/03 - Biofire added - No hypoxia Elevated troponin Minimally elevated and stable, no chest pain. No signs of ACS at time of reassessment DVT prophylaxis: Lovenox CODE STATUS: Full code Disposition planning: Pending ability to tolerate oral nutrition, electrolyte stability. (2) Elevated troponin: (3) Chronic constipation: Admission and Anticipated Discharge Date Admission Date: July 26, 2024 Subjective Continues with LLQ mild TTP. No rebound guarding. Similar, maybe slightly worse than yesterday. +dry cough and sneezing today. no fevers/chills. +loose bowels. Physical Exam Physical Exam: General: A&Ox3. NAD. Cooperative. HEENT: Atraumatic, normocephalic. Vision and hearing grossly intact Pulm: CTAB A&P. -wheezes, -rales, -rhonchi. Symmetrical chest rise. No increased work of breathing. No respiratory distress. +cough intermittently during exam Cardiac: RRR, -mrg. Radial pulses intact and symmetrical. Abdominal:RLQ/LLQ TTP similar to prior. No guarding/rebound/rigidity. Results & Data Results & Data Vital Signs (Past 12 Hours) Vital Signs Temp Pulse Pulse Pulse Resp BP BP 08/03/24 07:45 36.6 C 62 18 172/51 H 08/03/24 04:18 36.7 C 54 L 16 146/79 H 08/02/24 23:24 36.5 C 58 L 18 159/73 H 08/02/24 21:55 63 Pulse Ox O2 Del Method 08/03/24 07:45 94 Room Air 08/03/24 04:18 96 Room Air 08/02/24 23:24 99 Room Air 08/02/24 21:55 PG Care Time/CCT Total # of Minutes Spent Total Time Spent with Patient: Total time spent is greater than 50% in coordination of care (as documented) at patient's floor/unit and/or counseling patient: Coding Level of Care Code 90505 SUB INP/OBS CARE 3/50MIN Diagnoses Diverticulitis K57.92 Elevated troponin R79.89 Chronic constipation K59.09
[2024-08-03] MEDS: POTASSIUM CHLORIDE / WTR 10 MEQ/100 ML PLCT IV SCH (11:19)
[2024-08-03 11:20] LABS: Adenovirus PCR Not Detected (NotDetected); Bordetella parapertussis PCR Not Detected (NotDetected); Bordetella pertussis PCR Not Detected (NotDetected); Chlamydia pneumoniae PCR Not Detected (NotDetected); Coronavirus 229E PCR Not Detected (NotDetected); Coronavirus CoV-2 (COVID19)PCR Not Detected (NotDetected); Coronavirus HKU1 PCR Not Detected (NotDetected); Coronavirus NL63 PCR Not Detected (NotDetected); Coronavirus OC43PCR Not Detected (NotDetected); Human Metapneumovirus PCR Not Detected (NotDetected); Influenza A PCR Not Detected (NotDetected); Influenza B PCR Not Detected (NotDetected); Mycoplasma pneumoniae PCR Not Detected (NotDetected); Parainfluenza Virus 1 PCR Not Detected (NotDetected); Parainfluenza Virus 2 PCR Not Detected (NotDetected); Parainfluenza Virus 3 PCR Not Detected (NotDetected); Parainfluenza Virus 4 PCR Not Detected (NotDetected); Respiratory Syncytial VirusPCR Not Detected (NotDetected); Rhinovirus/Enterovirus PCR DETECTED (NotDetected)
[2024-08-03 21:35] LABS: Hematocrit (blood only) 30.4 % (37.0-47.0)
[2024-08-04 03:17] LABS: Basophils # (auto) 0.04 K/uL (0.00-0.20); Basophils % (auto) 0.6 %; Eosinophils # (auto) 0.35 K/uL (0.00-0.50); Eosinophils % (auto) 5.2 %; Hematocrit (blood only) 27.4 % (37.0-47.0); Hemoglobin 8.8 g/dl (12.0-16.0); Immature Granulocytes # (auto) 0.03 K/uL (0.01-0.20); Immature Granulocytes % (auto) 0.4 %; Lymphocytes # (auto) 1.61 K/uL (1.20-3.40); Mean Corpuscular Hemoglobin 27.3 pg (25.0-34.0); Mean Corpuscular Hgb Conc 32.1 g/dL (32.0-36.0); Mean Corpuscular Volume 85.1 fL (80.0-100.0); Mean Platelet Volume 9.4 fL (9.4-12.4); Monocytes # (auto) 0.75 K/uL (0.11-0.59); Monocytes % (auto) 11.2 %; Neutrophils # (auto) 3.94 K/uL (1.40-6.50); Neutrophils % (auto) 58.6 %; Platelet Count 327 K/uL (130-400); RDW Coefficient of Variation 12.9 % (11.5-14.5); RDW Standard Deviation 39.8 fL (36.4-46.3); Red Blood Count 3.22 M/uL (4.20-5.40); White Blood Count 6.72 K/ul (4.8-10.8)
[2024-08-04 03:33] LABS: BUN Creatinine Ratio 6.9 (10-20); Calcium 8.2 mg/dl (8.6-10.3); Creatinine Clr Calc Pharmacy 33.4 ml/min; Potassium 3.2 mmol/L (3.5-5.1)
[2024-08-04] MEDS ORDERED: SODIUM CHLORIDE 0.9% 50 ML IV PRN (07:51)
[2024-08-04] MEDS ORDERED: SODIUM CHLORIDE 0.9% 100 ML IV PRN (07:51)
[2024-08-04] MEDS: POTASSIUM CHLORIDE / WTR 10 MEQ/100 ML PLCT IV SCH ×2 (09:53→19:19)
--- NOTE | 2024-08-04 12:06 | Hospitalist Progress Note ---
Date of Service August 04, 2024 Assessment & Plan (1) Diverticulitis: Plan: Diverticulitis On zosyn --> unasyn initially - Did not progress, CT repeated w/o contrast due to severe allergy and pt preferred to defer pretreatment protocol - CTA/P: Repeat CT shows extensive left colon diverticulosis, no change in pericolonic inflammation favoring acute diverticulitis. Interval development of nonspecific superimposed proctitis - Switched to cipro/flagyl. Over last 36-48 hours has still not had clinical progression, remains with unchanged abdominal discomfort and poor appetite. Lactate added to eval for ischemia, this is normal. DDx includes IBD (pt has a sister with this) although imaging is consistent with diverticulitis and steroids with risk of worsening this. Her colonoscopy 03/2024 was normal, no bx samples taken at that time. C diff repeat was negative. Given lack of progression will ID has been consulted. W/ multiple episodes of diverticulitis and prolonged recovery may need surgical consultation. Cough - Dry cough, congestion without fever developed 08/03 - Biofire + - No hypoxia Elevated troponin Minimally elevated and stable, no chest pain. No signs of ACS at time of reassessment DVT prophylaxis: Lovenox CODE STATUS: Full code Disposition planning: Pending ability to tolerate oral nutrition, electrolyte stability. (2) Elevated troponin: (3) Chronic constipation: Admission and Anticipated Discharge Date Admission Date: July 26, 2024 Subjective Seen the bedside. Again feels about the same has persistent pain in her left lower quadrant and right lower quadrant. No fevers chills or sweats. No obvious bleeding. Patient tearful as she frustrated by her inability to tolerate foods and poor recovery. Has been told as an outpatient that she may need surgery was worried about this. Physical Exam Physical Exam: General: A&Ox3. NAD. Cooperative. HEENT: Atraumatic, normocephalic. Vision and hearing grossly intact Pulm: Symmetrical chest rise. No increased work of breathing. No respiratory distress. +cough intermittently during exam Abdominal:RLQ/LLQ TTP similar to prior. No guarding/rebound/rigidity. Results & Data Results & Data Vital Signs (Past 12 Hours) Vital Signs Temp Pulse Pulse Resp BP Pulse Ox O2 Del Method 08/04/24 10:46 37 C 72 16 149/65 H 96 Room Air 08/04/24 10:03 52 L 08/04/24 07:56 36.9 C 63 18 153/68 H 97 Room Air 08/04/24 07:31 Room Air 08/04/24 03:25 Room Air 08/04/24 03:24 58 L 08/04/24 02:15 36.9 C 53 L 20 127/56 L 96 Room Air PG Care Time/CCT Total # of Minutes Spent Total Time Spent with Patient: Total time spent is greater than 50% in coordination of care (as documented) at patient's floor/unit and/or counseling patient: Coding Level of Care Code 00728 SUB INP/OBS CARE MIN Diagnoses Diverticulitis K57.92 Elevated troponin R79.89 Chronic constipation K59.09
--- NOTE | 2024-08-04 15:59 | Infectious Disease Consult ---
Date of Consultation August 04, 2024 Assessment & Plan (1) History of diverticulitis: (2) Abdominal pain, acute, left lower quadrant: (3) Diverticulitis: Plan This is an 8-piot-nin-year-old female with a past medical history of recurrent acute diverticulitis, C. difficile colitis, chronic constipations, CKD stage III, hypertension, anxiety who presents to the ED left-sided abdominal pain on 07/26 ongoing for few days but had worsened in the last 24 hours prior to admission. She had similar episodes in the past and was treated with antibiotics and subsequently developed C. difficile. She denied rectal bleeding or diarrhea, chest pain, shortness of breath, fever, chills. In the ED, temperature 36.6, pulse 82, blood pressure 201/77, 20, O2 sats 99% on room air. Labs: WBC 24.32, BUN 13, creatinine 1.13. C. difficile testing negative. CTAP findings are compatible with acute diverticulitis without evidence of perforation or abscess.She was started on Zosyn for acute diverticulitis and prophylactic vancomycin p.o. daily for history of Cdiff. On therapy her leukocytosis resolved. Antibiotics were switched to Unasyn. She continued to have poor appetite with mild left lower quadrant pain and mild right lower quadrant pain. Repeat CTAP showed extensive diverticulosis of the left colon. No significant change in mild wall thickening with moderate pericolonic inflammation involving the mid to distal descending colon and proximal sigmoid colon. These findings favor acute diverticulitis. Nonspecific colitis could appear similar. No free air or abscess. There is interval development of mild rectal wall thickening with perirectal inflammation. Findings could represent superimposed proctitis. Because of slow clinical progression the primary team switched antibiotics to Cipro and Flagyl. During her hospital course, she developed a dry cough and congestion without fever. A respiratory viral panel was ordered and is positive for entero-/rhinovirus on 08/03. Iinfectious disease consulted for diverticulitis Microbiology none Antibiotics Zosyn 07/26 - 07/29 Vanco p.o. 07/26 Unasyn 07/30 - 08/02 Flagyl 08/02ongoing Cipro 08/02ongoing # Acute diverticulitis # Leukocytosisresolved WBC 24.32--> 6.72 # History of C. difficile infection, no acute infection currently # Entero/rhino virus positive, on RA Discussion There is no evidence of complicated diverticulitis: She is without abscess, tonny perforation, obstruction or fistulization on repeat CTAP although w/o contrast. Has some findings c/f mild proctitis. Her leukocytosis has resolved on antibiotic therapy and she remains hemodynamically stable and afebrile. She has a history of C. difficile infection and has been started on C diff prophaylaxis while on antibiotics: C. difficile testing is negative. She has been on appropriate antibiotic coverage for acute diverticulitis since admission. Anticipate 10- 14 d of therapy, Recommendations Continue cipro/flagyl for now.( qtc < 500). Since she is slow to improve, will treat for 14 TOTAL days of antibiotics ( 07/26-08/09) If continued abdominal pain, consider surgery evaluation Continue Cdifficile prophylaxis with vanco po daily to end 7 d after completion of antibiotic therapy Thank you for this consult. ID will continue to follow Rica Dickey MD, MPH Infectious Disease [facility] Call [phone] with questions Consultation Information This patient recommendation is based on a telemedicine consult request which was completed asynchronously through chart review and information provided by the primary physician. The patient was not seen or examined today. The evaluation is consultative in nature and all patient care and treatment decisions can either be accepted or rejected by the patient's primary hospital-based treating physician using their own independent medical judgment for their patient. Interventional Cardiologist contact information: Please call [facility] Center . (Phone Number For Physician Use Only) Time Spent Reviewing Chart: 31+ minutes History of Present Illness Reason for Consultation: Diverticulitis Requesting Physician: Jarod Jeffers MD Attending Physician: Jarod Jeffers MD Allergies Allergy/AdvReac Type Severity Reaction Status Date / Time atropine [From ] Allergy Intermediate Hives Verified 05/06/24 10:09 cimetidine [From Tagamet] Allergy Intermediate Hives Verified 05/06/24 10:09 hyoscyamine [From ] Allergy Intermediate Hives Verified 05/06/24 10:09 Iodinated Contrast Media Allergy Intermediate Hives Verified 05/06/24 10:09 [Iodinated Contrast- Oral and IV Dye] nitrofurantoin Allergy Intermediate Rash Verified 05/06/24 10:09 [From Macrobid] phenobarbital [From ] Allergy Intermediate Hives Verified 05/06/24 10:09 regadenoson Allergy Intermediate loss of Verified 05/06/24 10:09 vision, low Blood pressure scopolamine [From ] Allergy Intermediate Hives Verified 05/06/24 10:09 ketoprofen [From Orudis] Allergy Mild Rash Verified 05/06/24 10:09 diltiazem AdvReac Intermediate Hallucinati Verified 05/06/24 10:09 ng doxepin AdvReac Intermediate Hallucinati Verified 05/06/24 10:09 ng doxycycline AdvReac Intermediate Heartburn Verified 05/06/24 10:09 duloxetine [From Cymbalta] AdvReac Intermediate Swelling Verified 05/06/24 10:09 hydrocodone AdvReac Intermediate Dizziness Verified 05/06/24 10:09 lisinopril [From Zestril] AdvReac Intermediate Swelling Verified 05/06/24 10:09 pantoprazole [From Protonix] AdvReac Intermediate Dizziness Verified 05/06/24 10:09 Home Medications Medication Instructions Recorded Confirmed Type lorazepam 0.5 mg tablet 0.5 mg PO DAILY PRN Anxiety 04/14/21 07/26/24 History metoprolol succinate 25 mg 25 mg PO BID 04/14/21 07/26/24 History tablet,extended release 24 hr acetaminophen 500 mg tablet 1,000 mg PO Q6H PRN Back Pain 04/27/21 07/26/24 History (Tylenol Extra Strength) losartan 100 mg tablet 100 mg PO QAM 05/13/23 07/26/24 History amlodipine 10 mg tablet 10 mg PO QAM 08/05/23 07/26/24 History famotidine 20 mg tablet 20 mg PO BID 03/16/24 07/26/24 History furosemide 20 mg tablet 20 mg PO QAM Fluid Retention 03/16/24 07/26/24 History potassium gluconate 500 mg (83 mg) 500 mg PO QAM 04/16/24 07/26/24 History tablet polyethylene glycol 3350 17 gram 17 g PO DAILY PRN Constipation 07/26/24 07/26/24 History oral powder packet (Miralax) Patient History Medical History Chronic back pain Poor intravenous access veins roll and are very small, also pt has been dehyrated at times due to the Cdiff, veins have been very difficult to find since Cdiff infection > [place] machine had to be used in recent past White coat syndrome with diagnosis of hypertension HTN (hypertension) Hx of Lyme disease unsure when it happened, discovered during hospital stay Hx of pancreatitis hospitalized at [facility] Jul 2023, had sepsis with it Diverticular disease C. difficile colitis dx 02/28/24, Vanco for this, still some loose stool but much improved since start of Vanco Chronic kidney disease, stage III (moderate) follows with Dr. Kapoor GERD without esophagitis Hx of cardiac murmur has had since age 3, "it comes and goes"; f/u dr. augustine, s Scleroderma Peripheral vascular disease Depression Fibromyalgia GERD (gastroesophageal reflux disease) Spinal stenosis Anxiety "has white coat syndrome and blood pressure can get really high" Secondary hyperparathyroidism Positive NAREN (antinuclear antibody) Hyperkalemia Hypercalcemia Anemia Surgical History S/P epidural steroid injection Hx of right cataract extraction History of cholecystectomy History of left cataract extraction History of dilatation and curettage History of esophagogastroduodenoscopy (EGD) History of breast biopsy RIGHT BENIGN History of hysterectomy History of appendectomy History of tonsillectomy H/O colonoscopy Family History Other No known health problems Social History Smoking Status: Never smoker Second Hand Exposure: No; Do You Dip or Chew Tobacco: No; Hx Alcohol Use: No Hx Substance Use: No Preferred Language: Maltese Communication Ability: Effective Air Export Coordinator Required: No Beliefs That Will Affect Care: None Current Living Situation: Spouse current occupational status: retired Other Information That Helps Us Care for You: No Feels Safe at Home: Yes Safety Concerns: Feels Safe At This Time Assistive Devices: Brace/Splint/Immobilizer, Cane and Walker Results & Data Vital Signs (Past 12 Hours) Vital Signs Temp Pulse Pulse Resp BP Pulse Ox O2 Del Method 08/04/24 15:47 37.1 C 70 18 155/57 H 96 Room Air 08/04/24 15:30 75 08/04/24 10:46 37 C 72 16 149/65 H 96 Room Air 08/04/24 10:03 52 L 08/04/24 07:56 36.9 C 63 18 153/68 H 97 Room Air 08/04/24 07:31 Room Air Laboratory Results Laboratory Results - last 48 hr 08/03/24 08/03/24 08/03/24 07:07 07:13 20:58 WBC 6.71 RBC 4.20 Hgb 11.5 L 10.0 L Hct 36.1 L 30.4 L MCV 86.0 MCH 27.4 MCHC 31.9 L RDW Std Deviation 39.6 RDW Coeff of Jordi 12.7 Plt Count 390 MPV 9.7 Immature Gran % (Auto) 0.4 Neut % (Auto) 63.8 Lymph % (Auto) 22.1 [place] % (Auto) 8.3 Eos % (Auto) 4.5 Baso % (Auto) 0.9 Neut # (Auto) 4.28 Lymph # (Auto) 1.48 [place] # (Auto) 0.56 Eos # (Auto) 0.30 Baso # (Auto) 0.06 Immature Gran # (Auto) 0.03 Sodium 141 Potassium 3.3 L Chloride 104 Carbon Dioxide 28 Anion Gap 9 BUN 5 L Creatinine 1.06 Est Cr Clr Drug Dosing 36.6 eGFR 53.11 BUN/Creatinine Ratio 4.7 L Glucose 87 Lactate Calcium 9.0 Magnesium 2.1 Adenovirus (PCR) B. pertussis DNA (PCR) B.parapertussis DNA PCR C. pneumoniae DNA (PCR) Coronavirus OC43 (PCR) Coronavirus HKU1 (PCR) Coronavirus 229E (PCR) SARS-CoV-2 (PCR) Coronavirus NL63 (PCR) Human Metapneumovir PCR Influenza Type A (PCR) Influenza Type B (PCR) M. pneumoniae (PCR) Parainfluenza 1 (PCR) Parainfluenza 2 (PCR) Parainfluenza 3 (PCR) Parainfluenza 4 (PCR) RSV (PCR) Entero/Rhino (PCR) Blood Type Antibody Screen Crossmatch 08/03/24 08/04/24 08/04/24 Unknown 03:01 08:09 WBC 6.72 RBC 3.22 L Hgb 8.8 L Hct 27.4 L MCV 85.1 MCH 27.3 MCHC 32.1 RDW Std Deviation 39.8 RDW Coeff of Jordi 12.9 Plt Count 327 MPV 9.4 Immature Gran % (Auto) 0.4 Neut % (Auto) 58.6 Lymph % (Auto) 24.0 [place] % (Auto) 11.2 Eos % (Auto) 5.2 Baso % (Auto) 0.6 Neut # (Auto) 3.94 Lymph # (Auto) 1.61 [place] # (Auto) 0.75 H Eos # (Auto) 0.35 Baso # (Auto) 0.04 Immature Gran # (Auto) 0.03 Sodium 138 Potassium 3.2 L Chloride 106 Carbon Dioxide 26 Anion Gap 6 BUN 8 Creatinine 1.16 Est Cr Clr Drug Dosing 33.4 eGFR 47.66 BUN/Creatinine Ratio 6.9 L Glucose 97 Lactate 0.9 Calcium 8.2 L Magnesium Adenovirus (PCR) Not Detected B. pertussis DNA (PCR) Not Detected B.parapertussis DNA PCR Not Detected C. pneumoniae DNA (PCR) Not Detected Coronavirus OC43 (PCR) Not Detected Coronavirus HKU1 (PCR) Not Detected Coronavirus 229E (PCR) Not Detected SARS-CoV-2 (PCR) Not Detected Coronavirus NL63 (PCR) Not Detected Human Metapneumovir PCR Not Detected Influenza Type A (PCR) Not Detected Influenza Type B (PCR) Not Detected M. pneumoniae (PCR) Not Detected Parainfluenza 1 (PCR) Not Detected Parainfluenza 2 (PCR) Not Detected Parainfluenza 3 (PCR) Not Detected Parainfluenza 4 (PCR) Not Detected RSV (PCR) Not Detected Entero/Rhino (PCR) DETECTED A Blood Type Antibody Screen Crossmatch 08/04/24 08:34 WBC RBC Hgb Hct MCV MCH MCHC RDW Std Deviation RDW Coeff of Jordi Plt Count MPV Immature Gran % (Auto) Neut % (Auto) Lymph % (Auto) [place] % (Auto) Eos % (Auto) Baso % (Auto) Neut # (Auto) Lymph # (Auto) [place] # (Auto) Eos # (Auto) Baso # (Auto) Immature Gran # (Auto) Sodium Potassium Chloride Carbon Dioxide Anion Gap BUN Creatinine Est Cr Clr Drug Dosing eGFR BUN/Creatinine Ratio Glucose Lactate Calcium Magnesium Adenovirus (PCR) B. pertussis DNA (PCR) B.parapertussis DNA PCR C. pneumoniae DNA (PCR) Coronavirus OC43 (PCR) Coronavirus HKU1 (PCR) Coronavirus 229E (PCR) SARS-CoV-2 (PCR) Coronavirus NL63 (PCR) Human Metapneumovir PCR Influenza Type A (PCR) Influenza Type B (PCR) M. pneumoniae (PCR) Parainfluenza 1 (PCR) Parainfluenza 2 (PCR) Parainfluenza 3 (PCR) Parainfluenza 4 (PCR) RSV (PCR) Entero/Rhino (PCR) Blood Type O Positive Antibody Screen NEGATIVE Crossmatch See Detail Diagnostic Findings Abdomen/Pelvis CT 08/02/24 10:28 CT OF THE ABDOMEN AND PELVIS WITHOUT CONTRAST CLINICAL HISTORY: diverticulitis, failure to progress COMPARISON STUDY: CT of the abdomen and pelvis July 26, 2024. TECHNIQUE: Axial images of the abdomen and pelvis were obtained without IV contrast. Images were reviewed in the axial, sagittal, and coronal planes. Automated exposure control was utilized for the study. A dose lowering technique was utilized adhering to the principles of ALARA. FINDINGS: Small bilateral pleural effusions have developed. No pneumatosis, free air or portal venous gas is present. A hypodense 1.2 cm hepatic lesion represents a cyst. There is no biliary ductal dilatation status post cholecystectomy. Unenhanced images of the spleen, adrenal glands, left kidney and pancreas are unremarkable. Moderate right renal cortical thinning with atrophy is present. There is no hydronephrosis. There are no urinary calculi. There is no evidence for a bowel obstruction. Extensive left colon diverticulosis is present. Wall thickening with inflammation adjacent to the mid to distal descending colon and proximal sigmoid colon is similar to CT of July 26, 2024. There is no free air. There is no fluid collection to suggest abscess. Rectal wall thickening with mild perirectal inflammation has developed. IMPRESSION: 1. Extensive left colon diverticulosis. No significant change in mild wall thickening with moderate pericolonic inflammation involving the mid to distal descending colon and proximal sigmoid colon since prior CT. This favors acute diverticulitis. A nonspecific colitis could appear similar. No free air or abscess. 2. Interval development of mild rectal wall thickening with perirectal inflammation. This represents a nonspecific superimposed proctitis. ACT 112: Negative or not required by law. Electronically signed by: Sam Cardona M.D. 08/02/2024 11:13 AM Medications Administered Home Medications Medication Instructions Recorded Confirmed Last Taken lorazepam 0.5 mg tablet 0.5 mg PO DAILY PRN Anxiety 04/14/21 07/26/24 05/22/23 07:30 metoprolol succinate 25 mg 25 mg PO BID 04/14/21 07/26/24 07/25/24 tablet,extended release 24 hr acetaminophen 500 mg tablet 1,000 mg PO Q6H PRN Back Pain 04/27/21 07/26/24 04/23/24 (Tylenol Extra Strength) losartan 100 mg tablet 100 mg PO QAM 05/13/23 07/26/24 07/25/24 amlodipine 10 mg tablet 10 mg PO QAM 08/05/23 07/26/24 07/25/24 famotidine 20 mg tablet 20 mg PO BID 03/16/24 07/26/24 07/25/24 furosemide 20 mg tablet 20 mg PO QAM Fluid Retention 03/16/24 07/26/24 07/25/24 potassium gluconate 500 mg (83 mg) 500 mg PO QAM 04/16/24 07/26/24 07/25/24 tablet polyethylene glycol 3350 17 gram 17 g PO DAILY PRN Constipation 07/26/24 07/26/24 Unknown oral powder packet (Miralax) Active Medications Generic Name Dose Route Start Last Admin Trade Name Stephenq PRN Reason Stop Dose Admin Acetaminophen 1,000 mg 07/26/24 21:26 08/03/24 22:08 Acetaminophen 500 Mg Tab PO 08/25/24 18:20 1,000 mg Q6H PRN Administration Pain or Fever Amlodipine Besylate 10 mg 07/27/24 09:00 08/04/24 09:20 Amlodipine Besylate 5 Mg Tab PO 08/26/24 08:59 10 mg QAM JAYLIN Administration Dorado Syrup 5 ml 07/26/24 19:00 08/04/24 09:25 [place]ado Syrup 5 Ml Udp PO 08/05/24 18:59 5 ml DAILY JAYLIN Administration Enoxaparin Sodium 40 mg 07/26/24 19:00 08/03/24 18:06 Enoxaparin Inj 40 Mg/0.4 Ml Syr SQ 08/25/24 18:59 Not Given Q24H JAYLIN Famotidine 20 mg 07/26/24 21:00 08/04/24 09:20 Famotidine 20 Mg Tab PO 08/25/24 20:59 20 mg BID JAYLIN Administration Hydromorphone HCl 0.25 mg 07/26/24 18:21 08/03/24 15:47 Hydromorphone Inj 0.5 Mg/0.5 Ml Syr IV 08/09/24 18:20 0.25 mg Q6H PRN Administration Moderate Pain (Scale 4, 5, 6) Hydromorphone HCl 0.5 mg 07/26/24 18:21 08/04/24 01:17 Hydromorphone Inj 0.5 Mg/0.5 Ml Syr IV 08/09/24 18:20 0.5 mg Q6H PRN Administration Severe Pain (Scale 7, 8, 9,10) Ciprofloxacin 400 mg in 200 mls @ 100 mls/hr 08/02/24 16:30 08/04/24 07:34 Cipro / D5w IV 08/12/24 16:29 Infused Q12H JAYLIN Infusion Protocol Metronidazole 500 mg in 100 mls @ 100 mls/hr 08/02/24 16:30 08/04/24 10:48 Flagyl IV 08/12/24 16:29 Infused Q8H JAYLIN Infusion Protocol Parenteral Electrolytes 1,000 mls @ 125 mls/hr 08/02/24 18:00 08/04/24 04:23 Plasma-Lyte A Ph 7.4 IV 08/04/24 17:59 125 mls/hr .Q8H JAYLIN Infusion Losartan Potassium 100 mg 07/27/24 09:00 08/04/24 09:22 Losartan Potassium 50 Mg Tab PO 08/26/24 08:59 100 mg QAM JAYLIN Administration Metoprolol Succinate 25 mg 07/26/24 21:00 08/04/24 09:22 Metoprolol Succ 25mg Ext Rel Tab PO 08/25/24 20:59 25 mg BID JAYLIN Administration Polyethylene Glycol 17 gm 07/28/24 21:00 08/04/24 09:25 Polyethylene (Miralax) 17 Gm Pack PO 08/27/24 20:59 Not Given BID JAYLIN Vancomycin HCl 125 mg 07/26/24 19:00 08/04/24 10:14 Vancomycin Hcl 125 Mg/2.5ml Soln PO 08/25/24 18:59 125 mg DAILY JAYLIN Administration Vitamin D 50 mcg 07/27/24 09:00 08/04/24 09:22 Cholecalciferol 25 Mcg (1000 Units) Tab PO 08/26/24 08:59 50 mcg QAM JAYLIN Administration
[2024-08-05 06:48] LABS: Basophils # (auto) 0.03 K/uL (0.00-0.20); Basophils % (auto) 0.5 %; Eosinophils # (auto) 0.35 K/uL (0.00-0.50); Eosinophils % (auto) 6.1 %; Hematocrit (blood only) 27.9 % (37.0-47.0); Hemoglobin 8.9 g/dl (12.0-16.0); Immature Granulocytes # (auto) 0.04 K/uL (0.01-0.20); Immature Granulocytes % (auto) 0.7 %; Lymphocytes # (auto) 1.74 K/uL (1.20-3.40); Lymphocytes % (auto) 30.1 %; Mean Corpuscular Hemoglobin 27.7 pg (25.0-34.0); Mean Corpuscular Hgb Conc 31.9 g/dL (32.0-36.0); Mean Corpuscular Volume 86.9 fL (80.0-100.0); Mean Platelet Volume 9.5 fL (9.4-12.4); Monocytes # (auto) 0.66 K/uL (0.11-0.59); Monocytes % (auto) 11.4 %; Neutrophils # (auto) 2.96 K/uL (1.40-6.50); Neutrophils % (auto) 51.2 %; Platelet Count 318 K/uL (130-400); RDW Coefficient of Variation 13.3 % (11.5-14.5); RDW Standard Deviation 41.4 fL (36.4-46.3); Red Blood Count 3.21 M/uL (4.20-5.40); White Blood Count 5.78 K/ul (4.8-10.8)
[2024-08-05 07:12] LABS: BUN Creatinine Ratio 10.4 (10-20); Calcium 8.2 mg/dl (8.6-10.3); Potassium 3.4 mmol/L (3.5-5.1)
--- NOTE | 2024-08-05 08:45 | Hospitalist Progress Note ---
Date of Service August 05, 2024 Assessment & Plan (1) Diverticulitis: (2) Rhinovirus: (3) Elevated troponin: Plan 78-year-old female with a history of recurrent acute diverticulitis, C. difficile colitis, chronic constipation/dyssynergic defecation, CKD stage III, HTN, GERD, anxiety who presents to the ER with severe left lower quadrant abdominal pain that started 1 day prior. Diverticulitis unasyn initially->Zosyn now cipro flagyl with CT worsening - CTA/P: Repeat CT shows extensive left colon diverticulosis, no change in pericolonic inflammation favoring acute diverticulitis. Interval development of nonspecific superimposed proctitis ID consult Continue cipro/flagyl for now.( qtc < 500). Since she is slow to improve, will treat for 14 TOTAL days of antibiotics ( 07/26-08/09) If continued abdominal pain, consider surgery evaluation Continue Cdifficile prophylaxis with vanco po daily to end 7 d after completion of antibiotic therapy, C diff repeat was negative. Cough - Dry cough, congestion without fever developed 08/03 - Biofire + rhinovirus, supportive care - No hypoxia Elevated troponin, demand ischemia No signs of ACS at time of reassessment DVT prophylaxis: Lovenox CODE STATUS: Full code Family updated at bedside Disposition planning: when pt able to tolerate advanced diet and pain controlled Admission and Anticipated Discharge Date Admission Date: July 26, 2024 Results & Data Results & Data Vital Signs (Past 12 Hours) Vital Signs Temp Pulse Pulse Resp BP Pulse Ox O2 Del Method 08/05/24 07:48 Room Air 08/05/24 07:39 98.2 F 60 18 147/67 H 97 Room Air 08/05/24 03:29 98.4 F 53 L 18 137/52 L 95 Room Air 08/04/24 23:36 98.2 F 58 L 18 119/61 94 Room Air 08/04/24 21:48 63 08/04/24 21:25 Room Air Laboratory Results reviewed cbc reviewed chemistry PG Care Time/CCT Total # of Minutes Spent Total Time Spent with Patient: Total time spent is greater than 50% in coordination of care (as documented) at patient's floor/unit and/or counseling patient: Coding Level of Care Code 76201 SUB INP/OBS CARE 3/50MIN Diagnoses Diverticulitis K57.92 Rhinovirus B34.8 Elevated troponin R79.89
--- NOTE | 2024-08-05 11:18 | Infectious Disease Progress Nt ---
Date of Service August 05, 2024 Assessment & Plan (1) History of diverticulitis: (2) Abdominal pain, acute, left lower quadrant: (3) Diverticulitis: Plan This is an [id number]-year-old female with a past medical history of GERD, fibromyalgia, gallstone pancreatitis (07/2023),chronic cholecystitis status post lap cholecystectomy recurrent acute diverticulitis, C. difficile colitis, chronic constipations, CKD stage III, hypertension, anxiety who presents to the ED left-sided abdominal pain on 07/26 ongoing for few days but had worsened in the last 24 hours prior to admission. She was admitted 01/03 - 01/10 with acute diverticulitis (treated with ceftriaxone/Flagyl--> Unasyn inpatient)and discharged on Augmentin and then presented 01/18 - 01/28 with abdominal pain, diarrhea, fevers and diagnosed with C. difficile colitis. CTAP at the time w/ findings concerning for nonspecific proctocolitis of the left colon, advanced colon diverticulosis without acute diverticulitis. She completed a 14-day course of oral vancomycin on 02/02.She was admitted 02/24-03/01 with possible relapse or recurrence of C. difficile infection or diverticulitis. She was evaluated by ID. C. difficile testing was consistent with C. difficile colonization/carrier state. However given her abdominal pain,continued pancolitis on imaging , leukocytosis , she was treated as a possible second C. difficile episode.There were 2 adjacent inflamed diverticulum within the proximal sigmoid colon with mild surrounding fat stranding that may have been 2/2 superimposed acute diverticulitis. .Fidaxomicin was started , but insurance did not cover ,so she she was discharged on an oral vancomycin taper and cipro/flagyl for 10 days with resolution of symptoms. She underwent outpatient colonoscopy on 04/27/24 with benign findings: sigmoid diverticulosis and hemorrhoids. On this admission,in the ED, temperature 36.6, pulse 82, blood pressure 201/77, 20, O2 sats 99% on room air. Labs: WBC 24.32, BUN 13, creatinine 1.13. C. difficile testing negative. CTAP findings are compatible with acute div erticulitis without evidence of perforation or abscess.She was started on Zosyn for acute diverticulitis and prophylactic vancomycin p.o. daily for history of Cdiff. On therapy her leukocytosis resolved. Antibiotics were switched to Unasyn. She continued to have poor appetite with mild left lower quadrant pain and mild right lower quadrant pain. Repeat CTAP showed extensive diverticulosis of the left colon. No significant change in mild wall thickening with moderate pericolonic inflammation involving the mid to distal descending colon and proximal sigmoid colon. These findings favor acute diverticulitis. Nonspecific colitis could appear similar. No free air or abscess. There is interval development of mild rectal wall thickening with perirectal inflammation. Findings could represent superimposed proctitis. Because of slow clinical progression the primary team switched antibiotics to Cipro and Flagyl. During her hospital course, she developed a dry cough and congestion without fever. A respiratory viral panel was ordered and is positive for entero-/rhinovirus on 08/03. Infectious disease consulted for diverticulitis Microbiology Cdiff toxing gene negative 08/02 Antibiotics Zosyn 07/26 - 07/29 Vanco p.o. 07/26 Unasyn 07/30 - 08/02 Flagyl 08/02ongoing Cipro 08/02ongoing # Possible recurrent diverticulitis # Leukocytosisresolved -WBC 24.32--> 6.72 # History of C. difficile infection, no acute infection currently, first episode 12/2023-01/2024 # Entero/rhino virus positive, on RA # History of Lyme disease, treated 08/05 - denies diarrhea. Has loose stools only with miralax, has less Left abdominal pain but continued. Denies R sided abdominal pain.Qtc 434 - 07/28 Discussion There is no evidence of complicated diverticulitis: She is without abscess, tonny perforation, obstruction or fistulization on repeat CTAP although w/o contrast. Has some findings c/f mild proctitis. Her leukocytosis has resolved on antibiotic therapy and she remains hemodynamically stable and afebrile. She has a history of C. difficile infection and has been started on C diff prophylaxis while on antibiotics: C. difficile testing is negative. She has been on appropriate antibiotic coverage for acute diverticulitis since admission. Anticipate 10- 14 d of therapy. Recommendations Continue cipro/flagyl for now.( qtc < 500). Since she is slow to improve, would treat for 14 TOTAL days of antibiotics ( 07/26-08/09/2024).Can change to cipro 500 mg po and flagyl 500 mg PO bid when able to take po. If continued abdominal pain, consider surgery evaluation Continue Cdifficile prophylaxis with vanco po daily to end 7 d after completion of antibiotic therapy ( EOT 08/16/2024) . ID will sign off. Call with questions. Rica Dickey MD, MPH Infectious Disease [facility], [facility] Call [phone] with questions Admission and Anticipated Discharge Date Admission Date: July 26, 2024 Subjective Subsequent visit was provided via telemedicine using two-way real-time interactive telecommunication between the patient and the telemedicine provider. For the duration of the visit, the provider was performing the assessment from a different facility than the patient. This includesuse of bluetooth stethoscope forauscultationperformed by the telepresenter that the telemedicine provider can hear if described in the physical exam. App[employer]er contact information: Please call [facility] Center [phone]. (Phone Number For Physician Use Only) After establishing a telemedicine visit, patient was: Patient was verified with two unique identifiers Time Spent with Patient: Subsequent => 35 min has some loose stools on miralax, no tonny blood has continued L sided ab pain but less No nausea or vomiting no fever daughter at BS Physical Exam Physical Exam: Gen- NAD HEENT- anicteric sclera Neck- supple Lungs- Non labored breathing, On RA Abdomen- softly distended, left Half mild ttp Neuro- AAO times 4 Psych - cooperative Results & Data Vital Signs (Past 12 Hours) Vital Signs Temp Pulse Pulse Resp BP BP Pulse Ox 08/05/24 11:02 36.8 C 60 16 127/61 97 08/05/24 09:24 51 L 08/05/24 07:48 08/05/24 07:39 36.8 C 60 18 147/67 H 97 08/05/24 03:29 36.9 C 53 L 18 137/52 L 95 08/04/24 23:36 36.8 C 58 L 18 119/61 94 O2 Del Method 08/05/24 11:02 Room Air 08/05/24 09:24 08/05/24 07:48 Room Air 08/05/24 07:39 Room Air 08/05/24 03:29 Room Air 08/04/24 23:36 Room Air Laboratory Results Short CBC 08/05/24 Range/Units 06:02 WBC 5.78 (4.8-10.8) K/ul Hgb 8.9 L (12.0-16.0) g/dl Hct 27.9 L (37.0-47.0) % Plt Count 318 (130-400) K/uL BMP 08/05/24 06:02 Sodium 139 Potassium 3.4 L Chloride 108 H Carbon Dioxide 24 BUN 13 Creatinine 1.25 H Glucose 103 H Calcium 8.2 L Diagnostic Findings Abdomen/Pelvis CT 08/02/24 10:28 CT OF THE ABDOMEN AND PELVIS WITHOUT CONTRAST CLINICAL HISTORY: diverticulitis, failure to progress COMPARISON STUDY: CT of the abdomen and pelvis July 26, 2024. TECHNIQUE: Axial images of the abdomen and pelvis were obtained without IV contrast. Images were reviewed in the axial, sagittal, and coronal planes. Automated exposure control was utilized for the study. A dose lowering technique was utilized adhering to the principles of ALARA. FINDINGS: Small bilateral pleural effusions have developed. No pneumatosis, free air or portal venous gas is present. A hypodense 1.2 cm hepatic lesion represents a cyst. There is no biliary ductal dilatation status post cholecystectomy. Unenhanced images of the spleen, adrenal glands, left kidney and pancreas are unremarkable. Moderate right renal cortical thinning with atrophy is present. There is no hydronephrosis. There are no urinary calculi. There is no evidence for a bowel obstruction. Extensive left colon diverticulosis is present. Wall thickening with inflammation adjacent to the mid to distal descending colon and proximal sigmoid colon is similar to CT of July 26, 2024. There is no free air. There is no fluid collection to suggest abscess. Rectal wall thickening with mild perirectal inflammation has developed. IMPRESSION: 1. Extensive left colon diverticulosis. No significant change in mild wall thickening with moderate pericolonic inflammation involving the mid to distal descending colon and proximal sigmoid colon since prior CT. This favors acute diverticulitis. A nonspecific colitis could appear similar. No free air or abscess. 2. Interval development of mild rectal wall thickening with perirectal inflammation. This represents a nonspecific superimposed proctitis. ACT 112: Negative or not required by law. Electronically signed by: Sam Cardona M.D. 08/02/2024 11:13 AM Medications Administered Home Medications Medication Instructions Recorded Confirmed Last Taken lorazepam 0.5 mg tablet 0.5 mg PO DAILY PRN Anxiety 04/14/21 07/26/24 05/22/23 07:30 metoprolol succinate 25 mg 25 mg PO BID 04/14/21 07/26/24 07/25/24 tablet,extended release 24 hr acetaminophen 500 mg tablet 1,000 mg PO Q6H PRN Back Pain 04/27/21 07/26/24 04/23/24 (Tylenol Extra Strength) losartan 100 mg tablet 100 mg PO QAM 05/13/23 07/26/24 07/25/24 amlodipine 10 mg tablet 10 mg PO QAM 08/05/23 07/26/24 07/25/24 famotidine 20 mg tablet 20 mg PO BID 03/16/24 07/26/24 07/25/24 furosemide 20 mg tablet 20 mg PO QAM Fluid Retention 03/16/24 07/26/24 07/25/24 potassium gluconate 500 mg (83 mg) 500 mg PO QAM 04/16/24 07/26/24 07/25/24 tablet polyethylene glycol 3350 17 gram 17 g PO DAILY PRN Constipation 07/26/24 07/26/24 Unknown oral powder packet (Miralax) Active Medications Generic Name Dose Route Start Last Admin Trade Name Freq PRN Reason Stop Dose Admin Acetaminophen 1,000 mg 07/26/24 21:26 08/03/24 22:08 Acetaminophen 500 Mg Tab PO 08/25/24 18:20 1,000 mg Q6H PRN Administration Pain or Fever Amlodipine Besylate 10 mg 07/27/24 09:00 08/05/24 08:02 Amlodipine Besylate 5 Mg Tab PO 08/26/24 08:59 10 mg QAM JAYLIN Administration Dorado Syrup 5 ml 07/26/24 19:00 08/05/24 08:02 Dorado Syrup 5 Ml Udp PO 08/05/24 18:59 5 ml DAILY JAYLIN Administration Enoxaparin Sodium 40 mg 07/26/24 19:00 08/03/24 18:06 Enoxaparin Inj 40 Mg/0.4 Ml Syr SQ 08/25/24 18:59 Not Given Q24H JAYLIN Famotidine 20 mg 07/26/24 21:00 08/05/24 08:03 Famotidine 20 Mg Tab PO 08/25/24 20:59 20 mg BID JAYLIN Administration Hydromorphone HCl 0.25 mg 07/26/24 18:21 08/03/24 15:47 Hydromorphone Inj 0.5 Mg/0.5 Ml Syr IV 08/09/24 18:20 0.25 mg Q6H PRN Administration Moderate Pain (Scale 4, 5, 6) Hydromorphone HCl 0.5 mg 07/26/24 18:21 08/04/24 23:05 Hydromorphone Inj 0.5 Mg/0.5 Ml Syr IV 08/09/24 18:20 0.5 mg Q6H PRN Administration Severe Pain (Scale 7, 8, 9,10) Ciprofloxacin 400 mg in 200 mls @ 100 mls/hr 08/02/24 16:30 08/05/24 06:12 Cipro / D5w IV 08/09/24 23:59 Infused Q12H JAYLIN Infusion Protocol Metronidazole 500 mg in 100 mls @ 100 mls/hr 08/02/24 16:30 08/05/24 10:36 Flagyl IV 08/09/24 23:59 Infused Q8H JAYLIN Infusion Protocol Losartan Potassium 100 mg 07/27/24 09:00 08/05/24 08:02 Losartan Potassium 50 Mg Tab PO 08/26/24 08:59 100 mg QAM JAYLIN Administration Metoprolol Succinate 25 mg 07/26/24 21:00 08/05/24 08:01 Metoprolol Succ 25mg Ext Rel Tab PO 08/25/24 20:59 25 mg BID JAYLIN Administration Polyethylene Glycol 17 gm 07/28/24 21:00 08/05/24 08:05 Polyethylene (Miralax) 17 Gm Pack PO 08/27/24 20:59 Not Given BID JAYLIN Vancomycin HCl 125 mg 07/26/24 19:00 08/05/24 08:08 Vancomycin Hcl 125 Mg/2.5ml Soln PO 08/25/24 18:59 125 mg DAILY JAYLIN Administration Vitamin D 50 mcg 07/27/24 09:00 08/05/24 08:01 Cholecalciferol 25 Mcg (1000 Units) Tab PO 08/26/24 08:59 50 mcg QAM JAYLIN Administration
--- NOTE | 2024-08-06 07:40 | Hospitalist Progress Note ---
Date of Service August 06, 2024 Assessment & Plan (1) Diverticulitis: (2) Rhinovirus: (3) Elevated troponin: Plan 78-year-old female with a history of recurrent acute diverticulitis, C. difficile colitis, chronic constipation/dyssynergic defecation, CKD stage III, HTN, GERD, anxiety who presents to the ER with severe left lower quadrant abdominal pain that started 1 day prior. Diverticulitis unasyn initially->Zosyn now cipro flagyl - CTA/P: Repeat CT shows extensive left colon diverticulosis, no change in pericolonic inflammation favoring acute diverticulitis. Interval development of nonspecific superimposed proctitis ID consult Continue cipro/flagyl for now.( qtc < 500). Since she is slow to improve, will treat for 14 TOTAL days of antibiotics ( 07/26-08/09) Continue C difficile prophylaxis with vanco po daily to end 7 d after completion of antibiotic therapy, C diff repeat was negative. Cough - Dry cough, congestion without fever developed 08/03 - Biofire + rhinovirus, supportive care( tested covid + 08/05/24) - No hypoxia Elevated troponin, demand ischemia No signs of ACS at time of reassessment DVT prophylaxis: Lovenox CODE STATUS: Full code Family updated at bedside Disposition planning: consider home 08/07 Admission and Anticipated Discharge Date Admission Date: July 26, 2024 Subjective pt is seem with family states felt some bloating and pain after evening meal 08/05 no bowel movement yet 08/06 Physical Exam Physical Exam: slightly distended tympanitic abdomen very little discomfort normal bowel sounds Results & Data Results & Data Vital Signs (Past 12 Hours) Vital Signs Temp Pulse Pulse Resp BP Pulse Ox O2 Del Method 08/06/24 07:25 Room Air 08/06/24 05:31 57 L 08/06/24 03:10 98.2 F 55 L 16 146/65 H 97 Room Air 08/05/24 23:22 98.2 F 55 L 16 138/65 96 Room Air 08/05/24 21:40 54 L 08/05/24 19:45 Room Air Laboratory Results review cbc review chemistry PG Care Time/CCT Total # of Minutes Spent Total Time Spent with Patient: Total time spent is greater than 50% in coordination of care (as documented) at patient's floor/unit and/or counseling patient: Coding Level of Care Code 33474 SUB INP/OBS CARE MIN Diagnoses Diverticulitis K57.92 Rhinovirus B34.8 Elevated troponin R79.89
[2024-08-06 08:11] LABS: Basophils # (auto) 0.02 K/uL (0.00-0.20); Basophils % (auto) 0.3 %; Eosinophils # (auto) 0.27 K/uL (0.00-0.50); Eosinophils % (auto) 4.6 %; Hematocrit (blood only) 30.1 % (37.0-47.0); Hemoglobin 9.6 g/dl (12.0-16.0); Immature Granulocytes # (auto) 0.03 K/uL (0.01-0.20); Immature Granulocytes % (auto) 0.5 %; Lymphocytes # (auto) 1.46 K/uL (1.20-3.40); Lymphocytes % (auto) 24.7 %; Mean Corpuscular Hemoglobin 27.4 pg (25.0-34.0); Mean Corpuscular Hgb Conc 31.9 g/dL (32.0-36.0); Mean Corpuscular Volume 85.8 fL (80.0-100.0); Mean Platelet Volume 9.7 fL (9.4-12.4); Monocytes # (auto) 0.59 K/uL (0.11-0.59); Neutrophils # (auto) 3.54 K/uL (1.40-6.50); Neutrophils % (auto) 59.9 %; Platelet Count 341 K/uL (130-400); RDW Coefficient of Variation 13.3 % (11.5-14.5); RDW Standard Deviation 41.3 fL (36.4-46.3); Red Blood Count 3.51 M/uL (4.20-5.40); White Blood Count 5.91 K/ul (4.8-10.8)
[2024-08-07 08:19] LABS: Creatinine Clr Calc Pharmacy 31.5 ml/min
--- NOTE | 2024-08-07 23:10 | Hospitalist Progress Note ---
Date of Service August 07, 2024 Assessment & Plan (1) Diverticulitis: (2) Rhinovirus: (3) Elevated troponin: Plan 78-year-old female with a history of recurrent acute diverticulitis, C. difficile colitis, chronic constipation/dyssynergic defecation, CKD stage III, HTN, GERD, anxiety who presents to the ER with severe left lower quadrant abdominal pain that started 1 day prior. Diverticulitis unasyn initially->Zosyn now cipro flagyl - CTA/P: Repeat CT shows extensive left colon diverticulosis, no change in pericolonic inflammation favoring acute diverticulitis. Interval development of nonspecific superimposed proctitis ID consult Continue cipro/flagyl for now.( qtc < 500). Since she is slow to improve, will treat for 14 TOTAL days of antibiotics ( 07/26-08/09) Continue C difficile prophylaxis with vanco po daily to end 7 d after completion of antibiotic therapy, C diff repeat was negative. Patient continues with pain on cipro and flagyl on 08/07 will hold discharge. If pain persists may consider ct abd/pelvis CBc and vitals are notaml Cough - Dry cough, congestion without fever developed 08/03 - Biofire + rhinovirus, supportive care( tested covid + 08/05/24) - No hypoxia Elevated troponin, demand ischemia No signs of ACS at time of reassessment DVT prophylaxis: Lovenox CODE STATUS: Full code Family updated at bedside Disposition planning: consider home 08/08 discussed with telehealth case manager. reviewed notes Admission and Anticipated Discharge Date Admission Date: July 26, 2024 Subjective Patient reports she continues to have abdominal pain. She is not quite at baseline. Physical Exam Physical Exam: slightly distended very little discomfort normal bowel sounds Results & Data Results & Data Vital Signs (Past 12 Hours) Vital Signs Temp Pulse Pulse Resp BP BP Pulse Ox 08/07/24 22:46 36.3 C L 69 18 158/76 H 97 08/07/24 20:13 36.7 C 60 18 137/73 98 08/07/24 16:19 67 08/07/24 15:14 36.7 C 62 16 127/64 98 08/07/24 11:32 36.6 C 66 16 151/67 H 98 O2 Del Method 08/07/24 22:46 Room Air 08/07/24 20:13 Room Air 08/07/24 16:19 08/07/24 15:14 Room Air 08/07/24 11:32 Room Air PG Care Time/CCT Total # of Minutes Spent Total Time Spent with Patient: Total time spent is greater than 50% in coordination of care (as documented) at patient's floor/unit and/or counseling patient: Coding Level of Care Code 38233 SUB INP/OBS CARE 3/50MIN Diagnoses Diverticulitis K57.92 Rhinovirus B34.8 Elevated troponin R79.89
[2024-08-08 06:40] LABS: Hematocrit (blood only) 29.8 % (37.0-47.0); Hemoglobin 9.6 g/dl (12.0-16.0); Mean Corpuscular Hemoglobin 27.7 pg (25.0-34.0); Mean Corpuscular Hgb Conc 32.2 g/dL (32.0-36.0); Mean Corpuscular Volume 86.1 fL (80.0-100.0); Mean Platelet Volume 9.9 fL (9.4-12.4); Platelet Count 347 K/uL (130-400); RDW Coefficient of Variation 13.6 % (11.5-14.5); RDW Standard Deviation 41.9 fL (36.4-46.3); Red Blood Count 3.46 M/uL (4.20-5.40); White Blood Count 6.42 K/ul (4.8-10.8)
[2024-08-08 06:54] LABS: C Reactive Protein 0.77 mg/dl (0-0.5); Creatinine Clr Calc Pharmacy 31.8 ml/min; Potassium 3.2 mmol/L (3.5-5.1)
--- NOTE | 2024-08-08 10:34 | Discharge Summary ---
Discharge Summary Date of Service August 08, 2024 Principal Dx & Hospital Course #1 = Principal Diagnosis (1) Diverticulitis: (2) Rhinovirus: (3) Elevated troponin: Plan 78-year-old female with a history of recurrent acute diverticulitis, C. difficile colitis, chronic constipation/dyssynergic defecation, CKD stage III, HTN, GERD, anxiety who presents to the ER with severe left lower quadrant abdominal pain that started 1 day prior. Diverticulitis unasyn initially->Zosyn now cipro flagyl - CTA/P: Repeat CT shows extensive left colon diverticulosis, no change in pericolonic inflammation favoring acute diverticulitis. Interval development of nonspecific superimposed proctitis ID consult Continue cipro/flagyl for now.( qtc < 500). Since she is slow to improve, will treat for 14 TOTAL days of antibiotics ( 07/26-08/09) Continue C difficile prophylaxis with vanco po daily to end 7 d after completion of antibiotic therapy, C diff repeat was negative. Patient continues with pain on cipro and flagyl on 08/07 will hold discharge. If pain persists may consider ct abd/pelvis CBc and vitals are notaml Cough - Dry cough, congestion without fever developed 08/03 - Biofire + rhinovirus, supportive care( tested covid + 08/05/24) - No hypoxia Elevated troponin, demand ischemia No signs of ACS at time of reassessment DVT prophylaxis: Lovenox CODE STATUS: Full code Family updated at bedside Disposition planning: consider home 08/08 discussed with rn case mgr. reviewed notes Admission HPI Per Admitting Provider This patient is an 78-year-old female with a history of recurrent acute diverticulitis, C. difficile colitis, chronic constipation/dyssynergic defecation, CKD stage III, HTN, GERD, anxiety who presents to the ER with severe left lower quadrant abdominal pain that started 1 day prior. She reports 3 to 4 days of not moving her bowels at all which is a chronic issue for her and initially she thought the abdominal pain was secondary to constipation. However it became severe and she presented to the ER. Tylenol was not helping the pain at home. She denies fevers or chills. She has a mild headache. Denies nausea/vomiting. Denies chest pains or shortness of breath. In the ER, she was found to have acute sigmoid diverticulitis, a significant leukocytosis of 24, and a mild elevation in troponin of 18. ECG without ischemic changes. Discharge Plan Discharge Items Patient Disposition: Home - Self-Care Reason For Visit: ACUTE DIVERTICULITIS Discharge Diagnosis: acute diverticulitis Activity: Resume your previous activity Non-emergency contact: Primary Care Provider Call non-emergency contact if: you have any medication questions Follow-up/Referrals: Peter Stark [Primary Care Provider] - Diet: Low Fiber Addtl Attending Provider Instructions: A low fiber diet is typically recommended for individuals with certain medical conditions or as a temporary measure to relieve digestive symptoms. Here is some basic information about a low fiber diet: 1. Purpose: A low fiber diet limits the intake of foods high in dietary fiber to reduce the workload on the digestive system and ease symptoms like diarrhea, abdominal pain, or cramping. 2. Foods to limit or avoid: - Whole grains (e.g., whole wheat, whole oats, brown rice) - Legumes (e.g., lentils, beans, chickpeas) - Nuts and seeds - Raw fruits and vegetables (except for some cooked or peeled options) - High-fiber cereals or breads 3. Foods generally allowed: - Refined grains (e.g., white bread, white rice, refined cereals) - Cooked and peeled fruits and vegetables (e.g., applesauce, canned fruits, cooked carrots) - Lean meats, poultry, and fish - Dairy products (unless lactose intolerant) - Eggs 4. Cooking and preparation methods: - Choose peeled or cooked fruits and vegetables instead of raw ones. - Remove seeds and skin from fruits and vegetables. - Opt for refined grain products instead of whole grains. - Cook or soak legumes to reduce their fiber content. Recommend followup with PCP in 1-2 weeks. Start metronidazol early in the afternoon every 8 hours for 3 more doses. Take ciprofloxacin tonight around 6-7 pm every 12 hours and take for 2 more doses. Take vancomycin starting tomorrow morning once a day for 8 days Pending Studies at Discharge: No Stand-Alone Forms: [employer], Smoking Cessation Medications and DC Order Prescriptions: New metronidazole 500 mg tablet 500 mg PO Q8H Qty: 3 0RF Rx Instructions: First dose early afternoon 2pm, then evening then morning. ciprofloxacin HCl 500 mg tablet 500 mg PO BID Qty: 2 0RF Rx Instructions: First dose in the evening with dinner 6-7 pm. then in the morning with breakfast 6-7 am vancomycin 125 mg capsule 125 mg PO DAILY Qty: 8 0RF Rx Instructions: first dose on 08/09 in the morning Continued lorazepam 0.5 mg tablet 0.5 mg PO DAILY PRN (Reason: Anxiety) metoprolol succinate 25 mg tablet extended release 24 hr 25 mg PO BID acetaminophen [Tylenol Extra Strength] 500 mg Tablet 1,000 mg PO Q6H PRN (Reason: Back Pain) losartan 100 mg Tablet 100 mg PO QAM amlodipine 10 mg tablet 10 mg PO QAM potassium gluconate 500 mg (83 mg) Tablet 500 mg PO QAM famotidine 20 mg tablet 20 mg PO BID furosemide 20 mg tablet 20 mg PO QAM polyethylene glycol 3350 [Miralax] 17 gram Powder In Packet 17 g PO DAILY PRN (Reason: Constipation) Discharge Orders: Discharge Order (Routine); Ordered 08/08/24 Ordered By: Derian Murguia/Other Patient Handouts: Low-Fiber Diet Admission Data Admit Date/Time: 07/26/24 17:01 Attending Provider: Derian Ruiz Admit Provider: Trang Ponce Primary Care Provider: Peter Stark Other Providers: Trang Ponce Hospital Stay Data Consultations 07/26/24 13:50 ED Decision to Admit Stat 08/04/24 12:06 Consult Infectious Diseases Routine Diagnostic Imagining Performed 07/26/24 11:37 CT abd pelvis wo con Stat 08/02/24 10:28 CT Abd and Pelvis [CT abd pelvis wo con] Urgent Pending Results Patient Have Any Pending Studies at Discharge: No Discharge Instructions Given to Patient (Per Discharging Provider) A low fiber diet is typically recommended for individuals with certain medical conditions or as a temporary measure to relieve digestive symptoms. Here is some basic information about a low fiber diet: 1. Purpose: A low fiber diet limits the intake of foods high in dietary fiber to reduce the workload on the digestive system and ease symptoms like diarrhea, abdominal pain, or cramping. 2. Foods to limit or avoid: - Whole grains (e.g., whole wheat, whole oats, brown rice) - Legumes (e.g., lentils, beans, chickpeas) - Nuts and seeds - Raw fruits and vegetables (except for some cooked or peeled options) - High-fiber cereals or breads 3. Foods generally allowed: - Refined grains (e.g., white bread, white rice, refined cereals) - Cooked and peeled fruits and vegetables (e.g., applesauce, canned fruits, cooked carrots) - Lean meats, poultry, and fish - Dairy products (unless lactose intolerant) - Eggs 4. Cooking and preparation methods: - Choose peeled or cooked fruits and vegetables instead of raw ones. - Remove seeds and skin from fruits and vegetables. - Opt for refined grain products instead of whole grains. - Cook or soak legumes to reduce their fiber content. Recommend followup with PCP in 1-2 weeks. Start metronidazol early in the afternoon every 8 hours for 3 more doses. Take ciprofloxacin tonight around 6-7 pm every 12 hours and take for 2 more doses. Take vancomycin starting tomorrow morning once a day for 8 days Coding Diagnoses Diverticulitis K57.92 Rhinovirus B34.8 Elevated troponin R79.89
[2024-08-08 11:31] VITALS: BP 132/65; PULSE 70; RESP 16; TEMP 98.2; O2SAT 96
== END 2024-08-08 12:13 | disposition home or self-care (01) | DRG 392 ==
LOC: ED 10:40 → SUATTDRO 17:01 → EDINP 17:01 → 2N 18:22 → 2W 08-03 16:06

== ENCOUNTER 2025-07-09 09:57 | Inpatient (IN) ==
--- NOTE | 2025-07-09 10:44 | Emergency Department Note ---
Impression & Plan Abdominal pain, Acute hyponatremia, Weakness, GINA (acute kidney injury) ED Provider Note NAME: LULÚ LMIA AGE: 79 SEX: F : 1945 ARRIVES VIA: Walk-In INFORMANT: Patient ED PROVIDER(S): Jr Spears DO CHIEF COMPLAINT: Weakness, lightheadedness, abdominal pain HPI: Patient is a 79-year-old female with a past medical history of sepsis, C. difficile, GINA, pancreatitis, hyperlipidemia and hypertension who presents to the ER for lightheadedness. Family present at bedside and provides additional history. They note that she cannot stand up with nearly passing out. She has not been eating and drinking due to diverticulitis. She been treated with this on Cipro for about a week. Denies any vomiting. No dysuria, urgency or frequency. No headache or change in vision. The lightheadedness is much better when she stays still. Denies any focal weakness and or numbness in the arms or legs. ADDITIONAL HISTORY OBTAINED: Per HPI Chronic Medical/Social Conditions Affecting Care: Per HPI PAST MEDICAL HISTORY:See Below PAST SURGICAL HISTORY:See Below FAMILY HISTORY:See Below SOCIAL HISTORY:See Below HOME MEDICATIONS:See Below ALLERGIES:See Below VITALS:See Below PHYSICAL EXAMINATION: GENERAL: Sitting up in bed, alert, well appearing, well nourished, no distress, non-toxic EYE EXAM: normal conjunctiva. PERRL and EOM's grossly intact. OROPHARYNX: no exudate, no erythema, lips, buccal mucosa, and tongue normal and mucous membranes are moist NECK: supple, no nuchal rigidity, no adenopathy, non-tender LUNGS: Clear to auscultation. Normal chest wall mechanics HEART: no murmurs, S1 normal and S2 normal ABDOMEN: abdomen soft, non-tender, normo-active bowel sounds, no masses, no rebound or guarding. UPPER EXTREMITIES: upper extremities are grossly normal. LOWER EXTREMITIES: No pitting edema. NEURO EXAM: Normal sensorium, cranial nerves II-XII grossly intact, normal speech, no gross weakness of arms, no gross weakness of legs. MEDICAL DECISION MAKING: Patient is a an 79-year-old female with a past medical history of colitis and sepsis who presents ER for the above-stated complaint. IV was established and blood work is obtained. Labs show no significant leukocytosis or anemia. BMP with hyponatremia at 127. Creatinine 1.6. LFTs bilirubin was unremarkable. Lipase mildly elevated at 122. CT head and abdomen pelvis showed no acute pathology. Patient was given IV fluids. She felt very weak and rundown. EKG was unremarkable. Patient was given IV Zofran. Updated at bedside and admitted for further workup of the weakness and hyponatremia. Consults/Care Managements Discussions: Per [facility] Triage Nursing notes reviewed. Limited review of prior medical records performed Vital Signs: reviewed and remarkable for no significant abnormalities Differential diagnosis: Infection, dehydration, metabolic abnormality, hypo/hyperglycemia, electrolyte disturbance, anemia, hypoxia, cardiac sources, intracerebral event, toxicologic, neurologic, as well as other pathologies. ER treatment provided: See below Diagnostics interpreted by me include EKG and cardiac monitoring as listed below: -Cardiac Monitoring: An order was placed for continuous cardiac monitoring. The monitor shows a rate of 66 with sinus rhythm. -ECG: Sinus rhythm rate of 52 Normal axis No PVCs T wave version in the high lateral leads QTc 438 -Laboratory studies:Interpreted by me as stated above in MDM and shown below. Imaging studies: Xrays: As interpreted by me:none CTs show: CT of the head per my pleurae interpretation showed no obvious large bleed CT of the head and abdomen pelvis was unremarkable per radiology Procedures: None Critical Care: None Past Med/Surg History Problem List (Updated 07/09/25 @ 16:38 by Jr Spears DO) GINA (acute kidney injury) (Acute) Weakness (Acute) Acute hyponatremia (Acute) Abdominal pain (Acute) Thoracic radiculitis Scleroderma Hx of cardiac murmur has had since age 3, "it comes and goes"; f/u dr. augustine, s Lumbar radiculitis Rhinovirus Elevated troponin Abdominal pain, acute, left lower quadrant (Acute) Diverticulitis (Acute) Chronic constipation History of diverticulitis Lyme disease Acute kidney injury superimposed on chronic kidney disease Abdominal pain, lower (Acute) Colitis (Acute) Sepsis Colitis (Acute) C. difficile colitis Proctocolitis Diarrhea GINA (acute kidney injury) (Acute) Hypokalemia (Acute) Diverticulitis (Acute) Cholecystitis Weight gain Nausea and vomiting Hypomagnesemia Hypokalemia Gallstones Dilated pancreatic duct Back pain (Acute) Pancreatitis (Acute) Acute pancreatitis Abdominal pain (Acute) Abnormal weight loss Odynophagia Encounter for pre-operative examination Acute diverticulitis Slow transit constipation Peripheral vascular disease Hyperlipidemia Fibromyalgia Depression Scleroderma Hyponatremia (Chronic) Vitamin D deficiency (Chronic) Hypertension Chronic kidney disease, stage III (moderate) (Chronic) 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"; F/U DR PATEL Medical History Chronic back pain Poor intravenous access veins roll and are very small, also pt has been dehyrated at times due to the Cdiff, veins have been very difficult to find since Cdiff infection > U.S machine had to be used in recent past White coat syndrome with diagnosis of hypertension HTN (hypertension) Hx of Lyme disease unsure when it happened, discovered during hospital stay Hx of pancreatitis hospitalized at [facility] Jul 2023, had sepsis with it Diverticular disease C. difficile colitis dx 02/28/24, [facility] for this, still some loose stool but much improved since start of Vanco Chronic kidney disease, stage III (moderate) follows with Dr. Patel GERD without esophagitis Hx of cardiac murmur has had since age 3, "it comes and goes"; f/u dr. augustine, s Scleroderma Peripheral vascular disease Depression Fibromyalgia GERD (gastroesophageal reflux disease) Spinal stenosis Anxiety "has white coat syndrome and blood pressure can get really high" Secondary hyperparathyroidism Positive NAREN (antinuclear antibody) Hyperkalemia Hypercalcemia Anemia Surgical History S/P epidural steroid injection Hx of right cataract extraction History of cholecystectomy History of left cataract extraction History of dilatation and curettage History of esophagogastroduodenoscopy (EGD) History of breast biopsy RIGHT BENIGN History of hysterectomy History of appendectomy History of tonsillectomy H/O colonoscopy Family History Other No known health problems Social History Smoking Status: Never smoker Second Hand Exposure: No; Do You Dip or Chew Tobacco: No; Hx Alcohol Use: No Hx Substance Use: No Preferred Language: French Communication Ability: Effective Visual Impairment: No Limitations Hearing Ability: Normal 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 Beliefs That Will Affect Care: None marital status: Current Living Situation: Spouse current occupational status: retired Feels Safe at Home: Yes Assistive Devices: Brace/Splint/Immobilizer, Cane and Walker Allergies Allergies Allergy/AdvReac Type Severity Reaction Status Date / Time atropine [From ] Allergy Intermediate Hives Verified 06/15/25 08:04 cimetidine [From Tagamet] Allergy Intermediate Hives Verified 06/15/25 08:04 hyoscyamine [From ] Allergy Intermediate Hives Verified 06/15/25 08:04 Iodinated Contrast Media Allergy Intermediate Hives Verified 06/15/25 08:04 [Iodinated Contrast- Oral and IV Dye] nitrofurantoin Allergy Intermediate Rash Verified 06/15/25 08:04 [From Macrobid] phenobarbital [From ] Allergy Intermediate Hives Verified 06/15/25 08:04 regadenoson Allergy Intermediate loss of Verified 06/15/25 08:04 vision, low Blood pressure scopolamine [From ] Allergy Intermediate Hives Verified 06/15/25 08:04 ketoprofen [From Orudis] Allergy Mild Rash Verified 06/15/25 08:04 diltiazem AdvReac Intermediate Hallucinati Verified 06/15/25 08:04 ng doxepin AdvReac Intermediate Hallucinati Verified 06/15/25 08:04 ng doxycycline AdvReac Intermediate Heartburn Verified 06/15/25 08:04 duloxetine [From Cymbalta] AdvReac Intermediate Swelling Verified 06/15/25 08:04 hydrocodone AdvReac Intermediate Dizziness Verified 06/15/25 08:04 lisinopril [From Zestril] AdvReac Intermediate Swelling Verified 06/15/25 08:04 pantoprazole [From Protonix] AdvReac Intermediate Dizziness Verified 06/15/25 08:04 Home Meds Home Medications Medication Instructions Recorded Confirmed acetaminophen 500 mg tablet 1,000 mg PO Q6H PRN Back Pain 04/27/21 07/09/25 (Tylenol Extra Strength) losartan 100 mg tablet 100 mg PO QAM PRN BP 05/13/23 07/09/25 amlodipine 10 mg tablet 5 mg PO QAM 08/05/23 07/09/25 carvedilol 12.5 mg tablet 12.5 mg PO BID 04/19/25 07/09/25 ergocalciferol (vitamin D2) 1,250 1,250 mcg PO DAILY 04/19/25 07/09/25 mcg (50,000 unit) capsule (Vitamin D2) famotidine 20 mg tablet 20 mg PO BID 04/19/25 07/09/25 potassium gluconate 500 mg (83 mg) 500 mg PO DAILY 04/19/25 07/09/25 tablet furosemide 20 mg tablet 20 mg PO DAILY PRN WATER RETENTION 07/09/25 07/09/25 Previous Rx's Medication Instructions Recorded gabapentin 300 mg capsule 300 mg PO HS #90 caps 06/10/25 Results & Data (ED) Vital Signs Vital Signs - 24 hr 07/09/25 09:58 07/09/25 10:20 07/09/25 10:59 Temperature 36.8 C Temperature Source Temporal Artery Scan Pulse Rate 70 55 L Pulse Rate [Left Finger] 57 L Respiratory Rate 20 16 20 Respiratory Effort / Characteristics Non-Labored Spontaneous Non-Labored Respiratory Depth Normal Normal Respiratory Pattern Regular Blood Pressure 128/71 Blood Pressure [Right Arm] 172/74 H Blood Pressure Mean 90 Blood Pressure Mean [Right Arm] 106 Blood Pressure Position Sitting Pulse Oximetry 97 96 97 Oxygen Delivery Method Room Air Room Air Room Air Sepsis Recent Fever Within 48 Hours No Sepsis New/Unexplained Change in Mental Status N/A Sepsis Action Taken by Nursing No Action Required 07/09/25 11:52 07/09/25 12:00 07/09/25 13:00 Temperature Temperature Source Pulse Rate 50 L Pulse Rate [Left Finger] 58 L 60 Respiratory Rate 12 15 Respiratory Effort / Characteristics Non-Labored Respiratory Depth Normal Normal Respiratory Pattern Blood Pressure Blood Pressure [Right Arm] 110/61 138/61 Blood Pressure Mean Blood Pressure Mean [Right Arm] 77 86 Blood Pressure Position Pulse Oximetry 98 100 Oxygen Delivery Method Sepsis Recent Fever Within 48 Hours Sepsis New/Unexplained Change in Mental Status Sepsis Action Taken by Nursing 07/09/25 16:02 Temperature Temperature Source Pulse Rate 55 L Pulse Rate [Left Finger] Respiratory Rate Respiratory Effort / Characteristics Respiratory Depth Respiratory Pattern Blood Pressure Blood Pressure [Right Arm] Blood Pressure Mean Blood Pressure Mean [Right Arm] Blood Pressure Position Pulse Oximetry Oxygen Delivery Method Sepsis Recent Fever Within 48 Hours Sepsis New/Unexplained Change in Mental Status Sepsis Action Taken by Nursing Laboratory Data 07/09/25 11:24 07/09/25 11:24 Lab Results 07/09/25 Range/Units 11:24 WBC 8.24 (4.8-10.8) K/ul RBC 4.81 (4.20-5.40) M/uL Hgb 13.9 (12.0-16.0) g/dL Hct 40.0 (37.0-47.0) % MCV 83.2 (80.0-100.0) fL MCH 28.9 (25.0-34.0) pg MCHC 34.8 (32.0-36.0) g/dL RDW Std Deviation 40.9 (36.4-46.3) fL RDW Coeff of Jordi 13.4 (11.5-14.5) % Plt Count 237 (130-400) K/uL MPV 10.4 (9.4-12.4) fL Immature Gran % (Auto) 0.4 % Neut % (Auto) 72.7 % Lymph % (Auto) 17.8 % [place] % (Auto) 7.9 % Eos % (Auto) 0.6 % Baso % (Auto) 0.6 % Neut # (Auto) 5.99 (1.40-6.50) K/uL Lymph # (Auto) 1.47 (1.20-3.40) K/uL [place] # (Auto) 0.65 H (0.11-0.59) K/uL Eos # (Auto) 0.05 (0.00-0.50) K/uL Baso # (Auto) 0.05 (0.00-0.20) K/uL Immature Gran # (Auto) 0.03 (0.01-0.20) K/uL Sodium 127 L (136-145) mmol/L Potassium 4.3 (3.5-5.1) mmol/L Chloride 94 L (98-107) mmol/L Carbon Dioxide 25 (21-32) mmol/L Anion Gap 8 (3-11) BUN 25 H (6-23) mg/dl Creatinine 1.69 H (0.6-1.2) mg/dl Est Cr Clr Drug Dosing Not Reportable eGFR 30.15 BUN/Creatinine Ratio 14.8 (10-20) Glucose 104 H (70-99(Fasting)) mg/dl Calcium 9.8 (8.6-10.3) mg/dl Total Bilirubin 0.7 (0.2-1.0) mg/dl AST 19 (13-39) U/L ALT 13 (7-52) U/L Alkaline Phosphatase 66 (34-104) U/L Total Protein 7.6 (6.0-8.3) gm/dl Albumin 4.4 (3.4-5.0) gm/dl Globulin 3.2 (2.5-4.0) gm/dl Albumin/Globulin Ratio 1.4 (0.9-2) Lipase 122 H (11-82) U/L Administered Medications Discontinued Medications Sodium Chloride (Nss) 1,000 mls @ 999 mls/hr IV .Q1H1M ONE Stop: 07/09/25 11:50 Last Admin: 07/09/25 12:01 Dose: 999 mls/hr Documented By: louisa Ondansetron HCl (Ondansetron Inj 2 Mg/Ml 2 Ml Vial) 4 mg IV NOW STA Stop: 07/09/25 10:51 Last Admin: 07/09/25 15:38 Dose: Not Given Documented By: MR Imaging Data Radiologist's Impression: Abdomen/Pelvis CT 07/09/25 10:[address] WITHOUT CONTRAST CT DOSE: 1232.99 mGy.cm HISTORY: Acute lower abdominal pain ? diverticulitis TECHNIQUE: Multiaxial CT images of the abdomen and pelvis were performed without contrast. A dose lowering technique was utilized adhering to the principles of ALARA. COMPARISON STUDY: 01/04/2025 FINDINGS: Lung bases are generally clear. No pneumatosis or pneumoperitoneum identified. The unenhanced spleen, pancreas and adrenal glands are within normal limits. Unchanged small left hepatic lobe cyst. The liver is otherwise unremarkable. Cholecystectomy. There is a cortical scarring and parenchymal thinning again noted within the right kidney. Probable small cyst of the interpolar lateral aspect right kidney. No urolith or hydronephrosis. Unremarkable urinary bladder. Prior hysterectomy. Atherosclerosis of the aorta and branch vessels. No lymphadenopathy. No bowel obstruction or pneumoperitoneum. Colonic diverticulosis without definite CT evidence of acute diverticulitis. Scattered large bowel air-fluid levels. Decompressed ascending colon with mild wall thickening. Degenerative changes of the spine, pelvis and hips. No acute fracture identified. IMPRESSION: 1. Colonic diverticulosis without acute diverticulitis 2. Scattered air-fluid levels within the large bowel may be physiologic or represent a nonspecific diarrheal illness. 3. Cholecystectomy. ACT 112: Negative or not required by law. The above report was generated using voice recognition software. It may contain grammatical, syntax or spelling errors. Electronically signed by: Devin Rich M.D. 07/09/2025 11:[address] 07/09/25 10:41 CT SCAN OF THE BRAIN WITHOUT IV CONTRAST CLINICAL HISTORY: Hypertension. COMPARISON STUDY: None. TECHNIQUE: Unenhanced axial CT scan of the brain was performed from the vertex to the skull base. A dose lowering technique was utilized adhering to the principles of ALARA. FINDINGS: Brain parenchyma: No acute intracranial hemorrhage, midline shift or mass effect is present. Hale-white matter differentiation is preserved. There are no extra- axial fluid collections. There are no findings to suggest acute dural sinus thrombosis or acute territorial infarct. Ventricles, sulci, cisterns: There is no hydrocephalus. The basal cisterns are patent. Calvarium: Unremarkable. Sinuses and mastoids: The visualized paranasal sinuses are clear. The mastoid air cells are well pneumatized. Orbits: The bony orbits are grossly intact. IMPRESSION: No acute intracranial findings. ACT 112: Negative or not required by law. Electronically signed by: Sam Cardona M.D. 07/09/2025 12:05 PM Discharge Plan Visit Data Chief Complaint: Weakness Stated Complaint: WEAKNESS, LOW BP, DIVERTICULITIS ED Provider: Jr Spears Discharge Problem: Abdominal pain, Acute hyponatremia, Weakness, GINA (acute kidney injury) Condition: Serious Forms Stand Alone Forms: My [facility] [place] Prescriptions Prescriptions: No Action carvedilol 12.5 mg tablet 12.5 mg PO BID potassium gluconate 500 mg (83 mg) tablet 500 mg PO DAILY famotidine 20 mg tablet 20 mg PO BID ergocalciferol (vitamin D2) [Vitamin D2] 1,250 mcg (50,000 unit) capsule 1,250 mcg PO DAILY gabapentin 300 mg capsule 300 mg PO HS Qty: 90 1RF acetaminophen [Tylenol Extra Strength] 500 mg Tablet 1,000 mg PO Q6H PRN (Reason: Back Pain) Rx Instructions: 01/04- otc unable to verify losartan 100 mg Tablet 100 mg PO QAM PRN (Reason: BP) amlodipine 10 mg tablet 5 mg PO QAM furosemide 20 mg tablet 20 mg PO DAILY PRN (Reason: WATER RETENTION) Referrals Referrals: Peter Stark [Primary Care Provider] - Discharge Problem: Abdominal pain Qualifiers: Abdominal location: unspecified location Qualified Code(s): R10.9 - Unspecified abdominal pain
[2025-07-09 11:57] LABS: Hematocrit (blood only) 40.0 % (37.0-47.0); Hemoglobin 13.9 g/dL (12.0-16.0); Immature Granulocytes # (auto) 0.03 K/uL (0.01-0.20); Immature Granulocytes % (auto) 0.4 %; Mean Corpuscular Hemoglobin 28.9 pg (25.0-34.0); Mean Corpuscular Volume 83.2 fL (80.0-100.0); Platelet Count 237 K/uL (130-400); RDW Standard Deviation 40.9 fL (36.4-46.3); Red Blood Count 4.81 M/uL (4.20-5.40); White Blood Count 8.24 K/ul (4.8-10.8)
--- NOTE | 2025-07-09 11:57 | CT Scan Report ---
ABDOMEN AND PELVIS CT WITHOUT CONTRAST CT DOSE: 1232.99 mGy.cm HISTORY: Acute lower abdominal pain ? diverticulitis TECHNIQUE: Multiaxial CT images of the abdomen and pelvis were performed without contrast. A dose lo wering technique was utilized adhering to the principles of ALARA. COMPARISON STUDY: 01/04/2025 FINDINGS: Lung bases are generally clear. No pneumatosis or pneumoperitoneum identified. The unenhanc ed spleen, pancreas and adrenal glands are within normal limits. Unchanged small left hepatic lobe cy st. The liver is otherwise unremarkable. Cholecystectomy. There is a cortical scarring and parenchymal thinning again noted within the right kidney. Probable s mall cyst of the interpolar lateral aspect right kidney. No urolith or hydronephrosis. Unremarkable u rinary bladder. Prior hysterectomy. Atherosclerosis of the aorta and branch vessels. No lymphadenopat hy. No bowel obstruction or pneumoperitoneum. Colonic diverticulosis without definite CT evidence of acute diverticulitis. Scattered large bowel air-fluid levels. Decompressed ascending colon with mild wall thickening. Degenerative changes of the spine, pelvis and hips. No acute fracture identified. IMPRESSION: 1. Colonic diverticulosis without acute diverticulitis 2. Scattered air-fluid levels within the large bowel may be physiologic or represent a nonspecific di arrheal illness. 3. Cholecystectomy. ACT 112: Negative or not required by law. The above report was generated using voice recognition software. It may contain grammatical, syntax o r spelling errors. Electronically signed by: Devin Rich M.D. 07/09/2025 11:55 AM
[2025-07-09] MEDS: SODIUM CHLORIDE 0.9% 1,000 ML IV ONE (12:01)
--- NOTE | 2025-07-09 12:07 | CT Scan Report ---
CT SCAN OF THE BRAIN WITHOUT IV CONTRAST CLINICAL HISTORY: Hypertension. COMPARISON STUDY: None. TECHNIQUE: Unenhanced axial CT scan of the brain was performed from the vertex to the skull base. A dose lowering technique was utilized adhering to the principles of ALARA. FINDINGS: Brain parenchyma: No acute intracranial hemorrhage, midline shift or mass effect is present. Hale-whi te matter differentiation is preserved. There are no extra-axial fluid collections. There are no find ings to suggest acute dural sinus thrombosis or acute territorial infarct. Ventricles, sulci, cisterns: There is no hydrocephalus. The basal cisterns are patent. Calvarium: Unremarkable. Sinuses and mastoids: The visualized paranasal sinuses are clear. The mastoid air cells are well pneu matized. Orbits: The bony orbits are grossly intact. IMPRESSION: No acute intracranial findings. ACT 112: Negative or not required by law. Electronically signed by: Sam Cardona M.D. 07/09/2025 12:05 PM
[2025-07-09 12:13] LABS: Alanine Aminotransferase 13 U/L (7-52); Albumin Globulin Ratio 1.4 (0.9-2); Albumin Level 4.4 gm/dl (3.4-5.0); Alkaline Phosphatase 66 U/L (34-104); Anion Gap 8 (3-11); Bilirubin,Total 0.7 mg/dl (0.2-1.0); Blood Urea Nitrogen 25 mg/dl (6-23); Calcium 9.8 mg/dl (8.6-10.3); Carbon Dioxide 25 mmol/L (21-32); Chloride 94 mmol/L (98-107); Globulin 3.2 gm/dl (2.5-4.0); Glucose 104 mg/dl (70-99(Fasting)); Lipase 122 U/L (11-82); Potassium 4.3 mmol/L (3.5-5.1); Sodium 127 mmol/L (136-145); Total Protein 7.6 gm/dl (6.0-8.3)
[2025-07-09] MEDS ORDERED: ACETAMINOPHEN 325 MG TAB PO PRN (14:40)
[2025-07-09] MEDS ORDERED: ALUMINUM/MAGNESIUM SUSP 30 ML UDC PO PRN (14:40)
[2025-07-09] MEDS ORDERED: MAGNESIUM HYDROXIDE SUSP 30 ML UDC PO PRN (14:40)
[2025-07-09] MEDS ORDERED: MELATONIN 3 MG TAB PO PRN (14:40)
[2025-07-09] MEDS ORDERED: POLYETHYLENE (MIRALAX) 17 GM PACK PO PRN (14:40)
[2025-07-09] MEDS ORDERED: ONDANSETRON INJ 2 MG/ML 2 ML VIAL IV PRN (14:40)
[2025-07-09] MEDS: ONDANSETRON INJ 2 MG/ML 2 ML VIAL IV STA (15:38)
[2025-07-09] MEDS: LACTATED RINGER'S 1,000 ML IV ONE (18:41)
--- NOTE | 2025-07-09 18:43 | History & Physical Report ---
Date of Service July 09, 2025 Assessment & Plan (1) Weakness: (2) Acute hyponatremia: (3) GINA (acute kidney injury): (4) Elevated lipase: (5) Hypertension: Iker Yeh is an 79-year-old with recurrent history of diverticulitis, C. difficile colitis, chronic constipation/dyssynergic defecation, CKD stage III, hypertension, GERD, anxiety, fibromyalgia, depression, GERD, hyperlipidemia, and hypertension that presents to [facility] with complaints of dizziness and weakness over the course of the past week. She recently finished a course of oral Cipro due to Recently diagnosed diverticulitis in the outpatient setting that was uncomplicated as her pain was tolerable and she was able to tolerate a clear liquid, low residue diet at home. Labs in ED with no leukocytosis, Na 127 (received 1 liter of NSS in ED), Cr 1.69, Lipase 122. CTAP w/o contrast: colonic diverticulosis without acute diverticulitis, scattered air-fluid levels within large bowel, s/p cholecystectomy. CT of head with no acute intracranial findings. ##Weakness/dizziness med/tele orthostatic VS QS on home amlodipine, coreg, lasix, losartan-->hold on admission and allow permissive HTN hyponatremic at 127 as possible causative factor s/p 1 liter NSS in ED LR 125ml/hr ##GINA Cr 1.69-->probable pre-renal hold ARB LR at 125/hrX1 ##hyponatremia NA 127 s/p 1 liter NSS in ED LR at 125ml/hr in probably setting of hypovolemic hyponatremia trend ##HTN hold home antihypertensives to evaluate BP and orthostatic recordings ##lumbar radiculitis follows outpatient with [facility] s/p L3-L4 interlaminar epidural steroid injection 06/15/25 hold gabapentin as possible cause of dizziness->need to clarify dosing 100mg vs 300mg? tylenol as needed for pain ##Elevated lipase lipase 122 without clinical signs of pancreatitis CTAP without contrast-->pancreas within normal limits repeat lipase in am DVT prophylaxis: low risk, SCDs Diet: Low fiber, low fat Disposition: admit med/tele CODE STATUS: FULL CODE Daughter Erica at bedside at time of admission and updated Admission and Anticipated Discharge Date Admission Date: July 09, 2025 History of Present Illness Chief Complaint: Dizziness, weakness Primary Care Provider: Peter Yeh is an 79-year-old with recurrent history of diverticulitis, C. difficile colitis, chronic constipation/dyssynergic defecation, CKD stage III, hypertension, GERD, anxiety, fibromyalgia, depression, GERD, hyperlipidemia, and hypertension that presents to [facility] with complaints of dizziness and weakness over the course of the past week. She recently finished a course of oral Cipro due to recently diagnosed diverticulitis in the outpatient setting that was uncomplicated as her pain was tolerable and she was able to tolerate a clear liquid, low residue diet at home. Reports she believes that her oral intake has been adequate however her food intake has not been up to par. She denies nausea, vomiting or diarrhea. Her only specific complaint with her bout of diverticulitis was vague abdominal pain that has now fully resolved. Her main complaint today at time of admission is dizziness that is primarily provoked when she goes from a sitting to standing position. Reports that she was in the emergency department at [facility] a couple weeks ago due to hypertensive urgency and reported blood pressure recordings of 230s over 130s. In the emergency department they were concerned that she was possibly having a stroke as she did have some noted paresthesias to her face in conjunction with an elevated blood pressure. They treated her with oral medication and her blood pressure down trended and she was able to be successfully discharged with close follow-up with PCP in [place]. Her PCP changed some of her oral antihypertensives regimen. PCP had increased her HCTZ and spironolactone at that time then she followed up last week as she was dizzy and had a low BP. PCP then d/c'ed her HCTZ and spironolactone. States at times when she sits up and checks her BP it drops as low as 70s systolic. When she is lying at rest she is without dizziness or vertiginous symptoms. She denies pre- syncope or syncope. She does not use tobacco and does not drink ETOH. After full discussion with patient she wishes to be a full code. Allergies Allergy/AdvReac Type Severity Reaction Status Date / Time atropine [From ] Allergy Intermediate Hives Verified 06/15/25 08:04 cimetidine [From Tagamet] Allergy Intermediate Hives Verified 06/15/25 08:04 hyoscyamine [From ] Allergy Intermediate Hives Verified 06/15/25 08:04 Iodinated Contrast Media Allergy Intermediate Hives Verified 06/15/25 08:04 [Iodinated Contrast- Oral and IV Dye] nitrofurantoin Allergy Intermediate Rash Verified 06/15/25 08:04 [From Macrobid] phenobarbital [From ] Allergy Intermediate Hives Verified 06/15/25 08:04 regadenoson Allergy Intermediate loss of Verified 06/15/25 08:04 vision, low Blood pressure scopolamine [From ] Allergy Intermediate Hives Verified 06/15/25 08:04 ketoprofen [From Orudis] Allergy Mild Rash Verified 06/15/25 08:04 diltiazem AdvReac Intermediate Hallucinati Verified 06/15/25 08:04 ng doxepin AdvReac Intermediate Hallucinati Verified 06/15/25 08:04 ng doxycycline AdvReac Intermediate Heartburn Verified 06/15/25 08:04 duloxetine [From Cymbalta] AdvReac Intermediate Swelling Verified 06/15/25 08:04 hydrocodone AdvReac Intermediate Dizziness Verified 06/15/25 08:04 lisinopril [From Zestril] AdvReac Intermediate Swelling Verified 06/15/25 08:04 pantoprazole [From Protonix] AdvReac Intermediate Dizziness Verified 06/15/25 08:04 Home Medications Medication Instructions Recorded Confirmed Type acetaminophen 500 mg tablet 1,000 mg PO Q6H PRN Back Pain 04/27/21 07/09/25 History (Tylenol Extra Strength) losartan 100 mg tablet 100 mg PO QAM PRN BP 05/13/23 07/09/25 History amlodipine 10 mg tablet 5 mg PO QAM 08/05/23 07/09/25 History carvedilol 12.5 mg tablet 12.5 mg PO BID 04/19/25 07/09/25 History ergocalciferol (vitamin D2) 1,250 1,250 mcg PO DAILY 04/19/25 07/09/25 History mcg (50,000 unit) capsule (Vitamin D2) famotidine 20 mg tablet 20 mg PO BID 04/19/25 07/09/25 History potassium gluconate 500 mg (83 mg) 500 mg PO DAILY 04/19/25 07/09/25 History tablet gabapentin 300 mg capsule 300 mg PO HS #90 caps 06/10/25 07/09/25 Rx furosemide 20 mg tablet 20 mg PO DAILY PRN WATER RETENTION 07/09/25 07/09/25 History Past Med/Surg History Problem List (Updated 07/09/25 @ 19:11 by FILIPPO Pyle) Elevated lipase GINA (acute kidney injury) (Acute) Weakness (Acute) Acute hyponatremia (Acute) Abdominal pain (Acute) Thoracic radiculitis Scleroderma Hx of cardiac murmur has had since age 3, "it comes and goes"; f/u dr. augustine brenda Lumbar radiculitis Rhinovirus Elevated troponin Abdominal pain, acute, left lower quadrant (Acute) Diverticulitis (Acute) Chronic constipation History of diverticulitis Lyme disease Acute kidney injury superimposed on chronic kidney disease Abdominal pain, lower (Acute) Colitis (Acute) Sepsis Colitis (Acute) C. difficile colitis Proctocolitis Diarrhea GINA (acute kidney injury) (Acute) Hypokalemia (Acute) Diverticulitis (Acute) Cholecystitis Weight gain Nausea and vomiting Hypomagnesemia Hypokalemia Gallstones Dilated pancreatic duct Back pain (Acute) Pancreatitis (Acute) Acute pancreatitis Abdominal pain (Acute) Abnormal weight loss Odynophagia Encounter for pre-operative examination Acute diverticulitis Slow transit constipation Peripheral vascular disease Hyperlipidemia Fibromyalgia Depression Scleroderma Hyponatremia (Chronic) Vitamin D deficiency (Chronic) Hypertension Chronic kidney disease, stage III (moderate) (Chronic) 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"; F/U DR PATEL Medical History Chronic back pain Poor intravenous access veins roll and are very small, also pt has been dehyrated at times due to the Cdiff, veins have been very difficult to find since Cdiff infection > U.S machine had to be used in recent past White coat syndrome with diagnosis of hypertension HTN (hypertension) Hx of Lyme disease unsure when it happened, discovered during hospital stay Hx of pancreatitis hospitalized at [place] Jul 2023, had sepsis with it Diverticular disease C. difficile colitis dx 02/28/24, [facility] for this, still some loose stool but much improved since start of Vanco Chronic kidney disease, stage III (moderate) follows with Dr. Patel GERD without esophagitis Hx of cardiac murmur has had since age 3, "it comes and goes"; f/u dr[facility] augustine [facility] Scleroderma Peripheral vascular disease Depression Fibromyalgia GERD (gastroesophageal reflux disease) Spinal stenosis Anxiety "has white coat syndrome and blood pressure can get really high" Secondary hyperparathyroidism Positive NAREN (antinuclear antibody) Hyperkalemia Hypercalcemia Anemia Surgical History S/P epidural steroid injection Hx of right cataract extraction History of cholecystectomy History of left cataract extraction History of dilatation and curettage History of esophagogastroduodenoscopy (EGD) History of breast biopsy RIGHT BENIGN History of hysterectomy History of appendectomy History of tonsillectomy H/O colonoscopy Family History Other No known health problems Social History Smoking Status: Never smoker Second Hand Exposure: No; Do You Dip or Chew Tobacco: No; Hx Alcohol Use: No Hx Substance Use: No Preferred Language: Romanian Communication Ability: Effective Visual Impairment: No Limitations Hearing Ability: Normal [place] Required: No Beliefs That Will Affect Care: None marital status: Current Living Situation: Spouse current occupational status: retired Other Information That Helps Us Care for You: No Feels Safe at Home: Yes Safety Concerns: Feels Safe At This Time Assistive Devices: Cane and Walker Assistive Devices Comment: cane is with patient in room Review of Systems Review of Systems: All systems reviewed & are unremarkable except as noted in Subjective Physical Exam Physical Exam: GENERAL APPEARANCE: A&O. Sitting comfortably on stretcher. NAD. SKIN: Normal color without rashes or lesions. Normal turgor. HEENT: Head AT/NC. Buccal mucosa is moist and pink. NECK: No jugular venous distention. No thyroid enlargement. There is no lymphadenopathy. HEART: RRR without m/g/r LUNGS: Normal inspiratory effort. CTA without w/r/r. ABDOMEN: No guarding or rigidity. Normoactive BS in all four quadrants. Abdomen soft and NT. MSK: No bony gross/deformities throughout. ROM intact. EXTREMITIES: No edema, No peripheral cyanosis. Neuro: CN 2-12 grossly intact. No focal neuro deficits PSYCHIATRIC: Normal affect. Eye contact is good. Speech is normal rate and content. Responses are appropriate. Results & Data Results & Data Vital Signs (Past 12 Hours) Vital Signs Temp Pulse Pulse Resp BP BP Pulse Ox 07/09/25 16:02 55 L 07/09/25 15:00 56 L 15 120/67 98 07/09/25 13:00 60 15 138/61 100 07/09/25 12:00 58 L 12 110/61 98 07/09/25 11:52 50 L 07/09/25 10:59 55 L 20 97 07/09/25 10:20 57 L 16 172/74 H 96 07/09/25 09:58 36.8 C 70 20 128/71 97 O2 Del Method 07/09/25 16:02 07/09/25 15:00 07/09/25 13:00 07/09/25 12:00 07/09/25 11:52 07/09/25 10:59 Room Air 07/09/25 10:20 Room Air 07/09/25 09:58 Room Air Laboratory Results Labs reviewed: CBC, CMP, lipase Supervising Physician Co-Signing Physician Notes I have reviewed vital signs, chart notes, labs and imaging. I have also discussed the management of the patient with the KALEB and I agree with the exam findings documented in the history and physical examination and the documented assessment and plan unless otherwise stated below. PG Care Time/CCT Total # of Minutes Spent Total Time Spent with Patient: Total time spent is greater than 50% in coordination of care (as documented) at patient's floor/unit and/or counseling patient: Coding Level of Care Code 36163 INT INP/OBS CARE 2/55MIN Diagnoses Weakness R53.1 Acute hyponatremia E87.1 GINA (acute kidney injury) N17.9 Elevated lipase R74.8 Hypertension I10
[2025-07-10 06:40] LABS: Appearance Urine Clear (Clear); Glucose Urine UA Negative (Negative)
[2025-07-10 06:56] LABS: Hematocrit (blood only) 38.0 % (37.0-47.0); Hemoglobin 12.8 g/dL (12.0-16.0); Immature Granulocytes # (auto) 0.01 K/uL (0.01-0.20); Immature Granulocytes % (auto) 0.2 %; Mean Corpuscular Hemoglobin 28.4 pg (25.0-34.0); Mean Corpuscular Volume 84.3 fL (80.0-100.0); Platelet Count 175 K/uL (130-400); RDW Standard Deviation 42.2 fL (36.4-46.3); Red Blood Count 4.51 M/uL (4.20-5.40); White Blood Count 5.41 K/ul (4.8-10.8)
[2025-07-10 07:41] LABS: Anion Gap 9.0 (3-11); Blood Urea Nitrogen 20.0 mg/dl (6-23); Calcium 8.9 mg/dl (8.6-10.3); Carbon Dioxide 22.0 mmol/L (21-32); Chloride 104.0 mmol/L (98-107); Creatinine Clr Calc Pharmacy 29.5 ml/min; Glucose 76.0 mg/dl (70-99(Fasting)); Lipase 103.0 U/L (11-82); Potassium 4.1 mmol/L (3.5-5.1); Sodium 135.0 mmol/L (136-145)
[2025-07-10] MEDS: LOSARTAN POTASSIUM 50 MG TAB PO SCH (09:02)
[2025-07-10] MEDS: CYANOCOBALAMIN 1000 MCG/ML VIAL IM SCH (15:29)
--- NOTE | 2025-07-10 17:38 | Hospitalist Progress Note ---
Date of Service July 10, 2025 Assessment & Plan (1) Weakness: (2) Acute hyponatremia: (3) GINA (acute kidney injury): (4) Elevated lipase: (5) Hypertension: Plan 79-year-old woman with hypertension who came in with episodes of lightheadedness/dizziness especially orthostatic and labile blood pressure sometimes severely elevated. she had a recent episode of diverticulitis which was treated with ciprofloxacin and resolved. she also reports an episode about a month ago when she had transient left facial numbness for about an hour she was evaluated at a small hospital and was treated for hypertensive emergency with systolic as high as 230 but it does not sound like she had a thorough stroke evaluation. # Symptomatic orthostatic hypotension - Discontinued carvedilol. - Reviewed medication list, no other potential causes apart from antihypertensives. - Reintroduced amlodipine and losartan at previous doses, monitor response. as needed oral clonidine - Physical therapy scheduled. - May tolerate suprasystolic hypertension to maintain asymptomatic status, focus on sitting BP. - Consider alternatives to beta blockers if additional agent needed: Increase amlodipine dose or add clonidine or hydralazine. - Checked a B12 and vitamin D which is associated with orthostatic hypotension and she is deficient and both of those # recent TIA- like episode associated with severe hypertension - we will start a TIA workup, she likely will benefit from an antiplatelet. Not noted to have atrial fibrillation currently on monitor # Vitamin B12 deficiency - Low B12 level a year ago, not addressed. - Vitamin B12 deficiency can cause orthostatic hypotension. - Ordered B12, B1, and vitamin D levels this morning. 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 Kapoor - schedule Follow-up with Emelia who will be helpful in managing resistant hypertension. - creatinine was mildly elevated to 1.69 day of admission, has improved to 1.29 which is within her baseline range # hypovolemic hyponatremia present on admission treated with IV fluids and resolved #lumbar radiculitis follows outpatient with [facility] s/p L3-L4 interlaminar epidural steroid injection 06/15/25 hold gabapentin as possible cause of dizziness->need to clarify dosing 100mg vs 300mg? tylenol as needed for pain #Elevated lipase - mildly elevated lipase persists however it is not in the pancreatitis range she is not having any signs or symptoms of pancreatitis and pancreas appeared normal on CT abdomen - not clinically significant # DVT Prophylaxis: enoxaparin Medical Complexity: Medical decision making was complex, high risk for clinical deterioration morbidity, or mortality for this encounter. Admission and Anticipated Discharge Date Admission Date: July 09, 2025 Subjective 79-year-old woman admitted with orthostatic hypotension causing lightheadedness and weakness, and labile hypertension. Overnight blood pressures ranged from 146-166/67-86. Supine BP this morning was 190/72 before medications. Orthostatic BP dropped from 190 supine to 150s sitting, then another 10 points standing, associated with lightheadedness. Heart rates 50-55. Symptoms ongoing for some time. Started carvedilol 2 months ago, previously on metoprolol. A month ago, had severe hypertension episode with BP 210 at home, associated with left lower facial numbness. BP reached 230, taken to ED at [facility]. Stroke considered but symptoms resolved and BP improved. Facial numbness lasted about an hour, no other neurological symptoms. Low vitamin D and B12 a year ago, took high-dose vitamin D3 but stopped, never took B12 supplement. she feels about the same today she did get lightheaded when she stood up at the edge of the bed. She reports that she has never had a stroke or any other strokelike episodes other than the left facial numbness described above Physical Exam Physical Exam: General Appearance: Normal. Vital signs: Reviewed past 24h vital signs in EMR, unremarkable. HEENT: EOMI. Respiratory: Lungs clear to auscultation bilaterally, no rhonchi, rales, or wheezes. Cardiovascular: Regular heart with systolic murmur. Gastrointestinal: Abdomen soft, nontender, nondistended. Back, Musculoskeletal: Moves all extremities equally. Extremities: Warm, well perfused, no peripheral edema. Skin: Darkening in sock/ankle area bilaterally, overall cohn. No generalized rashes. Neurological: Awake, alert, oriented x4, pleasant. Symmetric face, normal speech, EOMI, moves all extremities equally. Psychiatric: Normal. Results & Data Results & Data Vital Signs (Past 12 Hours) Vital Signs Temp Pulse Pulse Resp BP Pulse Ox O2 Del Method 07/10/25 15:47 36.6 C 57 L 17 138/66 99 Room Air 07/10/25 13:07 68 07/10/25 11:37 36.3 C L 60 18 108/59 L 100 Room Air 07/10/25 07:53 36.4 C L 57 L 18 190/72 H 99 Room Air 07/10/25 05:46 62 Laboratory Results - Labs: - Sodium (07/09/2025): 135 - Potassium (07/09/2025): 4.1 - Creatinine (07/09/2025): 1.29 - White blood count (07/09/2025): 5 vitamin B12 was 178 which was is deficient, she says she has never taken replacement vitamin D is 15 which is deficient, she took replacement for a little while with Dr. Kapoor last winter/spring but stopped PG Care Time/CCT Total # of Minutes Spent Total Time Spent with Patient: Total time spent is greater than 50% in coordination of care (as documented) at patient's floor/unit and/or counseling patient: Coding Level of Care Code 99071 SUB INP/OBS CARE 3/50MIN Diagnoses Weakness R53.1 Acute hyponatremia E87.1 GINA (acute kidney injury) N17.9 Elevated lipase R74.8 Hypertension I10
[2025-07-10] MEDS: ENOXAPARIN INJ 30 MG/0.3 ML SYR SQ SCH (20:19)
[2025-07-11] MEDS: CHOLECALCIFEROL 125 MCG (5,000 UNITS) TAB PO SCH (07:40)
--- NOTE | 2025-07-11 09:00 | Hospitalist Progress Note ---
Date of Service July 11, 2025 Assessment & Plan (1) Weakness: (2) Acute hyponatremia: (3) GINA (acute kidney injury): (4) Elevated lipase: (5) Hypertension: Plan 79-year-old woman with hypertension who came in with episodes of lightheadedness/dizziness especially orthostatic and labile blood pressure sometimes severely elevated. she had a recent episode of diverticulitis which was treated with ciprofloxacin and resolved. she also reports an episode about a month ago when she had transient left facial numbness for about an hour she was evaluated at a small hospital and was treated for hypertensive emergency with systolic as high as 230 but it does not sound like she had a thorough stroke evaluation. #Symptomatic orthostatic hypotension Discontinued carvedilol Reviewed medication list, no other potential causes apart from antihypertensives Reintroduced amlodipine and losartan at previous doses, monitor response. as needed oral clonidine Physical therapy scheduled May tolerate suprasystolic hypertension to maintain asymptomatic status, focus on sitting BP. Consider alternatives to beta blockers if additional agent needed: Increase amlodipine dose or add clonidine or hydralazine. 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 carotid duplex, consider antiplatelet therapy pending results lipid profile #Vitamin B12 deficiency Vitamin B12 deficiency can cause orthostatic hypotension B12 178 treat vitamin B-12 deficiency with 1000 mg IM daily x 7 doses, then weekly IM and eventually transition to oral when replaced #vitamin D deficiency level 15 she had started replacement for this last year with her pile driving nozzleman but did not continue taking it started 125 mcg daily while here in the hospital but ultimately should be 50,000 units weekly #Chronic kidney disease - 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 Kapoor schedule follow-up with Emelia who will be helpful in managing resistant hypertension creatinine was mildly elevated to 1.69 day of admission, has improved to 1.29 which is within her baseline range #hypovolemic hyponatremia present on admission treated with IV fluids and resolved #lumbar radiculitis follows outpatient with [facility] s/p L3-L4 interlaminar epidural steroid injection 06/15/25 hold gabapentin as possible cause of dizziness->need to clarify dosing 100mg vs 300mg? Tylenol as needed for pain #Elevated lipase - mildly elevated lipase persists however it is not in the pancreatitis range she is not having any signs or symptoms of pancreatitis and pancreas appeared normal on CT abdomen not clinically significant DVT prophylaxis: Loveonx SQ Diet: Low fiber, low fat Disposition: admit to med/tele, d/c pending further progress with PT and testing CODE STATUS: Full code Admission and Anticipated Discharge Date Admission Date: July 09, 2025 Subjective Reports her dizziness with standing has improved today. Able to tolerate sitting in chair without any overt dizziness. Blood pressure as been more ideal with less lability and no concerns related to orthostatic changes. Ordered Linzess last evening to aid in BM-did move bowels this am. Review of Systems Review of Systems: All systems reviewed & are unremarkable except as noted in Subjective Physical Exam Physical Exam: GENERAL APPEARANCE: A&O. Sitting comfortably upright eating. NAD. SKIN: Normal color without rashes or lesions. Normal turgor. HEENT: Head AT/NC. Buccal mucosa is moist and pink. NECK: No jugular venous distention. No thyroid enlargement. There is no lymphadenopathy. HEART: RRR without m/g/r LUNGS: Normal inspiratory effort. CTA without w/r/r. ABDOMEN: No guarding or rigidity. Normoactive BS in all four quadrants. Abdomen soft and NT. MSK: No bony gross/deformities throughout. ROM intact. EXTREMITIES: No edema, No peripheral cyanosis. Neuro: CN 2-12 grossly intact. No focal neuro deficits PSYCHIATRIC: Normal affect. Eye contact is good. Speech is normal rate and content. Responses are appropriate. Results & Data Results & Data Vital Signs (Past 12 Hours) Vital Signs Temp Pulse Pulse Resp BP Pulse Ox Pulse Ox 07/11/25 08:02 36.6 C 69 18 169/94 H 96 07/11/25 03:06 36.6 C 57 L 16 155/78 H 98 07/10/25 23:43 36.5 C 58 L 16 124/67 99 07/10/25 22:00 95 07/10/25 21:45 72 O2 Del Method O2 Del Method 07/11/25 08:02 Room Air 07/11/25 03:06 Room Air 07/10/25 23:43 Room Air 07/10/25 22:00 Room Air 07/10/25 21:45 PG Care Time/CCT Total # of Minutes Spent Total Time Spent with Patient: Total time spent is greater than 50% in coordination of care (as documented) at patient's floor/unit and/or counseling patient: Coding Level of Care Code 56561 SUB INP/OBS CARE MIN Diagnoses Weakness R53.1 Acute hyponatremia E87.1 GINA (acute kidney injury) N17.9 Elevated lipase R74.8 Hypertension I10
[2025-07-11 16:26] LABS: Cholesterol 209.0 mg/dl (0-200); HDL Cholesterol 35.0 mg/dl; Triglycerides 179.0 mg/dl (0-150)
--- NOTE | 2025-07-11 22:14 | Ultrasound Report ---
Bilateral carotid Doppler ultrasound Technique: Grayscale and color Doppler ultrasound images of the carotid arteries No comparison available for review Findings: No hemodynamically significant stenosis. Vertebral arteries are patent with antegrade flow bilaterally Impression Unremarkable exam. Electronically signed by Jr Elizabeth 07-11-2025 10:14 PM
[2025-07-12 03:53] VITALS: O2SAT 99
[2025-07-12 07:35] VITALS: BP 136/74; PULSE 52; RESP 18; TEMP 98.1
--- NOTE | 2025-07-12 11:12 | Discharge Summary ---
Discharge Summary Date of Service July 12, 2025 Principal Dx & Hospital Course #1 = Principal Diagnosis (1) Orthostasis: (2) Acute hyponatremia: (3) GINA (acute kidney injury): (4) Hypertension: Plan This patient is an 79-year-old woman with HTN, recurrent diverticulitis, CKD stage III, chronic constipation, GERD, anxiety, fibromyalgia, HLD, vitamin D and vitamin B12 deficiencies, who came in with episodes of lightheadedness/dizziness found to be caused by orthostatic hypotension. #Symptomatic orthostatic hypotension-recently had hypertensive urgency at an outside hospital with facial numbness which resolved with IV Vasotec. Started on spironolactone and HCTZ which were later discontinued by PCP for hypotension. Her carvedilol here was discontinued, orthostasis resolved, and BPs were well- controlled. She remained mildly orthostatic but no longer symptomatic on the day of discharge and was able to ambulate freely in the hallway/independently with physical therapy. -Discontinued carvedilol -Okay to continue home amlodipine and losartan at previous doses -she is B12/Vit D deficient-replete with IM B12 and oral Vitamin D, convert to oral B12 on discharge #? Recent TIA- like episode associated of facial numbness associated with severe hypertension 2 weeks INFORMATION OPERATOR, could just be from hypertension and not a true TIA. Carotid duplex here negative. No atrial fibrillation on the cardiac exercise specialist. Lipid profile with total cholesterol 209, LDL 138. - Discussed starting on antiplatelet but feel this likely was not a true TIA - No statin indicated -Continue good blood pressure control, monitoring for orthostasis #Vitamin B12 deficiency Vitamin B12 deficiency can cause orthostatic hypotension B12 178 which is quite low -Treat vitamin B-12 deficiency with 1000 mg IM daily x 3 doses, then transition to oral B12 1000 mcg daily and follow-up with PCP #vitamin D deficiency-level 15, she had started replacement for this last year with her seafood process worker but did not continue taking it -Started 125 mcg daily while here in the hospital but ultimately should be 50,000 units weekly on discharge # GINA in the setting of chronic kidney disease - CKD 3B-CKD associated with solitary kidney, under care of Dr. Kapoor, creatinine was mildly elevated to 1.69 day of admission, has improved to 1.29 which is within her baseline range. She was recently on HCTZ and spironolactone which have been discontinued. She was given 1 L of gentle IV fluids -schedule follow-up with Emelia who will be helpful in managing resistant hypertension #hypovolemic hyponatremia -present on admission with sodium 127, treated with IV fluids and resolved to 135 #lumbar radiculopathy follows outpatient with [facility] s/p L3-L4 interlaminar epidural steroid injection 06/15/25 Her home gabapentin was considered as possible cause of dizziness-> but this is a chronic medication and will be restarted at her usual dose of 100 mg p.o. at bedtime Tylenol as needed for pain #Elevated lipase - mildly elevated lipase persists however it is not in the pancreatitis range she is not having any signs or symptoms of pancreatitis and pancreas appeared normal on CT abdomen not clinically significant #Chronic constipation/history of recurrent diverticulitis-continue home Linzess DVT prophylaxis-SQ Lovenox Disposition-stable for discharge to home Notes For Next Care Provider Check B12 and vitamin D levels in 3 months May need to add metoprolol if BPs become elevated-caution with orthostasis Medication Changes From Visit Discontinued carvedilol for orthostasis Admission HPI Per Admitting Provider Ruba is an 79-year-old with recurrent history of diverticulitis, C. difficile colitis, chronic constipation/dyssynergic defecation, CKD stage III, hypertension, GERD, anxiety, fibromyalgia, depression, GERD, hyperlipidemia, and hypertension that presents to [facility] with complaints of dizziness and weakness over the course of the past week. She recently finished a course of oral Cipro due to recently diagnosed diverticulitis in the outpatient setting that was uncomplicated as her pain was tolerable and she was able to tolerate a clear liquid, low residue diet at home. Reports she believes that her oral intake has been adequate however her food intake has not been up to par. She denies nausea, vomiting or diarrhea. Her only specific complaint with her bout of diverticulitis was vague abdominal pain that has now fully resolved. Her main complaint today at time of admission is dizziness that is primarily provoked when she goes from a sitting to standing position. Reports that she was in the emergency department at [facility] a couple weeks ago due to hypertensive urgency and reported blood pressure recordings of 230s over 130s. In the emergency department they were concerned that she was possibly having a stroke as she did have some noted paresthesias to her face in conjunction with an elevated blood pressure. They treated her with oral medication and her blood pressure down trended and she was able to be successfully discharged with close follow-up with PCP in [place]. Her PCP changed some of her oral antihypertensives regimen. PCP had increased her HCTZ and spironolactone at that time then she followed up last week as she was dizzy and had a low BP. PCP then d/c'ed her HCTZ and spironolactone. States at times when she sits up and checks her BP it drops as low as 70s systolic. When she is lying at rest she is without dizziness or vertiginous symptoms. She denies pre-syncope or syncope. She does not use tobacco and does not drink ETOH. After full discussion with patient she wishes to be a full code. Discharge Exam Constitutional WD/WN, vitals as above Respiratory normal respiratory effort, lungs clear to auscultation Cardiovascular RRR, no murmur, no edema Chest (Breasts) Chest: normal inspection of chest Gastrointestinal (Abdomen) normal bowel sounds, soft, nontender, no hepatosplenomegaly Musculoskeletal Extremities: extremities normal to inspection; no cyanosis and no clubbing Skin no rashes, warm and dry Neurologic moves all extremities and awake; no focal motor deficits Psychiatric A+Ox3, euthymic affect Lymphatic no lymphedema Discharge Plan Discharge Items Patient Disposition: Home - Self-Care Reason For Visit: DIZZINESS, WEAKNESS Discharge Diagnosis: Orthostatic hypotension Vitamin D deficiency Vitamin B12 deficiency Condition on Discharge: Good Activity: Resume your previous activity Non-emergency contact: Primary Care Provider Call non-emergency contact if: you have any medication questions and your symptoms worsen Follow-up/Referrals: Peter Stark [Primary Care Provider] - (Follow-up within 1-2 weeks after discharge.) Diet: Regular Addtl Attending Provider Instructions: You were admitted with dizziness secondary to your blood pressures dropping when you stand up. Your carvedilol was discontinued and you had improvement. You also had low sodium levels and a mild acute kidney injury-both of these were from dehydration from the recent diuretics you were on. You were given IV fluids and this improved. Please follow your blood pressures closely at home and follow-up with your primary care provider within 1-2 weeks after discharge. It was a pleasure taking care of you! If you have any questions about your care before your hospital follow-up visit with your primary care provider, please call [phone] and ask to be transferred to the [facility] Medicine office. Sincerely, Trang Ponce M.D. Pending Studies at Discharge: Yes (Vitamin B1 level) Stand-Alone Forms: My [facility], Smoking Cessation Medications and DC Order Prescriptions: New cyanocobalamin (vitamin B-12) 1,000 mcg capsule 1,000 mcg PO DAILY Qty: 30 0RF Rx Instructions: [id number] gabapentin 100 mg Capsule 100 mg PO HS Qty: 30 0RF Continued potassium gluconate 500 mg (83 mg) tablet 500 mg PO DAILY famotidine 20 mg tablet 20 mg PO BID acetaminophen [Tylenol Extra Strength] 500 mg Tablet 1,000 mg PO Q6H PRN (Reason: Back Pain) Rx Instructions: 01/04- otc unable to verify amlodipine 10 mg tablet 5 mg PO QAM furosemide 20 mg tablet 20 mg PO DAILY PRN (Reason: WATER RETENTION) Linzess 145 mcg Capsule 145 mcg PO QAM Changed ergocalciferol (vitamin D2) [Vitamin D2] 1,250 mcg (50,000 unit) capsule 1,250 mcg PO Q7D Qty: 4 0RF losartan 100 mg Tablet 100 mg PO QAM Qty: 30 0RF Discontinued carvedilol 12.5 mg tablet 12.5 mg PO BID gabapentin 300 mg capsule 300 mg PO HS Qty: 90 1RF Discharge Orders: Discharge Order (Routine); Ordered 07/12/25 Ordered By: Trang Ponce Admission Data Admit Date/Time: 07/09/25 14:40 Attending Provider: Trang Ponce Admit Provider: Gela Nunez Primary Care Provider: Peter Stark Other Providers: Derian Ruiz Hospital Stay Data Consultations 07/09/25 13:26 ED Decision to Admit Stat Diagnostic Imagining Performed 07/09/25 10:41 CT abd pelvis wo con Stat CT head/brain wo con Stat 07/11/25 15:20 Carotid duplex [US carotid doppler BI] Routine Pending Results Patient Have Any Pending Studies at Discharge: Yes (Vitamin B1 level) Discharge Instructions Given to Patient (Per Discharging Provider) You were admitted with dizziness secondary to your blood pressures dropping when you stand up. Your carvedilol was discontinued and you had improvement. You also had low sodium levels and a mild acute kidney injury-both of these were from dehydration from the recent diuretics you were on. You were given IV fluids and this improved. Please follow your blood pressures closely at home and follow-up with your primary care provider within 1-2 weeks after discharge. It was a pleasure taking care of you! If you have any questions about your care before your hospital follow-up visit with your primary care provider, please call [phone] and ask to be transferred to the [facility] Medicine office. Sincerely, Trang Ponce M.D. Total Time Total Time Spent Total Time Spent (In Minutes): 35 minutes Total Time Includes: Examination of the Patient, Discharge Planning and Medication Reconciliation Coding Level of Care Code 97188 INP/OBS DISCH >30 MIN Diagnoses Orthostasis I95.1 Acute hyponatremia E87.1 GINA (acute kidney injury) N17.9 Hypertension I10
[2025-07-12] MEDS: FAMOTIDINE 20 MG TAB PO SCH (11:35)
[2025-07-12] MEDS: LINACLOTIDE 145 MCG CAPSULE PO SCH (11:36)
[2025-07-12] MEDS ORDERED: GABAPENTIN 100 MG CAP PO SCH (21:00)
== END 2025-07-12 12:19 | disposition home or self-care (01) | DRG 312 ==
LOC: ED 09:57 → EDINP 14:40 → SUATTDRO 14:40 → 2W 17:50